=== PATIENT | male | born 1935 | race Caucasian/White ===

== ENCOUNTER → 2016-09-07 | Outpatient (CLI) | payer OTHER ==
[~2016-09-07] MED LIST: ALFU1TAB37 PO; ASPI325T39 PO; B-COCAP20 PO; CALCTAB7 PO; CAPSCRE3 TOP; CHOL100027 PO; CLR/5 PO; CYM/60 PO; CYM60 PO; DUTA1CAP3 PO; DXY100 PO; FLUO0.05 TOP; GABA800T PO; HYDR12.56 PO; LEVO100T7 PO; LEVO125T72 PO; LOSA100T65 PO; LOSA1TAB38 PO; METO-217 PO; MOME100A INH; NRN800 PO; NRV5 PO; OMEP40CA PO; OMEP40CA41 PO; POLY335025 PO; PRS5 PO; SILD100T PO; SIMV20TA2 PO; TADA5TAB11 PO; TPRSR/50 PO; TPRSR50 PO; TROS1CAP2 PO; TROS60CA PO; VNTHFA/IN INH; ZNTT/150 PO
[2016-09-07 14:29] LABS: BASO % 0.5 %; BASO ABS # 0.04 K/uL (0-0.2); COMPLETE YES; EOS % 3.2 %; HEMATOCRIT 39.9 % (42-52); IG% 0.4 %; LYMPH % 23.6 %; LYMPH ABS # 1.83 K/uL (1.2-3.4); MEAN CELL VOLUME 88.1 fL (80-100); MEAN CORPUSCULAR HEMOGLOBIN 30.7 pg (25-34); MEAN CORPUSCULAR HGB CONC 34.8 g/dl (32-36); MEAN PLATELET VOLUME 9.7 fL (7.4-10.4); MONO % 11.5 %; NEUT % 60.8 %; PLATELET COUNT 225 K/uL (130-400); RED BLOOD COUNT 4.53 M/uL (4.7-6.1); WHITE BLOOD COUNT 7.77 K/uL (4.8-10.8)
[2016-09-07 14:33] LABS: ALT/SGPT 38 U/L (12-78); BLOOD UREA NITROGEN 18 mg/dl (7-18); CALCIUM 8.7 mg/dl (8.5-10.1); CARBON DIOXIDE 25 mmol/L (21-32); CHLORIDE 106 mmol/L (98-107); GLUCOSE 92 mg/dl (70-99); POTASSIUM 4.1 mmol/L (3.5-5.1); SODIUM 140 mmol/L (136-145)
[2016-09-07 14:44] LABS: ALB/GLOB RATIO 1.3 (0.9-2); ALKALINE PHOSPHATASE 107 U/L (45-117); AST/SGOT 24 U/L (15-37); CHOLESTEROL 147 mg/dl (0-200); HDL CHOLESTEROL 49 mg/dl; LDL CHOLESTEROL CALCULATED 56 mg/dl; TRIGLYCERIDES 208 mg/dl (0-150); VERY LOW DENSITY LIPOPROT CALC 42 mg/dl
== END | disposition home or self-care (01) ==
LOC: C.LABBC 10:29
PROVIDERS: ATTEND Internal Medicine Geriatric Medicine
DX: I10 Essential (primary) hypertension (principal); E78.5 Hyperlipidemia, unspecified; M19.90 Unspecified osteoarthritis, unspecified site; J45.909 Unspecified asthma, uncomplicated; E03.9 Hypothyroidism, unspecified; B02.22 Postherpetic trigeminal neuralgia; E55.9 Vitamin D deficiency, unspecified

== ENCOUNTER → 2016-11-26 | Outpatient (CLI) | payer OTHER ==
[2016-11-26 12:02] LABS: BLOOD UREA NITROGEN 19 mg/dl (7-18); BUN/CREATININE RATIO 17.6 (10-20); CALCIUM 8.9 mg/dl (8.5-10.1); CARBON DIOXIDE 28 mmol/L (21-32); CHLORIDE 107 mmol/L (98-107); GLUCOSE 95 mg/dl (70-99); SODIUM 142 mmol/L (136-145)
== END | disposition home or self-care (01) ==
LOC: C.LABBC 07:23
PROVIDERS: ATTEND Physician Assistant
DX: I10 Essential (primary) hypertension (principal)

== ENCOUNTER 2016-12-20 18:01 | Inpatient (IN) | payer OTHER ==
[~2016-12-20] VITALS: Ht 172.7 cm; Wt 87.6 kg
[~2016-12-20 18:01] MED LIST changes: -B-COCAP20 PO; -CALCTAB7 PO; -CAPSCRE3 TOP; -CYM60 PO; -DUTA1CAP3 PO; -DXY100 PO; -HYDR12.56 PO; -LEVO100T7 PO; -LOSA100T65 PO; -MOME100A INH; -NRN800 PO; -NRV5 PO; -OMEP40CA41 PO; -PRS5 PO; -TADA5TAB11 PO; -TPRSR/50 PO; -TPRSR50 PO; -TROS1CAP2 PO; -VNTHFA/IN INH; -ZNTT/150 PO
[2016-12-20] MEDS ORDERED: SODIUM CHLORIDE 0.9% 1000ML 1,000 ML IV SCH (18:54)
--- NOTE | 2016-12-20 19:24 | DIAGNOSTIC IMAGING REPORT ---
SINGLE VIEW CHEST CLINICAL HISTORY: Strokelike symptoms. FINDINGS: An AP, portable, upright chest radiograph is compared to study dated 07/27/2016. The examination is degraded by portable technique and apical lordotic positioning. The heart is enlarged and there is atherosclerotic calcification of the thoracic aorta. The pulmonary vasculature is noncongested. A hiatal hernia is again noted. Chronic interstitial thickening is unchanged. No airspace consolidation or large pleural effusion is identified. There is mild bibasilar atelectasis. No pneumothorax is seen. The skeletal structures are osteopenic. The bony thorax is grossly intact. IMPRESSION: 1. Cardiomegaly with no acute cardiopulmonary abnormality. 2. Hiatal hernia. Electronically signed by: Anthony Mercado M.D. 12/20/2016 7:23 PM Dictated Date/Time: 12/20/2016 7:22 PM
[2016-12-20 19:31] LABS: INR 1.1 (0.9-1.1); PARTIAL THROMBOPLASTIN RATIO 1.2; PROTHROMBIN TIME (PATIENT) 11.3 SECONDS (9.0-12.0)
[2016-12-20 19:32] LABS: POTASSIUM 3.7 mmol/L (3.5-5.1)
--- NOTE | 2016-12-20 19:40 | EMERGENCY ROOM VISIT NOTE ---
History Report prepared by Yayo: Tony Singh Under the Supervision of: Dr. Anand Mueller M.D. First contact with patient: 18:47 Chief Complaint: WEAKNESS Stated Complaint: COLD, INCONTINENCE, WEAK History of Present Illness The patient is a 81 year old male who presents to the Emergency Room with complaints of persistent chills for the past few days. The patient also complains of weakness and incontinence. The patient notes that he has been weak for the past week. The patient notes difficulty getting in and out of bed and walking long distances. The patient had multiple episodes of incontinence over the weekend. He notes he has never had incontinence episodes before in the past. Per patient, he does not think his speech is any different than baseline. He does not have any history of stroke or TIA. The patient does take blood pressure medications for hypertension which has been pretty well controlled with his newest medicine. He denies any pain at this time. Source of History: patient Onset: past few days Position: other (global) Timing: other (persistent) Associated Symptoms: + urinary symptoms (incontinence), + weakness Note: Other associated symptoms: difficulty getting in and out of bed, difficulty walking long distances Denies: changes in speech, pain Review of Systems All systems have been listed, reviewed, and are negative other than those previously mentioned. Please see Additional Medical History Sheet. Past Medical & Surgical Medical Problems: (1) Asthma (2) Chest pain (3) Enlarged prostate Family History Patient reports no known family medical history. Social History Smoking Status: Never Smoker Alcohol Use: occasionally Marital Status: Housing Status: lives with significant other Occupation Status: employed Current/Historical Medications Scheduled Alfuzosin HCl (Uroxatral), 10 MG PO HS Aspirin (Aspirin Ec), 325 MG PO DAILY Calcium Carbonate-Vitamin D W/ (Caltrate 600 Plus), 1 TAB PO BID Cholecalciferol (Vitamin D 1000 Unit), 1,000 INTER.UNIT PO DAILY Duloxetine HCl (Duloxetine HCl), 60 MG PO DAILY Dutasteride (Dutasteride), 0.5 MG PO DAILY Gabapentin (Gabapentin), 800 MG PO TID Hydrochlorothiazide (Hctz), 12.5 MG PO DAILY Levothyroxine Sodium (Levothyroxine Sodium), 100 MCG PO DAILY Losartan Potassium (Cozaar), 100 MG PO DAILY Metoprolol Succinate (Metoprolol Succinate ER), 50 MG PO DAILY Mometasone Furoate-Formoterol (Dulera 100/5 Mcg), 2 PUFFS INH Q12 Omeprazole (Prilosec), 40 MG PO DAILY Polyethylene Glycol 3350 (Miralax), 1 TBS PO HS Ranitidine (Zantac), 150 MG PO HS Simvastatin (Zocor), 20 MG PO QPM Tadalafil (Cialis), 5 MG PO DAILY Trospium Chloride (Trospium Chloride Er), 60 MG PO DAILY Scheduled PRN Albuterol Hfa (Ventolin Hfa), 2 PUFF INH Q4 PRN for Shortness of Breath Capsaicin (Zostrix Arthritis Pain Re), 1 APPLN TOP QID PRN for Pain Desloratadine (Clarinex), 5 MG PO DAILY PRN for ALLERGIES Allergies Coded Allergies: Erythromycin (Verified Allergy, Intermediate, THROAT BEGAN TO SWELL SHUT, 09/04/15) PT Lisinopril (Verified Adverse Reaction, Intermediate, COUGH, 09/04/15) Atorvastatin (Verified Adverse Reaction, Unknown, MYALGIAS, 09/04/15) PT/ALLSCRIPTS Physical Exam Vital Signs Date Time Temp Pulse Resp B/P Pulse Ox O2 Delivery O2 Flow Rate FiO2 12/20/16 22:00 124 22 117/86 92 Nasal Cannula 2.0 12/20/16 21:30 126 22 147/81 93 Nasal Cannula 2.0 12/20/16 20:29 119 22 158/79 94 Nasal Cannula 2.0 12/20/16 20:28 88 Room Air 12/20/16 19:51 118 16 154/73 93 Room Air 12/20/16 19:27 113 12/20/16 19:16 114 18 154/68 93 Room Air 12/20/16 19:15 93 Room Air 12/20/16 18:39 37.4 99 20 106/68 97 Room Air Physical Exam GENERAL: Patient awake, alert, oriented x 3. Patient follows commands. Patient does not appear toxic. Patient is adequately hydrated and well- nourished. Speech is okay. SKIN: Mottled appearance to his abdomen. HEENT: Normal head, pupils equal, reactive to light and accommodation. Left eye slightly red. Left facial droop. Oral cavity and posterior pharynx appear normal. Neck: Without adenopathy, no neck vein distention. LUNGS: Clear to auscultation. No wheezes, no rales, no rhonchi. HEART: No murmurs. No gallops. No rubs ABDOMEN: No masses, no rebound, no hepatomegaly or splenomegaly. Mottled appearance to skin over abdomen. EXTREMITIES: Weakness of left leg, other extremities appear okay. NEUROLOGIC: Cranial nerves II-XII within normal limits. See nurses' note fo NIH stroke score. Medical Decision & Procedures ER Provider Diagnostic Interpretation: Radiology results as stated below per my review and radiologist interpretation: CT SCAN OF THE BRAIN WITHOUT IV CONTRAST CLINICAL HISTORY: Strokelike symptoms. COMPARISON STUDY: No priors. TECHNIQUE: Unenhanced axial CT scan of the brain is performed from the vertex to the skull base. CT DOSE: 909.34 mGy.cm FINDINGS: Brain parenchyma: There are age-related involutional changes noting mild subcortical and periventricular microangiopathic change. There is no hemorrhage, mass effect, or evidence of acute territorial ischemia by CT criteria. Ponce-white matter is preserved. No extra-axial fluid collection is seen. Ventricles, sulci, cisterns: Prominent secondary to involutional change. Intracranial vasculature: There is atherosclerotic calcification of the cavernous carotid and vertebral arteries. Calvarium: Unremarkable. Sinuses and mastoids: There are large retention cyst within the maxillary antra. The paranasal sinuses are otherwise clear. The mastoid air cells are well pneumatized. Orbits: The bony orbits are grossly intact. There is a left ocular lens implant. IMPRESSION: There is no hemorrhage, mass effect, or evidence of acute territorial ischemia by CT criteria. Electronically signed by: Anthony Mercado M.D. 12/20/2016 7:50 PM Dictated Date/Time: 12/20/2016 7:48 PM SINGLE VIEW CHEST CLINICAL HISTORY: Strokelike symptoms. FINDINGS: An AP, portable, upright chest radiograph is compared to study dated 07/27/2016. The examination is degraded by portable technique and apical lordotic positioning. The heart is enlarged and there is atherosclerotic calcification of the thoracic aorta. The pulmonary vasculature is noncongested. A hiatal hernia is again noted. Chronic interstitial thickening is unchanged. No airspace consolidation or large pleural effusion is identified. There is mild bibasilar atelectasis. No pneumothorax is seen. The skeletal structures are osteopenic. The bony thorax is grossly intact. IMPRESSION: 1. Cardiomegaly with no acute cardiopulmonary abnormality. 2. Hiatal hernia. Electronically signed by: Anthony Mercado M.D. 12/20/2016 7:23 PM Dictated Date/Time: 12/20/2016 7:22 PM Laboratory Results 12/20/16 19:05 Red Blood Count 4.77, Mean Corpuscular Volume 88.3, Mean Corpuscular Hemoglobin 30.8, Mean Corpuscular Hemoglobin Concent 34.9, Mean Platelet Volume 11.1, Neutrophils (%) (Auto) 83.2, Lymphocytes (%) (Auto) 7.8, Monocytes (%) (Auto) 7.3, Eosinophils (%) (Auto) 0.2, Basophils (%) (Auto) 0.4, Neutrophils # (Auto) 4.36, Lymphocytes # (Auto) 0.41, Monocytes # (Auto) 0.38, Eosinophils # (Auto) 0.01, Basophils # (Auto) 0.02 12/20/16 19:05 Test 12/20/16 19:05 12/20/16 22:02 12/20/16 22:16 White Blood Count 5.24 K/uL (4.8-10.8) Red Blood Count 4.77 M/uL (4.7-6.1) Hemoglobin 14.7 g/dL (14.0-18.0) Hematocrit 42.1 % (42-52) Mean Corpuscular Volume 88.3 fL (80-100) Mean Corpuscular Hemoglobin 30.8 pg (25-34) Mean Corpuscular Hemoglobin Concent 34.9 g/dl (32-36) Platelet Count 47 K/uL (130-400) Mean Platelet Volume 11.1 fL (7.4-10.4) Neutrophils (%) (Auto) 83.2 % Lymphocytes (%) (Auto) 7.8 % Monocytes (%) (Auto) 7.3 % Eosinophils (%) (Auto) 0.2 % Basophils (%) (Auto) 0.4 % Neutrophils # (Auto) 4.36 K/uL (1.4-6.5) Lymphocytes # (Auto) 0.41 K/uL (1.2-3.4) Monocytes # (Auto) 0.38 K/uL (0.11-0.59) Eosinophils # (Auto) 0.01 K/uL (0-0.5) Basophils # (Auto) 0.02 K/uL (0-0.2) RDW Standard Deviation 45.8 fL (36.4-46.3) RDW Coefficient of Variation 14.1 % (11.5-14.5) Immature Granulocyte % (Auto) 1.1 % Immature Granulocyte # (Auto) 0.06 K/uL (0.00-0.02) Platelet Estimate DECREASED Red Blood Cell Morphology Unremarkable Prothrombin Time 11.3 SECONDS (9.0-12.0) Prothromb Time International Ratio 1.1 (0.9-1.1) Activated Partial Thromboplast Time 30.6 SECONDS (21.0-31.0) Partial Thromboplastin Ratio 1.2 Anion Gap 12.0 mmol/L (3-11) Est Creatinine Clear Calc Drug Dose 22.6 ml/min Estimated GFR () 21.9 Estimated GFR (Non- 18.9 BUN/Creatinine Ratio 17.0 (10-20) Calcium Level 9.0 mg/dl (8.5-10.1) Total Bilirubin 1.9 mg/dl (0.2-1) Aspartate Amino Transf (AST/SGOT) 147 U/L (15-37) Alanine Aminotransferase (ALT/SGPT) 66 U/L (12-78) Alkaline Phosphatase 79 U/L (45-117) Total Protein 7.8 gm/dl (6.4-8.2) Albumin 3.7 gm/dl (3.4-5.0) Globulin 4.1 gm/dl (2.5-4.0) Albumin/Globulin Ratio 0.9 (0.9-2) Creatine Kinase MB Ratio (0-3.0) Laboratory results as stated above per my review. Medications Administered Medications (Trade) Dose Ordered Sig/Sheree Route Start Time Stop Time Status Last Admin Dose Admin Sodium Chloride (Nss 1000ml) 1,000 ml @ 50 mls/hr Q20H IV 12/20/16 18:54 01/19/17 18:53 12/20/16 20:32 50 MLS/HR ECG Indication: other Rate (beats per minute): 115 Rhythm: sinus tachycardia Findings: nonspecific-ST abn, no ectopy ED Course 1850: Past medical records reviewed. The patient was evaluated in room C7. A complete history and physical examination was performed. 1853: Ordered NSS 1000 ml @ 50 mls/hr IV. 2117: At this time, I discussed the patient's case with Dr. Fareed BETTENCOURT and he agreed to accept the patient for further evaluation. Medical Decision Differential diagnoses include TIA, CVA, intracranial hemorrhage, recent history of herpetic infection. The patient has a slight droop on the left side of his face. Also has some left leg weakness. The meantime his troponin returned significantly elevated. The patient does not have any marked changes on his EKG. Multiple other labs were obtained. BUN and creatinine are elevated. AST and bilirubin are also elevated. Please see above. The patient may have had a myocardial infarction within the past week. That is when his symptoms began. He also may have had a small stroke although CT does not reveal any findings. The patient does not meet criteria for TPA due to his extended last well-known time. I discussed care with the patient and with the hospitalist. Consults Time Called: 2111 Consulting Physician: Dr. Fareed BETTENCOURT Returned Call: [phone] At this time, I discussed the patient's case with Dr. Guerrier and he agreed to accept the patient for further evaluation. Impression Primary Impression: Elevated troponin Additional Impression: Stroke-like symptoms Scribe Attestation The scribe's documentation has been prepared under my direction and personally reviewed by me in its entirety. I confirm that the note above accurately reflects all work, treatment, procedures, and medical decision making performed by me. Departure Information Dispostion Being Evaluated By Hospitalist Referrals Gio Angel M.D. (PCP) Stroke History Time Last Known Well One Week Ago Stroke t-PA Criteria Reviewed Does NOT meet criteria for t-PA Reason t-PA Not Given Treatment not indicated (patient does not meet crtieria for TPA due to lengthy last known well time) Problem Qualifiers
[2016-12-20 19:45] LABS: ALB/GLOB RATIO 0.9 (0.9-2)
--- NOTE | 2016-12-20 19:51 | DIAGNOSTIC IMAGING REPORT ---
CT SCAN OF THE BRAIN WITHOUT IV CONTRAST CLINICAL HISTORY: Strokelike symptoms. COMPARISON STUDY: No priors. TECHNIQUE: Unenhanced axial CT scan of the brain is performed from the vertex to the skull base. CT DOSE: 909.34 mGy.cm FINDINGS: Brain parenchyma: There are age-related involutional changes noting mild subcortical and periventricular microangiopathic change. There is no hemorrhage, mass effect, or evidence of acute territorial ischemia by CT criteria. Ponce-white matter is preserved. No extra-axial fluid collection is seen. Ventricles, sulci, cisterns: Prominent secondary to involutional change. Intracranial vasculature: There is atherosclerotic calcification of the cavernous carotid and vertebral arteries. Calvarium: Unremarkable. Sinuses and mastoids: There are large retention cyst within the maxillary antra. The paranasal sinuses are otherwise clear. The mastoid air cells are well pneumatized. Orbits: The bony orbits are grossly intact. There is a left ocular lens implant. IMPRESSION: There is no hemorrhage, mass effect, or evidence of acute territorial ischemia by CT criteria. Electronically signed by: Anthony Mercado M.D. 12/20/2016 7:50 PM Dictated Date/Time: 12/20/2016 7:48 PM
[2016-12-20] MEDS ORDERED: LOSA100T65 PO (19:54)
[2016-12-20] MEDS ORDERED: CAPSCRE3 TOP (19:54)
[2016-12-20] MEDS ORDERED: VNTHFA/IN INH (19:54)
[2016-12-20] MEDS ORDERED: CALCTAB7 PO (19:54)
[2016-12-20] MEDS ORDERED: ZNTT/150 PO (19:54)
[2016-12-20] MEDS ORDERED: MOME100A INH (19:54)
[2016-12-20] MEDS ORDERED: HYDR12.56 PO (19:54)
[2016-12-20] MEDS ORDERED: TPRSR/50 PO (19:54)
[2016-12-20] MEDS ORDERED: CYM60 PO (19:54)
[2016-12-20] MEDS ORDERED: OMEP40CA41 PO (19:54)
[2016-12-20] MEDS ORDERED: TADA5TAB11 PO (19:54)
[2016-12-20] MEDS ORDERED: LEVO100T7 PO (19:54)
[2016-12-20] MEDS ORDERED: DUTA1CAP3 PO (19:54)
[2016-12-20] MEDS ORDERED: NRN800 PO (19:54)
[2016-12-20] MEDS ORDERED: TROS1CAP2 PO (19:54)
[2016-12-20] MEDS ORDERED: ASPI325T39 PO (19:54)
[2016-12-20 20:18] LABS: HEMATOCRIT 42.1 % (42-52); MEAN CELL VOLUME 88.3 fL (80-100); MEAN CORPUSCULAR HEMOGLOBIN 30.8 pg (25-34); MEAN CORPUSCULAR HGB CONC 34.9 g/dl (32-36); MEAN PLATELET VOLUME 11.1 fL (7.4-10.4); PLATELET COUNT 47 K/uL (130-400); RED BLOOD COUNT 4.77 M/uL (4.7-6.1); WHITE BLOOD COUNT 5.24 K/uL (4.8-10.8)
[2016-12-20 20:24] LABS: BASO % 0.4 %; BASO ABS # 0.02 K/uL (0-0.2); COMPLETE YES; EOS % 0.2 %; IG% 1.1 %; LYMPH % 7.8 %; LYMPH ABS # 0.41 K/uL (1.2-3.4); MONO % 7.3 %; NEUT % 83.2 %; PLT ESTIMATE DECREASED
[2016-12-20] MEDS ORDERED: LORATADINE 10 MG TAB PO PRN (22:00)
[2016-12-20] MEDS ORDERED: NITROGLYCERIN 0.4 MG SL PER TAB CHARGE SL PRN (22:00)
[2016-12-20] MEDS ORDERED: METOPROLOL SUCC 50MG EXT REL TAB PO STA (22:05)
[2016-12-20] MEDS ORDERED: PIPERACILLIN/TAZOBACTAM 4.5 GM/100ML D5W IV STA (22:06)
--- NOTE | 2016-12-20 22:14 | History and Physical ---
History & Physical Date & Time of Service: December 20, 2016 at 22:09 Chief Complaint: Cold, Incontinence, Weak Primary Care Physician: Gio Angel M.D. History of Present Illness Source: patient, family The patient is a 81 yo male who was visiting a friend in [place] 3 days ago , when he started to develop fever and chills, and then travelled back home. Over the next 2 days he has had several episodes ( up to 18) episodes of urinary incontinence., and has become progressively more fatigued and SOB, but denies chest pain. He denies blood in urine or stool. He has a known issue with frequent urination, and is on meds for that. His son has noticed him having SOB , but no chest pain during this time, and that he has been taking shorter steps in a type of festinating gait, being more unsure of himself when he walks. Neither the son or the patient have noticed focal weakness of arms or legs on right or left side, but the patient reports that he has felt generally more tired and weak. The son also reports upon questioning that he thinks his father' s left sided facial droop worsened about 1 1/2 weeks ago. Past Medical/Surgical History Medical Problems: (1) Asthma Status: Chronic (2) Enlarged prostate Status: Chronic Family History Patient reports no known family medical history. Social History Smoking Status: Never Smoker Smokeless Tobacco Use: No Alcohol Use: none Drug Use: none Occupational Status: retired Multi-Drug Resistant Organisms History of MDRO: No Allergies Coded Allergies: Erythromycin (Verified Allergy, Intermediate, THROAT BEGAN TO SWELL SHUT, 09/04/15) PT Lisinopril (Verified Adverse Reaction, Intermediate, COUGH, 09/04/15) Atorvastatin (Verified Adverse Reaction, Unknown, MYALGIAS, 09/04/15) PT/ALLSCRIPTS Home Medications Scheduled Alfuzosin HCl (Uroxatral), 10 MG PO HS Aspirin (Aspirin Ec), 325 MG PO DAILY Calcium Carbonate-Vitamin D W/ (Caltrate 600 Plus), 1 TAB PO BID Cholecalciferol (Vitamin D 1000 Unit), 1,000 INTER.UNIT PO DAILY Duloxetine HCl (Duloxetine HCl), 60 MG PO DAILY Dutasteride (Dutasteride), 0.5 MG PO DAILY Gabapentin (Gabapentin), 800 MG PO TID Hydrochlorothiazide (Hctz), 12.5 MG PO DAILY Levothyroxine Sodium (Levothyroxine Sodium), 100 MCG PO DAILY Losartan Potassium (Cozaar), 100 MG PO DAILY Metoprolol Succinate (Metoprolol Succinate ER), 50 MG PO DAILY Mometasone Furoate-Formoterol (Dulera 100/5 Mcg), 2 PUFFS INH Q12 Omeprazole (Prilosec), 40 MG PO DAILY Polyethylene Glycol 3350 (Miralax), 1 TBS PO HS Ranitidine (Zantac), 150 MG PO HS Simvastatin (Zocor), 20 MG PO QPM Tadalafil (Cialis), 5 MG PO DAILY Trospium Chloride (Trospium Chloride Er), 60 MG PO DAILY Scheduled PRN Albuterol Hfa (Ventolin Hfa), 2 PUFF INH Q4 PRN for Shortness of Breath Capsaicin (Zostrix Arthritis Pain Re), 1 APPLN TOP QID PRN for Pain Desloratadine (Clarinex), 5 MG PO DAILY PRN for ALLERGIES Review of Systems Constitutional: + chills, + fatigue, + fever, + weakness, No sweats, No weight loss Eyes: No diplopia, No discharge, No eye pain, No problem reported, No redness, No worsening of vision ENT: No dental problems, No hearing loss, No nasal symptoms, No problem reported, No sore throat, No tinnitus, No trouble swallowing, No unusual epistaxis Respiratory: + dyspnea on exertion, + shortness of breath, No cough, No dyspnea at rest, No hemoptysis, No sputum, No wheezing Cardiovascular: No PND, No chest pain, No claudication, No edema, No orthopnea , No palpitations, No problem reported Abdomen: + diarrhea, + nausea, No GI bleeding, No constipation, No pain, No vomiting Musculoskeletal: No calf pain, No joint pain, No muscle pain, No problem reported, No swelling Genitourinary - Male: + urinary frequency, + urinary incontinence, + urinary retention, + urinary urgency, No dysuria, No hematuria, No impotence, No lesions , No penile discharge, No urinary hesitancy Psychiatric: No anhedonism, No anxiety, No depression symptoms, No insomnia, No problem reported, No substance abuse Endocrine: No excessive thirst, No excessive urination, No fatigue, No problem reported Hematologic / Lymphatic: No abnormal bleeding/bruising, No clotting problems, No night sweats, No problem reported, No swollen lymph nodes Integumentary: No bleeding, No color change, No itch, No new/changing skin lesions, No problem reported, No rash Allergic / Immunologic: No environmental allergies, No food allergies, No frequent infections, No hives, No pet sensitivities, No poor healing, No problem reported, No prolonged convalescence, No seasonal allergies Physical Exam Vital Signs Date Time Temp Pulse Resp B/P Pulse Ox O2 Delivery O2 Flow Rate FiO2 12/20/16 21:30 126 22 147/81 93 Nasal Cannula 2.0 12/20/16 20:29 119 22 158/79 94 Nasal Cannula 2.0 12/20/16 20:28 88 Room Air 12/20/16 19:51 118 16 154/73 93 Room Air 12/20/16 19:27 113 12/20/16 19:16 114 18 154/68 93 Room Air 12/20/16 19:15 93 Room Air 12/20/16 18:39 37.4 99 20 106/68 97 Room Air General Appearance: + mild distress, + pertinent finding (left facial droop.) Head: normocephalic, atraumatic Eyes: normal inspection, PERRL, EOMI, sclerae normal ENT: normal ENT inspection, hearing grossly normal, pharynx normal Neck: supple, no adenopathy, thyroid normal, no JVD, no carotid bruits, trachea midline Respiratory/Chest: chest non-tender, lungs clear, no respiratory distress, no accessory muscle use, + decreased breath sounds Cardiovascular: no gallop, no JVD, no murmur, normal peripheral pulses, + tachycardia Abdomen/GI: normal bowel sounds, non tender, soft, no organomegaly, no pulsatile mass Back: normal inspection, no CVA tenderness, no muscle spasm, normal range of motion Extremities/Musculoskelatal: normal inspection, no calf tenderness, normal capillary refill, normal range of motion, non-tender, + pedal edema (1+ bilateral) Neurologic/Psych: processing specialist II-XII nml as tested, no motor/sensory deficits, alert, normal mood/affect, oriented x 3 Skin: normal color, warm/dry, no rash Lymphatic: no adenopathy Diagnostics Laboratory Results Results Past 24 Hours Test 12/20/16 19:05 5/1/17 22:02 Range/Units White Blood Count 5.24 4.8-10.8 K/uL Red Blood Count 4.77 4.7-6.1 M/uL Hemoglobin 14.7 14.0-18.0 g/dL Hematocrit 42.1 42-52 % Mean Corpuscular Volume 88.3 80-100 fL Mean Corpuscular Hemoglobin 30.8 25-34 pg Mean Corpuscular Hemoglobin Concent 34.9 32-36 g/dl Platelet Count 47 130-400 K/uL Mean Platelet Volume 11.1 7.4-10.4 fL Neutrophils (%) (Auto) 83.2 % Lymphocytes (%) (Auto) 7.8 % Monocytes (%) (Auto) 7.3 % Eosinophils (%) (Auto) 0.2 % Basophils (%) (Auto) 0.4 % Neutrophils # (Auto) 4.36 1.4-6.5 K/uL Lymphocytes # (Auto) 0.41 1.2-3.4 K/uL Monocytes # (Auto) 0.38 0.11-0.59 K/uL Eosinophils # (Auto) 0.01 0-0.5 K/uL Basophils # (Auto) 0.02 0-0.2 K/uL RDW Standard Deviation 45.8 36.4-46.3 fL RDW Coefficient of Variation 14.1 11.5-14.5 % Immature Granulocyte % (Auto) 1.1 % Immature Granulocyte # (Auto) 0.06 0.00-0.02 K/uL Platelet Estimate DECREASED Red Blood Cell Morphology Unremarkable Prothrombin Time 11.3 9.0-12.0 SECONDS Prothromb Time International Ratio 1.1 0.9-1.1 Activated Partial Thromboplast Time 30.6 21.0-31.0 SECONDS Partial Thromboplastin Ratio 1.2 Sodium Level 139 136-145 mmol/L Potassium Level 3.7 3.5-5.1 mmol/L Chloride Level 102 98-107 mmol/L Carbon Dioxide Level 25 21-32 mmol/L Anion Gap 12.0 3-11 mmol/L Blood Urea Nitrogen 51 7-18 mg/dl Creatinine 3.00 0.60-1.40 mg/dl Est Creatinine Clear Calc Drug Dose 22.6 ml/min Estimated GFR () 21.9 Estimated GFR (Non- 18.9 BUN/Creatinine Ratio 17.0 10-20 Random Glucose 119 70-99 mg/dl Calcium Level 9.0 8.5-10.1 mg/dl Total Bilirubin 1.9 0.2-1 mg/dl Aspartate Amino Transf (AST/SGOT) 147 15-37 U/L Alanine Aminotransferase (ALT/SGPT) 66 12-78 U/L Alkaline Phosphatase 79 45-117 U/L Troponin I 13.000 0-0.045 ng/ml Total Protein 7.8 6.4-8.2 gm/dl Albumin 3.7 3.4-5.0 gm/dl Globulin 4.1 2.5-4.0 gm/dl Albumin/Globulin Ratio 0.9 0.9-2 Diagnostic Radiology Patient Name: CHARLEY BROWN Unit Number: [id number] Dictated: 12/20/161947 Transcribed: 12/20/161947 EV Printed Date/Time: [~ rep prt dt]/[~ rep prt tm] [~ rep ct labl] - [~ rep ct ivnm] [facility] [place] [address] Dictated: 12/20/161947 Transcribed: 12/20/161947 EV Printed Date/Time: [~ rep prt dt]/[~ rep prt tm] [~ rep ct labl] - [~ rep ct ivnm] CT SCAN OF THE BRAIN WITHOUT IV CONTRAST CLINICAL HISTORY: Strokelike symptoms. COMPARISON STUDY: No priors. TECHNIQUE: Unenhanced axial CT scan of the brain is performed from the vertex to the skull base. CT DOSE: 909.34 mGy.cm FINDINGS: Brain parenchyma: There are age-related involutional changes noting mild subcortical and periventricular microangiopathic change. There is no hemorrhage, mass effect, or evidence of acute territorial ischemia by CT criteria. Ponce-white matter is preserved. No extra-axial fluid collection is seen. Ventricles, sulci, cisterns: Prominent secondary to involutional change. Intracranial vasculature: There is atherosclerotic calcification of the cavernous carotid and vertebral arteries. Calvarium: Unremarkable. Sinuses and mastoids: There are large retention cyst within the maxillary antra. The paranasal sinuses are otherwise clear. The mastoid air cells are well pneumatized. Orbits: The bony orbits are grossly intact. There is a left ocular lens implant. IMPRESSION: There is no hemorrhage, mass effect, or evidence of acute territorial ischemia by CT criteria. Electronically signed by: Anthony Mercado M.D. 12/20/2016 7:50 PM Dictated Date/Time: 12/20/2016 7:48 PM The status of this report is Signed. Draft = Not yet reviewed or approved by Radiologist. Signed = Reviewed and approved by Radiologist. <AttendingPhy></AttendingPhy> <FamilyPhy>Gio Angel M.D.</FamilyPhy> < PrimaryPhy>Gio Angel M.D.</PrimaryPhy> <UnitNumber>[id number]</UnitNumber > <VisitNumber>[id number]</VisitNumber> <PatientName>NATICHARLEY COLLINS</ PatientName> <DateOfBirth>1935</DateOfBirth> <Location>[facility]</Location> < ServiceDate>12/20/16</ServiceDate> <MNE>ESINDI</MNE> <OrderingPhy>Anand Mueller M.D.</OrderingPhy> <OrderingPhyMNE>f rep ord dr still</OrderingPhyMNE> < DictatingPhyMNE>f rep dict dr still</DictatingPhyMNE> <CCListMNE>f rep ct daoe</ CCListMNE> <AdmittingPhyMNE>f pt admit dr still</AdmittingPhyMNE> <AttendingPhyMNE >f pt attend dr still</AttendingPhyMNE> <ConsultingPhyMNE>f pt consult dr still</ConsultingPhyMNE> <FamilyPhyMNE>f pt fam dr still</FamilyPhyMNE> <OtherPhyMNE>f pt other dr still</OtherPhyMNE> < PrimaryPhyMNE>f pt prim care dr still</PrimaryPhyMNE> <ReferringPhyMNE>f pt referring dr still</ReferringPhyMNE> Patient Name: CHARLEY BROWN Unit Number: [id number] Dictated: 12/20/161921 Transcribed: 12/20/161921 EV Printed Date/Time: [~ rep prt dt]/[~ rep prt tm] [~ rep ct labl] - [~ rep ct ivnm] [facility] [place] [place] [address] Dictated: 12/20/161921 Transcribed: 12/20/161921 EV Printed Date/Time: [~ rep prt dt]/[~ rep prt tm] [~ rep ct labl] - [~ rep ct ivnm] SINGLE VIEW CHEST CLINICAL HISTORY: Strokelike symptoms. FINDINGS: An AP, portable, upright chest radiograph is compared to study dated 07/27/2016. The examination is degraded by portable technique and apical lordotic positioning. The heart is enlarged and there is atherosclerotic calcification of the thoracic aorta. The pulmonary vasculature is noncongested. A hiatal hernia is again noted. Chronic interstitial thickening is unchanged. No airspace consolidation or large pleural effusion is identified. There is mild bibasilar atelectasis. No pneumothorax is seen. The skeletal structures are osteopenic. The bony thorax is grossly intact. IMPRESSION: 1. Cardiomegaly with no acute cardiopulmonary abnormality. 2. Hiatal hernia. Electronically signed by: Anthony Mercado M.D. 12/20/2016 7:23 PM Dictated Date/Time: 12/20/2016 7:22 PM The status of this report is Signed. Draft = Not yet reviewed or approved by Radiologist. Signed = Reviewed and approved by Radiologist. <AttendingPhy></AttendingPhy> <FamilyPhy>Gio Angel M.D.</FamilyPhy> < PrimaryPhy>Gio Angel M.D.</PrimaryPhy> <UnitNumber>[id number]</UnitNumber > <VisitNumber>[id number]</VisitNumber> <PatientName>STEPHANIECHARLEY</ PatientName> <DateOfBirth>1935</DateOfBirth> <Location>[facility]</Location> < ServiceDate>12/20/16</ServiceDate> <MNE>ESINDI</MNE> <OrderingPhy>Anand Mueller M.D.</OrderingPhy> <OrderingPhyMNE>f rep ord dr mne</OrderingPhyMNE> < DictatingPhyMNE>f rep dict dr still</DictatingPhyMNE> <CCListMNE>f rep ct mne</ CCListMNE> <AdmittingPhyMNE>f pt admit dr still</AdmittingPhyMNE> <AttendingPhyMNE >f pt attend dr still</AttendingPhyMNE> <ConsultingPhyMNE>f pt consult dr still</ConsultingPhyMNE> <FamilyPhyMNE>f pt fam dr still</FamilyPhyMNE> <OtherPhyMNE>f pt other dr still</OtherPhyMNE> < PrimaryPhyMNE>f pt prim care dr still</PrimaryPhyMNE> <ReferringPhyMNE>f pt referring dr still</ReferringPhyMNE> EKG EKG shows sinus tachycardia at 111 bpm, prominent Q wave in lead III, mild ST depressions in leads V5 and V6. Impression Assessment and Plan NSTEMI/hypertension--troponin was elevated at 13.00. The patient will be admitted to the telemetry unit for serial cardiac enzymes, cardiac rhythm monitoring and a 2-D echocardiogram with Dopplers. We'll consult cardiology. Continue metoprolol succinate ER 50 mg by mouth daily Left facial droop/relative weakness of left leg and attempting to lift--the patient's son reports he noted the worsening left patient to be about one weeks ago. The patient's relative weakness in the left leg upon attending the left may be associated with his left total hip arthroplasty, as his ability to push down with this foot and pullback with his foot is very good. He's had a CT of the head which is negative, and will order an MRI brain and MRA of the head without contrast ( due to ARF), and Carotid Dopplers. Will hold his aspirin 325 mg by mouth daily at this time due to low platelets. Prostatitis/urinary incontinence/BPH--patient's symptoms of fevers and chills began when he made a 1 1/2 hour trip by car to [place], and then upon return 1 1/2 hour trip began to develop urinary incontinence for the next 2 days. This is also let him to be quite dehydrated. He'll be placed on Zosyn 3.375 mg IV every 8 hours, after initial 4.5 g dose. We'll follow urine culture and sensitivity results. Continue Uroxatral 10 mg by mouth at bedtime, and dutasteride 0.5 mg by mouth daily. For now hold Cialis 5 mg by mouth daily and is trospium chloride ER 60 mg by mouth daily. Acute renal failure--patient's creatinine of 3.00 significantly elevated from is 1.1 on November 26. Likely secondary to dehydration from increased urination, we 'll place a Bynum catheter, and hydrate with IV fluids. We'll follow serial BMP and magnesium levels. Hold losartan 100 mg by mouth daily and HCTZ 12.5 mg by mouth daily. Thrombocytopenia--platelets were 47 at admission, and were 225 on September 07. We'll need to hold his aspirin 325 mg by mouth daily at this time, this may be a sign of DIC and will need to be followed closely to see if he improves with treatment for the underlying infection. Will also hold ranitidine 150 mg by mouth at bedtime. COPD--hold delirium and trospium chloride ER, and will have available Xopenex/ Atrovent nebulizers every 2 hours when necessary. Hypercholesterolemia--continue simvastatin 20 mg by mouth every afternoon. Hypothyroidism--continue levothyroxine sodium 100 g by mouth daily. Peripheral neuropathy--continue gabapentin 800 mg by mouth 3 times a day. GERD--change omeprazole 40 mg by mouth daily to pantoprazole 40 mg by mouth daily. Depression--continue duloxetine 60 mg by mouth daily. Next Constipation--continue MiraLAX 17 joseph by mouth at bedtime. Seasonal allergy--change Clarinex to Claritin daily when necessary. Level of Care Telemetry Advanced Directives Existing Advance Directive: No Existing Living Will: No Existing Power of Bander Hand: No Resuscitation Status FULL RESUSCITATION VTE Prophylaxis Risk Level: Moderate Given or contraindicated: SCD's
[2016-12-20] MEDS ORDERED: ONDANSETRON INJ 2 MG/ML 2 ML VIAL IV PRN (22:15)
--- NOTE | 2016-12-20 23:04 | DIAGNOSTIC IMAGING REPORT ---
ULTRASOUND OF THE CAROTID ARTERIES CLINICAL HISTORY: Transient ischemic attack. COMPARISON STUDY: Carotid artery ultrasound dated 09/17/2013. TECHNIQUE: Real-time, grayscale, and color Doppler sonography of the carotid arteries is performed. Images are reviewed in the transverse and longitudinal planes. FINDINGS: Blood pressure in the right arm measures 140/75 and blood pressure in the left arm measures 137/84. The carotid arteries are patent bilaterally and demonstrate antegrade flow. There is [id number] echogenic shadowing atherosclerotic plaque seen in the carotid bulbs bilaterally. Normal doppler arterial waveforms are seen throughout. Velocity measurements are listed below. Common carotid peak systolic velocity (cm/sec): RIGHT: 101 LEFT: 164 ICA proximal peak systolic velocity (cm/sec): RIGHT: 130 LEFT: 74 ICA mid peak systolic velocity (cm/sec): RIGHT: 111 LEFT: 78 ICA distal peak systolic velocity (cm/sec): RIGHT: 94 LEFT: 109 ICA/CC peak systolic ratio: RIGHT: 1.3 LEFT: 0.7 Antegrade flow was shown in the vertebral arteries. The external carotid arteries are patent. Mildly elevated velocities are present within the external carotid arteries bilaterally measuring up to 186 cm/s. This suggests some degree of stenosis. IMPRESSION: 1. 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 2. There is no sonographic evidence of hemodynamically significant stenosis in the left carotid arterial system. 3. Antegrade flow is shown in the vertebral arteries. Electronically signed by: Anthony Mercado M.D. 12/20/2016 11:03 PM Dictated Date/Time: 12/20/2016 11:01 PM
[2016-12-20 23:20] LABS: CHOLESTEROL/HDL RATIO 8.6; CKMB/CK RATIO 0.3 (0-3.0)
[2016-12-20] MEDS ORDERED: LORAZEPAM 2 MG/ML 1 ML VIAL IV STA (23:35)
[2016-12-21] VITALS (12 sets, daily range): BP systolic 117–157; BP diastolic 67–83; PULSE 101–111; TEMP 37–38.4; O2SAT 92–96; Ht 172.7 cm; Wt 87.6 kg
[2016-12-21] MEDS: SODIUM CHLORIDE 0.9% 1000ML 1,000 ML IV SCH ×2 (02:12→16:10)
[2016-12-21] MEDS ORDERED: PIPERACILL/TAZOBAC CONSULT ACTIVE PRN (02:15)
[2016-12-21] MEDS: PIPERACILL/TAZOBAC IV 3.375 GM in DEXTROSE 5% 100ML 100 ML IV SCH ×3 (04:09→19:51)
[2016-12-21] MEDS: LEVOTHYROXINE 100 MCG TAB PO SCH (06:00)
--- NOTE | 2016-12-21 06:34 | DIAGNOSTIC IMAGING REPORT ---
MRI OF THE BRAIN WITHOUT CONTRAST CLINICAL HISTORY: Transient ischemic attack COMPARISON STUDY: Noncontrast head CT dated 12/20/2016 FINDINGS: Sagittal T1, axial diffusion, proton density and T2 weighted axial, coronal FLAIR, and axial T1-weighted images were acquired. No intra or extra-axial mass lesions are visualized Axial diffusion-weighted images reveal no evidence of acute or subacute infarction. There is no evidence of ventricular dilatation. Proton density T2-weighted and FLAIR images reveal scattered foci of increased T2 signal within the white matter, likely on a small vessel basis. There are no abnormal flow voids. There are bilateral maxilla sinus retention cysts. IMPRESSION: 1. No acute intracranial findings 2. No evidence of acute or subacute infarction 3. No evidence of intracranial mass 4. Scattered foci of increased T2 signal within the white matter, likely on a small vessel basis Electronically signed by: Theodore Garcia M.D. 12/21/2016 6:33 AM Dictated Date/Time: 12/21/2016 6:31 AM
--- NOTE | 2016-12-21 06:50 | DIAGNOSTIC IMAGING REPORT ---
Brain MRA HISTORY: Mental status change TIA TECHNIQUE: 3-D [id number] MRA of the brain was performed without contrast. COMPARISON STUDY: None. FINDINGS: Visualized intracranial internal carotid arteries, distal vertebral arteries, and basilar artery are widely patent. There is no significant stenosis, occlusion, or aneurysm seen within the bilateral ACAs, MCAs, or gmat instructor. IMPRESSION: No significant stenosis, occlusion, or aneurysm within the [place]. Electronically signed by: Josh Ro M.D. 12/21/2016 6:48 AM Dictated Date/Time: 12/21/2016 6:48 AM
[2016-12-21 06:58] LABS: INR 1.1 (0.9-1.1); PARTIAL THROMBOPLASTIN RATIO 1.3; PROTHROMBIN TIME (PATIENT) 12.1 SECONDS (9.0-12.0)
[2016-12-21 07:10] LABS: BASO % 0.3 %; BASO ABS # 0.01 K/uL (0-0.2); COMPLETE YES; HEMATOCRIT 35.2 % (42-52); IG% 0.8 %; LYMPH % 8.3 %; MEAN CELL VOLUME 87.1 fL (80-100); MEAN CORPUSCULAR HEMOGLOBIN 30.2 pg (25-34); MEAN CORPUSCULAR HGB CONC 34.7 g/dl (32-36); MEAN PLATELET VOLUME 12.2 fL (7.4-10.4); MONO % 7.7 %; PLATELET COUNT 30 K/uL (130-400); RED BLOOD COUNT 4.04 M/uL (4.7-6.1); WHITE BLOOD COUNT 3.63 K/uL (4.8-10.8)
[2016-12-21 07:26] LABS: BUN/CREATININE RATIO 18.2 (10-20); CALCIUM 8.1 mg/dl (8.5-10.1); CREATININE 3.5 mg/dl (0.60-1.40); MAGNESIUM 2.2 mg/dl (1.8-2.4)
[2016-12-21 07:52] LABS: CKMB/CK RATIO 0.3 (0-3.0)
[2016-12-21] MEDS: CHOLECALCIFEROL 1000 INTER.UNIT TAB PO SCH (08:37)
[2016-12-21] MEDS: DULOXETINE HCL 60 MG CAP PO SCH (08:37)
[2016-12-21] MEDS: PANTOprazole SOD 40 MG TAB PO SCH (08:37)
[2016-12-21] MEDS: CALCIUM 600MG + VIT D 400 IU TAB PO SCH ×2 (08:37→19:55)
[2016-12-21] MEDS: METOPROLOL SUCC 50MG EXT REL TAB PO SCH (08:37)
[2016-12-21] MEDS: GABAPENTIN 800 MG TAB PO SCH ×2 (08:38→12:56)
--- NOTE | 2016-12-21 09:58 | Family Medicine Progress Note ---
Progress Note Date of Service December 21, 2016. Subjective Pt evaluation today including: conversation w/ patient, physical exam, chart review, lab review Pain: denies pain PO Intake: good Voiding: no voiding problems 81-year-old male with past medical history of hypertension, BPH, asthma, GERD presented to the ER with complaints of fevers and chills started 3 days ago. He also noticed increased episodes of urinary incontinence and complained of fatigue and shortness of breath. He denied any chest pains, palpitations, dizziness, hematuria, bright red bleeding per rectum, melena. There was a concern of a left-sided facial droop and left leg weakness and he was evaluated for stroke with head CT, MRI brain, MRA brain without contrast on admission which were negative for any acute stroke. He denied any cough, rashes, dysuria, frequency, diarrhea or bowel incontinence. Denied abdominal pain, numbness or tingling . 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 Denied any recent tick bites. Constitutional: + chills, + fever Eyes: + problem reported (left eye vision defect sec to herpes ) ENT: + hearing loss Respiratory: + dyspnea on exertion, + shortness of breath, No cough, No sputum Cardiovascular: No chest pain Abdomen: No GI bleeding, No diarrhea, No nausea, No pain, No vomiting Musculoskeletal: No joint pain Male : + incontinence, No dysuria, No hematuria, No urinary frequency Neurologic: + problem reported (left leg weakness), No memory loss Psychiatric: No depression symptoms Heme: No abnormal bleeding/bruising Endo: No fatigue Medications Current Inpatient Medications Medications (Trade) Dose Ordered Sig/Sheree Route Start Time Stop Time Status Last Admin Dose Admin Sodium Chloride (Nss 1000ml) 1,000 ml @ 75 mls/hr [id number] IV 12/21/16 02:00 01/20/17 01:59 12/21/16 02:12 75 MLS/HR Acetaminophen (Tylenol Tab) 650 mg Q4H PRN PO 12/20/16 22:00 01/19/17 21:59 Nitroglycerin (Nitrostat Tab) 0.4 mg UD PRN SL 12/20/16 22:00 01/19/17 21:59 Alfuzosin HCl (Uroxatral Tab) 10 mg HS PO 12/21/16 21:00 01/20/17 20:59 Calcium/Vitamin D (Caltrate Plus Tab) 1 tab BID PO 12/21/16 09:00 01/20/17 08:59 12/21/16 08:37 1 TAB Cholecalciferol (Vitamin D Tab) 1,000 inter.unit DAILY PO 12/21/16 09:00 01/20/17 08:59 12/21/16 08:37 1,000 INTER.UNIT Duloxetine HCl (Cymbalta Cap) 60 mg DAILY PO 12/21/16 09:00 01/20/17 08:59 12/21/16 08:37 60 MG Gabapentin (Neurontin Tab) 800 mg TID PO 12/21/16 09:00 01/20/17 08:59 12/21/16 08:38 800 MG Levothyroxine Sodium (Synthroid Tab) 100 mcg DAILYBB PO 12/21/16 06:00 01/20/17 06:59 Metoprolol Succinate (Toprol Xl Tab) 50 mg DAILY PO 12/21/16 09:00 01/20/17 08:59 12/21/16 08:37 50 MG Polyethylene (Miralax Powder Packet) 17 gm HS PO 12/21/16 21:00 01/20/17 20:59 Ranitidine HCl (zANTac TAB) 150 mg HS PO 12/21/16 21:00 01/20/17 20:59 Simvastatin (Zocor Tab) 20 mg QPM PO 12/21/16 21:00 01/20/17 20:59 Loratadine (Claritin Tab) 10 mg QAM PRN PO 12/20/16 22:00 01/19/17 21:59 Miscellaneous Information (Order Awaiting Action) 1 ea QS N/A 12/21/16 00:00 01/20/17 00:00 Pantoprazole Sodium (Protonix Tab) 40 mg QAM PO 12/21/16 09:00 01/20/17 08:59 12/21/16 08:37 40 MG Miscellaneous Information (Order Awaiting Action) 1 ea QS N/A 12/21/16 00:00 01/20/17 00:00 Ondansetron HCl 4 mg 4 mg Q6H PRN IV 12/20/16 22:15 01/19/17 22:14 Piperacillin Sod/ Tazobactam Sod/ Dextrose (Zosyn Iv/D5 100ml) 115 ml @ 28.75 mls/ hr Q8H IV 12/21/16 04:00 12/31/16 03:59 12/21/16 04:09 28.75 MLS/HR Piperacillin Sod/ Tazobactam Sod (Consult) 1 ea UD PRN N/A 12/21/16 02:15 01/20/17 02:14 Objective Vital Signs Date Time Temp Pulse Resp B/P Pulse Ox O2 Delivery O2 Flow Rate FiO2 12/21/16 08:00 96 Nasal Cannula 2.0 12/21/16 07:31 38.0 101 16 130/67 96 2.0 12/21/16 04:00 92 Nasal Cannula 2.0 12/21/16 03:43 38.0 103 25 126/71 92 Nasal Cannula 2.0 12/21/16 03:42 38.0 103 25 126/71 92 Nasal Cannula 2.0 12/21/16 01:35 38.4 111 24 117/69 93 Nasal Cannula 2.0 12/21/16 01:35 38.4 111 24 117/69 93 Nasal Cannula 2.0 12/21/16 00:40 129 22 135/78 92 12/20/16 23:56 128 24 140/83 93 Nasal Cannula 2.0 12/20/16 22:00 124 22 117/86 92 Nasal Cannula 2.0 12/20/16 21:30 126 22 147/81 93 Nasal Cannula 2.0 12/20/16 20:29 119 22 158/79 94 Nasal Cannula 2.0 12/20/16 20:28 88 Room Air 12/20/16 19:51 118 16 154/73 93 Room Air 12/20/16 19:27 113 12/20/16 19:16 114 18 154/68 93 Room Air 12/20/16 19:15 93 Room Air 12/20/16 18:39 37.4 99 20 106/68 97 Room Air Physical Exam General Appearance: WD/WN, + mild distress, + pertinent finding (left facial droop) Eyes: normal inspection ENT: normal ENT inspection Neck: supple Respiratory/Chest: chest non-tender, lungs clear Cardiovascular: + tachycardia Abdomen: normal bowel sounds, non tender, soft Neurologic/Psychiatric: no motor/sensory deficits, alert, normal mood/affect, oriented x 3, + facial droop (left sided) Skin: normal color, warm/dry Laboratory Results 12/21/16 06:35 Red Blood Count 4.04, Mean Corpuscular Volume 87.1, Mean Corpuscular Hemoglobin 30.2, Mean Corpuscular Hemoglobin Concent 34.7, Mean Platelet Volume 12.2, Neutrophils (%) (Auto) 82.9, Lymphocytes (%) (Auto) 8.3, Monocytes (%) (Auto) 7.7, Eosinophils (%) (Auto) 0.0, Basophils (%) (Auto) 0.3, Neutrophils # (Auto) 3.01, Lymphocytes # (Auto) 0.30, Monocytes # (Auto) 0.28, Eosinophils # (Auto) 0.00, Basophils # (Auto) 0.01 12/21/16 06:35 Test 12/20/16 19:05 12/20/16 22:16 12/21/16 06:35 12/21/16 10:01 Platelet Estimate DECREASED Red Blood Cell Morphology Unremarkable Globulin 4.1 gm/dl (2.5-4.0) Albumin/Globulin Ratio 0.9 (0.9-2) Triglycerides Level 164 mg/dl (0-150) Cholesterol Level 103 mg/dl (0-200) HDL Cholesterol 12 mg/dl LDL Cholesterol, Calculated 58 mg/dl VLDL Cholesterol, Calculated 33 mg/dl Cholesterol/HDL Ratio 8.6 White Blood Count 3.63 K/uL (4.8-10.8) Red Blood Count 4.04 M/uL (4.7-6.1) Hemoglobin 12.2 g/dL (14.0-18.0) Hematocrit 35.2 % (42-52) Mean Corpuscular Volume 87.1 fL (80-100) Mean Corpuscular Hemoglobin 30.2 pg (25-34) Mean Corpuscular Hemoglobin Concent 34.7 g/dl (32-36) Platelet Count 30 K/uL (130-400) Mean Platelet Volume 12.2 fL (7.4-10.4) Neutrophils (%) (Auto) 82.9 % Lymphocytes (%) (Auto) 8.3 % Monocytes (%) (Auto) 7.7 % Eosinophils (%) (Auto) 0.0 % Basophils (%) (Auto) 0.3 % Neutrophils # (Auto) 3.01 K/uL (1.4-6.5) Lymphocytes # (Auto) 0.30 K/uL (1.2-3.4) Monocytes # (Auto) 0.28 K/uL (0.11-0.59) Eosinophils # (Auto) 0.00 K/uL (0-0.5) Basophils # (Auto) 0.01 K/uL (0-0.2) RDW Standard Deviation 45.6 fL (36.4-46.3) RDW Coefficient of Variation 14.2 % (11.5-14.5) Immature Granulocyte % (Auto) 0.8 % Immature Granulocyte # (Auto) 0.03 K/uL (0.00-0.02) Prothrombin Time 12.1 SECONDS (9.0-12.0) Prothromb Time International Ratio 1.1 (0.9-1.1) Activated Partial Thromboplast Time 34.9 SECONDS (21.0-31.0) Partial Thromboplastin Ratio 1.3 Anion Gap 11.0 mmol/L (3-11) Est Creatinine Clear Calc Drug Dose 19.2 ml/min Estimated GFR () 18.2 Estimated GFR (Non- 15.7 BUN/Creatinine Ratio 18.2 (10-20) Calcium Level 8.1 mg/dl (8.5-10.1) Magnesium Level 2.2 mg/dl (1.8-2.4) Total Creatine Kinase 1439 U/L (39-308) Creatine Kinase MB 3.7 ng/ml (0.5-3.6) Creatine Kinase MB Ratio 0.3 (0-3.0) Troponin I 17.000 ng/ml (0-0.045) Test 12/21/16 10:02 12/21/16 10:04 12/21/16 10:05 Assessment and Plan 81-year-old male with past medical history of hypertension, BPH, asthma, GERD presented to the ER with complaints of fevers and chills started 3 days ago. He also noticed increased episodes of urinary incontinence and complained of fatigue and shortness of breath. He had been febrile overnight with tachycardia. Also had developed increased work of breathing over the day. He was evaluated for a potential TTP, consumptive coagulopathy , atypical HUS. Peripheral smear was obtained which revealed inclusion bodies consistent with ehrlichia Febrile with leukopenia and thrombocytopenia : - UA/UC pending - Blood culture pending( but had received Zosyn) - Peripheral smear revealed ehrlichia Ehrlichiosis: - Peripheral smear: Inclusion bodies consistent with ehrlichia - Started on 100 mg doxycycline twice a day - Lyme serology negative - Infectious diseases consult- appreciate recommendations - Ehrlichia abs , anaplasmosis abs pending Elevated troponins: - EKG on presentation: Sinus tachycardia Possible Left atrial enlargement Nonspecific ST and T wave abnormality Abnormal ECG When compared with ECG of Aug-2015 06:39, T wave inversion no longer evident in Anterolateral leads - Initial troponin 13-->14.2--> 17 - Echo ordered with concerns of bacterial endocarditis and for wall motion abnormalities: 12/21: * The left ventricle is hyperdynamic. * No obvious wall motion abnormality. * Ejection Fraction = >70 %. * There is mild concentric left ventricular hypertrophy. * Grade I diastolic dysfunction, (abnormal relaxation pattern). * No significant valvular pathology -Cardiology consult- appreciate recommendations -No cardiac cath planned for now considering elevated creatinine - Trended daily troponin SHAMIR: - Creatinine on presentation at 3, today 3.5 Baseline 1 - IV fluids were running at 75 mL /hr but were discontinued later in the afternoon due to concerns of fluid overload - Nephrology consult- appreciate recommendations Thrombocytopenia: - Platelets on presentation 47-->30-->24 - No active bleeding - Hematology consult- appreciate recommendations - Transfusion if drops less than 20 - Elevated AST Left sided facial droop: - Was worked up for stroke with head CT, MRI which were unremarkable - Carotid ultrasound revealed right external carotid stenosis 50-69% -Aspirin held due to low platelets - ? bells palsy. Tachycardia: - Likely secondary to fever -Monitor in telemetry Hypertension: - Losartan and hydrochlorothiazide currently held due to concerns of elevated creatinine Hypothyroidism: Continue Synthroid Peripheral neuropathy: - Gabapentin dosage decreased due to lethargy GERD: - Continue home meds COPD -Continue nebs as needed BPH: - Continue finasteride, alfuzosin Depression - continue Cymbalta DVT prophylaxis: SCDs Full code Disposition: Monitor in telemetry Continued [facility] stay due to: fever, multiple IV medications needed Discharge planning: home Resident Tracking Resident Involvement: Resident Care Provided Care Provided: Adult Hospital Medicine Reviewed: Pt Seen/Exam by Me History multiple visit throughout the day. seemed lethargic at times but easily arousable and alert. Constitutional: acknowledges: fever Respiratory: negative: short of breath Cardiovascular: denies chest pain Gastrointestinal/Abdominal: negative: abdominal pain General Appearance: no apparent distress Respiratory: lungs clear, no respiratory distress Cardiovascular: regular rate, rhythm Gastrointestinal: normal bowel sounds, non tender, soft Neurologic/Psychiatric: oriented x 3, other (somnolent - easily arousable) Skin Characteristics: warm/dry Assessment/Plan I have reviewed the medical record and performed a history and physical examination of this patient today. I have discussed the case with Dr. Justin. The above note reflects my findings, conclusions, and recommendations.
--- NOTE | 2016-12-21 11:38 | DIAGNOSTIC IMAGING REPORT ---
CHEST ONE VIEW PORTABLE CLINICAL HISTORY: Stroke like symptoms COMPARISON STUDY: 12/20/2016 FINDINGS: The heart is mildly enlarged. There is mild elevation of the interstitium suggesting mild pulmonary vascular congestion/fluid overload. There is a hiatal hernia. Trace pleural effusions are suspected. There is no lobar consolidation.[ IMPRESSION: 1. Cardiomegaly and suspected mild vascular congestion/fluid overload 2. Trace pleural effusions 3. Hiatal hernia 4. No evidence of focal pulmonary consolidation Electronically signed by: Theodore Garcia M.D. 12/21/2016 11:37 AM Dictated Date/Time: 12/21/2016 11:36 AM
[2016-12-21 11:41] LABS: NEUT % 82.9 %
[2016-12-21 12:08] LABS: FIBRINOGEN* 597 mg/dl (184-400)
[2016-12-21 12:18] LABS: URINE APPEARANCE TURBID (CLEAR); URINE BILIRUBIN NEG (NEG); URINE COLOR DK YELLOW; URINE EPITHELIAL CELL AUTO >30 /lpf (0-5); URINE NITRITE NEG (NEG); URINE SPECIFIC GRAVITY 1.018 (1.000-1.030); UROBILINOGEN NEG (NEG); ZZURINE CULT IF INDIC CATH YES
[2016-12-21 12:26] LABS: MANUAL MICROSCOPIC REQUIRED? NO; REVIEW REQ? YES
[2016-12-21 12:50] LABS: URINE PATH CASTS 0-3 GRANULAR CASTS /lpf (0)
[2016-12-21 13:04] LABS: LYME DISEASE AB IGG NEG (NEG)
[2016-12-21 13:07] LABS: LYME DISEASE AB IGM NEG (NEG)
[2016-12-21 13:20] LABS: PLATELET COUNT 24 K/uL (130-400)
[2016-12-21 14:09] LABS: ARTERIAL BLD GAS O2 SATURATION 94.3 % (90-95); ARTERIAL BLOOD GAS BASE EXCESS -1.2 mEq/L (-9-1.8); ARTERIAL BLOOD GAS HCO3 22 mmol/L (19-24); ARTERIAL BLOOD GAS PO2 72 mm/Hg (80-95); ARTERIAL BLOOD GAS pH 7.48 (7.35-7.45)
[2016-12-21 14:24] LABS: ALLEN TEST POS (POS); O2 ADMINISTRATION 4L
[2016-12-21 14:37] LABS: CKMB/CK RATIO 0.3 (0-3.0)
--- NOTE | 2016-12-21 14:38 | Oncology Consultation ---
Oncology/Heme Consultation Date of Consultation: December 21, 2016. Attending Physician: Alisa Aguilar M.D. Reason for Consultation: Thrombocytopenia History of Present Illness Mr. Gill 81-year-old gentleman that was admitted with fever and confusion. His baseline blood work shows and to be thrombocytopenic. His been no overt bleeding. He reviews with me that he has had incontinence for the past for 5 days and then developed a fever. He denies diarrhea or shortness of breath or chest pain or abdominal pain. He states he has a cough but it's been nonproductive Past Medical/Surgical History Medical Problems: (1) Dyspnea on exertion Status: Acute (2) Elevated troponin Status: Acute (3) Left shoulder pain Status: Acute (4) Stroke-like symptoms Status: Acute Family History Patient reports no known family medical history. He states his sister may have had breast cancer or some sort of cancer type unknown Social History Negative for significant smoking or alcohol usage. Smoking Status: Never Smoker Smokeless Tobacco Use: No Alcohol Use: none Drug Use: none Housing Status: lives with significant other Occupation Status: retired Allergies Coded Allergies: Erythromycin (Verified Allergy, Intermediate, THROAT BEGAN TO SWELL SHUT, 09/04/15) PT Lisinopril (Verified Adverse Reaction, Intermediate, COUGH, 09/04/15) Atorvastatin (Verified Adverse Reaction, Unknown, MYALGIAS, 09/04/15) PT/ALLSCRIPTS Home Medications Scheduled Alfuzosin HCl (Uroxatral), 10 MG PO HS Aspirin (Aspirin Ec), 325 MG PO DAILY Calcium Carbonate-Vitamin D W/ (Caltrate 600 Plus), 1 TAB PO BID Cholecalciferol (Vitamin D 1000 Unit), 1,000 INTER.UNIT PO DAILY Duloxetine HCl (Duloxetine HCl), 60 MG PO DAILY Dutasteride (Dutasteride), 0.5 MG PO DAILY Gabapentin (Gabapentin), 800 MG PO TID Hydrochlorothiazide (Hctz), 12.5 MG PO DAILY Levothyroxine Sodium (Levothyroxine Sodium), 100 MCG PO DAILY Losartan Potassium (Cozaar), 100 MG PO DAILY Metoprolol Succinate (Metoprolol Succinate ER), 50 MG PO DAILY Mometasone Furoate-Formoterol (Dulera 100/5 Mcg), 2 PUFFS INH Q12 Omeprazole (Prilosec), 40 MG PO DAILY Polyethylene Glycol 3350 (Miralax), 1 TBS PO HS Ranitidine (Zantac), 150 MG PO HS Simvastatin (Zocor), 20 MG PO QPM Tadalafil (Cialis), 5 MG PO DAILY Trospium Chloride (Trospium Chloride Er), 60 MG PO DAILY Scheduled PRN Albuterol Hfa (Ventolin Hfa), 2 PUFF INH Q4 PRN for Shortness of Breath Capsaicin (Zostrix Arthritis Pain Re), 1 APPLN TOP QID PRN for Pain Desloratadine (Clarinex), 5 MG PO DAILY PRN for ALLERGIES Current Inpatient Medications Current Inpatient Medications Medications (Trade) Dose Ordered Sig/Sheree Route Start Time Stop Time Status Last Admin Dose Admin Sodium Chloride (Nss 1000ml) 1,000 ml @ 75 mls/hr [id number] IV 12/21/16 02:00 01/20/17 01:59 12/21/16 02:12 75 MLS/HR Acetaminophen (Tylenol Tab) 650 mg Q4H PRN PO 12/20/16 22:00 01/19/17 21:59 Nitroglycerin (Nitrostat Tab) 0.4 mg UD PRN SL 12/20/16 22:00 01/19/17 21:59 Alfuzosin HCl (Uroxatral Tab) 10 mg HS PO 12/21/16 21:00 01/20/17 20:59 Calcium/Vitamin D (Caltrate Plus Tab) 1 tab BID PO 12/21/16 09:00 01/20/17 08:59 12/21/16 08:37 1 TAB Cholecalciferol (Vitamin D Tab) 1,000 inter.unit DAILY PO 12/21/16 09:00 01/20/17 08:59 12/21/16 08:37 1,000 INTER.UNIT Duloxetine HCl (Cymbalta Cap) 60 mg DAILY PO 12/21/16 09:00 01/20/17 08:59 12/21/16 08:37 60 MG Gabapentin (Neurontin Tab) 800 mg TID PO 12/21/16 09:00 01/20/17 08:59 12/21/16 12:56 800 MG Levothyroxine Sodium (Synthroid Tab) 100 mcg DAILYBB PO 12/21/16 06:00 01/20/17 06:59 Metoprolol Succinate (Toprol Xl Tab) 50 mg DAILY PO 12/21/16 09:00 01/20/17 08:59 12/21/16 08:37 50 MG Polyethylene (Miralax Powder Packet) 17 gm HS PO 12/21/16 21:00 01/20/17 20:59 Ranitidine HCl (zANTac TAB) 150 mg HS PO 12/21/16 21:00 01/20/17 20:59 Simvastatin (Zocor Tab) 20 mg QPM PO 12/21/16 21:00 01/20/17 20:59 Loratadine (Claritin Tab) 10 mg QAM PRN PO 12/20/16 22:00 01/19/17 21:59 Miscellaneous Information (Order Awaiting Action) 1 ea QS N/A 12/21/16 00:00 01/20/17 00:00 Pantoprazole Sodium (Protonix Tab) 40 mg QAM PO 12/21/16 09:00 01/20/17 08:59 12/21/16 08:37 40 MG Miscellaneous Information (Order Awaiting Action) 1 ea QS N/A 12/21/16 00:00 01/20/17 00:00 Ondansetron HCl 4 mg 4 mg Q6H PRN IV 12/20/16 22:15 01/19/17 22:14 Piperacillin Sod/ Tazobactam Sod/ Dextrose (Zosyn Iv/D5 100ml) 115 ml @ 28.75 mls/ hr Q8H IV 12/21/16 04:00 12/31/16 03:59 12/21/16 11:35 28.75 MLS/HR Piperacillin Sod/ Tazobactam Sod (Consult) 1 ea UD PRN N/A 12/21/16 02:15 01/20/17 02:14 Review of Systems Constitutional: Negative for weight loss, Negative for or night sweats. Has had fever Eyes: Negative for event change of vision ENT: Negative for epistaxis, nasal discharge, sore throat, or deafness Cardiovascular: Negative for chest pain, palpitations, dizziness, diaphoresis Respiratory: Negative for new shortness of breath,hemoptysis, or purulent cough Gastrointestinal: Negative for diarrhea, hematemesis, melena, nausea, vomiting , or dyspepsia Integumentary (skin): Negative for rash or jaundice discoloration Genitourinary: He states he's been incontinent for the past for 5 days Neurological: Negative for weakness, seizure activity, headache, or dizziness Lymphatic/Hematologic: Negative for petechiae, bleeding or new adenopathy Musculoskeletal: Negative for new joint or back pain Allergic/Immunologic: Negative for unusual rash or pruritis. Physical Exam Date Time Temp Pulse Resp B/P Pulse Ox O2 Delivery O2 Flow Rate FiO2 12/21/16 12:00 96 Nasal Cannula 2.0 12/21/16 11:00 37.7 105 16 157/75 95 2.0 12/21/16 08:00 96 Nasal Cannula 2.0 12/21/16 07:31 38.0 101 16 130/67 96 2.0 12/21/16 04:00 92 Nasal Cannula 2.0 12/21/16 03:43 38.0 103 25 126/71 92 Nasal Cannula 2.0 12/21/16 03:42 38.0 103 25 126/71 92 Nasal Cannula 2.0 12/21/16 01:35 38.4 111 24 117/69 93 Nasal Cannula 2.0 12/21/16 01:35 38.4 111 24 117/69 93 Nasal Cannula 2.0 12/21/16 00:40 129 22 135/78 92 12/20/16 23:56 128 24 140/83 93 Nasal Cannula 2.0 12/20/16 22:00 124 22 117/86 92 Nasal Cannula 2.0 12/20/16 21:30 126 22 147/81 93 Nasal Cannula 2.0 12/20/16 20:29 119 22 158/79 94 Nasal Cannula 2.0 12/20/16 20:28 88 Room Air 12/20/16 19:51 118 16 154/73 93 Room Air 12/20/16 19:27 113 12/20/16 19:16 114 18 154/68 93 Room Air 12/20/16 19:15 93 Room Air 12/20/16 18:39 37.4 99 20 106/68 97 Room Air Constitutional: vitals are stable. He responded slowly but is oriented 2-3 Eyes: Eyes are BRANDON EOMI without conjuctival erythema or icterus. ENT: External examination was negative for masses. Neck: Negative for masses or palpable thyromegaly Respiratory: Lung sounds were generally clear bilaterally Cardiovascular: Heart was RRR without significant murmur, gallops aoe rubs Gastrointestinal: No palpable hepatic or splenomegaly. The abdomen was soft with normal bowel sounds. He is obese Lymphatic system: there was no palpable peripheral lymphadenopathy Musculoskeletal System: The musculoskeletal system seemed concordant with age. Skin: The skin was negative for jaundice. Neurologic exam: he may have a central seventh on the left. It is somewhat subtle Psychiatric exam: Was essentially negative with normal mood and effect. Extremities: Negative for edema erythema Laboratory Results Last 24 Hours Test 12/20/16 19:05 12/20/16 22:16 12/21/16 06:35 12/21/16 11:20 White Blood Count 5.24 K/uL 3.63 K/uL Red Blood Count 4.77 M/uL 4.04 M/uL Hemoglobin 14.7 g/dL 12.2 g/dL Hematocrit 42.1 % 35.2 % Mean Corpuscular Volume 88.3 fL 87.1 fL Mean Corpuscular Hemoglobin 30.8 pg 30.2 pg Mean Corpuscular Hemoglobin Concent 34.9 g/dl 34.7 g/dl Platelet Count 47 K/uL 30 K/uL 24 K/uL Mean Platelet Volume 11.1 fL 12.2 fL Neutrophils (%) (Auto) 83.2 % 82.9 % Lymphocytes (%) (Auto) 7.8 % 8.3 % Monocytes (%) (Auto) 7.3 % 7.7 % Eosinophils (%) (Auto) 0.2 % 0.0 % Basophils (%) (Auto) 0.4 % 0.3 % Neutrophils # (Auto) 4.36 K/uL 3.01 K/uL Lymphocytes # (Auto) 0.41 K/uL 0.30 K/uL Monocytes # (Auto) 0.38 K/uL 0.28 K/uL Eosinophils # (Auto) 0.01 K/uL 0.00 K/uL Basophils # (Auto) 0.02 K/uL 0.01 K/uL RDW Standard Deviation 45.8 fL 45.6 fL RDW Coefficient of Variation 14.1 % 14.2 % Immature Granulocyte % (Auto) 1.1 % 0.8 % Immature Granulocyte # (Auto) 0.06 K/uL 0.03 K/uL Blood Smear Review Platelet Estimate DECREASED Red Blood Cell Morphology Unremarkable Prothrombin Time 11.3 SECONDS 12.1 SECONDS Prothromb Time International Ratio 1.1 1.1 Activated Partial Thromboplast Time 30.6 SECONDS 34.9 SECONDS Partial Thromboplastin Ratio 1.2 1.3 Sodium Level 139 mmol/L 138 mmol/L Potassium Level 3.7 mmol/L 4.0 mmol/L Chloride Level 102 mmol/L 105 mmol/L Carbon Dioxide Level 25 mmol/L 22 mmol/L Anion Gap 12.0 mmol/L 11.0 mmol/L Blood Urea Nitrogen 51 mg/dl 64 mg/dl Creatinine 3.00 mg/dl 3.50 mg/dl Est Creatinine Clear Calc Drug Dose 22.6 ml/min 19.2 ml/min Estimated GFR () 21.9 18.2 Estimated GFR (Non- 18.9 15.7 BUN/Creatinine Ratio 17.0 18.2 Random Glucose 119 mg/dl 119 mg/dl Calcium Level 9.0 mg/dl 8.1 mg/dl Total Bilirubin 1.9 mg/dl 1.5 mg/dl Aspartate Amino Transf (AST/SGOT) 147 U/L 203 U/L Alanine Aminotransferase (ALT/SGPT) 66 U/L 75 U/L Alkaline Phosphatase 79 U/L 57 U/L Troponin I 13.000 ng/ml 14.200 ng/ml 17.000 ng/ml Total Protein 7.8 gm/dl 6.4 gm/dl Albumin 3.7 gm/dl 2.8 gm/dl Globulin 4.1 gm/dl Albumin/Globulin Ratio 0.9 Total Creatine Kinase 1796 U/L 1439 U/L Creatine Kinase MB 6.0 ng/ml 3.7 ng/ml Creatine Kinase MB Ratio 0.3 0.3 Triglycerides Level 164 mg/dl Cholesterol Level 103 mg/dl HDL Cholesterol 12 mg/dl LDL Cholesterol, Calculated 58 mg/dl VLDL Cholesterol, Calculated 33 mg/dl Cholesterol/HDL Ratio 8.6 Magnesium Level 2.2 mg/dl Fibrinogen 597 mg/dl Fibrin Degradation Products >40 mcg/ml Lactic Acid Level 1.9 mmol/L Direct Bilirubin 0.7 mg/dl Lyme Disease IgG Antibody NEG Lyme Disease IgM Antibody NEG Test 12/21/16 12:05 12/21/16 13:55 12/21/16 14:20 Urine Color DK YELLOW Urine Appearance TURBID Urine pH 5.0 Urine Specific Lacey 1.018 Urine Protein 2+ Urine Glucose (UA) NEG Urine Ketones NEG Urine Occult Blood 3+ Urine Nitrite NEG Urine Bilirubin NEG Urine Urobilinogen NEG Urine Leukocyte Esterase NEG Urine WBC (Auto) 10-30 /hpf Urine RBC (Auto) 5-10 /hpf Urine Hyaline Casts (Auto) 1-5 /lpf Urine Epithelial Cells (Auto) >30 /lpf Urine Bacteria (Auto) NEG Urine Renal Epithelial Cells /lpf Urine Crystals See comments Urine Pathogenic Casts 0-3 GRANULAR CASTS /lpf Urine Yeast (Auto) Arterial Blood pH 7.48 Arterial Blood Partial Pressure CO2 30 mmHg Arterial Blood Partial Pressure O2 72 mm/Hg Arterial Blood HCO3 22 mmol/L Arterial Blood Oxygen Saturation 94.3 % Arterial Blood Base Excess -1.2 mEq/L Arterial Blood Gas Delivery 4L Te Test POS Lactic Acid Level 1.3 mmol/L Ammonia 15.0 umol/L Creatine Kinase MB Ratio Assessment & Plan Josh thrombocytopenia with mildly prolonged PT PTT. Fibrinogen level is normal. Review his peripheral smear shows the red cells to be rather banal appearing. No definite helmet cell membrane changes. White cells are the most remarkable with inclusion bodies consistent with possible /probable Erlichiosis. 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 Nephrology will need to be involved for the ongoing renal failure. In regards to the coagulopathy and would only transfuse platelets if in fact nature below 20,000 or overt bleeding occurs.. We'll follow with you
--- NOTE | 2016-12-21 14:40 | ECHOCARDIOGRAM REPORT ---
*NOTICE TO RECEIVING DEMOCRAT AGENCY This information is strictly Confidential and protected under [place] law. [place] law prohibits you from making any further disclosure of this information unless further disclosure is expressly permitted by the written consent of the person to whom it pertains or is authorized by law. A general authorization for the release of medical or other information is not sufficient for this purpose. Hospital accepts no responsibility if the information is made available to any other person, INCLUDING THE PATIENT. Interpretation Summary * Name: CHARLEY BROWN Study Date: 12/21/2016 10:28 AM BP: 157/75 mmHg * Patient Location: C.2T\S\S240\S\1 HR: 100 * : 1935 (M/d/yyyy) Gender: Male Height: 68 in * Age: 81 yrs Ethnicity: CA Weight: 210 lb * Ordering Physician: Alisa Aguilar * Referring Physician: Self, Referred * Performed By: Elida Hoffman RDCS * * Reason For Study: NSTEMI * BSA: 2.1 m2 * -- Conclusions -- * The left ventricle is hyperdynamic. * No obvious wall motion abnormality. * Ejection Fraction = >70 %. * There is mild concentric left ventricular hypertrophy. * Grade I diastolic dysfunction, (abnormal relaxation pattern). * No significant valvular pathology, Procedure Details * A contrast injection of Definity was performed to improve assessment of LV function. * Contrast was injected into an intravenous site in the left arm. * One vial of Definity ultrasound contrast was diluted in normal saline to a total volume of 10 ml. A total of '2' ml of solution was administered during imaging. * Lot # [id number] of Definity utilized for procedure. * Expiration date DEC 07. * The attending nurse who injected the contrast agent was DARCI VILLARREAL RN. Left Ventricle * The left ventricle is normal in size. * There is mild concentric left ventricular hypertrophy. * Ejection Fraction = >70 %. * The left ventricle is hyperdynamic. * No obvious wall motion abnormality. Right Ventricle * The right ventricle is not well visualized. * The right ventricular systolic function is normal as assessed by tricuspid annular plane systolic excursion (TAPSE) (normal >1.5 cm). Atria * The left atrial size is normal. * Right atrium not well visualized. * No ASD detected; PFO is not assessed. Mitral Valve * The mitral valve is grossly normal. * There is no mitral valve stenosis. * Significant mitral regurgitation is absent. Tricuspid Valve * The tricuspid valve is not well visualized, but is grossly normal. * There is no tricuspid stenosis. * Significant tricuspid regurgitation is absent. Aortic Valve * The aortic valve is not well visualized. * The aortic valve opens well. * No hemodynamically significant valvular aortic stenosis. * There is no significant aortic regurgitation. Pulmonic Valve * The pulmonic valve is not well visualized. Great Vessels * The aortic root is normal size. Pericardium/Pleural * There is no pericardial effusion. Great Vessels * Normal inferior vena cava size and collapsability with sniff indicates a normal right atrial pressure of 3 mmHg Left Ventricular Diastolic Function * Grade I diastolic dysfunction, (abnormal relaxation pattern). MMode 2D Measurements and Calculations Ao root diam 3.2 cm Ao root area 7.9 cm\S\2 LA dimension 4.4 cm LA/Ao 1.4 LVAd ap4 31.9 cm\S\2 LVLd ap4 8.6 cm EDV(MOD-sp4) 96.9 ml EDV(sp4-el) 100.8 ml LVAs ap4 20.0 cm\S\2 LVLs ap4 9.1 cm ESV(MOD-sp4) 34.9 ml ESV(sp4-el) 37.3 ml EF(MOD-sp4) 64.0 % EF(sp4-el) 63.0 % LVAd ap2 28.6 cm\S\2 LVLd ap2 8.4 cm EDV(MOD-sp2) 79.5 ml EDV(sp2-el) 82.8 ml LVAs ap2 18.4 cm\S\2 LVLs ap2 8.3 cm ESV(MOD-sp2) 34.8 ml ESV(sp2-el) 34.7 ml EF(MOD-sp2) 56.2 % EF(sp2-el) 58.1 % LVLd %diff -2.66 % EDV(MOD-bp) 88.6 ml LVLs %diff -9.74 % ESV(MOD-bp) 35.8 ml EF(MOD-bp) 59.6 % SV(MOD-sp4) 62.0 ml SI(MOD-sp4) 29.7 ml/m\S\2 SV(MOD-sp2) 44.7 ml SI(MOD-sp2) 21.4 ml/m\S\2 SV(MOD-bp) 52.9 ml SI(MOD-bp) 25.3 ml/m\S\2 SV(sp4-el) 63.6 ml SI(sp4-el) 30.5 ml/m\S\2 SV(sp2-el) 48.1 ml SI(sp2-el) 23.0 ml/m\S\2 Doppler Measurements and Calculations MV E max dionisio 68.4 cm/sec MV A max dionisio 88.8 cm/sec MV E/A 0.77 MV dec time 0.25 sec Ao V2 max 174.8 cm/sec Ao max PG 12.2 mmHg Ao max PG (full) 5.4 mmHg LV V1 max PG 6.8 mmHg LV V1 max 130.4 cm/sec
--- NOTE | 2016-12-21 15:39 | Progress Note ---
Progress Note Date of Service December 21, 2016. Progress Note ID Consult Dictated #[id number] A/P: 1. Ehrlichiosis 2. Fever 3. leukopenia/thrombocytopenia -Started on doxy, continue this -Check serologies as well -Will follow, blood cultures pending, likely can stop zosyn -will follow, thank you
[2016-12-21] MEDS: AVODART~ORDER AWAITING ACTION SCH ×4 (16:00→23:58)
[2016-12-21] MEDS: DOXYCYCLINE IV 100 MG in DEXTROSE 5% 100ML 100 ML IV SCH (16:09)
--- NOTE | 2016-12-21 16:45 | Cardiology Consultation ---
Cardiology Consultation Date of Consultation: December 21, 2016. Requesting Physician: Dr. Guerrier Reason for Consultation: Elevated cardiac enzymes Pt evaluation today including: conversation w/ patient, physical exam, lab review, review of studies, review of inpatient medication list, conversation w/ attending History of Present Illness This is a very pleasant 81-year-old gentleman whom I have known for many years but not as a patient. 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 That evening he was at dinner and he became extremely cold and had shaking chills and had to put on a sweater. He then had episodes of urinary incontinence, developed fatigue and continued to have chills. He was not having shortness of breath, he was having more difficulty with ambulation and his son also noted that his left facial droop appeared to be worse over the last several days before admission. He therefore presented to the emergency room on 12/20/2016. In the emergency room he was noted to have an elevated troponin, elevated creatinine, thrombocytopenia and a normal white blood cell count. He denies having chest discomfort or significant shortness of breath at the time and did not have evidence of congestive heart failure. He was started on antibiotics at that time. At the time of my evaluation he is feeling about the same, he is still not complaining of any type of chest discomfort and no significant shortness of breath. He was able to describe the events noted above to me. 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 Social History Smoking Status: Never Smoker History of Alcohol Use: Yes (6 beers per week) Review of Systems Constitutional: No fever, No weakness, No weight loss Respiratory: + dyspnea on exertion, + shortness of breath, No cough, No sputum Cardiac: + see HPI, No chest pain, No edema, No palpitations Abdomen: No GI bleeding, No diarrhea, No nausea, No pain, No vomiting Male : No nocturia more than once/night, No sexual dysfunction, No slowing stream, No urinary frequency Neurologic: + balance problems, + problem reported (difficulty ambulating for several days), No numbness/tingling, No paralysis, No weakness Heme: No abnormal bleeding/bruising, No clotting problems Endo: No fatigue Skin: No problem reported All Other Systems: Reviewed and Negative Allergies Coded Allergies: Erythromycin (Verified Allergy, Intermediate, THROAT BEGAN TO SWELL SHUT, 09/04/15) PT Lisinopril (Verified Adverse Reaction, Intermediate, COUGH, 09/04/15) Atorvastatin (Verified Adverse Reaction, Unknown, MYALGIAS, 09/04/15) PT/ALLSCRIPTS Medications Current Inpatient Medications Medications (Trade) Dose Ordered Sig/Sheree Route Start Time Stop Time Status Last Admin Dose Admin Sodium Chloride (Nss 1000ml) 1,000 ml @ 75 mls/hr [id number] IV 12/21/16 02:00 01/20/17 01:59 12/21/16 16:10 75 MLS/HR Acetaminophen (Tylenol Tab) 650 mg Q4H PRN PO 12/20/16 22:00 01/19/17 21:59 Nitroglycerin (Nitrostat Tab) 0.4 mg UD PRN SL 12/20/16 22:00 01/19/17 21:59 Alfuzosin HCl (Uroxatral Tab) 10 mg HS PO 12/21/16 21:00 01/20/17 20:59 Calcium/Vitamin D (Caltrate Plus Tab) 1 tab BID PO 12/21/16 09:00 01/20/17 08:59 12/21/16 08:37 1 TAB Cholecalciferol (Vitamin D Tab) 1,000 inter.unit DAILY PO 12/21/16 09:00 01/20/17 08:59 12/21/16 08:37 1,000 INTER.UNIT Duloxetine HCl (Cymbalta Cap) 60 mg DAILY PO 12/21/16 09:00 01/20/17 08:59 12/21/16 08:37 60 MG Gabapentin (Neurontin Tab) 800 mg TID PO 12/21/16 09:00 01/20/17 08:59 12/21/16 12:56 800 MG Levothyroxine Sodium (Synthroid Tab) 100 mcg DAILYBB PO 12/21/16 06:00 01/20/17 06:59 Metoprolol Succinate (Toprol Xl Tab) 50 mg DAILY PO 12/21/16 09:00 01/20/17 08:59 12/21/16 08:37 50 MG Polyethylene (Miralax Powder Packet) 17 gm HS PO 12/21/16 21:00 01/20/17 20:59 Ranitidine HCl (zANTac TAB) 150 mg HS PO 12/21/16 21:00 01/20/17 20:59 Simvastatin (Zocor Tab) 20 mg QPM PO 12/21/16 21:00 01/20/17 20:59 Loratadine (Claritin Tab) 10 mg QAM PRN PO 12/20/16 22:00 01/19/17 21:59 Miscellaneous Information (Order Awaiting Action) 1 ea QS N/A 12/21/16 00:00 01/20/17 00:00 Pantoprazole Sodium (Protonix Tab) 40 mg QAM PO 12/21/16 09:00 01/20/17 08:59 12/21/16 08:37 40 MG Miscellaneous Information (Order Awaiting Action) 1 ea QS N/A 12/21/16 00:00 01/20/17 00:00 Ondansetron HCl 4 mg 4 mg Q6H PRN IV 12/20/16 22:15 01/19/17 22:14 Piperacillin Sod/ Tazobactam Sod/ Dextrose (Zosyn Iv/D5 100ml) 115 ml @ 28.75 mls/ hr Q8H IV 12/21/16 04:00 12/31/16 03:59 12/21/16 11:35 28.75 MLS/HR Piperacillin Sod/ Tazobactam Sod 1 ea 1 ea UD PRN N/A 12/21/16 02:15 01/20/17 02:14 Doxycycline Hyclate/Dextrose (Vibramycin IV/ D5 100ml) 110 ml @ 50 mls/hr Q12H IV 12/21/16 15:30 12/31/16 15:29 12/21/16 16:09 50 MLS/HR Physical Exam Vital Signs Past 12 Hours Date Time Temp Pulse Resp B/P Pulse Ox O2 Delivery O2 Flow Rate FiO2 12/21/16 15:20 37.0 103 20 135/83 93 Nasal Cannula 4.0 12/21/16 12:00 96 Nasal Cannula 2.0 12/21/16 11:00 37.7 105 16 157/75 95 2.0 12/21/16 08:00 96 Nasal Cannula 2.0 12/21/16 07:31 38.0 101 16 130/67 96 2.0 Constitutional: General Apperance: heathly-appearing Level of Distress: NAD Psychiatric: Mental Status: active & alert Head: normocephalic Eyes: EOM: EOMI ENMT: normal ENT inspection, hearing grossly normal Neck: supple, no masses Lungs: Respiratory effort: no dyspnea, good air movement Auscultation: breath sounds normal, no wheezing Cardiovascular: Heart Auscultation: RRR, no murmurs, no rubs, no gallops Peripheral Pulses: Bruits: none appreciated Abdomen: Bowel Sounds: normal Inspection & Palpation: soft, no tenderness, guarding & rebound, no masses Musculoskeletal: normal strength (5/5 throughout) Extremities: no edema Neurologic: Gait & Station: pertinent finding (left facial droop present including left eyelid) Data Laboratory Results: Last 24 Hours Test 12/20/16 19:05 12/20/16 22:16 12/21/16 06:35 12/21/16 11:20 White Blood Count 5.24 K/uL 3.63 K/uL Red Blood Count 4.77 M/uL 4.04 M/uL Hemoglobin 14.7 g/dL 12.2 g/dL Hematocrit 42.1 % 35.2 % Mean Corpuscular Volume 88.3 fL 87.1 fL Mean Corpuscular Hemoglobin 30.8 pg 30.2 pg Mean Corpuscular Hemoglobin Concent 34.9 g/dl 34.7 g/dl Platelet Count 47 K/uL 30 K/uL 24 K/uL Mean Platelet Volume 11.1 fL 12.2 fL Neutrophils (%) (Auto) 83.2 % 82.9 % Lymphocytes (%) (Auto) 7.8 % 8.3 % Monocytes (%) (Auto) 7.3 % 7.7 % Eosinophils (%) (Auto) 0.2 % 0.0 % Basophils (%) (Auto) 0.4 % 0.3 % Neutrophils # (Auto) 4.36 K/uL 3.01 K/uL Lymphocytes # (Auto) 0.41 K/uL 0.30 K/uL Monocytes # (Auto) 0.38 K/uL 0.28 K/uL Eosinophils # (Auto) 0.01 K/uL 0.00 K/uL Basophils # (Auto) 0.02 K/uL 0.01 K/uL RDW Standard Deviation 45.8 fL 45.6 fL RDW Coefficient of Variation 14.1 % 14.2 % Immature Granulocyte % (Auto) 1.1 % 0.8 % Immature Granulocyte # (Auto) 0.06 K/uL 0.03 K/uL Blood Smear Review Platelet Estimate DECREASED Red Blood Cell Morphology Unremarkable Prothrombin Time 11.3 SECONDS 12.1 SECONDS Prothromb Time International Ratio 1.1 1.1 Activated Partial Thromboplast Time 30.6 SECONDS 34.9 SECONDS Partial Thromboplastin Ratio 1.2 1.3 Sodium Level 139 mmol/L 138 mmol/L Potassium Level 3.7 mmol/L 4.0 mmol/L Chloride Level 102 mmol/L 105 mmol/L Carbon Dioxide Level 25 mmol/L 22 mmol/L Anion Gap 12.0 mmol/L 11.0 mmol/L Blood Urea Nitrogen 51 mg/dl 64 mg/dl Creatinine 3.00 mg/dl 3.50 mg/dl Est Creatinine Clear Calc Drug Dose 22.6 ml/min 19.2 ml/min Estimated GFR () 21.9 18.2 Estimated GFR (Non- 18.9 15.7 BUN/Creatinine Ratio 17.0 18.2 Random Glucose 119 mg/dl 119 mg/dl Calcium Level 9.0 mg/dl 8.1 mg/dl Total Bilirubin 1.9 mg/dl 1.5 mg/dl Aspartate Amino Transf (AST/SGOT) 147 U/L 203 U/L Alanine Aminotransferase (ALT/SGPT) 66 U/L 75 U/L Alkaline Phosphatase 79 U/L 57 U/L Troponin I 13.000 ng/ml 14.200 ng/ml 17.000 ng/ml Total Protein 7.8 gm/dl 6.4 gm/dl Albumin 3.7 gm/dl 2.8 gm/dl Globulin 4.1 gm/dl Albumin/Globulin Ratio 0.9 Total Creatine Kinase 1796 U/L 1439 U/L Creatine Kinase MB 6.0 ng/ml 3.7 ng/ml Creatine Kinase MB Ratio 0.3 0.3 Triglycerides Level 164 mg/dl Cholesterol Level 103 mg/dl HDL Cholesterol 12 mg/dl LDL Cholesterol, Calculated 58 mg/dl VLDL Cholesterol, Calculated 33 mg/dl Cholesterol/HDL Ratio 8.6 Magnesium Level 2.2 mg/dl Fibrinogen 597 mg/dl Fibrin Degradation Products >40 mcg/ml D-Dimer > 60380 ug/L FEU Lactic Acid Level 1.9 mmol/L Direct Bilirubin 0.7 mg/dl Lyme Disease IgG Antibody NEG Lyme Disease IgM Antibody NEG Test 12/21/16 12:05 12/21/16 13:55 12/21/16 14:20 12/21/16 16:05 Urine Color DK YELLOW Urine Appearance TURBID Urine pH 5.0 Urine Specific [place] 1.018 Urine Protein 2+ Urine Glucose (UA) NEG Urine Ketones NEG Urine Occult Blood 3+ Urine Nitrite NEG Urine Bilirubin NEG Urine Urobilinogen NEG Urine Leukocyte Esterase NEG Urine WBC (Auto) 10-30 /hpf Urine RBC (Auto) 5-10 /hpf Urine Hyaline Casts (Auto) 1-5 /lpf Urine Epithelial Cells (Auto) >30 /lpf Urine Bacteria (Auto) NEG Urine Renal Epithelial Cells /lpf Urine Crystals See comments Urine Pathogenic Casts 0-3 GRANULAR CASTS /lpf Urine Yeast (Auto) Arterial Blood pH 7.48 Arterial Blood Partial Pressure CO2 30 mmHg Arterial Blood Partial Pressure O2 72 mm/Hg Arterial Blood HCO3 22 mmol/L Arterial Blood Oxygen Saturation 94.3 % Arterial Blood Base Excess -1.2 mEq/L Arterial Blood Gas Delivery 4L Te Test POS Lactic Acid Level 1.3 mmol/L Ammonia 15.0 umol/L Total Creatine Kinase 1267 U/L Creatine Kinase MB 4.3 ng/ml Creatine Kinase MB Ratio 0.3 Troponin I 18.500 ng/ml Lactate Dehydrogenase 857 U/L Imaging: Normal left ventricular size and function, no wall motion abnormalities EKG: Sinus rhythm with nonspecific lateral ST-T abnormalities, no acute change Telemetry reviewed: Sinus rhythm, no significant arrhythmia Assessment & Plan #1. Elevated cardiac enzymes: The cause of this remains uncertain, although his troponin is quite elevated and rising his electrocardiogram does not indicate acute injury although he does have some lateral ST depression. His echocardiogram does not show significant left ventricular dysfunction to suggest myocarditis although that is a possibility. At this point I would continue to watch, getting at least daily troponins. I certainly don't think we should consider catheterization now with his rising creatinine. Perhaps this is part of a DIC picture with diffuse myocardial injury. #2. Acute renal disease: As far as I know he does not have chronic renal insufficiency, his acute kidney injury and the rising creatinine may be related to his presentation. I don't believe he is dehydrated and would be cautious about fluid, although some may be indicated. If his kidney function continues to worsen however we may have difficulty removing fluid. #3. Left sided facial droop: I have known him for many years and has never noticed this before, it was obvious to me when I saw him in his room. I believe this is new, despite the negative MRI and CAT scan I'm concerned about this. It evidently is not a large stroke, perhaps it is small lesions as well. I would defer to neurology as to the cause. If we do identify embolic phenomenon we may have to consider JUAN, to my knowledge she does not have a history of atrial fibrillation. Thank you for allowing me to participate in his care.
--- NOTE | 2016-12-21 17:13 | INFECT. DISEASE CONSULTATION ---
DATE OF CONSULTATION: 12/21/2016 REQUESTING PHYSICIAN: Edin Guerrier MD HISTORY OF PRESENT ILLNESS: This is a 81-year-old gentleman who was admitted after he had fevers and chills for 3 days prior to admission. He also was having episodes of urinary incontinence at home. He is lethargic on my examination, and I am able to obtain a very limited history. The majority of his history is obtained from the H\\T\\P. He apparently was recently in [place], [place] visiting friends and he developed fevers and chills. He subsequently came home, and continued to have worsening fevers, chills, increasing fatigue and shortness of breath. He did not have any episodes of chest pain at home. Since he has been admitted to the hospital, he has been persistently febrile with a T-max of 38.4. His current temperature is 37.7. As part of his initial workup, he did have liver function studies done and his AST is elevated at 147. His creatinine is elevated at 3 upon admission with a normal baseline creatinine. A Lyme titer was done and was negative. His troponin was found to be elevated at 13 and this has increased to 18. A urinalysis was unremarkable. Urine cultures and blood cultures are pending. He was started on Zosyn prior to any cultures being obtained. As part of his cardiac workup, he did have an echocardiogram which was negative for vegetation. He has also been found to be leukopenic with a white count of 3.6 today, he is also thrombocytopenic with platelets of 24. Because of this hematology/oncology consultation was obtained and a peripheral smear was obtained. Per the hematology/oncology consult, there is inclusion bodies consistent with ehrlichiosis. He has been started on doxycycline today and an infectious diseases consult was obtained. I am unable to obtain any history from patient at this time regarding recent tick bites. He did have a negative Lyme titer here. He does not have any recent history of rashes; however, I cannot get patient to confirm this as he is lethargic. He also was noted to have a focal left-sided drooping which was noted about 1.5-2 weeks prior to admission. It does not appear that the fevers and chills had been present as long as drooping. On my examination today, patient tells me he is extremely tired because he has had multiple tests done and it has "worn him out." PAST MEDICAL HISTORY: Enlarged prostate and asthma. PAST SURGICAL HISTORY: Unremarkable. FAMILY HISTORY: Noncontributory. SOCIAL HISTORY: Negative for alcohol use, drug use or tobacco use. I do not know of any recent travel other than a trip to [place]. ALLERGIES: ERYTHROMYCIN, LISINOPRIL AND ATORVASTATIN. CURRENT MEDICATIONS: Include alfuzosin, MiraLax, Zantac, Zocor, doxycycline intravenously, calcium and vitamin D, Cymbalta, Neurontin, Toprol-XL, Protonix, Synthroid, Zosyn, Zofran, Tylenol. PHYSICAL EXAMINATION: VITAL SIGNS: T-max is 38.4, current temperature is 37.7, pulse 105, respiratory rate is 16, blood pressure is 157/75, oxygen saturation is 96% on 2 liters. The patient is lethargic on exam. HEENT: Mucous membranes are dry. HEART: Regular. I do not auscultate a murmur. LUNGS: Clear but there is poor inspiratory effort. ABDOMEN: Soft and nondistended. EXTREMITIES: There is no lower extremity edema. I do not see any rash. Bynum catheter is in place. LABORATORY STUDIES: CBC today reveals a white blood cell count of 3.6, hemoglobin 12.2, hematocrit 35.2, and platelets are 24. Chemistry panel today reveals a sodium of 138, potassium 4.0, chloride 105, bicarbonate 22, BUN 64, creatinine 3.5 up from 3.0 on admission. Glucose is 119. Lactic acid is 1.9. Total CK today is 1439, improved to 1796 yesterday. Troponin is 17, this did increase to 18.5. Ammonia level is 15. Again, AST was 147 on admission, ALT was 66. A urinalysis had 10-30 WBCs with no bacteria. Lyme titer is negative. Blood and urine cultures are pending. Chest x-ray was done this morning and showed trace effusions but no consolidation. A brain MRI done yesterday shows no acute changes. Head CT done in the Emergency Room was unremarkable for acute change. ASSESSMENT AND PLAN: 1. Likely ehrlichiosis. 2. Leukopenia and thrombocytopenia, certainly consistent with a diagnosis of ehrlichia. He has been started on doxycycline and this will be continued. I would continue to monitor both his CBC as well as LFTs and renal function. We will follow along with you. Thank you for this consultation.
--- NOTE | 2016-12-21 17:36 | Nephrology Consultation ---
Nephrology Consultation Date & Providers Date of Consultation: December 21, 2016. Primary Care Provider: Gio Angel M.D. Referring Provider: Reason for Consultation Acute renal insufficiency History of Present Illness Mr. Kane Gill is a 81-year-old male presented to [facility] yesterday with fevers, chills, urinary incontinence, generalized weakness, shortness of Breath, and a left facial droop. Initial stroke evaluation including CT scan of the head and MRI did not show evidence of an acute CVA. Laboratory evaluation was notable for thrombocytopenia, acute renal insufficiency and elevated troponin. There are nonspecific ST-T changes on EKG these did not appear to be new. Patient did not endorse any chest pain. He was persistently febrile throughout admission. He has been not eating oliguric. Urinary symptoms started to improve after admission. He has been receiving gentle hydration with normal saline. Mr. Gill was seen by Cardiology and Hematology in consultation. The patient denied any recent significant history of new nephrotoxic medication use. This includes no significant NSAID use. He was on HCTZ and Losartan. These medications have been held. TTE was obtained this morning. Past Medical/Surgical History Medical: Hypertension, hypothyroidism, GERD, history of CVA osteoarthritis, spinal stenosis with well lumbar radiculopathy, post herpetic trigeminal neuralgia, BPH , asthma Surgical: EGD, colonoscopy, tonsils and adenoids Allergies Coded Allergies: Erythromycin (Verified Allergy, Intermediate, THROAT BEGAN TO SWELL SHUT, 09/04/15) PT Lisinopril (Verified Adverse Reaction, Intermediate, COUGH, 09/04/15) Atorvastatin (Verified Adverse Reaction, Unknown, MYALGIAS, 09/04/15) PT/ALLSCRIPTS Inpatient Medications Current Inpatient Medications Medications (Trade) Dose Ordered Sig/Sheree Route Start Time Stop Time Status Last Admin Dose Admin Sodium Chloride (Nss 1000ml) 1,000 ml @ 75 mls/hr [id number] IV 12/21/16 02:00 01/20/17 01:59 12/21/16 16:10 75 MLS/HR Acetaminophen (Tylenol Tab) 650 mg Q4H PRN PO 12/20/16 22:00 01/19/17 21:59 Nitroglycerin (Nitrostat Tab) 0.4 mg UD PRN SL 12/20/16 22:00 01/19/17 21:59 Alfuzosin HCl (Uroxatral Tab) 10 mg HS PO 12/21/16 21:00 01/20/17 20:59 Calcium/Vitamin D (Caltrate Plus Tab) 1 tab BID PO 12/21/16 09:00 01/20/17 08:59 12/21/16 08:37 1 TAB Cholecalciferol (Vitamin D Tab) 1,000 inter.unit DAILY PO 12/21/16 09:00 01/20/17 08:59 12/21/16 08:37 1,000 INTER.UNIT Duloxetine HCl (Cymbalta Cap) 60 mg DAILY PO 12/21/16 09:00 01/20/17 08:59 12/21/16 08:37 60 MG Gabapentin (Neurontin Tab) 800 mg TID PO 12/21/16 09:00 01/20/17 08:59 12/21/16 12:56 800 MG Levothyroxine Sodium (Synthroid Tab) 100 mcg DAILYBB PO 12/21/16 06:00 01/20/17 06:59 Metoprolol Succinate (Toprol Xl Tab) 50 mg DAILY PO 12/21/16 09:00 01/20/17 08:59 12/21/16 08:37 50 MG Polyethylene (Miralax Powder Packet) 17 gm HS PO 12/21/16 21:00 01/20/17 20:59 Ranitidine HCl (zANTac TAB) 150 mg HS PO 12/21/16 21:00 01/20/17 20:59 Simvastatin (Zocor Tab) 20 mg QPM PO 12/21/16 21:00 01/20/17 20:59 Loratadine (Claritin Tab) 10 mg QAM PRN PO 12/20/16 22:00 01/19/17 21:59 Miscellaneous Information (Order Awaiting Action) 1 ea QS N/A 12/21/16 00:00 01/20/17 00:00 Pantoprazole Sodium (Protonix Tab) 40 mg QAM PO 12/21/16 09:00 01/20/17 08:59 12/21/16 08:37 40 MG Miscellaneous Information (Order Awaiting Action) 1 ea QS N/A 12/21/16 00:00 01/20/17 00:00 Ondansetron HCl 4 mg 4 mg Q6H PRN IV 12/20/16 22:15 01/19/17 22:14 Piperacillin Sod/ Tazobactam Sod/ Dextrose (Zosyn Iv/D5 100ml) 115 ml @ 28.75 mls/ hr Q8H IV 12/21/16 04:00 12/31/16 03:59 12/21/16 11:35 28.75 MLS/HR Piperacillin Sod/ Tazobactam Sod 1 ea 1 ea UD PRN N/A 12/21/16 02:15 01/20/17 02:14 Doxycycline Hyclate/Dextrose (Vibramycin IV/ D5 100ml) 110 ml @ 50 mls/hr Q12H IV 12/21/16 15:30 12/31/16 15:29 12/21/16 16:09 50 MLS/HR Family History Patient reports no known family medical history. Social History Smoking Status: Never Smoker Smokeless Tobacco Use: No Alcohol Use: none Drug Use: none Occupation: retired Review of Systems A complete review of systems was performed. Pertinent positives are noted above. All other systems are negative. Physical Exam Date Time Temp Pulse Resp B/P Pulse Ox O2 Delivery O2 Flow Rate FiO2 12/21/16 15:20 37.0 103 20 135/83 93 Nasal Cannula 4.0 12/21/16 12:00 96 Nasal Cannula 2.0 12/21/16 11:00 37.7 105 16 157/75 95 2.0 12/21/16 08:00 96 Nasal Cannula 2.0 12/21/16 07:31 38.0 101 16 130/67 96 2.0 12/21/16 04:00 92 Nasal Cannula 2.0 12/21/16 03:43 38.0 103 25 126/71 92 Nasal Cannula 2.0 12/21/16 03:42 38.0 103 25 126/71 92 Nasal Cannula 2.0 12/21/16 01:35 38.4 111 24 117/69 93 Nasal Cannula 2.0 12/21/16 01:35 38.4 111 24 117/69 93 Nasal Cannula 2.0 12/21/16 00:40 129 22 135/78 92 12/20/16 23:56 128 24 140/83 93 Nasal Cannula 2.0 12/20/16 22:00 124 22 117/86 92 Nasal Cannula 2.0 12/20/16 21:30 126 22 147/81 93 Nasal Cannula 2.0 12/20/16 20:29 119 22 158/79 94 Nasal Cannula 2.0 12/20/16 20:28 88 Room Air 12/20/16 19:51 118 16 154/73 93 Room Air 12/20/16 19:27 113 12/20/16 19:16 114 18 154/68 93 Room Air 12/20/16 19:15 93 Room Air 12/20/16 18:39 37.4 99 20 106/68 97 Room Air General Appearance: WD/WN, no apparent distress, + obese Head: normocephalic, atraumatic Eyes: normal inspection, sclerae normal ENT: normal ENT inspection, pharynx normal Neck: supple, no JVD Respiratory/Chest: lungs clear, no respiratory distress, no accessory muscle use Cardiovascular: regular rate, rhythm, no gallop Abdomen/GI: non tender, soft, + distended Extremities/Musculoskelatal: normal inspection, + pedal edema (trace) Neurologic/Psych: alert, oriented x 3 Skin: normal color, no rash Laboratory Results Last 24 Hours Test 12/20/16 19:05 12/20/16 22:16 12/21/16 06:35 12/21/16 11:20 White Blood Count 5.24 K/uL 3.63 K/uL Red Blood Count 4.77 M/uL 4.04 M/uL Hemoglobin 14.7 g/dL 12.2 g/dL Hematocrit 42.1 % 35.2 % Mean Corpuscular Volume 88.3 fL 87.1 fL Mean Corpuscular Hemoglobin 30.8 pg 30.2 pg Mean Corpuscular Hemoglobin Concent 34.9 g/dl 34.7 g/dl Platelet Count 47 K/uL 30 K/uL 24 K/uL Mean Platelet Volume 11.1 fL 12.2 fL Neutrophils (%) (Auto) 83.2 % 82.9 % Lymphocytes (%) (Auto) 7.8 % 8.3 % Monocytes (%) (Auto) 7.3 % 7.7 % Eosinophils (%) (Auto) 0.2 % 0.0 % Basophils (%) (Auto) 0.4 % 0.3 % Neutrophils # (Auto) 4.36 K/uL 3.01 K/uL Lymphocytes # (Auto) 0.41 K/uL 0.30 K/uL Monocytes # (Auto) 0.38 K/uL 0.28 K/uL Eosinophils # (Auto) 0.01 K/uL 0.00 K/uL Basophils # (Auto) 0.02 K/uL 0.01 K/uL RDW Standard Deviation 45.8 fL 45.6 fL RDW Coefficient of Variation 14.1 % 14.2 % Immature Granulocyte % (Auto) 1.1 % 0.8 % Immature Granulocyte # (Auto) 0.06 K/uL 0.03 K/uL Blood Smear Review Platelet Estimate DECREASED Red Blood Cell Morphology Unremarkable Prothrombin Time 11.3 SECONDS 12.1 SECONDS Prothromb Time International Ratio 1.1 1.1 Activated Partial Thromboplast Time 30.6 SECONDS 34.9 SECONDS Partial Thromboplastin Ratio 1.2 1.3 Sodium Level 139 mmol/L 138 mmol/L Potassium Level 3.7 mmol/L 4.0 mmol/L Chloride Level 102 mmol/L 105 mmol/L Carbon Dioxide Level 25 mmol/L 22 mmol/L Anion Gap 12.0 mmol/L 11.0 mmol/L Blood Urea Nitrogen 51 mg/dl 64 mg/dl Creatinine 3.00 mg/dl 3.50 mg/dl Est Creatinine Clear Calc Drug Dose 22.6 ml/min 19.2 ml/min Estimated GFR () 21.9 18.2 Estimated GFR (Non- 18.9 15.7 BUN/Creatinine Ratio 17.0 18.2 Random Glucose 119 mg/dl 119 mg/dl Calcium Level 9.0 mg/dl 8.1 mg/dl Total Bilirubin 1.9 mg/dl 1.5 mg/dl Aspartate Amino Transf (AST/SGOT) 147 U/L 203 U/L Alanine Aminotransferase (ALT/SGPT) 66 U/L 75 U/L Alkaline Phosphatase 79 U/L 57 U/L Troponin I 13.000 ng/ml 14.200 ng/ml 17.000 ng/ml Total Protein 7.8 gm/dl 6.4 gm/dl Albumin 3.7 gm/dl 2.8 gm/dl Globulin 4.1 gm/dl Albumin/Globulin Ratio 0.9 Total Creatine Kinase 1796 U/L 1439 U/L Creatine Kinase MB 6.0 ng/ml 3.7 ng/ml Creatine Kinase MB Ratio 0.3 0.3 Triglycerides Level 164 mg/dl Cholesterol Level 103 mg/dl HDL Cholesterol 12 mg/dl LDL Cholesterol, Calculated 58 mg/dl VLDL Cholesterol, Calculated 33 mg/dl Cholesterol/HDL Ratio 8.6 Magnesium Level 2.2 mg/dl Fibrinogen 597 mg/dl Fibrin Degradation Products >40 mcg/ml D-Dimer > 69752 ug/L FEU Lactic Acid Level 1.9 mmol/L Direct Bilirubin 0.7 mg/dl Lyme Disease IgG Antibody NEG Lyme Disease IgM Antibody NEG Test 12/21/16 12:05 12/21/16 13:55 12/21/16 14:20 12/21/16 16:05 Urine Color DK YELLOW Urine Appearance TURBID Urine pH 5.0 Urine Specific [place] 1.018 Urine Protein 2+ Urine Glucose (UA) NEG Urine Ketones NEG Urine Occult Blood 3+ Urine Nitrite NEG Urine Bilirubin NEG Urine Urobilinogen NEG Urine Leukocyte Esterase NEG Urine WBC (Auto) 10-30 /hpf Urine RBC (Auto) 5-10 /hpf Urine Hyaline Casts (Auto) 1-5 /lpf Urine Epithelial Cells (Auto) >30 /lpf Urine Bacteria (Auto) NEG Urine Renal Epithelial Cells /lpf Urine Crystals See comments Urine Pathogenic Casts 0-3 GRANULAR CASTS /lpf Urine Yeast (Auto) Arterial Blood pH 7.48 Arterial Blood Partial Pressure CO2 30 mmHg Arterial Blood Partial Pressure O2 72 mm/Hg Arterial Blood HCO3 22 mmol/L Arterial Blood Oxygen Saturation 94.3 % Arterial Blood Base Excess -1.2 mEq/L Arterial Blood Gas Delivery 4L Te Test POS Lactic Acid Level 1.3 mmol/L Ammonia 15.0 umol/L Total Creatine Kinase 1267 U/L Creatine Kinase MB 4.3 ng/ml Creatine Kinase MB Ratio 0.3 Troponin I 18.500 ng/ml Lactate Dehydrogenase 857 U/L Impression (1) Acute renal insufficiency (2) Ehrlichiosis (3) Trigeminal neuralgia (4) Thrombocytopenia (5) Elevation of cardiac enzymes (6) Hypertension Kane is a 81-year-old male with a history of hypertension, 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 He presented to [facility] with fevers, chills, urinary incontinence, generalized weakness, shortness of Breath left facial droop. Imaging did not reveal acute stroke. laboratory evaluation was notable for acute renal insufficiency. Urine output decreased but not quantified. Baseline creatinine 1.1 milligram/deciliter. Creatinine today 3.5 milligram/ deciliter. Metabolic profile otherwise within normal limits. Troponin is elevated and rising. No acute changes on EKG. TTE was reviewed today documenting mild concentric LVH with hyperdynamic LV function and type 1 diastolic dysfunction. There is notable thrombocytopenia. Overall coags appear to be within limits including fibrinogen. Peripheral smear was reviewed by hematology revealing intracellular inclusions consistent with Ehrlichiosis. Urine analysis is notable for proteinuria and granular casts. This is consistent with ATN. Microscopy revealing a few RBCs and WBCs. 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 Given infectious symptoms, an HLH syndrome may be concerning. Recommendations -- Continue NS @ 75-100 ml/hr -- Monitor metabolic profile daily -- Document I/O's -- Hold HCTZ and Losartan -- Decrease gabapentin to daily (medication was recently increased in the neurology clinic in October for trigeminal neuralgia symptoms) -- Medications otherwise appropriate for renal function -- Medical records were reviewed in detail today including conversation with primary service and consultants, TTE was reviewed -- Non contrast CT scan pending -- Repeat UA/microscopy in next 24-48 hours
[2016-12-21] MEDS: ALFUZosin TAB 10 MG TAB PO SCH (19:54)
[2016-12-21] MEDS: RANITIDINE HCL 150 MG TAB PO SCH (19:55)
[2016-12-21] MEDS: POLYETHYLENE (MIRALAX) 17 GM PACK PO SCH (19:55)
[2016-12-21] MEDS: SIMVASTATIN 20 MG TAB PO SCH (19:56)
[2016-12-22] VITALS (14 sets, daily range): BP systolic 90–112; BP diastolic 49–63; PULSE 68–83; TEMP 36.3–36.9; O2SAT 94–98
[2016-12-22] MEDS: DOXYCYCLINE IV 100 MG in DEXTROSE 5% 100ML 100 ML IV SCH ×2 (03:39→15:57)
[2016-12-22] MEDS: PIPERACILL/TAZOBAC IV 3.375 GM in DEXTROSE 5% 100ML 100 ML IV SCH ×2 (03:39→12:06)
[2016-12-22] MEDS ORDERED: NURSING DECISION MEDICATION ORDER SCH (05:15)
[2016-12-22] MEDS ORDERED: ALBUMIN HUMAN 25% 12.5 GM/50 ML VIAL IV STA (05:25)
[2016-12-22] MEDS: LEVOTHYROXINE 100 MCG TAB PO SCH (05:52)
--- NOTE | 2016-12-22 06:22 | Clinical Documentation Query ---
I CLINICAL DOCUMENTATION QUERY I AM NOT INVOLVED IN THIS PATIENT CARE [facility] HAVE THIS PATIENT IN THEIR SERVICE GINNA CHAIREZ Query #1/3 NSTEMI was well documented on H&P but has since fallen of the record. Ehrlichiosis with DIC are underling factors. Troponin's continue to climb In your clinical opinion is this patient being managed for: ( ) NSTEMI in setting of Ehrlichiosis with DIC with massive clotting ( ) Not Agree Query #2/3 Possible DIC has been documented on H&P and shortly by cardiology. The patient certainly exhibits clinical indicators for it with low platelets, signs of massive clotting, end organ involvement and underlying triggering infection of Ehrlichiosis. In your clinical opinion is this patient being managed for: ( ) Disseminated intravascular coagulation (DIC) ( ) Not Agree Query #3/3 Cardiology makes mention of a small stroke not seen by imaging. In your clinical opinion is this patient being managed for: ( ) Small CVA in setting of DIC due to underling Ehrlichiosis infection. ( ) Not Agree Please clarify and document your clinical opinion in the progress notes and discharge summary. Terms such as "probable", "suspected", "likely", "questionable", "possible", or "still to be ruled out" are acceptable. IF IN AGREEMENT, YOU MUST DOCUMENT ABOVE DIAGNOSTIC STATEMENT IN DAILY PROGRESS NOTES AND DISCHARGE SUMMARY. This document is not part of the patient's record. Thank You, Darian Camacho, RN [phone]
--- NOTE | 2016-12-22 06:26 | Clinical Documentation Query ---
CLINICAL DOCUMENTATION QUERY Query #1/3 NSTEMI was well documented on H&P but has since fallen of the record. Ehrlichiosis with DIC are underling factors. Troponin's continue to climb In your clinical opinion is this patient being managed for: ( ) NSTEMI in setting of Ehrlichiosis with DIC with massive clotting ( ) Not Agree Query #2/3 Possible DIC has been documented on H&P and shortly by cardiology. The patient certainly exhibits clinical indicators for it with low platelets, signs of massive clotting, end organ involvement and underlying triggering infection of Ehrlichiosis. In your clinical opinion is this patient being managed for: ( ) Disseminated intravascular coagulation (DIC) ( ) Not Agree Query #3/3 Cardiology makes mention of a small stroke not seen by imaging. In your clinical opinion is this patient being managed for: ( ) Small CVA in setting of DIC due to underling Ehrlichiosis infection. ( ) Not Agree Please clarify and document your clinical opinion in the progress notes and discharge summary. Terms such as "probable", "suspected", "likely", "questionable", "possible", or "still to be ruled out" are acceptable. IF IN AGREEMENT, YOU MUST DOCUMENT ABOVE DIAGNOSTIC STATEMENT IN DAILY PROGRESS NOTES AND DISCHARGE SUMMARY. This document is not part of the patient's record. Thank You, Darian Camacho, RN [phone]
--- NOTE | 2016-12-22 06:48 | DIAGNOSTIC IMAGING REPORT ---
ABDOMEN CT WITHOUT CONTRAST CT DOSE: 1193.13 mGy.cm HISTORY: Pain renal failure, fever TECHNIQUE: Multiaxial CT images of the abdomen was performed without contrast. COMPARISON STUDY: None. FINDINGS: Mild bibasilar atelectasis. Fixed hiatal hernia. Moderate thickening distal esophageal wall. Liver spleen and pancreas are unremarkable. Respiratory motion artifact is present. Kidneys negative for hydronephrosis. There are considerable degenerative changes of the thoracal and upper lumbar spine. IMPRESSION: 1. Fixed hiatal hernia with esophageal wall thickening distally. 2. Mild bibasilar atelectasis 3. No acute process of the abdomen within limitations of an unenhanced scan. Electronically signed by: Josh Ro M.D. 12/22/2016 6:46 AM Dictated Date/Time: 12/22/2016 6:44 AM
[2016-12-22] MEDS: AVODART~ORDER AWAITING ACTION SCH ×3 (08:00→23:54)
[2016-12-22] MEDS: METOPROLOL SUCC 50MG EXT REL TAB PO SCH (08:25)
[2016-12-22] MEDS: PANTOprazole SOD 40 MG TAB PO SCH ×3 (08:28→09:36)
[2016-12-22] MEDS: DULOXETINE HCL 60 MG CAP PO SCH ×3 (08:28→09:36)
[2016-12-22] MEDS: CALCIUM 600MG + VIT D 400 IU TAB PO SCH ×4 (08:28→20:46)
[2016-12-22] MEDS: CHOLECALCIFEROL 1000 INTER.UNIT TAB PO SCH ×3 (08:28→09:36)
[2016-12-22] MEDS: SODIUM CHLORIDE 0.9% 1000ML 1,000 ML IV SCH (08:29)
[2016-12-22 08:43] LABS: INR 1.1 (0.9-1.1); PARTIAL THROMBOPLASTIN RATIO 1.3; PROTHROMBIN TIME (PATIENT) 11.9 SECONDS (9.0-12.0)
[2016-12-22 08:56] LABS: HEMATOCRIT 31.8 % (42-52); MEAN CELL VOLUME 88.1 fL (80-100); MEAN CORPUSCULAR HEMOGLOBIN 30.5 pg (25-34); MEAN CORPUSCULAR HGB CONC 34.6 g/dl (32-36); RED BLOOD COUNT 3.61 M/uL (4.7-6.1); WHITE BLOOD COUNT 3.68 K/uL (4.8-10.8)
[2016-12-22] MEDS ORDERED: GABAPENTIN 800 MG TAB PO SCH (09:00)
[2016-12-22 09:06] LABS: PLATELET COUNT 20 K/uL (130-400)
[2016-12-22 09:07] LABS: BASO % 0.8 %; BASO ABS # 0.03 K/uL (0-0.2); COMPLETE YES; ECHINOCYTES 2+; IG% 1.6 %; LARGE PLATELETS 1+; LYMPH % 14.1 %; LYMPH ABS # 0.52 K/uL (1.2-3.4); MONO % 5.2 %; NEUT % 78.3 %; PLT ESTIMATE SIGNIFIC DECREASED; VACUOLIZATION 1+
--- NOTE | 2016-12-22 09:08 | Hematology/Oncology Prog Note ---
Hematology/Onc Progress Note Date of Service December 22, 2016. 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 Coagulopathy Thrombocytopenia Medications Medications Administered Medications (Trade) Dose Ordered Sig/Sheree Route Start Time Stop Time Status Last Admin Dose Admin Sodium Chloride 1,000 ml @ 50 mls/hr Q20H IV 12/20/16 18:54 12/21/16 02:01 DC 12/20/16 20:32 50 MLS/HR Sodium Chloride (Nss 1000ml) 1,000 ml @ 75 mls/hr [id number] IV 12/21/16 02:00 01/20/17 01:59 12/22/16 08:29 75 MLS/HR Alfuzosin HCl (Uroxatral Tab) 10 mg HS PO 12/21/16 21:00 01/20/17 20:59 12/21/16 19:54 10 MG Calcium/Vitamin D (Caltrate Plus Tab) 1 tab BID PO 12/21/16 09:00 01/20/17 08:59 12/21/16 19:55 1 TAB Cholecalciferol (Vitamin D Tab) 1,000 inter.unit DAILY PO 12/21/16 09:00 01/20/17 08:59 12/21/16 08:37 1,000 INTER.UNIT Duloxetine HCl (Cymbalta Cap) 60 mg DAILY PO 12/21/16 09:00 01/20/17 08:59 12/21/16 08:37 60 MG Gabapentin (Neurontin Tab) 800 mg TID PO 12/21/16 09:00 12/21/16 17:39 DC 12/21/16 12:56 800 MG Metoprolol Succinate (Toprol Xl Tab) 50 mg DAILY PO 12/21/16 09:00 01/20/17 08:59 12/21/16 08:37 50 MG Polyethylene (Miralax Powder Packet) 17 gm HS PO 12/21/16 21:00 01/20/17 20:59 12/21/16 19:55 17 GM Ranitidine HCl (zANTac TAB) 150 mg HS PO 12/21/16 21:00 01/20/17 20:59 12/21/16 19:55 150 MG Simvastatin (Zocor Tab) 20 mg QPM PO 12/21/16 21:00 01/20/17 20:59 12/21/16 19:56 20 MG Pantoprazole Sodium (Protonix Tab) 40 mg QAM PO 12/21/16 09:00 01/20/17 08:59 12/21/16 08:37 40 MG Metoprolol Succinate 50 mg 50 mg NOW STAT PO 12/20/16 22:05 12/20/16 22:47 DC 12/20/16 23:53 50 MG Piperacillin Sod/ Tazobactam Sod/ Dextrose (Zosyn Iv/D5 100ml) 115 ml @ 28.75 mls/ hr Q8H IV 12/21/16 04:00 12/31/16 03:59 12/22/16 03:39 28.75 MLS/HR Piperacillin Sod/ Tazobactam Sod (Zosyn Iv) 4.5 gm NOW STAT IV 12/20/16 22:06 12/20/16 22:49 DC 12/20/16 23:52 4.5 GM Lorazepam 0.5 mg 0.5 mg NOW STAT IV 12/20/16 23:35 12/20/16 23:40 DC 12/21/16 00:21 0.5 MG Doxycycline Hyclate/Dextrose (Vibramycin IV/ D5 100ml) 110 ml @ 50 mls/hr Q12H IV 12/21/16 15:30 12/31/16 15:29 12/22/16 03:39 50 MLS/HR Albumin Human (Albumin 25%) 25 gm NOW STAT IV 12/22/16 05:25 12/22/16 05:26 DC 12/22/16 05:51 25 GM Subjective Seems to be doing fairly well. He was asleep when I walked in the room but easily aroused and oriented 2-1/2. Denies any new pain or shortness of breath. There has been no overt bleeding. Review of Systems: Constitutional: Negative for night sweats, or fever the past 24 hours Eyes: Negative for event change of vision ENT: Negative for epistaxis, nasal discharge, sore throat, or deafness Cardiovascular: Negative for chest pain, palpitations, dizziness, diaphoresis Respiratory: Negative for new shortness of breath,hemoptysis, or purulent cough Gastrointestinal: Negative for diarrhea, hematemesis, melena, nausea, vomiting , or dyspepsia Integumentary (skin): Negative for rash or jaundice discoloration Genitourinary: Negative for urinary frequency, hematuria, or dysuria Neurological: Negative for weakness, seizure activity, headache, or dizziness Lymphatic/Hematologic: Negative for petechiae, bleeding or new adenopathy Musculoskeletal: Negative for new joint or back pain Allergic/Immunologic: Negative for unusual rash or pruritis. Vital Signs Vital Signs Past 12 Hours Date Time Temp Pulse Resp B/P Pulse Ox O2 Delivery O2 Flow Rate FiO2 12/22/16 08:09 36.3 80 20 90/49 98 Nasal Cannula 2.0 12/22/16 04:09 36.4 80 26 92/54 96 Nasal Cannula 2.0 12/22/16 04:00 Nasal Cannula 2.0 12/22/16 00:11 36.4 83 25 94/57 94 Nasal Cannula 4.0 12/22/16 00:00 Nasal Cannula 4.0 Physical Exam Constitutional: vitals are stable. Eyes: Eyes are BRANDON EOMI without conjuctival erythema or icterus. ENT: External examination was negative for masses. Neck: Negative for masses or palpable thyromegaly Respiratory: Lung sounds were generally clear bilaterally Cardiovascular: Heart was RRR without significant murmur, gallops aoe rubs Gastrointestinal: No palpable hepatic or splenomegaly. The abdomen was soft with normal bowel sounds. Lymphatic system: there was no palpable peripheral lymphadenopathy Musculoskeletal System: The musculoskeletal system seemed concordant with age. Skin: The skin was negative for jaundice. Neurologic exam: The exam was negative for any focal findings. Deep tendon reflexes were equal and symmetrical. Psychiatric exam: Was essentially negative with normal mood and effect. Extremities: Negative for edema or erythema Laboratory Last 24 Hours Test 12/21/16 11:20 12/21/16 12:05 12/21/16 13:55 12/21/16 14:20 Platelet Count 24 K/uL Fibrinogen 597 mg/dl Fibrin Degradation Products >40 mcg/ml D-Dimer > 58190 ug/L FEU Lactic Acid Level 1.9 mmol/L 1.3 mmol/L Total Bilirubin 1.5 mg/dl Direct Bilirubin 0.7 mg/dl Aspartate Amino Transf (AST/SGOT) 203 U/L Alanine Aminotransferase (ALT/SGPT) 75 U/L Alkaline Phosphatase 57 U/L Total Protein 6.4 gm/dl Albumin 2.8 gm/dl Lyme Disease IgG Antibody NEG Lyme Disease IgM Antibody NEG Urine Color DK YELLOW Urine Appearance TURBID Urine pH 5.0 Urine Specific [place] 1.018 Urine Protein 2+ Urine Glucose (UA) NEG Urine Ketones NEG Urine Occult Blood 3+ Urine Nitrite NEG Urine Bilirubin NEG Urine Urobilinogen NEG Urine Leukocyte Esterase NEG Urine WBC (Auto) 10-30 /hpf Urine RBC (Auto) 5-10 /hpf Urine Hyaline Casts (Auto) 1-5 /lpf Urine Epithelial Cells (Auto) >30 /lpf Urine Bacteria (Auto) NEG Urine Renal Epithelial Cells /lpf Urine Crystals See comments Urine Pathogenic Casts 0-3 GRANULAR CASTS /lpf Urine Yeast (Auto) Arterial Blood pH 7.48 Arterial Blood Partial Pressure CO2 30 mmHg Arterial Blood Partial Pressure O2 72 mm/Hg Arterial Blood HCO3 22 mmol/L Arterial Blood Oxygen Saturation 94.3 % Arterial Blood Base Excess -1.2 mEq/L Arterial Blood Gas Delivery 4L Te Test POS Ammonia 15.0 umol/L Total Creatine Kinase 1267 U/L Creatine Kinase MB 4.3 ng/ml Creatine Kinase MB Ratio 0.3 Troponin I 18.500 ng/ml Lactate Dehydrogenase 857 U/L Test 12/21/16 16:05 12/22/16 04:44 12/22/16 08:23 Lyme Disease IgG Antibody NEG Creatine Kinase MB Ratio White Blood Count 3.68 K/uL Red Blood Count 3.61 M/uL Hemoglobin 11.0 g/dL Hematocrit 31.8 % Mean Corpuscular Volume 88.1 fL Mean Corpuscular Hemoglobin 30.5 pg Mean Corpuscular Hemoglobin Concent 34.6 g/dl RDW Standard Deviation 48.2 fL RDW Coefficient of Variation 14.8 % Prothrombin Time 11.9 SECONDS Prothromb Time International Ratio 1.1 Activated Partial Thromboplast Time 34.6 SECONDS Partial Thromboplastin Ratio 1.3 Assessment & Plan His platelet count today is 20,000. I would ask for another CBC in mid afternoon today and transfuse with one unit of pheresed platelets if platelet number drifts below 20,000 otherwise CBC should be checked daily. He is now on doxycycline for presumed Ehrlichiosis. PT PTT today are acceptable.
[2016-12-22 09:34] LABS: BUN/CREATININE RATIO 15.7 (10-20); CALCIUM 7.8 mg/dl (8.5-10.1); CKMB/CK RATIO 1.6 (0-3.0); CREATININE 5.8 mg/dl (0.60-1.40); MAGNESIUM 2.4 mg/dl (1.8-2.4); PHOSPHORUS 5.8 mg/dl (2.5-4.9); POTASSIUM 4.1 mmol/L (3.5-5.1)
[2016-12-22 10:30] LABS: BUN/CREATININE RATIO 15.4 (10-20); CALCIUM 7.5 mg/dl (8.5-10.1); CREATININE 6.1 mg/dl (0.60-1.40)
--- NOTE | 2016-12-22 10:51 | Nephrology Progress Note ---
Nephrology Progress Note Date of Service December 22, 2016. Chief Complaint Acute renal insufficiency Subjective Mr. Gill is feeling slightly better this morning but still very tired. He is able to have a short conversation before falling to sleep. Fevers have improved and denies any chills. He denies shortness of breath. He does not endorse any chest pain. Appetite fair. He was able to eat 50% of breakfast. Bynum catheter in place. Urine output decreased. Relative hypotension noted overnight. Plan of care discussed with Dr. Cormier and Dr. Aguilar. Review of Systems A complete review of systems was performed. Pertinent positives are noted above. All other systems are negative. Vital Signs Last 8 Hrs Date Time Temp Pulse Resp B/P Pulse Ox O2 Delivery O2 Flow Rate FiO2 12/22/16 09:36 92/57 12/22/16 08:09 36.3 80 20 90/49 98 Nasal Cannula 2.0 12/22/16 08:00 96 Nasal Cannula 2.0 12/22/16 04:09 36.4 80 26 92/54 96 Nasal Cannula 2.0 12/22/16 04:00 Nasal Cannula 2.0 I & O 24-Hour Column 12/22/16 08:00 Intake Total 3071 ml Output Total 575 ml Balance 2496 ml Last Recorded Weight Weight (Kilograms): 98.000 Physical Exam General Appearance: no apparent distress, + obese Head: normocephalic, atraumatic Eyes: normal inspection, sclerae normal ENT: normal ENT inspection, + pertinent finding (oral mucosa slightly dry without lesion) Neck: supple, no JVD Respiratory/Chest: lungs clear, no respiratory distress, no accessory muscle use, + wheezing (subtle expiratory appreciated at the bases) Cardiovascular: regular rate, rhythm, no gallop, no murmur Abdomen/GI: non tender, soft Genitourinary - Male: + pertinent finding (Bynum draining concentrated urine) Extremities/Musculoskelatal: + swelling (generalized edema) Neurologic/Psych: + depressed affect, + pertinent finding (Lethargic) Family History Patient reports no known family medical history. 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: retired Laboratory Results Past 24 Hours 12/21/16 11:20 12/22/16 08:23 Red Blood Count 3.61, Mean Corpuscular Volume 88.1, Mean Corpuscular Hemoglobin 30.5, Mean Corpuscular Hemoglobin Concent 34.6, Neutrophils (%) (Auto) 78.3, Lymphocytes (%) (Auto) 14.1, Monocytes (%) (Auto) 5.2, Eosinophils (%) (Auto) 0.0, Basophils (%) (Auto) 0.8, Neutrophils # (Auto) 2.88, Lymphocytes # (Auto) 0.52, Monocytes # (Auto) 0.19, Eosinophils # (Auto) 0.00, Basophils # (Auto) 0.03 12/22/16 08:23 Test 12/21/16 11:20 12/21/16 12:05 12/21/16 13:55 12/21/16 14:20 Fibrinogen 597 mg/dl (184-400) Fibrin Degradation Products >40 mcg/ml (<10) D-Dimer > 89305 ug/L FEU (0-500) Lactic Acid Level 1.9 mmol/L (0.4-2.0) 1.3 mmol/L (0.4-2.0) Total Bilirubin 1.5 mg/dl (0.2-1) Direct Bilirubin 0.7 mg/dl (0-0.2) Aspartate Amino Transf (AST/SGOT) 203 U/L (15-37) Alanine Aminotransferase (ALT/SGPT) 75 U/L (12-78) Alkaline Phosphatase 57 U/L (45-117) Total Protein 6.4 gm/dl (6.4-8.2) Albumin 2.8 gm/dl (3.4-5.0) Lyme Disease IgG Antibody NEG (NEG) Lyme Disease IgM Antibody NEG (NEG) Urine Color DK YELLOW Urine Appearance TURBID (CLEAR) Urine pH 5.0 (4.5-7.5) Urine Specific [place] 1.018 (1.000-1.030) Urine Protein 2+ (NEG) Urine Glucose (UA) NEG (NEG) Urine Ketones NEG (NEG) Urine Occult Blood 3+ (NEG) Urine Nitrite NEG (NEG) Urine Bilirubin NEG (NEG) Urine Urobilinogen NEG (NEG) Urine Leukocyte Esterase NEG (NEG) Urine WBC (Auto) 10-30 /hpf (0-5) Urine RBC (Auto) 5-10 /hpf (0-4) Urine Hyaline Casts (Auto) 1-5 /lpf (0-5) Urine Epithelial Cells (Auto) >30 /lpf (0-5) Urine Bacteria (Auto) NEG (NEG) Urine Renal Epithelial Cells /lpf (0-5) Urine Crystals See comments (NONE PRSENT) Urine Pathogenic Casts 0-3 GRANULAR CASTS /lpf (0) Urine Yeast (Auto) (NONE PRSENT) Arterial Blood pH 7.48 (7.35-7.45) Arterial Blood Partial Pressure CO2 30 mmHg (35-46) Arterial Blood Partial Pressure O2 72 mm/Hg (80-95) Arterial Blood HCO3 22 mmol/L (19-24) Arterial Blood Oxygen Saturation 94.3 % (90-95) Arterial Blood Base Excess -1.2 mEq/L (-9-1.8) Arterial Blood Gas Delivery 4L Te Test POS (POS) Ammonia 15.0 umol/L (11-32) Total Creatine Kinase 1267 U/L (39-308) Creatine Kinase MB 4.3 ng/ml (0.5-3.6) Creatine Kinase MB Ratio 0.3 (0-3.0) Troponin I 18.500 ng/ml (0-0.045) Lactate Dehydrogenase 857 U/L (87-241) Test 12/21/16 16:05 12/22/16 08:23 12/22/16 09:53 Lyme Disease IgG Antibody NEG (NEG) White Blood Count 3.68 K/uL (4.8-10.8) Red Blood Count 3.61 M/uL (4.7-6.1) Hemoglobin 11.0 g/dL (14.0-18.0) Hematocrit 31.8 % (42-52) Mean Corpuscular Volume 88.1 fL (80-100) Mean Corpuscular Hemoglobin 30.5 pg (25-34) Mean Corpuscular Hemoglobin Concent 34.6 g/dl (32-36) Platelet Count 20 K/uL (130-400) Neutrophils (%) (Auto) 78.3 % Lymphocytes (%) (Auto) 14.1 % Monocytes (%) (Auto) 5.2 % Eosinophils (%) (Auto) 0.0 % Basophils (%) (Auto) 0.8 % Neutrophils # (Auto) 2.88 K/uL (1.4-6.5) Lymphocytes # (Auto) 0.52 K/uL (1.2-3.4) Monocytes # (Auto) 0.19 K/uL (0.11-0.59) Eosinophils # (Auto) 0.00 K/uL (0-0.5) Basophils # (Auto) 0.03 K/uL (0-0.2) RDW Standard Deviation 48.2 fL (36.4-46.3) RDW Coefficient of Variation 14.8 % (11.5-14.5) Immature Granulocyte % (Auto) 1.6 % Immature Granulocyte # (Auto) 0.06 K/uL (0.00-0.02) Toxic Vacuolation 1+ Platelet Estimate SIGNIFIC DECREASED Large Platelets 1+ Echinocytes 2+ Prothrombin Time 11.9 SECONDS (9.0-12.0) Prothromb Time International Ratio 1.1 (0.9-1.1) Activated Partial Thromboplast Time 34.6 SECONDS (21.0-31.0) Partial Thromboplastin Ratio 1.3 Anion Gap 14.0 mmol/L (3-11) Est Creatinine Clear Calc Drug Dose 11.7 ml/min Estimated GFR () 9.9 Estimated GFR (Non- 8.5 BUN/Creatinine Ratio 15.7 (10-20) Calcium Level 7.8 mg/dl (8.5-10.1) Phosphorus Level 5.8 mg/dl (2.5-4.9) Magnesium Level 2.4 mg/dl (1.8-2.4) Total Bilirubin 1.2 mg/dl (0.2-1) Direct Bilirubin 0.8 mg/dl (0-0.2) Aspartate Amino Transf (AST/SGOT) 237 U/L (15-37) Alanine Aminotransferase (ALT/SGPT) 103 U/L (12-78) Alkaline Phosphatase 42 U/L (45-117) Total Creatine Kinase 688 U/L (39-308) Creatine Kinase MB 11.2 ng/ml (0.5-3.6) Creatine Kinase MB Ratio 1.6 (0-3.0) Troponin I 13.500 ng/ml (0-0.045) Total Protein 5.4 gm/dl (6.4-8.2) Albumin 2.5 gm/dl (3.4-5.0) Allergies Coded Allergies: Erythromycin (Verified Allergy, Intermediate, THROAT BEGAN TO SWELL SHUT, 09/04/15) PT Lisinopril (Verified Adverse Reaction, Intermediate, COUGH, 09/04/15) Atorvastatin (Verified Adverse Reaction, Unknown, MYALGIAS, 09/04/15) PT/ALLSCRIPTS Medications Current Inpatient Medications Medications (Trade) Dose Ordered Sig/Sheree Route Start Time Stop Time Status Last Admin Dose Admin Sodium Chloride (Nss 1000ml) 1,000 ml @ 75 mls/hr [id number] IV 12/21/16 02:00 01/20/17 01:59 12/22/16 08:29 75 MLS/HR Acetaminophen (Tylenol Tab) 650 mg Q4H PRN PO 12/20/16 22:00 01/19/17 21:59 Nitroglycerin (Nitrostat Tab) 0.4 mg UD PRN SL 12/20/16 22:00 01/19/17 21:59 Alfuzosin HCl (Uroxatral Tab) 10 mg HS PO 12/21/16 21:00 01/20/17 20:59 12/21/16 19:54 10 MG Calcium/Vitamin D (Caltrate Plus Tab) 1 tab BID PO 12/21/16 09:00 01/20/17 08:59 12/22/16 09:35 1 TAB Cholecalciferol (Vitamin D Tab) 1,000 inter.unit DAILY PO 12/21/16 09:00 01/20/17 08:59 12/22/16 09:36 1,000 INTER.UNIT Duloxetine HCl (Cymbalta Cap) 60 mg DAILY PO 12/21/16 09:00 01/20/17 08:59 12/22/16 09:36 60 MG Levothyroxine Sodium (Synthroid Tab) 100 mcg DAILYBB PO 12/21/16 06:00 01/20/17 06:59 Metoprolol Succinate (Toprol Xl Tab) 50 mg DAILY PO 12/21/16 09:00 01/20/17 08:59 12/21/16 08:37 50 MG Polyethylene (Miralax Powder Packet) 17 gm HS PO 12/21/16 21:00 01/20/17 20:59 12/21/16 19:55 17 GM Ranitidine HCl (zANTac TAB) 150 mg HS PO 12/21/16 21:00 01/20/17 20:59 12/21/16 19:55 150 MG Simvastatin (Zocor Tab) 20 mg QPM PO 12/21/16 21:00 01/20/17 20:59 12/21/16 19:56 20 MG Loratadine (Claritin Tab) 10 mg QAM PRN PO 12/20/16 22:00 01/19/17 21:59 Miscellaneous Information (Order Awaiting Action) 1 ea QS N/A 12/21/16 00:00 01/20/17 00:00 Pantoprazole Sodium (Protonix Tab) 40 mg QAM PO 12/21/16 09:00 01/20/17 08:59 12/22/16 09:36 40 MG Miscellaneous Information (Order Awaiting Action) 1 ea QS N/A 12/21/16 00:00 01/20/17 00:00 Ondansetron HCl 4 mg 4 mg Q6H PRN IV 12/20/16 22:15 01/19/17 22:14 Piperacillin Sod/ Tazobactam Sod/ Dextrose (Zosyn Iv/D5 100ml) 115 ml @ 28.75 mls/ hr Q8H IV 12/21/16 04:00 12/31/16 03:59 12/22/16 03:39 28.75 MLS/HR Piperacillin Sod/ Tazobactam Sod 1 ea 1 ea UD PRN N/A 12/21/16 02:15 01/20/17 02:14 Doxycycline Hyclate/Dextrose (Vibramycin IV/ D5 100ml) 110 ml @ 50 mls/hr Q12H IV 12/21/16 15:30 12/31/16 15:29 12/22/16 03:39 50 MLS/HR Impression (1) Acute renal insufficiency (2) Ehrlichiosis (3) Trigeminal neuralgia (4) Thrombocytopenia (5) Elevation of cardiac enzymes (6) Hypertension Kane Bell is a 81-year-old male with hypertension, 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 He presented to [facility] with fevers, chills, urinary incontinence, generalized weakness, shortness of breath and left facial droop. He has progressive acute renal insufficiency. Urine output decreased. Bynum draining dark concentrated urine. Baseline creatinine 1.1 milligram/deciliter. Metabolic profile otherwise within normal limits. Troponin elevated but no longer rising. No acute changes on EKG. TTE was reviewed today documenting mild concentric LVH with hyperdynamic LV function and type 1 diastolic dysfunction. Thrombocytopenia without recovery at this time. Overall coags appear to be within limits including fibrinogen. Clinical presentation consistent with Ehrlichiosis as noted on peripheral smear. Urine analysis is notable for proteinuria and granular casts. This is consistent with ATN. Microscopy revealing a few RBCs and WBCs. 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 Recommendations -- Once current bag of NSS is complete switch to NaHCO3 infusion (w+150 mEq) -- Repeat metabolic profile this afternoon -- Document I/O's -- Continue to hold HCTZ and Losartan -- Gabapentin held -- Medications otherwise appropriate for renal function -- Non contrast CT reviewed this morning documenting normal renal anatomy -- Repeat UA/microscopy in next 24
[2016-12-22] MEDS ORDERED: SODIUM BICARBONATE 8.4% INJ 150 MEQ in STERILE WATER 1000 ML 1,000 ML IV SCH (12:00)
--- NOTE | 2016-12-22 14:18 | Progress Note ---
Subjective Date of Service: December 22, 2016. Subjective Pt evaluation today including: conversation w/ patient, physical exam, chart review, lab review pt still lethargic but comfortable on my exam. fever curved improved overnight, isolated fever 38 overnight. creat increased today, nephro following, troponin improving. platelets decreased. tolerating doxy. urine culture negative, blood culture pending. no complaints. Problem List Medical Problems: (1) Dyspnea on exertion Status: Acute (2) Elevated troponin Status: Acute (3) Left shoulder pain Status: Acute (4) Stroke-like symptoms Status: Acute Objective Vital Signs Date Time Temp Pulse Resp B/P Pulse Ox O2 Delivery O2 Flow Rate FiO2 12/22/16 12:07 36.9 68 22 93/55 96 Nasal Cannula 2.0 12/22/16 09:36 92/57 12/22/16 08:09 36.3 80 20 90/49 98 Nasal Cannula 2.0 12/22/16 08:00 96 Nasal Cannula 2.0 12/22/16 04:09 36.4 80 26 92/54 96 Nasal Cannula 2.0 12/22/16 04:00 Nasal Cannula 2.0 12/22/16 00:11 36.4 83 25 94/57 94 Nasal Cannula 4.0 12/22/16 00:00 Nasal Cannula 4.0 12/21/16 20:00 94 Nasal Cannula 4.0 12/21/16 19:15 38.0 109 20 136/77 94 Nasal Cannula 4.0 12/21/16 16:00 95 Nasal Cannula 2.0 12/21/16 15:20 37.0 103 20 135/83 93 Nasal Cannula 4.0 Physical Exam General Appearance: WD/WN, no apparent distress Respiratory/Chest: lungs clear, normal breath sounds, no respiratory distress Cardiovascular: regular rate, rhythm, no edema Neurologic/Psychiatric: oriented x 3, + pertinent finding (remains lethargic) Skin: normal color Laboratory Results Last 24 Hours Test 12/21/16 14:20 12/21/16 16:05 12/22/16 08:23 12/22/16 09:53 Lactate Dehydrogenase 857 U/L Lyme Disease IgG Antibody NEG White Blood Count 3.68 K/uL Red Blood Count 3.61 M/uL Hemoglobin 11.0 g/dL Hematocrit 31.8 % Mean Corpuscular Volume 88.1 fL Mean Corpuscular Hemoglobin 30.5 pg Mean Corpuscular Hemoglobin Concent 34.6 g/dl Platelet Count 20 K/uL Neutrophils (%) (Auto) 78.3 % Lymphocytes (%) (Auto) 14.1 % Monocytes (%) (Auto) 5.2 % Eosinophils (%) (Auto) 0.0 % Basophils (%) (Auto) 0.8 % Neutrophils # (Auto) 2.88 K/uL Lymphocytes # (Auto) 0.52 K/uL Monocytes # (Auto) 0.19 K/uL Eosinophils # (Auto) 0.00 K/uL Basophils # (Auto) 0.03 K/uL RDW Standard Deviation 48.2 fL RDW Coefficient of Variation 14.8 % Immature Granulocyte % (Auto) 1.6 % Immature Granulocyte # (Auto) 0.06 K/uL Toxic Vacuolation 1+ Platelet Estimate SIGNIFIC DECREASED Large Platelets 1+ Echinocytes 2+ Prothrombin Time 11.9 SECONDS Prothromb Time International Ratio 1.1 Activated Partial Thromboplast Time 34.6 SECONDS Partial Thromboplastin Ratio 1.3 Sodium Level 134 mmol/L 135 mmol/L Potassium Level 4.1 mmol/L 4.0 mmol/L Chloride Level 100 mmol/L 101 mmol/L Carbon Dioxide Level 20 mmol/L 20 mmol/L Anion Gap 14.0 mmol/L 14.0 mmol/L Blood Urea Nitrogen 91 mg/dl 94 mg/dl Creatinine 5.80 mg/dl 6.10 mg/dl Est Creatinine Clear Calc Drug Dose 11.7 ml/min 11.1 ml/min Estimated GFR () 9.9 9.3 Estimated GFR (Non- 8.5 8.0 BUN/Creatinine Ratio 15.7 15.4 Random Glucose 137 mg/dl 141 mg/dl Calcium Level 7.8 mg/dl 7.5 mg/dl Phosphorus Level 5.8 mg/dl Magnesium Level 2.4 mg/dl Total Bilirubin 1.2 mg/dl Direct Bilirubin 0.8 mg/dl Aspartate Amino Transf (AST/SGOT) 237 U/L Alanine Aminotransferase (ALT/SGPT) 103 U/L Alkaline Phosphatase 42 U/L Total Creatine Kinase 688 U/L Creatine Kinase MB 11.2 ng/ml Creatine Kinase MB Ratio 1.6 Troponin I 13.500 ng/ml Total Protein 5.4 gm/dl Albumin 2.5 gm/dl Test 12/22/16 14:00 Assessment and Plan (1) Ehrlichiosis Assessment & Plan: continue doxy, continue supportive care. fever improving. follow labs. Continued [facility] stay due to: fever, multiple IV medications needed Discharge planning: home
--- NOTE | 2016-12-22 14:54 | Family Medicine Progress Note ---
Progress Note Date of Service December 22, 2016. Subjective Voiding: dimas catheter in place 81-year-old male with past medical history of hypertension, BPH, asthma, GERD presented to the ER with complaints of fevers and chills started 3 days ago. He also noticed increased episodes of urinary incontinence and complained of fatigue and shortness of breath. He denied any chest pains, palpitations, dizziness, hematuria, bright red bleeding per rectum, melena. There was a concern of a left-sided facial droop and left leg weakness and he was evaluated for stroke with head CT, MRI brain, MRA brain without contrast on admission which were negative for any acute stroke. Had one episode of elevated temperature overnight . Doing better, breathing is better. Denies any headaches, chest pain, shortness of breath, palpitations with complaints of dizziness. Was incontinent of bowel this morning. Constitutional: + chills, + fever Eyes: No worsening of vision ENT: + hearing loss Respiratory: No cough, No shortness of breath, No wheezing Cardiovascular: No chest pain Breast: No breast lump Abdomen: No diarrhea, No nausea, No pain, No vomiting Musculoskeletal: No joint pain Male : No dysuria, No urinary frequency Neurologic: No memory loss Psychiatric: No depression symptoms Heme: No abnormal bleeding/bruising Medications Current Inpatient Medications Medications (Trade) Dose Ordered Sig/Sheree Route Start Time Stop Time Status Last Admin Dose Admin Sodium Chloride (Nss 1000ml) 1,000 ml @ 75 mls/hr [id number] IV 12/21/16 02:00 01/20/17 01:59 12/22/16 08:29 75 MLS/HR Acetaminophen (Tylenol Tab) 650 mg Q4H PRN PO 12/20/16 22:00 01/19/17 21:59 Nitroglycerin (Nitrostat Tab) 0.4 mg UD PRN SL 12/20/16 22:00 01/19/17 21:59 Alfuzosin HCl (Uroxatral Tab) 10 mg HS PO 12/21/16 21:00 01/20/17 20:59 12/21/16 19:54 10 MG Calcium/Vitamin D (Caltrate Plus Tab) 1 tab BID PO 12/21/16 09:00 01/20/17 08:59 12/22/16 09:35 1 TAB Cholecalciferol (Vitamin D Tab) 1,000 inter.unit DAILY PO 12/21/16 09:00 01/20/17 08:59 12/22/16 09:36 1,000 INTER.UNIT Duloxetine HCl (Cymbalta Cap) 60 mg DAILY PO 12/21/16 09:00 01/20/17 08:59 12/22/16 09:36 60 MG Levothyroxine Sodium (Synthroid Tab) 100 mcg DAILYBB PO 12/21/16 06:00 01/20/17 06:59 Metoprolol Succinate (Toprol Xl Tab) 50 mg DAILY PO 12/21/16 09:00 01/20/17 08:59 12/21/16 08:37 50 MG Polyethylene (Miralax Powder Packet) 17 gm HS PO 12/21/16 21:00 01/20/17 20:59 12/21/16 19:55 17 GM Ranitidine HCl (zANTac TAB) 150 mg HS PO 12/21/16 21:00 01/20/17 20:59 12/21/16 19:55 150 MG Simvastatin (Zocor Tab) 20 mg QPM PO 12/21/16 21:00 01/20/17 20:59 12/21/16 19:56 20 MG Loratadine (Claritin Tab) 10 mg QAM PRN PO 12/20/16 22:00 01/19/17 21:59 Miscellaneous Information (Order Awaiting Action) 1 ea QS N/A 12/21/16 00:00 01/20/17 00:00 Pantoprazole Sodium (Protonix Tab) 40 mg QAM PO 12/21/16 09:00 01/20/17 08:59 12/22/16 09:36 40 MG Miscellaneous Information (Order Awaiting Action) 1 ea QS N/A 12/21/16 00:00 01/20/17 00:00 Ondansetron HCl 4 mg 4 mg Q6H PRN IV 12/20/16 22:15 01/19/17 22:14 Doxycycline Hyclate 100 mg/ Dextrose 110 ml @ 50 mls/hr Q12H IV 12/21/16 15:30 12/31/16 15:29 12/22/16 03:39 50 MLS/HR Sodium Bicarbonate/ Sterile Water (Sodium Bicarbonate 8.4% Inj/Sterile Water 1000 ml) 1,150 ml @ 75 mls/hr [id number] IV 12/22/16 12:00 01/21/17 11:59 12/22/16 12:06 75 MLS/HR Objective Vital Signs Date Time Temp Pulse Resp B/P Pulse Ox O2 Delivery O2 Flow Rate FiO2 12/22/16 12:07 36.9 68 22 93/55 96 Nasal Cannula 2.0 12/22/16 09:36 92/57 12/22/16 08:09 36.3 80 20 90/49 98 Nasal Cannula 2.0 12/22/16 08:00 96 Nasal Cannula 2.0 12/22/16 04:09 36.4 80 26 92/54 96 Nasal Cannula 2.0 12/22/16 04:00 Nasal Cannula 2.0 12/22/16 00:11 36.4 83 25 94/57 94 Nasal Cannula 4.0 12/22/16 00:00 Nasal Cannula 4.0 12/21/16 20:00 94 Nasal Cannula 4.0 12/21/16 19:15 38.0 109 20 136/77 94 Nasal Cannula 4.0 12/21/16 16:00 95 Nasal Cannula 2.0 12/21/16 15:20 37.0 103 20 135/83 93 Nasal Cannula 4.0 Physical Exam General Appearance: WD/WN, no apparent distress Eyes: normal inspection ENT: normal ENT inspection, + pertinent finding (dry oral mucosa) Neck: supple Respiratory/Chest: chest non-tender, lungs clear, + decreased breath sounds Cardiovascular: + tachycardia Abdomen: normal bowel sounds, non tender, soft Extremities: normal range of motion, no calf tenderness Neurologic/Psychiatric: oriented x 3, + pertinent finding (drowsy) Skin: normal color Laboratory Results 12/22/16 08:23 Red Blood Count 3.61, Mean Corpuscular Volume 88.1, Mean Corpuscular Hemoglobin 30.5, Mean Corpuscular Hemoglobin Concent 34.6, Neutrophils (%) (Auto) 78.3, Lymphocytes (%) (Auto) 14.1, Monocytes (%) (Auto) 5.2, Eosinophils (%) (Auto) 0.0, Basophils (%) (Auto) 0.8, Neutrophils # (Auto) 2.88, Lymphocytes # (Auto) 0.52, Monocytes # (Auto) 0.19, Eosinophils # (Auto) 0.00, Basophils # (Auto) 0.03 Test 12/21/16 16:05 12/22/16 08:23 12/22/16 09:53 12/22/16 14:28 Lyme Disease IgG Antibody NEG (NEG) White Blood Count 3.68 K/uL (4.8-10.8) Red Blood Count 3.61 M/uL (4.7-6.1) Hemoglobin 11.0 g/dL (14.0-18.0) Hematocrit 31.8 % (42-52) Mean Corpuscular Volume 88.1 fL (80-100) Mean Corpuscular Hemoglobin 30.5 pg (25-34) Mean Corpuscular Hemoglobin Concent 34.6 g/dl (32-36) Platelet Count 20 K/uL (130-400) Neutrophils (%) (Auto) 78.3 % Lymphocytes (%) (Auto) 14.1 % Monocytes (%) (Auto) 5.2 % Eosinophils (%) (Auto) 0.0 % Basophils (%) (Auto) 0.8 % Neutrophils # (Auto) 2.88 K/uL (1.4-6.5) Lymphocytes # (Auto) 0.52 K/uL (1.2-3.4) Monocytes # (Auto) 0.19 K/uL (0.11-0.59) Eosinophils # (Auto) 0.00 K/uL (0-0.5) Basophils # (Auto) 0.03 K/uL (0-0.2) RDW Standard Deviation 48.2 fL (36.4-46.3) RDW Coefficient of Variation 14.8 % (11.5-14.5) Immature Granulocyte % (Auto) 1.6 % Immature Granulocyte # (Auto) 0.06 K/uL (0.00-0.02) Toxic Vacuolation 1+ Platelet Estimate SIGNIFIC DECREASED Large Platelets 1+ Echinocytes 2+ Prothrombin Time 11.9 SECONDS (9.0-12.0) Prothromb Time International Ratio 1.1 (0.9-1.1) Activated Partial Thromboplast Time 34.6 SECONDS (21.0-31.0) Partial Thromboplastin Ratio 1.3 Phosphorus Level 5.8 mg/dl (2.5-4.9) Magnesium Level 2.4 mg/dl (1.8-2.4) Total Bilirubin 1.2 mg/dl (0.2-1) Direct Bilirubin 0.8 mg/dl (0-0.2) Aspartate Amino Transf (AST/SGOT) 237 U/L (15-37) Alanine Aminotransferase (ALT/SGPT) 103 U/L (12-78) Alkaline Phosphatase 42 U/L (45-117) Total Creatine Kinase 688 U/L (39-308) Creatine Kinase MB 11.2 ng/ml (0.5-3.6) Creatine Kinase MB Ratio 1.6 (0-3.0) Troponin I 13.500 ng/ml (0-0.045) Total Protein 5.4 gm/dl (6.4-8.2) Albumin 2.5 gm/dl (3.4-5.0) Est Creatinine Clear Calc Drug Dose 11.1 ml/min Assessment and Plan 81-year-old male with past medical history of hypertension, BPH, asthma, GERD presented to the ER with complaints of fevers and chills started 3 days ago. He also noticed increased episodes of urinary incontinence and complained of fatigue and shortness of breath. He had been febrile overnight with tachycardia. Also had developed increased work of breathing over the day. He was evaluated for a potential TTP, consumptive coagulopathy , atypical HUS. Peripheral smear was obtained which revealed inclusion bodies consistent with ehrlichia/anaplasmosis Febrile with leukopenia and thrombocytopenia : - UA significant for 3+ occult blood, 5-10 RBCs hpf - Urine culture pending - Blood culture pending( but had received Zosyn) - Peripheral smear revealed ehrlichia/ anaplasmosis Ehrlichiosis: - Peripheral smear: Inclusion bodies consistent with ehrlichia/anaplasmosis - Thrombocytopenia, elevated liver enzymes - Started on 100 mg doxycycline twice a day - Lyme serology negative - Infectious diseases consult- appreciate recommendations - Ehrlichia abs , anaplasmosis abs pending Elevated troponins:? Myocarditis though he does not have any EKG findings or findings on echo - EKG on presentation: Sinus tachycardia Possible Left atrial enlargement Nonspecific ST and T wave abnormality Abnormal ECG When compared with ECG of Aug-2015 06:39, T wave inversion no longer evident in Anterolateral leads - EKG 12/22: Sinus rhythm with Premature atrial complexes Otherwise normal ECG When compared with ECG of 21-DEC-2016 06:20, Premature atrial complexes are now Present Nonspecific T wave abnormality no longer evident in Lateral leads - Initial troponin 13-->14.2--> 17--->18.5-->13.5 - Echo ordered with concerns of bacterial endocarditis and for wall motion abnormalities: 12/21: * The left ventricle is hyperdynamic. * No obvious wall motion abnormality. * Ejection Fraction = >70 %. * There is mild concentric left ventricular hypertrophy. * Grade I diastolic dysfunction, (abnormal relaxation pattern). * No significant valvular pathology -Cardiology consult- appreciate recommendations -No cardiac cath planned for now considering elevated creatinine - Trended daily troponin Hypotension: - Mild drop in blood pressure, running in 90s systolic - got 1 L of NaHCO3 , Ok to give 250-500 ml bolus if BP drops overnight - Monitor blood pressure SHAMIR: Likely secondary to ATN - Creatinine on presentation at 3, today 5.8-->6.1 Baseline 1 - IV fluids switched to sodium bicarbonate in water( 150 meq) at 75 mls/hr - Nephrology consult- appreciate recommendations - UA microscopic in a.m. - FeNa in AM Thrombocytopenia: - Platelets on presentation 47-->30-->24-->20 - No active bleeding - Hematology consult- appreciate recommendations - Transfusion if drops less than 20 - Elevated liver enzymes Left sided facial droop: - Was worked up for stroke with head CT, MRI which were unremarkable - Carotid ultrasound revealed right external carotid stenosis 50-69% -Aspirin held due to low platelets - Recheck Lyme serology upon discharge Tachycardia: - Likely secondary to fever/dehydration -Monitor in telemetry Hypertension: - Losartan and hydrochlorothiazide currently held due to concerns of elevated creatinine Hypothyroidism: Continue Synthroid Peripheral neuropathy: - Gabapentin held GERD: - Continue home meds COPD -Continue nebs as needed BPH: - Continue finasteride, alfuzosin Depression - continue Cymbalta DVT prophylaxis: SCDs Full code Resident Tracking Resident Involvement: Resident Care Provided Care Provided: Adult Hospital Medicine Reviewed: Pt Seen/Exam by Me History denies any concerns Constitutional: denies: fever Respiratory: negative: short of breath Cardiovascular: denies chest pain General Appearance: no apparent distress (drowsy but arousable and appropriately responsive) Respiratory: lungs clear, no respiratory distress Cardiovascular: regular rate, rhythm Neurologic/Psychiatric: alert, oriented x 3, other (left facial droop) Skin Characteristics: warm/dry Assessment/Plan I have reviewed the medical record and performed a history and physical examination of this patient today. I have discussed the case with Dr. Justin. The above note reflects my findings, conclusions, and recommendations.
[2016-12-22 14:59] LABS: PLATELET COUNT 19 K/uL (130-400)
[2016-12-22 15:44] LABS: CALCIUM 7.2 mg/dl (8.5-10.1); CREATININE 6.4 mg/dl (0.60-1.40); POTASSIUM 4.1 mmol/L (3.5-5.1)
[2016-12-22] MEDS ORDERED: NURSING VERBAL MED ORDER ONE ×2 (18:45)
[2016-12-22 20:26] LABS: MANUAL MICROSCOPIC REQUIRED? YES; URINE APPEARANCE CLOUDY (CLEAR); URINE BILIRUBIN NEG (NEG); URINE COLOR BROWN; URINE NITRITE NEG (NEG); URINE SPECIFIC GRAVITY 1.025 (1.000-1.030); UROBILINOGEN NEG (NEG)
[2016-12-22 20:35] LABS: REVIEW REQ? NO
[2016-12-22] MEDS: SIMVASTATIN 20 MG TAB PO SCH (20:46)
[2016-12-22] MEDS: RANITIDINE HCL 150 MG TAB PO SCH (20:46)
[2016-12-22] MEDS: POLYETHYLENE (MIRALAX) 17 GM PACK PO SCH (20:46)
[2016-12-22] MEDS: ALFUZosin TAB 10 MG TAB PO SCH (20:46)
[2016-12-22 20:47] LABS: URINE RBC >30 /hpf (0-4)
[2016-12-22 20:49] LABS: URINE BACTERIA NEG (NEG)
[2016-12-23] VITALS (7 sets, daily range): BP systolic 99–129; BP diastolic 56–89; PULSE 71–86; TEMP 36.4–36.7; O2SAT 96–98
[2016-12-23] MEDS ORDERED: PIPERACILL/TAZOBAC IV 3.375 GM in DEXTROSE 5% 100ML IV SCH ×2
[2016-12-23] MEDS: DOXYCYCLINE IV 100 MG in DEXTROSE 5% 100ML 100 ML IV SCH ×2 (03:52→16:38)
[2016-12-23] MEDS: LEVOTHYROXINE 100 MCG TAB PO SCH (06:16)
[2016-12-23 06:56] LABS: INR 1.1 (0.9-1.1); PARTIAL THROMBOPLASTIN RATIO 1.2; PROTHROMBIN TIME (PATIENT) 11.7 SECONDS (9.0-12.0)
[2016-12-23 07:30] LABS: BUN/CREATININE RATIO 16.5 (10-20); CREATININE 7.2 mg/dl (0.60-1.40); MAGNESIUM 2.5 mg/dl (1.8-2.4); POTASSIUM 3.7 mmol/L (3.5-5.1)
[2016-12-23] MEDS: AVODART~ORDER AWAITING ACTION SCH ×2 (08:00→16:00)
[2016-12-23 08:08] LABS: HEMATOCRIT 31.3 % (42-52); MEAN CELL VOLUME 86.2 fL (80-100); MEAN CORPUSCULAR HGB CONC 34.8 g/dl (32-36); PLATELET COUNT 29 K/uL (130-400); RED BLOOD COUNT 3.63 M/uL (4.7-6.1); WHITE BLOOD COUNT 4.45 K/uL (4.8-10.8)
[2016-12-23] MEDS: CALCIUM 600MG + VIT D 400 IU TAB PO SCH ×2 (08:49→20:31)
[2016-12-23] MEDS: DULOXETINE HCL 60 MG CAP PO SCH (08:49)
[2016-12-23] MEDS: METOPROLOL SUCC 50MG EXT REL TAB PO SCH (08:49)
--- NOTE | 2016-12-23 09:19 | Hematology/Oncology Prog Note ---
Hematology/Onc Progress Note Date of Service December 23, 2016. 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 Coagulopathy Thrombocytopenia Medications Much more alert. Denies headache except for chronic neuritic pain from a prior herpetic infection. Afebrile Subjective Seems to be doing fairly well. He was asleep when I walked in the room but easily aroused and oriented 2-1/2. Denies any new pain or shortness of breath. There has been no overt bleeding. Review of Systems: Constitutional: Negative for night sweats, or recent fever during the past 24- 36 hours Eyes: Negative for event change of vision ENT: Negative for epistaxis, nasal discharge, sore throat, or deafness Cardiovascular: Negative for chest pain, palpitations, dizziness, diaphoresis Respiratory: Negative for new shortness of breath,hemoptysis, or purulent cough Gastrointestinal: Negative for diarrhea, hematemesis, melena, nausea, vomiting , or dyspepsia Integumentary (skin): Negative for rash or jaundice discoloration Genitourinary: Negative for urinary frequency, hematuria, or dysuria Neurological: Negative for weakness, seizure activity, headache, or dizziness Lymphatic/Hematologic: Negative for petechiae, bleeding or new adenopathy Musculoskeletal: Negative for new joint or back pain Allergic/Immunologic: Negative for unusual rash or pruritis. Vital Signs Vital Signs Past 12 Hours Date Time Temp Pulse Resp B/P Pulse Ox O2 Delivery O2 Flow Rate FiO2 12/23/16 07:36 36.5 86 22 105/61 96 Nasal Cannula 2.0 12/23/16 04:00 Nasal Cannula 2.0 12/23/16 03:23 36.4 84 23 99/56 97 Nasal Cannula 2.0 12/23/16 00:00 Nasal Cannula 2.0 12/22/16 23:36 36.3 71 20 107/62 97 Nasal Cannula 2.0 Physical Exam Constitutional: vitals are stable. Oriented 3. Conversation is very spontaneous Eyes: Eyes are BRANDON EOMI without conjuctival erythema or icterus. ENT: External examination was negative for masses. Neck: Negative for masses or palpable thyromegaly Respiratory: Lung sounds were generally clear bilaterally Cardiovascular: Heart was RRR without significant murmur, gallops aoe rubs Gastrointestinal: No palpable hepatic or splenomegaly. The abdomen was soft with normal bowel sounds. Lymphatic system: there was no palpable peripheral lymphadenopathy Musculoskeletal System: The musculoskeletal system seemed concordant with age. Skin: The skin was negative for jaundice. Neurologic exam: The exam was negative for any focal findings. Deep tendon reflexes were equal and symmetrical. Psychiatric exam: Was essentially negative with normal mood and effect. Extremities: Negative for edema Genitourinary: Urine does look dark and even blood-tinged Laboratory Last 24 Hours Test 12/22/16 09:53 12/22/16 14:28 12/22/16 19:45 12/23/16 06:35 Sodium Level 135 mmol/L 136 mmol/L 134 mmol/L Potassium Level 4.0 mmol/L 4.1 mmol/L 3.7 mmol/L Chloride Level 101 mmol/L 101 mmol/L 96 mmol/L Carbon Dioxide Level 20 mmol/L 22 mmol/L 23 mmol/L Anion Gap 14.0 mmol/L 13.0 mmol/L 15.0 mmol/L Blood Urea Nitrogen 94 mg/dl 102 mg/dl 118 mg/dl Creatinine 6.10 mg/dl 6.40 mg/dl 7.20 mg/dl Est Creatinine Clear Calc Drug Dose 11.1 ml/min 10.6 ml/min 9.5 ml/min Estimated GFR () 9.3 8.8 7.6 Estimated GFR (Non- 8.0 7.6 6.6 BUN/Creatinine Ratio 15.4 16.0 16.5 Random Glucose 141 mg/dl 123 mg/dl 86 mg/dl Calcium Level 7.5 mg/dl 7.2 mg/dl 7.0 mg/dl Platelet Count 19 K/uL 29 K/uL Urine Color BROWN Urine Appearance CLOUDY Urine pH 5.0 Urine Specific [place] 1.025 Urine Protein 2+ Urine Glucose (UA) NEG Urine Ketones NEG Urine Occult Blood 3+ Urine Nitrite NEG Urine Bilirubin NEG Urine Urobilinogen NEG Urine Leukocyte Esterase TRACE Urine RBC >30 /hpf Urine WBC 10-30 /hpf Urine Epithelial Cells 5-10 /lpf Urine Bacteria NEG Urine Random Creatinine 120.0 mg/dl Urine Random Sodium 29 mEq/L White Blood Count 4.45 K/uL Red Blood Count 3.63 M/uL Hemoglobin 10.9 g/dL Hematocrit 31.3 % Mean Corpuscular Volume 86.2 fL Mean Corpuscular Hemoglobin 30.0 pg Mean Corpuscular Hemoglobin Concent 34.8 g/dl Mean Platelet Volume 11.0 fL RDW Standard Deviation 46.7 fL RDW Coefficient of Variation 14.6 % Prothrombin Time 11.7 SECONDS Prothromb Time International Ratio 1.1 Activated Partial Thromboplast Time 30.1 SECONDS Partial Thromboplastin Ratio 1.2 Magnesium Level 2.5 mg/dl Total Bilirubin 1.0 mg/dl Direct Bilirubin 0.5 mg/dl Aspartate Amino Transf (AST/SGOT) 165 U/L Alanine Aminotransferase (ALT/SGPT) 92 U/L Alkaline Phosphatase 40 U/L Troponin I 8.080 ng/ml Total Protein 5.0 gm/dl Albumin 2.1 gm/dl Assessment & Plan 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 PT PTT are acceptable and normal. Urine does look mildly blood tinged but otherwise no overt bleeding. Rest of CBC is acceptable. Creatinine continues to climb however. No transfusions plan from our standpoint. He continues to be afebrile on doxycycline. We'll continue to follow with you.
[2016-12-23 09:22] LABS: BASO % 2.9 %; BASO ABS # 0.13 K/uL (0-0.2); COMPLETE YES; ECHINOCYTES 2+; EOS % 1.6 %; GIANT PLATELETS 1+; IG% 1.1 %; LYMPH ABS # 1.29 K/uL (1.2-3.4); MONO % 7.6 %; NEUT % 57.8 %; VACUOLIZATION 1+
[2016-12-23] MEDS: CHOLECALCIFEROL 1000 INTER.UNIT TAB PO SCH (09:23)
[2016-12-23] MEDS: PANTOprazole SOD 40 MG TAB PO SCH (09:23)
[2016-12-23] MEDS ORDERED: COUGH DROP (SUGAR FREE) LOZ 24 LOZ/1 BOX ONE (09:25)
--- NOTE | 2016-12-23 09:52 | Cardiology Follow-Up ---
Subjective Date of Service: December 23, 2016. Pt evaluation today including: conversation w/ patient, physical exam, lab review, review of studies, review of inpatient medication list History of Present Illness He seems to be feeling better today, is in good spirits. Is awake and alert in bed. No specific complaints. Social History Smoking Status: Never Smoker History of Alcohol Use: Yes (6 beers per week) Review of Systems Respiratory: No cough, No shortness of breath, No wheezing Cardiac: No chest pain Medications Cardiovascular: Item Value Date Time Simvastatin 20 mg 12/21/16 2100 (Zocor Tab) QPM/PO 12/22/162045 Metoprolol 50 mg 12/21/16 0900 Succinate DAILY/PO 12/23/16 0849 (Toprol Xl Tab) Objective Vital Signs Past 12 Hours Date Time Temp Pulse Resp B/P Pulse Ox O2 Delivery O2 Flow Rate FiO2 12/23/16 08:00 Nasal Cannula 2.0 12/23/16 07:36 36.5 86 22 105/61 96 Nasal Cannula 2.0 12/23/16 04:00 Nasal Cannula 2.0 12/23/16 03:23 36.4 84 23 99/56 97 Nasal Cannula 2.0 12/23/16 00:00 Nasal Cannula 2.0 12/22/16 23:36 36.3 71 20 107/62 97 Nasal Cannula 2.0 Last Recorded Weight-Kilograms: 100.000 Intake & Output 8-Hour Column 12/22/16 12/23/16 12/23/16 16:00 00:00 08:00 Intake Total 840 ml 937 ml 593 ml Output Total 25 ml 50 ml Balance 815 ml 937 ml 543 ml 24-Hour Column 12/23/16 08:00 Intake Total 2370 ml Output Total 75 ml Balance 2295 ml Physical Exam Constitutional: Level of Distress: NAD Lungs: Auscultation: breath sounds normal Cardiovascular: Heart Auscultation: RRR, no murmurs Data Laboratory Results: Last 24 Hours Test 12/22/16 09:53 12/22/16 14:28 12/22/16 19:45 12/23/16 06:35 Sodium Level 135 mmol/L 136 mmol/L 134 mmol/L Potassium Level 4.0 mmol/L 4.1 mmol/L 3.7 mmol/L Chloride Level 101 mmol/L 101 mmol/L 96 mmol/L Carbon Dioxide Level 20 mmol/L 22 mmol/L 23 mmol/L Anion Gap 14.0 mmol/L 13.0 mmol/L 15.0 mmol/L Blood Urea Nitrogen 94 mg/dl 102 mg/dl 118 mg/dl Creatinine 6.10 mg/dl 6.40 mg/dl 7.20 mg/dl Est Creatinine Clear Calc Drug Dose 11.1 ml/min 10.6 ml/min 9.5 ml/min Estimated GFR () 9.3 8.8 7.6 Estimated GFR (Non- 8.0 7.6 6.6 BUN/Creatinine Ratio 15.4 16.0 16.5 Random Glucose 141 mg/dl 123 mg/dl 86 mg/dl Calcium Level 7.5 mg/dl 7.2 mg/dl 7.0 mg/dl Platelet Count 19 K/uL 29 K/uL Urine Color BROWN Urine Appearance CLOUDY Urine pH 5.0 Urine Specific [place] 1.025 Urine Protein 2+ Urine Glucose (UA) NEG Urine Ketones NEG Urine Occult Blood 3+ Urine Nitrite NEG Urine Bilirubin NEG Urine Urobilinogen NEG Urine Leukocyte Esterase TRACE Urine RBC >30 /hpf Urine WBC 10-30 /hpf Urine Epithelial Cells 5-10 /lpf Urine Bacteria NEG Urine Random Creatinine 120.0 mg/dl Urine Random Sodium 29 mEq/L White Blood Count 4.45 K/uL Red Blood Count 3.63 M/uL Hemoglobin 10.9 g/dL Hematocrit 31.3 % Mean Corpuscular Volume 86.2 fL Mean Corpuscular Hemoglobin 30.0 pg Mean Corpuscular Hemoglobin Concent 34.8 g/dl Mean Platelet Volume 11.0 fL Neutrophils (%) (Auto) 57.8 % Lymphocytes (%) (Auto) 29.0 % Monocytes (%) (Auto) 7.6 % Eosinophils (%) (Auto) 1.6 % Basophils (%) (Auto) 2.9 % Neutrophils # (Auto) 2.57 K/uL Lymphocytes # (Auto) 1.29 K/uL Monocytes # (Auto) 0.34 K/uL Eosinophils # (Auto) 0.07 K/uL Basophils # (Auto) 0.13 K/uL RDW Standard Deviation 46.7 fL RDW Coefficient of Variation 14.6 % Immature Granulocyte % (Auto) 1.1 % Immature Granulocyte # (Auto) 0.05 K/uL Toxic Vacuolation 1+ Giant Platelets 1+ Echinocytes 2+ Prothrombin Time 11.7 SECONDS Prothromb Time International Ratio 1.1 Activated Partial Thromboplast Time 30.1 SECONDS Partial Thromboplastin Ratio 1.2 Magnesium Level 2.5 mg/dl Total Bilirubin 1.0 mg/dl Direct Bilirubin 0.5 mg/dl Aspartate Amino Transf (AST/SGOT) 165 U/L Alanine Aminotransferase (ALT/SGPT) 92 U/L Alkaline Phosphatase 40 U/L Troponin I 8.080 ng/ml Total Protein 5.0 gm/dl Albumin 2.1 gm/dl EKG: Sinus rhythm with premature atrial beats Telemetry reviewed: Sinus rhythm with premature atrial beats, no significant arrhythmia Assessment and Plan #1. Elevated cardiac enzymes: The cause of this remains uncertain, although his troponin was quite elevated it has now trended down, despite a rising creatinine. This is consistent with no ongoing cardiac injury. Not likely that this was a large vessel ischemic event, probably small vessel and probably diffuse based on lack of wall motion abnormalities. Perhaps this is part of a DIC picture with diffuse myocardial injury. At the moment I would not pursue further evaluation, we probably will want to do a stress echo prior to discharge. #2. Acute renal disease: As far as I know he does not have chronic renal insufficiency, his acute kidney injury and the rising creatinine is evidently related to his presentation. I don't believe he is dehydrated and would be cautious about fluid. If his kidney function continues to worsen however we may have difficulty removing fluid. #3. Left sided facial droop: I have known him for many years and has never noticed this before, it was obvious to me when I saw him in his room. I believe this is new, despite the negative MRI and CAT scan. It evidently is not a large stroke since it was not seen on CT or MRI, perhaps it is small lesions as well. I would defer to neurology as to the cause. If we do identify embolic phenomenon we may have to consider JUAN, to my knowledge she does not have a history of atrial fibrillation or any other reason for embolization. Thank you for allowing me to participate in his care.
--- NOTE | 2016-12-23 09:53 | Clinical Documentation Query ---
CLINICAL DOCUMENTATION QUERY Query #1/3 NSTEMI was well documented on H&P but has since fallen of the record. Ehrlichiosis with DIC are underling factors. Troponin's continue to climb In your clinical opinion is this patient being managed for: ( ) NSTEMI in setting of Ehrlichiosis with DIC with massive clotting ( x) Not Agree Query #2/3 Possible DIC has been documented on H&P and shortly by cardiology. The patient certainly exhibits clinical indicators for it with low platelets, signs of massive clotting, end organ involvement and underlying triggering infection of Ehrlichiosis. In your clinical opinion is this patient being managed for: ( ) Disseminated intravascular coagulation (DIC) ( x ) Not Agree Query #3/3 Cardiology makes mention of a small stroke not seen by imaging. In your clinical opinion is this patient being managed for: ( ) Small CVA in setting of DIC due to underling Ehrlichiosis infection. ( x ) Not Agree Please clarify and document your clinical opinion in the progress notes and discharge summary. Terms such as "probable", "suspected", "likely", "questionable", "possible", or "still to be ruled out" are acceptable. IF IN AGREEMENT, YOU MUST DOCUMENT ABOVE DIAGNOSTIC STATEMENT IN DAILY PROGRESS NOTES AND DISCHARGE SUMMARY. This document is not part of the patient's record. Thank You, Darian Camacho, RN [phone]
--- NOTE | 2016-12-23 10:41 | Nephrology Progress Note ---
Nephrology Progress Note Date of Service December 23, 2016. Chief Complaint Acute renal insufficiency Subjective No acute events overnight. Kane is more awake this morning. He feels well. Appetite improving. No fevers or chills. He denies shortness of breath. He feels very tired. He denies chest pain. He has not experienced any palpitations. He denies headache. No bleeding reported. We discussed SHAMIR in detail today. We reviewed the hemodialysis procedure and discussed indications for dialysis. Information was also discussed with his daughter, Renetta, at his request. Review of Systems A complete review of systems was performed. Pertinent positives are noted above. All other systems are negative. Vital Signs Last 8 Hrs Date Time Temp Pulse Resp B/P Pulse Ox O2 Delivery O2 Flow Rate FiO2 12/23/16 08:00 Nasal Cannula 2.0 12/23/16 07:36 36.5 86 22 105/61 96 Nasal Cannula 2.0 12/23/16 04:00 Nasal Cannula 2.0 12/23/16 03:23 36.4 84 23 99/56 97 Nasal Cannula 2.0 I & O 24-Hour Column 12/23/16 08:00 Intake Total 2370 ml Output Total 75 ml Balance 2295 ml Last Recorded Weight Weight (Kilograms): 100.000 Physical Exam General Appearance: no apparent distress, + obese Head: normocephalic, atraumatic Eyes: normal inspection, sclerae normal ENT: normal ENT inspection, pharynx normal Neck: supple, no JVD Respiratory/Chest: lungs clear, no respiratory distress, no accessory muscle use Cardiovascular: regular rate, rhythm, no gallop Abdomen/GI: non tender, soft Extremities/Musculoskelatal: normal inspection, no pedal edema Neurologic/Psych: alert, oriented x 3 Family History Patient reports no known family medical history. 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: retired Laboratory Results Past 24 Hours 12/22/16 14:28 12/23/16 06:35 Red Blood Count 3.63, Mean Corpuscular Volume 86.2, Mean Corpuscular Hemoglobin 30.0, Mean Corpuscular Hemoglobin Concent 34.8, Mean Platelet Volume 11.0, Neutrophils (%) (Auto) 57.8, Lymphocytes (%) (Auto) 29.0, Monocytes (%) (Auto) 7.6, Eosinophils (%) (Auto) 1.6, Basophils (%) (Auto) 2.9, Neutrophils # (Auto) 2.57, Lymphocytes # (Auto) 1.29, Monocytes # (Auto) 0.34, Eosinophils # (Auto) 0.07, Basophils # (Auto) 0.13 12/22/16 14:28 12/23/16 06:35 Test 12/22/16 14:28 12/22/16 19:45 12/23/16 06:35 Anion Gap 13.0 mmol/L (3-11) 15.0 mmol/L (3-11) Est Creatinine Clear Calc Drug Dose 10.6 ml/min 9.5 ml/min Estimated GFR () 8.8 7.6 Estimated GFR (Non- 7.6 6.6 BUN/Creatinine Ratio 16.0 (10-20) 16.5 (10-20) Calcium Level 7.2 mg/dl (8.5-10.1) 7.0 mg/dl (8.5-10.1) Urine Color BROWN Urine Appearance CLOUDY (CLEAR) Urine pH 5.0 (4.5-7.5) Urine Specific [place] 1.025 (1.000-1.030) Urine Protein 2+ (NEG) Urine Glucose (UA) NEG (NEG) Urine Ketones NEG (NEG) Urine Occult Blood 3+ (NEG) Urine Nitrite NEG (NEG) Urine Bilirubin NEG (NEG) Urine Urobilinogen NEG (NEG) Urine Leukocyte Esterase TRACE (NEG) Urine RBC >30 /hpf (0-4) Urine WBC 10-30 /hpf (0-5) Urine Epithelial Cells 5-10 /lpf (0-5) Urine Bacteria NEG (NEG) Urine Random Creatinine 120.0 mg/dl Urine Random Sodium 29 mEq/L White Blood Count 4.45 K/uL (4.8-10.8) Red Blood Count 3.63 M/uL (4.7-6.1) Hemoglobin 10.9 g/dL (14.0-18.0) Hematocrit 31.3 % (42-52) Mean Corpuscular Volume 86.2 fL (80-100) Mean Corpuscular Hemoglobin 30.0 pg (25-34) Mean Corpuscular Hemoglobin Concent 34.8 g/dl (32-36) Platelet Count 29 K/uL (130-400) Mean Platelet Volume 11.0 fL (7.4-10.4) Neutrophils (%) (Auto) 57.8 % Lymphocytes (%) (Auto) 29.0 % Monocytes (%) (Auto) 7.6 % Eosinophils (%) (Auto) 1.6 % Basophils (%) (Auto) 2.9 % Neutrophils # (Auto) 2.57 K/uL (1.4-6.5) Lymphocytes # (Auto) 1.29 K/uL (1.2-3.4) Monocytes # (Auto) 0.34 K/uL (0.11-0.59) Eosinophils # (Auto) 0.07 K/uL (0-0.5) Basophils # (Auto) 0.13 K/uL (0-0.2) RDW Standard Deviation 46.7 fL (36.4-46.3) RDW Coefficient of Variation 14.6 % (11.5-14.5) Immature Granulocyte % (Auto) 1.1 % Immature Granulocyte # (Auto) 0.05 K/uL (0.00-0.02) Toxic Vacuolation 1+ Giant Platelets 1+ Echinocytes 2+ Prothrombin Time 11.7 SECONDS (9.0-12.0) Prothromb Time International Ratio 1.1 (0.9-1.1) Activated Partial Thromboplast Time 30.1 SECONDS (21.0-31.0) Partial Thromboplastin Ratio 1.2 Magnesium Level 2.5 mg/dl (1.8-2.4) Total Bilirubin 1.0 mg/dl (0.2-1) Direct Bilirubin 0.5 mg/dl (0-0.2) Aspartate Amino Transf (AST/SGOT) 165 U/L (15-37) Alanine Aminotransferase (ALT/SGPT) 92 U/L (12-78) Alkaline Phosphatase 40 U/L (45-117) Troponin I 8.080 ng/ml (0-0.045) Total Protein 5.0 gm/dl (6.4-8.2) Albumin 2.1 gm/dl (3.4-5.0) Allergies Coded Allergies: Erythromycin (Verified Allergy, Intermediate, THROAT BEGAN TO SWELL SHUT, 09/04/15) PT Lisinopril (Verified Adverse Reaction, Intermediate, COUGH, 09/04/15) Atorvastatin (Verified Adverse Reaction, Unknown, MYALGIAS, 09/04/15) PT/ALLSCRIPTS Medications Current Inpatient Medications Medications (Trade) Dose Ordered Sig/Sheree Route Start Time Stop Time Status Last Admin Dose Admin Acetaminophen (Tylenol Tab) 650 mg Q4H PRN PO 12/20/16 22:00 01/19/17 21:59 Nitroglycerin (Nitrostat Tab) 0.4 mg UD PRN SL 12/20/16 22:00 01/19/17 21:59 Alfuzosin HCl (Uroxatral Tab) 10 mg HS PO 12/21/16 21:00 01/20/17 20:59 12/22/16 20:46 10 MG Calcium/Vitamin D (Caltrate Plus Tab) 1 tab BID PO 12/21/16 09:00 01/20/17 08:59 12/23/16 08:49 1 TAB Cholecalciferol (Vitamin D Tab) 1,000 inter.unit DAILY PO 12/21/16 09:00 01/20/17 08:59 12/23/16 09:23 1,000 INTER.UNIT Duloxetine HCl (Cymbalta Cap) 60 mg DAILY PO 12/21/16 09:00 01/20/17 08:59 12/23/16 08:49 60 MG Levothyroxine Sodium (Synthroid Tab) 100 mcg DAILYBB PO 12/21/16 06:00 01/20/17 06:59 12/23/16 06:16 100 MCG Metoprolol Succinate (Toprol Xl Tab) 50 mg DAILY PO 12/21/16 09:00 01/20/17 08:59 12/23/16 08:49 50 MG Polyethylene (Miralax Powder Packet) 17 gm HS PO 12/21/16 21:00 01/20/17 20:59 12/22/16 20:46 17 GM Ranitidine HCl (zANTac TAB) 150 mg HS PO 12/21/16 21:00 01/20/17 20:59 12/22/16 20:46 150 MG Simvastatin (Zocor Tab) 20 mg QPM PO 12/21/16 21:00 01/20/17 20:59 12/22/16 20:46 20 MG Loratadine (Claritin Tab) 10 mg QAM PRN PO 12/20/16 22:00 01/19/17 21:59 Miscellaneous Information (Order Awaiting Action) 1 ea QS N/A 12/21/16 00:00 01/20/17 00:00 Pantoprazole Sodium (Protonix Tab) 40 mg QAM PO 12/21/16 09:00 01/20/17 08:59 12/23/16 09:23 40 MG Miscellaneous Information (Order Awaiting Action) 1 ea QS N/A 12/21/16 00:00 01/20/17 00:00 Ondansetron HCl 4 mg 4 mg Q6H PRN IV 12/20/16 22:15 01/19/17 22:14 Doxycycline Hyclate/Dextrose (Vibramycin IV/ D5 100ml) 110 ml @ 50 mls/hr Q12H IV 12/21/16 15:30 12/31/16 15:29 12/23/16 03:52 50 MLS/HR Impression (1) Acute renal insufficiency (2) Ehrlichiosis (3) Trigeminal neuralgia (4) Thrombocytopenia (5) Elevation of cardiac enzymes (6) Hypertension Kane Bell is a 81-year-old male with hypertension, 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 He presented to [facility] with fevers, chills, urinary incontinence, generalized weakness, shortness of breath and left facial droop. Clinical diagnosis ehrlichiosis based on intracellular inclusions seen on peripheral smear. Clinical improvement noted with doxycycline. Unfortunately no evidence of renal recovery. He has progressive acute renal insufficiency consistent with ATN. He continues to have hematuria and WBC's in his urine. I cannot completely exclude potential GN but clinical presentation suggests that this is unlikely. Urine output decreased. Bynum draining dark concentrated urine. Baseline creatinine 1.1 milligram/deciliter. Metabolic profile otherwise within normal limits. Troponin elevated but dropping. No acute changes on EKG. TTE showed mild concentric LVH with hyperdynamic LV function and type 1 diastolic dysfunction. Thrombocytopenia persists. Urine analysis is notable for proteinuria and granular casts. This is consistent with ATN. Microscopy revealing a few RBCs and WBCs. CT abdomen showed normal appearing kidneys without evidence of obstruction. Recommendations -- Repeat metabolic profile tomorrow AM -- Document I/O's -- Continue to hold gabapentin, HCTZ and Losartan -- Potassium restrict diet -- Medications otherwise appropriate for renal function -- Document I/O's, maintain slightly positive fluid balance
--- NOTE | 2016-12-23 11:50 | Progress Note ---
Subjective Date of Service: December 23, 2016. Subjective Pt evaluation today including: conversation w/ patient, physical exam, chart review, lab review pt much more awake today but still lethargic at times during exam, arousable. No fevers overnight. tolerating doxy. cultures remain negative, zosyn stopped. he denies call, no sob, no cp, no abd pain. creat increased today, nephro following. LFTs, wbc, cpk, trop improving. platelets improved but did receive transfusion yesterday one unit. Denies any recent tick bites/rashes. serologies pending. All remaining ros reviewed and are negative. Problem List Medical Problems: (1) Dyspnea on exertion Status: Acute (2) Elevated troponin Status: Acute (3) Left shoulder pain Status: Acute (4) Stroke-like symptoms Status: Acute Objective Vital Signs Date Time Temp Pulse Resp B/P Pulse Ox O2 Delivery O2 Flow Rate FiO2 12/23/16 08:00 Nasal Cannula 2.0 12/23/16 07:36 36.5 86 22 105/61 96 Nasal Cannula 2.0 12/23/16 04:00 Nasal Cannula 2.0 12/23/16 03:23 36.4 84 23 99/56 97 Nasal Cannula 2.0 12/23/16 00:00 Nasal Cannula 2.0 12/22/16 23:36 36.3 71 20 107/62 97 Nasal Cannula 2.0 12/22/16 20:22 36.4 70 16 112/63 96 Nasal Cannula 2.0 12/22/16 20:00 Nasal Cannula 2.0 12/22/16 17:55 36.3 70 20 96/49 98 2.0 12/22/16 17:45 73 20 96/59 97 2.0 12/22/16 17:28 36.3 77 20 101/60 98 2.0 12/22/16 15:30 97 Nasal Cannula 2.5 12/22/16 15:14 36.3 74 18 105/60 97 Nasal Cannula 2.0 12/22/16 12:07 36.9 68 22 93/55 96 Nasal Cannula 2.0 12/22/16 12:00 96 Nasal Cannula 2.0 Physical Exam General Appearance: WD/WN, no apparent distress Eyes: normal inspection, EOMI Neck: supple Respiratory/Chest: lungs clear, normal breath sounds, no respiratory distress Cardiovascular: regular rate, rhythm Abdomen: soft Extremities: non-tender, no pedal edema Neurologic/Psychiatric: alert, oriented x 3 Skin: normal color Laboratory Results Item Value Date Time Blood Culture - Preliminary Resulted 12/21/16 0927 Blood NO GROWTH TO DATE. Blood Culture - Preliminary Resulted 12/21/16 0940 Blood NO GROWTH TO DATE. Last 24 Hours Test 12/22/16 14:28 12/22/16 19:45 12/23/16 06:35 Platelet Count 19 K/uL 29 K/uL Sodium Level 136 mmol/L 134 mmol/L Potassium Level 4.1 mmol/L 3.7 mmol/L Chloride Level 101 mmol/L 96 mmol/L Carbon Dioxide Level 22 mmol/L 23 mmol/L Anion Gap 13.0 mmol/L 15.0 mmol/L Blood Urea Nitrogen 102 mg/dl 118 mg/dl Creatinine 6.40 mg/dl 7.20 mg/dl Est Creatinine Clear Calc Drug Dose 10.6 ml/min 9.5 ml/min Estimated GFR () 8.8 7.6 Estimated GFR (Non- 7.6 6.6 BUN/Creatinine Ratio 16.0 16.5 Random Glucose 123 mg/dl 86 mg/dl Calcium Level 7.2 mg/dl 7.0 mg/dl Urine Color BROWN Urine Appearance CLOUDY Urine pH 5.0 Urine Specific [place] 1.025 Urine Protein 2+ Urine Glucose (UA) NEG Urine Ketones NEG Urine Occult Blood 3+ Urine Nitrite NEG Urine Bilirubin NEG Urine Urobilinogen NEG Urine Leukocyte Esterase TRACE Urine RBC >30 /hpf Urine WBC 10-30 /hpf Urine Epithelial Cells 5-10 /lpf Urine Bacteria NEG Urine Random Creatinine 120.0 mg/dl Urine Random Sodium 29 mEq/L White Blood Count 4.45 K/uL Red Blood Count 3.63 M/uL Hemoglobin 10.9 g/dL Hematocrit 31.3 % Mean Corpuscular Volume 86.2 fL Mean Corpuscular Hemoglobin 30.0 pg Mean Corpuscular Hemoglobin Concent 34.8 g/dl Mean Platelet Volume 11.0 fL Neutrophils (%) (Auto) 57.8 % Lymphocytes (%) (Auto) 29.0 % Monocytes (%) (Auto) 7.6 % Eosinophils (%) (Auto) 1.6 % Basophils (%) (Auto) 2.9 % Neutrophils # (Auto) 2.57 K/uL Lymphocytes # (Auto) 1.29 K/uL Monocytes # (Auto) 0.34 K/uL Eosinophils # (Auto) 0.07 K/uL Basophils # (Auto) 0.13 K/uL RDW Standard Deviation 46.7 fL RDW Coefficient of Variation 14.6 % Immature Granulocyte % (Auto) 1.1 % Immature Granulocyte # (Auto) 0.05 K/uL Toxic Vacuolation 1+ Giant Platelets 1+ Echinocytes 2+ Prothrombin Time 11.7 SECONDS Prothromb Time International Ratio 1.1 Activated Partial Thromboplast Time 30.1 SECONDS Partial Thromboplastin Ratio 1.2 Magnesium Level 2.5 mg/dl Total Bilirubin 1.0 mg/dl Direct Bilirubin 0.5 mg/dl Aspartate Amino Transf (AST/SGOT) 165 U/L Alanine Aminotransferase (ALT/SGPT) 92 U/L Alkaline Phosphatase 40 U/L Troponin I 8.080 ng/ml Total Protein 5.0 gm/dl Albumin 2.1 gm/dl Assessment and Plan (1) Ehrlichiosis Assessment & Plan: continue doxy, supportive care. 10 days total. Continued [facility] stay due to: fever, multiple IV medications needed Discharge planning: home
--- NOTE | 2016-12-23 13:06 | Hospitalist Progress Note ---
Hospitalist Progress Note Date of Service December 23, 2016. Subjective feeling more alert today no more fever Constitutional: No fever Respiratory: No shortness of breath Cardiovascular: No chest pain Abdomen: No nausea, No pain Objective Vital Signs Date Time Temp Pulse Resp B/P Pulse Ox O2 Delivery O2 Flow Rate FiO2 12/23/16 12:17 36.4 80 20 123/68 97 Nasal Cannula 2.0 12/23/16 12:00 Nasal Cannula 2.0 12/23/16 08:00 Nasal Cannula 2.0 12/23/16 07:36 36.5 86 22 105/61 96 Nasal Cannula 2.0 12/23/16 04:00 Nasal Cannula 2.0 12/23/16 03:23 36.4 84 23 99/56 97 Nasal Cannula 2.0 12/23/16 00:00 Nasal Cannula 2.0 12/22/16 23:36 36.3 71 20 107/62 97 Nasal Cannula 2.0 12/22/16 20:22 36.4 70 16 112/63 96 Nasal Cannula 2.0 12/22/16 20:00 Nasal Cannula 2.0 12/22/16 17:55 36.3 70 20 96/49 98 2.0 12/22/16 17:45 73 20 96/59 97 2.0 12/22/16 17:28 36.3 77 20 101/60 98 2.0 12/22/16 15:30 97 Nasal Cannula 2.5 12/22/16 15:14 36.3 74 18 105/60 97 Nasal Cannula 2.0 Physical Exam General Appearance: no apparent distress Respiratory/Chest: lungs clear, no respiratory distress Cardiovascular: regular rate, rhythm Extremities: non-tender Neurologic/Psychiatric: alert, oriented x 3, + pertinent finding (left facial droop) Skin: warm/dry Laboratory Results Last 24 Hours Test 12/22/16 14:28 12/22/16 19:45 12/23/16 06:35 Platelet Count 19 K/uL 29 K/uL Sodium Level 136 mmol/L 134 mmol/L Potassium Level 4.1 mmol/L 3.7 mmol/L Chloride Level 101 mmol/L 96 mmol/L Carbon Dioxide Level 22 mmol/L 23 mmol/L Anion Gap 13.0 mmol/L 15.0 mmol/L Blood Urea Nitrogen 102 mg/dl 118 mg/dl Creatinine 6.40 mg/dl 7.20 mg/dl Est Creatinine Clear Calc Drug Dose 10.6 ml/min 9.5 ml/min Estimated GFR () 8.8 7.6 Estimated GFR (Non- 7.6 6.6 BUN/Creatinine Ratio 16.0 16.5 Random Glucose 123 mg/dl 86 mg/dl Calcium Level 7.2 mg/dl 7.0 mg/dl Urine Color BROWN Urine Appearance CLOUDY Urine pH 5.0 Urine Specific [place] 1.025 Urine Protein 2+ Urine Glucose (UA) NEG Urine Ketones NEG Urine Occult Blood 3+ Urine Nitrite NEG Urine Bilirubin NEG Urine Urobilinogen NEG Urine Leukocyte Esterase TRACE Urine RBC >30 /hpf Urine WBC 10-30 /hpf Urine Epithelial Cells 5-10 /lpf Urine Bacteria NEG Urine Random Creatinine 120.0 mg/dl Urine Random Sodium 29 mEq/L White Blood Count 4.45 K/uL Red Blood Count 3.63 M/uL Hemoglobin 10.9 g/dL Hematocrit 31.3 % Mean Corpuscular Volume 86.2 fL Mean Corpuscular Hemoglobin 30.0 pg Mean Corpuscular Hemoglobin Concent 34.8 g/dl Mean Platelet Volume 11.0 fL Neutrophils (%) (Auto) 57.8 % Lymphocytes (%) (Auto) 29.0 % Monocytes (%) (Auto) 7.6 % Eosinophils (%) (Auto) 1.6 % Basophils (%) (Auto) 2.9 % Neutrophils # (Auto) 2.57 K/uL Lymphocytes # (Auto) 1.29 K/uL Monocytes # (Auto) 0.34 K/uL Eosinophils # (Auto) 0.07 K/uL Basophils # (Auto) 0.13 K/uL RDW Standard Deviation 46.7 fL RDW Coefficient of Variation 14.6 % Immature Granulocyte % (Auto) 1.1 % Immature Granulocyte # (Auto) 0.05 K/uL Toxic Vacuolation 1+ Giant Platelets 1+ Echinocytes 2+ Prothrombin Time 11.7 SECONDS Prothromb Time International Ratio 1.1 Activated Partial Thromboplast Time 30.1 SECONDS Partial Thromboplastin Ratio 1.2 Magnesium Level 2.5 mg/dl Total Bilirubin 1.0 mg/dl Direct Bilirubin 0.5 mg/dl Aspartate Amino Transf (AST/SGOT) 165 U/L Alanine Aminotransferase (ALT/SGPT) 92 U/L Alkaline Phosphatase 40 U/L Troponin I 8.080 ng/ml Total Protein 5.0 gm/dl Albumin 2.1 gm/dl Assessment and Plan 81 y/o M h/o HTN, BPH, asthma, GERD here with c/o fevers and chills started 3 days ago. He also noticed increased episodes of urinary incontinence and complained of fatigue and shortness of breath. Noted to be have elevated creatinine, tropoinin and low platelet on admission. Peripheral smear was obtained which revealed inclusion bodies consistent with ehrlichia/anaplasmosis Febrile with leukopenia and thrombocytopenia : - Peripheral smear revealed ehrlichia/ anaplasmosis - blood and urine culture negative - no more fever in 24hrs. Probable Ehrlichiosis: - Peripheral smear: Inclusion bodies consistent with ehrlichia/anaplasmosis - Thrombocytopenia, elevated liver enzymes - Continue 100 mg doxycycline twice a day - Lyme serology negative - ID following - Ehrlichia abs , anaplasmosis abs pending Elevated troponins:? sec to Ehrlichiosis Myocarditis though he does not have any EKG findings or findings on echo - EKG on presentation: Sinus tachycardia Possible Left atrial enlargement Nonspecific ST and T wave abnormality Abnormal ECG When compared with ECG of Aug-2015 06:39, T wave inversion no longer evident in Anterolateral leads - EKG 12/22: Sinus rhythm with Premature atrial complexes Otherwise normal ECG When compared with ECG of 21-DEC-2016 06:20, Premature atrial complexes are now Present Nonspecific T wave abnormality no longer evident in Lateral leads - Initial troponin 13-->14.2--> 17--->18.5-->13.5 - Echo - negative for WMA -Cardiology following -No cardiac intervention - Troponin now coming down Hypotension: - BP improving now. SHAMIR: Likely secondary to ATN sec to Ehrlichiosis - decreased urine output sec to ATN - Creatinine up to 7. - Nephrology following - keep fluid balance positive Thrombocytopenia with coagulopathy: - s/p one unit platelet transfusion. Platelets better today - No active bleeding - Hematology following Elevated liver enzymes - improving Left sided facial droop: - Was worked up for stroke with head CT, MRI which were unremarkable - Carotid ultrasound revealed right external carotid stenosis 50-69% - Aspirin held due to low platelets - Recheck Lyme serology upon discharge - cardiology recommends neuro input for JUAN. will consult with neuro. Hypertension: - Losartan and hydrochlorothiazide currently held due to SHAMIR Hypothyroidism: Continue Synthroid Peripheral neuropathy: - Gabapentin held GERD: - Continue home meds COPD -Continue nebs as needed BPH: - Continue finasteride, alfuzosin Depression - continue Cymbalta DVT prophylaxis: SCDs Full code
[2016-12-23] MEDS: ALFUZosin TAB 10 MG TAB PO SCH (20:30)
[2016-12-23] MEDS: SIMVASTATIN 20 MG TAB PO SCH (20:30)
[2016-12-23] MEDS: RANITIDINE HCL 150 MG TAB PO SCH (20:30)
[2016-12-23] MEDS: POLYETHYLENE (MIRALAX) 17 GM PACK PO SCH (20:31)
[2016-12-24] VITALS (17 sets, daily range): BP systolic 106–149; BP diastolic 64–86; PULSE 67–73; TEMP 36.3–36.8; O2SAT 95–98
[2016-12-24] MEDS: DOXYCYCLINE IV 100 MG in DEXTROSE 5% 100ML 100 ML IV SCH ×2 (03:29→15:30)
[2016-12-24] MEDS: LEVOTHYROXINE 100 MCG TAB PO SCH (06:08)
[2016-12-24] MEDS: AVODART~ORDER AWAITING ACTION SCH ×3 (08:00→16:00)
[2016-12-24] MEDS: DULOXETINE HCL 60 MG CAP PO SCH (08:15)
[2016-12-24] MEDS: CALCIUM 600MG + VIT D 400 IU TAB PO SCH ×2 (08:15→19:39)
[2016-12-24] MEDS: PANTOprazole SOD 40 MG TAB PO SCH (08:16)
[2016-12-24] MEDS: METOPROLOL SUCC 50MG EXT REL TAB PO SCH (08:16)
[2016-12-24] MEDS: CHOLECALCIFEROL 1000 INTER.UNIT TAB PO SCH (08:16)
[2016-12-24 10:00] LABS: HEMATOCRIT 31.7 % (42-52); MEAN CELL VOLUME 84.8 fL (80-100); MEAN CORPUSCULAR HEMOGLOBIN 30.2 pg (25-34); MEAN CORPUSCULAR HGB CONC 35.6 g/dl (32-36); MEAN PLATELET VOLUME 12.2 fL (7.4-10.4); PLATELET COUNT 29 K/uL (130-400); RED BLOOD COUNT 3.74 M/uL (4.7-6.1); WHITE BLOOD COUNT 5.72 K/uL (4.8-10.8)
[2016-12-24 10:29] LABS: COMPLETE YES; ECHINOCYTES 1+; EOSINOPHIL % 2.6 %; LYMPHOCYTE % 22.8 %; VARIANT LYMPHOCYTE % 36.8 %
[2016-12-24 10:38] LABS: ALB/GLOB RATIO 0.8 (0.9-2); BUN/CREATININE RATIO 16.1 (10-20); CALCIUM 7.6 mg/dl (8.5-10.1); CREATININE 8.9 mg/dl (0.60-1.40); POTASSIUM 3.8 mmol/L (3.5-5.1)
--- NOTE | 2016-12-24 10:44 | Nephrology Progress Note ---
Nephrology Progress Note Date of Service December 24, 2016. Chief Complaint Acute renal insufficiency Subjective No acute events overnight. Remains oliguric. No fevers or chills. Appetite good. Denies shortness of breath. No chest pain. Mr. Gill states that his activity tolerance continues to improve. He was out of bed to the bathroom with assistance this morning. He spoke with his daughter (Renetta). He is nervous but accepting of the prospect of hemodialysis if renal function does not start to show evidence of improvement. Review of Systems A complete review of systems was performed. Pertinent positives are noted above. All other systems are negative. Vital Signs Last 8 Hrs Date Time Temp Pulse Resp B/P Pulse Ox O2 Delivery O2 Flow Rate FiO2 12/24/16 08:00 98 Nasal Cannula 2.0 12/24/16 07:57 36.3 73 18 148/75 97 Room Air 2.0 12/24/16 04:12 36.5 72 16 137/73 97 Nasal Cannula 2.0 12/24/16 04:08 36.5 72 18 137/73 97 Nasal Cannula 2.0 12/24/16 04:00 97 Nasal Cannula 2.0 I & O 24-Hour Column 12/24/16 07:59 Intake Total 765 ml Output Total 250 ml Balance 515 ml Last Recorded Weight Weight (Kilograms): 104.200 Physical Exam General Appearance: WD/WN, no apparent distress Head: normocephalic, atraumatic Eyes: normal inspection, sclerae normal ENT: normal ENT inspection, pharynx normal Neck: supple, + JVD (JVP 10 cm) Respiratory/Chest: lungs clear, no respiratory distress, no accessory muscle use, + wheezing (expiratory mild) Cardiovascular: regular rate, rhythm, no gallop, no murmur Abdomen/GI: non tender, soft Genitourinary - Male: + pertinent finding (Bynum draining dark concentrated urine) Extremities/Musculoskelatal: normal inspection, + pedal edema (trace with some dependent edema) Neurologic/Psych: alert, oriented x 3 Family History Patient reports no known family medical history. 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: retired Laboratory Results Past 24 Hours 12/24/16 09:19 Red Blood Count 3.74, Mean Corpuscular Volume 84.8, Mean Corpuscular Hemoglobin 30.2, Mean Corpuscular Hemoglobin Concent 35.6, Mean Platelet Volume 12.2 Test 12/24/16 05:30 12/24/16 09:19 Troponin I 6.080 ng/ml (0-0.045) White Blood Count 5.72 K/uL (4.8-10.8) Red Blood Count 3.74 M/uL (4.7-6.1) Hemoglobin 11.3 g/dL (14.0-18.0) Hematocrit 31.7 % (42-52) Mean Corpuscular Volume 84.8 fL (80-100) Mean Corpuscular Hemoglobin 30.2 pg (25-34) Mean Corpuscular Hemoglobin Concent 35.6 g/dl (32-36) Platelet Count 29 K/uL (130-400) Mean Platelet Volume 12.2 fL (7.4-10.4) RDW Standard Deviation 45.4 fL (36.4-46.3) RDW Coefficient of Variation 14.4 % (11.5-14.5) Neutrophils % (Manual) 36.0 % Lymphocytes % (Manual) 22.8 % Variant Lymphocytes % (manual) 36.8 % Monocytes % (Manual) 1.8 % Eosinophils % (Manual) 2.6 % Neutrophils # (Manual) 2.06 K/uL (1.4-6.5) Total Absolute Neutrophils 2.06 K/uL (1.4-6.5) Lymphocytes # (Manual) 1.30 K/uL (1.2-3.4) Absolute Variant Lymphocytes 2.10 K/uL Total Absolute Lymphocytes 3.41 K/uL (1.2-3.4) Monocytes # (Manual) 0.10 K/uL (0.11-0.59) Eosinophils # (Manual) 0.15 K/uL (0-0.5) Echinocytes 1+ Allergies Coded Allergies: Erythromycin (Verified Allergy, Intermediate, THROAT BEGAN TO SWELL SHUT, 09/04/15) PT Lisinopril (Verified Adverse Reaction, Intermediate, COUGH, 09/04/15) Atorvastatin (Verified Adverse Reaction, Unknown, MYALGIAS, 09/04/15) PT/ALLSCRIPTS Medications Current Inpatient Medications Medications (Trade) Dose Ordered Sig/Sheree Route Start Time Stop Time Status Last Admin Dose Admin Acetaminophen (Tylenol Tab) 650 mg Q4H PRN PO 12/20/16 22:00 01/19/17 21:59 Nitroglycerin (Nitrostat Tab) 0.4 mg UD PRN SL 12/20/16 22:00 01/19/17 21:59 Alfuzosin HCl (Uroxatral Tab) 10 mg HS PO 12/21/16 21:00 01/20/17 20:59 12/23/16 20:30 10 MG Calcium/Vitamin D (Caltrate Plus Tab) 1 tab BID PO 12/21/16 09:00 01/20/17 08:59 12/24/16 08:15 1 TAB Cholecalciferol (Vitamin D Tab) 1,000 inter.unit DAILY PO 12/21/16 09:00 01/20/17 08:59 12/24/16 08:16 1,000 INTER.UNIT Duloxetine HCl (Cymbalta Cap) 60 mg DAILY PO 12/21/16 09:00 01/20/17 08:59 12/24/16 08:15 60 MG Levothyroxine Sodium (Synthroid Tab) 100 mcg DAILYBB PO 12/21/16 06:00 01/20/17 06:59 12/24/16 06:08 100 MCG Metoprolol Succinate (Toprol Xl Tab) 50 mg DAILY PO 12/21/16 09:00 01/20/17 08:59 12/24/16 08:16 50 MG Polyethylene (Miralax Powder Packet) 17 gm HS PO 12/21/16 21:00 01/20/17 20:59 12/22/16 20:46 17 GM Ranitidine HCl (zANTac TAB) 150 mg HS PO 12/21/16 21:00 01/20/17 20:59 12/23/16 20:30 150 MG Simvastatin (Zocor Tab) 20 mg QPM PO 12/21/16 21:00 01/20/17 20:59 12/23/16 20:30 20 MG Loratadine (Claritin Tab) 10 mg QAM PRN PO 12/20/16 22:00 01/19/17 21:59 Miscellaneous Information (Order Awaiting Action) 1 ea QS N/A 12/21/16 00:00 01/20/17 00:00 Pantoprazole Sodium (Protonix Tab) 40 mg QAM PO 12/21/16 09:00 01/20/17 08:59 12/24/16 08:16 40 MG Miscellaneous Information (Order Awaiting Action) 1 ea QS N/A 12/21/16 00:00 01/20/17 00:00 Ondansetron HCl 4 mg 4 mg Q6H PRN IV 12/20/16 22:15 01/19/17 22:14 Doxycycline Hyclate/Dextrose (Vibramycin IV/ D5 100ml) 110 ml @ 50 mls/hr Q12H IV 12/21/16 15:30 12/31/16 15:29 12/24/16 03:29 50 MLS/HR Impression (1) Acute renal insufficiency (2) Ehrlichiosis (3) Trigeminal neuralgia (4) Thrombocytopenia (5) Elevation of cardiac enzymes (6) Hypertension Kane Bell is a 81-year-old male with hypertension, 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 He presented to [facility] with fevers, chills, urinary incontinence, generalized weakness, shortness of breath and left facial droop. Clinical diagnosis ehrlichiosis based on intracellular inclusions seen on peripheral smear. Clinical improvement noted with doxycycline. Unfortunately no evidence of renal recovery. He has been non oliguric. Renal insufficiency is consistent with ATN. He continues to have hematuria and WBC's in his urine and I cannot completely exclude potential GN (or less likely AIN) but clinical presentation suggests that this is unlikely. Urine output decreased. Bynum draining dark concentrated urine. Baseline creatinine 1.1 milligram/deciliter. Metabolic profile pending this morning. Troponin continues to improve. Repeat LFTs pending. No acute changes on EKG. TTE showed mild concentric LVH with hyperdynamic LV function and type 1 diastolic dysfunction. Thrombocytopenia with stable platelet count of 29. Hemoglobin unchanged and leukopenia resolving. Urine analysis is notable for proteinuria and granular casts. This is consistent with ATN. Microscopy revealing a few RBCs and WBCs. CT abdomen showed normal appearing kidneys without evidence of obstruction. Recommendations SHAMIR: -- Blood pressure and volume status appropriate -- Reviewed potential indications for dialysis catheter placement with patient today -- No compelling indication for biopsy -- Metabolic profile pending -- Potassium restrict diet -- Medications appropriate for renal function. Continue to hold gabapentin, HCTZ and Losartan -- Continue to monitor urine microscopy for evidence of persistent microscopic hematuria -- Document I/O's Thrombocytopenia: -- No evidence of TMA -- Early evidence of IC improved -- Platelet count stabilized -- Monitoring daily -- Case discussed with Dr. Shah yesterday Elevated troponin: -- Suspected manifestation of diffuse small vessel injury -- Cardiology consult reviewed Ehrlichiosis: -- ID consult reviewed -- Day #3 doxycycline -- Ab screen for chaffeensis pending
--- NOTE | 2016-12-24 10:55 | Hematology/Oncology Prog Note ---
Hematology/Onc Progress Note Date of Service December 24, 2016. 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 Coagulopathy Thrombocytopenia Medications Medications Administered Medications (Trade) Dose Ordered Sig/Sheree Route Start Time Stop Time Status Last Admin Dose Admin Sodium Chloride 1,000 ml @ 50 mls/hr Q20H IV 12/20/16 18:54 12/21/16 02:01 DC 12/20/16 20:32 50 MLS/HR Sodium Chloride (Nss 1000ml) 1,000 ml @ 75 mls/hr [id number] IV 12/21/16 02:00 12/22/16 18:43 DC 12/22/16 08:29 75 MLS/HR Alfuzosin HCl (Uroxatral Tab) 10 mg HS PO 12/21/16 21:00 01/20/17 20:59 12/23/16 20:30 10 MG Calcium/Vitamin D (Caltrate Plus Tab) 1 tab BID PO 12/21/16 09:00 01/20/17 08:59 12/24/16 08:15 1 TAB Cholecalciferol (Vitamin D Tab) 1,000 inter.unit DAILY PO 12/21/16 09:00 01/20/17 08:59 12/24/16 08:16 1,000 INTER.UNIT Duloxetine HCl (Cymbalta Cap) 60 mg DAILY PO 12/21/16 09:00 01/20/17 08:59 12/24/16 08:15 60 MG Gabapentin (Neurontin Tab) 800 mg TID PO 12/21/16 09:00 12/21/16 17:39 DC 12/21/16 12:56 800 MG Levothyroxine Sodium (Synthroid Tab) 100 mcg DAILYBB PO 12/21/16 06:00 01/20/17 06:59 12/24/16 06:08 100 MCG Metoprolol Succinate (Toprol Xl Tab) 50 mg DAILY PO 12/21/16 09:00 01/20/17 08:59 12/24/16 08:16 50 MG Polyethylene (Miralax Powder Packet) 17 gm HS PO 12/21/16 21:00 01/20/17 20:59 12/22/16 20:46 17 GM Ranitidine HCl (zANTac TAB) 150 mg HS PO 12/21/16 21:00 01/20/17 20:59 12/23/16 20:30 150 MG Simvastatin (Zocor Tab) 20 mg QPM PO 12/21/16 21:00 01/20/17 20:59 12/23/16 20:30 20 MG Pantoprazole Sodium (Protonix Tab) 40 mg QAM PO 12/21/16 09:00 01/20/17 08:59 12/24/16 08:16 40 MG Metoprolol Succinate 50 mg 50 mg NOW STAT PO 12/20/16 22:05 12/20/16 22:47 DC 12/20/16 23:53 50 MG Piperacillin Sod/ Tazobactam Sod/ Dextrose (Zosyn Iv/D5 100ml) 115 ml @ 28.75 mls/ hr Q8H IV 12/21/16 04:00 12/22/16 12:19 DC 12/22/16 12:06 28.75 MLS/HR Piperacillin Sod/ Tazobactam Sod (Zosyn Iv) 4.5 gm NOW STAT IV 12/20/16 22:06 12/20/16 22:49 DC 12/20/16 23:52 4.5 GM Lorazepam 0.5 mg 0.5 mg NOW STAT IV 12/20/16 23:35 12/20/16 23:40 DC 12/21/16 00:21 0.5 MG Doxycycline Hyclate/Dextrose (Vibramycin IV/ D5 100ml) 110 ml @ 50 mls/hr Q12H IV 12/21/16 15:30 12/31/16 15:29 12/24/16 03:29 50 MLS/HR Albumin Human 25 gm 25 gm NOW STAT IV 12/22/16 05:25 12/22/16 05:26 DC 12/22/16 05:51 25 GM Sodium Bicarbonate/ Sterile Water (Sodium Bicarbonate 8.4% Inj/Sterile Water 1000 ml) 1,150 ml @ 75 mls/hr [id number] IV 12/22/16 12:00 12/23/16 03:19 DC 12/22/16 12:06 75 MLS/HR Menthol (Nice Alie) 24 alie STK-MED ONCE .ROUTE 12/23/16 09:25 12/23/16 09:26 DC 12/23/16 09:28 24 ALIE Subjective A little more somnolent today. Denies any new aches or pains. His been no overt bleeding. He's been afebrile Review of Systems: Constitutional: Negative for night sweats, or fever Eyes: Negative for event change of vision ENT: Negative for epistaxis, nasal discharge, sore throat, or deafness Cardiovascular: Negative for chest pain, palpitations, dizziness, diaphoresis Respiratory: Negative for new shortness of breath,hemoptysis, or purulent cough Gastrointestinal: Negative for diarrhea, hematemesis, melena, nausea, vomiting , or dyspepsia Integumentary (skin): Negative for rash or jaundice discoloration Neurological: Negative for weakness, seizure activity, headache, or dizziness Lymphatic/Hematologic: Negative for petechiae, bleeding or new adenopathy Musculoskeletal: Negative for new joint or back pain Allergic/Immunologic: Negative for unusual rash or pruritis. Vital Signs Vital Signs Past 12 Hours Date Time Temp Pulse Resp B/P Pulse Ox O2 Delivery O2 Flow Rate FiO2 12/24/16 08:00 98 Nasal Cannula 2.0 12/24/16 07:57 36.3 73 18 148/75 97 Room Air 2.0 12/24/16 04:12 36.5 72 16 137/73 97 Nasal Cannula 2.0 12/24/16 04:08 36.5 72 18 137/73 97 Nasal Cannula 2.0 12/24/16 04:00 97 Nasal Cannula 2.0 12/24/16 00:05 98 Nasal Cannula 2.0 12/23/16 23:50 36.7 71 18 126/72 98 Nasal Cannula 2.0 Physical Exam Constitutional: vitals are stable. Oriented 2 - 3. Beginning to develop a "uremic odor" Eyes: Eyes are BRANDON EOMI without conjuctival erythema or icterus. ENT: External examination was negative for masses. Neck: Negative for masses or palpable thyromegaly Respiratory: Lung sounds were generally clear bilaterally Cardiovascular: Heart was RRR without significant murmur, gallops aoe rubs Gastrointestinal: No palpable hepatic or splenomegaly. The abdomen was soft with normal bowel sounds. Lymphatic system: there was no palpable peripheral lymphadenopathy Musculoskeletal System: The musculoskeletal system seemed concordant with age. Skin: The skin was negative for jaundice. Neurologic exam: A little more somnolent today Psychiatric exam: Was essentially negative with normal mood and effect. Extremities: Negative for significant edema Laboratory Last 24 Hours Test 5/5/17 05:30 12/24/16 09:19 Troponin I 6.080 ng/ml White Blood Count 5.72 K/uL Red Blood Count 3.74 M/uL Hemoglobin 11.3 g/dL Hematocrit 31.7 % Mean Corpuscular Volume 84.8 fL Mean Corpuscular Hemoglobin 30.2 pg Mean Corpuscular Hemoglobin Concent 35.6 g/dl Platelet Count 29 K/uL Mean Platelet Volume 12.2 fL RDW Standard Deviation 45.4 fL RDW Coefficient of Variation 14.4 % Neutrophils % (Manual) 36.0 % Lymphocytes % (Manual) 22.8 % Variant Lymphocytes % (manual) 36.8 % Monocytes % (Manual) 1.8 % Eosinophils % (Manual) 2.6 % Neutrophils # (Manual) 2.06 K/uL Total Absolute Neutrophils 2.06 K/uL Lymphocytes # (Manual) 1.30 K/uL Absolute Variant Lymphocytes 2.10 K/uL Total Absolute Lymphocytes 3.41 K/uL Monocytes # (Manual) 0.10 K/uL Eosinophils # (Manual) 0.15 K/uL Echinocytes 1+ Sodium Level 131 mmol/L Potassium Level 3.8 mmol/L Chloride Level 95 mmol/L Carbon Dioxide Level 20 mmol/L Anion Gap 16.0 mmol/L Blood Urea Nitrogen 144 mg/dl Creatinine 8.90 mg/dl Est Creatinine Clear Calc Drug Dose 7.9 ml/min Estimated GFR () 5.9 Estimated GFR (Non- 5.1 BUN/Creatinine Ratio 16.1 Random Glucose 119 mg/dl Calcium Level 7.6 mg/dl Total Bilirubin 0.8 mg/dl Aspartate Amino Transf (AST/SGOT) 118 U/L Alanine Aminotransferase (ALT/SGPT) 88 U/L Alkaline Phosphatase 50 U/L Total Protein 5.1 gm/dl Albumin 2.2 gm/dl Globulin 2.9 gm/dl Albumin/Globulin Ratio 0.8 Assessment & Plan 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 His platelet count today is 29,000 again. Stable hematologically however his renal function continues to deteriorate. I suspect dialysis is imminent.
--- NOTE | 2016-12-24 11:38 | Neurology Consultation ---
Neurology Consultation Date of Consultation: December 24, 2016. Attending Physician: Alisa Aguilar M.D. Primary Care Physician: Gio Angel M.D. Reason for Consultation: Left facial weakness History of Present Illness Source: patient, clinic records, hospital records The patient is a 81-year-old male who presented to the emergency department on December 20 complaining of weakness, chills, incontinence that a been present for about 1 week. He was found to have a significant systemic illness characterized by acute renal failure, thrombocytopenia, elevated cardiac enzymes, and fever. Subsequent testing has been consistent with ehrlichiosis. He is appropriately being followed by nephrology, hematology, cardiology, and infectious disease. The patient was noted to have left facial weakness at the time of his presentation which prompted some concern for stroke. This patient's past medical history is notable for postherpetic neuralgia affecting the left face with associated residual, mild, upper and lower facial weakness. I been following this patient in clinic since 2013 for this particular issue. However, this patient's left facial weakness was felt to be potentially worse than it had been previously. There may have been some associated weakness of the left leg as well. A brain MRI was completed yesterday for further assessment of possible stroke. I reviewed the images as well as the radiologist's interpretation of this test. There is no evidence of acute or subacute infarct. Other than minimal chronic small vessel ischemic change, the study is unremarkable. A carotid ultrasound revealed a moderate stenosis of the right internal carotid artery. MR angiography of the head was unremarkable. Upon further questioning, the patient does not really recall having any specific or focal weakness on one side of his body either at the time of his initial presentation or during his hospitalization. He continues to complain of a feeling of generalized diffuse weakness. He denies headache or facial pain at this time. Past Medical/Surgical History Medical Problems: (1) Dyspnea on exertion Status: Acute (2) Elevated troponin Status: Acute (3) Left shoulder pain Status: Acute (4) Stroke-like symptoms Status: Acute Family History Noncontributory due to patient's age Social History Smoking Status: Never smoker Smokeless Tobacco Use: No Alcohol Use: none Drug Use: none Housing Status: lives with significant other Occupation Status: retired Allergies Coded Allergies: Erythromycin (Verified Allergy, Intermediate, THROAT BEGAN TO SWELL SHUT, 09/04/15) PT Lisinopril (Verified Adverse Reaction, Intermediate, COUGH, 09/04/15) Atorvastatin (Verified Adverse Reaction, Unknown, MYALGIAS, 09/04/15) PT/ALLSCRIPTS Current Inpatient Medications Current Inpatient Medications Medications (Trade) Dose Ordered Sig/Sheree Route Start Time Stop Time Status Last Admin Dose Admin Acetaminophen (Tylenol Tab) 650 mg Q4H PRN PO 12/20/16 22:00 01/19/17 21:59 Nitroglycerin (Nitrostat Tab) 0.4 mg UD PRN SL 12/20/16 22:00 01/19/17 21:59 Alfuzosin HCl (Uroxatral Tab) 10 mg HS PO 12/21/16 21:00 01/20/17 20:59 12/23/16 20:30 10 MG Calcium/Vitamin D (Caltrate Plus Tab) 1 tab BID PO 12/21/16 09:00 01/20/17 08:59 12/24/16 08:15 1 TAB Cholecalciferol (Vitamin D Tab) 1,000 inter.unit DAILY PO 12/21/16 09:00 01/20/17 08:59 12/24/16 08:16 1,000 INTER.UNIT Duloxetine HCl (Cymbalta Cap) 60 mg DAILY PO 12/21/16 09:00 01/20/17 08:59 12/24/16 08:15 60 MG Levothyroxine Sodium (Synthroid Tab) 100 mcg DAILYBB PO 12/21/16 06:00 01/20/17 06:59 12/24/16 06:08 100 MCG Metoprolol Succinate (Toprol Xl Tab) 50 mg DAILY PO 12/21/16 09:00 01/20/17 08:59 12/24/16 08:16 50 MG Polyethylene (Miralax Powder Packet) 17 gm HS PO 12/21/16 21:00 01/20/17 20:59 12/22/16 20:46 17 GM Ranitidine HCl (zANTac TAB) 150 mg HS PO 12/21/16 21:00 01/20/17 20:59 12/23/16 20:30 150 MG Simvastatin (Zocor Tab) 20 mg QPM PO 12/21/16 21:00 01/20/17 20:59 12/23/16 20:30 20 MG Loratadine (Claritin Tab) 10 mg QAM PRN PO 12/20/16 22:00 01/19/17 21:59 Miscellaneous Information (Order Awaiting Action) 1 ea QS N/A 12/21/16 00:00 01/20/17 00:00 Pantoprazole Sodium (Protonix Tab) 40 mg QAM PO 12/21/16 09:00 01/20/17 08:59 12/24/16 08:16 40 MG Miscellaneous Information (Order Awaiting Action) 1 ea QS N/A 12/21/16 00:00 01/20/17 00:00 Ondansetron HCl 4 mg 4 mg Q6H PRN IV 12/20/16 22:15 01/19/17 22:14 Doxycycline Hyclate/Dextrose (Vibramycin IV/ D5 100ml) 110 ml @ 50 mls/hr Q12H IV 12/21/16 15:30 12/31/16 15:29 12/24/16 03:29 50 MLS/HR Review of Systems The patient planes of feeling generally ill and fatigued. He complains of feeling feverish and having chills previously. He denies any changes in vision or hearing. He currently denies chest pain or shortness of breath. He denies abdominal pain, nausea, or diarrhea. A full 10 point review of systems was obtained from this patient with pertinent positives and negatives described in the history of present illness. All other systems reviewed and are negative. Physical Exam Vital Signs (Past 24 Hrs): Date Time Temp Pulse Resp B/P Pulse Ox O2 Delivery O2 Flow Rate FiO2 12/24/16 08:00 98 Nasal Cannula 2.0 12/24/16 07:57 36.3 73 18 148/75 97 Room Air 2.0 12/24/16 04:12 36.5 72 16 137/73 97 Nasal Cannula 2.0 12/24/16 04:08 36.5 72 18 137/73 97 Nasal Cannula 2.0 12/24/16 04:00 97 Nasal Cannula 2.0 12/24/16 00:05 98 Nasal Cannula 2.0 12/23/16 23:50 36.7 71 18 126/72 98 Nasal Cannula 2.0 12/23/16 20:30 97 Nasal Cannula 2.0 12/23/16 19:26 36.6 75 18 118/69 97 2.0 12/23/16 15:20 Nasal Cannula 2.0 12/23/16 15:18 36.6 75 18 129/89 97 Nasal Cannula 2.0 12/23/16 12:17 36.4 80 20 123/68 97 Nasal Cannula 2.0 12/23/16 12:00 Nasal Cannula 2.0 The patient is an ill-appearing elderly male. He is lying comfortably in bed, no acute distress. He is alert and oriented to person place and time. Attention and concentration normal. recent and remote memory intact. He is able to name objects and repeat phrases. He exhibits an age-appropriate fund of knowledge and normal vocabulary. Visual castillo full to confrontation. Visual acuity normal. Pupils equal round reactive to light and accommodation. Eye movements normal. No nystagmus. Facial sensation intact bilaterally. There is mild weakness of the left upper and lower facial musculature. Patient is able to close the left eye. There is slight flattening of the left nasolabial fold and slight decreased furrowing of the brow on the left. Hearing intact. Palate elevates to midline. Tongue protrudes to midline. Shoulder shrug intact bilaterally. Sensation intact to light touch, temperature, vibration, and proprioception in all 4 limbs. There is no dysmetria finger to nose or heel to cardona bilaterally. Deep tendon reflexes are normoactive for the arms and legs bilaterally. Plantar responses downgoing bilaterally. Ophthalmoscopic examination reveals normal-appearing optic nerves and posterior segments. No papilledema or hemorrhages. Carotid pulses normal to auscultation bilaterally, no bruits. Musculoskeletal examination reveals normal strength and tone for all 4 limbs. His no hemiparesis. There is no monoparesis. There is no atrophy. No abnormal movements observed. Gait and station not tested due to safety concerns. Laboratory Results Past 24 Hours: 12/24/16 09:19 Red Blood Count 3.74, Mean Corpuscular Volume 84.8, Mean Corpuscular Hemoglobin 30.2, Mean Corpuscular Hemoglobin Concent 35.6, Mean Platelet Volume 12.2 12/24/16 09:19 Test 12/24/16 05:30 12/24/16 09:19 12/24/16 11:10 Troponin I 6.080 ng/ml (0-0.045) White Blood Count 5.72 K/uL (4.8-10.8) Red Blood Count 3.74 M/uL (4.7-6.1) Hemoglobin 11.3 g/dL (14.0-18.0) Hematocrit 31.7 % (42-52) Mean Corpuscular Volume 84.8 fL (80-100) Mean Corpuscular Hemoglobin 30.2 pg (25-34) Mean Corpuscular Hemoglobin Concent 35.6 g/dl (32-36) Platelet Count 29 K/uL (130-400) Mean Platelet Volume 12.2 fL (7.4-10.4) RDW Standard Deviation 45.4 fL (36.4-46.3) RDW Coefficient of Variation 14.4 % (11.5-14.5) Neutrophils % (Manual) 36.0 % Lymphocytes % (Manual) 22.8 % Variant Lymphocytes % (manual) 36.8 % Monocytes % (Manual) 1.8 % Eosinophils % (Manual) 2.6 % Neutrophils # (Manual) 2.06 K/uL (1.4-6.5) Total Absolute Neutrophils 2.06 K/uL (1.4-6.5) Lymphocytes # (Manual) 1.30 K/uL (1.2-3.4) Absolute Variant Lymphocytes 2.10 K/uL Total Absolute Lymphocytes 3.41 K/uL (1.2-3.4) Monocytes # (Manual) 0.10 K/uL (0.11-0.59) Eosinophils # (Manual) 0.15 K/uL (0-0.5) Echinocytes 1+ Anion Gap 16.0 mmol/L (3-11) Est Creatinine Clear Calc Drug Dose 7.9 ml/min Estimated GFR () 5.9 Estimated GFR (Non- 5.1 BUN/Creatinine Ratio 16.1 (10-20) Calcium Level 7.6 mg/dl (8.5-10.1) Total Bilirubin 0.8 mg/dl (0.2-1) Aspartate Amino Transf (AST/SGOT) 118 U/L (15-37) Alanine Aminotransferase (ALT/SGPT) 88 U/L (12-78) Alkaline Phosphatase 50 U/L (45-117) Total Protein 5.1 gm/dl (6.4-8.2) Albumin 2.2 gm/dl (3.4-5.0) Globulin 2.9 gm/dl (2.5-4.0) Albumin/Globulin Ratio 0.8 (0.9-2) Impression This patient has a history of left facial postherpetic neuralgia as well as a mild, chronic, left facial palsy. I have been following him for these issues in neurology clinic for the past few years. Therefore, his left facial weakness is not really a new issue. He does not appear to have an associated left hemiparesis or monoparesis. Furthermore, his brain MRI is negative for acute or subacute infarct. Imaging is typically unremarkable in cases of chronic facial palsy. Of course, this patient has a rather significant systemic illness related to probable ehrlichiosis infection. He does not appear to have any specific neurological issues related to this systemic infection. Plan I do not think additional neurological testing in the context of this patient's left facial weakness is necessary at this point in time. Please contact me if I may be of further assistance.
[2016-12-24 11:43] LABS: URINE APPEARANCE CLOUDY (CLEAR); URINE BILIRUBIN NEG (NEG); URINE COLOR YELLOW; URINE EPITHELIAL CELL AUTO >30 /lpf (0-5); URINE NITRITE NEG (NEG); URINE SPECIFIC GRAVITY 1.015 (1.000-1.030); UROBILINOGEN NEG (NEG)
--- NOTE | 2016-12-24 11:44 | Family Medicine Progress Note ---
Progress Note Date of Service December 24, 2016. Subjective Pt evaluation today including: conversation w/ patient, physical exam, chart review, lab review Voiding: no voiding problems Constitutional: No chills, No fever Eyes: No worsening of vision ENT: No hearing loss Respiratory: No cough, No sputum Cardiovascular: No chest pain Abdomen: No nausea, No pain, No vomiting Male : No dysuria Medications Current Inpatient Medications Medications (Trade) Dose Ordered Sig/Sheree Route Start Time Stop Time Status Last Admin Dose Admin Acetaminophen (Tylenol Tab) 650 mg Q4H PRN PO 12/20/16 22:00 01/19/17 21:59 Nitroglycerin (Nitrostat Tab) 0.4 mg UD PRN SL 12/20/16 22:00 01/19/17 21:59 Alfuzosin HCl (Uroxatral Tab) 10 mg HS PO 12/21/16 21:00 01/20/17 20:59 12/23/16 20:30 10 MG Calcium/Vitamin D (Caltrate Plus Tab) 1 tab BID PO 12/21/16 09:00 01/20/17 08:59 12/24/16 08:15 1 TAB Cholecalciferol (Vitamin D Tab) 1,000 inter.unit DAILY PO 12/21/16 09:00 01/20/17 08:59 12/24/16 08:16 1,000 INTER.UNIT Duloxetine HCl (Cymbalta Cap) 60 mg DAILY PO 12/21/16 09:00 01/20/17 08:59 12/24/16 08:15 60 MG Levothyroxine Sodium (Synthroid Tab) 100 mcg DAILYBB PO 12/21/16 06:00 01/20/17 06:59 12/24/16 06:08 100 MCG Metoprolol Succinate (Toprol Xl Tab) 50 mg DAILY PO 12/21/16 09:00 01/20/17 08:59 12/24/16 08:16 50 MG Polyethylene (Miralax Powder Packet) 17 gm HS PO 12/21/16 21:00 01/20/17 20:59 12/22/16 20:46 17 GM Ranitidine HCl (zANTac TAB) 150 mg HS PO 12/21/16 21:00 01/20/17 20:59 12/23/16 20:30 150 MG Simvastatin (Zocor Tab) 20 mg QPM PO 12/21/16 21:00 01/20/17 20:59 12/23/16 20:30 20 MG Loratadine (Claritin Tab) 10 mg QAM PRN PO 12/20/16 22:00 01/19/17 21:59 Miscellaneous Information (Order Awaiting Action) 1 ea QS N/A 12/21/16 00:00 01/20/17 00:00 Pantoprazole Sodium (Protonix Tab) 40 mg QAM PO 12/21/16 09:00 01/20/17 08:59 12/24/16 08:16 40 MG Miscellaneous Information (Order Awaiting Action) 1 ea QS N/A 12/21/16 00:00 01/20/17 00:00 Ondansetron HCl 4 mg 4 mg Q6H PRN IV 12/20/16 22:15 01/19/17 22:14 Doxycycline Hyclate/Dextrose (Vibramycin IV/ D5 100ml) 110 ml @ 50 mls/hr Q12H IV 12/21/16 15:30 12/31/16 15:29 12/24/16 03:29 50 MLS/HR Objective Vital Signs Date Time Temp Pulse Resp B/P Pulse Ox O2 Delivery O2 Flow Rate FiO2 12/24/16 08:00 98 Nasal Cannula 2.0 12/24/16 07:57 36.3 73 18 148/75 97 Room Air 2.0 12/24/16 04:12 36.5 72 16 137/73 97 Nasal Cannula 2.0 12/24/16 04:08 36.5 72 18 137/73 97 Nasal Cannula 2.0 12/24/16 04:00 97 Nasal Cannula 2.0 12/24/16 00:05 98 Nasal Cannula 2.0 12/23/16 23:50 36.7 71 18 126/72 98 Nasal Cannula 2.0 12/23/16 20:30 97 Nasal Cannula 2.0 12/23/16 19:26 36.6 75 18 118/69 97 2.0 12/23/16 15:20 Nasal Cannula 2.0 12/23/16 15:18 36.6 75 18 129/89 97 Nasal Cannula 2.0 12/23/16 12:17 36.4 80 20 123/68 97 Nasal Cannula 2.0 12/23/16 12:00 Nasal Cannula 2.0 Physical Exam General Appearance: WD/WN, no apparent distress Eyes: normal inspection ENT: normal ENT inspection, + pertinent finding (hearing loss) Neck: supple Respiratory/Chest: chest non-tender, lungs clear, normal breath sounds, no respiratory distress, no accessory muscle use Cardiovascular: regular rate, rhythm Abdomen: normal bowel sounds, non tender, soft, + pertinent finding (dimas with burnham colored urine) Extremities: + pedal edema (trace) Neurologic/Psychiatric: alert, normal mood/affect, + facial droop (left sided) , + pertinent finding (soem episodes of confusion) Skin: normal color Laboratory Results 12/24/16 09:19 Red Blood Count 3.74, Mean Corpuscular Volume 84.8, Mean Corpuscular Hemoglobin 30.2, Mean Corpuscular Hemoglobin Concent 35.6, Mean Platelet Volume 12.2 12/24/16 09:19 Test 12/24/16 05:30 12/24/16 09:19 12/24/16 11:10 Troponin I 6.080 ng/ml (0-0.045) White Blood Count 5.72 K/uL (4.8-10.8) Red Blood Count 3.74 M/uL (4.7-6.1) Hemoglobin 11.3 g/dL (14.0-18.0) Hematocrit 31.7 % (42-52) Mean Corpuscular Volume 84.8 fL (80-100) Mean Corpuscular Hemoglobin 30.2 pg (25-34) Mean Corpuscular Hemoglobin Concent 35.6 g/dl (32-36) Platelet Count 29 K/uL (130-400) Mean Platelet Volume 12.2 fL (7.4-10.4) RDW Standard Deviation 45.4 fL (36.4-46.3) RDW Coefficient of Variation 14.4 % (11.5-14.5) Neutrophils % (Manual) 36.0 % Lymphocytes % (Manual) 22.8 % Variant Lymphocytes % (manual) 36.8 % Monocytes % (Manual) 1.8 % Eosinophils % (Manual) 2.6 % Neutrophils # (Manual) 2.06 K/uL (1.4-6.5) Total Absolute Neutrophils 2.06 K/uL (1.4-6.5) Lymphocytes # (Manual) 1.30 K/uL (1.2-3.4) Absolute Variant Lymphocytes 2.10 K/uL Total Absolute Lymphocytes 3.41 K/uL (1.2-3.4) Monocytes # (Manual) 0.10 K/uL (0.11-0.59) Eosinophils # (Manual) 0.15 K/uL (0-0.5) Echinocytes 1+ Anion Gap 16.0 mmol/L (3-11) Est Creatinine Clear Calc Drug Dose 7.9 ml/min Estimated GFR () 5.9 Estimated GFR (Non- 5.1 BUN/Creatinine Ratio 16.1 (10-20) Calcium Level 7.6 mg/dl (8.5-10.1) Total Bilirubin 0.8 mg/dl (0.2-1) Aspartate Amino Transf (AST/SGOT) 118 U/L (15-37) Alanine Aminotransferase (ALT/SGPT) 88 U/L (12-78) Alkaline Phosphatase 50 U/L (45-117) Total Protein 5.1 gm/dl (6.4-8.2) Albumin 2.2 gm/dl (3.4-5.0) Globulin 2.9 gm/dl (2.5-4.0) Albumin/Globulin Ratio 0.8 (0.9-2) Assessment and Plan 81-year-old male with past medical history of hypertension, BPH, asthma, GERD presented to the ER with complaints of fevers and chills started 3 days ago. He also noticed increased episodes of urinary incontinence and complained of fatigue and shortness of breath. He had been febrile overnight with tachycardia. Also had developed increased work of breathing over the day. He was evaluated for a potential TTP, consumptive coagulopathy , atypical HUS. Peripheral smear was obtained which revealed inclusion bodies consistent with ehrlichia/anaplasmosis. SHAMIR: Likely secondary to ATN - Decreased urine output - Creatinine on presentation at 3, today 5.8-->6.1-->7.2--->8.9 Baseline 1.1 - Nephrology consult- appreciate recommendations - Vascular surgery consult for catheter for dialysis Febrile with leukopenia and thrombocytopenia : - No Longer febrile - UA significant for 3+ occult blood, 5-10 RBCs hpf - Urine culture no growth - Blood culture no growth so far - Peripheral smear revealed ehrlichia/ anaplasmosis Ehrlichiosis: - Peripheral smear: Inclusion bodies consistent with ehrlichia/anaplasmosis - Thrombocytopenia, elevated liver enzymes - Started on 100 mg doxycycline twice a day, day 3 - Lyme serology negative - Infectious diseases consult- appreciate recommendations - Ehrlichia abs , anaplasmosis abs pending Elevated liver enzymes: - Trending down Elevated troponins:? Secondary to Ehrlichia Myocarditis/ myocardial injury though he does not have any EKG findings or findings on echo - EKG on presentation: Sinus tachycardia Possible Left atrial enlargement Nonspecific ST and T wave abnormality Abnormal ECG When compared with ECG of Aug-2015 06:39, T wave inversion no longer evident in Anterolateral leads - EKG 12/22: Sinus rhythm with Premature atrial complexes Otherwise normal ECG When compared with ECG of 21-DEC-2016 06:20, Premature atrial complexes are now Present Nonspecific T wave abnormality no longer evident in Lateral leads - Initial troponin 13-->14.2--> 17--->18.5-->13.5--->8.08-->6.08 - Echo ordered with concerns of bacterial endocarditis and for wall motion abnormalities: 12/21: * The left ventricle is hyperdynamic. * No obvious wall motion abnormality. * Ejection Fraction = >70 %. * There is mild concentric left ventricular hypertrophy. * Grade I diastolic dysfunction, (abnormal relaxation pattern). * No significant valvular pathology -Cardiology consult- appreciate recommendations -No cardiac cath planned for now considering elevated creatinine - Trended daily troponin Hypotension: Resolved Thrombocytopenia: Status post 1 unit platelet transfusion - Platelets on presentation 47-->30-->24-->20-->29-->29 - No active bleeding - Hematology consult- appreciate recommendations Left sided facial droop: - Was worked up for stroke with head CT, MRI which were unremarkable - Carotid ultrasound revealed right external carotid stenosis 50-69% -Aspirin held due to low platelets -Neurology consult- appreciate input - Recheck Lyme serology upon discharge Hypertension: - Losartan and hydrochlorothiazide currently held due to concerns of elevated creatinine Hypothyroidism: Continue Synthroid Peripheral neuropathy: - Gabapentin held GERD: - Continue home meds COPD -Continue nebs as needed BPH: - Continue finasteride, alfuzosin Depression - continue Cymbalta DVT prophylaxis: SCDs Full code Resident Tracking Resident Involvement: Resident Care Provided Care Provided: Adult Hospital Medicine Reviewed: Pt Seen/Exam by Me History denies any complains Constitutional: denies: fever Respiratory: negative: short of breath Cardiovascular: denies chest pain Gastrointestinal/Abdominal: negative: abdominal pain General Appearance: no apparent distress Respiratory: lungs clear, no respiratory distress Cardiovascular: regular rate, rhythm Gastrointestinal: normal bowel sounds, non tender, soft Neurologic/Psychiatric: alert, oriented x 3 Skin Characteristics: warm/dry Assessment/Plan I have reviewed the medical record and performed a history and physical examination of this patient today. I have discussed the case with Dr. Justin. The above note reflects my findings, conclusions, and recommendations.
[2016-12-24 11:49] LABS: MANUAL MICROSCOPIC REQUIRED? NO; REVIEW REQ? YES
--- NOTE | 2016-12-24 13:13 | Surgery Consultation ---
Consultation Date of Service December 24, 2016. (Mohini Rowland, LEA) Chief Complaint ESRD, need permcath (Mohini Rowland, LEA) History of Present Illness The patient is a 81 year old male with multiple medical problems, admitted d/t acute renal failure, seen in consultation today for permcath insertion for HD. Pt admits malaise, fatigue. Denies FULTON, fever, chills, chest pain, SOB, abd pain , N/V, rest pain, claudication, other complaints. (Mohini Rowland, LEA) Vitals Vital Signs Past 12 Hours Date Time Temp Pulse Resp B/P Pulse Ox O2 Delivery O2 Flow Rate FiO2 12/24/16 11:45 36.4 73 20 106/64 95 Room Air 12/24/16 08:00 98 Nasal Cannula 2.0 12/24/16 07:57 36.3 73 18 148/75 97 Room Air 2.0 12/24/16 04:12 36.5 72 16 137/73 97 Nasal Cannula 2.0 12/24/16 04:08 36.5 72 18 137/73 97 Nasal Cannula 2.0 12/24/16 04:00 97 Nasal Cannula 2.0 (Mohini Rowland, LEA) Allergies Coded Allergies: Erythromycin (Verified Allergy, Intermediate, THROAT BEGAN TO SWELL SHUT, 09/04/15) PT Lisinopril (Verified Adverse Reaction, Intermediate, COUGH, 09/04/15) Atorvastatin (Verified Adverse Reaction, Unknown, MYALGIAS, 09/04/15) PT/ALLSCRIPTS Home Medications Scheduled Alfuzosin HCl (Uroxatral), 10 MG PO HS Aspirin (Aspirin Ec), 325 MG PO DAILY Calcium Carbonate-Vitamin D W/ (Caltrate 600 Plus), 1 TAB PO BID Cholecalciferol (Vitamin D 1000 Unit), 1,000 INTER.UNIT PO DAILY Duloxetine HCl (Duloxetine HCl), 60 MG PO DAILY Dutasteride (Dutasteride), 0.5 MG PO DAILY Gabapentin (Gabapentin), 800 MG PO TID Hydrochlorothiazide (Hctz), 12.5 MG PO DAILY Levothyroxine Sodium (Levothyroxine Sodium), 100 MCG PO DAILY Losartan Potassium (Cozaar), 100 MG PO DAILY Metoprolol Succinate (Metoprolol Succinate ER), 50 MG PO DAILY Mometasone Furoate-Formoterol (Dulera 100/5 Mcg), 2 PUFFS INH Q12 Omeprazole (Prilosec), 40 MG PO DAILY Polyethylene Glycol 3350 (Miralax), 1 TBS PO HS Ranitidine (Zantac), 150 MG PO HS Simvastatin (Zocor), 20 MG PO QPM Tadalafil (Cialis), 5 MG PO DAILY Trospium Chloride (Trospium Chloride Er), 60 MG PO DAILY Scheduled PRN Albuterol Hfa (Ventolin Hfa), 2 PUFF INH Q4 PRN for Shortness of Breath Capsaicin (Zostrix Arthritis Pain Re), 1 APPLN TOP QID PRN for Pain Desloratadine (Clarinex), 5 MG PO DAILY PRN for ALLERGIES Problem List Medical Problems: (1) Acute renal insufficiency (2) Asthma (3) Chest pain (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 (Mohini Rowland, JASMINC) Patient reports no known family medical history. (Arnol Mills M.D.) Social History Smoking Status: Never Smoker Hx Tobacco Use In Past Year?: No Hx Alcohol Use - Type & Amnt: Yes (6 beers per week) Hx Substance Use -Type & Amnt: No (Mohini Rowland, JASMINC) Review of Systems Constitutional: + malaise, No chills, No fever Skin: No change in color Eyes: No visual changes ENMT: No sore throat Respiratory: No cough, No hemoptysis, No orthopnea, No short of breath Cardiovascular: No chest pain, No edema, No intermittent claudication, No palpitations, No syncope Gastrointestinal: No abdominal pain, No anorexia, No nausea, No vomiting Neurologic: No dizziness, No lethargy, No numbness, No tingling (Mohini Rowland PA-C) Physical Exam Constitutional: General Apperance: well-nourished, well-developed Level of Distress: NAD, acutely ill, chronically ill Psychiatric: Mental Status: active & alert, normal mood, normal affect Orientation: oriented except where noted, to time, to place, to person Memory: recent memory normal, remote memory normal Head: normocephalic, atraumatic Eyes: EOM: EOMI ENMT: normal ENT inspection, hearing grossly normal Neck: supple, trachea midline Lungs: Respiratory effort: no dyspnea, good air movement Auscultation: breath sounds normal, no wheezing Cardiovascular: Apical Impulse: not displaced Heart Auscultation: RRR, no murmurs, no rubs, no gallops Peripheral Pulses: Pulses: full and equal, in all extremities except if noted Bruits: none appreciated Carotid Pulse: normal on the left, normal on the right Brachial Pulses: normal on the left, normal on the right Radial Pulse: normal on the left, normal on the right Femoral Pulse: normal on the left, normal on the right Posterior Tibialis Pulse: decreased on the left, decreased on the right Dorsalis Pedis Pulse: decreased on the left, decreased on the right Abdomen: Bowel Sounds: normal Inspection & Palpation: soft, non-distended, no tenderness, guarding & rebound Musculoskeletal: normal strength (5/5 throughout), normal tone Extremities: Upper Right: no cyanosis, no edema, no varicosities Upper Left: no cyanosis, no edema, no varicosities Lower Right: no cyanosis, no edema, no varicosities Lower Left: no cyanosis, no edema, no varicosities Neurologic: Cranial Nerves: grossly intact Sensation: grossly intact (Mohini Rowland, LEA) Assessment and Plan ASSESSMENT and PLAN: ESRD Pt for permcath insertion later this afternoon. Procedure, risks, benefits, and alternatives discussed wtih pt, he expresses understanding and agreement to proceed. Pt will also need platelets during procedure d/t thrombocytopenia. (Mohini Rowland PA-C) Patient was seen, examined, and chart reviewed. Agree with exam and treatment plan of the Vascular PA. Patient for permcath insertion. I have discussed the risks options and benefits of the procedure with the patient. The patient understands the risks options and benefits and agrees to the procedure. (Arnol Mills M.D.)
--- NOTE | 2016-12-24 14:19 | Progress Note ---
Subjective Date of Service: December 24, 2016. Subjective pt for hd access, creat increased today. afebrile again overnight. on doxy, tolerating well. LFTS, WBC, troponin continue to improve. platelets unchanged. no transfusion yesterday. remain with low UO. Problem List Medical Problems: (1) Dyspnea on exertion Status: Acute (2) Elevated troponin Status: Acute (3) Left shoulder pain Status: Acute (4) Stroke-like symptoms Status: Acute Objective Vital Signs Date Time Temp Pulse Resp B/P Pulse Ox O2 Delivery O2 Flow Rate FiO2 12/24/16 12:00 Room Air 12/24/16 11:45 36.4 73 20 106/64 95 Room Air 12/24/16 08:00 98 Nasal Cannula 2.0 12/24/16 07:57 36.3 73 18 148/75 97 Room Air 2.0 12/24/16 04:12 36.5 72 16 137/73 97 Nasal Cannula 2.0 12/24/16 04:08 36.5 72 18 137/73 97 Nasal Cannula 2.0 12/24/16 04:00 97 Nasal Cannula 2.0 12/24/16 00:05 98 Nasal Cannula 2.0 12/23/16 23:50 36.7 71 18 126/72 98 Nasal Cannula 2.0 12/23/16 20:30 97 Nasal Cannula 2.0 12/23/16 19:26 36.6 75 18 118/69 97 2.0 12/23/16 15:20 Nasal Cannula 2.0 12/23/16 15:18 36.6 75 18 129/89 97 Nasal Cannula 2.0 Laboratory Results Item Value Date Time Blood Culture - Preliminary Resulted 12/21/16 0940 Blood NO GROWTH TO DATE. Blood Culture - Preliminary Resulted 12/21/16 0927 Blood NO GROWTH TO DATE. Last 24 Hours Test 12/24/16 05:30 12/24/16 09:19 12/24/16 11:10 Troponin I 6.080 ng/ml White Blood Count 5.72 K/uL Red Blood Count 3.74 M/uL Hemoglobin 11.3 g/dL Hematocrit 31.7 % Mean Corpuscular Volume 84.8 fL Mean Corpuscular Hemoglobin 30.2 pg Mean Corpuscular Hemoglobin Concent 35.6 g/dl Platelet Count 29 K/uL Mean Platelet Volume 12.2 fL RDW Standard Deviation 45.4 fL RDW Coefficient of Variation 14.4 % Neutrophils % (Manual) 36.0 % Lymphocytes % (Manual) 22.8 % Variant Lymphocytes % (manual) 36.8 % Monocytes % (Manual) 1.8 % Eosinophils % (Manual) 2.6 % Neutrophils # (Manual) 2.06 K/uL Total Absolute Neutrophils 2.06 K/uL Lymphocytes # (Manual) 1.30 K/uL Absolute Variant Lymphocytes 2.10 K/uL Total Absolute Lymphocytes 3.41 K/uL Monocytes # (Manual) 0.10 K/uL Eosinophils # (Manual) 0.15 K/uL Echinocytes 1+ Sodium Level 131 mmol/L Potassium Level 3.8 mmol/L Chloride Level 95 mmol/L Carbon Dioxide Level 20 mmol/L Anion Gap 16.0 mmol/L Blood Urea Nitrogen 144 mg/dl Creatinine 8.90 mg/dl Est Creatinine Clear Calc Drug Dose 7.9 ml/min Estimated GFR () 5.9 Estimated GFR (Non- 5.1 BUN/Creatinine Ratio 16.1 Random Glucose 119 mg/dl Calcium Level 7.6 mg/dl Total Bilirubin 0.8 mg/dl Aspartate Amino Transf (AST/SGOT) 118 U/L Alanine Aminotransferase (ALT/SGPT) 88 U/L Alkaline Phosphatase 50 U/L Total Protein 5.1 gm/dl Albumin 2.2 gm/dl Globulin 2.9 gm/dl Albumin/Globulin Ratio 0.8 Urine Color YELLOW Urine Appearance CLOUDY Urine pH 5.0 Urine Specific Sharps 1.015 Urine Protein 2+ Urine Glucose (UA) NEG Urine Ketones NEG Urine Occult Blood 3+ Urine Nitrite NEG Urine Bilirubin NEG Urine Urobilinogen NEG Urine Leukocyte Esterase TRACE Urine WBC (Auto) 10-30 /hpf Urine RBC (Auto) >30 /hpf Urine Hyaline Casts (Auto) 5-10 /lpf Urine Epithelial Cells (Auto) >30 /lpf Urine Bacteria (Auto) 1+ Urine Renal Epithelial Cells /lpf Urine Crystals See comments Urine Pathogenic Casts /lpf Urine Yeast (Auto) Assessment and Plan (1) Ehrlichiosis Assessment & Plan: continue doxy for 10 days total, ok to change to po when able. pt has been lethargic, dion may be contributing. for hd. Labs overall continue to improve. Ab pending. Continued [facility] stay due to: fever, multiple IV medications needed Discharge planning: home
[2016-12-24] MEDS ORDERED: HEPARIN SOD (PORCINE) 5000 UNIT/ML 1 ML VIAL ONE (16:15)
[2016-12-24] MEDS ORDERED: FENTANYL CITRATE INJ 50 MCG/1 ML 2 ML VIAL ONE (16:21)
[2016-12-24] MEDS ORDERED: MIDAZOLAM HCL 1 MG/ML 2ML VIAL ONE (16:21)
[2016-12-24] MEDS ORDERED: LIDOCAINE HCL 1% 20 ML VIAL INJ ONE (16:42)
[2016-12-24] MEDS ORDERED: HEPARIN SOD (PORCINE) 5000 UNIT/ML 1 ML VIAL IV ONE (16:53)
--- NOTE | 2016-12-24 16:56 | [facility] Post Operative Brief Note ---
Immediate Operative Summary Operative Date December 24, 2016. Pre-Operative Diagnosis acute renal failure Post-Operative Diagnosis same Procedure(s) Performed Insertion Of Perm Catheter, Right Internal Jugular Approach, Ultrasound Localization Of Right Internal Jugular Vein, Fluoroscopy for Positioning Surgeon Dr. Mills Channel Development Manager Surgeon(s) none Estimated Blood Loss 5 ml Findings tip in distal SVC Specimens none Anesthesia Local Complication(s) None Disposition
--- NOTE | 2016-12-24 17:54 | DIAGNOSTIC IMAGING REPORT ---
DATE OF PROCEDURE: 12/24/2016 PREOPERATIVE DIAGNOSIS: Acute renal failure. POSTOPERATIVE DIAGNOSIS: Same. PROCEDURES: 1. Insertion of right internal jugular vein PermCath, 19 cm. 2. Ultrasound localization of right internal jugular vein. 3. Fluoroscopic imaging for positioning. SURGEON: Dr. Mills. ANESTHETIC: Local. PROCEDURE INDICATIONS: The patient is a 81-year-old gentleman with acute renal failure in need of dialysis. PermCath was recommended. He understood the risks, options and benefits and agreed to have this procedure. The patient was taken to the angio suite and placed in the supine position. After the right side of the neck and chest wall was prepped and draped in a sterile manner, local anesthetic was administered. Ultrasound was used to locate the internal jugular vein. It was good caliber, compressed easily and was patent. Percutaneous puncture was then made of the right internal jugular vein under ultrasound guidance. Wire was passed centrally under fluoro. The wire passed into the inferior vena cava from above. At that point, a stab wound was made in the anterior chest wall. A 19 cm catheter was passed from the stab wound in the chest wall and brought out through the puncture site in the neck. The puncture site was then dilated until the 14-[place] peel-away sheath was inserted. Once the sheath was in place, the PermCath was inserted through the sheath through the central position. The peel-away sheath was removed. The catheter itself was positioned in the distal superior vena cava. Both ports aspirated and flushed easily and they were instilled with heparin. Next, the catheter was sutured to the anterior chest wall using 3-0 nylon suture. The puncture site in the neck was closed using interrupted 4-0 subcuticular suture. Dermabond was used for a dressing on the puncture site and sterile dressings were applied to the catheter. The patient left the angio suite in good condition and tolerated the procedure well.
[2016-12-24 19:37] LABS: ANAPLASMA PHAGOCYTOPHIL IGG <1:64 (<1:64); ANAPLASMA PHAGOCYTOPHIL IGM <1:20 (<1:20); EHRLICHIA CHAFF IGG AB <1:64 (<1:64); EHRLICHIA CHAFF IGM AB <1:20 (<1:20)
[2016-12-24] MEDS: ALFUZosin TAB 10 MG TAB PO SCH (19:39)
[2016-12-24] MEDS: POLYETHYLENE (MIRALAX) 17 GM PACK PO SCH (19:40)
[2016-12-24] MEDS: RANITIDINE HCL 150 MG TAB PO SCH (19:40)
[2016-12-24] MEDS: SIMVASTATIN 20 MG TAB PO SCH (19:40)
[2016-12-25] VITALS (17 sets, daily range): BP systolic 111–165; BP diastolic 61–77; PULSE 64–77; TEMP 36–36.8; O2SAT 91–99
[2016-12-25] MEDS: DOXYCYCLINE IV 100 MG in DEXTROSE 5% 100ML 100 ML IV SCH ×2 (03:13→16:49)
[2016-12-25] MEDS: LEVOTHYROXINE 100 MCG TAB PO SCH (06:18)
[2016-12-25] MEDS: PANTOprazole SOD 40 MG TAB PO SCH (07:24)
[2016-12-25] MEDS: METOPROLOL SUCC 50MG EXT REL TAB PO SCH (07:24)
[2016-12-25] MEDS: CALCIUM 600MG + VIT D 400 IU TAB PO SCH ×2 (07:24→20:44)
[2016-12-25] MEDS: DULOXETINE HCL 60 MG CAP PO SCH (07:24)
[2016-12-25] MEDS: CHOLECALCIFEROL 1000 INTER.UNIT TAB PO SCH (07:24)
[2016-12-25] MEDS: AVODART~ORDER AWAITING ACTION SCH ×3 (07:40→16:00)
[2016-12-25 07:46] LABS: HEMATOCRIT 30.9 % (42-52); MEAN CORPUSCULAR HEMOGLOBIN 29.3 pg (25-34); PLATELET COUNT 65 K/uL (130-400); RED BLOOD COUNT 3.68 M/uL (4.7-6.1); WHITE BLOOD COUNT 7.97 K/uL (4.8-10.8)
[2016-12-25 08:47] LABS: HEPATITIS B AB NEG
[2016-12-25 08:51] LABS: BUN/CREATININE RATIO 16.3 (10-20); CALCIUM 7.7 mg/dl (8.5-10.1); CREATININE 9.9 mg/dl (0.60-1.40)
[2016-12-25 09:07] LABS: COMPLETE YES; ECHINOCYTES 1+; EOSINOPHIL % 3.5 %; LARGE PLATELETS 1+; LYMPH ABS # 2.63 K/uL (1.2-3.4); TOXIC GRANULATION 1+; VARIANT LYM ABS # 2.22 K/uL; VARIANT LYMPHOCYTE % 27.8 %
--- NOTE | 2016-12-25 09:40 | Nephrology Progress Note ---
Nephrology Progress Note Date of Service December 25, 2016. Chief Complaint Follow up evaluation of SHAIMR / oliguric ATN Subjective Mr. Gill was seen & examined in the PCU this morning. He was awake & alert. He denied fever, rash, dyspnea, flank discomfort or uremic symptoms. The patient presented with pancytopenia. Review of blood smear by hematology revealed inclusion bodies within WBC's suggestive of Ehrlichiosis. Patient is now on Doxycycline therapy. Mr. Gill has developed oliguric SHAMIR. Urine microscopy revealed granular casts suggestive of ATN. He underwent R IJ THC insertion 12/24/16. He remains oliguric at this time. Creatinine continues to rise. Review of Systems Constitutional: No fever Cardiovascular: No chest pain Respiratory: No dyspnea at rest Abdomen: No nausea, No pain, No vomiting Extremities: No leg edema A complete review of systems was performed. Pertinent positives are noted above. All other systems are negative. Vital Signs Last 8 Hrs Date Time Temp Pulse Resp B/P Pulse Ox O2 Delivery O2 Flow Rate FiO2 12/25/16 08:02 36.7 77 20 165/77 92 Room Air 12/25/16 08:01 Room Air 12/25/16 04:00 91 Room Air 12/25/16 03:43 36.4 73 20 156/71 92 Room Air I & O 24-Hour Column 12/25/16 07:59 Intake Total 804 ml Output Total 650 ml Balance 154 ml Last Recorded Weight Weight (Kilograms): 100.800 Physical Exam General Appearance: no apparent distress Head: normocephalic, atraumatic Eyes: PERRL, EOMI Neck: supple, no adenopathy, + pertinent finding (R IJ THC with clean dry dressing in place) Respiratory/Chest: lungs clear Cardiovascular: regular rate, rhythm Abdomen/GI: normal bowel sounds, non tender, soft Genitourinary - Male: + pertinent finding (dimas catheter in place draining clear yellow urine) Extremities/Musculoskelatal: no calf tenderness, no pedal edema Neurologic/Psych: alert, oriented x 3 Family History Patient reports no known family medical history. 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: retired Laboratory Results Past 24 Hours 12/25/16 06:55 Red Blood Count 3.68, Mean Corpuscular Volume 84.0, Mean Corpuscular Hemoglobin 29.3, Mean Corpuscular Hemoglobin Concent 35.0, Mean Platelet Volume 11.0 12/25/16 06:55 Test 12/24/16 11:10 12/25/16 06:55 Urine Color YELLOW Urine Appearance CLOUDY (CLEAR) Urine pH 5.0 (4.5-7.5) Urine Specific [place] 1.015 (1.000-1.030) Urine Protein 2+ (NEG) Urine Glucose (UA) NEG (NEG) Urine Ketones NEG (NEG) Urine Occult Blood 3+ (NEG) Urine Nitrite NEG (NEG) Urine Bilirubin NEG (NEG) Urine Urobilinogen NEG (NEG) Urine Leukocyte Esterase TRACE (NEG) Urine WBC (Auto) 10-30 /hpf (0-5) Urine RBC (Auto) >30 /hpf (0-4) Urine Hyaline Casts (Auto) 5-10 /lpf (0-5) Urine Epithelial Cells (Auto) >30 /lpf (0-5) Urine Bacteria (Auto) 1+ (NEG) Urine Renal Epithelial Cells /lpf (0-5) Urine Crystals See comments (NONE PRSENT) Urine Pathogenic Casts /lpf (0) Urine Yeast (Auto) (NONE PRSENT) White Blood Count 7.97 K/uL (4.8-10.8) Red Blood Count 3.68 M/uL (4.7-6.1) Hemoglobin 10.8 g/dL (14.0-18.0) Hematocrit 30.9 % (42-52) Mean Corpuscular Volume 84.0 fL (80-100) Mean Corpuscular Hemoglobin 29.3 pg (25-34) Mean Corpuscular Hemoglobin Concent 35.0 g/dl (32-36) Platelet Count 65 K/uL (130-400) Mean Platelet Volume 11.0 fL (7.4-10.4) RDW Standard Deviation 44.0 fL (36.4-46.3) RDW Coefficient of Variation 14.2 % (11.5-14.5) Neutrophils % (Manual) 34.0 % Lymphocytes % (Manual) 33.0 % Variant Lymphocytes % (manual) 27.8 % Monocytes % (Manual) 1.7 % Eosinophils % (Manual) 3.5 % Neutrophils # (Manual) 2.71 K/uL (1.4-6.5) Total Absolute Neutrophils 2.71 K/uL (1.4-6.5) Lymphocytes # (Manual) 2.63 K/uL (1.2-3.4) Absolute Variant Lymphocytes 2.22 K/uL Total Absolute Lymphocytes 4.85 K/uL (1.2-3.4) Monocytes # (Manual) 0.14 K/uL (0.11-0.59) Eosinophils # (Manual) 0.28 K/uL (0-0.5) Toxic Granulation 1+ Large Platelets 1+ Echinocytes 1+ Anion Gap 18.0 mmol/L (3-11) Est Creatinine Clear Calc Drug Dose 7.0 ml/min Estimated GFR () 5.2 Estimated GFR (Non- 4.5 BUN/Creatinine Ratio 16.3 (10-20) Calcium Level 7.7 mg/dl (8.5-10.1) Troponin I 3.630 ng/ml (0-0.045) Hepatitis B Surface Antigen NEG (NEG) Hepatitis B Surface Antibody NEG Allergies Coded Allergies: Erythromycin (Verified Allergy, Intermediate, THROAT BEGAN TO SWELL SHUT, 09/04/15) PT Lisinopril (Verified Adverse Reaction, Intermediate, COUGH, 09/04/15) Atorvastatin (Verified Adverse Reaction, Unknown, MYALGIAS, 09/04/15) PT/ALLSCRIPTS Medications Current Inpatient Medications Medications (Trade) Dose Ordered Sig/Sheree Route Start Time Stop Time Status Last Admin Dose Admin Acetaminophen (Tylenol Tab) 650 mg Q4H PRN PO 12/20/16 22:00 01/19/17 21:59 Nitroglycerin (Nitrostat Tab) 0.4 mg UD PRN SL 12/20/16 22:00 01/19/17 21:59 Alfuzosin HCl (Uroxatral Tab) 10 mg HS PO 12/21/16 21:00 01/20/17 20:59 12/24/16 19:39 10 MG Calcium/Vitamin D (Caltrate Plus Tab) 1 tab BID PO 12/21/16 09:00 01/20/17 08:59 12/25/16 07:24 1 TAB Cholecalciferol (Vitamin D Tab) 1,000 inter.unit DAILY PO 12/21/16 09:00 01/20/17 08:59 12/25/16 07:24 1,000 INTER.UNIT Duloxetine HCl (Cymbalta Cap) 60 mg DAILY PO 12/21/16 09:00 01/20/17 08:59 12/25/16 07:24 60 MG Levothyroxine Sodium (Synthroid Tab) 100 mcg DAILYBB PO 12/21/16 06:00 01/20/17 06:59 12/25/16 06:18 100 MCG Metoprolol Succinate (Toprol Xl Tab) 50 mg DAILY PO 12/21/16 09:00 01/20/17 08:59 12/25/16 07:24 50 MG Polyethylene (Miralax Powder Packet) 17 gm HS PO 12/21/16 21:00 01/20/17 20:59 12/24/16 19:40 17 GM Ranitidine HCl (zANTac TAB) 150 mg HS PO 12/21/16 21:00 01/20/17 20:59 12/24/16 19:40 150 MG Simvastatin (Zocor Tab) 20 mg QPM PO 12/21/16 21:00 01/20/17 20:59 12/24/16 19:40 20 MG Loratadine (Claritin Tab) 10 mg QAM PRN PO 12/20/16 22:00 01/19/17 21:59 Miscellaneous Information (Order Awaiting Action) 1 ea QS N/A 12/21/16 00:00 01/20/17 00:00 Pantoprazole Sodium (Protonix Tab) 40 mg QAM PO 12/21/16 09:00 01/20/17 08:59 12/25/16 07:24 40 MG Miscellaneous Information (Order Awaiting Action) 1 ea QS N/A 12/21/16 00:00 01/20/17 00:00 Ondansetron HCl 4 mg 4 mg Q6H PRN IV 12/20/16 22:15 01/19/17 22:14 Doxycycline Hyclate/Dextrose (Vibramycin IV/ D5 100ml) 110 ml @ 50 mls/hr Q12H IV 12/21/16 15:30 12/31/16 15:29 12/25/16 03:13 50 MLS/HR Heparin Sodium (Porcine) (No Heparin In Dialysis) 1 ea ONE ONCE N/A 12/25/16 09:15 12/25/16 09:16 UNV Impression (1) Acute renal insufficiency (2) Ehrlichiosis (3) Trigeminal neuralgia (4) Thrombocytopenia (5) Elevation of cardiac enzymes (6) Hypertension Kane Bell is a 81-year-old male w/ HTN, OA, spinal stenosis, lumbar radiculopathy, post herpetic trigeminal neuralgia, BPH and h/o CVA. He presented w/ fevers, chills, urinary incontinence, generalized weakness, shortness of breath and left facial droop. Clinical diagnosis ehrlichiosis based on intracellular inclusions seen on peripheral smear. Clinical improvement noted with doxycycline. Unfortunately no evidence of renal recovery. He remains oliguric. CT abdomen showed normal appearing kidneys without evidence of obstruction. SHAMIR c/w ATN. He continues to have hematuria and WBC's in his urine and I cannot completely exclude potential GN (or less likely AIN) but clinical presentation suggests that this is unlikely. Urine output decreased. Baseline creatinine 1.1 mg/dL. Troponin continues to improve. No acute changes on EKG. TTE showed mild concentric LVH with hyperdynamic LV function and type [address] abdomen showed normal appearing kidneys without evidence of obstruction. Recommendations SHAMIR: -- Blood pressure is mildly elevated. Patient is net 6 L volume + since admission -- R IJ THC placed 12/24/[address] Mills -- No compelling indication for biopsy -- Potassium restrict diet -- Medications appropriate for renal function. Continue to hold gabapentin, HCTZ and Losartan -- 1st run HD today. No heparin. Orders entered into EMR and HD RN notified. Patient's daughter Renetta updated by telephone this am HEME: -- Pancytopenia. Peripheral smear shows inclusion bodies in WBC's suggestive of Ehrlichiosis -- No evidence of TMA -- Hematology following CV: -- Admitted w/ elevated troponin -- Cardiology consult reviewed -- Suspected manifestation of diffuse small vessel injury ID: -- Probable Ehrlichiosis -- ID consult reviewed -- Day #4 doxycycline -- Ab screen for chaffeensis pending
--- NOTE | 2016-12-25 12:34 | Hematology/Oncology Prog Note ---
Hematology/Onc Progress Note Date of Service December 25, 2016. 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 Coagulopathy Thrombocytopenia Medications Medications Administered Medications (Trade) Dose Ordered Sig/Sheree Route Start Time Stop Time Status Last Admin Dose Admin Sodium Chloride 1,000 ml @ 50 mls/hr Q20H IV 12/20/16 18:54 12/21/16 02:01 DC 12/20/16 20:32 50 MLS/HR Sodium Chloride (Nss 1000ml) 1,000 ml @ 75 mls/hr [id number] IV 12/21/16 02:00 12/22/16 18:43 DC 12/22/16 08:29 75 MLS/HR Alfuzosin HCl (Uroxatral Tab) 10 mg HS PO 12/21/16 21:00 01/20/17 20:59 12/24/16 19:39 10 MG Calcium/Vitamin D (Caltrate Plus Tab) 1 tab BID PO 12/21/16 09:00 01/20/17 08:59 12/25/16 07:24 1 TAB Cholecalciferol (Vitamin D Tab) 1,000 inter.unit DAILY PO 12/21/16 09:00 01/20/17 08:59 12/25/16 07:24 1,000 INTER.UNIT Duloxetine HCl (Cymbalta Cap) 60 mg DAILY PO 12/21/16 09:00 01/20/17 08:59 12/25/16 07:24 60 MG Gabapentin (Neurontin Tab) 800 mg TID PO 12/21/16 09:00 12/21/16 17:39 DC 12/21/16 12:56 800 MG Levothyroxine Sodium (Synthroid Tab) 100 mcg DAILYBB PO 12/21/16 06:00 01/20/17 06:59 12/25/16 06:18 100 MCG Metoprolol Succinate (Toprol Xl Tab) 50 mg DAILY PO 12/21/16 09:00 01/20/17 08:59 12/25/16 07:24 50 MG Polyethylene (Miralax Powder Packet) 17 gm HS PO 12/21/16 21:00 01/20/17 20:59 12/24/16 19:40 17 GM Ranitidine HCl (zANTac TAB) 150 mg HS PO 12/21/16 21:00 01/20/17 20:59 12/24/16 19:40 150 MG Simvastatin (Zocor Tab) 20 mg QPM PO 12/21/16 21:00 01/20/17 20:59 12/24/16 19:40 20 MG Pantoprazole Sodium (Protonix Tab) 40 mg QAM PO 12/21/16 09:00 01/20/17 08:59 12/25/16 07:24 40 MG Metoprolol Succinate 50 mg 50 mg NOW STAT PO 12/20/16 22:05 12/20/16 22:47 DC 12/20/16 23:53 50 MG Piperacillin Sod/ Tazobactam Sod/ Dextrose (Zosyn Iv/D5 100ml) 115 ml @ 28.75 mls/ hr Q8H IV 12/21/16 04:00 12/22/16 12:19 DC 12/22/16 12:06 28.75 MLS/HR Piperacillin Sod/ Tazobactam Sod (Zosyn Iv) 4.5 gm NOW STAT IV 12/20/16 22:06 12/20/16 22:49 DC 12/20/16 23:52 4.5 GM Lorazepam 0.5 mg 0.5 mg NOW STAT IV 12/20/16 23:35 12/20/16 23:40 DC 12/21/16 00:21 0.5 MG Doxycycline Hyclate/Dextrose (Vibramycin IV/ D5 100ml) 110 ml @ 50 mls/hr Q12H IV 12/21/16 15:30 12/31/16 15:29 12/25/16 03:13 50 MLS/HR Albumin Human 25 gm 25 gm NOW STAT IV 12/22/16 05:25 12/22/16 05:26 DC 12/22/16 05:51 25 GM Sodium Bicarbonate/ Sterile Water (Sodium Bicarbonate 8.4% Inj/Sterile Water 1000 ml) 1,150 ml @ 75 mls/hr [id number] IV 12/22/16 12:00 12/23/16 03:19 DC 12/22/16 12:06 75 MLS/HR Menthol (Nice Alie) 24 alie STK-MED ONCE .ROUTE 12/23/16 09:25 12/23/16 09:26 DC 12/23/16 09:28 24 ALIE Lidocaine HCl (Xylocaine 1% Inj (Local)) 20 ml ONE ONCE INJ 12/24/16 16:42 5/5/17 16:50 DC 12/24/16 16:42 20 ML Heparin Sodium (Porcine) (Heparin Sod 5000u/ml(Porcine)) 16,000 unit ONE ONCE IV 12/24/16 16:53 12/24/16 16:56 DC 12/24/16 16:53 16,000 UNIT Subjective Currently in dialysis. Response to verbal stimulus but is quite slow in oriented 1-2 Review of Systems: Unable to really obtain and accurate complete review of systems Vital Signs Vital Signs Past 12 Hours Date Time Temp Pulse Resp B/P Pulse Ox O2 Delivery O2 Flow Rate FiO2 12/25/16 11:30 74 115/61 12/25/16 11:15 72 116/70 12/25/16 11:00 75 122/66 12/25/16 10:45 65 122/65 12/25/16 10:30 66 128/77 12/25/16 10:16 70 147/75 12/25/16 10:10 36.0 68 132/64 12/25/16 08:02 36.7 77 20 165/77 92 Room Air 12/25/16 08:01 Room Air 12/25/16 04:00 91 Room Air 12/25/16 03:43 36.4 73 20 156/71 92 Room Air Physical Exam Constitutional: vitals are stable. No overt bleeding Eyes: Eyes are BRANDON EOMI without conjuctival erythema or icterus. ENT: External examination was negative for masses. Neck: Negative for masses or palpable thyromegaly Respiratory: Lung sounds were generally clear bilaterally Cardiovascular: Heart was RRR without significant murmur, gallops aoe rubs Gastrointestinal: No palpable hepatic or splenomegaly. The abdomen was soft with normal bowel sounds. Lymphatic system: there was no palpable peripheral lymphadenopathy Musculoskeletal System: The musculoskeletal system seemed concordant with age. Now has a dialysis catheter in place Skin: The skin was negative for jaundice. Neurologic exam: The exam was negative for any focal findings. Psychiatric exam: Somnolent but easily aroused verbally Extremities: Negative for edema Laboratory Last 24 Hours Test 12/25/16 06:55 White Blood Count 7.97 K/uL Red Blood Count 3.68 M/uL Hemoglobin 10.8 g/dL Hematocrit 30.9 % Mean Corpuscular Volume 84.0 fL Mean Corpuscular Hemoglobin 29.3 pg Mean Corpuscular Hemoglobin Concent 35.0 g/dl Platelet Count 65 K/uL Mean Platelet Volume 11.0 fL RDW Standard Deviation 44.0 fL RDW Coefficient of Variation 14.2 % Neutrophils % (Manual) 34.0 % Lymphocytes % (Manual) 33.0 % Variant Lymphocytes % (manual) 27.8 % Monocytes % (Manual) 1.7 % Eosinophils % (Manual) 3.5 % Neutrophils # (Manual) 2.71 K/uL Total Absolute Neutrophils 2.71 K/uL Lymphocytes # (Manual) 2.63 K/uL Absolute Variant Lymphocytes 2.22 K/uL Total Absolute Lymphocytes 4.85 K/uL Monocytes # (Manual) 0.14 K/uL Eosinophils # (Manual) 0.28 K/uL Toxic Granulation 1+ Large Platelets 1+ Echinocytes 1+ Sodium Level 134 mmol/L Potassium Level 4.0 mmol/L Chloride Level 96 mmol/L Carbon Dioxide Level 20 mmol/L Anion Gap 18.0 mmol/L Blood Urea Nitrogen 162 mg/dl Creatinine 9.90 mg/dl Est Creatinine Clear Calc Drug Dose 7.0 ml/min Estimated GFR () 5.2 Estimated GFR (Non- 4.5 BUN/Creatinine Ratio 16.3 Random Glucose 91 mg/dl Calcium Level 7.7 mg/dl Troponin I 3.630 ng/ml Hepatitis B Surface Antigen NEG Hepatitis B Surface Antibody NEG Assessment & Plan 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 His platelet count today is above 60,000 but he was transfused chest today for catheter placement. No overt bleeding. Serologies negative for both Anaplasma or E. Chaffeensis. I did order a PCR yesterday. Possible that seologies haven' t detected just yet (too early a draw?) and should be repeated in 1-2 weeks. No plans for transfusions today. Coags stable.
--- NOTE | 2016-12-25 15:03 | Hospitalist Progress Note ---
Hospitalist Progress Note Date of Service December 25, 2016. Subjective seen at HD unit no concerns resting comfortably Constitutional: No fever Respiratory: No shortness of breath Cardiovascular: No chest pain Abdomen: No pain Objective Vital Signs Date Time Temp Pulse Resp B/P Pulse Ox O2 Delivery O2 Flow Rate FiO2 12/25/16 12:30 36.0 73 142/75 12/25/16 12:01 Room Air 12/25/16 12:00 72 111/72 12/25/16 11:45 75 125/70 12/25/16 11:30 74 115/61 12/25/16 11:15 72 116/70 12/25/16 11:00 75 122/66 12/25/16 10:45 65 122/65 12/25/16 10:30 66 128/77 12/25/16 10:16 70 147/75 12/25/16 10:10 36.0 68 132/64 12/25/16 08:02 36.7 77 20 165/77 92 Room Air 12/25/16 08:01 Room Air 12/25/16 04:00 91 Room Air 12/25/16 03:43 36.4 73 20 156/71 92 Room Air 12/25/16 00:15 Nasal Cannula 2.0 12/25/16 00:01 36.8 73 20 142/68 95 Nasal Cannula 2.0 12/24/16 20:00 97 Nasal Cannula 4.0 12/24/16 19:37 36.3 67 20 144/68 97 Nasal Cannula 4.0 12/24/16 18:30 67 20 147/74 97 Nasal Cannula 2.0 12/24/16 18:00 67 18 139/80 97 Nasal Cannula 2.0 12/24/16 17:45 70 20 132/86 97 Nasal Cannula 2.0 12/24/16 17:34 36.3 68 20 149/74 98 Nasal Cannula 4.0 12/24/16 17:30 36.8 67 18 149/74 97 Nasal Cannula 2.0 12/24/16 16:20 36.6 71 24 139/76 96 2.0 12/24/16 16:07 36.5 68 20 108/80 97 2.0 12/24/16 16:00 Nasal Cannula 2.0 12/24/16 15:31 36.3 68 20 133/70 96 Nasal Cannula 2.0 Physical Exam General Appearance: no apparent distress Respiratory/Chest: lungs clear, no respiratory distress Cardiovascular: regular rate, rhythm Neurologic/Psychiatric: alert, oriented x 3 Skin: warm/dry Laboratory Results Last 24 Hours Test 12/25/16 06:55 White Blood Count 7.97 K/uL Red Blood Count 3.68 M/uL Hemoglobin 10.8 g/dL Hematocrit 30.9 % Mean Corpuscular Volume 84.0 fL Mean Corpuscular Hemoglobin 29.3 pg Mean Corpuscular Hemoglobin Concent 35.0 g/dl Platelet Count 65 K/uL Mean Platelet Volume 11.0 fL RDW Standard Deviation 44.0 fL RDW Coefficient of Variation 14.2 % Neutrophils % (Manual) 34.0 % Lymphocytes % (Manual) 33.0 % Variant Lymphocytes % (manual) 27.8 % Monocytes % (Manual) 1.7 % Eosinophils % (Manual) 3.5 % Neutrophils # (Manual) 2.71 K/uL Total Absolute Neutrophils 2.71 K/uL Lymphocytes # (Manual) 2.63 K/uL Absolute Variant Lymphocytes 2.22 K/uL Total Absolute Lymphocytes 4.85 K/uL Monocytes # (Manual) 0.14 K/uL Eosinophils # (Manual) 0.28 K/uL Toxic Granulation 1+ Large Platelets 1+ Echinocytes 1+ Sodium Level 134 mmol/L Potassium Level 4.0 mmol/L Chloride Level 96 mmol/L Carbon Dioxide Level 20 mmol/L Anion Gap 18.0 mmol/L Blood Urea Nitrogen 162 mg/dl Creatinine 9.90 mg/dl Est Creatinine Clear Calc Drug Dose 7.0 ml/min Estimated GFR () 5.2 Estimated GFR (Non- 4.5 BUN/Creatinine Ratio 16.3 Random Glucose 91 mg/dl Calcium Level 7.7 mg/dl Troponin I 3.630 ng/ml Hepatitis B Surface Antigen NEG Hepatitis B Surface Antibody NEG Assessment and Plan 81 y/o M h/o HTN, BPH, asthma, GERD here with c/o fevers and chills started 3 days ago. He also noticed increased episodes of urinary incontinence and complained of fatigue and shortness of breath. Noted to be have elevated creatinine, tropoinin and low platelet on admission. Peripheral smear was obtained which revealed inclusion bodies consistent with ehrlichia/anaplasmosis SHAMIR: Oliguric secondary to ATN - dialysis catheter placed by vascular surgery - HD today Probable Ehrlichiosis: - Peripheral smear: Inclusion bodies consistent with ehrlichia/anaplasmosis - Thrombocytopenia, elevated liver enzymes - Continue 100 mg doxycycline twice a day - Lyme serology negative - ID following - Ehrlichia abs , anaplasmosis abs neg. Should repeat in 1-2 wks. PCR ordered. Elevated troponins:? sec to small vessel ds - Echo - negative for WMA - Cardiology following - No cardiac intervention - Troponin trended down - ? stress echo before discharge Hypotension: - resolved - continuing to hold antihypertensives Thrombocytopenia with coagulopathy: - s/p 2 unit platelet transfusion. Platelets 65 - No active bleeding - Hematology following Elevated liver enzymes - improving Left sided facial droop: chronic with h/o postherpetic neuralgia - Was worked up for stroke with head CT, MRI which were unremarkable - Carotid ultrasound revealed right external carotid stenosis 50-69% Hypertension: - Losartan and hydrochlorothiazide currently held due to SHAMIR Hypothyroidism: Continue Synthroid Peripheral neuropathy: - Gabapentin held GERD: - Continue home meds COPD -Continue nebs as needed BPH: - Continue finasteride, alfuzosin Depression - continue Cymbalta DVT prophylaxis: SCDs Full code
[2016-12-25] MEDS: RANITIDINE HCL 150 MG TAB PO SCH (20:43)
[2016-12-25] MEDS: SIMVASTATIN 20 MG TAB PO SCH (20:43)
[2016-12-25] MEDS: ALFUZosin TAB 10 MG TAB PO SCH (20:44)
[2016-12-25] MEDS: POLYETHYLENE (MIRALAX) 17 GM PACK PO SCH (20:44)
[2016-12-26] MEDS: DOXYCYCLINE IV 100 MG in DEXTROSE 5% 100ML 100 ML IV SCH ×2 (03:12→16:54)
[2016-12-26 03:34] VITALS: BP 160/70; PULSE 74; TEMP 36.4; O2SAT 93
[2016-12-26] MEDS: LEVOTHYROXINE 100 MCG TAB PO SCH (06:00)
[2016-12-26 06:59] LABS: HEMATOCRIT 30.5 % (42-52); MEAN CELL VOLUME 85.2 fL (80-100); MEAN CORPUSCULAR HEMOGLOBIN 30.2 pg (25-34); MEAN CORPUSCULAR HGB CONC 35.4 g/dl (32-36); RED BLOOD COUNT 3.58 M/uL (4.7-6.1); WHITE BLOOD COUNT 7.31 K/uL (4.8-10.8)
[2016-12-26 07:23] VITALS: BP 171/68; PULSE 71; TEMP 36.4; O2SAT 92
[2016-12-26 07:27] LABS: MEAN PLATELET VOLUME 10.9 fL (7.4-10.4); PLATELET COUNT 80 K/uL (130-400)
[2016-12-26 07:44] LABS: ALB/GLOB RATIO 0.7 (0.9-2); BUN/CREATININE RATIO 15.6 (10-20); CALCIUM 7.7 mg/dl (8.5-10.1); CREATININE 8.5 mg/dl (0.60-1.40); POTASSIUM 3.8 mmol/L (3.5-5.1)
[2016-12-26] MEDS: AVODART~ORDER AWAITING ACTION SCH ×3 (07:52→16:00)
[2016-12-26 07:54] LABS: COMPLETE YES; EOSINOPHIL % 5.3 %; LYMPH ABS # 1.43 K/uL (1.2-3.4); LYMPHOCYTE % 19.5 %; META ABS # 0.07 K/uL (0-0); METAMYELOCYTE % 0.9 %; NEUTROPHILS % 42.5 %; TOXIC GRANULATION 1+; VARIANT LYMPHOCYTE % 27.4 %
[2016-12-26] MEDS: CHOLECALCIFEROL 1000 INTER.UNIT TAB PO SCH (07:54)
[2016-12-26] MEDS: PANTOprazole SOD 40 MG TAB PO SCH (07:54)
[2016-12-26] MEDS: DULOXETINE HCL 60 MG CAP PO SCH (07:54)
[2016-12-26] MEDS: CALCIUM 600MG + VIT D 400 IU TAB PO SCH ×2 (07:54→20:14)
[2016-12-26] MEDS: METOPROLOL SUCC 50MG EXT REL TAB PO SCH (07:54)
--- NOTE | 2016-12-26 09:58 | Hematology/Oncology Prog Note ---
Hematology/Onc Progress Note Date of Service December 26, 2016. 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 Coagulopathy Thrombocytopenia Medications Medications Administered Medications (Trade) Dose Ordered Sig/Sheree Route Start Time Stop Time Status Last Admin Dose Admin Sodium Chloride 1,000 ml @ 50 mls/hr Q20H IV 12/20/16 18:54 12/21/16 02:01 DC 12/20/16 20:32 50 MLS/HR Sodium Chloride (Nss 1000ml) 1,000 ml @ 75 mls/hr [id number] IV 12/21/16 02:00 12/22/16 18:43 DC 12/22/16 08:29 75 MLS/HR Alfuzosin HCl (Uroxatral Tab) 10 mg HS PO 12/21/16 21:00 01/20/17 20:59 12/25/16 20:44 10 MG Calcium/Vitamin D (Caltrate Plus Tab) 1 tab BID PO 12/21/16 09:00 01/20/17 08:59 12/26/16 07:54 1 TAB Cholecalciferol (Vitamin D Tab) 1,000 inter.unit DAILY PO 12/21/16 09:00 01/20/17 08:59 12/26/16 07:54 1,000 INTER.UNIT Duloxetine HCl (Cymbalta Cap) 60 mg DAILY PO 12/21/16 09:00 01/20/17 08:59 12/26/16 07:54 60 MG Gabapentin (Neurontin Tab) 800 mg TID PO 12/21/16 09:00 12/21/16 17:39 DC 12/21/16 12:56 800 MG Levothyroxine Sodium (Synthroid Tab) 100 mcg DAILYBB PO 12/21/16 06:00 01/20/17 06:59 12/26/16 06:00 100 MCG Metoprolol Succinate (Toprol Xl Tab) 50 mg DAILY PO 12/21/16 09:00 01/20/17 08:59 12/26/16 07:54 50 MG Polyethylene (Miralax Powder Packet) 17 gm HS PO 12/21/16 21:00 01/20/17 20:59 12/25/16 20:44 17 GM Ranitidine HCl (zANTac TAB) 150 mg HS PO 12/21/16 21:00 01/20/17 20:59 12/25/16 20:43 150 MG Simvastatin (Zocor Tab) 20 mg QPM PO 12/21/16 21:00 01/20/17 20:59 12/25/16 20:43 20 MG Pantoprazole Sodium (Protonix Tab) 40 mg QAM PO 12/21/16 09:00 01/20/17 08:59 12/26/16 07:54 40 MG Metoprolol Succinate 50 mg 50 mg NOW STAT PO 12/20/16 22:05 12/20/16 22:47 DC 12/20/16 23:53 50 MG Piperacillin Sod/ Tazobactam Sod/ Dextrose (Zosyn Iv/D5 100ml) 115 ml @ 28.75 mls/ hr Q8H IV 12/21/16 04:00 12/22/16 12:19 DC 12/22/16 12:06 28.75 MLS/HR Piperacillin Sod/ Tazobactam Sod (Zosyn Iv) 4.5 gm NOW STAT IV 12/20/16 22:06 12/20/16 22:49 DC 12/20/16 23:52 4.5 GM Lorazepam 0.5 mg 0.5 mg NOW STAT IV 12/20/16 23:35 12/20/16 23:40 DC 12/21/16 00:21 0.5 MG Doxycycline Hyclate/Dextrose (Vibramycin IV/ D5 100ml) 110 ml @ 50 mls/hr Q12H IV 12/21/16 15:30 12/31/16 15:29 12/26/16 03:12 50 MLS/HR Albumin Human 25 gm 25 gm NOW STAT IV 12/22/16 05:25 12/22/16 05:26 DC 12/22/16 05:51 25 GM Sodium Bicarbonate/ Sterile Water (Sodium Bicarbonate 8.4% Inj/Sterile Water 1000 ml) 1,150 ml @ 75 mls/hr [id number] IV 12/22/16 12:00 12/23/16 03:19 DC 12/22/16 12:06 75 MLS/HR Menthol (Nice Alie) 24 alie STK-MED ONCE .ROUTE 12/23/16 09:25 12/23/16 09:26 DC 12/23/16 09:28 24 ALIE Lidocaine HCl (Xylocaine 1% Inj (Local)) 20 ml ONE ONCE INJ 12/24/16 16:42 5/5/17 16:50 DC 12/24/16 16:42 20 ML Heparin Sodium (Porcine) (Heparin Sod 5000u/ml(Porcine)) 16,000 unit ONE ONCE IV 12/24/16 16:53 12/24/16 16:56 DC 12/24/16 16:53 16,000 UNIT Subjective Awakes easily today oriented 1-2 vitals otherwise stable. His been no overt bleeding. Platelet count today 80,000 Review of Systems: Really unable to obtain what would be an accurate complete review of systems however he tends to answer no to most anything I ask concerning review of systems Vital Signs Vital Signs Past 12 Hours Date Time Temp Pulse Resp B/P Pulse Ox O2 Delivery O2 Flow Rate FiO2 12/26/16 08:01 Room Air 12/26/16 07:23 36.4 71 20 171/68 92 Room Air 12/26/16 04:00 Room Air 12/26/16 03:34 36.4 74 21 160/70 93 Room Air 12/26/16 00:00 Room Air 12/25/16 23:39 36.4 74 22 154/68 99 Room Air Physical Exam Constitutional: vitals are stable. Eyes: Eyes are BRANDON EOMI without conjuctival erythema or icterus. ENT: External examination was negative for masses. Neck: Negative for masses or palpable thyromegaly Respiratory: Lung sounds were generally clear bilaterally Cardiovascular: Heart was RRR without significant murmur, gallops aoe rubs Gastrointestinal: No palpable hepatic or splenomegaly. The abdomen was soft with normal bowel sounds. Lymphatic system: there was no palpable peripheral lymphadenopathy Musculoskeletal System: The musculoskeletal system seemed concordant with age. Skin: The skin was negative for jaundice. Neurologic exam: The exam was negative for any focal findings. Deep tendon reflexes were equal and symmetrical. Psychiatric exam: Was essentially negative with normal mood and effect. Extremities: Negative for edema or erythema Laboratory Last 24 Hours Test 12/26/16 06:26 White Blood Count 7.31 K/uL Red Blood Count 3.58 M/uL Hemoglobin 10.8 g/dL Hematocrit 30.5 % Mean Corpuscular Volume 85.2 fL Mean Corpuscular Hemoglobin 30.2 pg Mean Corpuscular Hemoglobin Concent 35.4 g/dl Platelet Count 80 K/uL Mean Platelet Volume 10.9 fL RDW Standard Deviation 45.5 fL RDW Coefficient of Variation 14.4 % Neutrophils % (Manual) 42.5 % Lymphocytes % (Manual) 19.5 % Variant Lymphocytes % (manual) 27.4 % Monocytes % (Manual) 4.4 % Eosinophils % (Manual) 5.3 % Metamyelocytes % 0.9 % Neutrophils # (Manual) 3.11 K/uL Total Absolute Neutrophils 3.11 K/uL Lymphocytes # (Manual) 1.43 K/uL Absolute Variant Lymphocytes 2.00 K/uL Total Absolute Lymphocytes 3.43 K/uL Monocytes # (Manual) 0.32 K/uL Eosinophils # (Manual) 0.39 K/uL Metamyelocytes # 0.07 K/uL Toxic Granulation 1+ Sodium Level 139 mmol/L Potassium Level 3.8 mmol/L Chloride Level 102 mmol/L Carbon Dioxide Level 19 mmol/L Anion Gap 18.0 mmol/L Blood Urea Nitrogen 133 mg/dl Creatinine 8.50 mg/dl Est Creatinine Clear Calc Drug Dose 8.0 ml/min Estimated GFR () 6.2 Estimated GFR (Non- 5.4 BUN/Creatinine Ratio 15.6 Random Glucose 107 mg/dl Calcium Level 7.7 mg/dl Total Bilirubin 1.1 mg/dl Aspartate Amino Transf (AST/SGOT) 140 U/L Alanine Aminotransferase (ALT/SGPT) 165 U/L Alkaline Phosphatase 58 U/L Troponin I 2.280 ng/ml Total Protein 5.6 gm/dl Albumin 2.3 gm/dl Globulin 3.3 gm/dl Albumin/Globulin Ratio 0.7 Assessment & Plan 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 His platelet count today is now 80,000. There is no overt bleeding. I suspect his platelet count will continue to climb over the next few days. It does appear that his coagulopathy is now on the mend. At this juncture we will sign off us a service but please don't hesitate to reconsult if needed.
--- NOTE | 2016-12-26 10:20 | Nephrology Progress Note ---
Nephrology Progress Note Date of Service December 26, 2016. Chief Complaint Follow up evaluation of SHAMIR / oliguric ATN Subjective Mr. Gill was seen & examined in the PCU this morning. He was awake & alert. He denied fever, rash, dyspnea, flank discomfort or uremic symptoms. The patient presented with pancytopenia. Review of blood smear by hematology revealed inclusion bodies within WBC's suggestive of Ehrlichiosis. Patient is now on Doxycycline therapy. Initial Ab studies for Ehrlichiosis and Anaplasmosis are negative. Hematology recommends repeat studies in 1 - 2 weeks. They have ordered PCR studies. Mr. Gill has oliguric SHAMIR. Urine microscopy revealed granular casts suggestive of ATN. He underwent R IJ THC insertion 12/24/16. !st run HD was completed 12/25/16. There were no complications. He remains oliguric at this time. Review of Systems Constitutional: No fever Cardiovascular: No chest pain Respiratory: No dyspnea at rest Abdomen: No nausea, No pain, No vomiting Extremities: No leg edema A complete review of systems was performed. Pertinent positives are noted above. All other systems are negative. Vital Signs Last 8 Hrs Date Time Temp Pulse Resp B/P Pulse Ox O2 Delivery O2 Flow Rate FiO2 12/26/16 08:01 Room Air 12/26/16 07:23 36.4 71 20 171/68 92 Room Air 12/26/16 04:00 Room Air 12/26/16 03:34 36.4 74 21 160/70 93 Room Air I & O 24-Hour Column 12/26/16 08:00 Intake Total 647 ml Output Total 3000 ml Balance -2353 ml Last Recorded Weight Weight (Kilograms): 97.100 Physical Exam General Appearance: no apparent distress Head: normocephalic, atraumatic Eyes: PERRL, EOMI Neck: no adenopathy, + pertinent finding (R IJ THC w/ dressing in place) Respiratory/Chest: lungs clear Cardiovascular: regular rate, rhythm Abdomen/GI: normal bowel sounds, non tender, soft Genitourinary - Male: + pertinent finding (dimas catheter in place draining clear yellow urine. 200 cc urine is in collection bag) Extremities/Musculoskelatal: no calf tenderness, no pedal edema Neurologic/Psych: alert, oriented x 3 Family History Patient reports no known family medical history. 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: retired Laboratory Results Past 24 Hours 12/26/16 06:26 Red Blood Count 3.58, Mean Corpuscular Volume 85.2, Mean Corpuscular Hemoglobin 30.2, Mean Corpuscular Hemoglobin Concent 35.4, Mean Platelet Volume 10.9 12/26/16 06:26 Test 12/26/16 06:26 White Blood Count 7.31 K/uL (4.8-10.8) Red Blood Count 3.58 M/uL (4.7-6.1) Hemoglobin 10.8 g/dL (14.0-18.0) Hematocrit 30.5 % (42-52) Mean Corpuscular Volume 85.2 fL (80-100) Mean Corpuscular Hemoglobin 30.2 pg (25-34) Mean Corpuscular Hemoglobin Concent 35.4 g/dl (32-36) Platelet Count 80 K/uL (130-400) Mean Platelet Volume 10.9 fL (7.4-10.4) RDW Standard Deviation 45.5 fL (36.4-46.3) RDW Coefficient of Variation 14.4 % (11.5-14.5) Neutrophils % (Manual) 42.5 % Lymphocytes % (Manual) 19.5 % Variant Lymphocytes % (manual) 27.4 % Monocytes % (Manual) 4.4 % Eosinophils % (Manual) 5.3 % Metamyelocytes % 0.9 % Neutrophils # (Manual) 3.11 K/uL (1.4-6.5) Total Absolute Neutrophils 3.11 K/uL (1.4-6.5) Lymphocytes # (Manual) 1.43 K/uL (1.2-3.4) Absolute Variant Lymphocytes 2.00 K/uL Total Absolute Lymphocytes 3.43 K/uL (1.2-3.4) Monocytes # (Manual) 0.32 K/uL (0.11-0.59) Eosinophils # (Manual) 0.39 K/uL (0-0.5) Metamyelocytes # 0.07 K/uL (0-0) Toxic Granulation 1+ Anion Gap 18.0 mmol/L (3-11) Est Creatinine Clear Calc Drug Dose 8.0 ml/min Estimated GFR () 6.2 Estimated GFR (Non- 5.4 BUN/Creatinine Ratio 15.6 (10-20) Calcium Level 7.7 mg/dl (8.5-10.1) Total Bilirubin 1.1 mg/dl (0.2-1) Aspartate Amino Transf (AST/SGOT) 140 U/L (15-37) Alanine Aminotransferase (ALT/SGPT) 165 U/L (12-78) Alkaline Phosphatase 58 U/L (45-117) Troponin I 2.280 ng/ml (0-0.045) Total Protein 5.6 gm/dl (6.4-8.2) Albumin 2.3 gm/dl (3.4-5.0) Globulin 3.3 gm/dl (2.5-4.0) Albumin/Globulin Ratio 0.7 (0.9-2) Allergies Coded Allergies: Erythromycin (Verified Allergy, Intermediate, THROAT BEGAN TO SWELL SHUT, 09/04/15) PT Lisinopril (Verified Adverse Reaction, Intermediate, COUGH, 09/04/15) Atorvastatin (Verified Adverse Reaction, Unknown, MYALGIAS, 09/04/15) PT/ALLSCRIPTS Medications Current Inpatient Medications Medications (Trade) Dose Ordered Sig/Sheree Route Start Time Stop Time Status Last Admin Dose Admin Acetaminophen (Tylenol Tab) 650 mg Q4H PRN PO 12/20/16 22:00 01/19/17 21:59 Nitroglycerin (Nitrostat Tab) 0.4 mg UD PRN SL 12/20/16 22:00 01/19/17 21:59 Alfuzosin HCl (Uroxatral Tab) 10 mg HS PO 12/21/16 21:00 01/20/17 20:59 12/25/16 20:44 10 MG Calcium/Vitamin D (Caltrate Plus Tab) 1 tab BID PO 12/21/16 09:00 01/20/17 08:59 12/26/16 07:54 1 TAB Cholecalciferol (Vitamin D Tab) 1,000 inter.unit DAILY PO 12/21/16 09:00 01/20/17 08:59 12/26/16 07:54 1,000 INTER.UNIT Duloxetine HCl (Cymbalta Cap) 60 mg DAILY PO 12/21/16 09:00 01/20/17 08:59 12/26/16 07:54 60 MG Levothyroxine Sodium (Synthroid Tab) 100 mcg DAILYBB PO 12/21/16 06:00 01/20/17 06:59 12/26/16 06:00 100 MCG Metoprolol Succinate (Toprol Xl Tab) 50 mg DAILY PO 12/21/16 09:00 01/20/17 08:59 12/26/16 07:54 50 MG Polyethylene (Miralax Powder Packet) 17 gm HS PO 12/21/16 21:00 01/20/17 20:59 12/25/16 20:44 17 GM Ranitidine HCl (zANTac TAB) 150 mg HS PO 12/21/16 21:00 01/20/17 20:59 12/25/16 20:43 150 MG Simvastatin (Zocor Tab) 20 mg QPM PO 12/21/16 21:00 01/20/17 20:59 12/25/16 20:43 20 MG Loratadine (Claritin Tab) 10 mg QAM PRN PO 12/20/16 22:00 01/19/17 21:59 Miscellaneous Information (Order Awaiting Action) 1 ea QS N/A 12/21/16 00:00 01/20/17 00:00 Pantoprazole Sodium (Protonix Tab) 40 mg QAM PO 12/21/16 09:00 01/20/17 08:59 12/26/16 07:54 40 MG Miscellaneous Information (Order Awaiting Action) 1 ea QS N/A 12/21/16 00:00 01/20/17 00:00 Ondansetron HCl 4 mg 4 mg Q6H PRN IV 12/20/16 22:15 01/19/17 22:14 Doxycycline Hyclate/Dextrose (Vibramycin IV/ D5 100ml) 110 ml @ 50 mls/hr Q12H IV 12/21/16 15:30 12/31/16 15:29 12/26/16 03:12 50 MLS/HR Impression (1) Acute renal insufficiency (2) Ehrlichiosis (3) Trigeminal neuralgia (4) Thrombocytopenia (5) Elevation of cardiac enzymes (6) Hypertension Kane Bell is a 81-year-old male w/ HTN, OA, spinal stenosis, lumbar radiculopathy, post herpetic trigeminal neuralgia, BPH and h/o CVA. He presented w/ fevers, chills, urinary incontinence, generalized weakness, shortness of breath and left facial droop. Clinical diagnosis ehrlichiosis based on intracellular inclusions seen on peripheral smear. Clinical improvement noted with doxycycline. Patient developed oliguric SHAMIR. Urine sediment revealed granular casts c/w ATN. He continues to have hematuria and WBC's in his urine and I cannot completely exclude potential GN (or less likely AIN) but clinical presentation suggests that this is unlikely. Baseline creatinine 1.1 mg/dL. Unfortunately no evidence of renal recovery at this time. Patient remains oliguric. CT abdomen showed normal appearing kidneys without evidence of obstruction. Troponin continues to improve. No acute changes on EKG. TTE showed mild concentric LVH with hyperdynamic LV function and type 1 diastolic dysfunction. Recommendations SHAMIR: -- Remains oliguric. Will schedule 2nd HD for Tuesday -- R IJ THC placed 12/24/[address] Mills -- No compelling indication for biopsy -- Medications appropriate for renal function. Continue to hold gabapentin, HCTZ and Losartan HEME: -- Pancytopenia. Peripheral smear shows inclusion bodies in WBC's suggestive of Ehrlichiosis -- Antibody studies for Ehrlichiosis and Anaplasmosis are negative. Hematology recommended repeat studies in 1 - 2 weeks. 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
[2016-12-26 11:50] VITALS: BP 154/79; PULSE 67; TEMP 36.3; O2SAT 92
--- NOTE | 2016-12-26 12:36 | Hospitalist Progress Note ---
Hospitalist Progress Note Date of Service December 26, 2016. Subjective no new concerns Constitutional: No fever Respiratory: No shortness of breath Cardiovascular: No chest pain Abdomen: No nausea, No pain Objective Vital Signs Date Time Temp Pulse Resp B/P Pulse Ox O2 Delivery O2 Flow Rate FiO2 12/26/16 12:01 Room Air 12/26/16 11:50 36.3 67 20 154/79 92 Room Air 12/26/16 08:01 Room Air 12/26/16 07:23 36.4 71 20 171/68 92 Room Air 12/26/16 04:00 Room Air 12/26/16 03:34 36.4 74 21 160/70 93 Room Air 12/26/16 00:00 Room Air 12/25/16 23:39 36.4 74 22 154/68 99 Room Air 12/25/16 20:00 Room Air 12/25/16 19:43 36.3 64 21 156/71 95 Room Air 12/25/16 16:47 36.3 68 20 150/77 91 Room Air 12/25/16 16:25 Room Air Physical Exam General Appearance: no apparent distress Respiratory/Chest: lungs clear, no respiratory distress Cardiovascular: regular rate, rhythm Abdomen: normal bowel sounds, non tender, soft Neurologic/Psychiatric: + pertinent finding (somnolent - easily arousable) Skin: warm/dry Laboratory Results Last 24 Hours Test 12/26/16 06:26 White Blood Count 7.31 K/uL Red Blood Count 3.58 M/uL Hemoglobin 10.8 g/dL Hematocrit 30.5 % Mean Corpuscular Volume 85.2 fL Mean Corpuscular Hemoglobin 30.2 pg Mean Corpuscular Hemoglobin Concent 35.4 g/dl Platelet Count 80 K/uL Mean Platelet Volume 10.9 fL RDW Standard Deviation 45.5 fL RDW Coefficient of Variation 14.4 % Neutrophils % (Manual) 42.5 % Lymphocytes % (Manual) 19.5 % Variant Lymphocytes % (manual) 27.4 % Monocytes % (Manual) 4.4 % Eosinophils % (Manual) 5.3 % Metamyelocytes % 0.9 % Neutrophils # (Manual) 3.11 K/uL Total Absolute Neutrophils 3.11 K/uL Lymphocytes # (Manual) 1.43 K/uL Absolute Variant Lymphocytes 2.00 K/uL Total Absolute Lymphocytes 3.43 K/uL Monocytes # (Manual) 0.32 K/uL Eosinophils # (Manual) 0.39 K/uL Metamyelocytes # 0.07 K/uL Toxic Granulation 1+ Sodium Level 139 mmol/L Potassium Level 3.8 mmol/L Chloride Level 102 mmol/L Carbon Dioxide Level 19 mmol/L Anion Gap 18.0 mmol/L Blood Urea Nitrogen 133 mg/dl Creatinine 8.50 mg/dl Est Creatinine Clear Calc Drug Dose 8.0 ml/min Estimated GFR () 6.2 Estimated GFR (Non- 5.4 BUN/Creatinine Ratio 15.6 Random Glucose 107 mg/dl Calcium Level 7.7 mg/dl Total Bilirubin 1.1 mg/dl Aspartate Amino Transf (AST/SGOT) 140 U/L Alanine Aminotransferase (ALT/SGPT) 165 U/L Alkaline Phosphatase 58 U/L Troponin I 2.280 ng/ml Total Protein 5.6 gm/dl Albumin 2.3 gm/dl Globulin 3.3 gm/dl Albumin/Globulin Ratio 0.7 Assessment and Plan 81 y/o M h/o HTN, BPH, asthma, GERD here with c/o fevers and chills started 3 days ago. He also noticed increased episodes of urinary incontinence and complained of fatigue and shortness of breath. Noted to be have elevated creatinine, tropoinin and low platelet on admission. 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 Should repeat in 1-2 wks. PCR ordered. Elevated troponins:? sec to small vessel ds - Echo - negative for WMA - Cardiology following - No cardiac intervention - Troponin trended down - ? stress echo before discharge Hypotension: - resolved - continuing to hold antihypertensives Thrombocytopenia with coagulopathy: - s/p 2 unit platelet transfusion. Platelets 65 - No active bleeding - Hematology following Elevated liver enzymes - slightly higher today. Follow Left sided facial droop: chronic with h/o postherpetic neuralgia - Was worked up for stroke with head CT, MRI which were unremarkable - Carotid ultrasound revealed right external carotid stenosis 50-69% Hypertension: - Losartan and hydrochlorothiazide currently held due to SHAMIR Hypothyroidism: Continue Synthroid Peripheral neuropathy: - Gabapentin held GERD: - Continue home meds COPD -Continue nebs as needed BPH: - Continue finasteride, alfuzosin Depression - continue Cymbalta DVT prophylaxis: SCDs Full code
[2016-12-26 15:49] VITALS: BP 170/77; PULSE 63; TEMP 36.3; O2SAT 96
[2016-12-26] MEDS: ALFUZosin TAB 10 MG TAB PO SCH (20:13)
[2016-12-26] MEDS: POLYETHYLENE (MIRALAX) 17 GM PACK PO SCH (20:14)
[2016-12-26] MEDS: RANITIDINE HCL 150 MG TAB PO SCH (20:15)
[2016-12-26] MEDS: SIMVASTATIN 20 MG TAB PO SCH (20:15)
[2016-12-26 21:06] VITALS: BP 120/70; PULSE 88; TEMP 37.1; O2SAT 93
[2016-12-26 23:40] VITALS: BP_SYST 172; BP_SYST 190; BP_DIAS 73; BP_DIAS 83; PULSE 70; TEMP 36.3; O2SAT 96
[2016-12-27] VITALS (20 sets, daily range): BP systolic 113–184; BP diastolic 69–93; PULSE 64–84; TEMP 36.3–36.7; O2SAT 93–97
[2016-12-27] MEDS: DOXYCYCLINE IV 100 MG in DEXTROSE 5% 100ML 100 ML IV SCH (03:30)
[2016-12-27] MEDS ORDERED: HEPARIN SOD (PORCINE) 1000 UNIT/ML 10 ML VIAL IV SCH (06:00)
[2016-12-27] MEDS: LEVOTHYROXINE 100 MCG TAB PO SCH (06:02)
[2016-12-27 06:31] LABS: HEMATOCRIT 30.4 % (42-52); MEAN CELL VOLUME 85.6 fL (80-100); MEAN CORPUSCULAR HEMOGLOBIN 30.4 pg (25-34); MEAN CORPUSCULAR HGB CONC 35.5 g/dl (32-36); MEAN PLATELET VOLUME 10.2 fL (7.4-10.4); PLATELET COUNT 117 K/uL (130-400); RED BLOOD COUNT 3.55 M/uL (4.7-6.1); WHITE BLOOD COUNT 6.62 K/uL (4.8-10.8)
[2016-12-27] MEDS: AVODART~ORDER AWAITING ACTION SCH ×4 (07:27→23:37)
[2016-12-27] MEDS: PANTOprazole SOD 40 MG TAB PO SCH (07:29)
[2016-12-27] MEDS: METOPROLOL SUCC 50MG EXT REL TAB PO SCH (07:29)
[2016-12-27] MEDS: CALCIUM 600MG + VIT D 400 IU TAB PO SCH ×2 (07:29→20:15)
[2016-12-27] MEDS: DULOXETINE HCL 60 MG CAP PO SCH (07:29)
[2016-12-27] MEDS: CHOLECALCIFEROL 1000 INTER.UNIT TAB PO SCH (07:29)
[2016-12-27 07:45] LABS: ALB/GLOB RATIO 0.7 (0.9-2); BUN/CREATININE RATIO 16.1 (10-20); CREATININE 8.9 mg/dl (0.60-1.40); POTASSIUM 3.9 mmol/L (3.5-5.1)
--- NOTE | 2016-12-27 09:11 | Dialysis Progress Note ---
Hemodialysis Note Date of Service December 27, 2016. Chief Complaint Follow up evaluation of SHAMIR / oliguric ATN Subjective Mr. Gill was seen & examined during HD this morning. He was awake & alert. He denied fever, rash, dyspnea, flank discomfort or uremic symptoms. The patient presented with pancytopenia. Review of blood smear by hematology revealed inclusion bodies within WBC's suggestive of Ehrlichiosis. Patient is now on Doxycycline therapy. Initial Ab studies for Ehrlichiosis and Anaplasmosis were negative 12/26/16. Hematology recommends repeat studies in 1 - 2 weeks. They have ordered PCR studies. Mr. Gill has SHAMIR. Urine microscopy revealed granular casts suggestive of ATN. He underwent R IJ THC insertion 12/24/16. !st run HD was completed . There were no complications. Urine output was 1500 cc overnight. Creatinine continues to trend upward in between dialysis treatments. Review of Systems Constitutional: No fever Cardiovascular: No chest pain Respiratory: No dyspnea at rest Abdomen: No nausea, No pain Extremities: No leg edema A complete review of systems was performed. Pertinent positives are noted above. All other systems are negative. Vital Signs Last 8 Hrs Date Time Temp Pulse Resp B/P Pulse Ox O2 Delivery O2 Flow Rate FiO2 12/27/16 08:07 Room Air 12/27/16 07:30 36.4 71 19 168/74 97 Room Air 12/27/16 04:05 36.6 74 22 184/69 96 Room Air 12/27/16 04:00 Room Air I & O 24-Hour Column 12/27/16 07:59 Intake Total 425 ml Output Total 1775 ml Balance -1350 ml Last Recorded Weight Weight (Kilograms): 94.400 Physical Exam General Appearance: no apparent distress Head: normocephalic, atraumatic Eyes: PERRL, EOMI Neck: no adenopathy Respiratory/Chest: lungs clear, no respiratory distress Cardiovascular: regular rate, rhythm Abdomen/GI: non tender (hypoactive bowel sounds), soft Genitourinary - Male: + pertinent finding (dimas catheter draining clear yellow urine. 300 cc volume in collection bag this morning) Extremities/Musculoskelatal: no calf tenderness, no pedal edema Neurologic/Psych: alert, oriented x 3 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: retired Laboratory Results Past 24 Hours 12/27/16 06:10 12/27/16 06:10 Test 12/27/16 06:10 12/27/16 08:25 Red Blood Count 3.55 M/uL (4.7-6.1) Mean Corpuscular Volume 85.6 fL (80-100) Mean Corpuscular Hemoglobin 30.4 pg (25-34) Mean Corpuscular Hemoglobin Concent 35.5 g/dl (32-36) RDW Standard Deviation 45.3 fL (36.4-46.3) RDW Coefficient of Variation 14.3 % (11.5-14.5) Mean Platelet Volume 10.2 fL (7.4-10.4) Anion Gap 16.0 mmol/L (3-11) Est Creatinine Clear Calc Drug Dose 7.5 ml/min Estimated GFR () 5.9 Estimated GFR (Non- 5.1 BUN/Creatinine Ratio 16.1 (10-20) Calcium Level 8.0 mg/dl (8.5-10.1) Total Bilirubin 0.8 mg/dl (0.2-1) Aspartate Amino Transf (AST/SGOT) 106 U/L (15-37) Alanine Aminotransferase (ALT/SGPT) 157 U/L (12-78) Alkaline Phosphatase 64 U/L (45-117) Total Protein 5.9 gm/dl (6.4-8.2) Albumin 2.5 gm/dl (3.4-5.0) Globulin 3.4 gm/dl (2.5-4.0) Albumin/Globulin Ratio 0.7 (0.9-2) Allergies Coded Allergies: Erythromycin (Verified Allergy, Intermediate, THROAT BEGAN TO SWELL SHUT, 09/04/15) PT Lisinopril (Verified Adverse Reaction, Intermediate, COUGH, 09/04/15) Atorvastatin (Verified Adverse Reaction, Unknown, MYALGIAS, 09/04/15) PT/ALLSCRIPTS Medications Current Inpatient Medications Medications (Trade) Dose Ordered Sig/Sheree Route Start Time Stop Time Status Last Admin Dose Admin Acetaminophen (Tylenol Tab) 650 mg Q4H PRN PO 12/20/16 22:00 01/19/17 21:59 Nitroglycerin (Nitrostat Tab) 0.4 mg UD PRN SL 12/20/16 22:00 01/19/17 21:59 Alfuzosin HCl (Uroxatral Tab) 10 mg HS PO 12/21/16 21:00 01/20/17 20:59 12/26/16 20:13 10 MG Calcium/Vitamin D (Caltrate Plus Tab) 1 tab BID PO 12/21/16 09:00 01/20/17 08:59 12/27/16 07:29 1 TAB Cholecalciferol (Vitamin D Tab) 1,000 inter.unit DAILY PO 12/21/16 09:00 01/20/17 08:59 12/27/16 07:29 1,000 INTER.UNIT Duloxetine HCl (Cymbalta Cap) 60 mg DAILY PO 12/21/16 09:00 01/20/17 08:59 12/27/16 07:29 60 MG Levothyroxine Sodium (Synthroid Tab) 100 mcg DAILYBB PO 12/21/16 06:00 01/20/17 06:59 12/27/16 06:02 100 MCG Metoprolol Succinate (Toprol Xl Tab) 50 mg DAILY PO 12/21/16 09:00 01/20/17 08:59 12/27/16 07:29 50 MG Polyethylene (Miralax Powder Packet) 17 gm HS PO 12/21/16 21:00 01/20/17 20:59 12/25/16 20:44 17 GM Ranitidine HCl (zANTac TAB) 150 mg HS PO 12/21/16 21:00 01/20/17 20:59 12/26/16 20:15 150 MG Simvastatin (Zocor Tab) 20 mg QPM PO 12/21/16 21:00 01/20/17 20:59 12/26/16 20:15 20 MG Loratadine (Claritin Tab) 10 mg QAM PRN PO 12/20/16 22:00 01/19/17 21:59 Miscellaneous Information (Order Awaiting Action) 1 ea QS N/A 12/21/16 00:00 01/20/17 00:00 Pantoprazole Sodium (Protonix Tab) 40 mg QAM PO 12/21/16 09:00 01/20/17 08:59 12/27/16 07:29 40 MG Miscellaneous Information (Order Awaiting Action) 1 ea QS N/A 12/21/16 00:00 01/20/17 00:00 Ondansetron HCl 4 mg 4 mg Q6H PRN IV 12/20/16 22:15 01/19/17 22:14 Doxycycline Hyclate/Dextrose (Vibramycin IV/ D5 100ml) 110 ml @ 50 mls/hr Q12H IV 12/21/16 15:30 12/31/16 15:29 12/27/16 03:30 50 MLS/HR Impression (1) Acute renal insufficiency (2) Ehrlichiosis (3) Trigeminal neuralgia (4) Thrombocytopenia (5) Elevation of cardiac enzymes (6) Hypertension Mr. Bell is a 81-year-old male w/ HTN, OA, spinal stenosis, lumbar radiculopathy, post herpetic trigeminal neuralgia, BPH and h/o CVA. He presented w/ fevers, chills, urinary incontinence, generalized weakness, shortness of breath and left facial droop. Clinical diagnosis of Ehrlichiosis was made based on intracellular inclusions seen on peripheral smear by Hematology. Clinical improvement noted with doxycycline. Patient developed oliguric SHAMIR. Urine sediment revealed granular casts c/w ATN. Baseline creatinine has been 1.1 mg/dL. Patient is now nonoliguric but serum creatinine continues to increase in between HD treatments. Patient has persistent azotemia and metabolic acidosis. CT abdomen showed normal appearing kidneys without evidence of obstruction. Troponin continues to improve. No acute changes on EKG. TTE showed mild concentric LVH with hyperdynamic LV function and type 1 diastolic dysfunction. Recommendations SHAMIR: -- Patient has converted to nonoliguric state. Serum creatinine continues to increase in between HD treatments. Patient has significant azotemia and metabolic acidosis. He was seen & examined during his 2nd HD treatment this morning. IJ THC is functioning well A --> A. -- R IJ THC placed 12/24/[address] Mills -- No compelling indication for biopsy -- Medications appropriate for renal function. Continue to hold gabapentin, HCTZ and Losartan HEME: -- Pancytopenia. Peripheral smear revealed inclusion bodies in WBC's suggestive of Ehrlichiosis -- Antibody studies for Ehrlichiosis and Anaplasmosis are negative 12/26/16. Hematology recommended repeat studies in 1 - 2 weeks. They have ordered PCR studies -- No evidence of TMA -- Hematology following CV: -- Admitted w/ elevated troponin -- Cardiology consult reviewed -- Suspected manifestation of diffuse small vessel injury ID: -- Probable Ehrlichiosis -- ID consult reviewed -- Day #6 doxycycline
--- NOTE | 2016-12-27 10:08 | Progress Note ---
Subjective Date of Service: December 27, 2016. Subjective pt now with hd. afebrile. tolerating doxy. labs improving, LFTS slightly better today, platelets increased, wbc increased. trop and ck improved as well. serologies negative but perph smear with inclusion bodies. day #6 doxy Problem List Medical Problems: (1) Dyspnea on exertion Status: Acute (2) Elevated troponin Status: Acute (3) Left shoulder pain Status: Acute (4) Stroke-like symptoms Status: Acute Objective Vital Signs Date Time Temp Pulse Resp B/P Pulse Ox O2 Delivery O2 Flow Rate FiO2 12/27/16 09:05 36.5 67 167/87 12/27/16 09:00 64 161/74 12/27/16 08:45 68 165/78 12/27/16 08:07 Room Air 12/27/16 07:30 36.4 71 19 168/74 97 Room Air 12/27/16 04:05 36.6 74 22 184/69 96 Room Air 12/27/16 04:00 Room Air 12/27/16 00:00 Room Air 12/26/16 23:40 172/83 12/26/16 23:40 36.3 70 20 190/73 96 Room Air 12/26/16 21:06 37.1 88 20 120/70 93 Room Air 12/26/16 20:00 Room Air 12/26/16 16:34 Room Air 12/26/16 15:49 36.3 63 22 170/77 96 Room Air 12/26/16 12:01 Room Air 12/26/16 11:50 36.3 67 20 154/79 92 Room Air Laboratory Results Item Value Date Time Blood Culture - Final Complete 12/21/16 0940 Blood NO GROWTH Blood Culture - Final Complete 12/21/16 0927 Blood NO GROWTH Last 24 Hours Test 12/27/16 06:10 12/27/16 08:25 White Blood Count 6.62 K/uL Red Blood Count 3.55 M/uL Hemoglobin 10.8 g/dL Hematocrit 30.4 % Mean Corpuscular Volume 85.6 fL Mean Corpuscular Hemoglobin 30.4 pg Mean Corpuscular Hemoglobin Concent 35.5 g/dl RDW Standard Deviation 45.3 fL RDW Coefficient of Variation 14.3 % Platelet Count 117 K/uL Mean Platelet Volume 10.2 fL Sodium Level 141 mmol/L Potassium Level 3.9 mmol/L Chloride Level 105 mmol/L Carbon Dioxide Level 20 mmol/L Anion Gap 16.0 mmol/L Blood Urea Nitrogen 143 mg/dl Creatinine 8.90 mg/dl Est Creatinine Clear Calc Drug Dose 7.5 ml/min Estimated GFR () 5.9 Estimated GFR (Non- 5.1 BUN/Creatinine Ratio 16.1 Random Glucose 110 mg/dl Calcium Level 8.0 mg/dl Total Bilirubin 0.8 mg/dl Aspartate Amino Transf (AST/SGOT) 106 U/L Alanine Aminotransferase (ALT/SGPT) 157 U/L Alkaline Phosphatase 64 U/L Total Protein 5.9 gm/dl Albumin 2.5 gm/dl Globulin 3.4 gm/dl Albumin/Globulin Ratio 0.7 Assessment and Plan (1) Ehrlichiosis Assessment & Plan: continue doxy for 10 days total, ok to change to po when able. pt has been lethargic, dion may be contributing. for hd. Labs overall continue to improve. Continued [facility] stay due to: fever, multiple IV medications needed Discharge planning: home
[2016-12-27 12:50] LABS: VWF PROTEASE ACT (ADAMTS 13) 86 % Activity (68-163)
[2016-12-27] MEDS: ACETAMINOPHEN 325 MG TAB PO PRN ×2 (13:00→17:41)
[2016-12-27] MEDS ORDERED: HydrALAZINE HCL 20 MG/ML VIAL IV. PRN (17:15)
--- NOTE | 2016-12-27 17:21 | Family Medicine Progress Note ---
Progress Note Date of Service December 27, 2016. Subjective Pt evaluation today including: conversation w/ patient, physical exam, chart review, lab review Pain: denies any pain PO Intake: poor Voiding: dimas catheter in place 81-year-old male with past medical history of hypertension, BPH, asthma, GERD presented to the ER with complaints of fevers and chills started 3 days ago [employer]. He also noticed increased episodes of urinary incontinence and complained of fatigue and shortness of breath. Was evaluated for elevated troponins, strokelike symptoms with head CT, MRI which were negative. Was found to have anaplasmosis on blood smear. Had HD this morning, appears very tired. Denies any chest pain, difficulty breathing, palpitations, fevers or chills Constitutional: No chills, No fever Eyes: No worsening of vision ENT: No hearing loss, No unusual epistaxis Respiratory: No cough, No sputum Cardiovascular: No chest pain, No orthopnea Breast: No breast lump Abdomen: No nausea, No pain Male : No dysuria, No urinary frequency Neurologic: No memory loss Psychiatric: No depression symptoms Heme: No abnormal bleeding/bruising Endo: No fatigue Medications Current Inpatient Medications Medications (Trade) Dose Ordered Sig/Sheree Route Start Time Stop Time Status Last Admin Dose Admin Acetaminophen (Tylenol Tab) 650 mg Q4H PRN PO 12/20/16 22:00 01/19/17 21:59 12/27/16 13:00 650 MG Nitroglycerin (Nitrostat Tab) 0.4 mg UD PRN SL 12/20/16 22:00 01/19/17 21:59 Alfuzosin HCl (Uroxatral Tab) 10 mg HS PO 12/21/16 21:00 01/20/17 20:59 12/26/16 20:13 10 MG Calcium/Vitamin D (Caltrate Plus Tab) 1 tab BID PO 12/21/16 09:00 01/20/17 08:59 12/27/16 07:29 1 TAB Cholecalciferol (Vitamin D Tab) 1,000 inter.unit DAILY PO 12/21/16 09:00 01/20/17 08:59 12/27/16 07:29 1,000 INTER.UNIT Duloxetine HCl (Cymbalta Cap) 60 mg DAILY PO 12/21/16 09:00 01/20/17 08:59 12/27/16 07:29 60 MG Levothyroxine Sodium (Synthroid Tab) 100 mcg DAILYBB PO 12/21/16 06:00 01/20/17 06:59 12/27/16 06:02 100 MCG Metoprolol Succinate (Toprol Xl Tab) 50 mg DAILY PO 12/21/16 09:00 01/20/17 08:59 12/27/16 07:29 50 MG Polyethylene (Miralax Powder Packet) 17 gm HS PO 12/21/16 21:00 01/20/17 20:59 12/25/16 20:44 17 GM Ranitidine HCl (zANTac TAB) 150 mg HS PO 12/21/16 21:00 01/20/17 20:59 12/26/16 20:15 150 MG Simvastatin (Zocor Tab) 20 mg QPM PO 12/21/16 21:00 01/20/17 20:59 12/26/16 20:15 20 MG Loratadine (Claritin Tab) 10 mg QAM PRN PO 12/20/16 22:00 01/19/17 21:59 Miscellaneous Information (Order Awaiting Action) 1 ea QS N/A 12/21/16 00:00 01/20/17 00:00 Pantoprazole Sodium (Protonix Tab) 40 mg QAM PO 12/21/16 09:00 01/20/17 08:59 12/27/16 07:29 40 MG Miscellaneous Information (Order Awaiting Action) 1 ea QS N/A 12/21/16 00:00 01/20/17 00:00 Ondansetron HCl (Zofran Inj) 4 mg Q6H PRN IV 12/20/16 22:15 01/19/17 22:14 Doxycycline Hyclate (Vibramycin Cap) 100 mg BID PO 12/27/16 21:00 12/31/16 23:59 Objective Vital Signs Date Time Temp Pulse Resp B/P Pulse Ox O2 Delivery O2 Flow Rate FiO2 12/27/16 16:07 Room Air 12/27/16 15:42 36.5 76 16 163/79 93 Room Air 12/27/16 12:34 Room Air 12/27/16 12:10 36.6 78 160/82 12/27/16 12:06 36.3 81 19 155/78 96 Room Air 12/27/16 11:30 84 152/75 12/27/16 11:15 77 119/72 12/27/16 11:00 73 129/76 12/27/16 10:45 76 128/73 12/27/16 10:30 75 136/84 12/27/16 10:15 73 113/70 12/27/16 10:00 73 131/76 12/27/16 09:45 72 132/76 12/27/16 09:30 73 134/93 12/27/16 09:15 72 140/80 12/27/16 09:05 36.5 67 167/87 12/27/16 09:00 64 161/74 12/27/16 08:45 68 165/78 12/27/16 08:07 Room Air 12/27/16 07:30 36.4 71 19 168/74 97 Room Air 12/27/16 04:05 36.6 74 22 184/69 96 Room Air 12/27/16 04:00 Room Air 12/27/16 00:00 Room Air 12/26/16 23:40 172/83 12/26/16 23:40 36.3 70 20 190/73 96 Room Air 12/26/16 21:06 37.1 88 20 120/70 93 Room Air 12/26/16 20:00 Room Air Physical Exam General Appearance: WD/WN, no apparent distress Eyes: normal inspection ENT: + pertinent finding (hearing loss) Neck: no adenopathy Respiratory/Chest: chest non-tender, no respiratory distress, no accessory muscle use, + decreased breath sounds Cardiovascular: regular rate, rhythm, no edema, no murmur Abdomen: normal bowel sounds, non tender, soft Extremities: normal range of motion, non-tender, no pedal edema Neurologic/Psychiatric: normal mood/affect, oriented x 3, + pertinent finding ( drowsy and tired) Skin: warm/dry Laboratory Results 12/27/16 06:10 12/27/16 06:10 Test 12/27/16 06:10 Red Blood Count 3.55 M/uL (4.7-6.1) Mean Corpuscular Volume 85.6 fL (80-100) Mean Corpuscular Hemoglobin 30.4 pg (25-34) Mean Corpuscular Hemoglobin Concent 35.5 g/dl (32-36) RDW Standard Deviation 45.3 fL (36.4-46.3) RDW Coefficient of Variation 14.3 % (11.5-14.5) Mean Platelet Volume 10.2 fL (7.4-10.4) Anion Gap 16.0 mmol/L (3-11) Est Creatinine Clear Calc Drug Dose 7.5 ml/min Estimated GFR () 5.9 Estimated GFR (Non- 5.1 BUN/Creatinine Ratio 16.1 (10-20) Calcium Level 8.0 mg/dl (8.5-10.1) Total Bilirubin 0.8 mg/dl (0.2-1) Aspartate Amino Transf (AST/SGOT) 106 U/L (15-37) Alanine Aminotransferase (ALT/SGPT) 157 U/L (12-78) Alkaline Phosphatase 64 U/L (45-117) Troponin I 1.730 ng/ml (0-0.045) Total Protein 5.9 gm/dl (6.4-8.2) Albumin 2.5 gm/dl (3.4-5.0) Globulin 3.4 gm/dl (2.5-4.0) Albumin/Globulin Ratio 0.7 (0.9-2) Assessment and Plan 81 y/o M h/o HTN, BPH, asthma, GERD here with c/o fevers and chills started 3 days ago. He also noticed increased episodes of urinary incontinence and complained of fatigue and shortness of breath. Noted to be have elevated creatinine, tropoinin and low platelet on admission. Peripheral smear was obtained which revealed inclusion bodies consistent with ehrlichia/anaplasmosis SHAMIR: Oliguric secondary to ATN s/p HDX2 - HD this morning - Monitor creatinine - Continue to hold gabapentin, HCTZ and Losartan Probable Ehrlichiosis/anaplasmosis - Peripheral smear: Inclusion bodies consistent with ehrlichia/anaplasmosis - Thrombocytopenia, elevated liver enzymes- improving - Continue 100 mg doxycycline twice a day, day 6.( Total of 10 days) - Lyme serology negative - ID consultation-appreciate input - Ehrlichia abs , anaplasmosis abs neg. Should repeat in 1-2 wks. PCR ordered. -Repeat Lyme serology as an outpatient Elevated troponins:? sec to small vessel disease versus myocarditis - Echo - negative for WMA - Cardiology on board - No cardiac intervention - Troponin trended down Initial troponin 13-->14.2--> 17--->18.5-->13.5--->8.08- ->6.08-->3.6-->2.2-->1.7 - ? stress echo before discharge Hypotension: - resolved - continuing to hold antihypertensives Thrombocytopenia with coagulopathy: Resolved - s/p 2 unit platelet transfusion. Platelets 117 - No active bleeding - Hematology on board Elevated liver enzymes - Stable Left sided facial droop: chronic with h/o postherpetic neuralgia - Was worked up for stroke with head CT, MRI which were unremarkable - Carotid ultrasound revealed right external carotid stenosis 50-69% - Will continue aspirin, statin upon discharge Hypertension: - Losartan and hydrochlorothiazide currently held due to SHAMIR - May use hydralazine when necessary Hypothyroidism: Continue Synthroid Peripheral neuropathy: - Gabapentin held GERD: - Continue home meds - CT: Moderate thickening of distal esophageal wall - EGD as an outpatient COPD -Continue nebs as needed BPH: - Continue finasteride, alfuzosin Depression - continue Cymbalta DVT prophylaxis: SCDs Full code Disposition: Telemetry Resident Tracking Resident Involvement: Resident Care Provided Care Provided: Adult [facility] Medicine Reviewed: Pt Seen/Exam by Me History Resident Physician Supervision Note: I interviewed and examined the patient. Discussed with Dr. Justin and agree with findings and plan as documented in the note. Any exceptions or clarifications are listed here: Pt and daughter report he seems to have a little more energy today. Pt himself is not very talkative though but daughter thinks he looks better. 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 -Appreciate Nephrology management--> continue HD, will need set up for outpt HD -Appreciate Cardiology input--> plan for stress ECHO when able -continue Doxy for 10 days -follow CBC and LFTs but all are improving -PT/OT and will likely need SNF--> PT/OT ordered DVT proph-no chemical proph due to thrombocytopenia--> can likely start tomorrow Documented By: Randa Monte
[2016-12-27] MEDS: DOXYCYCLINE HYCLATE 100 MG CAP PO SCH (20:13)
[2016-12-27] MEDS: ALFUZosin TAB 10 MG TAB PO SCH (20:14)
[2016-12-27] MEDS: POLYETHYLENE (MIRALAX) 17 GM PACK PO SCH (20:14)
[2016-12-27] MEDS: RANITIDINE HCL 150 MG TAB PO SCH (20:15)
[2016-12-27] MEDS: SIMVASTATIN 20 MG TAB PO SCH (20:15)
[2016-12-27] MEDS: BOOST BREEZE NUTRITION DRINK 1 BOX PO SCH (21:00)
[2016-12-28 04:17] VITALS: BP 164/77; PULSE 75; TEMP 36.4; O2SAT 93
[2016-12-28] MEDS: LEVOTHYROXINE 100 MCG TAB PO SCH (05:58)
[2016-12-28 06:51] LABS: HEMATOCRIT 32.3 % (42-52); MEAN CELL VOLUME 87.3 fL (80-100); MEAN CORPUSCULAR HGB CONC 34.4 g/dl (32-36); MEAN PLATELET VOLUME 9.9 fL (7.4-10.4); PLATELET COUNT 139 K/uL (130-400); WHITE BLOOD COUNT 6.66 K/uL (4.8-10.8)
[2016-12-28 07:25] VITALS: BP 165/75; PULSE 73; TEMP 36.5; O2SAT 96
[2016-12-28 07:30] LABS: BUN/CREATININE RATIO 16.2 (10-20); CALCIUM 8.2 mg/dl (8.5-10.1); CREATININE 6.3 mg/dl (0.60-1.40); POTASSIUM 4.1 mmol/L (3.5-5.1)
[2016-12-28] MEDS: AVODART~ORDER AWAITING ACTION SCH ×2 (09:21→16:00)
[2016-12-28] MEDS: DULOXETINE HCL 60 MG CAP PO SCH (09:21)
[2016-12-28] MEDS: CALCIUM 600MG + VIT D 400 IU TAB PO SCH ×2 (09:21→20:37)
[2016-12-28] MEDS: DOXYCYCLINE HYCLATE 100 MG CAP PO SCH ×2 (09:21→20:37)
[2016-12-28] MEDS: PANTOprazole SOD 40 MG TAB PO SCH (09:21)
[2016-12-28] MEDS: BOOST BREEZE NUTRITION DRINK 1 BOX PO SCH ×3 (09:21→20:36)
[2016-12-28] MEDS: CHOLECALCIFEROL 1000 INTER.UNIT TAB PO SCH (09:21)
[2016-12-28] MEDS: METOPROLOL SUCC 50MG EXT REL TAB PO SCH (09:21)
--- NOTE | 2016-12-28 09:24 | Nephrology Progress Note ---
Nephrology Progress Note Date of Service December 28, 2016. Chief Complaint Follow up evaluation of SHAMIR / oliguric ATN Subjective Mr. Gill was seen & examined in his hospital room this morning. He was awake & alert visiting with his daughter Renetta. He denied fever, rash, dyspnea , flank discomfort or uremic symptoms. The patient presented with pancytopenia. Review of blood smear by hematology revealed inclusion bodies within WBC's suggestive of Ehrlichiosis. Patient is now on Doxycycline therapy. Initial Ab studies for Ehrlichiosis and Anaplasmosis were negative 12/26/16. Hematology recommends repeat studies in 1 - 2 weeks. They have ordered PCR studies. Mr. Gill has SHAMIR. Urine microscopy revealed granular casts suggestive of ATN. He underwent R IJ THC insertion 12/24/16. His last dialysis was yesterday. He had dialysis for 3 hours w/ 2 L UF. There were no complications. Urine output was 1200 cc overnight. Review of Systems Constitutional: No fever Cardiovascular: No chest pain Respiratory: No dyspnea at rest Abdomen: No nausea, No pain Extremities: No leg edema A complete review of systems was performed. Pertinent positives are noted above. All other systems are negative. Vital Signs Last 8 Hrs Date Time Temp Pulse Resp B/P Pulse Ox O2 Delivery O2 Flow Rate FiO2 12/28/16 07:25 36.5 73 18 165/75 96 Room Air 12/28/16 04:17 36.4 75 18 164/77 93 Room Air 12/28/16 04:00 Room Air I & O 24-Hour Column 12/28/16 08:00 Intake Total 540 ml Output Total 2975 ml Balance -2435 ml Last Recorded Weight Weight (Kilograms): 92.400 Physical Exam General Appearance: no apparent distress Head: normocephalic, atraumatic Eyes: PERRL, EOMI Neck: no adenopathy, + pertinent finding (R IJ THC with clean dry dressing in place) Respiratory/Chest: lungs clear, no respiratory distress Cardiovascular: regular rate, rhythm Abdomen/GI: normal bowel sounds, non tender, soft Genitourinary - Male: + pertinent finding (dimas catheter in place draining clear yellow urine) Extremities/Musculoskelatal: no calf tenderness, no pedal edema Neurologic/Psych: alert, oriented x 3 Family History Patient reports no known family medical history. 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: retired Laboratory Results Past 24 Hours 12/28/16 06:33 12/28/16 06:33 Test 12/28/16 06:33 Red Blood Count 3.70 M/uL (4.7-6.1) Mean Corpuscular Volume 87.3 fL (80-100) Mean Corpuscular Hemoglobin 30.0 pg (25-34) Mean Corpuscular Hemoglobin Concent 34.4 g/dl (32-36) RDW Standard Deviation 46.4 fL (36.4-46.3) RDW Coefficient of Variation 14.5 % (11.5-14.5) Mean Platelet Volume 9.9 fL (7.4-10.4) Anion Gap 13.0 mmol/L (3-11) Est Creatinine Clear Calc Drug Dose 10.5 ml/min Estimated GFR () 8.9 Estimated GFR (Non- 7.7 BUN/Creatinine Ratio 16.2 (10-20) Calcium Level 8.2 mg/dl (8.5-10.1) Total Bilirubin 1.0 mg/dl (0.2-1) Direct Bilirubin 0.4 mg/dl (0-0.2) Aspartate Amino Transf (AST/SGOT) 93 U/L (15-37) Alanine Aminotransferase (ALT/SGPT) 164 U/L (12-78) Alkaline Phosphatase 66 U/L (45-117) Troponin I 1.170 ng/ml (0-0.045) Total Protein 6.2 gm/dl (6.4-8.2) Albumin 2.7 gm/dl (3.4-5.0) Allergies Coded Allergies: Erythromycin (Verified Allergy, Intermediate, THROAT BEGAN TO SWELL SHUT, 09/04/15) PT Atorvastatin (Verified Adverse Reaction, Intermediate, MYALGIAS, 12/27/16) PT/ALLSCRIPTS Lisinopril (Verified Adverse Reaction, Intermediate, COUGH, 09/04/15) Medications Current Inpatient Medications Medications (Trade) Dose Ordered Sig/Sheree Route Start Time Stop Time Status Last Admin Dose Admin Acetaminophen (Tylenol Tab) 650 mg Q4H PRN PO 12/20/16 22:00 01/19/17 21:59 12/27/16 17:41 650 MG Nitroglycerin (Nitrostat Tab) 0.4 mg UD PRN SL 12/20/16 22:00 01/19/17 21:59 Alfuzosin HCl (Uroxatral Tab) 10 mg HS PO 12/21/16 21:00 01/20/17 20:59 12/27/16 20:14 10 MG Calcium/Vitamin D (Caltrate Plus Tab) 1 tab BID PO 12/21/16 09:00 01/20/17 08:59 12/27/16 20:15 1 TAB Cholecalciferol (Vitamin D Tab) 1,000 inter.unit DAILY PO 12/21/16 09:00 01/20/17 08:59 12/27/16 07:29 1,000 INTER.UNIT Duloxetine HCl (Cymbalta Cap) 60 mg DAILY PO 12/21/16 09:00 01/20/17 08:59 12/27/16 07:29 60 MG Levothyroxine Sodium (Synthroid Tab) 100 mcg DAILYBB PO 12/21/16 06:00 01/20/17 06:59 12/28/16 05:58 100 MCG Metoprolol Succinate (Toprol Xl Tab) 50 mg DAILY PO 12/21/16 09:00 01/20/17 08:59 12/27/16 07:29 50 MG Polyethylene (Miralax Powder Packet) 17 gm HS PO 12/21/16 21:00 01/20/17 20:59 12/27/16 20:14 17 GM Ranitidine HCl (zANTac TAB) 150 mg HS PO 12/21/16 21:00 01/20/17 20:59 12/27/16 20:15 150 MG Simvastatin (Zocor Tab) 20 mg QPM PO 12/21/16 21:00 01/20/17 20:59 12/27/16 20:15 20 MG Loratadine (Claritin Tab) 10 mg QAM PRN PO 12/20/16 22:00 01/19/17 21:59 Miscellaneous Information (Order Awaiting Action) 1 ea QS N/A 12/21/16 00:00 01/20/17 00:00 Pantoprazole Sodium (Protonix Tab) 40 mg QAM PO 12/21/16 09:00 01/20/17 08:59 12/27/16 07:29 40 MG Miscellaneous Information (Order Awaiting Action) 1 ea QS N/A 12/21/16 00:00 01/20/17 00:00 Ondansetron HCl (Zofran Inj) 4 mg Q6H PRN IV 12/20/16 22:15 01/19/17 22:14 Doxycycline Hyclate (Vibramycin Cap) 100 mg BID PO 12/27/16 21:00 12/31/16 23:59 12/27/16 20:13 100 MG Enteral Nutritional Formula (Boost Breeze Nutritional Drink) 1 box TID PO 12/27/16 21:00 01/26/17 20:59 Hydralazine HCl (HydrALAZINE INJ) 10 mg Q6H PRN IV. 12/27/16 17:15 01/26/17 17:14 Impression (1) Acute renal insufficiency (2) Ehrlichiosis (3) Trigeminal neuralgia (4) Thrombocytopenia (5) Elevation of cardiac enzymes (6) Hypertension Mr. Bell is a 81-year-old male w/ HTN, OA, spinal stenosis, lumbar radiculopathy, post herpetic trigeminal neuralgia, BPH and h/o CVA. He presented w/ fevers, chills, urinary incontinence, generalized weakness, shortness of breath and left facial droop. Clinical diagnosis of Ehrlichiosis was made based on intracellular inclusions seen on peripheral smear by Hematology. Clinical improvement noted with doxycycline. Patient developed oliguric SHAMIR. Urine sediment revealed granular casts c/w ATN. Baseline creatinine has been 1.1 mg/dL. Patient is now nonoliguric but serum creatinine continues to increase in between HD treatments. Patient has persistent azotemia and metabolic acidosis. CT abdomen showed normal appearing kidneys without evidence of obstruction. Recommendations SHAMIR: -- Patient has converted to nonoliguric state. Will continue to monitor to kidney function. Volume status & electrolyte balance acceptable at this time. Will schedule next HD for am. -- R IJ THC placed 12/24/[address] Mills -- Medications appropriate for renal function. Continue to hold gabapentin, HCTZ and Losartan HEME: -- Pancytopenia. Peripheral smear revealed inclusion bodies in WBC's suggestive of Ehrlichiosis / Anaplasmosis -- Antibody studies for Ehrlichiosis and Anaplasmosis are negative 12/26/16. 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
--- NOTE | 2016-12-28 11:08 | Family Medicine Progress Note ---
Progress Note Date of Service December 28, 2016. Subjective Pt evaluation today including: conversation w/ patient, conversation w/ family , physical exam, chart review, lab review Pain: DENIES PAIN PO Intake: good Voiding: dimas catheter in place Doing better today. Appears more alert and awake. Had tolerated his breakfast. 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) ENT: No hearing loss Respiratory: No cough, No sputum Cardiovascular: No chest pain Abdomen: No nausea, No pain, No vomiting Neurologic: + problem reported (left side facial droop which is chronic), No memory loss, No paralysis, No weakness Medications Current Inpatient Medications Medications (Trade) Dose Ordered Sig/Sheree Route Start Time Stop Time Status Last Admin Dose Admin Acetaminophen (Tylenol Tab) 650 mg Q4H PRN PO 12/20/16 22:00 01/19/17 21:59 12/27/16 17:41 650 MG Nitroglycerin (Nitrostat Tab) 0.4 mg UD PRN SL 12/20/16 22:00 01/19/17 21:59 Alfuzosin HCl (Uroxatral Tab) 10 mg HS PO 12/21/16 21:00 01/20/17 20:59 12/27/16 20:14 10 MG Calcium/Vitamin D (Caltrate Plus Tab) 1 tab BID PO 12/21/16 09:00 01/20/17 08:59 12/28/16 09:21 1 TAB Cholecalciferol (Vitamin D Tab) 1,000 inter.unit DAILY PO 12/21/16 09:00 01/20/17 08:59 12/28/16 09:21 1,000 INTER.UNIT Duloxetine HCl (Cymbalta Cap) 60 mg DAILY PO 12/21/16 09:00 01/20/17 08:59 12/28/16 09:21 60 MG Levothyroxine Sodium (Synthroid Tab) 100 mcg DAILYBB PO 12/21/16 06:00 01/20/17 06:59 12/28/16 05:58 100 MCG Metoprolol Succinate (Toprol Xl Tab) 50 mg DAILY PO 12/21/16 09:00 01/20/17 08:59 12/28/16 09:21 50 MG Polyethylene (Miralax Powder Packet) 17 gm HS PO 12/21/16 21:00 01/20/17 20:59 12/27/16 20:14 17 GM Ranitidine HCl (zANTac TAB) 150 mg HS PO 12/21/16 21:00 01/20/17 20:59 12/27/16 20:15 150 MG Simvastatin (Zocor Tab) 20 mg QPM PO 12/21/16 21:00 01/20/17 20:59 12/27/16 20:15 20 MG Loratadine (Claritin Tab) 10 mg QAM PRN PO 12/20/16 22:00 01/19/17 21:59 Miscellaneous Information (Order Awaiting Action) 1 ea QS N/A 12/21/16 00:00 01/20/17 00:00 Pantoprazole Sodium (Protonix Tab) 40 mg QAM PO 12/21/16 09:00 01/20/17 08:59 12/28/16 09:21 40 MG Miscellaneous Information (Order Awaiting Action) 1 ea QS N/A 12/21/16 00:00 01/20/17 00:00 Ondansetron HCl (Zofran Inj) 4 mg Q6H PRN IV 12/20/16 22:15 01/19/17 22:14 Doxycycline Hyclate (Vibramycin Cap) 100 mg BID PO 12/27/16 21:00 12/31/16 23:59 12/28/16 09:21 100 MG Enteral Nutritional Formula (Boost Breeze Nutritional Drink) 1 box TID PO 12/27/16 21:00 01/26/17 20:59 12/28/16 09:21 1 BOX Hydralazine HCl (HydrALAZINE INJ) 10 mg Q6H PRN IV. 12/27/16 17:15 01/26/17 17:14 Heparin Sodium (Porcine) (Heparin Iv Bolus) 2,000 unit ONE IV 12/29/16 06:00 12/29/16 06:01 Heparin Sodium (Porcine) (Heparin Iv Bolus) 500 unit Q1H IV 12/29/16 06:00 12/29/16 07:01 Objective Vital Signs Date Time Temp Pulse Resp B/P Pulse Ox O2 Delivery O2 Flow Rate FiO2 12/28/16 08:00 Room Air 12/28/16 07:25 36.5 73 18 165/75 96 Room Air 12/28/16 04:17 36.4 75 18 164/77 93 Room Air 12/28/16 04:00 Room Air 12/27/16 23:59 Room Air 12/27/16 23:19 36.7 75 18 164/81 95 Room Air 12/27/16 20:00 Room Air 12/27/16 19:58 36.4 75 20 144/76 96 Room Air 12/27/16 16:07 Room Air 12/27/16 15:42 36.5 76 16 163/79 93 Room Air 12/27/16 12:34 Room Air 12/27/16 12:10 36.6 78 160/82 12/27/16 12:06 36.3 81 19 155/78 96 Room Air Physical Exam General Appearance: WD/WN, no apparent distress Eyes: normal inspection ENT: normal ENT inspection, hearing grossly normal Neck: supple Respiratory/Chest: chest non-tender, lungs clear, normal breath sounds, no respiratory distress, no accessory muscle use Cardiovascular: regular rate, rhythm Abdomen: normal bowel sounds, soft Neurologic/Psychiatric: alert, normal mood/affect, oriented x 3 Skin: normal color Laboratory Results 12/28/16 06:33 12/28/16 06:33 Test 12/28/16 06:33 Red Blood Count 3.70 M/uL (4.7-6.1) Mean Corpuscular Volume 87.3 fL (80-100) Mean Corpuscular Hemoglobin 30.0 pg (25-34) Mean Corpuscular Hemoglobin Concent 34.4 g/dl (32-36) RDW Standard Deviation 46.4 fL (36.4-46.3) RDW Coefficient of Variation 14.5 % (11.5-14.5) Mean Platelet Volume 9.9 fL (7.4-10.4) Anion Gap 13.0 mmol/L (3-11) Est Creatinine Clear Calc Drug Dose 10.5 ml/min Estimated GFR () 8.9 Estimated GFR (Non- 7.7 BUN/Creatinine Ratio 16.2 (10-20) Calcium Level 8.2 mg/dl (8.5-10.1) Total Bilirubin 1.0 mg/dl (0.2-1) Direct Bilirubin 0.4 mg/dl (0-0.2) Aspartate Amino Transf (AST/SGOT) 93 U/L (15-37) Alanine Aminotransferase (ALT/SGPT) 164 U/L (12-78) Alkaline Phosphatase 66 U/L (45-117) Troponin I 1.170 ng/ml (0-0.045) Total Protein 6.2 gm/dl (6.4-8.2) Albumin 2.7 gm/dl (3.4-5.0) Assessment and Plan 81 y/o M h/o HTN, BPH, asthma, GERD here with c/o fevers and chills started 3 days ago. He also noticed increased episodes of urinary incontinence and complained of fatigue and shortness of breath. Noted to be have elevated creatinine, troponin and low platelet on admission. Peripheral smear was obtained which revealed inclusion bodies consistent with ehrlichia/anaplasmosis. PCR confirmed anaplasmosis SHAMIR: Oliguric secondary to ATN s/p HDX2 - HD yesterday, creatinine today at 6.3 from 8.9 yesterday - Monitor creatinine - Continue to hold gabapentin, HCTZ and Losartan Anaplasmosis - Peripheral smear: Inclusion bodies consistent with ehrlichia/anaplasmosis - PCR confirmation of anaplasmosis - Thrombocytopenia, elevated liver enzymes- improving - Continue 100 mg doxycycline twice a day, day 7( Total of 10 days) - Lyme serology negative - ID consultation-appreciate input - Ehrlichia abs , anaplasmosis abs neg but confirmation obtained on PCR -Repeat Lyme serology as an outpatient Elevated troponins:? sec to small vessel disease versus myocarditis - Echo - negative for WMA - Cardiology on board - No cardiac intervention - Troponin trended down Initial troponin 13-->14.2--> 17--->18.5-->13.5--->8.08- ->6.08-->3.6-->2.2-->1.7 - stress echo before discharge Thrombocytopenia with coagulopathy: Resolved: Secondary to infection - s/p 2 unit platelet transfusion. Platelets 139 - No active bleeding - Hematology on board Elevated liver enzymes: Stable to improving - Secondary to infection - Will restart statin when LFTs are normal Hypotension: - resolved - continuing to hold antihypertensives due to renal function Hypertension: - Losartan and hydrochlorothiazide currently held due to SHAMIR -Norvasc 5 mg added - May use hydralazine when necessary Left sided facial droop: chronic with h/o postherpetic neuralgia - Was worked up for stroke with head CT, MRI which were unremarkable - Carotid ultrasound revealed right internal carotid stenosis 50-69% - Will continue aspirin, statin upon discharge Hypothyroidism: Continue Synthroid Peripheral neuropathy: - Gabapentin held GERD: - Continue home meds - CT: Moderate thickening of distal esophageal wall - EGD as an outpatient COPD -Continue nebs as needed BPH: - Continue finasteride, alfuzosin Depression - continue Cymbalta DVT prophylaxis: SCDs Heparin subcutaneous Full code Disposition: Telemetry Resident Tracking Resident Involvement: Resident Care Provided Care Provided: Adult Hospital Medicine Reviewed: Pt Seen/Exam by Me History Resident Physician Supervision Note: I interviewed and examined the patient. Discussed with Dr. Justin and agree with findings and plan as documented in the note. Any exceptions or clarifications are listed here: Much improved today. No complaints. 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 -Appreciate Nephrology management--> continue HD, will need acute rehabilitation with hemodialysis -Appreciate Cardiology input--> plan for stress ECHO when able -continue Doxy for 10 days -follow CBC and LFTs but all are improving -PT/OT and will likely need SNF--> PT/OT ordered -Blood pressure is elevated, start amlodipine -BPH-add his finasteride back in as dutasteride not available here DVT proph-start heparin Documented By: Randa Monte
[2016-12-28 11:40] VITALS: BP 138/74; PULSE 76; TEMP 36.5; O2SAT 98
--- NOTE | 2016-12-28 14:28 | Progress Note ---
Subjective Date of Service: December 28, 2016. Subjective pt tolerating hd, creat improving. tolerating doxy, remains afebrile. Labs continue to improve, LFTs slightly improved, platelets and wbc nml. Problem List Medical Problems: (1) Dyspnea on exertion Status: Acute (2) Elevated troponin Status: Acute (3) Left shoulder pain Status: Acute (4) Stroke-like symptoms Status: Acute Objective Vital Signs Date Time Temp Pulse Resp B/P Pulse Ox O2 Delivery O2 Flow Rate FiO2 12/28/16 12:00 Room Air 12/28/16 11:40 36.5 76 18 138/74 98 Room Air 12/28/16 08:00 Room Air 12/28/16 07:25 36.5 73 18 165/75 96 Room Air 12/28/16 04:17 36.4 75 18 164/77 93 Room Air 12/28/16 04:00 Room Air 12/27/16 23:59 Room Air 12/27/16 23:19 36.7 75 18 164/81 95 Room Air 12/27/16 20:00 Room Air 12/27/16 19:58 36.4 75 20 144/76 96 Room Air 12/27/16 16:07 Room Air 12/27/16 15:42 36.5 76 16 163/79 93 Room Air Laboratory Results Last 24 Hours Test 12/28/16 06:33 White Blood Count 6.66 K/uL Red Blood Count 3.70 M/uL Hemoglobin 11.1 g/dL Hematocrit 32.3 % Mean Corpuscular Volume 87.3 fL Mean Corpuscular Hemoglobin 30.0 pg Mean Corpuscular Hemoglobin Concent 34.4 g/dl RDW Standard Deviation 46.4 fL RDW Coefficient of Variation 14.5 % Platelet Count 139 K/uL Mean Platelet Volume 9.9 fL Sodium Level 143 mmol/L Potassium Level 4.1 mmol/L Chloride Level 107 mmol/L Carbon Dioxide Level 23 mmol/L Anion Gap 13.0 mmol/L Blood Urea Nitrogen 102 mg/dl Creatinine 6.30 mg/dl Est Creatinine Clear Calc Drug Dose 10.5 ml/min Estimated GFR () 8.9 Estimated GFR (Non- 7.7 BUN/Creatinine Ratio 16.2 Random Glucose 103 mg/dl Calcium Level 8.2 mg/dl Total Bilirubin 1.0 mg/dl Direct Bilirubin 0.4 mg/dl Aspartate Amino Transf (AST/SGOT) 93 U/L Alanine Aminotransferase (ALT/SGPT) 164 U/L Alkaline Phosphatase 66 U/L Troponin I 1.170 ng/ml Total Protein 6.2 gm/dl Albumin 2.7 gm/dl Assessment and Plan (1) Ehrlichiosis Assessment & Plan: continue doxy for 10 days total, ok to change to po when able. pt has been lethargic, dion may be contributing. for hd. Labs overall continue to improve. Continued [facility] stay due to: fever, multiple IV medications needed Discharge planning: home
[2016-12-28] MEDS ORDERED: AMLODIPINE BESYLATE 5 MG TAB PO ONE (14:30)
[2016-12-28 14:44] VITALS: BP 144/95; PULSE 74; TEMP 36.8; O2SAT 97
[2016-12-28] MEDS ORDERED: FINASTERIDE 5 MG TAB PO ONE (16:30)
--- NOTE | 2016-12-28 17:08 | Medical Student: [facility] ---
Med Student Progress Note Date of Service December 28, 2016. Subjective Pt evaluation today including: conversation w/ patient, conversation w/ family , physical exam, chart review, lab review, review of studies, review of inpatient medication list PO Intake: "Pretty good" ate half of breakfast this AM Spoke mostly with daughter to obtain a better understanding of Mr. Gill's HPI (presenting with fever, chills, aches, and weakness). Denies chest pain, dyspnea, and abdominal pain. Complains of headache yesterday relieved by Tylenol, but has not had one since. Denies nausea or vomiting. He states his appetite is "pretty good" and the daughter agrees. Mr Gill appears to be much more alert and oriented than when I first met him yesterday. Ambulates with assist from bed to chair. Review of Systems Constitutional: + fatigue, No chills, No fever Respiratory: No dyspnea at rest, No shortness of breath Cardiac: No chest pain Abdomen: No constipation, No diarrhea, No nausea, No pain, No vomiting Objective Vital Signs Date Time Temp Pulse Resp B/P Pulse Ox O2 Delivery O2 Flow Rate FiO2 12/28/16 16:00 Room Air 12/28/16 12:00 Room Air 12/28/16 11:40 36.5 76 18 138/74 98 Room Air 12/28/16 08:00 Room Air 12/28/16 07:25 36.5 73 18 165/75 96 Room Air 12/28/16 04:17 36.4 75 18 164/77 93 Room Air 12/28/16 04:00 Room Air 12/27/16 23:59 Room Air 12/27/16 23:19 36.7 75 18 164/81 95 Room Air 12/27/16 20:00 Room Air 12/27/16 19:58 36.4 75 20 144/76 96 Room Air Physical Exam General Appearance: WD/WN, no apparent distress Eyes: bilateral eyes normal inspection Respiratory/Chest: chest non-tender, lungs clear, normal breath sounds, no respiratory distress Cardiovascular: regular rate, rhythm, no edema, no gallop, no murmur Abdomen: normal bowel sounds, non tender, soft Extremities: no pedal edema Neurologic/Psychiatric: normal mood/affect, oriented x 3, + pertinent finding ( drowsy, delayed response to questions, answers no more than 2 or 3 words) Skin: warm/dry Laboratory Results Last 24 Hours Test 12/28/16 06:33 White Blood Count 6.66 K/uL Red Blood Count 3.70 M/uL Hemoglobin 11.1 g/dL Hematocrit 32.3 % Mean Corpuscular Volume 87.3 fL Mean Corpuscular Hemoglobin 30.0 pg Mean Corpuscular Hemoglobin Concent 34.4 g/dl RDW Standard Deviation 46.4 fL RDW Coefficient of Variation 14.5 % Platelet Count 139 K/uL Mean Platelet Volume 9.9 fL Sodium Level 143 mmol/L Potassium Level 4.1 mmol/L Chloride Level 107 mmol/L Carbon Dioxide Level 23 mmol/L Anion Gap 13.0 mmol/L Blood Urea Nitrogen 102 mg/dl Creatinine 6.30 mg/dl Est Creatinine Clear Calc Drug Dose 10.5 ml/min Estimated GFR () 8.9 Estimated GFR (Non- 7.7 BUN/Creatinine Ratio 16.2 Random Glucose 103 mg/dl Calcium Level 8.2 mg/dl Total Bilirubin 1.0 mg/dl Direct Bilirubin 0.4 mg/dl Aspartate Amino Transf (AST/SGOT) 93 U/L Alanine Aminotransferase (ALT/SGPT) 164 U/L Alkaline Phosphatase 66 U/L Troponin I 1.170 ng/ml Total Protein 6.2 gm/dl Albumin 2.7 gm/dl Medications Current Inpatient Medications Medications (Trade) Dose Ordered Sig/Sheree Route Start Time Stop Time Status Last Admin Dose Admin Acetaminophen (Tylenol Tab) 650 mg Q4H PRN PO 12/20/16 22:00 01/19/17 21:59 12/27/16 17:41 650 MG Nitroglycerin (Nitrostat Tab) 0.4 mg UD PRN SL 12/20/16 22:00 01/19/17 21:59 Alfuzosin HCl (Uroxatral Tab) 10 mg HS PO 12/21/16 21:00 01/20/17 20:59 12/27/16 20:14 10 MG Calcium/Vitamin D (Caltrate Plus Tab) 1 tab BID PO 12/21/16 09:00 01/20/17 08:59 12/28/16 09:21 1 TAB Cholecalciferol (Vitamin D Tab) 1,000 inter.unit DAILY PO 12/21/16 09:00 01/20/17 08:59 12/28/16 09:21 1,000 INTER.UNIT Duloxetine HCl (Cymbalta Cap) 60 mg DAILY PO 12/21/16 09:00 01/20/17 08:59 12/28/16 09:21 60 MG Levothyroxine Sodium (Synthroid Tab) 100 mcg DAILYBB PO 12/21/16 06:00 01/20/17 06:59 12/28/16 05:58 100 MCG Metoprolol Succinate (Toprol Xl Tab) 50 mg DAILY PO 12/21/16 09:00 01/20/17 08:59 12/28/16 09:21 50 MG Polyethylene (Miralax Powder Packet) 17 gm HS PO 12/21/16 21:00 01/20/17 20:59 12/27/16 20:14 17 GM Ranitidine HCl (zANTac TAB) 150 mg HS PO 12/21/16 21:00 01/20/17 20:59 12/27/16 20:15 150 MG Simvastatin (Zocor Tab) 20 mg QPM PO 12/21/16 21:00 01/20/17 20:59 12/27/16 20:15 20 MG Loratadine (Claritin Tab) 10 mg QAM PRN PO 12/20/16 22:00 01/19/17 21:59 Miscellaneous Information (Order Awaiting Action) 1 ea QS N/A 12/21/16 00:00 01/20/17 00:00 Pantoprazole Sodium (Protonix Tab) 40 mg QAM PO 12/21/16 09:00 01/20/17 08:59 12/28/16 09:21 40 MG Miscellaneous Information (Order Awaiting Action) 1 ea QS N/A 12/21/16 00:00 01/20/17 00:00 Ondansetron HCl (Zofran Inj) 4 mg Q6H PRN IV 12/20/16 22:15 01/19/17 22:14 Doxycycline Hyclate (Vibramycin Cap) 100 mg BID PO 12/27/16 21:00 12/31/16 23:59 12/28/16 09:21 100 MG Enteral Nutritional Formula (Boost Breeze Nutritional Drink) 1 box TID PO 12/27/16 21:00 01/26/17 20:59 12/28/16 14:09 1 BOX Hydralazine HCl (HydrALAZINE INJ) 10 mg Q6H PRN IV. 12/27/16 17:15 01/26/17 17:14 Heparin Sodium (Porcine) (Heparin Iv Bolus) 2,000 unit ONE IV 12/29/16 06:00 12/29/16 06:01 Heparin Sodium (Porcine) (Heparin Iv Bolus) 500 unit Q1H IV 12/29/16 06:00 12/29/16 07:01 Amlodipine Besylate (Norvasc Tab) 5 mg QAM PO 12/29/16 09:00 01/28/17 08:59 Finasteride (Proscar Tab) 5 mg QAM PO 12/29/16 09:00 01/28/17 08:59 Heparin Sodium (Porcine) (Heparin Sq 5000 Unit/0.5ml) 5,000 unit Q12 SQ 12/28/16 21:00 01/27/17 20:59 Assessment and Plan Assessment and Plan: 81 year old male with a Hx of GERD, asthma, hypertension, and BPH. Was admitted on 12/20 with fever, chills and fatigue. He developed an SHAMIR, anaplasmosis, thrombocytopenia, elevated liver enzymes, and elevated troponins secondary to a confirmed infection of Anaplasma phagocytophilum. SHAMIR -Hemodialysis improved creatinine levels. Another round not necessary at the moment. Continue to monitor creatinine. 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 Hydralazine is available PRN Left-sided facial droop/ peripheral neuropathy: -It is a pre-existing physical finding that Mr. Gill has had for several years following shingles with a history of postherpetic neuralgia. -Mr. Gill received a head CT and MRI as an initial workup for stroke. Each were read as unremarkable -A carotid ultrasound revealed right external carotid artery stenosis of 50-69%. -Resume the gabapentin for peripheral neuralgia once kidneys return to acceptable function. Hypothyroid -Continue levothyroxine BPH -continue finasteride and alfuzosin GERD -CT scan revealed a thickening of the lower esophagus -He can continue his home medications and needs an outpatient EGD to investigate the thickening for possible cancer. Continued [facility] stay due to: multiple IV medications needed, other (continue monitoring anaplasmosis, continue monitoring kidney function, continue treatment and monitoring for anaplasmosis) Discharge planning: home
[2016-12-28] MEDS ORDERED: NURSING VERBAL MED ORDER ONE (17:15)
[2016-12-28] MEDS ORDERED: BACITRACIN OINT 15 GM TUBE EXT PRN (17:30)
[2016-12-28 20:08] VITALS: BP 152/71; PULSE 66; TEMP 36.4; O2SAT 94
[2016-12-28] MEDS: SIMVASTATIN 20 MG TAB PO SCH (20:37)
[2016-12-28] MEDS: POLYETHYLENE (MIRALAX) 17 GM PACK PO SCH (20:37)
[2016-12-28] MEDS: ALFUZosin TAB 10 MG TAB PO SCH (20:37)
[2016-12-28] MEDS: RANITIDINE HCL 150 MG TAB PO SCH (20:37)
[2016-12-28] MEDS: HEPARIN SOD 5000 UNIT/0.5 ML CARP SQ SCH (20:38)
[2016-12-28 23:45] VITALS: BP 166/74; PULSE 66; TEMP 36.3; O2SAT 97
[2016-12-29] VITALS (27 sets, daily range): BP systolic 101–163; BP diastolic 63–89; PULSE 56–78; TEMP 36.4–36.8; O2SAT 94–95
[2016-12-29] MEDS: LEVOTHYROXINE 100 MCG TAB PO SCH (05:57)
[2016-12-29] MEDS ORDERED: HEPARIN SOD (PORCINE) 1000 UNIT/ML 10 ML VIAL IV SCH ×2 (06:00)
[2016-12-29 07:14] LABS: HEMATOCRIT 30.2 % (42-52); MEAN CELL VOLUME 87.8 fL (80-100); MEAN CORPUSCULAR HEMOGLOBIN 30.8 pg (25-34); MEAN CORPUSCULAR HGB CONC 35.1 g/dl (32-36); MEAN PLATELET VOLUME 9.5 fL (7.4-10.4); PLATELET COUNT 162 K/uL (130-400); RED BLOOD COUNT 3.44 M/uL (4.7-6.1); WHITE BLOOD COUNT 7.25 K/uL (4.8-10.8)
[2016-12-29] MEDS: BOOST BREEZE NUTRITION DRINK 1 BOX PO SCH ×3 (07:23→20:39)
[2016-12-29] MEDS: CALCIUM 600MG + VIT D 400 IU TAB PO SCH ×2 (07:24→20:31)
[2016-12-29] MEDS: PANTOprazole SOD 40 MG TAB PO SCH (07:25)
[2016-12-29] MEDS: AMLODIPINE BESYLATE 5 MG TAB PO SCH (07:25)
[2016-12-29] MEDS: FINASTERIDE 5 MG TAB PO SCH (07:25)
[2016-12-29] MEDS: DULOXETINE HCL 60 MG CAP PO SCH (07:25)
[2016-12-29] MEDS: CHOLECALCIFEROL 1000 INTER.UNIT TAB PO SCH (07:26)
[2016-12-29] MEDS: METOPROLOL SUCC 50MG EXT REL TAB PO SCH (07:26)
[2016-12-29] MEDS: DOXYCYCLINE HYCLATE 100 MG CAP PO SCH ×2 (07:26→20:30)
[2016-12-29 08:28] LABS: BUN/CREATININE RATIO 17.9 (10-20); CALCIUM 8.2 mg/dl (8.5-10.1); POTASSIUM 4.2 mmol/L (3.5-5.1)
--- NOTE | 2016-12-29 08:56 | Nephrology Progress Note ---
Nephrology Progress Note Date of Service December 29, 2016. Chief Complaint Follow up evaluation of SHAMIR / oliguric ATN Subjective Mr. Gill was seen & examined in his hospital room this morning. He was alert & oriented x 3. He denied fever, rash, dyspnea, flank discomfort or uremic symptoms. He sat up in a chair yesterday and expressed a desire to begin physical therapy. The patient presented with pancytopenia. Review of blood smear by hematology revealed inclusion bodies within WBC's. PCR studies confirmed Anaplasmosis. Patient is now on Doxycycline therapy. Mr. Gill has SHAMIR. Urine microscopy revealed granular casts suggestive of ATN. He underwent R IJ THC insertion 12/24/16. He is scheduled for HD today. He is now nonoliguric. Serum creatinine has begun to trend down. Patient still has profound azotemia Review of Systems Constitutional: No fever Cardiovascular: No chest pain Respiratory: No dyspnea at rest Abdomen: No nausea, No pain, No vomiting Extremities: No leg edema A complete review of systems was performed. Pertinent positives are noted above. All other systems are negative. Vital Signs Last 8 Hrs Date Time Temp Pulse Resp B/P Pulse Ox O2 Delivery O2 Flow Rate FiO2 12/29/16 07:32 36.8 65 18 156/71 95 Room Air 12/29/16 07:30 Room Air 12/29/16 04:20 69 157/71 12/29/16 04:00 36.8 69 18 163/73 95 Room Air 12/29/16 03:40 Room Air I & O 24-Hour Column 12/29/16 08:00 Intake Total 905 ml Output Total 1450 ml Balance -545 ml Last Recorded Weight Weight (Kilograms): 92.200 Physical Exam General Appearance: no apparent distress Head: normocephalic, atraumatic Eyes: PERRL, EOMI Neck: no adenopathy, + pertinent finding (R IJ THC with clean dry dressing in place) Respiratory/Chest: lungs clear, no respiratory distress Cardiovascular: regular rate, rhythm Abdomen/GI: normal bowel sounds, non tender, soft Genitourinary - Male: + pertinent finding (dimas catheter in place draining clear yellow urine) Extremities/Musculoskelatal: no calf tenderness, no pedal edema Neurologic/Psych: alert, oriented x 3 Family History Patient reports no known family medical history. 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: retired Laboratory Results Past 24 Hours 12/29/16 07:00 12/29/16 07:00 Test 12/29/16 07:00 Red Blood Count 3.44 M/uL (4.7-6.1) Mean Corpuscular Volume 87.8 fL (80-100) Mean Corpuscular Hemoglobin 30.8 pg (25-34) Mean Corpuscular Hemoglobin Concent 35.1 g/dl (32-36) RDW Standard Deviation 46.0 fL (36.4-46.3) RDW Coefficient of Variation 14.3 % (11.5-14.5) Mean Platelet Volume 9.5 fL (7.4-10.4) Anion Gap 10.0 mmol/L (3-11) Est Creatinine Clear Calc Drug Dose 11.0 ml/min Estimated GFR () 9.5 Estimated GFR (Non- 8.2 BUN/Creatinine Ratio 17.9 (10-20) Calcium Level 8.2 mg/dl (8.5-10.1) Total Bilirubin 0.9 mg/dl (0.2-1) Direct Bilirubin 0.3 mg/dl (0-0.2) Aspartate Amino Transf (AST/SGOT) 55 U/L (15-37) Alanine Aminotransferase (ALT/SGPT) 129 U/L (12-78) Alkaline Phosphatase 61 U/L (45-117) Troponin I 0.790 ng/ml (0-0.045) Total Protein 6.1 gm/dl (6.4-8.2) Albumin 2.6 gm/dl (3.4-5.0) Allergies Coded Allergies: Erythromycin (Verified Allergy, Intermediate, THROAT BEGAN TO SWELL SHUT, 09/04/15) PT Atorvastatin (Verified Adverse Reaction, Intermediate, MYALGIAS, 12/27/16) PT/ALLSCRIPTS Lisinopril (Verified Adverse Reaction, Intermediate, COUGH, 09/04/15) Medications Current Inpatient Medications Medications (Trade) Dose Ordered Sig/Sheree Route Start Time Stop Time Status Last Admin Dose Admin Acetaminophen (Tylenol Tab) 650 mg Q4H PRN PO 12/20/16 22:00 01/19/17 21:59 12/27/16 17:41 650 MG Nitroglycerin (Nitrostat Tab) 0.4 mg UD PRN SL 12/20/16 22:00 01/19/17 21:59 Alfuzosin HCl (Uroxatral Tab) 10 mg HS PO 12/21/16 21:00 01/20/17 20:59 12/28/16 20:37 10 MG Calcium/Vitamin D (Caltrate Plus Tab) 1 tab BID PO 12/21/16 09:00 01/20/17 08:59 12/29/16 07:24 1 TAB Cholecalciferol (Vitamin D Tab) 1,000 inter.unit DAILY PO 12/21/16 09:00 01/20/17 08:59 12/29/16 07:26 1,000 INTER.UNIT Duloxetine HCl (Cymbalta Cap) 60 mg DAILY PO 12/21/16 09:00 01/20/17 08:59 12/29/16 07:25 60 MG Levothyroxine Sodium (Synthroid Tab) 100 mcg DAILYBB PO 12/21/16 06:00 01/20/17 06:59 12/29/16 05:57 100 MCG Metoprolol Succinate (Toprol Xl Tab) 50 mg DAILY PO 12/21/16 09:00 01/20/17 08:59 12/29/16 07:26 50 MG Polyethylene (Miralax Powder Packet) 17 gm HS PO 12/21/16 21:00 01/20/17 20:59 12/28/16 20:37 17 GM Ranitidine HCl (zANTac TAB) 150 mg HS PO 12/21/16 21:00 01/20/17 20:59 12/28/16 20:37 150 MG Simvastatin (Zocor Tab) 20 mg QPM PO 12/21/16 21:00 01/20/17 20:59 12/28/16 20:37 20 MG Loratadine (Claritin Tab) 10 mg QAM PRN PO 12/20/16 22:00 01/19/17 21:59 Miscellaneous Information (Order Awaiting Action) 1 ea QS N/A 12/21/16 00:00 01/20/17 00:00 Pantoprazole Sodium (Protonix Tab) 40 mg QAM PO 12/21/16 09:00 01/20/17 08:59 12/29/16 07:25 40 MG Miscellaneous Information (Order Awaiting Action) 1 ea QS N/A 12/21/16 00:00 01/20/17 00:00 Ondansetron HCl (Zofran Inj) 4 mg Q6H PRN IV 12/20/16 22:15 01/19/17 22:14 Doxycycline Hyclate (Vibramycin Cap) 100 mg BID PO 12/27/16 21:00 12/31/16 23:59 12/29/16 07:26 100 MG Enteral Nutritional Formula (Boost Breeze Nutritional Drink) 1 box TID PO 12/27/16 21:00 01/26/17 20:59 12/29/16 07:23 1 BOX Hydralazine HCl (HydrALAZINE INJ) 10 mg Q6H PRN IV. 12/27/16 17:15 01/26/17 17:14 Amlodipine Besylate (Norvasc Tab) 5 mg QAM PO 12/29/16 09:00 01/28/17 08:59 12/29/16 07:25 5 MG Finasteride (Proscar Tab) 5 mg QAM PO 12/29/16 09:00 01/28/17 08:59 12/29/16 07:25 5 MG Heparin Sodium (Porcine) (Heparin Sq 5000 Unit/0.5ml) 5,000 unit Q12 SQ 12/28/16 21:00 01/27/17 20:59 12/28/16 20:38 5,000 UNIT Bacitracin (Bacitracin Oint) 1 appln Q8H PRN EXT 12/28/16 17:30 01/27/17 17:29 Impression (1) Acute renal insufficiency (2) Ehrlichiosis (3) Trigeminal neuralgia (4) Thrombocytopenia (5) Elevation of cardiac enzymes (6) Hypertension Mr. Bell is a 81-year-old male w/ HTN, OA, spinal stenosis, lumbar radiculopathy, post herpetic trigeminal neuralgia, BPH and h/o CVA. He presented w/ fevers, chills, urinary incontinence, generalized weakness, shortness of breath and left facial droop. Peripheral blood smear revealed WBC intracellular inclusions. 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 Clinical improvement noted with doxycycline. Patient developed oliguric SHAMIR. Urine sediment revealed granular casts c/w ATN. Baseline creatinine has been 1.1 mg/dL. Patient is now nonoliguric but serum creatinine continues to increase in between HD treatments. Patient has persistent azotemia and metabolic acidosis. CT abdomen showed normal appearing kidneys without evidence of obstruction. Recommendations SHAMIR: -- Patient is nonoliguric. Creatinine has begun to trend downward. He may be entering the recovery phase of ATN but still has significant azotemia. Will provide HD today and continue to monitor for recovery -- R IJ THC placed 12/24/[address] Mills -- Medications appropriate for renal function. Continue to hold gabapentin, HCTZ and Losartan HEME: -- Pancytopenia. Peripheral smear revealed inclusion bodies in WBC's suggestive of Ehrlichiosis / Anaplasmosis -- Antibody studies for Ehrlichiosis and Anaplasmosis are negative 12/26/16. PCR study is positive for Anaplasmosis -- No evidence of TMA -- Hematology following CV: -- Admitted w/ elevated troponin -- Cardiology consult reviewed -- Suspected manifestation of diffuse small vessel injury ID: -- Positive for Anaplasmosis by PCR -- ID consult reviewed -- Day #8 of 10 Doxycycline OTHER: -- D/C dimas catheter and encourage use of urinal -- Consider d/c telemetry and move to medical floor -- Recommend PT evaluation for strengthening / ambulation
--- NOTE | 2016-12-29 10:50 | Family Medicine Progress Note ---
Progress Note Date of Service December 29, 2016. Subjective Pt evaluation today including: conversation w/ patient, physical exam, chart review, lab review Pain: denies pain PO Intake: good Doing better today. Appears more alert and awake , sitting in chair next to bed. He states that he still feels tired but is definitely improved than yesterday. Denies any chest pain, difficulty breathing, fevers or chills, rashes Constitutional: No chills, No fever Eyes: + problem reported (left eye visual disturbance secondary to herpes), No worsening of vision Respiratory: No cough Cardiovascular: No chest pain Abdomen: No nausea, No pain, No vomiting Musculoskeletal: No joint pain Male : No dysuria Neurologic: No memory loss Psychiatric: No depression symptoms Heme: No abnormal bleeding/bruising Skin: No rash Medications Current Inpatient Medications Medications (Trade) Dose Ordered Sig/Sheree Route Start Time Stop Time Status Last Admin Dose Admin Acetaminophen (Tylenol Tab) 650 mg Q4H PRN PO 12/20/16 22:00 01/19/17 21:59 12/27/16 17:41 650 MG Nitroglycerin (Nitrostat Tab) 0.4 mg UD PRN SL 12/20/16 22:00 01/19/17 21:59 Alfuzosin HCl (Uroxatral Tab) 10 mg HS PO 12/21/16 21:00 01/20/17 20:59 12/28/16 20:37 10 MG Calcium/Vitamin D (Caltrate Plus Tab) 1 tab BID PO 12/21/16 09:00 01/20/17 08:59 12/29/16 07:24 1 TAB Cholecalciferol (Vitamin D Tab) 1,000 inter.unit DAILY PO 12/21/16 09:00 01/20/17 08:59 12/29/16 07:26 1,000 INTER.UNIT Duloxetine HCl (Cymbalta Cap) 60 mg DAILY PO 12/21/16 09:00 01/20/17 08:59 12/29/16 07:25 60 MG Levothyroxine Sodium (Synthroid Tab) 100 mcg DAILYBB PO 12/21/16 06:00 01/20/17 06:59 12/29/16 05:57 100 MCG Metoprolol Succinate (Toprol Xl Tab) 50 mg DAILY PO 12/21/16 09:00 01/20/17 08:59 12/29/16 07:26 50 MG Polyethylene (Miralax Powder Packet) 17 gm HS PO 12/21/16 21:00 01/20/17 20:59 12/28/16 20:37 17 GM Ranitidine HCl (zANTac TAB) 150 mg HS PO 12/21/16 21:00 01/20/17 20:59 12/28/16 20:37 150 MG Simvastatin (Zocor Tab) 20 mg QPM PO 12/21/16 21:00 01/20/17 20:59 12/28/16 20:37 20 MG Loratadine (Claritin Tab) 10 mg QAM PRN PO 12/20/16 22:00 01/19/17 21:59 Miscellaneous Information (Order Awaiting Action) 1 ea QS N/A 12/21/16 00:00 01/20/17 00:00 Pantoprazole Sodium (Protonix Tab) 40 mg QAM PO 12/21/16 09:00 01/20/17 08:59 12/29/16 07:25 40 MG Miscellaneous Information (Order Awaiting Action) 1 ea QS N/A 12/21/16 00:00 01/20/17 00:00 Ondansetron HCl (Zofran Inj) 4 mg Q6H PRN IV 12/20/16 22:15 01/19/17 22:14 Doxycycline Hyclate (Vibramycin Cap) 100 mg BID PO 12/27/16 21:00 12/31/16 23:59 12/29/16 07:26 100 MG Enteral Nutritional Formula (Boost Breeze Nutritional Drink) 1 box TID PO 12/27/16 21:00 01/26/17 20:59 12/29/16 07:23 1 BOX Hydralazine HCl (HydrALAZINE INJ) 10 mg Q6H PRN IV. 12/27/16 17:15 01/26/17 17:14 Amlodipine Besylate (Norvasc Tab) 5 mg QAM PO 12/29/16 09:00 01/28/17 08:59 12/29/16 07:25 5 MG Finasteride (Proscar Tab) 5 mg QAM PO 12/29/16 09:00 01/28/17 08:59 12/29/16 07:25 5 MG Heparin Sodium (Porcine) (Heparin Sq 5000 Unit/0.5ml) 5,000 unit Q12 SQ 12/28/16 21:00 01/27/17 20:59 12/28/16 20:38 5,000 UNIT Bacitracin (Bacitracin Oint) 1 appln Q8H PRN EXT 12/28/16 17:30 01/27/17 17:29 Objective Vital Signs Date Time Temp Pulse Resp B/P Pulse Ox O2 Delivery O2 Flow Rate FiO2 12/29/16 16:00 94 Room Air 12/29/16 15:31 36.4 71 16 154/89 94 Room Air 12/29/16 15:01 36.6 73 159/83 12/29/16 14:54 56 159/83 12/29/16 14:45 77 137/74 12/29/16 14:30 73 132/83 12/29/16 14:15 75 138/80 12/29/16 14:00 76 130/74 12/29/16 13:45 78 137/87 12/29/16 13:30 72 140/70 12/29/16 13:15 73 124/68 12/29/16 13:00 68 135/79 12/29/16 12:45 73 125/75 12/29/16 12:30 72 140/70 12/29/16 12:15 72 144/73 12/29/16 12:00 72 132/75 12/29/16 11:45 67 128/67 12/29/16 11:30 66 121/69 12/29/16 11:15 71 101/63 12/29/16 11:00 64 119/63 12/29/16 10:48 62 155/76 12/29/16 10:45 36.6 66 124/73 12/29/16 07:32 36.8 65 18 156/71 95 Room Air 12/29/16 07:30 Room Air 12/29/16 04:20 69 157/71 12/29/16 04:00 36.8 69 18 163/73 95 Room Air 12/29/16 03:40 Room Air 12/29/16 00:20 66 155/74 12/28/16 23:45 36.3 66 18 166/74 97 Room Air 12/28/16 23:30 Room Air 12/28/16 20:08 36.4 66 16 152/71 94 Room Air 12/28/16 20:00 Room Air Physical Exam General Appearance: WD/WN, no apparent distress Eyes: normal inspection ENT: normal ENT inspection, hearing grossly normal Neck: supple Respiratory/Chest: chest non-tender, lungs clear, normal breath sounds Cardiovascular: regular rate, rhythm Abdomen: normal bowel sounds, non tender, soft Extremities: normal range of motion, non-tender, no pedal edema Neurologic/Psychiatric: alert, normal mood/affect, oriented x 3, + pertinent finding (left-sided facial droop- chronic) Skin: normal color, warm/dry Assessment and Plan 81 y/o M h/o HTN, BPH, asthma, GERD here with c/o fevers and chills started 3 days ago. He also noticed increased episodes of urinary incontinence and complained of fatigue and shortness of breath. Noted to be have elevated creatinine, troponin and low platelet on admission. Peripheral smear was obtained which revealed inclusion bodies consistent with ehrlichia/anaplasmosis. PCR confirmed anaplasmosis SHAMIR: Oliguric secondary to ATN s/p HDX2 - creatinine today at 6.0 from 6.3 yesterday - Scheduled for dialysis today due to elevated BUN - Monitor creatinine - Continue to hold gabapentin, HCTZ and Losartan Anaplasmosis - Peripheral smear: Inclusion bodies consistent with ehrlichia/anaplasmosis - PCR confirmation of anaplasmosis - Thrombocytopenia, elevated liver enzymes- improving - Continue 100 mg doxycycline twice a day, day 8( Total of 10 days) - Lyme serology negative - ID consultation-appreciate input - Ehrlichia abs , anaplasmosis abs neg but confirmation obtained on PCR -Repeat Lyme serology as an outpatient Elevated troponins:? sec to small vessel disease versus myocarditis: trending down - Echo - negative for WMA - Cardiology on board - No cardiac intervention - Troponin trended down Initial troponin 13-->14.2--> 17--->18.5-->13.5--->8.08- ->6.08-->3.6-->2.2-->1.7 - stress echo before discharge Thrombocytopenia with coagulopathy:Secondary to infection- continues to improve - s/p 2 unit platelet transfusion. Platelets 162 - No active bleeding - Hematology on board Elevated liver enzymes: Stable to improving - Secondary to infection - Will restart statin when LFTs are normal Hypotension: - resolved - continuing to hold antihypertensives due to renal function Hypertension: - Losartan and hydrochlorothiazide currently held due to SHAMIR -Norvasc 5 mg added - May use hydralazine when necessary Left sided facial droop: chronic with h/o postherpetic neuralgia - Was worked up for stroke with head CT, MRI which were unremarkable - Carotid ultrasound revealed right internal carotid stenosis 50-69% - Will restart statin upon discharge - Restart aspirin today Hypothyroidism: Continue Synthroid Peripheral neuropathy: - Gabapentin held GERD: - Continue home meds - CT: Moderate thickening of distal esophageal wall - EGD as an outpatient COPD -Continue nebs as needed BPH: - Continue finasteride, alfuzosin -DC Bynum today Depression - continue Cymbalta DVT prophylaxis: SCDs Heparin subcutaneous Full code Disposition: Transfer to [facility] Resident Tracking Resident Involvement: Resident Care Provided Care Provided: Adult Hospital Medicine Reviewed: Pt Seen/Exam by Me History Resident Physician Supervision Note: I interviewed and examined the patient. Discussed with Dr. Justin and agree with findings and plan as documented in the note. Any exceptions or clarifications are listed here: Continues to improve, more energy, renal function improving, making good urine output Tele and vitals reviewed Appears ill, tired RRR no mgr CTAB no wcr ABd soft NT ND +BS Ext no edema, no effusions Skin no rashes, TIJ catheter site without drainage or surrounding erythema 81 yo male with Anaplasmosis confirmed by inclusion bodies on peripheral smear and +PCR of blood, with thrombocytopenia, myocarditis, elevated transaminases, and SHAMIR requiring HD secondary to ATN with granular casts. -Appreciate Nephrology management--> continue HD but may be able to stop this prior to discharge, will need acute rehabilitation with hemodialysis if needs continued hemodialysis -Appreciate Cardiology input--> plan for stress ECHO when able-perhaps as an inpatient -continue Doxy for 10 days total -follow CBC and LFTs but all are improving -PT/OT and will likely need SNF--> PT/OT ordered -Blood pressure was elevated, started amlodipine and is improving -BPH-added his finasteride back in as dutasteride not available here DVT proph-heparin Documented By: Randa Monte
[2016-12-29] MEDS: AVODART~ORDER AWAITING ACTION SCH ×4 (13:16→23:31)
[2016-12-29] MEDS: HEPARIN SOD 5000 UNIT/0.5 ML CARP SQ SCH ×2 (13:16→20:56)
--- NOTE | 2016-12-29 14:49 | Progress Note ---
Subjective Date of Service: December 29, 2016. Subjective labs continue to improve on day 8/10 of doxy, tolerating well. remains afebrile. continues with hd, creat improving. Lfts continue to improve but remain slightly elevated. wbc and platelets recovered and are nml. no overnight events. Problem List Medical Problems: (1) Dyspnea on exertion Status: Acute (2) Elevated troponin Status: Acute (3) Left shoulder pain Status: Acute (4) Stroke-like symptoms Status: Acute Objective Vital Signs Date Time Temp Pulse Resp B/P Pulse Ox O2 Delivery O2 Flow Rate FiO2 12/29/16 14:30 73 132/83 12/29/16 14:15 75 138/80 12/29/16 14:00 76 130/74 12/29/16 13:45 78 137/87 12/29/16 13:30 72 140/70 12/29/16 13:15 73 124/68 12/29/16 13:00 68 135/79 12/29/16 12:45 73 125/75 12/29/16 12:30 72 140/70 12/29/16 12:15 72 144/73 12/29/16 12:00 72 132/75 12/29/16 11:45 67 128/67 12/29/16 11:30 66 121/69 12/29/16 11:15 71 101/63 12/29/16 11:00 64 119/63 12/29/16 10:48 62 155/76 12/29/16 10:45 36.6 66 124/73 12/29/16 07:32 36.8 65 18 156/71 95 Room Air 12/29/16 07:30 Room Air 12/29/16 04:20 69 157/71 12/29/16 04:00 36.8 69 18 163/73 95 Room Air 12/29/16 03:40 Room Air 12/29/16 00:20 66 155/74 12/28/16 23:45 36.3 66 18 166/74 97 Room Air 12/28/16 23:30 Room Air 12/28/16 20:08 36.4 66 16 152/71 94 Room Air 12/28/16 20:00 Room Air 12/28/16 16:00 Room Air Laboratory Results Last 24 Hours Test 12/29/16 07:00 White Blood Count 7.25 K/uL Red Blood Count 3.44 M/uL Hemoglobin 10.6 g/dL Hematocrit 30.2 % Mean Corpuscular Volume 87.8 fL Mean Corpuscular Hemoglobin 30.8 pg Mean Corpuscular Hemoglobin Concent 35.1 g/dl RDW Standard Deviation 46.0 fL RDW Coefficient of Variation 14.3 % Platelet Count 162 K/uL Mean Platelet Volume 9.5 fL Sodium Level 141 mmol/L Potassium Level 4.2 mmol/L Chloride Level 106 mmol/L Carbon Dioxide Level 25 mmol/L Anion Gap 10.0 mmol/L Blood Urea Nitrogen 105 mg/dl Creatinine 6.00 mg/dl Est Creatinine Clear Calc Drug Dose 11.0 ml/min Estimated GFR () 9.5 Estimated GFR (Non- 8.2 BUN/Creatinine Ratio 17.9 Random Glucose 105 mg/dl Calcium Level 8.2 mg/dl Total Bilirubin 0.9 mg/dl Direct Bilirubin 0.3 mg/dl Aspartate Amino Transf (AST/SGOT) 55 U/L Alanine Aminotransferase (ALT/SGPT) 129 U/L Alkaline Phosphatase 61 U/L Troponin I 0.790 ng/ml Total Protein 6.1 gm/dl Albumin 2.6 gm/dl Assessment and Plan (1) Anaplasmosis Assessment & Plan: pcr +, serologies negative. continue doxy as planned. follow labs, continue to improve. Continued [facility] stay due to: multiple IV medications needed, other (continue monitoring anaplasmosis, continue monitoring kidney function, continue treatment and monitoring for anaplasmosis) Discharge planning: home
[2016-12-29] MEDS ORDERED: ASPIRIN 81 MG CHEW PO ONE ×2 (18:38→21:15)
[2016-12-29] MEDS: RANITIDINE HCL 150 MG TAB PO SCH (20:29)
[2016-12-29] MEDS: POLYETHYLENE (MIRALAX) 17 GM PACK PO SCH (20:30)
[2016-12-29] MEDS: SIMVASTATIN 20 MG TAB PO SCH (20:31)
[2016-12-29] MEDS: ALFUZosin TAB 10 MG TAB PO SCH (20:31)
[2016-12-30] MEDS: LEVOTHYROXINE 100 MCG TAB PO SCH (06:03)
[2016-12-30 06:28] LABS: HEMATOCRIT 34.4 % (42-52); MEAN CELL VOLUME 88.9 fL (80-100); MEAN CORPUSCULAR HEMOGLOBIN 29.5 pg (25-34); MEAN CORPUSCULAR HGB CONC 33.1 g/dl (32-36); MEAN PLATELET VOLUME 9.8 fL (7.4-10.4); PLATELET COUNT 163 K/uL (130-400); RED BLOOD COUNT 3.87 M/uL (4.7-6.1); WHITE BLOOD COUNT 8.33 K/uL (4.8-10.8)
[2016-12-30 06:56] LABS: BUN/CREATININE RATIO 15.5 (10-20); CREATININE 3.7 mg/dl (0.60-1.40); POTASSIUM 4.4 mmol/L (3.5-5.1)
[2016-12-30 07:03] LABS: CALCIUM 8.6 mg/dl (8.5-10.1)
[2016-12-30 07:10] VITALS: BP 161/77; PULSE 71; TEMP 36.3; O2SAT 97
[2016-12-30] MEDS: BOOST BREEZE NUTRITION DRINK 1 BOX PO SCH ×3 (07:46→20:00)
[2016-12-30] MEDS: AVODART~ORDER AWAITING ACTION SCH ×3 (07:46→23:43)
[2016-12-30] MEDS: CALCIUM 600MG + VIT D 400 IU TAB PO SCH ×2 (07:47→20:07)
[2016-12-30] MEDS: AMLODIPINE BESYLATE 5 MG TAB PO SCH (07:47)
[2016-12-30] MEDS: DOXYCYCLINE HYCLATE 100 MG CAP PO SCH ×2 (07:47→20:05)
[2016-12-30] MEDS: ASPIRIN 81 MG ECTAB PO SCH (07:47)
[2016-12-30] MEDS: DULOXETINE HCL 60 MG CAP PO SCH (07:47)
[2016-12-30] MEDS: METOPROLOL SUCC 50MG EXT REL TAB PO SCH (07:47)
[2016-12-30] MEDS: PANTOprazole SOD 40 MG TAB PO SCH (07:48)
[2016-12-30] MEDS: CHOLECALCIFEROL 1000 INTER.UNIT TAB PO SCH (07:48)
[2016-12-30] MEDS: FINASTERIDE 5 MG TAB PO SCH (07:48)
[2016-12-30] MEDS: HEPARIN SOD 5000 UNIT/0.5 ML CARP SQ SCH ×2 (07:55→20:07)
--- NOTE | 2016-12-30 09:33 | Nephrology Progress Note ---
Nephrology Progress Note Date of Service December 30, 2016. Chief Complaint Follow up evaluation of SHAMIR / oliguric ATN Subjective Mr. Gill was seen & examined in his hospital room this morning. He was alert & oriented x 3. He denied fever, rash, dyspnea, flank discomfort or uremic symptoms. He was moved to the medical floor yesterday and has begun physical therapy. His dimas catheter was removed. He is able to void without difficulty The patient presented with pancytopenia. Review of blood smear by hematology revealed inclusion bodies within WBC's. PCR studies confirmed Anaplasmosis. Patient is now on Doxycycline therapy. Mr. Gill has SHAMIR. Urine microscopy revealed granular casts suggestive of ATN. He underwent R IJ THC insertion 12/24/16. He was dialyzed for 4 hours yesterday without complication. Creatinine has dropped in response to dialysis therapy. Review of Systems Constitutional: No fever Cardiovascular: No chest pain Respiratory: No dyspnea at rest Abdomen: No nausea, No pain, No vomiting Genitourinary - Male: No dysuria, No urinary hesitancy Extremities: No leg edema A complete review of systems was performed. Pertinent positives are noted above. All other systems are negative. Vital Signs Last 8 Hrs Date Time Temp Pulse Resp B/P Pulse Ox O2 Delivery O2 Flow Rate FiO2 12/30/16 08:00 Room Air 12/30/16 07:10 36.3 71 16 161/77 97 Room Air I & O 24-Hour Column 12/30/16 07:59 Output Total 1000 ml Balance -1000 ml Last Recorded Weight Weight (Kilograms): 93.400 Physical Exam General Appearance: no apparent distress Head: normocephalic, atraumatic Eyes: PERRL, EOMI Neck: supple, no adenopathy Respiratory/Chest: lungs clear Cardiovascular: regular rate, rhythm Abdomen/GI: normal bowel sounds, non tender, soft Extremities/Musculoskelatal: no calf tenderness, no pedal edema Neurologic/Psych: alert, oriented x 3 Family History Patient reports no known family medical history. 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: retired Laboratory Results Past 24 Hours 12/30/16 05:50 12/30/16 05:50 Test 12/30/16 05:50 Red Blood Count 3.87 M/uL (4.7-6.1) Mean Corpuscular Volume 88.9 fL (80-100) Mean Corpuscular Hemoglobin 29.5 pg (25-34) Mean Corpuscular Hemoglobin Concent 33.1 g/dl (32-36) RDW Standard Deviation 46.2 fL (36.4-46.3) RDW Coefficient of Variation 14.3 % (11.5-14.5) Mean Platelet Volume 9.8 fL (7.4-10.4) Anion Gap 9.0 mmol/L (3-11) Est Creatinine Clear Calc Drug Dose 18.0 ml/min Estimated GFR () 17.0 Estimated GFR (Non- 14.7 BUN/Creatinine Ratio 15.5 (10-20) Calcium Level 8.6 mg/dl (8.5-10.1) Total Bilirubin 1.0 mg/dl (0.2-1) Direct Bilirubin 0.3 mg/dl (0-0.2) Aspartate Amino Transf (AST/SGOT) 46 U/L (15-37) Alanine Aminotransferase (ALT/SGPT) 113 U/L (12-78) Alkaline Phosphatase 65 U/L (45-117) Troponin I 0.631 ng/ml (0-0.045) Total Protein 6.3 gm/dl (6.4-8.2) Albumin 2.9 gm/dl (3.4-5.0) Allergies Coded Allergies: Erythromycin (Verified Allergy, Intermediate, THROAT BEGAN TO SWELL SHUT, 09/04/15) PT Atorvastatin (Verified Adverse Reaction, Intermediate, MYALGIAS, 12/27/16) PT/ALLSCRIPTS Lisinopril (Verified Adverse Reaction, Intermediate, COUGH, 09/04/15) Medications Current Inpatient Medications Medications (Trade) Dose Ordered Sig/Sheree Route Start Time Stop Time Status Last Admin Dose Admin Acetaminophen (Tylenol Tab) 650 mg Q4H PRN PO 12/20/16 22:00 01/19/17 21:59 12/27/16 17:41 650 MG Nitroglycerin (Nitrostat Tab) 0.4 mg UD PRN SL 12/20/16 22:00 01/19/17 21:59 Alfuzosin HCl (Uroxatral Tab) 10 mg HS PO 12/21/16 21:00 01/20/17 20:59 12/29/16 20:31 10 MG Calcium/Vitamin D (Caltrate Plus Tab) 1 tab BID PO 12/21/16 09:00 01/20/17 08:59 12/30/16 07:47 1 TAB Cholecalciferol (Vitamin D Tab) 1,000 inter.unit DAILY PO 12/21/16 09:00 01/20/17 08:59 12/30/16 07:48 1,000 INTER.UNIT Duloxetine HCl (Cymbalta Cap) 60 mg DAILY PO 12/21/16 09:00 01/20/17 08:59 12/30/16 07:47 60 MG Levothyroxine Sodium (Synthroid Tab) 100 mcg DAILYBB PO 12/21/16 06:00 01/20/17 06:59 12/30/16 06:03 100 MCG Metoprolol Succinate (Toprol Xl Tab) 50 mg DAILY PO 12/21/16 09:00 01/20/17 08:59 12/30/16 07:47 50 MG Polyethylene (Miralax Powder Packet) 17 gm HS PO 12/21/16 21:00 01/20/17 20:59 12/29/16 20:30 17 GM Ranitidine HCl (zANTac TAB) 150 mg HS PO 12/21/16 21:00 01/20/17 20:59 12/29/16 20:29 150 MG Simvastatin (Zocor Tab) 20 mg QPM PO 12/21/16 21:00 01/20/17 20:59 12/29/16 20:31 20 MG Loratadine (Claritin Tab) 10 mg QAM PRN PO 12/20/16 22:00 01/19/17 21:59 Miscellaneous Information (Order Awaiting Action) 1 ea QS N/A 12/21/16 00:00 01/20/17 00:00 Pantoprazole Sodium (Protonix Tab) 40 mg QAM PO 12/21/16 09:00 01/20/17 08:59 12/30/16 07:48 40 MG Miscellaneous Information (Order Awaiting Action) 1 ea QS N/A 12/21/16 00:00 01/20/17 00:00 Ondansetron HCl (Zofran Inj) 4 mg Q6H PRN IV 12/20/16 22:15 01/19/17 22:14 Doxycycline Hyclate (Vibramycin Cap) 100 mg BID PO 12/27/16 21:00 12/31/16 23:59 12/30/16 07:47 100 MG Enteral Nutritional Formula (Boost Breeze Nutritional Drink) 1 box TID PO 12/27/16 21:00 01/26/17 20:59 12/30/16 07:46 1 BOX Hydralazine HCl (HydrALAZINE INJ) 10 mg Q6H PRN IV. 12/27/16 17:15 01/26/17 17:14 Amlodipine Besylate (Norvasc Tab) 5 mg QAM PO 12/29/16 09:00 01/28/17 08:59 12/30/16 07:47 5 MG Finasteride (Proscar Tab) 5 mg QAM PO 12/29/16 09:00 01/28/17 08:59 12/30/16 07:48 5 MG Heparin Sodium (Porcine) (Heparin Sq 5000 Unit/0.5ml) 5,000 unit Q12 SQ 12/28/16 21:00 01/27/17 20:59 12/30/16 07:55 5,000 UNIT Bacitracin (Bacitracin Oint) 1 appln Q8H PRN EXT 12/28/16 17:30 01/27/17 17:29 Aspirin (Ecotrin Tab) 81 mg QAM PO 12/30/16 08:00 01/29/17 07:59 12/30/16 07:47 81 MG Impression (1) Acute renal insufficiency (2) Ehrlichiosis (3) Trigeminal neuralgia (4) Thrombocytopenia (5) Elevation of cardiac enzymes (6) Hypertension Mr. Bell is a 81-year-old male w/ HTN, OA, spinal stenosis, lumbar radiculopathy, post herpetic trigeminal neuralgia, BPH and h/o CVA. He presented w/ fevers, chills, urinary incontinence, generalized weakness, shortness of breath and left facial droop. Peripheral blood smear revealed WBC intracellular inclusions. 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 Clinical improvement noted with doxycycline. Patient developed oliguric SHAMIR. Urine sediment revealed granular casts c/w ATN. Baseline creatinine has been 1.1 mg/dL. Patient is now nonoliguric but serum creatinine continues to increase in between HD treatments. Patient has persistent azotemia and metabolic acidosis. CT abdomen showed normal appearing kidneys without evidence of obstruction. Recommendations SHAMIR: -- Patient is nonoliguric. Creatinine has begun to trend downward. He may be entering the recovery phase of ATN but still has significant azotemia. Will recheck kidney function in am. -- R IJ THC placed 12/24/[address] Mills -- Medications appropriate for renal function. Continue to hold gabapentin, HCTZ and Losartan HEME: -- Pancytopenia. Peripheral smear revealed inclusion bodies in WBC's suggestive of Ehrlichiosis / Anaplasmosis -- Antibody studies for Ehrlichiosis and Anaplasmosis are negative 12/26/16. PCR study is positive for Anaplasmosis -- No evidence of TMA -- Hematology following CV: -- Admitted w/ elevated troponin -- Cardiology consult reviewed -- Suspected manifestation of diffuse small vessel injury ID: -- Positive for Anaplasmosis by PCR -- ID consult reviewed -- Day # 9 of 10 Doxycycline OTHER: -- Continue PT for strengthening / ambulation
[2016-12-30 15:41] VITALS: BP 130/68; PULSE 68; TEMP 36.4; O2SAT 97
--- NOTE | 2016-12-30 17:57 | Medical Student: [facility] ---
Med Student Progress Note Date of Service December 30, 2016. Subjective Pt evaluation today including: conversation w/ patient, physical exam, chart review, lab review, review of studies, review of inpatient medication list Voiding: no voiding problems Mr. 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 When I spoke to Kane this morning, it was actually the most talkative he has been since I've started following him. Previously, I could only get 1 or 2 word answers from him, and it would take 4 or 5 seconds for him to formulate a response. I ended up conversing with Mr. Gill for about an hour. However, he wasn't feeling well. He couldn't specify a problem, but instead felt poorly "all over." His appetite is not good. He did not eat dinner last night and ate only a few bites of breakfast. He denies headache, shortness of breath, chest pain, abdominal pain, fever, or chills. His Bynum was removed and he ambulates to the toilet with no problems on his own. During our conversation, he did suffer a quick bout of nausea after coughing, but did not vomit. His nurse gave him Zofran for the nausea. Review of Systems Constitutional: No chills, No fever, No sweats Eyes: No worsening of vision ENT: No hearing loss Respiratory: + cough (just the one bout of coughing followed by nausea. Has cough drops), No dyspnea at rest, No dyspnea on exertion, No shortness of breath , No wheezing Cardiac: No chest pain, No claudication, No edema, No orthopnea Abdomen: No constipation, No diarrhea, No nausea, No pain, No vomiting Musculoskeletal: No calf pain, No joint pain, No muscle pain, No swelling Male : No dysuria, No incontinence Heme: No abnormal bleeding/bruising, No night sweats Skin: + rash, No itch Objective Vital Signs Date Time Temp Pulse Resp B/P Pulse Ox O2 Delivery O2 Flow Rate FiO2 12/30/16 16:00 Room Air 12/30/16 15:41 36.4 68 18 130/68 97 Room Air 12/30/16 08:00 Room Air 12/30/16 07:10 36.3 71 16 161/77 97 Room Air 12/30/16 00:00 Room Air 12/29/16 23:15 36.6 65 18 127/68 95 Room Air Physical Exam General Appearance: WD/WN, no apparent distress Eyes: bilateral eyes normal inspection ENT: normal ENT inspection, hearing grossly normal Respiratory/Chest: chest non-tender, lungs clear, normal breath sounds, no respiratory distress, no accessory muscle use Cardiovascular: regular rate, rhythm, no edema, no gallop, no murmur Abdomen: normal bowel sounds, non tender, soft, no organomegaly, no pulsatile mass Extremities: non-tender, no pedal edema, no calf tenderness Skin: + rash (bilaterally on lower back. Nurses applied lotion to affected area.) Laboratory Results Last 24 Hours Test 12/30/16 05:50 White Blood Count 8.33 K/uL Red Blood Count 3.87 M/uL Hemoglobin 11.4 g/dL Hematocrit 34.4 % Mean Corpuscular Volume 88.9 fL Mean Corpuscular Hemoglobin 29.5 pg Mean Corpuscular Hemoglobin Concent 33.1 g/dl RDW Standard Deviation 46.2 fL RDW Coefficient of Variation 14.3 % Platelet Count 163 K/uL Mean Platelet Volume 9.8 fL Sodium Level 140 mmol/L Potassium Level 4.4 mmol/L Chloride Level 107 mmol/L Carbon Dioxide Level 24 mmol/L Anion Gap 9.0 mmol/L Blood Urea Nitrogen 58 mg/dl Creatinine 3.70 mg/dl Est Creatinine Clear Calc Drug Dose 18.0 ml/min Estimated GFR () 17.0 Estimated GFR (Non- 14.7 BUN/Creatinine Ratio 15.5 Random Glucose 97 mg/dl Calcium Level 8.6 mg/dl Total Bilirubin 1.0 mg/dl Direct Bilirubin 0.3 mg/dl Aspartate Amino Transf (AST/SGOT) 46 U/L Alanine Aminotransferase (ALT/SGPT) 113 U/L Alkaline Phosphatase 65 U/L Troponin I 0.631 ng/ml Total Protein 6.3 gm/dl Albumin 2.9 gm/dl Medications Current Inpatient Medications Medications (Trade) Dose Ordered Sig/Sheree Route Start Time Stop Time Status Last Admin Dose Admin Acetaminophen (Tylenol Tab) 650 mg Q4H PRN PO 12/20/16 22:00 01/19/17 21:59 12/27/16 17:41 650 MG Nitroglycerin (Nitrostat Tab) 0.4 mg UD PRN SL 12/20/16 22:00 01/19/17 21:59 Alfuzosin HCl (Uroxatral Tab) 10 mg HS PO 12/21/16 21:00 01/20/17 20:59 12/29/16 20:31 10 MG Calcium/Vitamin D (Caltrate Plus Tab) 1 tab BID PO 12/21/16 09:00 01/20/17 08:59 12/30/16 07:47 1 TAB Cholecalciferol (Vitamin D Tab) 1,000 inter.unit DAILY PO 12/21/16 09:00 01/20/17 08:59 12/30/16 07:48 1,000 INTER.UNIT Duloxetine HCl (Cymbalta Cap) 60 mg DAILY PO 12/21/16 09:00 01/20/17 08:59 12/30/16 07:47 60 MG Levothyroxine Sodium (Synthroid Tab) 100 mcg DAILYBB PO 12/21/16 06:00 01/20/17 06:59 12/30/16 06:03 100 MCG Metoprolol Succinate (Toprol Xl Tab) 50 mg DAILY PO 12/21/16 09:00 01/20/17 08:59 12/30/16 07:47 50 MG Polyethylene (Miralax Powder Packet) 17 gm HS PO 12/21/16 21:00 01/20/17 20:59 12/29/16 20:30 17 GM Ranitidine HCl (zANTac TAB) 150 mg HS PO 12/21/16 21:00 01/20/17 20:59 12/29/16 20:29 150 MG Simvastatin (Zocor Tab) 20 mg QPM PO 12/21/16 21:00 01/20/17 20:59 12/29/16 20:31 20 MG Loratadine (Claritin Tab) 10 mg QAM PRN PO 12/20/16 22:00 01/19/17 21:59 Miscellaneous Information (Order Awaiting Action) 1 ea QS N/A 12/21/16 00:00 01/20/17 00:00 Pantoprazole Sodium (Protonix Tab) 40 mg QAM PO 12/21/16 09:00 01/20/17 08:59 12/30/16 07:48 40 MG Miscellaneous Information (Order Awaiting Action) 1 ea QS N/A 12/21/16 00:00 01/20/17 00:00 Ondansetron HCl (Zofran Inj) 4 mg Q6H PRN IV 12/20/16 22:15 01/19/17 22:14 12/30/16 10:38 4 MG Doxycycline Hyclate (Vibramycin Cap) 100 mg BID PO 12/27/16 21:00 12/31/16 23:59 12/30/16 07:47 100 MG Enteral Nutritional Formula (Boost Breeze Nutritional Drink) 1 box TID PO 12/27/16 21:00 01/26/17 20:59 12/30/16 07:46 1 BOX Hydralazine HCl (HydrALAZINE INJ) 10 mg Q6H PRN IV. 12/27/16 17:15 01/26/17 17:14 Amlodipine Besylate (Norvasc Tab) 5 mg QAM PO 12/29/16 09:00 01/28/17 08:59 12/30/16 07:47 5 MG Finasteride (Proscar Tab) 5 mg QAM PO 12/29/16 09:00 01/28/17 08:59 12/30/16 07:48 5 MG Heparin Sodium (Porcine) (Heparin Sq 5000 Unit/0.5ml) 5,000 unit Q12 SQ 12/28/16 21:00 01/27/17 20:59 12/30/16 07:55 5,000 UNIT Bacitracin (Bacitracin Oint) 1 appln Q8H PRN EXT 12/28/16 17:30 01/27/17 17:29 Aspirin (Ecotrin Tab) 81 mg QAM PO 12/30/16 08:00 01/29/17 07:59 12/30/16 07:47 81 MG Assessment and Plan Assessment and Plan: 81 year old male with a Hx of GERD, asthma, hypertension, and BPH. Was admitted on 12/20 with fever, chills and fatigue. He developed an SHAMIR, anaplasmosis, thrombocytopenia, elevated liver enzymes, and elevated troponins secondary to a confirmed infection of Anaplasma phagocytophilum. SHAMIR -Hemodialysis improved creatinine levels. Another round not necessary at the moment. Continue to monitor creatinine. 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 Gill has had for several years following shingles with a history of postherpetic neuralgia. -Mr. Gill received a head CT and MRI as an initial workup for stroke. Each were read as unremarkable -A carotid ultrasound revealed right external carotid artery stenosis of 50-69%. -Resume the gabapentin for peripheral neuralgia once kidneys return to acceptable function. Hypothyroid -Continue levothyroxine BPH -continue finasteride and alfuzosin GERD -CT scan revealed a thickening of the lower esophagus -He can continue his home medications and needs an outpatient EGD to investigate the thickening for possible cancer. Continued [facility] stay due to: abnormal vital signs, multiple IV medications needed, other (continue monitoring anaplasmosis, continue monitoring kidney function, continue treatment and monitoring for anaplasmosis) Discharge planning: home
--- NOTE | 2016-12-30 19:03 | Family Medicine Progress Note ---
Progress Note Date of Service December 30, 2016. Subjective Pt evaluation today including: conversation w/ patient, physical exam, chart review, lab review Pain: Denies pain Voiding: no voiding problems Complains of feeling depressed and tired. Denies any fevers or chills, chest pain, shortness of breath Constitutional: No chills, No fever Eyes: + problem reported (Left-sided visual disturbances related to herpes) ENT: + hearing loss Respiratory: No cough, No sputum, No wheezing Cardiovascular: No chest pain Abdomen: No nausea, No pain, No vomiting Musculoskeletal: No joint pain Male : No dysuria Neurologic: No memory loss, No numbness/tingling, No weakness Psychiatric: + depression symptoms Heme: No abnormal bleeding/bruising Endo: No fatigue Medications Current Inpatient Medications Medications (Trade) Dose Ordered Sig/Sheree Route Start Time Stop Time Status Last Admin Dose Admin Acetaminophen (Tylenol Tab) 650 mg Q4H PRN PO 12/20/16 22:00 01/19/17 21:59 12/27/16 17:41 650 MG Nitroglycerin (Nitrostat Tab) 0.4 mg UD PRN SL 12/20/16 22:00 01/19/17 21:59 Alfuzosin HCl (Uroxatral Tab) 10 mg HS PO 12/21/16 21:00 01/20/17 20:59 12/29/16 20:31 10 MG Calcium/Vitamin D (Caltrate Plus Tab) 1 tab BID PO 12/21/16 09:00 01/20/17 08:59 12/30/16 07:47 1 TAB Cholecalciferol (Vitamin D Tab) 1,000 inter.unit DAILY PO 12/21/16 09:00 01/20/17 08:59 12/30/16 07:48 1,000 INTER.UNIT Duloxetine HCl (Cymbalta Cap) 60 mg DAILY PO 12/21/16 09:00 01/20/17 08:59 12/30/16 07:47 60 MG Levothyroxine Sodium (Synthroid Tab) 100 mcg DAILYBB PO 12/21/16 06:00 01/20/17 06:59 12/30/16 06:03 100 MCG Metoprolol Succinate (Toprol Xl Tab) 50 mg DAILY PO 12/21/16 09:00 01/20/17 08:59 12/30/16 07:47 50 MG Polyethylene (Miralax Powder Packet) 17 gm HS PO 12/21/16 21:00 01/20/17 20:59 12/29/16 20:30 17 GM Ranitidine HCl (zANTac TAB) 150 mg HS PO 12/21/16 21:00 01/20/17 20:59 12/29/16 20:29 150 MG Simvastatin (Zocor Tab) 20 mg QPM PO 12/21/16 21:00 01/20/17 20:59 12/29/16 20:31 20 MG Loratadine (Claritin Tab) 10 mg QAM PRN PO 12/20/16 22:00 01/19/17 21:59 Miscellaneous Information (Order Awaiting Action) 1 ea QS N/A 12/21/16 00:00 01/20/17 00:00 Pantoprazole Sodium (Protonix Tab) 40 mg QAM PO 12/21/16 09:00 01/20/17 08:59 12/30/16 07:48 40 MG Miscellaneous Information (Order Awaiting Action) 1 ea QS N/A 12/21/16 00:00 01/20/17 00:00 Ondansetron HCl (Zofran Inj) 4 mg Q6H PRN IV 12/20/16 22:15 01/19/17 22:14 12/30/16 10:38 4 MG Doxycycline Hyclate (Vibramycin Cap) 100 mg BID PO 12/27/16 21:00 12/31/16 23:59 12/30/16 07:47 100 MG Enteral Nutritional Formula (Boost Breeze Nutritional Drink) 1 box TID PO 12/27/16 21:00 01/26/17 20:59 12/30/16 07:46 1 BOX Hydralazine HCl (HydrALAZINE INJ) 10 mg Q6H PRN IV. 12/27/16 17:15 01/26/17 17:14 Amlodipine Besylate (Norvasc Tab) 5 mg QAM PO 12/29/16 09:00 01/28/17 08:59 12/30/16 07:47 5 MG Finasteride (Proscar Tab) 5 mg QAM PO 12/29/16 09:00 01/28/17 08:59 12/30/16 07:48 5 MG Heparin Sodium (Porcine) (Heparin Sq 5000 Unit/0.5ml) 5,000 unit Q12 SQ 12/28/16 21:00 01/27/17 20:59 12/30/16 07:55 5,000 UNIT Bacitracin (Bacitracin Oint) 1 appln Q8H PRN EXT 12/28/16 17:30 01/27/17 17:29 Aspirin (Ecotrin Tab) 81 mg QAM PO 12/30/16 08:00 01/29/17 07:59 12/30/16 07:47 81 MG Objective Vital Signs Date Time Temp Pulse Resp B/P Pulse Ox O2 Delivery O2 Flow Rate FiO2 12/30/16 16:00 Room Air 12/30/16 15:41 36.4 68 18 130/68 97 Room Air 12/30/16 08:00 Room Air 12/30/16 07:10 36.3 71 16 161/77 97 Room Air 12/30/16 00:00 Room Air 12/29/16 23:15 36.6 65 18 127/68 95 Room Air Physical Exam General Appearance: WD/WN, no apparent distress Eyes: normal inspection ENT: normal ENT inspection Neck: supple Respiratory/Chest: chest non-tender, lungs clear, normal breath sounds, no respiratory distress, no accessory muscle use Cardiovascular: regular rate, rhythm Abdomen: normal bowel sounds, non tender, soft Extremities: non-tender, no pedal edema Neurologic/Psychiatric: alert, oriented x 3, + depressed affect Skin: + rash (Lower back area) Laboratory Results 12/30/16 05:50 12/30/16 05:50 Test 12/30/16 05:50 Red Blood Count 3.87 M/uL (4.7-6.1) Mean Corpuscular Volume 88.9 fL (80-100) Mean Corpuscular Hemoglobin 29.5 pg (25-34) Mean Corpuscular Hemoglobin Concent 33.1 g/dl (32-36) RDW Standard Deviation 46.2 fL (36.4-46.3) RDW Coefficient of Variation 14.3 % (11.5-14.5) Mean Platelet Volume 9.8 fL (7.4-10.4) Anion Gap 9.0 mmol/L (3-11) Est Creatinine Clear Calc Drug Dose 18.0 ml/min Estimated GFR () 17.0 Estimated GFR (Non- 14.7 BUN/Creatinine Ratio 15.5 (10-20) Calcium Level 8.6 mg/dl (8.5-10.1) Total Bilirubin 1.0 mg/dl (0.2-1) Direct Bilirubin 0.3 mg/dl (0-0.2) Aspartate Amino Transf (AST/SGOT) 46 U/L (15-37) Alanine Aminotransferase (ALT/SGPT) 113 U/L (12-78) Alkaline Phosphatase 65 U/L (45-117) Troponin I 0.631 ng/ml (0-0.045) Total Protein 6.3 gm/dl (6.4-8.2) Albumin 2.9 gm/dl (3.4-5.0) Assessment and Plan 81 y/o M h/o HTN, BPH, asthma, GERD here with c/o fevers and chills started 3 days ago. He also noticed increased episodes of urinary incontinence and complained of fatigue and shortness of breath. Noted to be have elevated creatinine, troponin and low platelet on admission. Peripheral smear was obtained which revealed inclusion bodies consistent with ehrlichia/anaplasmosis. PCR confirmed anaplasmosis. Underwent another session about this yesterday which he tolerated well. Complaints of depression today SHAMIR: Oliguric secondary to ATN s/p HDX3 - creatinine today at 3.7 from 6 yesterday - Monitor creatinine - Continue to hold gabapentin, HCTZ and Losartan Anaplasmosis - Peripheral smear: Inclusion bodies consistent with ehrlichia/anaplasmosis - PCR confirmation of anaplasmosis - Thrombocytopenia, elevated liver enzymes- improving - Continue 100 mg doxycycline twice a day, day 9( Total of 10 days) - Lyme serology negative - ID consultation-appreciate input - Ehrlichia abs , anaplasmosis abs neg but confirmation obtained on PCR - Will repeat Lyme serology tomorrow -Repeat Lyme serology as an outpatient Elevated troponins:? sec to small vessel disease versus myocarditis: trending down - Echo - negative for WMA - Cardiology on board - No cardiac intervention - Troponin trended down Initial troponin 13-->14.2--> 17--->18.5-->13.5--->8.08- ->6.08-->3.6-->2.2-->1.7 - Echo ordered - stress echo before discharge Thrombocytopenia with coagulopathy:Secondary to infection- continues to improve - s/p 2 unit platelet transfusion. Platelets 163 - No active bleeding Elevated liver enzymes: Stable to improving - Secondary to infection - Will restart statin when LFTs are normal Hypotension: - resolved - continuing to hold antihypertensives due to renal function Hypertension: - Losartan and hydrochlorothiazide currently held due to SHAMIR -Norvasc 5 mg added - May use hydralazine when necessary Left sided facial droop: chronic with h/o postherpetic neuralgia - Was worked up for stroke with head CT, MRI which were unremarkable - Carotid ultrasound revealed right internal carotid stenosis 50-69% - Will restart statin upon discharge - Restart aspirin today Hypothyroidism: Continue Synthroid Peripheral neuropathy: - Gabapentin held GERD: - Continue home meds - CT: Moderate thickening of distal esophageal wall - EGD as an outpatient COPD -Continue nebs as needed BPH: - Continue finasteride, alfuzosin Depression - continue Cymbalta, Currently on 60 mg Consider increasing to 90 mg DVT prophylaxis: SCDs Heparin subcutaneous Full code Disposition: [facility] Resident Tracking Resident Involvement: Resident Care Provided Care Provided: Adult Hospital Medicine Reviewed: Pt Seen/Exam by Me History Resident Physician Supervision Note: I interviewed and examined the patient. Discussed with Dr. Justin and agree with findings and plan as documented in the note. 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 -Appreciate Nephrology management--> continue HD but may be able to stop this prior to discharge, will need acute rehabilitation with hemodialysis if needs continued hemodialysis -Appreciate Cardiology input--> plan for stress ECHO when able-perhaps as an inpatient, will check resting echo today to see if changed since admission as per cardiology recommendations -continue Doxy for 10 days total and extend course if Lyme titer positive tomorrow -follow CBC and LFTs but all are improving -PT/OT and will likely need SNF--> PT/OT ordered -Blood pressure was elevated, started amlodipine and is improving -BPH-added his finasteride back in as dutasteride not available here DVT proph-heparin Documented By: Randa Monte
[2016-12-30 20:00] VITALS: O2SAT 97
[2016-12-30] MEDS: POLYETHYLENE (MIRALAX) 17 GM PACK PO SCH (20:05)
[2016-12-30] MEDS: SIMVASTATIN 20 MG TAB PO SCH (20:06)
[2016-12-30] MEDS: ALFUZosin TAB 10 MG TAB PO SCH (20:06)
[2016-12-30] MEDS: RANITIDINE HCL 150 MG TAB PO SCH (20:07)
[2016-12-30 23:21] VITALS: BP 171/71; PULSE 64; TEMP 36.7; O2SAT 95
[2016-12-31] VITALS (24 sets, daily range): BP systolic 133–186; BP diastolic 70–96; PULSE 64–91; TEMP 35.7–36.5; O2SAT 95–98
[2016-12-31] MEDS: LEVOTHYROXINE 100 MCG TAB PO SCH (06:12)
[2016-12-31 06:44] LABS: HEMATOCRIT 34.2 % (42-52); MEAN CELL VOLUME 89.1 fL (80-100); MEAN CORPUSCULAR HEMOGLOBIN 30.2 pg (25-34); MEAN CORPUSCULAR HGB CONC 33.9 g/dl (32-36); MEAN PLATELET VOLUME 9.1 fL (7.4-10.4); PLATELET COUNT 169 K/uL (130-400); RED BLOOD COUNT 3.84 M/uL (4.7-6.1); WHITE BLOOD COUNT 9.66 K/uL (4.8-10.8)
[2016-12-31] MEDS: AVODART~ORDER AWAITING ACTION SCH ×3 (07:10→22:40)
[2016-12-31 07:35] LABS: BUN/CREATININE RATIO 16.3 (10-20); CALCIUM 8.9 mg/dl (8.5-10.1); CREATININE 4.3 mg/dl (0.60-1.40); POTASSIUM 5.2 mmol/L (3.5-5.1)
[2016-12-31] MEDS: BOOST BREEZE NUTRITION DRINK 1 BOX PO SCH ×3 (08:00→20:00)
[2016-12-31] MEDS ORDERED: PERFLUTREN LIPID MICROSPHERE (DEFINITY) IV ONE (08:36)
[2016-12-31] MEDS: CALCIUM 600MG + VIT D 400 IU TAB PO SCH ×2 (08:53→20:33)
[2016-12-31] MEDS: CHOLECALCIFEROL 1000 INTER.UNIT TAB PO SCH (08:53)
[2016-12-31] MEDS: ASPIRIN 81 MG ECTAB PO SCH (08:53)
[2016-12-31] MEDS: DULOXETINE HCL 60 MG CAP PO SCH (08:54)
[2016-12-31] MEDS: PANTOprazole SOD 40 MG TAB PO SCH (08:54)
[2016-12-31] MEDS: FINASTERIDE 5 MG TAB PO SCH (08:54)
[2016-12-31] MEDS: HEPARIN SOD 5000 UNIT/0.5 ML CARP SQ SCH ×2 (08:57→21:13)
--- NOTE | 2016-12-31 09:37 | Nephrology Progress Note ---
Nephrology Progress Note Date of Service December 31, 2016. Chief Complaint Follow up evaluation of SHAMIR / oliguric ATN Subjective Mr. Gill was seen & examined in his hospital room this morning. He was alert & oriented x 3. He denied fever, rash, dyspnea, flank discomfort or uremic symptoms. He has started walking short distances w/ physical therapy. His dimas catheter is out. He voiding without difficulty but will not collect his urine for volume measurement The patient presented with pancytopenia. Review of blood smear by hematology revealed inclusion bodies within WBC's. PCR studies confirmed Anaplasmosis. Patient is now on Doxycycline therapy. Mr. Gill has SHAMIR. Urine microscopy revealed granular casts suggestive of ATN. He underwent R IJ THC insertion 12/24/16. Creatinine continues to slowly trend up in between HD treatments Review of Systems Constitutional: No fever Cardiovascular: No chest pain Respiratory: No dyspnea at rest Abdomen: No nausea, No pain, No vomiting Extremities: No leg edema A complete review of systems was performed. Pertinent positives are noted above. All other systems are negative. Vital Signs Last 8 Hrs Date Time Temp Pulse Resp B/P Pulse Ox O2 Delivery O2 Flow Rate FiO2 12/31/16 07:36 36.5 71 16 160/75 97 Room Air I & O 24-Hour Column 12/31/16 08:00 Intake Total 470 ml Output Total 500 ml Balance -30 ml Last Recorded Weight Weight (Kilograms): 89.600 Physical Exam General Appearance: no apparent distress Head: normocephalic, atraumatic Eyes: PERRL Neck: no adenopathy Respiratory/Chest: lungs clear Cardiovascular: regular rate, rhythm, no edema Abdomen/GI: normal bowel sounds, non tender, soft Extremities/Musculoskelatal: no calf tenderness, no pedal edema Neurologic/Psych: alert, oriented x 3 Family History Patient reports no known family medical history. 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: retired Laboratory Results Past 24 Hours 12/31/16 06:38 12/31/16 06:38 Test 12/31/16 06:38 Red Blood Count 3.84 M/uL (4.7-6.1) Mean Corpuscular Volume 89.1 fL (80-100) Mean Corpuscular Hemoglobin 30.2 pg (25-34) Mean Corpuscular Hemoglobin Concent 33.9 g/dl (32-36) RDW Standard Deviation 46.6 fL (36.4-46.3) RDW Coefficient of Variation 14.2 % (11.5-14.5) Mean Platelet Volume 9.1 fL (7.4-10.4) Anion Gap 8.0 mmol/L (3-11) Est Creatinine Clear Calc Drug Dose 15.1 ml/min Estimated GFR () 14.2 Estimated GFR (Non- 12.2 BUN/Creatinine Ratio 16.3 (10-20) Calcium Level 8.9 mg/dl (8.5-10.1) Allergies Coded Allergies: Erythromycin (Verified Allergy, Intermediate, THROAT BEGAN TO SWELL SHUT, 09/04/15) PT Atorvastatin (Verified Adverse Reaction, Intermediate, MYALGIAS, 12/27/16) PT/ALLSCRIPTS Lisinopril (Verified Adverse Reaction, Intermediate, COUGH, 09/04/15) Medications Current Inpatient Medications Medications (Trade) Dose Ordered Sig/Sheree Route Start Time Stop Time Status Last Admin Dose Admin Acetaminophen (Tylenol Tab) 650 mg Q4H PRN PO 12/20/16 22:00 01/19/17 21:59 12/27/16 17:41 650 MG Nitroglycerin (Nitrostat Tab) 0.4 mg UD PRN SL 12/20/16 22:00 01/19/17 21:59 Alfuzosin HCl (Uroxatral Tab) 10 mg HS PO 12/21/16 21:00 01/20/17 20:59 12/30/16 20:06 10 MG Calcium/Vitamin D (Caltrate Plus Tab) 1 tab BID PO 12/21/16 09:00 01/20/17 08:59 12/31/16 08:53 1 TAB Cholecalciferol (Vitamin D Tab) 1,000 inter.unit DAILY PO 12/21/16 09:00 01/20/17 08:59 12/31/16 08:53 1,000 INTER.UNIT Duloxetine HCl (Cymbalta Cap) 60 mg DAILY PO 12/21/16 09:00 01/20/17 08:59 12/31/16 08:54 60 MG Levothyroxine Sodium (Synthroid Tab) 100 mcg DAILYBB PO 12/21/16 06:00 01/20/17 06:59 12/31/16 06:12 100 MCG Metoprolol Succinate (Toprol Xl Tab) 50 mg DAILY PO 12/21/16 09:00 01/20/17 08:59 12/30/16 07:47 50 MG Polyethylene (Miralax Powder Packet) 17 gm HS PO 12/21/16 21:00 01/20/17 20:59 12/29/16 20:30 17 GM Ranitidine HCl (zANTac TAB) 150 mg HS PO 12/21/16 21:00 01/20/17 20:59 12/30/16 20:07 150 MG Simvastatin (Zocor Tab) 20 mg QPM PO 12/21/16 21:00 01/20/17 20:59 12/30/16 20:06 20 MG Loratadine (Claritin Tab) 10 mg QAM PRN PO 12/20/16 22:00 01/19/17 21:59 Miscellaneous Information (Order Awaiting Action) 1 ea QS N/A 12/21/16 00:00 01/20/17 00:00 Pantoprazole Sodium (Protonix Tab) 40 mg QAM PO 12/21/16 09:00 01/20/17 08:59 12/31/16 08:54 40 MG Miscellaneous Information (Order Awaiting Action) 1 ea QS N/A 12/21/16 00:00 01/20/17 00:00 Ondansetron HCl (Zofran Inj) 4 mg Q6H PRN IV 12/20/16 22:15 01/19/17 22:14 12/30/16 10:38 4 MG Doxycycline Hyclate (Vibramycin Cap) 100 mg BID PO 12/27/16 21:00 12/31/16 23:59 12/30/16 20:05 100 MG Enteral Nutritional Formula (Boost Breeze Nutritional Drink) 1 box TID PO 12/27/16 21:00 01/26/17 20:59 12/30/16 07:46 1 BOX Hydralazine HCl (HydrALAZINE INJ) 10 mg Q6H PRN IV. 12/27/16 17:15 01/26/17 17:14 Amlodipine Besylate (Norvasc Tab) 5 mg QAM PO 12/29/16 09:00 01/28/17 08:59 12/30/16 07:47 5 MG Finasteride (Proscar Tab) 5 mg QAM PO 12/29/16 09:00 01/28/17 08:59 12/31/16 08:54 5 MG Heparin Sodium (Porcine) (Heparin Sq 5000 Unit/0.5ml) 5,000 unit Q12 SQ 12/28/16 21:00 01/27/17 20:59 12/31/16 08:57 5,000 UNIT Bacitracin (Bacitracin Oint) 1 appln Q8H PRN EXT 12/28/16 17:30 01/27/17 17:29 Aspirin (Ecotrin Tab) 81 mg QAM PO 12/30/16 08:00 01/29/17 07:59 12/31/16 08:53 81 MG Impression (1) Acute renal insufficiency (2) Ehrlichiosis (3) Trigeminal neuralgia (4) Thrombocytopenia (5) Elevation of cardiac enzymes (6) Hypertension Mr. Bell is a 81-year-old male w/ HTN, OA, spinal stenosis, lumbar radiculopathy, post herpetic trigeminal neuralgia, BPH and h/o CVA. He presented w/ fevers, chills, urinary incontinence, generalized weakness, shortness of breath and left facial droop. Peripheral blood smear revealed WBC intracellular inclusions. 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 Clinical improvement noted with doxycycline. Patient developed oliguric SHAMIR. Urine sediment revealed granular casts c/w ATN. Baseline creatinine has been 1.1 mg/dL. Patient is now nonoliguric but serum creatinine continues to increase in between HD treatments. Patient has persistent azotemia and metabolic acidosis. CT abdomen showed normal appearing kidneys without evidence of obstruction. Recommendations SHAMIR: -- Patient is nonoliguric. Unfortunately creatinine has increased overnight and potassium is high -- Will schedule HD today. No UF -- R IJ THC placed 12/24/[address] Mills -- Medications appropriate for renal function. Continue to hold gabapentin, HCTZ and Losartan HEME: -- Pancytopenia. Peripheral smear revealed inclusion bodies in WBC's suggestive of Ehrlichiosis / Anaplasmosis -- Antibody studies for Ehrlichiosis and Anaplasmosis are negative 12/26/16. PCR study is positive for Anaplasmosis -- No evidence of TMA -- Hematology following CV: -- Admitted w/ elevated troponin -- Cardiology consult reviewed -- Suspected manifestation of diffuse small vessel injury ID: -- Positive for Anaplasmosis by PCR -- ID consult reviewed -- Day # 10 of 10 Doxycycline OTHER: -- Continue PT for strengthening / ambulation
[2016-12-31] MEDS ORDERED: PARICALCITOL 5 MCG/ML VIAL (ZEMPLAR) IV. SCH (10:00)
[2016-12-31] MEDS ORDERED: HEPARIN SOD (PORCINE) 1000 UNIT/ML 10 ML VIAL IV SCH (10:00)
--- NOTE | 2016-12-31 11:59 | Family Medicine Progress Note ---
Progress Note Date of Service December 31, 2016. Subjective Pt evaluation today including: conversation w/ patient, physical exam, chart review, lab review Voiding: no voiding problems continues to feel depressed. 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) , No worsening of vision ENT: No hearing loss Respiratory: No cough, No shortness of breath, No sputum, No wheezing Cardiovascular: No chest pain Abdomen: No diarrhea, No nausea, No pain, No vomiting Musculoskeletal: No joint pain Male : No dysuria Neurologic: No memory loss, No paralysis Psychiatric: + depression symptoms Heme: No abnormal bleeding/bruising Medications Current Inpatient Medications Medications (Trade) Dose Ordered Sig/Sheree Route Start Time Stop Time Status Last Admin Dose Admin Acetaminophen (Tylenol Tab) 650 mg Q4H PRN PO 12/20/16 22:00 01/19/17 21:59 12/27/16 17:41 650 MG Nitroglycerin (Nitrostat Tab) 0.4 mg UD PRN SL 12/20/16 22:00 01/19/17 21:59 Alfuzosin HCl (Uroxatral Tab) 10 mg HS PO 12/21/16 21:00 01/20/17 20:59 12/30/16 20:06 10 MG Calcium/Vitamin D (Caltrate Plus Tab) 1 tab BID PO 12/21/16 09:00 01/20/17 08:59 12/31/16 08:53 1 TAB Cholecalciferol (Vitamin D Tab) 1,000 inter.unit DAILY PO 12/21/16 09:00 01/20/17 08:59 12/31/16 08:53 1,000 INTER.UNIT Duloxetine HCl (Cymbalta Cap) 60 mg DAILY PO 12/21/16 09:00 01/20/17 08:59 12/31/16 08:54 60 MG Levothyroxine Sodium (Synthroid Tab) 100 mcg DAILYBB PO 12/21/16 06:00 01/20/17 06:59 12/31/16 06:12 100 MCG Metoprolol Succinate (Toprol Xl Tab) 50 mg DAILY PO 12/21/16 09:00 01/20/17 08:59 12/30/16 07:47 50 MG Polyethylene (Miralax Powder Packet) 17 gm HS PO 12/21/16 21:00 01/20/17 20:59 12/29/16 20:30 17 GM Ranitidine HCl (zANTac TAB) 150 mg HS PO 12/21/16 21:00 01/20/17 20:59 12/30/16 20:07 150 MG Simvastatin (Zocor Tab) 20 mg QPM PO 12/21/16 21:00 01/20/17 20:59 12/30/16 20:06 20 MG Loratadine (Claritin Tab) 10 mg QAM PRN PO 12/20/16 22:00 01/19/17 21:59 Miscellaneous Information (Order Awaiting Action) 1 ea QS N/A 12/21/16 00:00 01/20/17 00:00 Pantoprazole Sodium (Protonix Tab) 40 mg QAM PO 12/21/16 09:00 01/20/17 08:59 12/31/16 08:54 40 MG Miscellaneous Information (Order Awaiting Action) 1 ea QS N/A 12/21/16 00:00 01/20/17 00:00 Ondansetron HCl (Zofran Inj) 4 mg Q6H PRN IV 12/20/16 22:15 01/19/17 22:14 12/30/16 10:38 4 MG Doxycycline Hyclate (Vibramycin Cap) 100 mg BID PO 12/27/16 21:00 12/31/16 23:59 12/30/16 20:05 100 MG Enteral Nutritional Formula (Boost Breeze Nutritional Drink) 1 box TID PO 12/27/16 21:00 01/26/17 20:59 12/30/16 07:46 1 BOX Hydralazine HCl (HydrALAZINE INJ) 10 mg Q6H PRN IV. 12/27/16 17:15 01/26/17 17:14 Amlodipine Besylate (Norvasc Tab) 5 mg QAM PO 12/29/16 09:00 01/28/17 08:59 12/30/16 07:47 5 MG Finasteride (Proscar Tab) 5 mg QAM PO 12/29/16 09:00 01/28/17 08:59 12/31/16 08:54 5 MG Heparin Sodium (Porcine) (Heparin Sq 5000 Unit/0.5ml) 5,000 unit Q12 SQ 12/28/16 21:00 01/27/17 20:59 12/31/16 08:57 5,000 UNIT Bacitracin (Bacitracin Oint) 1 appln Q8H PRN EXT 12/28/16 17:30 01/27/17 17:29 Aspirin (Ecotrin Tab) 81 mg QAM PO 12/30/16 08:00 01/29/17 07:59 12/31/16 08:53 81 MG Heparin Sodium (Porcine) (Heparin Iv Bolus) 2,000 unit TODAY@1000 IV 12/31/16 10:00 12/31/16 18:00 Paricalcitol (Zemplar Inj) 3 mcg TODAY@1000 IV. 12/31/16 10:00 12/31/16 18:00 Objective Vital Signs Current Inpatient Medications Medications (Trade) Dose Ordered Sig/Sheree Route Start Time Stop Time Status Last Admin Dose Admin Acetaminophen (Tylenol Tab) 650 mg Q4H PRN PO 12/20/16 22:00 01/19/17 21:59 12/27/16 17:41 650 MG Nitroglycerin (Nitrostat Tab) 0.4 mg UD PRN SL 12/20/16 22:00 01/19/17 21:59 Alfuzosin HCl (Uroxatral Tab) 10 mg HS PO 12/21/16 21:00 01/20/17 20:59 12/30/16 20:06 10 MG Calcium/Vitamin D (Caltrate Plus Tab) 1 tab BID PO 12/21/16 09:00 01/20/17 08:59 12/31/16 08:53 1 TAB Cholecalciferol (Vitamin D Tab) 1,000 inter.unit DAILY PO 12/21/16 09:00 01/20/17 08:59 12/31/16 08:53 1,000 INTER.UNIT Duloxetine HCl (Cymbalta Cap) 60 mg DAILY PO 12/21/16 09:00 01/20/17 08:59 12/31/16 08:54 60 MG Levothyroxine Sodium (Synthroid Tab) 100 mcg DAILYBB PO 12/21/16 06:00 01/20/17 06:59 12/31/16 06:12 100 MCG Metoprolol Succinate (Toprol Xl Tab) 50 mg DAILY PO 12/21/16 09:00 01/20/17 08:59 12/30/16 07:47 50 MG Polyethylene (Miralax Powder Packet) 17 gm HS PO 12/21/16 21:00 01/20/17 20:59 12/29/16 20:30 17 GM Ranitidine HCl (zANTac TAB) 150 mg HS PO 12/21/16 21:00 01/20/17 20:59 12/30/16 20:07 150 MG Simvastatin (Zocor Tab) 20 mg QPM PO 12/21/16 21:00 01/20/17 20:59 12/30/16 20:06 20 MG Loratadine (Claritin Tab) 10 mg QAM PRN PO 12/20/16 22:00 01/19/17 21:59 Miscellaneous Information (Order Awaiting Action) 1 ea QS N/A 12/21/16 00:00 01/20/17 00:00 Pantoprazole Sodium (Protonix Tab) 40 mg QAM PO 12/21/16 09:00 01/20/17 08:59 12/31/16 08:54 40 MG Miscellaneous Information (Order Awaiting Action) 1 ea QS N/A 12/21/16 00:00 01/20/17 00:00 Ondansetron HCl (Zofran Inj) 4 mg Q6H PRN IV 12/20/16 22:15 01/19/17 22:14 12/30/16 10:38 4 MG Doxycycline Hyclate (Vibramycin Cap) 100 mg BID PO 12/27/16 21:00 12/31/16 23:59 12/30/16 20:05 100 MG Enteral Nutritional Formula (Boost Breeze Nutritional Drink) 1 box TID PO 12/27/16 21:00 01/26/17 20:59 12/30/16 07:46 1 BOX Hydralazine HCl (HydrALAZINE INJ) 10 mg Q6H PRN IV. 12/27/16 17:15 01/26/17 17:14 Amlodipine Besylate (Norvasc Tab) 5 mg QAM PO 12/29/16 09:00 01/28/17 08:59 12/30/16 07:47 5 MG Finasteride (Proscar Tab) 5 mg QAM PO 12/29/16 09:00 01/28/17 08:59 12/31/16 08:54 5 MG Heparin Sodium (Porcine) (Heparin Sq 5000 Unit/0.5ml) 5,000 unit Q12 SQ 12/28/16 21:00 01/27/17 20:59 12/31/16 08:57 5,000 UNIT Bacitracin (Bacitracin Oint) 1 appln Q8H PRN EXT 12/28/16 17:30 01/27/17 17:29 Aspirin (Ecotrin Tab) 81 mg QAM PO 12/30/16 08:00 01/29/17 07:59 12/31/16 08:53 81 MG Heparin Sodium (Porcine) (Heparin Iv Bolus) 2,000 unit TODAY@1000 IV 12/31/16 10:00 12/31/16 18:00 Paricalcitol (Zemplar Inj) 3 mcg TODAY@1000 IV. 12/31/16 10:00 12/31/16 18:00 Physical Exam General Appearance: WD/WN, no apparent distress Eyes: normal inspection ENT: + pertinent finding (left-sided facial droop which is chronic) Neck: supple Respiratory/Chest: chest non-tender, lungs clear, normal breath sounds, no respiratory distress, no accessory muscle use Cardiovascular: regular rate, rhythm Abdomen: normal bowel sounds, non tender, soft Extremities: no pedal edema, no calf tenderness Neurologic/Psychiatric: alert, oriented x 3, + depressed affect Skin: + pertinent finding (erythematous macular rash above right buttock) Laboratory Results 12/31/16 06:38 12/31/16 06:38 Test 12/31/16 06:38 Red Blood Count 3.84 M/uL (4.7-6.1) Mean Corpuscular Volume 89.1 fL (80-100) Mean Corpuscular Hemoglobin 30.2 pg (25-34) Mean Corpuscular Hemoglobin Concent 33.9 g/dl (32-36) RDW Standard Deviation 46.6 fL (36.4-46.3) RDW Coefficient of Variation 14.2 % (11.5-14.5) Mean Platelet Volume 9.1 fL (7.4-10.4) Anion Gap 8.0 mmol/L (3-11) Est Creatinine Clear Calc Drug Dose 15.1 ml/min Estimated GFR () 14.2 Estimated GFR (Non- 12.2 BUN/Creatinine Ratio 16.3 (10-20) Calcium Level 8.9 mg/dl (8.5-10.1) Assessment and Plan 81 y/o M h/o HTN, BPH, asthma, GERD here with c/o fevers and chills started 3 days ago. He also noticed increased episodes of urinary incontinence and complained of fatigue and shortness of breath. Noted to be have elevated creatinine, troponin and low platelet on admission. Peripheral smear was obtained which revealed inclusion bodies consistent with ehrlichia/anaplasmosis. PCR confirmed anaplasmosis. 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 sec to small vessel disease versus myocarditis: trending down - Echo - negative for WMA - Cardiology on board - No cardiac intervention - Troponin trended down Initial troponin 13-->14.2--> 17--->18.5-->13.5--->8.08- ->6.08-->3.6-->2.2-->1.7 - Echo pending - stress echo before discharge Thrombocytopenia with coagulopathy:Secondary to infection- continues to improve - s/p 2 unit platelet transfusion. Platelets 169 - No active bleeding Elevated liver enzymes: Stable to improving - Secondary to infection - Will restart statin when LFTs are normal Hypotension: - resolved - continuing to hold antihypertensives due to renal function Uncontrolled Hypertension: - Losartan and hydrochlorothiazide currently held due to SHAMIR -Norvasc was increased to 10 mg - May use hydralazine when necessary Left sided facial droop: chronic with h/o postherpetic neuralgia - Was worked up for stroke with head CT, MRI which were unremarkable - Carotid ultrasound revealed right internal carotid stenosis 50-69% - Will restart statin upon discharge - Restart aspirin today Hypothyroidism: Continue Synthroid Peripheral neuropathy: - Gabapentin held GERD: - Continue home meds - CT: Moderate thickening of distal esophageal wall - EGD as an outpatient COPD -Continue nebs as needed BPH: - Continue finasteride, alfuzosin Depression -Increased Cymbalta to 90 mg from 60 mg PT/OT DVT prophylaxis: SCDs Heparin subcutaneous Full code Disposition: MedSurg Resident Tracking Resident Involvement: Resident Care Provided Care Provided: [facility] Reviewed: Pt Seen/Exam by Me History Resident Physician Supervision Note: I interviewed and examined the patient. Discussed with Dr. Justin and agree with findings and plan as documented in the note. Any exceptions or clarifications are listed here: Feeling depressed again today as he had to have another round of dialysis. The medical student and resident found a rash on the patient's right posterior waistline that I did not see previously which may be consistent with a bull's- eye rash of Lyme disease Tele and vitals reviewed No acute distress, alert awake oriented 3 RRR no mgr CTAB no wcr ABd soft NT ND +BS Ext no edema, no effusions 81 yo male with Anaplasmosis confirmed by inclusion bodies on peripheral smear and +PCR of blood, with thrombocytopenia, myocarditis, elevated transaminases, and SHAMIR requiring HD secondary to ATN with granular casts. Now repeat Lyme IgM titer is positive and may have coinfection -Appreciate Nephrology management--> renal function and hyperkalemia slightly worse today so will need to continue HD but may be able to stop this prior to discharge, will need acute rehabilitation with hemodialysis if needs continued hemodialysis -Appreciate Cardiology input--> plan for stress ECHO when able-perhaps as an inpatient, repeat limited resting echo continues to show hyperdynamic LV function but otherwise normal -continue Doxy for 21 days total to treat for Lyme as well as anaplasmosis -follow CBC and LFTs but all are improving -PT/OT and will likely need SNF--> PT/OT ordered -Blood pressure still elevated, increase amlodipine to 10 mg -BPH-added his finasteride back in as dutasteride not available here -Discussed increasing Cymbalta to 90 mg and he is agreeable for depressed mood DVT proph-heparin Documented By: Randa Monte
[2016-12-31 12:10] LABS: LYME DISEASE AB IGG NEG (NEG)
[2016-12-31 13:29] LABS: LYME DISEASE AB IGM POS (NEG)
[2016-12-31] MEDS: DOXYCYCLINE HYCLATE 100 MG CAP PO SCH ×2 (15:03→20:33)
[2016-12-31] MEDS: METOPROLOL SUCC 50MG EXT REL TAB PO SCH (15:03)
[2016-12-31] MEDS: AMLODIPINE BESYLATE 5 MG TAB PO SCH (15:03)
[2016-12-31] MEDS: HEPARIN SOD (PORCINE) 1000 UNIT/ML 10 ML VIAL IV SCH (15:05)
--- NOTE | 2016-12-31 20:19 | ECHOCARDIOGRAM REPORT ---
*NOTICE TO RECEIVING [employer]Y This information is strictly Confidential and protected under [place] law. [place] law prohibits you from making any further disclosure of this information unless further disclosure is expressly permitted by the written consent of the person to whom it pertains or is authorized by law. A general authorization for the release of medical or other information is not sufficient for this purpose. Hospital accepts no responsibility if the information is made available to any other person, INCLUDING THE PATIENT. Interpretation Summary * Name: CHARLEY BROWN Study Date: 12/31/2016 08:11 AM BP: 157/75 mmHg * Patient Location: .[id number]\E415\S\1 HR: 81 * : 1935 (M/d/yyyy) Gender: Male Height: 68 in * Age: 81 yrs Ethnicity: [place] Weight: 205 lb * Ordering Physician: Randa Monte * Referring Physician: Self, Referred * Performed By: Keli Gillespie [facility] * * Reason For Study: REASSESS FOR WMA AND LVEF / S/P NSTEMI * BSA: 2.1 m2 * This was a limited 2D study only. No Doppler or color flow exam was performed. * Hyperdynamic left ventricular systolic function. No regional wall motion abnormalities. * Mild concentric left ventricular hypertrophy. * Normal chamber dimensions. Procedure Details * The study was technically limited. * Limited views were obtained. * A contrast injection of Definity was performed to improve assessment of LV function. * Contrast was injected into an intravenous site in the right arm. * One vial of Definity ultrasound contrast was diluted in normal saline to a total volume of 10 ml. A total of '2' ml of solution was administered during imaging. * Lot # [id number] of Definity utilized for procedure. * Expiration date 1 FEB 06. * The attending nurse who injected the contrast agent was GOPI CLARKE CPL, RN. Left Ventricle * The left ventricle is normal in size. * There is mild concentric left ventricular hypertrophy. * The left ventricle is hyperdynamic. * Ejection Fraction = >70 %. * No regional wall motion abnormalities noted. Right Ventricle * The right ventricle is normal in size and function. Atria * The left atrial size is normal. * Right atrial size is normal. Mitral Valve * The mitral valve is normal. Tricuspid Valve * The tricuspid valve is not well visualized, but is grossly normal. Aortic Valve * The aortic valve opens well. Pericardium/Pleural * There is no pericardial effusion. MMode 2D Measurements and Calculations IVSd 1.4 cm IVSs 1.8 cm LVIDd 4.2 cm LVIDs 2.2 cm LVPWd 1.3 cm LVPWs 1.4 cm IVS/LVPW 1.1 FS 48.4 % EDV(Teich) 78.6 ml ESV(Teich) 15.6 ml EF(Teich) 80.1 % EDV(cubed) 74.2 ml ESV(cubed) 10.2 ml EF(cubed) 86.3 % % IVS thick 24.3 % % LVPW thick 11.4 % LV mass(C)d 213.2 grams LV mass(C)dI 103.2 grams/m\S\2 LV mass(C)s 120.9 grams LV mass(C)sI 58.5 grams/m\S\2 SV(Teich) 63.0 ml SI(Teich) 30.5 ml/m\S\2 SV(cubed) 64.0 ml SI(cubed) 31.0 ml/m\S\2 LVOT diam 2.0 cm LVOT area 3.3 cm\S\2
[2016-12-31] MEDS: POLYETHYLENE (MIRALAX) 17 GM PACK PO SCH (20:32)
[2016-12-31] MEDS: ALFUZosin TAB 10 MG TAB PO SCH (20:33)
[2016-12-31] MEDS: RANITIDINE HCL 150 MG TAB PO SCH (20:33)
[2016-12-31] MEDS: SIMVASTATIN 20 MG TAB PO SCH (20:33)
[2017-01-01] MEDS: LEVOTHYROXINE 100 MCG TAB PO SCH (06:23)
[2017-01-01 06:56] LABS: HEMATOCRIT 32.7 % (42-52); MEAN CELL VOLUME 90.1 fL (80-100); MEAN CORPUSCULAR HGB CONC 33.3 g/dl (32-36); MEAN PLATELET VOLUME 10.1 fL (7.4-10.4); PLATELET COUNT 177 K/uL (130-400); RED BLOOD COUNT 3.63 M/uL (4.7-6.1); WHITE BLOOD COUNT 8.51 K/uL (4.8-10.8)
[2017-01-01 07:34] VITALS: BP 152/72; PULSE 67; TEMP 37; O2SAT 95
[2017-01-01 07:36] LABS: BUN/CREATININE RATIO 12.8 (10-20); CALCIUM 8.4 mg/dl (8.5-10.1); CREATININE 2.8 mg/dl (0.60-1.40); POTASSIUM 4.6 mmol/L (3.5-5.1)
[2017-01-01 08:58] VITALS: BP 149/74; PULSE 81
[2017-01-01] MEDS: BOOST BREEZE NUTRITION DRINK 1 BOX PO SCH ×3 (08:58→20:00)
[2017-01-01] MEDS: AVODART~ORDER AWAITING ACTION SCH ×3 (08:58→23:22)
[2017-01-01] MEDS: DULOXETINE (CYMBALTA) 30 MG CAP PO SCH (08:59)
[2017-01-01] MEDS: ASPIRIN 81 MG ECTAB PO SCH (08:59)
[2017-01-01] MEDS: CALCIUM 600MG + VIT D 400 IU TAB PO SCH ×2 (08:59→20:48)
[2017-01-01] MEDS ORDERED: DOXYCYCLINE HYCLATE 100 MG CAP PO SCH (09:00)
[2017-01-01] MEDS: AMLODIPINE BESYLATE 5 MG TAB PO SCH (09:00)
[2017-01-01] MEDS: PANTOprazole SOD 40 MG TAB PO SCH (09:01)
[2017-01-01] MEDS: CHOLECALCIFEROL 1000 INTER.UNIT TAB PO SCH (09:01)
[2017-01-01] MEDS: FINASTERIDE 5 MG TAB PO SCH (09:01)
[2017-01-01] MEDS: METOPROLOL SUCC 50MG EXT REL TAB PO SCH (09:01)
[2017-01-01] MEDS: DOXYCYCLINE HYCLATE 100 MG CAP PO SCH ×2 (09:19→20:48)
[2017-01-01] MEDS: HEPARIN SOD 5000 UNIT/0.5 ML CARP SQ SCH ×2 (09:22→20:55)
--- NOTE | 2017-01-01 12:53 | Nephrology Progress Note ---
Nephrology Progress Note Date of Service January 01, 2017. Chief Complaint Follow-up for dialysis requiring acute kidney injury Subjective Mr. Gill was seen and examined in his room this morning. he has been otherwise feeling fine, appetite decent, denies any shortness of breath or chest pain. He has been out of bed and to the chair and has been walking to the bathroom. Had dialysis yesterday tolerated well. This morning his serum creatinine decreased significantly and other electrolyte acceptable. His urine output has been increasing and has been decent. Blood pressure stable of volume status acceptable. There is some sign of renal recovery. He mentioned that he had 6 hours dialysis yesterday and he does not want to do dialysis any more. Review of Systems A complete review of systems was performed. Pertinent positives are noted above. All other systems are negative. Vital Signs Last 8 Hrs Date Time Temp Pulse Resp B/P Pulse Ox O2 Delivery O2 Flow Rate FiO2 01/01/17 08:58 81 149/74 01/01/17 08:30 Room Air 01/01/17 07:34 37.0 67 18 152/72 95 Room Air I & O 24-Hour Column 01/01/17 08:00 Intake Total 100 ml Output Total 28 ml Balance 72 ml Last Recorded Weight Weight (Kilograms): 89.700 Physical Exam GENERAL: Elderly male, AAA x 3, pleasant, healthy-appearing, not in any distress. NECK: Supple, no JVD. RESPIRATORY: Normal breathing efforts, no accessory muscle use, clear to auscultation bilaterally, no wheezes or rales. CARDIOVASCULAR: S1, S2 normal, rate rhythm regular. EXTREMITY: No lower extremity edema NEURO: speech fluent. PSYCHIATRY: Normal mood and judgment Family History Patient reports no known family medical history. 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: retired Laboratory Results Past 24 Hours 01/01/17 06:05 01/01/17 06:05 Test 01/01/17 06:05 Red Blood Count 3.63 M/uL (4.7-6.1) Mean Corpuscular Volume 90.1 fL (80-100) Mean Corpuscular Hemoglobin 30.0 pg (25-34) Mean Corpuscular Hemoglobin Concent 33.3 g/dl (32-36) RDW Standard Deviation 47.0 fL (36.4-46.3) RDW Coefficient of Variation 14.2 % (11.5-14.5) Mean Platelet Volume 10.1 fL (7.4-10.4) Anion Gap 8.0 mmol/L (3-11) Est Creatinine Clear Calc Drug Dose 23.3 ml/min Estimated GFR () 23.8 Estimated GFR (Non- 20.5 BUN/Creatinine Ratio 12.8 (10-20) Calcium Level 8.4 mg/dl (8.5-10.1) Allergies Coded Allergies: Erythromycin (Verified Allergy, Intermediate, THROAT BEGAN TO SWELL SHUT, 09/04/15) PT Atorvastatin (Verified Adverse Reaction, Intermediate, MYALGIAS, 12/27/16) PT/ALLSCRIPTS Lisinopril (Verified Adverse Reaction, Intermediate, COUGH, 09/04/15) Medications Current Inpatient Medications Medications (Trade) Dose Ordered Sig/Sheree Route Start Time Stop Time Status Last Admin Dose Admin Acetaminophen (Tylenol Tab) 650 mg Q4H PRN PO 12/20/16 22:00 01/19/17 21:59 12/27/16 17:41 650 MG Nitroglycerin (Nitrostat Tab) 0.4 mg UD PRN SL 12/20/16 22:00 01/19/17 21:59 Alfuzosin HCl (Uroxatral Tab) 10 mg HS PO 12/21/16 21:00 01/20/17 20:59 12/31/16 20:33 10 MG Calcium/Vitamin D (Caltrate Plus Tab) 1 tab BID PO 12/21/16 09:00 01/20/17 08:59 01/01/17 08:59 1 TAB Cholecalciferol (Vitamin D Tab) 1,000 inter.unit DAILY PO 12/21/16 09:00 01/20/17 08:59 01/01/17 09:01 1,000 INTER.UNIT Levothyroxine Sodium (Synthroid Tab) 100 mcg DAILYBB PO 12/21/16 06:00 01/20/17 06:59 01/01/17 06:23 100 MCG Metoprolol Succinate (Toprol Xl Tab) 50 mg DAILY PO 12/21/16 09:00 01/20/17 08:59 01/01/17 09:01 50 MG Polyethylene (Miralax Powder Packet) 17 gm HS PO 12/21/16 21:00 01/20/17 20:59 12/29/16 20:30 17 GM Ranitidine HCl (zANTac TAB) 150 mg HS PO 12/21/16 21:00 01/20/17 20:59 12/31/16 20:33 150 MG Simvastatin (Zocor Tab) 20 mg QPM PO 12/21/16 21:00 01/20/17 20:59 12/31/16 20:33 20 MG Loratadine (Claritin Tab) 10 mg QAM PRN PO 12/20/16 22:00 01/19/17 21:59 Miscellaneous Information (Order Awaiting Action) 1 ea QS N/A 12/21/16 00:00 01/20/17 00:00 Pantoprazole Sodium (Protonix Tab) 40 mg QAM PO 12/21/16 09:00 01/20/17 08:59 01/01/17 09:01 40 MG Miscellaneous Information (Order Awaiting Action) 1 ea QS N/A 12/21/16 00:00 01/20/17 00:00 Ondansetron HCl (Zofran Inj) 4 mg Q6H PRN IV 12/20/16 22:15 01/19/17 22:14 12/30/16 10:38 4 MG Doxycycline Hyclate (Vibramycin Cap) 100 mg BID PO 12/27/16 21:00 01/10/17 20:59 01/01/17 09:19 100 MG Enteral Nutritional Formula (Boost Breeze Nutritional Drink) 1 box TID PO 12/27/16 21:00 01/26/17 20:59 12/30/16 07:46 1 BOX Hydralazine HCl (HydrALAZINE INJ) 10 mg Q6H PRN IV. 12/27/16 17:15 01/26/17 17:14 Finasteride (Proscar Tab) 5 mg QAM PO 12/29/16 09:00 01/28/17 08:59 01/01/17 09:01 5 MG Heparin Sodium (Porcine) (Heparin Sq 5000 Unit/0.5ml) 5,000 unit Q12 SQ 12/28/16 21:00 01/27/17 20:59 01/01/17 09:22 5,000 UNIT Bacitracin (Bacitracin Oint) 1 appln Q8H PRN EXT 12/28/16 17:30 01/27/17 17:29 Aspirin (Ecotrin Tab) 81 mg QAM PO 12/30/16 08:00 01/29/17 07:59 01/01/17 08:59 81 MG Duloxetine HCl (Cymbalta Cap) 90 mg DAILY PO 01/01/17 08:00 01/31/17 07:59 01/01/17 08:59 90 MG Amlodipine Besylate (Norvasc Tab) 10 mg QAM PO 01/01/17 08:00 01/31/17 07:59 01/01/17 09:00 10 MG Impression (1) Acute renal insufficiency (2) Ehrlichiosis (3) Trigeminal neuralgia (4) Thrombocytopenia (5) Elevation of cardiac enzymes (6) Hypertension Mr. Bell is a 81-year-old male w/ HTN, OA, spinal stenosis, lumbar radiculopathy, post herpetic trigeminal neuralgia, BPH and h/o CVA. He presented w/ fevers, chills, urinary incontinence, generalized weakness, shortness of breath and left facial droop. Peripheral blood smear revealed WBC intracellular inclusions. 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 Clinical improvement noted with doxycycline. Patient developed oliguric SHAMIR. Urine sediment revealed granular casts c/w ATN. Baseline creatinine has been 1.1 mg/dL. Patient is now nonoliguric but serum creatinine continues to increase in between HD treatments. Patient has persistent azotemia and metabolic acidosis. CT abdomen showed normal appearing kidneys without evidence of obstruction. Recommendations SHAMIR: --as patient is having decent urine output and creatinine dropped and other electrolyte acceptable, will monitor over the weekend. Will check his renal panel Tuesday morning and if renal function continues to improve and continues to have decent urine output, may not need any further dialysis and will be able to remove the tunnel dialysis catheter. -- however if renal function worsened further, will have to continue on dialysis , will discussed with patient in detail, patient verbalized understanding but he decided he will not consider dialysis anymore HEME: -- Pancytopenia. Peripheral smear revealed inclusion bodies in WBC's suggestive of Ehrlichiosis / Anaplasmosis -- Antibody studies for Ehrlichiosis and Anaplasmosis are negative 12/26/16. PCR study is positive for Anaplasmosis -- No evidence of TMA -- Hematology following CV: -- Admitted w/ elevated troponin -- Cardiology consult reviewed -- Suspected manifestation of diffuse small vessel injury ID: -- Positive for Anaplasmosis by PCR -- ID consult reviewed -- Day # 10 of 10 Doxycycline OTHER: -- Continue PT for strengthening / ambulation
[2017-01-01 15:37] VITALS: BP 102/57; PULSE 69; TEMP 36.7; O2SAT 97
--- NOTE | 2017-01-01 17:52 | Family Medicine Progress Note ---
Progress Note Date of Service January 01, 2017. Subjective Pt evaluation today including: conversation w/ patient, physical exam, chart review, lab review, review of studies Pain: No pain reported this morning Voiding: no voiding problems Patient has no complaints this morning and states he had no acute events overnight. He states that "I'm never doing dialysis again". Constitutional: No chills, No fever, No sweats Respiratory: No cough, No shortness of breath, No sputum, No wheezing Cardiovascular: No chest pain, No palpitations Abdomen: No diarrhea, No nausea, No pain, No vomiting Musculoskeletal: No joint pain Male : No dysuria Medications Current Inpatient Medications Medications (Trade) Dose Ordered Sig/Sheree Route Start Time Stop Time Status Last Admin Dose Admin Acetaminophen (Tylenol Tab) 650 mg Q4H PRN PO 12/20/16 22:00 01/19/17 21:59 12/27/16 17:41 650 MG Nitroglycerin (Nitrostat Tab) 0.4 mg UD PRN SL 12/20/16 22:00 01/19/17 21:59 Alfuzosin HCl (Uroxatral Tab) 10 mg HS PO 12/21/16 21:00 01/20/17 20:59 12/31/16 20:33 10 MG Calcium/Vitamin D (Caltrate Plus Tab) 1 tab BID PO 12/21/16 09:00 01/20/17 08:59 01/01/17 08:59 1 TAB Cholecalciferol (Vitamin D Tab) 1,000 inter.unit DAILY PO 12/21/16 09:00 01/20/17 08:59 01/01/17 09:01 1,000 INTER.UNIT Levothyroxine Sodium (Synthroid Tab) 100 mcg DAILYBB PO 12/21/16 06:00 01/20/17 06:59 01/01/17 06:23 100 MCG Metoprolol Succinate (Toprol Xl Tab) 50 mg DAILY PO 12/21/16 09:00 01/20/17 08:59 01/01/17 09:01 50 MG Polyethylene (Miralax Powder Packet) 17 gm HS PO 12/21/16 21:00 01/20/17 20:59 12/29/16 20:30 17 GM Ranitidine HCl (zANTac TAB) 150 mg HS PO 12/21/16 21:00 01/20/17 20:59 12/31/16 20:33 150 MG Simvastatin (Zocor Tab) 20 mg QPM PO 12/21/16 21:00 01/20/17 20:59 12/31/16 20:33 20 MG Loratadine (Claritin Tab) 10 mg QAM PRN PO 12/20/16 22:00 01/19/17 21:59 Miscellaneous Information (Order Awaiting Action) 1 ea QS N/A 12/21/16 00:00 01/20/17 00:00 Pantoprazole Sodium (Protonix Tab) 40 mg QAM PO 12/21/16 09:00 01/20/17 08:59 01/01/17 09:01 40 MG Miscellaneous Information (Order Awaiting Action) 1 ea QS N/A 12/21/16 00:00 01/20/17 00:00 Ondansetron HCl (Zofran Inj) 4 mg Q6H PRN IV 12/20/16 22:15 01/19/17 22:14 12/30/16 10:38 4 MG Doxycycline Hyclate (Vibramycin Cap) 100 mg BID PO 12/27/16 21:00 01/10/17 20:59 01/01/17 09:19 100 MG Enteral Nutritional Formula (Boost Breeze Nutritional Drink) 1 box TID PO 12/27/16 21:00 01/26/17 20:59 12/30/16 07:46 1 BOX Hydralazine HCl (HydrALAZINE INJ) 10 mg Q6H PRN IV. 12/27/16 17:15 01/26/17 17:14 Finasteride (Proscar Tab) 5 mg QAM PO 12/29/16 09:00 01/28/17 08:59 01/01/17 09:01 5 MG Heparin Sodium (Porcine) (Heparin Sq 5000 Unit/0.5ml) 5,000 unit Q12 SQ 12/28/16 21:00 01/27/17 20:59 01/01/17 09:22 5,000 UNIT Bacitracin (Bacitracin Oint) 1 appln Q8H PRN EXT 12/28/16 17:30 01/27/17 17:29 Aspirin (Ecotrin Tab) 81 mg QAM PO 12/30/16 08:00 01/29/17 07:59 01/01/17 08:59 81 MG Duloxetine HCl (Cymbalta Cap) 90 mg DAILY PO 01/01/17 08:00 01/31/17 07:59 01/01/17 08:59 90 MG Amlodipine Besylate (Norvasc Tab) 10 mg QAM PO 01/01/17 08:00 01/31/17 07:59 01/01/17 09:00 10 MG Objective Vital Signs Date Time Temp Pulse Resp B/P Pulse Ox O2 Delivery O2 Flow Rate FiO2 01/01/17 15:37 36.7 69 18 102/57 97 Room Air 01/01/17 08:58 81 149/74 01/01/17 08:30 Room Air 01/01/17 07:34 37.0 67 18 152/72 95 Room Air 12/31/16 23:42 36.5 68 18 133/70 95 Room Air 12/31/16 19:54 156/74 12/31/16 19:30 Room Air Physical Exam General Appearance: WD/WN, no apparent distress Neck: supple, no carotid bruits Respiratory/Chest: chest non-tender, lungs clear, normal breath sounds Cardiovascular: regular rate, rhythm, no gallop, no murmur Abdomen: normal bowel sounds, non tender, soft Extremities: normal range of motion, non-tender, normal inspection Neurologic/Psychiatric: alert, normal mood/affect, oriented x 3 Laboratory Results Results Past 24 Hours Test 01/01/17 06:05 Range/Units White Blood Count 8.51 4.8-10.8 K/uL Red Blood Count 3.63 4.7-6.1 M/uL Hemoglobin 10.9 14.0-18.0 g/dL Hematocrit 32.7 42-52 % Mean Corpuscular Volume 90.1 80-100 fL Mean Corpuscular Hemoglobin 30.0 25-34 pg Mean Corpuscular Hemoglobin Concent 33.3 32-36 g/dl RDW Standard Deviation 47.0 36.4-46.3 fL RDW Coefficient of Variation 14.2 11.5-14.5 % Platelet Count 177 130-400 K/uL Mean Platelet Volume 10.1 7.4-10.4 fL Sodium Level 140 136-145 mmol/L Potassium Level 4.6 3.5-5.1 mmol/L Chloride Level 107 98-107 mmol/L Carbon Dioxide Level 25 21-32 mmol/L Anion Gap 8.0 3-11 mmol/L Blood Urea Nitrogen 36 7-18 mg/dl Creatinine 2.80 0.60-1.40 mg/dl Est Creatinine Clear Calc Drug Dose 23.3 ml/min Estimated GFR () 23.8 Estimated GFR (Non- 20.5 BUN/Creatinine Ratio 12.8 10-20 Random Glucose 93 70-99 mg/dl Calcium Level 8.4 8.5-10.1 mg/dl Assessment and Plan 81 y/o M h/o HTN, BPH, asthma, GERD here with c/o fevers and chills started 3 days ago. He also noticed increased episodes of urinary incontinence and complained of fatigue and shortness of breath. Noted to be have elevated creatinine, troponin and low platelet on admission. Peripheral smear was obtained which revealed inclusion bodies consistent with ehrlichia/anaplasmosis. PCR confirmed anaplasmosis. 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 - Peripheral smear: Inclusion bodies consistent with ehrlichia/anaplasmosis - PCR confirmation of anaplasmosis - Thrombocytopenia, elevated liver enzymes- improving - Completed 10 day course of Doxycycline for Anaplasmosis - Lyme serology IgM positive, Western blot pending- continue doxycycline until confirmation - Repeat Lyme serology as an outpatient - Already received 10 Days of Doxycycline and total dose for Lyme will be 21 days, so will currently be day 07/12 for Lyme therapy Elevated troponins - 2/2 Small vessel disease versus myocarditis: trending down - Echo - negative for WMA - Cardiology on board - No cardiac intervention - Troponin trended down Initial troponin 13-->14.2--> 17--->18.5-->13.5--->8.08- ->6.08-->3.6-->2.2-->1.7 - Echo 12/31 - Hyperdynamic LV Systolic Function, No regional wall abnormalities - Stress echo before discharge or close follow up Thrombocytopenia with coagulopathy: Secondary to infection- continues to improve - s/p 2 unit platelet transfusion. Platelets 177 - No active bleeding Elevated liver enzymes: Stable to improving - Secondary to infection - Zocor 20mg qPM - Repeat LFTs tomorrow morning Hypotension: - Resolved - Holding antihypertensives due to renal function Uncontrolled Hypertension: - Losartan and hydrochlorothiazide currently held due to SHAMIR - Amlodipine 10 mg - May use Hydralazine when necessary Left sided facial droop: chronic with h/o postherpetic neuralgia - Was worked up for stroke with head CT, MRI which were unremarkable - Carotid ultrasound revealed right internal carotid stenosis 50-69% - Zocor 20mg - Aspirin 81mg Hypothyroidism: - Continue Synthroid 100mcg Peripheral neuropathy: - Gabapentin held GERD: - Continue home meds - CT: Moderate thickening of distal esophageal wall - EGD as an outpatient COPD -Continue nebs as needed BPH: - Continue finasteride, alfuzosin Depression -Cymbalta 90 mg PT/OT DVT prophylaxis: - SCDs - Heparin subcutaneous Full code Disposition: MedSurg Reviewed: Pt Seen/Exam by Me History Resident Physician Supervision Note: I interviewed and examined the patient. Discussed with Dr. Justin and agree with findings and plan as documented in the note. Any exceptions or clarifications are listed here: Declines any further HD. Doing better today though. Syas he has had a rash on his right waistline for a few weeks Tele and vitals reviewed No acute distress, alert awake oriented 3 RRR no mgr CTAB no wcr ABd soft NT ND +BS Ext no edema Skin: right posterior waistline with faint erythematous macule about 7 cm in diameter 81 yo male with Anaplasmosis confirmed by inclusion bodies on peripheral smear and +PCR of blood, with thrombocytopenia, myocarditis, elevated transaminases, and SHAMIR requiring HD secondary to ATN with granular casts. Now repeat Lyme IgM titer is positive and may have coinfection, may have ECM rash (faint, old) c/w Lyme as well -Appreciate Nephrology management--> renal function and hyperkalemia slightly worse today so will need to continue HD but may be able to stop this prior to discharge, will need acute rehabilitation with hemodialysis if needs continued hemodialysis -Appreciate Cardiology input--> plan for stress ECHO when able-perhaps as an inpatient, repeat limited resting echo continues to show hyperdynamic LV function but otherwise normal -continue Doxy for 21 days total to treat for Lyme as well as anaplasmosis -follow CBC and LFTs but all are improving -PT/OT and will likely need SNF--> PT/OT ordered -Blood pressure still elevated, increase amlodipine to 10 mg -BPH-added his finasteride back in as dutasteride not available here - increased Cymbalta to 90 mg and he is agreeable for depressed mood DVT proph-heparin Documented By: Randa Monte
[2017-01-01] MEDS ORDERED: ACYCLOVIR 5% OINT 15 GM TUBE EXT ONE (19:00)
[2017-01-01] MEDS: ALFUZosin TAB 10 MG TAB PO SCH (20:47)
[2017-01-01] MEDS: POLYETHYLENE (MIRALAX) 17 GM PACK PO SCH (20:48)
[2017-01-01] MEDS: SIMVASTATIN 20 MG TAB PO SCH (20:49)
[2017-01-01] MEDS: RANITIDINE HCL 150 MG TAB PO SCH (20:49)
[2017-01-01] MEDS: ACYCLOVIR 5% OINT 15 GM TUBE EXT SCH (21:58)
[2017-01-02 00:21] VITALS: BP 158/76; PULSE 70; TEMP 36.6; O2SAT 98
[2017-01-02] MEDS: LEVOTHYROXINE 100 MCG TAB PO SCH (06:18)
[2017-01-02 06:38] LABS: HEMATOCRIT 33.3 % (42-52); MEAN CELL VOLUME 89.8 fL (80-100); MEAN CORPUSCULAR HEMOGLOBIN 29.6 pg (25-34); MEAN PLATELET VOLUME 9.9 fL (7.4-10.4); PLATELET COUNT 184 K/uL (130-400); RED BLOOD COUNT 3.71 M/uL (4.7-6.1)
[2017-01-02 07:08] LABS: BUN/CREATININE RATIO 17.6 (10-20); CALCIUM 8.8 mg/dl (8.5-10.1); CREATININE 3.4 mg/dl (0.60-1.40); MAGNESIUM 2.3 mg/dl (1.8-2.4); POTASSIUM 4.9 mmol/L (3.5-5.1)
[2017-01-02 07:21] LABS: BASO % 0.4 %; BASO ABS # 0.04 K/uL (0-0.2); COMPLETE YES; IG% 0.4 %; LYMPH % 22.2 %; LYMPH ABS # 2.13 K/uL (1.2-3.4); MONO % 7.5 %; NEUT % 68.5 %
[2017-01-02 07:33] VITALS: BP 168/74; PULSE 78; TEMP 36.7; O2SAT 96
[2017-01-02 08:00] VITALS: O2SAT 96
[2017-01-02] MEDS: BOOST BREEZE NUTRITION DRINK 1 BOX PO SCH ×3 (08:00→20:00)
[2017-01-02] MEDS: AVODART~ORDER AWAITING ACTION SCH ×2 (08:00→15:38)
[2017-01-02] MEDS: ACYCLOVIR 5% OINT 15 GM TUBE EXT SCH ×3 (08:37→20:09)
[2017-01-02] MEDS: METOPROLOL SUCC 50MG EXT REL TAB PO SCH (08:37)
[2017-01-02] MEDS: AMLODIPINE BESYLATE 5 MG TAB PO SCH (08:38)
[2017-01-02] MEDS: ASPIRIN 81 MG ECTAB PO SCH (08:38)
[2017-01-02] MEDS: DOXYCYCLINE HYCLATE 100 MG CAP PO SCH ×2 (08:39→20:03)
[2017-01-02] MEDS: CALCIUM 600MG + VIT D 400 IU TAB PO SCH ×2 (08:39→20:04)
[2017-01-02] MEDS: PANTOprazole SOD 40 MG TAB PO SCH (08:40)
[2017-01-02] MEDS: FINASTERIDE 5 MG TAB PO SCH (08:40)
[2017-01-02] MEDS: DULOXETINE (CYMBALTA) 30 MG CAP PO SCH (08:40)
[2017-01-02] MEDS: CHOLECALCIFEROL 1000 INTER.UNIT TAB PO SCH (08:40)
[2017-01-02] MEDS: HEPARIN SOD 5000 UNIT/0.5 ML CARP SQ SCH ×2 (08:49→20:07)
--- NOTE | 2017-01-02 09:27 | Nephrology Progress Note ---
Nephrology Progress Note Date of Service January 02, 2017. Chief Complaint Follow-up for dialysis requiring acute kidney injury Subjective Mr. Gill was seen and examined in his room this morning. he has been otherwise feeling fine, appetite decent, denies any shortness of breath or chest pain. He has been out of bed and to the chair and has been walking to the bathroom. This morning his serum creatinine worsened again off of dialysis for 2 days but other electrolyte acceptable. His urine output has been increasing and has been decent. Blood pressure stable of volume status acceptable. Review of Systems A complete review of systems was performed. Pertinent positives are noted above. All other systems are negative. Vital Signs Last 8 Hrs Date Time Temp Pulse Resp B/P Pulse Ox O2 Delivery O2 Flow Rate FiO2 01/02/17 07:33 36.7 78 18 168/74 96 Room Air 01/02/17 00:21 36.6 70 20 158/76 98 Room Air I & O 24-Hour Column 01/02/17 08:00 Intake Total 1065 ml Balance 1065 ml Last Recorded Weight Weight (Kilograms): 88.900 Physical Exam GENERAL: Elderly male, AAA x 3, pleasant, healthy-appearing, not in any distress. NECK: Supple, no JVD. RESPIRATORY: Normal breathing efforts, no accessory muscle use, clear to auscultation bilaterally, no wheezes or rales. CARDIOVASCULAR: S1, S2 normal, rate rhythm regular. EXTREMITY: No lower extremity edema NEURO: speech fluent. PSYCHIATRY: Normal mood and judgment Family History Patient reports no known family medical history. 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: retired Laboratory Results Past 24 Hours 01/02/17 05:46 Red Blood Count 3.71, Mean Corpuscular Volume 89.8, Mean Corpuscular Hemoglobin 29.6, Mean Corpuscular Hemoglobin Concent 33.0, Mean Platelet Volume 9.9, Neutrophils (%) (Auto) 68.5, Lymphocytes (%) (Auto) 22.2, Monocytes (%) (Auto) 7.5, Eosinophils (%) (Auto) 1.0, Basophils (%) (Auto) 0.4, Neutrophils # (Auto) 6.57, Lymphocytes # (Auto) 2.13, Monocytes # (Auto) 0.72, Eosinophils # (Auto) 0.10, Basophils # (Auto) 0.04 01/02/17 05:46 Test 01/02/17 05:46 White Blood Count 9.60 K/uL (4.8-10.8) Red Blood Count 3.71 M/uL (4.7-6.1) Hemoglobin 11.0 g/dL (14.0-18.0) Hematocrit 33.3 % (42-52) Mean Corpuscular Volume 89.8 fL (80-100) Mean Corpuscular Hemoglobin 29.6 pg (25-34) Mean Corpuscular Hemoglobin Concent 33.0 g/dl (32-36) Platelet Count 184 K/uL (130-400) Mean Platelet Volume 9.9 fL (7.4-10.4) Neutrophils (%) (Auto) 68.5 % Lymphocytes (%) (Auto) 22.2 % Monocytes (%) (Auto) 7.5 % Eosinophils (%) (Auto) 1.0 % Basophils (%) (Auto) 0.4 % Neutrophils # (Auto) 6.57 K/uL (1.4-6.5) Lymphocytes # (Auto) 2.13 K/uL (1.2-3.4) Monocytes # (Auto) 0.72 K/uL (0.11-0.59) Eosinophils # (Auto) 0.10 K/uL (0-0.5) Basophils # (Auto) 0.04 K/uL (0-0.2) RDW Standard Deviation 46.4 fL (36.4-46.3) RDW Coefficient of Variation 14.1 % (11.5-14.5) Immature Granulocyte % (Auto) 0.4 % Immature Granulocyte # (Auto) 0.04 K/uL (0.00-0.02) Anion Gap 8.0 mmol/L (3-11) Est Creatinine Clear Calc Drug Dose 19.1 ml/min Estimated GFR () 18.8 Estimated GFR (Non- 16.2 BUN/Creatinine Ratio 17.6 (10-20) Calcium Level 8.8 mg/dl (8.5-10.1) Magnesium Level 2.3 mg/dl (1.8-2.4) Total Bilirubin 1.0 mg/dl (0.2-1) Direct Bilirubin 0.2 mg/dl (0-0.2) Aspartate Amino Transf (AST/SGOT) 27 U/L (15-37) Alanine Aminotransferase (ALT/SGPT) 68 U/L (12-78) Alkaline Phosphatase 74 U/L (45-117) Total Protein 6.5 gm/dl (6.4-8.2) Albumin 3.0 gm/dl (3.4-5.0) Allergies Coded Allergies: Erythromycin (Verified Allergy, Intermediate, THROAT BEGAN TO SWELL SHUT, 09/04/15) PT Atorvastatin (Verified Adverse Reaction, Intermediate, MYALGIAS, 12/27/16) PT/ALLSCRIPTS Lisinopril (Verified Adverse Reaction, Intermediate, COUGH, 09/04/15) Medications Current Inpatient Medications Medications (Trade) Dose Ordered Sig/Sheree Route Start Time Stop Time Status Last Admin Dose Admin Acetaminophen (Tylenol Tab) 650 mg Q4H PRN PO 12/20/16 22:00 01/19/17 21:59 12/27/16 17:41 650 MG Nitroglycerin (Nitrostat Tab) 0.4 mg UD PRN SL 12/20/16 22:00 01/19/17 21:59 Alfuzosin HCl (Uroxatral Tab) 10 mg HS PO 12/21/16 21:00 01/20/17 20:59 01/01/17 20:47 10 MG Calcium/Vitamin D (Caltrate Plus Tab) 1 tab BID PO 12/21/16 09:00 01/20/17 08:59 01/01/17 20:48 1 TAB Cholecalciferol (Vitamin D Tab) 1,000 inter.unit DAILY PO 12/21/16 09:00 01/20/17 08:59 01/01/17 09:01 1,000 INTER.UNIT Levothyroxine Sodium (Synthroid Tab) 100 mcg DAILYBB PO 12/21/16 06:00 01/20/17 06:59 01/02/17 06:18 100 MCG Metoprolol Succinate (Toprol Xl Tab) 50 mg DAILY PO 12/21/16 09:00 01/20/17 08:59 01/01/17 09:01 50 MG Polyethylene (Miralax Powder Packet) 17 gm HS PO 12/21/16 21:00 01/20/17 20:59 01/01/17 20:48 17 GM Ranitidine HCl (zANTac TAB) 150 mg HS PO 12/21/16 21:00 01/20/17 20:59 01/01/17 20:49 150 MG Simvastatin (Zocor Tab) 20 mg QPM PO 12/21/16 21:00 01/20/17 20:59 01/01/17 20:49 20 MG Loratadine (Claritin Tab) 10 mg QAM PRN PO 12/20/16 22:00 01/19/17 21:59 Miscellaneous Information (Order Awaiting Action) 1 ea QS N/A 12/21/16 00:00 01/20/17 00:00 Pantoprazole Sodium (Protonix Tab) 40 mg QAM PO 12/21/16 09:00 01/20/17 08:59 01/01/17 09:01 40 MG Miscellaneous Information (Order Awaiting Action) 1 ea QS N/A 12/21/16 00:00 01/20/17 00:00 Ondansetron HCl (Zofran Inj) 4 mg Q6H PRN IV 12/20/16 22:15 01/19/17 22:14 12/30/16 10:38 4 MG Doxycycline Hyclate (Vibramycin Cap) 100 mg BID PO 12/27/16 21:00 01/10/17 20:59 01/01/17 20:48 100 MG Enteral Nutritional Formula (Boost Breeze Nutritional Drink) 1 box TID PO 12/27/16 21:00 01/26/17 20:59 12/30/16 07:46 1 BOX Hydralazine HCl (HydrALAZINE INJ) 10 mg Q6H PRN IV. 12/27/16 17:15 01/26/17 17:14 Finasteride (Proscar Tab) 5 mg QAM PO 12/29/16 09:00 01/28/17 08:59 01/01/17 09:01 5 MG Heparin Sodium (Porcine) (Heparin Sq 5000 Unit/0.5ml) 5,000 unit Q12 SQ 12/28/16 21:00 01/27/17 20:59 01/01/17 20:55 5,000 UNIT Bacitracin (Bacitracin Oint) 1 appln Q8H PRN EXT 12/28/16 17:30 01/27/17 17:29 Aspirin (Ecotrin Tab) 81 mg QAM PO 12/30/16 08:00 01/29/17 07:59 01/01/17 08:59 81 MG Duloxetine HCl (Cymbalta Cap) 90 mg DAILY PO 01/01/17 08:00 01/31/17 07:59 01/01/17 08:59 90 MG Amlodipine Besylate (Norvasc Tab) 10 mg QAM PO 01/01/17 08:00 01/31/17 07:59 01/01/17 09:00 10 MG Acyclovir (Zovirax 5% Oint) 1 appln TID EXT 01/01/17 22:00 01/11/17 21:59 01/01/17 21:58 1 APPLN Impression (1) Acute renal insufficiency (2) Ehrlichiosis (3) Trigeminal neuralgia (4) Thrombocytopenia (5) Elevation of cardiac enzymes (6) Hypertension Mr. Bell is a 81-year-old male w/ HTN, OA, spinal stenosis, lumbar radiculopathy, post herpetic trigeminal neuralgia, BPH and h/o CVA. He presented w/ fevers, chills, urinary incontinence, generalized weakness, shortness of breath and left facial droop. Peripheral blood smear revealed WBC intracellular inclusions. 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 Clinical improvement noted with doxycycline. Patient developed oliguric SHAMIR. Urine sediment revealed granular casts c/w ATN. Baseline creatinine has been 1.1 mg/dL. Patient is now nonoliguric but serum creatinine continues to increase in between HD treatments. Patient has persistent azotemia and metabolic acidosis. CT abdomen showed normal appearing kidneys without evidence of obstruction. Recommendations SHAMIR: --creatinine worsened again off of dialysis but other electrolyte acceptable, will continue to monitor over the weekend. Will check his renal panel Tuesday morning and if renal function continues to worsen may need to resume dialysis. -- although he decided he will not consider dialysis anymore however, he is agreeable to wait for lab tomorrow. Assured him that he will never have 6 hours dialysis again HEME: -- Pancytopenia. Peripheral smear revealed inclusion bodies in WBC's suggestive of Ehrlichiosis / Anaplasmosis -- Antibody studies for Ehrlichiosis and Anaplasmosis are negative 12/26/16. PCR study is positive for Anaplasmosis -- No evidence of TMA -- Hematology following CV: -- Admitted w/ elevated troponin -- Cardiology consult reviewed -- Suspected manifestation of diffuse small vessel injury ID: -- Positive for Anaplasmosis by PCR -- ID consult reviewed -- Day # 10 of 10 Doxycycline OTHER: -- Continue PT for strengthening / ambulation
[2017-01-02] MEDS ORDERED: METOPROLOL SUCC 25MG EXT REL TAB PO ONE (12:15)
--- NOTE | 2017-01-02 14:50 | Family Medicine Progress Note ---
Progress Note Date of Service January 02, 2017. Subjective Pt evaluation today including: conversation w/ patient, physical exam, chart review, lab review, review of studies Pain: No pain reported this morning Voiding: no voiding problems, no incontinence Patient is resting comfortably sitting upright in bed this morning with no acute complaints overnight. After a lengthy discussion about his current improvement in condition, he appears to be willing to undergo another round of dialysis if his kidney function continues to decompensate. Constitutional: No chills, No fever Respiratory: No cough, No shortness of breath Cardiovascular: No chest pain, No edema Abdomen: No nausea, No pain, No vomiting Musculoskeletal: No joint pain Skin: + rash (Right flank rash) Medications Current Inpatient Medications Medications (Trade) Dose Ordered Sig/Sheree Route Start Time Stop Time Status Last Admin Dose Admin Acetaminophen (Tylenol Tab) 650 mg Q4H PRN PO 12/20/16 22:00 01/19/17 21:59 12/27/16 17:41 650 MG Nitroglycerin (Nitrostat Tab) 0.4 mg UD PRN SL 12/20/16 22:00 01/19/17 21:59 Alfuzosin HCl (Uroxatral Tab) 10 mg HS PO 12/21/16 21:00 01/20/17 20:59 01/01/17 20:47 10 MG Calcium/Vitamin D (Caltrate Plus Tab) 1 tab BID PO 12/21/16 09:00 01/20/17 08:59 01/02/17 08:39 1 TAB Cholecalciferol (Vitamin D Tab) 1,000 inter.unit DAILY PO 12/21/16 09:00 01/20/17 08:59 01/02/17 08:40 1,000 INTER.UNIT Levothyroxine Sodium (Synthroid Tab) 100 mcg DAILYBB PO 12/21/16 06:00 01/20/17 06:59 01/02/17 06:18 100 MCG Polyethylene (Miralax Powder Packet) 17 gm HS PO 12/21/16 21:00 01/20/17 20:59 01/01/17 20:48 17 GM Ranitidine HCl (zANTac TAB) 150 mg HS PO 12/21/16 21:00 01/20/17 20:59 01/01/17 20:49 150 MG Simvastatin (Zocor Tab) 20 mg QPM PO 12/21/16 21:00 01/20/17 20:59 01/01/17 20:49 20 MG Loratadine (Claritin Tab) 10 mg QAM PRN PO 12/20/16 22:00 01/19/17 21:59 Miscellaneous Information (Order Awaiting Action) 1 ea QS N/A 12/21/16 00:00 01/20/17 00:00 Pantoprazole Sodium (Protonix Tab) 40 mg QAM PO 12/21/16 09:00 01/20/17 08:59 01/02/17 08:40 40 MG Miscellaneous Information (Order Awaiting Action) 1 ea QS N/A 12/21/16 00:00 01/20/17 00:00 Ondansetron HCl (Zofran Inj) 4 mg Q6H PRN IV 12/20/16 22:15 01/19/17 22:14 12/30/16 10:38 4 MG Doxycycline Hyclate (Vibramycin Cap) 100 mg BID PO 12/27/16 21:00 01/10/17 20:59 01/02/17 08:39 100 MG Enteral Nutritional Formula (Boost Breeze Nutritional Drink) 1 box TID PO 12/27/16 21:00 01/26/17 20:59 12/30/16 07:46 1 BOX Hydralazine HCl (HydrALAZINE INJ) 10 mg Q6H PRN IV. 12/27/16 17:15 01/26/17 17:14 Finasteride (Proscar Tab) 5 mg QAM PO 12/29/16 09:00 01/28/17 08:59 01/02/17 08:40 5 MG Heparin Sodium (Porcine) (Heparin Sq 5000 Unit/0.5ml) 5,000 unit Q12 SQ 12/28/16 21:00 01/27/17 20:59 01/02/17 08:49 5,000 UNIT Bacitracin (Bacitracin Oint) 1 appln Q8H PRN EXT 12/28/16 17:30 01/27/17 17:29 Aspirin (Ecotrin Tab) 81 mg QAM PO 12/30/16 08:00 01/29/17 07:59 01/02/17 08:38 81 MG Duloxetine HCl (Cymbalta Cap) 90 mg DAILY PO 01/01/17 08:00 01/31/17 07:59 01/02/17 08:40 90 MG Amlodipine Besylate (Norvasc Tab) 10 mg QAM PO 01/01/17 08:00 01/31/17 07:59 01/02/17 08:38 10 MG Acyclovir (Zovirax 5% Oint) 1 appln TID EXT 01/01/17 22:00 01/11/17 21:59 01/02/17 13:43 1 APPLN Metoprolol Succinate (Toprol Xl Tab) 75 mg DAILY PO 01/03/17 08:00 02/02/17 07:59 Objective Vital Signs Date Time Temp Pulse Resp B/P Pulse Ox O2 Delivery O2 Flow Rate FiO2 01/02/17 08:00 96 Room Air 2.0 01/02/17 07:33 36.7 78 18 168/74 96 Room Air 01/02/17 00:21 36.6 70 20 158/76 98 Room Air 01/01/17 23:30 Room Air 01/01/17 19:44 Room Air 01/01/17 15:37 36.7 69 18 102/57 97 Room Air Physical Exam General Appearance: WD/WN, no apparent distress Respiratory/Chest: chest non-tender, lungs clear, normal breath sounds, no respiratory distress, no accessory muscle use Cardiovascular: regular rate, rhythm, no edema, no JVD Abdomen: normal bowel sounds, non tender, soft Extremities: non-tender, no calf tenderness Neurologic/Psychiatric: alert, normal mood/affect, oriented x 3, + depressed affect Skin: + rash (Rash over right flank) Laboratory Results Results Past 24 Hours Test 01/02/17 05:46 Range/Units White Blood Count 9.60 4.8-10.8 K/uL Red Blood Count 3.71 4.7-6.1 M/uL Hemoglobin 11.0 14.0-18.0 g/dL Hematocrit 33.3 42-52 % Mean Corpuscular Volume 89.8 80-100 fL Mean Corpuscular Hemoglobin 29.6 25-34 pg Mean Corpuscular Hemoglobin Concent 33.0 32-36 g/dl Platelet Count 184 130-400 K/uL Mean Platelet Volume 9.9 7.4-10.4 fL Neutrophils (%) (Auto) 68.5 % Lymphocytes (%) (Auto) 22.2 % Monocytes (%) (Auto) 7.5 % Eosinophils (%) (Auto) 1.0 % Basophils (%) (Auto) 0.4 % Neutrophils # (Auto) 6.57 1.4-6.5 K/uL Lymphocytes # (Auto) 2.13 1.2-3.4 K/uL Monocytes # (Auto) 0.72 0.11-0.59 K/uL Eosinophils # (Auto) 0.10 0-0.5 K/uL Basophils # (Auto) 0.04 0-0.2 K/uL RDW Standard Deviation 46.4 36.4-46.3 fL RDW Coefficient of Variation 14.1 11.5-14.5 % Immature Granulocyte % (Auto) 0.4 % Immature Granulocyte # (Auto) 0.04 0.00-0.02 K/uL Sodium Level 141 136-145 mmol/L Potassium Level 4.9 3.5-5.1 mmol/L Chloride Level 107 98-107 mmol/L Carbon Dioxide Level 26 21-32 mmol/L Anion Gap 8.0 3-11 mmol/L Blood Urea Nitrogen 60 7-18 mg/dl Creatinine 3.40 0.60-1.40 mg/dl Est Creatinine Clear Calc Drug Dose 19.1 ml/min Estimated GFR () 18.8 Estimated GFR (Non- 16.2 BUN/Creatinine Ratio 17.6 10-20 Random Glucose 105 70-99 mg/dl Calcium Level 8.8 8.5-10.1 mg/dl Magnesium Level 2.3 1.8-2.4 mg/dl Total Bilirubin 1.0 0.2-1 mg/dl Direct Bilirubin 0.2 0-0.2 mg/dl Aspartate Amino Transf (AST/SGOT) 27 15-37 U/L Alanine Aminotransferase (ALT/SGPT) 68 12-78 U/L Alkaline Phosphatase 74 45-117 U/L Total Protein 6.5 6.4-8.2 gm/dl Albumin 3.0 3.4-5.0 gm/dl Assessment and Plan 81 y/o M h/o HTN, BPH, asthma, GERD here with c/o fevers and chills started 3 days ago. He also noticed increased episodes of urinary incontinence and complained of fatigue and shortness of breath. Noted to be have elevated creatinine, troponin and low platelet on admission. Peripheral smear was obtained which revealed inclusion bodies consistent with ehrlichia/anaplasmosis. PCR confirmed anaplasmosis. Continues to feel depressed with flat affect Creatinine continues to rise after most recent hemodialysis. 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 - Peripheral smear: Inclusion bodies consistent with ehrlichia/anaplasmosis - PCR confirmation of anaplasmosis - Thrombocytopenia, elevated liver enzymes- improving - Completed 10 day course of Doxycycline for Anaplasmosis - Lyme serology IgM positive, Western blot pending- continue doxycycline until confirmation - Repeat Lyme serology as an outpatient - Already received 10 Days of Doxycycline and total dose for Lyme will be 21 days, so will currently be day 08/11 for Lyme therapy Elevated troponins - 2/2 Small vessel disease versus myocarditis: trending down - Echo - negative for WMA - Cardiology on board - No cardiac intervention - Troponin trended down Initial troponin 13-->14.2--> 17--->18.5-->13.5--->8.08- ->6.08-->3.6-->2.2-->1.7 - Echo 12/31 - Hyperdynamic LV Systolic Function, No regional wall abnormalities - Stress echo before discharge or close follow up Thrombocytopenia with coagulopathy: Secondary to infection- continues to improve - S/p 2 unit platelet transfusion. Platelets 184 - No active bleeding Elevated liver enzymes: Resolved - Secondary to infection - LFTs (AST, LFT, Alk Phos) all wnl Hypotension: - Resolved - Holding antihypertensives due to renal function Uncontrolled Hypertension: - Increased metoprolol to 75mg daily (gave extra 25mg today to 50mg dose from this morning) - Remember to write new script for discharge - Losartan and hydrochlorothiazide currently held due to SHAMIR - Amlodipine 10 mg Left sided facial droop: chronic with h/o postherpetic neuralgia - Was worked up for stroke with head CT, MRI which were unremarkable - Carotid ultrasound revealed right internal carotid stenosis 50-69% - Zocor 20mg - Aspirin 81mg Hypothyroidism: - Continue Synthroid 100mcg Peripheral neuropathy: - Gabapentin held GERD: - Continue home meds - CT: Moderate thickening of distal esophageal wall - EGD as an outpatient COPD -Continue nebs as needed BPH: - Continue finasteride, alfuzosin Depression -Cymbalta 90 mg PT/OT DVT prophylaxis: - SCDs - Heparin subcutaneous Full code Disposition: MedSurg Reviewed: Pt Seen/Exam by Me History Resident Physician Supervision Note: I interviewed and examined the patient. Discussed with Dr. Huitron and agree with findings and plan as documented in the note. 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 Now repeat Lyme IgM titer is positive and may have coinfection, may have ECM rash (faint, old) c/w Lyme as well -Appreciate Nephrology management--> renal function slightly worse today, will follow tomorrow and decide if needs another round of hemodialysis -will need acute rehabilitation with hemodialysis capability if needs continued hemodialysis -Appreciate Cardiology input--> plan for stress ECHO when able-perhaps as an inpatient, repeat limited resting echo continues to show hyperdynamic LV function but otherwise normal -continue Doxy for 21 days total to treat for Lyme as well as anaplasmosis -No need to continue following CBC and LFTs as they are all normalized -PT/OT and will likely need SNF--> PT/OT ordered -Blood pressure still elevated, increased amlodipine to 10 mg and now will increase Toprol-XL to 75 -BPH-added his finasteride back in as dutasteride not available here - increased Cymbalta to 90 mg and he is agreeable for depressed mood DVT proph-heparin Documented By: Randa Monte
[2017-01-02 15:09] VITALS: BP 172/72; PULSE 64; TEMP 36.6; O2SAT 98
[2017-01-02 17:52] VITALS: BP 144/72
[2017-01-02] MEDS: POLYETHYLENE (MIRALAX) 17 GM PACK PO SCH (20:02)
[2017-01-02] MEDS: RANITIDINE HCL 150 MG TAB PO SCH (20:03)
[2017-01-02] MEDS: SIMVASTATIN 20 MG TAB PO SCH (20:04)
[2017-01-02] MEDS: ALFUZosin TAB 10 MG TAB PO SCH (20:04)
[2017-01-03] VITALS: BP 149/73; PULSE 66; TEMP 36.7; O2SAT 96
[2017-01-03] MEDS: LEVOTHYROXINE 100 MCG TAB PO SCH (05:57)
[2017-01-03] MEDS: AVODART~ORDER AWAITING ACTION SCH ×3 (06:51→16:00)
[2017-01-03 07:27] VITALS: BP 155/71; PULSE 69; TEMP 36.5; O2SAT 96
[2017-01-03 07:29] LABS: BUN/CREATININE RATIO 19.5 (10-20); CALCIUM 8.6 mg/dl (8.5-10.1); CREATININE 3.4 mg/dl (0.60-1.40); POTASSIUM 5.1 mmol/L (3.5-5.1)
[2017-01-03 07:30] LABS: PHOSPHORUS 4.6 mg/dl (2.5-4.9)
--- NOTE | 2017-01-03 07:37 | Family Medicine Progress Note ---
Progress Note Date of Service January 03, 2017. Subjective Pt evaluation today including: conversation w/ patient, physical exam, chart review, lab review Patient denies acute issues overnight. He is currently sitting up comfortably. He denies pain and SOB. He says that his bowels are moving, but his urine volume is still lower than baseline. He describes minor tenderness at the right flank where he previously had a rash. He is annoyed with the prolonged dialysis sessions that he has had previously, saying he will only have 2 hour sessions at the most. He admits that he hasn't been ambulating much, except for to the bathroom and back. Constitutional: No chills, No fever Respiratory: No cough, No shortness of breath, No wheezing Cardiovascular: No chest pain, No edema, No palpitations Abdomen: No constipation, No diarrhea, No nausea, No pain, No vomiting Male : + problem reported (oliguria), No dysuria Objective Vital Signs Date Time Temp Pulse Resp B/P Pulse Ox O2 Delivery O2 Flow Rate FiO2 01/03/17 07:27 36.5 69 18 155/71 96 Room Air 01/03/17 00:00 36.7 66 18 149/73 96 Room Air 01/03/17 00:00 Room Air 01/02/17 17:52 144/72 01/02/17 16:00 Room Air 01/02/17 15:09 36.6 64 18 172/72 98 Room Air 01/02/17 08:00 96 Room Air 2.0 Physical Exam General Appearance: WD/WN, no apparent distress ENT: hearing grossly normal Respiratory/Chest: lungs clear, normal breath sounds, no respiratory distress, no accessory muscle use Cardiovascular: regular rate, rhythm, no murmur Abdomen: normal bowel sounds, non tender, soft, + pertinent finding (R flank pain, over a pink area, that patient claims is a resolving rash ?erythema migrans) Extremities: normal inspection, no pedal edema, no calf tenderness Neurologic/Psychiatric: alert, normal mood/affect, oriented x 3 Skin: normal color, warm/dry, no rash Laboratory Results Results Past 24 Hours Test 01/03/17 06:40 Range/Units Sodium Level 142 136-145 mmol/L Potassium Level 5.1 3.5-5.1 mmol/L Chloride Level 108 98-107 mmol/L Carbon Dioxide Level 26 21-32 mmol/L Anion Gap 8.0 3-11 mmol/L Blood Urea Nitrogen 66 7-18 mg/dl Creatinine 3.40 0.60-1.40 mg/dl Est Creatinine Clear Calc Drug Dose 19.1 ml/min Estimated GFR () 18.8 Estimated GFR (Non- 16.2 BUN/Creatinine Ratio 19.5 10-20 Random Glucose 102 70-99 mg/dl Calcium Level 8.6 8.5-10.1 mg/dl Phosphorus Level 4.6 2.5-4.9 mg/dl Albumin 3.0 3.4-5.0 gm/dl Assessment and Plan 81 y/o M h/o HTN, BPH, asthma, GERD admitted with 3 day history of fevers and chills, increased episodes of urinary incontinence, fatigue and SOB. Noted to have elevated creatinine, troponin and low platelet on admission. Peripheral smear was obtained which revealed inclusion bodies consistent with ehrlichia/anaplasmosis. PCR confirmed anaplasmosis. Continues to feel depressed with flat affect SHAMIR: Oliguric secondary to ATN s/p Hemodialysis - S/p 4th run of Hemodialysis performed Tuesday. Creatinine continues to rise after most recent hemodialysis. Will most likely require another dialysis session tomorrow - K+ of 5.1 this morning (4.9 yesterday) - Cr increased to 3.4 (stable) - Continue to monitor creatinine, re-evaluate need for dialysis tomorrow with Nephrology - Holding HCTZ, Gabapentin, and Losartan as per Nephrology recommendations Anaplasmosis / suspect co-infection with Lyme - Peripheral smear: Inclusion bodies consistent with ehrlichia/anaplasmosis. PCR confirmation of anaplasmosis. Thrombocytopenia, elevated liver enzymes- improving. Completed 10 day course of Doxycycline for Anaplasmosis - Lyme serology IgM positive, Western blot pending- continue doxycycline until confirmation - Repeat Lyme serology as an outpatient - Already received 10 Days of Doxycycline and total dose for Lyme will be 21 days, so will currently be day 13 for Lyme therapy Elevated troponins - 2/2 Small vessel disease versus myocarditis: trending down. Echo 5/2 - negative for wall motion abnormalities. Cardiology consulted - recs appreciated. Troponin trended down Initial troponin 13-->14.2--> 17--->18.5 -->13.5--->8.08-->6.08-->3.6-->2.2-->1.7. Repeat Echo 12/31 - Hyperdynamic LV Systolic Function, No regional wall abnormalities - Stress echo before discharge or close follow up Thrombocytopenia with coagulopathy: Secondary to infection- continues to improve. S/p 2 unit platelet transfusion. Platelets 184. No active bleeding Elevated liver enzymes: Resolved - Secondary to infection. LFTs (AST, LFT, Alk Phos) all wnl Blood pressure. Initial hypotension resolved. Subsequently back at hypertensive baseline - Metoprolol to 75mg daily (Requires new script at discharge) - Losartan and hydrochlorothiazide currently held due to SHAMIR - Amlodipine 10 mg Left sided facial droop: chronic with h/o postherpetic neuralgia. Stroke work up with head CT, MRI unremarkable. Carotid ultrasound revealed right internal carotid stenosis 50-69% - Zocor 20mg - Aspirin 81mg Hypothyroidism: - Continue Synthroid 100mcg Peripheral neuropathy: - Gabapentin held GERD: CT: Moderate thickening of distal esophageal wall - Continue home meds - EGD as an outpatient COPD -Continue nebs as needed BPH: - Continue finasteride, alfuzosin Depression -Cymbalta 90 mg PT/OT DVT prophylaxis: - SCDs - Heparin subcutaneous Full code Resident Physician Supervision Note: I interviewed and examined the patient. Discussed with Dr. Vera and agree with findings and plan as documented in the note. Any exceptions or clarifications are listed here: None Documented By: Francisco Hummel feeling ok doesn't want long dialysis anymore but OK w shorter HD treatments goals of care outlined ros otherwise negative except for as above vitals noted nad breathing unlabored chronic appearing facial droop anaplasmosis w ATN - improving. ongoing doxy, ongoing HD deconditioning - PT/OT, anticipate need for rehab DVT proph - heparin SQ Continued [facility] stay due to: other (SHAMIR, oliguria, requiring HD) Discharge planning: home Resident Tracking Resident Involvement: Resident Care Provided Care Provided: Adult Hospital Medicine
[2017-01-03] MEDS: DOXYCYCLINE HYCLATE 100 MG CAP PO SCH ×2 (07:47→20:20)
[2017-01-03] MEDS: METOPROLOL SUCC 50MG EXT REL TAB PO SCH (07:47)
[2017-01-03] MEDS: DULOXETINE (CYMBALTA) 30 MG CAP PO SCH (07:48)
[2017-01-03] MEDS: CHOLECALCIFEROL 1000 INTER.UNIT TAB PO SCH (07:48)
[2017-01-03] MEDS: FINASTERIDE 5 MG TAB PO SCH (07:48)
[2017-01-03] MEDS: ASPIRIN 81 MG ECTAB PO SCH (07:48)
[2017-01-03] MEDS: PANTOprazole SOD 40 MG TAB PO SCH (07:48)
[2017-01-03] MEDS: ACYCLOVIR 5% OINT 15 GM TUBE EXT SCH ×3 (07:48→20:16)
[2017-01-03] MEDS: CALCIUM 600MG + VIT D 400 IU TAB PO SCH ×2 (07:48→20:20)
[2017-01-03] MEDS: AMLODIPINE BESYLATE 5 MG TAB PO SCH (07:48)
[2017-01-03] MEDS: BOOST BREEZE NUTRITION DRINK 1 BOX PO SCH ×3 (07:50→20:00)
[2017-01-03] MEDS: HEPARIN SOD 5000 UNIT/0.5 ML CARP SQ SCH ×2 (09:15→20:27)
--- NOTE | 2017-01-03 11:38 | Nephrology Progress Note ---
Nephrology Progress Note Date of Service January 03, 2017. Chief Complaint Follow-up for dialysis requiring acute kidney injury Subjective Mr. Gill was seen and examined in his room this morning. he has been otherwise feeling fine, appetite decent, denies any shortness of breath or chest pain. He has been out of bed and to the chair and has been walking to the bathroom. Serum creatinine Staying around 3.4 off of dialysis for 2 days and potassium mildly elevated at 5.1. His urine output has been decent. Blood pressure stable of volume status acceptable. Review of Systems A complete review of systems was performed. Pertinent positives are noted above. All other systems are negative. Vital Signs Last 8 Hrs Date Time Temp Pulse Resp B/P Pulse Ox O2 Delivery O2 Flow Rate FiO2 01/03/17 10:43 Room Air 01/03/17 07:27 36.5 69 18 155/71 96 Room Air I & O 24-Hour Column 01/03/17 07:59 Intake Total 680 ml Balance 680 ml Last Recorded Weight Weight (Kilograms): 88.700 Physical Exam GENERAL: elderly male, AAA x 3, pleasant, healthy-appearing, not in any distress. NECK: Supple, no JVD. RESPIRATORY: Normal breathing efforts, no accessory muscle use, clear to auscultation bilaterally, no wheezes or rales. CARDIOVASCULAR: S1, S2 normal, rate rhythm regular. EXTREMITY: No lower extremity edema NEURO: speech fluent. PSYCHIATRY: Normal mood and judgment Family History Patient reports no known family medical history. 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: retired Laboratory Results Past 24 Hours 01/03/17 06:40 Test 01/03/17 06:40 Anion Gap 8.0 mmol/L (3-11) Est Creatinine Clear Calc Drug Dose 19.1 ml/min Estimated GFR () 18.8 Estimated GFR (Non- 16.2 BUN/Creatinine Ratio 19.5 (10-20) Calcium Level 8.6 mg/dl (8.5-10.1) Phosphorus Level 4.6 mg/dl (2.5-4.9) Albumin 3.0 gm/dl (3.4-5.0) Allergies Coded Allergies: Erythromycin (Verified Allergy, Intermediate, THROAT BEGAN TO SWELL SHUT, 09/04/15) PT Atorvastatin (Verified Adverse Reaction, Intermediate, MYALGIAS, 12/27/16) PT/ALLSCRIPTS Lisinopril (Verified Adverse Reaction, Intermediate, COUGH, 09/04/15) Medications Current Inpatient Medications Medications (Trade) Dose Ordered Sig/Sheree Route Start Time Stop Time Status Last Admin Dose Admin Acetaminophen (Tylenol Tab) 650 mg Q4H PRN PO 12/20/16 22:00 01/19/17 21:59 12/27/16 17:41 650 MG Nitroglycerin (Nitrostat Tab) 0.4 mg UD PRN SL 12/20/16 22:00 01/19/17 21:59 Alfuzosin HCl (Uroxatral Tab) 10 mg HS PO 12/21/16 21:00 01/20/17 20:59 01/02/17 20:04 10 MG Calcium/Vitamin D (Caltrate Plus Tab) 1 tab BID PO 12/21/16 09:00 01/20/17 08:59 01/03/17 07:48 1 TAB Cholecalciferol (Vitamin D Tab) 1,000 inter.unit DAILY PO 12/21/16 09:00 01/20/17 08:59 01/03/17 07:48 1,000 INTER.UNIT Levothyroxine Sodium (Synthroid Tab) 100 mcg DAILYBB PO 12/21/16 06:00 01/20/17 06:59 01/03/17 05:57 100 MCG Polyethylene (Miralax Powder Packet) 17 gm HS PO 12/21/16 21:00 01/20/17 20:59 01/01/17 20:48 17 GM Ranitidine HCl (zANTac TAB) 150 mg HS PO 12/21/16 21:00 01/20/17 20:59 01/02/17 20:03 150 MG Simvastatin (Zocor Tab) 20 mg QPM PO 12/21/16 21:00 01/20/17 20:59 01/02/17 20:04 20 MG Loratadine (Claritin Tab) 10 mg QAM PRN PO 12/20/16 22:00 01/19/17 21:59 Miscellaneous Information (Order Awaiting Action) 1 ea QS N/A 12/21/16 00:00 01/20/17 00:00 Pantoprazole Sodium (Protonix Tab) 40 mg QAM PO 12/21/16 09:00 01/20/17 08:59 01/03/17 07:48 40 MG Miscellaneous Information (Order Awaiting Action) 1 ea QS N/A 12/21/16 00:00 01/20/17 00:00 Ondansetron HCl (Zofran Inj) 4 mg Q6H PRN IV 12/20/16 22:15 01/19/17 22:14 12/30/16 10:38 4 MG Doxycycline Hyclate (Vibramycin Cap) 100 mg BID PO 12/27/16 21:00 01/10/17 20:59 01/03/17 07:47 100 MG Enteral Nutritional Formula (Boost Breeze Nutritional Drink) 1 box TID PO 12/27/16 21:00 01/26/17 20:59 12/30/16 07:46 1 BOX Hydralazine HCl (HydrALAZINE INJ) 10 mg Q6H PRN IV. 12/27/16 17:15 01/26/17 17:14 Finasteride (Proscar Tab) 5 mg QAM PO 12/29/16 09:00 01/28/17 08:59 01/03/17 07:48 5 MG Heparin Sodium (Porcine) (Heparin Sq 5000 Unit/0.5ml) 5,000 unit Q12 SQ 12/28/16 21:00 01/27/17 20:59 01/03/17 09:15 5,000 UNIT Bacitracin (Bacitracin Oint) 1 appln Q8H PRN EXT 12/28/16 17:30 01/27/17 17:29 Aspirin (Ecotrin Tab) 81 mg QAM PO 12/30/16 08:00 01/29/17 07:59 01/03/17 07:48 81 MG Duloxetine HCl (Cymbalta Cap) 90 mg DAILY PO 01/01/17 08:00 01/31/17 07:59 01/03/17 07:48 90 MG Amlodipine Besylate (Norvasc Tab) 10 mg QAM PO 01/01/17 08:00 01/31/17 07:59 01/03/17 07:48 10 MG Acyclovir (Zovirax 5% Oint) 1 appln TID EXT 01/01/17 22:00 01/11/17 21:59 01/03/17 07:48 1 APPLN Metoprolol Succinate (Toprol Xl Tab) 75 mg DAILY PO 01/03/17 08:00 02/02/17 07:59 01/03/17 07:47 75 MG Impression (1) Acute renal insufficiency (2) Ehrlichiosis (3) Trigeminal neuralgia (4) Thrombocytopenia (5) Elevation of cardiac enzymes (6) Hypertension Mr. Bell is a 81-year-old male w/ HTN, OA, spinal stenosis, lumbar radiculopathy, post herpetic trigeminal neuralgia, BPH and h/o CVA. He presented w/ fevers, chills, urinary incontinence, generalized weakness, shortness of breath and left facial droop. Peripheral blood smear revealed WBC intracellular inclusions. 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 Clinical improvement noted with doxycycline. Patient developed oliguric SHAMIR. Urine sediment revealed granular casts c/w ATN. Baseline creatinine has been 1.1 mg/dL. Patient is now nonoliguric but serum creatinine continues to increase in between HD treatments. Patient has persistent azotemia and metabolic acidosis. CT abdomen showed normal appearing kidneys without evidence of obstruction. Recommendations SHAMIR: --no clear sign of renal recovery yet, suggested to resume dialysis however patient would like to wait. Plan for 3.5 hours dialysis tomorrow unless there is any clear sign of renal recovery HEME: -- Pancytopenia. Peripheral smear revealed inclusion bodies in WBC's suggestive of Ehrlichiosis / Anaplasmosis -- Antibody studies for Ehrlichiosis and Anaplasmosis are negative 12/26/16. 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
[2017-01-03 15:45] VITALS: BP 131/69; PULSE 62; TEMP 36.4; O2SAT 97
[2017-01-03] MEDS: SIMVASTATIN 20 MG TAB PO SCH (20:20)
[2017-01-03] MEDS: RANITIDINE HCL 150 MG TAB PO SCH (20:20)
[2017-01-03] MEDS: ALFUZosin TAB 10 MG TAB PO SCH (20:20)
[2017-01-03] MEDS: POLYETHYLENE (MIRALAX) 17 GM PACK PO SCH (20:20)
[2017-01-04] VITALS (18 sets, daily range): BP systolic 113–158; BP diastolic 60–81; PULSE 63–84; TEMP 36.2–36.8; O2SAT 94–98
[2017-01-04] MEDS: LEVOTHYROXINE 100 MCG TAB PO SCH (06:07)
[2017-01-04 07:46] LABS: BUN/CREATININE RATIO 21.9 (10-20); CREATININE 3.3 mg/dl (0.60-1.40); POTASSIUM 5.4 mmol/L (3.5-5.1)
[2017-01-04 07:47] LABS: PHOSPHORUS 4.4 mg/dl (2.5-4.9)
[2017-01-04] MEDS: FINASTERIDE 5 MG TAB PO SCH (07:48)
[2017-01-04] MEDS: CALCIUM 600MG + VIT D 400 IU TAB PO SCH ×2 (07:48→19:46)
[2017-01-04] MEDS: ASPIRIN 81 MG ECTAB PO SCH (07:49)
[2017-01-04] MEDS: PANTOprazole SOD 40 MG TAB PO SCH (07:49)
[2017-01-04] MEDS: DULOXETINE (CYMBALTA) 30 MG CAP PO SCH (07:49)
[2017-01-04] MEDS: CHOLECALCIFEROL 1000 INTER.UNIT TAB PO SCH (07:49)
[2017-01-04] MEDS: DOXYCYCLINE HYCLATE 100 MG CAP PO SCH ×2 (07:49→19:45)
[2017-01-04] MEDS: ACYCLOVIR 5% OINT 15 GM TUBE EXT SCH ×3 (07:51→19:48)
[2017-01-04] MEDS: AVODART~ORDER AWAITING ACTION SCH ×3 (07:53→15:50)
[2017-01-04] MEDS: HEPARIN SOD 5000 UNIT/0.5 ML CARP SQ SCH ×2 (07:54→19:53)
[2017-01-04] MEDS: BOOST BREEZE NUTRITION DRINK 1 BOX PO SCH ×2 (07:54→12:45)
--- NOTE | 2017-01-04 08:06 | Family Medicine Progress Note ---
Progress Note Date of Service January 04, 2017. Subjective See discharge summary Objective Vital Signs Date Time Temp Pulse Resp B/P Pulse Ox O2 Delivery O2 Flow Rate FiO2 01/04/17 07:42 36.8 64 18 158/70 95 Room Air 01/04/17 00:00 Room Air 01/04/17 00:00 36.6 63 20 143/75 98 Room Air 01/03/17 20:00 Room Air 01/03/17 17:18 Room Air 01/03/17 15:45 36.4 62 18 131/69 97 Room Air 01/03/17 10:43 Room Air Assessment and Plan Resident Physician Supervision Note: I interviewed and examined the patient. Discussed with Dr. Vera and agree with findings and plan as documented in the note. Any exceptions or clarifications are listed here: None Documented By: Francisco Hummel feeling OK OK w going to rehab vitals noted nad breathing unlabored anaplasmosis - doxy ATN - ongoing dialysis Resident Tracking Resident Involvement: Resident Care Provided Care Provided: Adult Hospital Medicine
--- NOTE | 2017-01-04 11:12 | Nephrology Progress Note ---
Nephrology Progress Note Date of Service January 04, 2017. Chief Complaint Follow-up for dialysis requiring acute kidney injury Subjective Mr. Gill Was seen and examined in his room this morning. He has been overall feeling fine. And no significant improvement in renal function creatinine remained stable around 3.3 however potassium has been going up. Blood pressure stable. Review of Systems A complete review of systems was performed. Pertinent positives are noted above. All other systems are negative. Vital Signs Last 8 Hrs Date Time Temp Pulse Resp B/P Pulse Ox O2 Delivery O2 Flow Rate FiO2 01/04/17 07:42 36.8 64 18 158/70 95 Room Air I & O 24-Hour Column 01/04/17 08:00 Intake Total 475 ml Output Total 450 ml Balance 25 ml Last Recorded Weight Weight (Kilograms): 89.100 Physical Exam GENERAL: elderly male, AAA x 3, pleasant, healthy-appearing, not in any distress. NECK: Supple, no JVD. RESPIRATORY: Normal breathing efforts, no accessory muscle use, clear to auscultation bilaterally, no wheezes or rales. CARDIOVASCULAR: S1, S2 normal, rate rhythm regular. EXTREMITY: No lower extremity edema NEURO: speech fluent. PSYCHIATRY: Normal mood and judgment Family History Patient reports no known family medical history. 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: retired Laboratory Results Past 24 Hours 01/04/17 06:50 Test 01/04/17 06:50 Anion Gap 8.0 mmol/L (3-11) Est Creatinine Clear Calc Drug Dose 19.7 ml/min Estimated GFR () 19.5 Estimated GFR (Non- 16.8 BUN/Creatinine Ratio 21.9 (10-20) Calcium Level 9.0 mg/dl (8.5-10.1) Phosphorus Level 4.4 mg/dl (2.5-4.9) Albumin 3.1 gm/dl (3.4-5.0) Allergies Coded Allergies: Erythromycin (Verified Allergy, Intermediate, THROAT BEGAN TO SWELL SHUT, 09/04/15) PT Atorvastatin (Verified Adverse Reaction, Intermediate, MYALGIAS, 12/27/16) PT/ALLSCRIPTS Lisinopril (Verified Adverse Reaction, Intermediate, COUGH, 09/04/15) Medications Current Inpatient Medications Medications (Trade) Dose Ordered Sig/Sheree Route Start Time Stop Time Status Last Admin Dose Admin Acetaminophen (Tylenol Tab) 650 mg Q4H PRN PO 12/20/16 22:00 01/19/17 21:59 12/27/16 17:41 650 MG Nitroglycerin (Nitrostat Tab) 0.4 mg UD PRN SL 12/20/16 22:00 01/19/17 21:59 Alfuzosin HCl (Uroxatral Tab) 10 mg HS PO 12/21/16 21:00 01/20/17 20:59 01/03/17 20:20 10 MG Calcium/Vitamin D (Caltrate Plus Tab) 1 tab BID PO 12/21/16 09:00 01/20/17 08:59 01/04/17 07:48 1 TAB Cholecalciferol (Vitamin D Tab) 1,000 inter.unit DAILY PO 12/21/16 09:00 01/20/17 08:59 01/04/17 07:49 1,000 INTER.UNIT Levothyroxine Sodium (Synthroid Tab) 100 mcg DAILYBB PO 12/21/16 06:00 01/20/17 06:59 01/04/17 06:07 100 MCG Polyethylene (Miralax Powder Packet) 17 gm HS PO 12/21/16 21:00 01/20/17 20:59 01/03/17 20:20 17 GM Ranitidine HCl (zANTac TAB) 150 mg HS PO 12/21/16 21:00 01/20/17 20:59 01/03/17 20:20 150 MG Simvastatin (Zocor Tab) 20 mg QPM PO 12/21/16 21:00 01/20/17 20:59 01/03/17 20:20 20 MG Loratadine (Claritin Tab) 10 mg QAM PRN PO 12/20/16 22:00 01/19/17 21:59 Miscellaneous Information (Order Awaiting Action) 1 ea QS N/A 12/21/16 00:00 01/20/17 00:00 Pantoprazole Sodium (Protonix Tab) 40 mg QAM PO 12/21/16 09:00 01/20/17 08:59 01/04/17 07:49 40 MG Miscellaneous Information (Order Awaiting Action) 1 ea QS N/A 12/21/16 00:00 01/20/17 00:00 Ondansetron HCl (Zofran Inj) 4 mg Q6H PRN IV 12/20/16 22:15 01/19/17 22:14 12/30/16 10:38 4 MG Doxycycline Hyclate (Vibramycin Cap) 100 mg BID PO 12/27/16 21:00 01/10/17 20:59 01/04/17 07:49 100 MG Enteral Nutritional Formula (Boost Breeze Nutritional Drink) 1 box TID PO 12/27/16 21:00 01/26/17 20:59 12/30/16 07:46 1 BOX Hydralazine HCl (HydrALAZINE INJ) 10 mg Q6H PRN IV. 12/27/16 17:15 01/26/17 17:14 Finasteride (Proscar Tab) 5 mg QAM PO 12/29/16 09:00 01/28/17 08:59 01/04/17 07:48 5 MG Heparin Sodium (Porcine) (Heparin Sq 5000 Unit/0.5ml) 5,000 unit Q12 SQ 12/28/16 21:00 01/27/17 20:59 01/03/17 20:27 5,000 UNIT Bacitracin (Bacitracin Oint) 1 appln Q8H PRN EXT 12/28/16 17:30 01/27/17 17:29 Aspirin (Ecotrin Tab) 81 mg QAM PO 12/30/16 08:00 01/29/17 07:59 01/04/17 07:49 81 MG Duloxetine HCl (Cymbalta Cap) 90 mg DAILY PO 01/01/17 08:00 01/31/17 07:59 01/04/17 07:49 90 MG Amlodipine Besylate (Norvasc Tab) 10 mg QAM PO 01/01/17 08:00 01/31/17 07:59 01/03/17 07:48 10 MG Acyclovir (Zovirax 5% Oint) 1 appln TID EXT 01/01/17 22:00 01/11/17 21:59 01/04/17 07:51 1 APPLN Metoprolol Succinate (Toprol Xl Tab) 75 mg DAILY PO 01/03/17 08:00 02/02/17 07:59 01/03/17 07:47 75 MG Impression (1) Acute renal insufficiency (2) Ehrlichiosis (3) Trigeminal neuralgia (4) Thrombocytopenia (5) Elevation of cardiac enzymes (6) Hypertension Mr. Bell is a 81-year-old male w/ HTN, OA, spinal stenosis, lumbar radiculopathy, post herpetic trigeminal neuralgia, BPH and h/o CVA. He presented w/ fevers, chills, urinary incontinence, generalized weakness, shortness of breath and left facial droop. Peripheral blood smear revealed WBC intracellular inclusions. 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 Clinical improvement noted with doxycycline. Patient developed oliguric SHAMIR. Urine sediment revealed granular casts c/w ATN. Baseline creatinine has been 1.1 mg/dL. Patient is now nonoliguric but serum creatinine continues to increase in between HD treatments. Patient has persistent azotemia and metabolic acidosis. CT abdomen showed normal appearing kidneys without evidence of obstruction. Recommendations SHAMIR: --Will resume dialysis, continue on 3.5 hours 3 times weekly and continue to monitor for renal recovery. Will continue and hold [facility] while patient was getting rehab and once patient ready to be discharged, he decided to go to [place] dialysis unit. Discussed with social service for outpatient dialysis arrangement and to have [facility]. -- dose medications for GFR less than 15, avoid nephrotoxins medications, follow low-potassium diet. -- Start on renal vitamin once daily. -- Will check phosphate the next lab and if elevated, will start on phosphate binder -- okay to be discharged HEME: -- Pancytopenia. Peripheral smear revealed inclusion bodies in WBC's suggestive of Ehrlichiosis / Anaplasmosis -- Antibody studies for Ehrlichiosis and Anaplasmosis are negative 12/26/16. 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
[2017-01-04] MEDS: AMLODIPINE BESYLATE 5 MG TAB PO SCH (12:49)
[2017-01-04] MEDS: METOPROLOL SUCC 50MG EXT REL TAB PO SCH (12:49)
[2017-01-04] MEDS ORDERED: DXY100 PO (13:57)
[2017-01-04] MEDS ORDERED: TPRSR50 PO (13:57)
[2017-01-04] MEDS ORDERED: PRS5 PO (13:57)
[2017-01-04] MEDS ORDERED: B-COCAP20 PO (13:57)
[2017-01-04] MEDS ORDERED: NRV5 PO (13:57)
--- NOTE | 2017-01-04 14:11 | Discharge Instructions ---
Discharge Instructions Date of Service January 04, 2017. Admission Reason for Admission: Elevated Troponin, Stroke-Like Symptoms Discharge Discharge Diagnosis / Problem: Anaplasmosis, SHAMIR requiring dialysis Discharge Goals Goal(s): Decrease discomfort, Improve function, Improve disease control, Learn about illness, Diagnostic testing, Therapeutic intervention Activity Recommendations Activity Limitations: resume your previous activity . Instructions / Follow-Up Instructions / Follow-Up 81 y/o M h/o HTN, BPH, asthma, GERD admitted with 3 day history of fevers and chills, increased episodes of urinary incontinence, fatigue and SOB. Noted to have elevated creatinine, troponin and low platelet on admission. Peripheral smear was obtained which revealed inclusion bodies consistent with ehrlichia/anaplasmosis. PCR confirmed anaplasmosis. Continues to feel depressed with flat affect SHAMIR: Oliguric secondary to ATN s/p Hemodialysis - S/p 5th run of Hemodialysis performed 01/04. Potassium had continued to rise after most recent hemodialysis, creatinine elevated but stable. 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 PCR confirmation of anaplasmosis. Thrombocytopenia, elevated liver enzymes- improving. Completed 10 day course of Doxycycline for Anaplasmosis - Lyme serology IgM positive, Western blot pending- continue doxycycline until confirmation - Repeat Lyme serology as an outpatient - Already received 10 Days of Doxycycline and total dose for Lyme will be 21 days, so will currently be day 14/21 for Lyme therapy - Will most likely end up completing 21 days of doxycycline treatment Elevated troponins - 2/2 Small vessel disease versus myocarditis: trending down. - Echo 12/21 - negative for wall motion abnormalities. - Cardiology consulted - recs appreciated. - Troponin trended down Initial troponin 13-->14.2--> 17--->18.5-->13.5--->8.08- ->6.08-->3.6-->2.2-->1.7. 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 S/p 2 unit platelet transfusion. Platelets 184. No active bleeding Elevated liver enzymes: Resolved - Secondary to infection. LFTs (AST, LFT, Alk Phos) all wnl Blood pressure. - Initial hypotension resolved. Subsequently back at hypertensive baseline - Losartan and hydrochlorothiazide currently held due to SHAMIR - Metoprolol increased from 50mg to 75mg daily - Amlodipine 10 mg started for improved control Left sided facial droop: - Chronic with h/o postherpetic neuralgia. - Stroke work up with head CT, MRI unremarkable. Carotid ultrasound revealed right internal carotid stenosis 50-69% - Zocor 20mg - Aspirin 81mg Hypothyroidism: - Continue Synthroid 100mcg Peripheral neuropathy: - Gabapentin held GERD: - CT: Moderate thickening of distal esophageal wall - Continue home meds - EGD to be arranged as an outpatient COPD -Continue nebs as needed BPH: - Continue finasteride, alfuzosin Depression -Cymbalta 90 mg PT/OT DVT prophylaxis: - SCDs - Heparin subcutaneous Full code Current Hospital Diet Patient's current hospital diet: AHA Diet (Heart Healthy) Discharge Diet Recommended Diet: AHA Diet (Heart Healthy) Procedures Procedures Performed: Insertion Of Perm Catheter, Right Internal Jugular Approach, Ultrasound Localization Of Right Internal Jugular Vein, Fluoroscopy for Positioning Pending Studies Studies pending at discharge: yes List of pending studies: Western blot confirmation test Laboratory Results Lipid Panel Test 12/20/16 22:16 Range/Units Triglycerides Level 164 H 0-150 mg/dl Cholesterol Level 103 0-200 mg/dl HDL Cholesterol 12 mg/dl Cholesterol/HDL Ratio 8.6 LDL Cholesterol, Calculated 58 mg/dl Medical Emergencies . Who to Call and When: Medical Emergencies: If at any time you feel your situation is an emergency, please call 911 immediately. . Non-Emergent Contact Non-Emergency issues call your: Primary Care Provider . . "Provider Documentation" section prepared by Saskia Vera. . VTE Core Measure Inpt VTE Proph given/why not?: Unfractionated heparin SQ, SCD's
--- NOTE | 2017-01-04 18:21 | Discharge Summary ---
Discharge Summary Date of Service January 04, 2017. Discharge Summary Admission Date: December 20, 2016 at 22:17 Discharge Date: January 04, 2017 Discharge Disposition: Rehab Principal Diagnosis: Anaplasmosis, SHAMIR requiring HD Discharge Exam Patient denies acute events overnight. He is not a fan of prolonged dialysis, but is agreeable if absolutely necessary. He denies pain or discomfort. Minimal improvement in urine production. Review of Systems: Constitutional: No chills, No fever Respiratory: No cough, No shortness of breath, No wheezing Cardiovascular: No chest pain, No edema, No palpitations Abdomen: No constipation, No diarrhea, No nausea, No pain, No vomiting Genitourinary - Male: No dysuria, No hematuria Physical Exam: General Appearance: WD/WN, no apparent distress ENT: hearing grossly normal Neck: supple Respiratory/Chest: lungs clear, normal breath sounds, no respiratory distress, no accessory muscle use Cardiovascular: regular rate, rhythm, no murmur, normal peripheral pulses Abdomen / GI: normal bowel sounds, non tender, soft Extremities: normal inspection, no calf tenderness, normal capillary refill , no pedal edema Neurologic/Psychiatric: alert, normal mood/affect, oriented x 3, + facial droop (left-sided. Chronic.) Skin: normal color, warm/dry, no rash Hospital Course 81 y/o M h/o HTN, BPH, asthma, GERD admitted with 3 day history of fevers and chills, increased episodes of urinary incontinence, fatigue and SOB. Noted to have elevated creatinine, troponin and low platelet on admission. Peripheral smear was obtained which revealed inclusion bodies consistent with ehrlichia/anaplasmosis. PCR confirmed anaplasmosis. Continues to feel depressed with flat affect SHAMIR: Oliguric secondary to ATN s/p Hemodialysis - S/p 5th run of Hemodialysis performed 01/04. Potassium had continued to rise after most recent hemodialysis, creatinine elevated but stable. 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 PCR confirmation of anaplasmosis. Thrombocytopenia, elevated liver enzymes- improving. Completed 10 day course of Doxycycline for Anaplasmosis - Lyme serology IgM positive, Western blot pending- continue doxycycline until confirmation - Repeat Lyme serology as an outpatient - Already received 10 Days of Doxycycline and total dose for Lyme will be 21 days, so will currently be day 14/21 for Lyme therapy - Will most likely end up completing 21 days of doxycycline treatment Elevated troponins - 2/2 Small vessel disease versus myocarditis: trending down. - Echo 12/21 - negative for wall motion abnormalities. - Cardiology consulted - recs appreciated. - Troponin trended down Initial troponin 13-->14.2--> 17--->18.5-->13.5--->8.08- ->6.08-->3.6-->2.2-->1.7. 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 S/p 2 unit platelet transfusion. Platelets 184. No active bleeding Elevated liver enzymes: Resolved - Secondary to infection. LFTs (AST, LFT, Alk Phos) all wnl Blood pressure. - Initial hypotension resolved. Subsequently back at hypertensive baseline - Losartan and hydrochlorothiazide currently held due to SHAMIR - Metoprolol increased from 50mg to 75mg daily - Amlodipine 10 mg started for improved control Left sided facial droop: - Chronic with h/o postherpetic neuralgia. - Stroke work up with head CT, MRI unremarkable. Carotid ultrasound revealed right internal carotid stenosis 50-69% - Zocor 20mg - Aspirin 81mg Hypothyroidism: - Continue Synthroid 100mcg Peripheral neuropathy: - Gabapentin held GERD: - CT: Moderate thickening of distal esophageal wall - Continue home meds - EGD to be arranged as an outpatient COPD -Continue nebs as needed BPH: - Continue finasteride, alfuzosin Depression -Cymbalta 90 mg PT/OT DVT prophylaxis: - SCDs - Heparin subcutaneous Full code Total Time Spent: Less than 30 minutes This includes examination of the patient, discharge planning, medication reconciliation, and communication with other providers. Discharge Instructions Please refer to the electronic Patient Visit Report (Discharge Instructions) for additional information. Resident Tracking Resident Involvement: Resident Care Provided Care Provided: Adult Hospital Medicine Resident Tracking Resident Involvement: Resident Care Provided Care Provided: [facility]
[2017-01-04] MEDS: POLYETHYLENE (MIRALAX) 17 GM PACK PO SCH (19:46)
[2017-01-04] MEDS: ALFUZosin TAB 10 MG TAB PO SCH (19:47)
[2017-01-04] MEDS: RANITIDINE HCL 150 MG TAB PO SCH (19:47)
[2017-01-04] MEDS: SIMVASTATIN 20 MG TAB PO SCH (19:48)
[2017-01-04] MEDS ORDERED: BOOST BREEZE NUTRITION DRINK 1 BOX PO SCH (20:00)
[2017-01-05] MEDS: LEVOTHYROXINE 100 MCG TAB PO SCH (06:03)
[2017-01-05 07:29] VITALS: BP 142/70; PULSE 67; TEMP 36.6; O2SAT 95
[2017-01-05 07:36] LABS: BUN/CREATININE RATIO 18.3 (10-20); CALCIUM 8.5 mg/dl (8.5-10.1)
[2017-01-05 07:37] LABS: PHOSPHORUS 4.8 mg/dl (2.5-4.9)
[2017-01-05] MEDS: AVODART~ORDER AWAITING ACTION SCH ×2 (07:47)
[2017-01-05] MEDS: DOXYCYCLINE HYCLATE 100 MG CAP PO SCH (07:48)
[2017-01-05] MEDS: ACYCLOVIR 5% OINT 15 GM TUBE EXT SCH (07:48)
[2017-01-05] MEDS: DULOXETINE (CYMBALTA) 30 MG CAP PO SCH (07:48)
[2017-01-05] MEDS: PANTOprazole SOD 40 MG TAB PO SCH (07:48)
[2017-01-05] MEDS: FINASTERIDE 5 MG TAB PO SCH (07:48)
[2017-01-05] MEDS: AMLODIPINE BESYLATE 5 MG TAB PO SCH (07:48)
[2017-01-05] MEDS: ASPIRIN 81 MG ECTAB PO SCH (07:48)
[2017-01-05] MEDS: CHOLECALCIFEROL 1000 INTER.UNIT TAB PO SCH (07:48)
[2017-01-05] MEDS: CALCIUM 600MG + VIT D 400 IU TAB PO SCH (07:49)
--- NOTE | 2017-01-05 07:59 | Progress Note ---
Progress Note Date of Service January 05, 2017. Progress Note Patient did not leave due to transportation issues. Remained stable overnight. No acute health issues overnight. Date Time Temp Pulse Resp B/P Pulse Ox O2 Delivery O2 Flow Rate FiO2 01/05/17 07:29 36.6 67 20 142/70 95 Room Air 01/05/17 00:00 Room Air 01/04/17 23:53 36.3 73 20 126/72 94 Room Air 01/04/17 20:00 Room Air 01/04/17 16:00 Nasal Cannula 2.0 01/04/17 15:51 36.5 84 20 95 Room Air 01/04/17 15:06 36.5 84 20 131/71 95 Room Air 01/04/17 13:10 36.5 82 18 113/69 96 01/04/17 12:40 36.2 72 148/65 01/04/17 12:10 66 126/60 01/04/17 12:00 70 130/64 01/04/17 11:45 69 124/67 01/04/17 11:30 76 131/71 01/04/17 11:15 75 129/69 01/04/17 11:00 79 133/74 01/04/17 10:45 76 141/71 01/04/17 10:30 74 137/68 01/04/17 10:15 80 148/75 01/04/17 10:00 76 154/81 01/04/17 09:45 36.2 72 139/67 01/04/17 08:00 Nasal Cannula 2.0 Plan: No changes in medical management. See plan from yesterday's discharge summary. Plans for transportation to [facility] at 10:30 am today.
[2017-01-05] MEDS ORDERED: NEPHROCAPS PO SCH (08:00)
[2017-01-05] MEDS: METOPROLOL SUCC 50MG EXT REL TAB PO SCH (08:52)
[2017-01-05 10:10] LABS: 18KDIGG BAND NONREACTIVE (NONREACTIVE); 23KDIGG BAND REACTIVE (NONREACTIVE); 23KDIGM BAND REACTIVE (NONREACTIVE); 28KDIGG BAND NONREACTIVE (NONREACTIVE); 30KDIGG BAND NONREACTIVE (NONREACTIVE); 39KDIGG BAND NONREACTIVE (NONREACTIVE); 39KDIGM BAND REACTIVE (NONREACTIVE); 41KDIGG BAND NONREACTIVE (NONREACTIVE); 41KDIGM BAND REACTIVE (NONREACTIVE); 45KDIGG BAND REACTIVE (NONREACTIVE); 58KDIGG BAND REACTIVE (NONREACTIVE); 66KDIGG BAND NONREACTIVE (NONREACTIVE); 93KDIGG BAND NONREACTIVE (NONREACTIVE)
--- NOTE | 2017-01-05 18:44 | Progress Note ---
Progress Note Date of Service January 05, 2017. Progress Note seen briefly - didn't go to [facility] last night because of wanting family to transport and family not available until this AM feeling the same stable for [facility]
== END 2017-01-05 11:00 | DRG 867 ==
LOC: ENRESERVDT → ENRESERVTM → C.EDB 18:02 → C.2T 22:17 → C.4E 12-29 13:09
PROVIDERS: ADMIT Hospitalist; ATTEND Family Medicine
PROC: 02HV33Z Insertion of Infusion Device into Superior Vena Cava, Percutaneous Approach (ICD-10-PCS; principal; 2016-12-24 15:30)
DX: A77.49 Other ehrlichiosis (principal); N18.6 End stage renal disease; N17.0 Acute kidney failure with tubular necrosis; I12.0 Hypertensive chronic kidney disease with stage 5 chronic kidney disease or end stage renal disease; E66.9 Obesity, unspecified; Z68.29 Body mass index [BMI] 29.0-29.9, adult; N40.1 Benign prostatic hyperplasia with lower urinary tract symptoms; N39.498 Other specified urinary incontinence; R35.0 Frequency of micturition; R33.8 Other retention of urine; R39.15 Urgency of urination; J44.9 Chronic obstructive pulmonary disease, unspecified; E78.00 Pure hypercholesterolemia, unspecified; K21.9 Gastro-esophageal reflux disease without esophagitis; H91.90 Unspecified hearing loss, unspecified ear; M19.90 Unspecified osteoarthritis, unspecified site; F32.9 Major depressive disorder, single episode, unspecified; K59.00 Constipation, unspecified; J30.2 Other seasonal allergic rhinitis; I51.4 Myocarditis, unspecified; D72.819 Decreased white blood cell count, unspecified; I65.21 Occlusion and stenosis of right carotid artery; I95.9 Hypotension, unspecified; M54.16 Radiculopathy, lumbar region; M48.06 Spinal stenosis, lumbar region; G62.9 Polyneuropathy, unspecified; E03.9 Hypothyroidism, unspecified; D69.6 Thrombocytopenia, unspecified; M16.10 Unilateral primary osteoarthritis, unspecified hip; G50.0 Trigeminal neuralgia; Z79.82 Long term (current) use of aspirin; Z79.899 Other long term (current) drug therapy; Z86.73 Personal history of transient ischemic attack (TIA), and cerebral infarction without residual deficits; Z88.8 Allergy status to other drugs, medicaments and biological substances; Z88.3 Allergy status to other anti-infective agents; R29.810 Facial weakness

== ENCOUNTER → 2017-01-20 | Outpatient (CLI) | payer OTHER ==
[~2017-01-20] MED LIST changes: +B-COCAP20 PO; +CALCTAB7 PO; +CAPSCRE3 TOP; +CRS20 PO; -CYM/60 PO; +CYM60 PO; +DUTA1CAP3 PO; +DXY100 PO; -FLUO0.05 TOP; +GABA1CAP4 PO; -GABA800T PO; +LEVO100T7 PO; -LEVO125T72 PO; -LOSA1TAB38 PO; +LOSA50TA6 PO; -METO-217 PO; +METO-479 PO; +MOME100A INH; +NRV5 PO; -OMEP40CA PO; +OMEP40CA41 PO; +PRED1SUS17 OPL; +PRS5 PO; -SILD100T PO; +TADA5TAB11 PO; +TPRSR50 PO; +TROS1CAP2 PO; -TROS60CA PO; +VALA500T39 PO; +VNTHFA/IN INH; +ZNTT/150 PO
[2017-01-20 16:02] LABS: BLOOD UREA NITROGEN 48 mg/dl (7-18); BUN/CREATININE RATIO 25.2 (10-20); CARBON DIOXIDE 23 mmol/L (21-32); CHLORIDE 110 mmol/L (98-107); GLUCOSE 99 mg/dl (70-99); MAGNESIUM 2.2 mg/dl (1.8-2.4); POTASSIUM 4.3 mmol/L (3.5-5.1); SODIUM 143 mmol/L (136-145)
[2017-01-20 16:03] LABS: PHOSPHORUS 3.7 mg/dl (2.5-4.9)
[2017-01-20 16:06] LABS: CALCIUM 9.3 mg/dl (8.5-10.1)
== END | disposition home or self-care (01) ==
LOC: C.LAB1850 14:10
PROVIDERS: ATTEND Internal Medicine Nephrology
DX: N28.9 Disorder of kidney and ureter, unspecified (principal)

== ENCOUNTER 2017-01-31 07:52 | Day surgery (SDC) | payer OTHER ==
[~2017-01-31] VITALS: Ht 172.7 cm; Wt 91.0 kg
[~2017-01-31 07:52] MED LIST changes: -CRS20 PO; -GABA1CAP4 PO; -LOSA50TA6 PO; -METO-479 PO; -PRED1SUS17 OPL; -VALA500T39 PO
[2017-01-31 08:10] VITALS: BP 163/81; PULSE 80; TEMP 36.7; O2SAT 91; Ht 172.7 cm; Wt 91.0 kg
--- NOTE | 2017-01-31 09:04 | History and Physical ---
History & Physical Date of Service Jan 31, 2017. History & Physical Chief Complaint Functioning kidneys History of Present Illness The patient is a 81 year old male with multiple medical problems, admitted d/t acute renal failure and had a permcath insertion for HD. This is no longer needed. Pt admits malaise, fatigue. Denies FULTON, fever, chills, chest pain, SOB , abd pain, N/V, rest pain, claudication, other complaints. Allergies Coded Allergies: Erythromycin (Verified Allergy, Intermediate, THROAT BEGAN TO SWELL SHUT, 09/04/15) PT Lisinopril (Verified Adverse Reaction, Intermediate, COUGH, 09/04/15) Atorvastatin (Verified Adverse Reaction, Unknown, MYALGIAS, 09/04/15) PT/ALLSCRIPTS Home Medications Scheduled Alfuzosin HCl (Uroxatral), 10 MG PO HS Aspirin (Aspirin Ec), 325 MG PO DAILY Calcium Carbonate-Vitamin D W/ (Caltrate 600 Plus), 1 TAB PO BID Cholecalciferol (Vitamin D 1000 Unit), 1,000 INTER.UNIT PO DAILY Duloxetine HCl (Duloxetine HCl), 60 MG PO DAILY Dutasteride (Dutasteride), 0.5 MG PO DAILY Gabapentin (Gabapentin), 800 MG PO TID Hydrochlorothiazide (Hctz), 12.5 MG PO DAILY Levothyroxine Sodium (Levothyroxine Sodium), 100 MCG PO DAILY Losartan Potassium (Cozaar), 100 MG PO DAILY Metoprolol Succinate (Metoprolol Succinate ER), 50 MG PO DAILY Mometasone Furoate-Formoterol (Dulera 100/5 Mcg), 2 PUFFS INH Q12 Omeprazole (Prilosec), 40 MG PO DAILY Polyethylene Glycol 3350 (Miralax), 1 TBS PO HS Ranitidine (Zantac), 150 MG PO HS Simvastatin (Zocor), 20 MG PO QPM Tadalafil (Cialis), 5 MG PO DAILY Trospium Chloride (Trospium Chloride Er), 60 MG PO DAILY Scheduled PRN Albuterol Hfa (Ventolin Hfa), 2 PUFF INH Q4 PRN for Shortness of Breath Capsaicin (Zostrix Arthritis Pain Re), 1 APPLN TOP QID PRN for Pain Desloratadine (Clarinex), 5 MG PO DAILY PRN for ALLERGIES Problem List Medical Problems: (1) Acute renal insufficiency (2) Asthma (3) Chest pain (4) DJD (degenerative joint disease) of hip (5) Ehrlichiosis (6) Elevation of cardiac enzymes (7) Enlarged prostate (8) Hypertension (9) Osteoarthritis (10) Thrombocytopenia (11) Trigeminal neuralgia Surgical / Medical History Hx Cardiac Surgery: No Hx Abdominal Surgery: No Hx Cancer Surgery: No Hx Thoracic Surgery: No Hx Orthopedic: Yes (left hip, finger) Hx Urinary Tract Surgery: No HX Other Surgery: No Family History Patient reports no known family medical history. Social History Smoking Status: Never Smoker Hx Tobacco Use In Past Year?: No Hx Alcohol Use - Type & Amnt: Yes (6 beers per week) Hx Substance Use -Type & Amnt: No Review of Systems Constitutional: + malaise, No chills, No fever Skin: No change in color Eyes: No visual changes ENMT: No sore throat Respiratory: No cough, No hemoptysis, No orthopnea, No short of breath Cardiovascular: No chest pain, No palpitations, No syncope, No edema, No intermittent claudication Gastrointestinal: No abdominal pain, No nausea, No vomiting, No anorexia Neurologic: No dizziness, No lethargy, No numbness, No tingling Physical Exam Constitutional: General Apperance: well-nourished, well-developed Level of Distress: NAD, acutely ill, chronically ill Psychiatric: Mental Status: active & alert, normal mood, normal affect Orientation: oriented except where noted, to time, to place, to person Memory: recent memory normal, remote memory normal Head: normocephalic, atraumatic Eyes: EOM: EOMI ENMT: normal ENT inspection, hearing grossly normal Neck: supple, trachea midline Lungs: Respiratory effort: no dyspnea, good air movement Auscultation: breath sounds normal, no wheezing Cardiovascular: Apical Impulse: not displaced Heart Auscultation: RRR, no murmurs, no rubs, no gallops Peripheral Pulses: Pulses: full and equal, in all extremities except if noted Bruits: none appreciated Carotid Pulse: normal on the left, normal on the right Brachial Pulses: normal on the left, normal on the right Radial Pulse: normal on the left, normal on the right Femoral Pulse: normal on the left, normal on the right Posterior Tibialis Pulse: decreased on the left, decreased on the right Dorsalis Pedis Pulse: decreased on the left, decreased on the right Abdomen: Bowel Sounds: normal Inspection & Palpation: soft, non-distended, no tenderness, guarding & rebound Musculoskeletal: normal strength (5/5 throughout), normal tone Extremities: Upper Right: no cyanosis, no edema, no varicosities Upper Left: no cyanosis, no edema, no varicosities Lower Right: no cyanosis, no edema, no varicosities Lower Left: no cyanosis, no edema, no varicosities Neurologic: Cranial Nerves: grossly intact Sensation: grossly intact Assessment and Plan ASSESSMENT and PLAN: Post permcath insertion Plan: Patient is admitted for removal of his permcath. I have discussed the risks options and benefits of the procedure with the patient. The patient understands the risks options and benefits and agrees to the procedure.
[2017-01-31] MEDS ORDERED: LIDOCAINE HCL 1% 20 ML VIAL ONE (09:33)
--- NOTE | 2017-01-31 10:07 | [facility] Post Operative Brief Note ---
Immediate Operative Summary Operative Date Jan 31, 2017. Pre-Operative Diagnosis Post permcath insertion, functioning kidneys Post-Operative Diagnosis Same Procedure(s) Performed Perm Cath Removal Surgeon Lina Debone Processing Supervisor Surgeon(s) None Estimated Blood Loss 0 Findings cuff and catheter removed Specimens a; Perm Cath Anesthesia Local Complication(s) None Disposition
--- NOTE | 2017-01-31 10:09 | Discharge Instructions ---
Discharge Instructions Date of Service Jan 31, 2017. Visit Reason for Visit: Acute Kidney Failure Discharge Discharge Diagnosis / Problem: Functioning kidneys Discharge Goals Goal(s): Therapeutic intervention Activity Recommendations Activity Limitations: resume your previous activity Shower/Bathe: tomorrow Anesthesia . Post Anesthesia Instructions: If you have had General Anesthesia or IV Sedation: * Do not drive today. * Resume driving when surgeon permits. * Do not make important decisions or sign legal documents today. * Call surgeon for: 1. Temperature elevations greater than 101 degrees F. 2. Uncontrollable pain. 3. Excessive bleeding. 4. Persistent nausea and vomiting. 5. Medication intolerance (nausea, vomiting or rash). * For nausea and vomiting use only clear liquids such as: tea, soda, bouillon until nausea subsides, then gradually increase diet as tolerated. * If you have any concerns or questions, call your surgeon's office. If physician is unavailable and it is an emergency, call 911 or go to the nearest emergency room. . Instructions / Follow-Up Instructions / Follow-Up Call [phone] with any questions or concerns. SPECIAL CARE INSTRUCTIONS: Medications: * Continue to take your medications as directed. If you have been given a prescription for Plavix, please fill it immediately and take as directed. Incision Care: * Your puncture site may have some bruising and minor swelling for about one week. * You will have a small dressing covering your puncture site. You may remove the dressing after 24 hours and shower. You may let the warm soapy water run over it, but be sure to dry the puncture site well and keep it dry. * DO NOT IMMERSE THE INCISION IN A TUB/POOL/etc. UNTIL HEALED. * Puncture sites should be kept covered with a band-aid until it begins to heal. Restrictions: * Depending on whether you leg or arm was punctured to access the arteries, you will be required to lay flat, hold your arm still, or both, for about 4 hours after the procedure to prevent bleeding. * Limit your activity for the first 48 hours. You may walk and go up and down steps. Avoid excessive bending or movement at the puncture site. Possible Complications: * Excessive Swelling - after blood flow is improved you may notice increased swelling in the lower legs. This is a normal response. This usually depends on the amount of blockages in the leg, how long they have been there prior to your procedure and how much blood flow was restored. Elevating your legs will help to improve this. Please notify our office ([phone] ) if the swelling does not go away after lying in bed overnight. * Infection/Drainage/Bleeding - Drainage or bleeding from the puncture site should be minimal. If you have excessive bleeding or drainage, call our office ([phone]) right away. * Pain - You may experience some mild pain or soreness at your puncture site. If your pain does not improve, please contact our office ([phone]). Call your doctor and seek emergent treatment if you develop: * Temperature above 101 degrees * Any fever or chills * Any redness or purulent drainage from the puncture site * Any new dusky/blue colored toes or feet with coolness or sharp or aching pain. SKIN IRRITATION: * You may experience some redness and/or swelling in the area where radiation was administered. If any skin irritation occurs, please contact your family physician. FOLLOW UP VISIT: Keep any scheduled doctor appointments. Diet Recommendations Recommended Home Diet: resume previous diet Procedures Procedures Performed: Perm Cath Removal Pending Studies Studies pending at discharge: no Medical Emergencies . Who to Call and When: Medical Emergencies: If at any time you feel your situation is an emergency, please call 911 immediately. . Non-Emergent Contact Non-Emergency issues call your: Surgeon . . "Provider Documentation" section prepared by Arnol Mills. .
[2017-01-31 10:12] VITALS: BP 167/74; TEMP 36.8; O2SAT 98
--- NOTE | 2017-01-31 10:33 | DIAGNOSTIC IMAGING REPORT ---
DATE OF PROCEDURE: 01/31/2017 PREOPERATIVE DIAGNOSIS: Functioning kidneys. POSTOPERATIVE DIAGNOSIS: Same. PROCEDURE: Removal of PermCath. SURGEON: Dr. Mills. ANESTHETIC: Local. PROCEDURE INDICATIONS: The patient is a 81-year-old gentleman who was in acute renal failure and had a PermCath placed for dialysis. No longer needs PermCath. Removal was recommended. He understood the risks, options and benefits and agreed to have this procedure. DESCRIPTION OF PROCEDURE: The patient was taken to the angio suite and placed in supine position. After the catheter and chest wall were prepped and draped in a sterile manner, local anesthetic was administered. Using blunt dissection, the cuff was freed up from the surrounding tissue. Once this was completely freed up, it slid out easily. Pressure was then applied. Adequate hemostasis was obtained. Once adequate hemostasis was noted, the wound was then dressed in a sterile manner. The patient left the angio suite in good condition and tolerated the procedure well.
[2017-01-31 10:42] VITALS: BP 173/74; TEMP 36.8; O2SAT 97
== END 2017-01-31 10:56 | disposition home or self-care (01) ==
LOC: C.ACU 07:52
PROVIDERS: ATTEND Surgery Vascular Surgery
DX: N17.9 Acute kidney failure, unspecified (principal); J45.909 Unspecified asthma, uncomplicated; I10 Essential (primary) hypertension; M19.90 Unspecified osteoarthritis, unspecified site

== ENCOUNTER → 2017-02-21 | Outpatient (CLI) | payer OTHER ==
[2017-02-21 11:25] LABS: BASO % 0.2 %; BASO ABS # 0.01 K/uL (0-0.2); COMPLETE YES; HEMATOCRIT 30.3 % (42-52); IG% 0.7 %; LYMPH % 29.5 %; LYMPH ABS # 1.76 K/uL (1.2-3.4); MEAN CELL VOLUME 92.7 fL (80-100); MEAN CORPUSCULAR HEMOGLOBIN 31.2 pg (25-34); MEAN CORPUSCULAR HGB CONC 33.7 g/dl (32-36); MEAN PLATELET VOLUME 8.8 fL (7.4-10.4); MONO % 8.6 %; PLATELET COUNT 222 K/uL (130-400); RED BLOOD COUNT 3.27 M/uL (4.7-6.1); WHITE BLOOD COUNT 5.96 K/uL (4.8-10.8)
[2017-02-21 12:24] LABS: BLOOD UREA NITROGEN 27 mg/dl (7-18); BUN/CREATININE RATIO 24.9 (10-20); CARBON DIOXIDE 24 mmol/L (21-32); CHLORIDE 110 mmol/L (98-107); GLUCOSE 131 mg/dl (70-99); POTASSIUM 4.2 mmol/L (3.5-5.1); SODIUM 142 mmol/L (136-145)
[2017-02-21 12:38] LABS: THYROID STIMULATING HORMONE 0.851 uIu/ml (0.300-4.500)
--- NOTE | 2017-03-01 08:34 | CODING QUERY MEDICAL NECESSITY ---
CQSUPPORTING DIAGNOSIS NEEDED A supporting diagnosis is required for the test/procedure performed on this patient in order for us to be reimbursed by the patient's insurance. Please provide a supporting diagnosis for the following test/procedure listed below next to the test name along with your signature. *If there is no additional diagnosis for this patient that would support the following test/procedure please document that below next to the test/procedure. Test(s)/Procedure(s) that require a supporting diagnosis: CELINA 02/21/17 VITAMIN B12 TEST Provider Signature: Date: Thank you Maggy Dotson Health Information Management Once completed, please kindly fax back to [phone] For questions please call [phone]
== END | disposition home or self-care (01) ==
LOC: C.LABBC 08:51
PROVIDERS: ATTEND Urology
DX: I10 Essential (primary) hypertension (principal); E55.9 Vitamin D deficiency, unspecified; E03.9 Hypothyroidism, unspecified; N40.0 Benign prostatic hyperplasia without lower urinary tract symptoms; D64.9 Anemia, unspecified

== ENCOUNTER → 2017-03-23 | Outpatient (CLI) | payer OTHER ==
[2017-03-23 11:08] LABS: BASO % 0.6 %; BASO ABS # 0.04 K/uL (0-0.2); COMPLETE YES; EOS % 3.9 %; HEMATOCRIT 35.9 % (42-52); IG% 0.4 %; LYMPH % 29.2 %; LYMPH ABS # 2.09 K/uL (1.2-3.4); MEAN CELL VOLUME 91.8 fL (80-100); MEAN CORPUSCULAR HEMOGLOBIN 29.9 pg (25-34); MEAN CORPUSCULAR HGB CONC 32.6 g/dl (32-36); MEAN PLATELET VOLUME 8.8 fL (7.4-10.4); MONO % 10.9 %; PLATELET COUNT 243 K/uL (130-400); RED BLOOD COUNT 3.91 M/uL (4.7-6.1); WHITE BLOOD COUNT 7.15 K/uL (4.8-10.8)
== END | disposition home or self-care (01) ==
LOC: C.LABBC 08:33
PROVIDERS: ATTEND Internal Medicine Geriatric Medicine
DX: Z00.00 Encounter for general adult medical examination without abnormal findings (principal); D64.9 Anemia, unspecified

== ENCOUNTER → 2017-05-05 | Outpatient (CLI) | payer OTHER ==
--- NOTE | 2017-05-05 15:20 | DIAGNOSTIC IMAGING REPORT ---
CHEST 2 VIEWS ROUTINE CLINICAL HISTORY: R05 Productive cough cough COMPARISON STUDY: 12/21/2016 FINDINGS: Minimal parenchymal infiltrate left base. Fixed hiatal hernia. Minimal parenchymal infiltrate versus atelectasis right base. Mid and upper lungs are considered clear. IMPRESSION: 1. Fixed hiatal hernia. 2. Small bibasilar parenchymal infiltrative/atelectatic change The above report was generated using voice recognition software. It may contain grammatical, syntax or spelling errors. Electronically signed by: Josh Ro M.D. 05/05/2017 3:18 PM Dictated Date/Time: 05/05/2017 3:17 PM
== END | disposition home or self-care (01) ==
LOC: C.RADBC 14:48
PROVIDERS: ATTEND Physician Assistant
DX: J98.11 Atelectasis (principal); R05 Cough; K44.9 Diaphragmatic hernia without obstruction or gangrene

== ENCOUNTER → 2017-06-20 | Outpatient (CLI) | payer OTHER ==
--- NOTE | 2017-06-20 15:46 | DIAGNOSTIC IMAGING REPORT ---
CHEST 2 VIEWS ROUTINE CLINICAL HISTORY: R05 Productive cough dyspnea COMPARISON STUDY: 05/05/2017 FINDINGS: Moderate cardiomegaly. Fixed lateral hernia. Chronic bibasilar interstitial change. Mid and upper lungs are considered clear. IMPRESSION: Chronic change. No acute process. The above report was generated using voice recognition software. It may contain grammatical, syntax or spelling errors. Electronically signed by: Josh Ro M.D. 06/20/2017 3:44 PM Dictated Date/Time: 06/20/2017 3:44 PM
== END | disposition home or self-care (01) ==
LOC: C.RADBC 14:42
PROVIDERS: ATTEND Physician Assistant
DX: R05 Cough (principal)

== ENCOUNTER 2017-07-29 09:05 | Inpatient (IN) | payer OTHER ==
[2017-07-29] VITALS (11 sets, daily range): BP systolic 135–184; BP diastolic 71–97; PULSE 90–102; TEMP 36.5–37.3; O2SAT 94–99; Ht 177.8 cm; Wt 101.4 kg
[~2017-07-29] VITALS: Ht 177.8 cm; Wt 101.4 kg
[2017-07-29] MEDS ORDERED: NITROGLYCERIN OINT 2% 1GM PACKET EXT ONE (09:30)
--- NOTE | 2017-07-29 09:43 | DIAGNOSTIC IMAGING REPORT ---
CHEST ONE VIEW PORTABLE CLINICAL HISTORY: Fever, sepsis COMPARISON STUDY: 06/20/2017 FINDINGS: The heart is enlarged. There is a large hiatal hernia. There is no failure. There is no focal pulmonary consolidation. There is minor left basilar atelectasis/scarring unchanged the prior study.[ IMPRESSION: No active disease in the chest. Electronically signed by: Theodore Garcia M.D. 07/29/2017 9:41 AM Dictated Date/Time: 07/29/2017 9:41 AM
[2017-07-29 09:50] LABS: BASO % 0.2 %; BASO ABS # 0.02 K/uL (0-0.2); COMPLETE YES; HEMATOCRIT 41.2 % (42-52); IG% 0.4 %; LYMPH ABS # 1.17 K/uL (1.2-3.4); MEAN CELL VOLUME 88.8 fL (80-100); MEAN CORPUSCULAR HEMOGLOBIN 30.2 pg (25-34); MEAN PLATELET VOLUME 9.3 fL (7.4-10.4); MONO % 9.4 %; PLATELET COUNT 217 K/uL (130-400); RED BLOOD COUNT 4.64 M/uL (4.7-6.1); WHITE BLOOD COUNT 8.33 K/uL (4.8-10.8)
[2017-07-29 09:53] LABS: BUN/CREATININE RATIO 22.6 (10-20); CREATININE 1.27 mg/dl (0.60-1.40)
[2017-07-29 09:58] LABS: PROTHROMBIN TIME (PATIENT) 10.4 SECONDS (9.0-12.0)
[2017-07-29 10:03] LABS: CKMB/CK RATIO 4.4 (0-3.0)
[2017-07-29] MEDS ORDERED: ZOLPIDEM TARTRATE 5 MG TAB PO PRN (11:30)
[2017-07-29] MEDS ORDERED: ONDANSETRON INJ 2 MG/ML 2 ML VIAL IV PRN (11:30)
[2017-07-29] MEDS ORDERED: ALUMINUM/MAGNESIUM/SIMETH (MAALOX MAX) 30 ML UDC PO PRN (11:30)
[2017-07-29] MEDS ORDERED: ALBUTEROL HFA 8 GM INHALER INH PRN (11:30)
[2017-07-29] MEDS ORDERED: MAGNESIUM HYDROXIDE SUSP 30 ML UDC PO PRN (11:30)
[2017-07-29] MEDS ORDERED: POLYETHYLENE (MIRALAX) 17 GM PACK PO PRN (11:30)
[2017-07-29] MEDS ORDERED: NITROGLYCERIN 0.4 MG SL PER TAB CHARGE SL PRN (11:30)
[2017-07-29] MEDS ORDERED: MoRPHine SULFATE 2 MG/ML CARP IV PRN (11:30)
[2017-07-29] MEDS ORDERED: ACETAMINOPHEN 325 MG TAB PO PRN (11:30)
--- NOTE | 2017-07-29 11:31 | EMERGENCY ROOM VISIT NOTE ---
History Report prepared by Yayo: Cornelia Payton Under the Supervision of: Martín DiazO. First contact with patient: 09:15 Stated Complaint: CHEST PAIN History of Present Illness The patient is a 81 year old male who presents to the Emergency Room with complaints of persistent chest pain that began one week ago. The patient states that he was on his way to the gym, but was unable to exercise due to his pain. He went to see his doctor, who suggested he come to Emergency Department for further evaluation. The patient describes his chest pain as "someone pushing on it". He notes that it is less painful in the morning. The patient states that his pain worsens with exertion and cold weather. The patient has been having some trouble breathing and indigestion. He notes a history of pneumonia. The patient denies a history of strokes. Source of History: patient Onset: one week ago Position: chest Symptom Intensity: "pushing on it" Quality: other (chest pain) Timing: other (persistent) Modifying Factors (Worsening): exertion Review of Systems See HPI for pertinent positives & negatives. A total of 10 systems reviewed and were otherwise negative. 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 Social History Smoking Status: Never Smoker Alcohol Use: occasionally Drug Use: none Housing Status: lives with significant other Occupation Status: retired Current/Historical Medications Scheduled Alfuzosin HCl (Uroxatral), 10 MG PO HS Amlodipine Besylate (Amlodipine Besylate), 10 MG PO QAM Aspirin (Aspirin Ec), 81 MG PO DAILY B-Complex W/ C & Folic Acid (Renal), 1 CAP PO QAM Calcium Carbonate-Vitamin D W/ (Caltrate 600 Plus), 1 TAB PO BID Cholecalciferol (Vitamin D 1000 Unit), 1,000 INTER.UNIT PO DAILY Doxycycline Hyclate (Doxycycline Hyclate), 100 MG PO BID Duloxetine HCl (Duloxetine HCl), 60 MG PO BID Dutasteride (Dutasteride), 0.5 MG PO DAILY Finasteride (Finasteride), 5 MG PO QAM Levothyroxine Sodium (Levothyroxine Sodium), 100 MCG PO DAILY Metoprolol Succinate (Metoprolol Succinate ER), 75 MG PO DAILY Mometasone Furoate-Formoterol (Dulera 100/5 Mcg), 2 PUFFS INH Q12 Omeprazole (Prilosec), 40 MG PO DAILY Polyethylene Glycol 3350 (Miralax), 1 TBS PO HS Ranitidine (Zantac), 150 MG PO HS Simvastatin (Zocor), 20 MG PO QPM Tadalafil (Cialis), 5 MG PO DAILY Trospium Chloride (Trospium Chloride Er), 60 MG PO DAILY Scheduled PRN Albuterol Hfa (Ventolin Hfa), 2 PUFF INH Q4 PRN for Shortness of Breath Capsaicin (Zostrix Arthritis Pain Re), 1 APPLN TOP QID PRN for Pain Desloratadine (Clarinex), 5 MG PO DAILY PRN for ALLERGIES Allergies Coded Allergies: Erythromycin (Verified Allergy, Intermediate, THROAT BEGAN TO SWELL SHUT, 07/29/17) PT Atorvastatin (Verified Adverse Reaction, Intermediate, MYALGIAS, 07/29/17) PT/ALLSCRIPTS Lisinopril (Verified Adverse Reaction, Intermediate, COUGH, 07/29/17) Physical Exam Vital Signs Date Time Temp Pulse Resp B/P (MAP) Pulse Ox O2 Delivery O2 Flow Rate FiO2 07/29/17 11:11 36.8 104 19 130/83 95 Room Air 07/29/17 10:55 95 Room Air 07/29/17 10:38 95 22 141/66 95 Room Air 07/29/17 09:48 36.8 88 20 122/85 98 Room Air 07/29/17 09:24 98 Room Air 07/29/17 09:19 36.8 106 22 134/65 94 Room Air 07/29/17 09:18 105 Physical Exam CONSTITUTIONAL/VITAL SIGNS: Reviewed / noted above. GENERAL: Non-toxic in appearance. INTEGUMENTARY: Warm, dry, and [place]. HEAD: Normocephalic. EYES: without scleral icterus or trauma. ENT/OROPHARYNX: clear and moist. LYMPHADENOPATHY/NECK: Is supple without lymphadenopathy or meningismus. RESPIRATORY: Lungs clear and equal. CARDIOVASCULAR: Regular rate and rhythm. GI/ABDOMEN: Soft and nontender. No organomegaly or pulsatile mass. No rebound or guarding. Normal bowel sounds. EXTREMITIES: Warm and well perfused. BACK: No CVA tenderness. NEUROLOGICAL: Intact without focal deficits. PSYCHIATRIC: normal affect. MUSCULOSKELETAL: Normally developed with good muscle tone. Medical Decision & Procedures ER Provider Diagnostic Interpretation: Radiology results as stated below per my review and radiologist interpretation: CHEST ONE VIEW PORTABLE CLINICAL HISTORY: Fever, sepsis COMPARISON STUDY: 06/20/2017 FINDINGS: The heart is enlarged. There is a large hiatal hernia. There is no failure. There is no focal pulmonary consolidation. There is minor left basilar atelectasis/scarring unchanged the prior study.[ IMPRESSION: No active disease in the chest. Electronically signed by: Theodore Garcia M.D. 07/29/2017 9:41 AM Laboratory Results 07/29/17 09:14 Red Blood Count 4.64, Mean Corpuscular Volume 88.8, Mean Corpuscular Hemoglobin 30.2, Mean Corpuscular Hemoglobin Concent 34.0, Mean Platelet Volume 9.3, Neutrophils (%) (Auto) 74.0, Lymphocytes (%) (Auto) 14.0, Monocytes (%) (Auto) 9.4, Eosinophils (%) (Auto) 2.0, Basophils (%) (Auto) 0.2, Neutrophils # (Auto) 6.16, Lymphocytes # (Auto) 1.17, Monocytes # (Auto) 0.78, Eosinophils # (Auto) 0.17, Basophils # (Auto) 0.02 07/29/17 09:14 Test 07/29/17 09:14 White Blood Count 8.33 K/uL (4.8-10.8) Red Blood Count 4.64 M/uL (4.7-6.1) Hemoglobin 14.0 g/dL (14.0-18.0) Hematocrit 41.2 % (42-52) Mean Corpuscular Volume 88.8 fL (80-100) Mean Corpuscular Hemoglobin 30.2 pg (25-34) Mean Corpuscular Hemoglobin Concent 34.0 g/dl (32-36) Platelet Count 217 K/uL (130-400) Mean Platelet Volume 9.3 fL (7.4-10.4) Neutrophils (%) (Auto) 74.0 % Lymphocytes (%) (Auto) 14.0 % Monocytes (%) (Auto) 9.4 % Eosinophils (%) (Auto) 2.0 % Basophils (%) (Auto) 0.2 % Neutrophils # (Auto) 6.16 K/uL (1.4-6.5) Lymphocytes # (Auto) 1.17 K/uL (1.2-3.4) Monocytes # (Auto) 0.78 K/uL (0.11-0.59) Eosinophils # (Auto) 0.17 K/uL (0-0.5) Basophils # (Auto) 0.02 K/uL (0-0.2) RDW Standard Deviation 49.1 fL (36.4-46.3) RDW Coefficient of Variation 15.1 % (11.5-14.5) Immature Granulocyte % (Auto) 0.4 % Immature Granulocyte # (Auto) 0.03 K/uL (0.00-0.02) Prothrombin Time 10.4 SECONDS (9.0-12.0) Prothromb Time International Ratio 1.0 (0.9-1.1) Activated Partial Thromboplast Time 25.1 SECONDS (21.0-31.0) Partial Thromboplastin Ratio 1.0 Anion Gap 7.0 mmol/L (3-11) Est Creatinine Clear Calc Drug Dose 56.3 ml/min Estimated GFR () 61.9 Estimated GFR (Non- 53.4 BUN/Creatinine Ratio 22.6 (10-20) Calcium Level 9.0 mg/dl (8.5-10.1) Total Bilirubin 0.8 mg/dl (0.2-1) Direct Bilirubin 0.2 mg/dl (0-0.2) Aspartate Amino Transf (AST/SGOT) 28 U/L (15-37) Alanine Aminotransferase (ALT/SGPT) 26 U/L (12-78) Alkaline Phosphatase 98 U/L (45-117) Total Creatine Kinase 310 U/L (39-308) Creatine Kinase MB 13.6 ng/ml (0.5-3.6) Creatine Kinase MB Ratio 4.4 (0-3.0) Troponin I 3.070 ng/ml (0-0.045) Total Protein 7.3 gm/dl (6.4-8.2) Albumin 3.7 gm/dl (3.4-5.0) Lipase 239 U/L (73-393) Laboratory results as stated above per my review. Medications Administered Medications (Trade) Dose Ordered Sig/Sheree Route Start Time Stop Time Status Last Admin Dose Admin Nitroglycerin (Nitroglycerin 2% Oint) 1 inch NOW ONCE EXT 07/29/17 09:30 07/29/17 09:31 DC 07/29/17 09:32 1 INCH ECG Indication: chest pain Rate (beats per minute): 105 Rhythm: sinus tachycardia Findings: no acute ischemic change, no ectopy Comparison ECG Date: no prior available ED Course 927: Previous medical records were reviewed. The patient was evaluated in room B09. A complete history and physical examination was performed. 929: Ordered Nitroglycerin 1in EXT. Medical Decision the differential was considered includes acute myocardial infarction, acute coronary syndrome, myocarditis, pericarditis, pericardial effusions /tamponade, esophageal perforation, thoracic aortic dissection, pulmonary embolism, pneumonia, pneumothorax, pancreatitis, shingles, acute cholecystitis, perforated abdominal viscus. This is a 81-year-old male who presents to the ED with a chief complaint of chest pressure for the past week. It seems to be worsened with exertion. He reports a little shortness of breath as well. The patient had bad indigestion this morning and a lot of burping. The patient reports that he was seen by Dr. Fan's office. An EKG that showed some inferior lateral ST depressions that seemed to be slightly improved on our EKG here. He received nitroglycerin sublingual 2 and aspirin by mouth by EMS. He was given nitro paste here. The patient reports being pain-free. His troponin was elevated at 3.07. CK and CK MB were also slightly elevated. Chest x-ray did not show acute disease per CBC was unremarkable. The patient was told the results. He continues to remain pain free. I spoke with the hospitalist as well as the starcher and tenter range feeder Dr. Lara for further evaluation of the patient. Medication Reconcilliation Current Medication List: was personally reviewed by me Consults Time Called: 1051 Consulting Physician: Dr. [place], [facility] [place] Call: 1053 Discussed the patient's case. Dr. Blackwood wants me to consult with cardiology. Additional Consults: Time Called: 1054 Consulted Physician: Dr. Reva Pierson, cardiology Returned Call: 1054 Additional Comments: Discussed the patient's case. The patient will be evaluated for further treatment and disposition. Impression Primary Impression: Non-ST elevation CO (NSTEMI) Additional Impression: Unstable angina Scribe Attestation The scribe's documentation has been prepared under my direction and personally reviewed by me in its entirety. I confirm that the note above accurately reflects all work, treatment, procedures, and medical decision making performed by me. Departure Information Dispostion Being Evaluated By Hospitalist Gio Lane M.D. (PCP) Problem Qualifiers
[2017-07-29] MEDS ORDERED: OPTIRAY 320 IV PRN (11:45)
--- NOTE | 2017-07-29 11:47 | History and Physical ---
History & Physical Date of Service Jul 29, 2017. History & Physical likely NSTEMI, will rule out PE, [id number]
[2017-07-29 12:15] LABS: MAGNESIUM 2.2 mg/dl (1.8-2.4); PHOSPHORUS 2.1 mg/dl (2.5-4.9)
[2017-07-29] MEDS: HEPARIN SOD 5000 UNIT/0.5 ML CARP ONE ×2 (12:16→12:19)
[2017-07-29] MEDS ORDERED: HEPARIN 25000 UNIT/500 ML D5W ONE (12:17)
[2017-07-29] MEDS ORDERED: HEPARIN SOD (PORCINE) 1000 UNIT/ML 10 ML VIAL ONE ×2 (12:24→14:30)
[2017-07-29] MEDS ORDERED: HEPARIN 25,000 UNIT/500ML D5W 500 ML IV PRN (12:45)
--- NOTE | 2017-07-29 12:56 | HISTORY & PHYSICAL EXAMINATION ---
DATE OF ADMISSION: 07/29/2017 This is a level 3 inpatient admission, 35 minutes. CHIEF COMPLAINT: Chest pain worse when exertional. HISTORY OF PRESENT ILLNESS: The patient is a 81-year-old white male with a significant past medical history of chest pain, DJD, elevated cardiac enzymes, BPH, hypertension, osteoarthritis, thrombocytopenia, trigeminal neuralgia, acute kidney failure, coming to the hospital Emergency Department because of the above complaint. The patient was sent to Emergency Room from PCP's office because of the chest pain. He did report to have chest pain going on for several weeks, which is getting worse when exertional. It will be about 5-6/10, associated with mild shortness of breath. No radiation. He feels somebody stepped on it. Report to have some indigestion as well. He got 2 nitros and was chest pain free. Currently, he got nitro ointment in the anterior chest wall. Therefore, he is chest pain free. When I interviewed with him, he is awake, alert, and orientated, conversational, follows all commands. Confirmed me the above information. Denied cough, sputum, or hemoptysis. Denied nausea, vomiting, abdominal pain, or diarrhea, he do need MiraLax for his constipation every day. Denied dysuria, urgency, or frequencies. Denied facial droop, slurry speeches, or local weakness. Denied skin rashes. Denied anxiety or depression. ALLERGIES: ALLERGY TO ATORVASTATIN, ERYTHROMYCIN AND LISINOPRIL. PAST MEDICAL HISTORY: Like I mentioned in the above, include asthma, BPH, hypertension, GERD. He has acute kidney injury, has anaplasmosis, suspicious co-infection with Lyme disease, history of elevated troponin, abnormal liver enzymes, history of left-sided facial droop, currently has no droop, hypothyroidism, peripheral neuropathy, COPD, depression. FAMILY HISTORY: Unknown. SOCIAL HISTORY: Denied tobacco abuse disorder, denied alcohol abuse disorder, denied illicit drug abuse. MEDICATIONS: Taking at home include alfuzosin 10 mg p.o. at bedtime, aspirin 325 mg p.o. daily, Caltrate 600 plus one tab p.o. b.i.d., calcium, vitamin D 1000 international units p.o. daily, duloxetine 60 mg p.o. daily, dutasteride 0.5 mg p.o. daily, gabapentin 800 mg p.o. t.i.d., HCTZ 12.5 mg p.o. daily, levothyroxine 100 mcg p.o. daily, losartan 100 mg p.o. daily, metoprolol 50 mg p.o. daily, Dulera 100/5 mcg 2 puffs inhaled q. 12, omeprazole 40 mg p.o. daily, MiraLax 1 tab p.o. bedtime, Zantac 100 mg p.o. at bedtime, Zocor 20 mg p.o. q.p.m., Cialis 5 mg p.o. daily, trospium 60 mg p.o. daily. Medicine use as needed include Ventolin 2 puffs inhaled q. 4 hours p.r.n. for shortness of breath, capsaicin 1 topical application q.i.d. p.r.n. for the pain, Clarinex 5 mg p.o. daily p.r.n. for allergy. PHYSICAL EXAMINATION: VITAL SIGNS: Temperature is 36.8, pulse 104, respiration rate 18, blood pressure 130/83, pulse ox was 95% on room air. GENERAL: The patient is a white male, mild obesity, pleasant, conversational, follows all commands. HEAD: Normocephalic. EYES: Pupils equal, round, responds to light. No acute distress. MOUTH: Conjunctivae low injection. Sclerae no icterus. Moist mucous membranes. No lymphadenopathy. LUNGS: Decreased breathing sounds. There were no wheezing, rhonchi or crackles. HEART: Regular rhythm, S1 and S2, has no murmur, no gallop, no rubs. ABDOMEN: Soft, nontender. Bowel sound was positive. No guarding, no rebounds, normal bowel sounds. LOWER EXTREMITIES: Warm and well perfused. Trace edema. NEUROLOGICAL EVALUATION: Cranial nerves II-XII was intact. There was no local deficits. PSYCHIATIC EVALUATION: Normal affect. MUSCULOSKELETAL SYSTEMS: Normal with good muscle tone. No limited range of motion. LABORATORY STUDIES: WBC 8, hemoglobin 14, platelet 217. BUN 29, creatinine 1.27. Blood glucose 122. Sodium 140, potassium 4.0, chloride 109, bicarbonate 24. IMAGING STUDIES: Chest x-ray, no acute disease in the chest. EKG shows possible V1, ST minimal elevation and lead 3, 4 and 5, ST depression. This was not seen in previous EKG. ASSESSMENT AND PLAN: A 81-year-old white male with the conditions below: 1. Chest pain with elevated troponin at 3.07 and new EKG changes lateral lead ST depression. Possible non-ST elevation myocardial infarction. 2. The patient has mild difficulty breathing, mild obesity, differential diagnosis include acute pulmonary embolism. 3. Chronic kidney disease. BUN 29, creatinine 1.27, GFR 56. This is in his baseline. 4. Mild tachycardia. 5. Mild elevated total CK. 6. History of acute kidney injury secondary to acute tubular necrosis. 7. History of anaplasmosis and co-infection with Lyme disease. 8. History of thrombocytopenia, coagulopathy. 9. Hypertension, hypothyroidism, peripheral neuropathy, gastroesophageal reflux disease, chronic obstructive pulmonary disease, benign prostatic hyperplasia, and depression. PLAN: The patient has chest pain, exertional; obvious troponin elevation, associated with EKG changes, possible ischemic changes. I feel patient more than likely has non-STEMI. I have notified ED physician to talk to principal technical writer, and cardiology evaluation patient for now, I will continue to communicate with principal technical writer. The patient got aspirin and will continue beta vasiliy and aspirin. We will talk to cardiology to start heparin drip or not. We will admit the patient in the hospital. Differential diagnosis includes acute PE. I will give gentle IV fluid and check a chest CT with contrast to rule out PE. For admission, complete bed rest. Cardiac enzyme troponin x2 sets more. Echocardiogram, we are going to check. Follow up renal functions. For past medical conditions include hypertension, BPH, GERD, hypothyroidism, peripheral neuropathy, we will continue home medications, next we will check TSH. Discussed with patient about the care plan. I answered all the questions. Discussed with patient about code status. He wanted to be full code, but he report if he is in vegetation condition and no hope of the quality of life, he will not want to have machine support to prolong his life. Addendum, Talked to principal technical writer, pt needs heparin drip and LHC. BK
--- NOTE | 2017-07-29 13:12 | CARDIOLOGY CONSULTATION ---
DATE OF CONSULTATION: 07/29/2017 TIME: 12:15 p.m. CONSULTING PHYSICIAN: Dr. Thao and Dr. Blackwood. REASON FOR CONSULTATION: Non-ST elevation myocardial infarction. PRIMARY BRAKE LINING FINISHER: Dr. Cormier. HISTORY OF PRESENT ILLNESS: Mr. Gill is a very pleasant 81-year-old gentleman with a history significant for hypertension, dyslipidemia and a lengthy hospitalization in December of 2016, where he was diagnosed with anaplasmosis and acute kidney injury, requiring temporary hemodialysis. During that hospitalization, he was found to have a left-sided facial droop, which was apparently chronic and had troponin levels that were elevated as high as 18.5. In that setting, an echocardiogram demonstrated hyperdynamic LV systolic function with normal wall motion and only mild LVH. For the past few weeks, he has been experiencing exertional chest discomfort described as a pressure across his chest, but mostly substernal involving the left side of his chest as well. There was no radiation of the pain, but there is associated shortness of breath. There was no diaphoresis. He states that he has not been telling his symptoms to anyone else until this morning. When he woke up shortly after 04:00 a.m., at approximately 5:00 a.m., he took his garbage out. With just a small amount of walking, he became very fatigued and had chest discomfort. He went and sat down and had some coffee and his symptoms improved, but did not resolve. Symptoms persisted. He was driving into town to go to the gym, but decided to stop Dr. Angel's office to have some papers filled out. He then mentioned his chest discomfort, at which point, an ambulance was called for him to come to the Emergency Department. An ECG was done at Dr. Angel's office, which reported as inferolateral ST/T wave abnormalities. When he came to the Emergency Department, he continued to have pain. He was given nitroglycerin sublingual as well as topical nitroglycerin. His symptoms then completely resolved. He states that typically symptoms would resolve within 30-60 minutes of rest, but today it was much longer. He is currently chest pain free. He denies syncope, near syncope, palpitations, orthopnea, PND, edema, melena, hematochezia, hematuria, or other bleeding. He has not had any recent fevers or chills. His last meal was cereal at 05:30 a.m. He reports that he did have syncope in December of 2016, but then had his antihypertensive regimen reduced, at which point he has not had any further syncope or near syncopal symptoms. Currently, he is asymptomatic. REVIEW OF SYSTEMS: As above and otherwise unremarkable/negative. PAST MEDICAL HISTORY: 1. Elevated troponins in December of 2016, when he apparently had anaplasmosis and was acutely ill with multisystem involvement including acute kidney injury. 2. Acute kidney injury requiring dialysis for 6 or 7 episodes, but none since December of 2016. He follows with Dr. Tatum. 3. Hypertension. 4. Dyslipidemia. 5. Cerebral atherosclerosis. 6. Carotid artery stenosis on the right, asymptomatic. 7. BPH. 8. Asthma. 9. Anemia. 10. Peripheral neuropathy. 11. Lumbar radiculopathy. 12. Hypothyroidism. 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 14. Post-herpetic trigeminal neuralgia. 15. Vitamin D deficiency. 16. Lyme disease history. HOME MEDICATIONS: Include: 1. Aspirin 81 mg daily. 2. Simvastatin 20 mg daily. 3. Omeprazole 20 mg daily. 4. Losartan 50 mg daily. 5. Metoprolol succinate 75 mg daily. 6. Levothyroxine 100 mcg daily. 7. Gabapentin 300 mg t.i.d. Please see full H&P for remainder of list. ALLERGIES: 1. LIPITOR CAUSES MYALGIAS. 2. ERYTHROMYCIN. 3. LISINOPRIL. SOCIAL HISTORY: Denies tobacco or drug abuse. Occasional alcohol. 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 Three children. His son lives with him, [place], temporarily. His daughter, Renetta Crystal, is his power of health care attorney, he states. He would like her to make medical decisions if he is unable to do so. Her number is [phone]. He states that he wishes to be a full code unless there is no meaningful recovery known. FAMILY HISTORY: No known premature CAD. PHYSICAL EXAMINATION: VITAL SIGNS: Temperature 36.8 degrees, heart rate 104 beats per minute, respiratory rate 19, blood pressure 130/83 mmHg, and oxygen saturation 95% on room air. Weight 101.4 kg. GENERAL: No acute distress. He is alert and oriented. HEENT: Anicteric sclerae. NECK: No appreciable JVD. No bruits. Normal carotid upstrokes bilaterally. CARDIAC EXAMINATION: PMI was nondisplaced. There was no ventricular heave. Regular. Normal S1 and S2. A 1/6 early peaking systolic ejection murmur best heard at the right upper sternal border. No rubs or gallops. LUNGS: Clear to auscultation bilaterally without wheezes, rales or rhonchi. ABDOMEN: Soft, nontender, and nondistended. Normoactive bowel sounds. No bruits noted. EXTREMITIES: 2+ radial pulses bilaterally. Te's test okay. 2+ femoral pulses bilaterally without bruit. 2+ dorsalis pedis pulses bilaterally. No cyanosis or edema. No palpable cords. PSYCHIATRIC: Affect appears appropriate. CHEST: Nontender to palpation. ECG personally reviewed. ECG demonstrates sinus tachycardia at 105 beats per minute. Nonspecific ST abnormality. Cannot rule out inferior infarct. Most recent complete echocardiogram was done on 12/21/2016 reported hyperdynamic LV systolic function with an EF of greater than 70%. Type 1 diastolic dysfunction. No significant valvular abnormalities. LABORATORY DATA: Sodium 140, potassium 4, BUN 29, and creatinine 1.27. Magnesium is pending. AST 28 and ALT 26. Troponin 3.07 and albumin 3.7. Lipase 239. White blood cell count 8.3, hemoglobin 14, and platelets 217. INR is 1. Chest x-ray personally reviewed. Chest x-ray is without evidence of infiltrate or suggestion of CHF. Radiology has interpreted the chest x-ray as no active disease in the chest. ASSESSMENT AND PLAN: 1. Non-ST elevation myocardial infarction: He is presenting with worsening exertional angina and this morning's episode did not resolve with rest, but lasted for a few hours, resolving finally with nitroglycerin. He is currently chest pain free. Recommend continuation of aspirin. Recommend heparin drip per protocol. Recommend high intensity statin therapy and continuation of beta vasiliy. Recommended cardiac catheterization. Risks and benefits were discussed with him in detail. He is agreeable to undergo diagnostic angiography and PCI, if deemed appropriate, at this facility. He was made aware that CT surgery is not available at [facility]. Echocardiogram is pending. 2. Unstable angina: He presents with unstable angina/acute coronary syndrome. Plan as above. Given his history of kidney injury acutely in December of 2016, recommend normal saline at 125 mL per hour. Remain n.p.o. Bed rest recommended. 3. Hypertension: Blood pressure acceptable. Continue current regimen. 4. Dyslipidemia: Recommend high intensity statin therapy. He did not tolerate Lipitor in the past. Recommend Crestor 40 mg daily. DISPOSITION: Coronary angiography will be performed when the lab is available. This is not urgent if he is currently chest pain free. If he should have recurrent episodes or ST elevations, would recommend urgent cardiac catheterization. Keep n.p.o. The patient's care has been discussed with Dr. Blackwood of the hospitalist service. The patient's care has also discussed with Dr. Tatum, his food service substitute. Dr. Cormier, his primary psychic reader , was notified. He has asked that I do not notify his family/children and that he would do so. Highly complex medical issues. Thank for allowing me to participate in care of Mr. Gill. Sincerely, BK
[2017-07-29] MEDS ORDERED: HEPARIN SOD 5000 UNIT/0.5 ML CARP SQ SCH (14:00)
[2017-07-29] MEDS ORDERED: SODIUM CHLORIDE 0.9% 1000ML 1,000 ML IV SCH ×2 (14:00→16:25)
[2017-07-29] MEDS ORDERED: CAPSAICIN CR 0.075% 60 GM TUBE EXT PRN (14:00)
[2017-07-29] MEDS ORDERED: NITROGLYCERIN/D5W 100MCG/ML 20ML SYR ONE (14:30)
[2017-07-29] MEDS ORDERED: MIDAZOLAM HCL 1 MG/ML 2ML VIAL ONE (14:30)
[2017-07-29] MEDS ORDERED: FENTANYL CITRATE INJ 50 MCG/1 ML 2 ML VIAL ONE (14:30)
[2017-07-29] MEDS ORDERED: NiCARDipine HCL INJ 2.5 MG/ML 10 ML AMP ONE (14:30)
--- NOTE | 2017-07-29 15:11 | Procedure Note ---
Pre-Mod Sedation Assessment General Date of Moderate Sedation: Jul 29, 2017. Vital Signs: Vital Signs Past 12 Hours Date Time Temp Pulse Resp B/P (MAP) Pulse Ox O2 Delivery O2 Flow Rate FiO2 07/29/17 14:41 37.3 90 18 135/74 (94) 94 07/29/17 13:13 94 20 117/72 95 07/29/17 12:38 36.8 95 19 103/58 93 Room Air 07/29/17 11:11 36.8 104 19 130/83 95 Room Air 07/29/17 10:55 95 Room Air 07/29/17 10:38 95 22 141/66 95 Room Air 07/29/17 09:48 36.8 88 20 122/85 98 Room Air 07/29/17 09:24 98 Room Air 07/29/17 09:19 36.8 106 22 134/65 94 Room Air 07/29/17 09:18 105 Review Cardiovascular: regular rate, rhythm, + systolic murmur Abdomen: normal bowel sounds, non tender, soft Lungs: lungs clear Pre-Sedation Airway Assessment Oral Cavity: WNL Smoking Status: Never Smoker Procedure Planning Contraindications-for Mod Sed: None Yes Notes The planned sedation has been discussed with the patient and consent obtained. I have identified the patient, determined the appropriateness of sedation and have assessed the patient immediately prior to the procedure. All medicine(s) and interventions are by my order.
[2017-07-29] MEDS ORDERED: AVODART-ORDER AWAITING ACTION SCH (16:00)
--- NOTE | 2017-07-29 16:23 | Procedure Note ---
Post-Mod Sedation Assessment General Date of Moderate Sedation Jul 29, 2017. Vital Signs: Vital Signs Past 12 Hours Date Time Temp Pulse Resp B/P (MAP) Pulse Ox O2 Delivery O2 Flow Rate FiO2 07/29/17 16:00 80 16 155/85 (108) 98 Room Air 07/29/17 15:55 85 16 159/94 (115) 98 Room Air 07/29/17 15:45 85 16 149/86 (107) 98 Room Air 07/29/17 14:41 37.3 90 18 135/74 (94) 94 07/29/17 13:13 94 20 117/72 95 07/29/17 12:38 36.8 95 19 103/58 93 Room Air 07/29/17 11:11 36.8 104 19 130/83 95 Room Air 07/29/17 10:55 95 Room Air 07/29/17 10:38 95 22 141/66 95 Room Air 07/29/17 09:48 36.8 88 20 122/85 98 Room Air 07/29/17 09:24 98 Room Air 07/29/17 09:19 36.8 106 22 134/65 94 Room Air 07/29/17 09:18 105 Review - Discharge Criteria Vital Signs Stable: Yes Alert/Oriented/Conversant: Yes Returned to Baseline Mental St: Yes Nausea Absent/Minimal: Yes Pain/Discomfort/Absent/Minimal: Yes Normal/Baseline Respirations: Yes Active Bleeding?: No
--- NOTE | 2017-07-29 16:24 | Consultant Recommendations ---
Field Hockey And Lacrosse Coach Recommendations Date of Service Jul 29, 2017. Field Hockey And Lacrosse Coach Recommendations ACTIVITY RECOMMENDATIONS: Excess manipulation of the wrist should be avoided for the next 24-48 hours. * No lifting over 2 pounds (approximately a 1/2 gallon of milk) with the utilized arm for 24 hours. * No strenuous activity such as bowling or tennis for 3 days. * Keep the site of the procedure covered with a bandage for 24 hours. *You may shower the day after the procedure. Do not take a tub bath or submerge the puncture site in water for the next 3 days. *Do not operate any motorized equipment for 3 days. SPECIAL CARE INSTRUCTIONS: The site may be slightly bruised and sore following your procedure. Should any of the following occur, contact the Dr. who performed your procedure. 1. Redness/inflammation, swelling, chills, or fever, or colored drainage at procedure site within 3-7 days after your procedure. 2. Coldness, discoloration, ongoing numbness, severe pain, or swelling. Expect mild tingling of hand and tenderness at the puncture site for up to three days. If this persists beyond three days, or other symptoms develop, notify the Dr. who performed your procedure. BLEEDING: If the procedure site on your wrist begins to bleed, do not panic 1. Place 1 or 2 fingers firmly just slightly above the insertion site to stop the bleeding. You may be able to feel your pulse as you hold pressure. 2. Lift your finger after 5 minutes to see if the bleeding has stopped. 3. Once the bleeding has stopped, gently wipe the wrist area clean with a bandage. * If the bleeding from your wrist does not stop after 10 minutes, or if there is a large amount of bleeding or spurting, call 911 (do not drive yourself to the hospital). SKIN IRRITATION: * You may experience some redness and/or swelling in the area where radiation was administered. If any skin irritation occurs, please contact your family physician. FOLLOW UP VISIT: Keep any scheduled doctor appointments.
--- NOTE | 2017-07-29 16:42 | Cardiac Catheterization ---
Procedure Note Procedure Date Jul 29, 2017. Pre-Procedure Diagnosis Non STEMI AUC Score 9 Post-Procedure Diagnosis Severe CAD Procedure(s) Performed Coronary Angiography, Left Heart Cath Wall To Wall Carpet Installer Dr. Lara Fruit And Vegetable Packer(s) Glunt Estimated Blood Loss < 20 ml Medication(s) Fentanyl, Heparin, Nicardipine, Versed, Lidocaine 1% Summary of Findings Coronary angiography: 1. Left main coronary artery: There appears to be a very short left main coronary artery which does appear to give rise to LAD and circumflex but is very short in length. No significant CAD. 2. Left anterior descending: The LAD is mildly calcified throughout the proximal to midportion. Ostial LAD 80%. Proximal LAD 90% at the bifurcation site of first diagonal vessel which is a medium caliber vessel. The proximal to mid LAD is diffusely disease. Mid LAD 80%. Large caliber D2. Small caliber D3. 3. Circumflex: Large caliber dominant circumflex. Mid circumflex 30%. Very small caliber OM1. Large caliber OM2. Large caliber PL branch with proximal 50 % stenosis. Large caliber PDA with proximal 95% stenosis with KT 3 flow. 4. Right coronary artery: The RCA is small in non dominant. No angiographic evidence of significant CAD. Left heart catheterization: 1. Left ventriculography was not performed as echo was performed earlier today. 2. No significant aortic stenosis. Peak to peak gradient across the aortic valve was 0. 3. There is no significant intracavitary gradient noted. 4. Mildly elevated LVEDP; 15mmHg. Sedation start time: 3:12 p.m. Sedation end time: 1:45 p.m. Procedural details: 1. Coronary angiography was performed via the right radial artery without known complication. Impression: 1. Severe CAD involving the proximal to mid LAD and circumflex PDA. 2. Nonobstructive CAD involving PL and mid circumflex. 3. Dominant circumflex. 4. Mildly elevated LVEDP. 5. No aortic stenosis. Plan: 1. Images were reviewed with development editor, Dr. Joya. CT surgery evaluation was recommended for multivessel bypass surgery including the LAD and PDA. 2. High-intensity statin therapy. 3. Risk factor modification. 4. Dr. Vega (CT surgery) at [facility] [place] [facility] has accepted Mr. Gill in transfer. Hemodynamics Rest Ao: 129/80 Final Ao: 134/68 LV: 136/3/15 Recommendations CABG (CABG evaluation) Specimens None Radiation Exposure (mGy) 1661 mGy. Fluoro time 7.5 min. Contrast (mls) 60 ml Procedural Complication(s) None Disposition PCU ACC Data Cardiac Status Clinical evaluation leading to the procedure CAD Presntation: Unstable angina, Non STEMI Anginal Classification: CCS III Heart Failure: No Cardiogenic Shock w/in 24Hrs: No Cardiac Arrest w/in 24Hrs: No Imaging studies past 6 months: Yes Stress studies past 6 months: No Standard Exercise Stress Test: No Stress Echocardiogram: No Stress Testing w/SPECT MPI: No Cardiac CTA: No Coronary Anatomy Dominant: Left Left Main (% Stenosis): Normal LAD (% Stenosis): Ostial (80%), Proximal (90%), Mid (80%) D1 (% Stenosis): Normal D2 (% Stenosis): Normal D3 (% Stenosis): Normal Circumflex (% Stenosis): Mid (30%) OM1 (% Stenosis): Normal OM2 (% Stenosis): Normal L PL1 (% Stenosis): Proximal (50%) L PDA (% Stenosis): Proximal (95%) RCA (% Stenosis): Normal Left Ventricular Angiography EF (%): n/a Diagnostic Physician's Name: Javier Lara MD Status: Elective Closure Device Percutaneous Entry Location: Radial Closure Device: Radial Band Recommendations: CABG (CABG evaluation)
[2017-07-29] MEDS ORDERED: NURSING VERBAL MED ORDER ONE ×3 (17:15→19:30)
[2017-07-29] MEDS ORDERED: GABA1CAP4 PO (17:25)
[2017-07-29] MEDS ORDERED: LOSA50TA6 PO (17:25)
[2017-07-29] MEDS ORDERED: VALA500T39 PO (17:25)
[2017-07-29] MEDS ORDERED: PRED1SUS17 OPL (17:25)
[2017-07-29] MEDS ORDERED: CRS20 PO (17:38)
[2017-07-29] MEDS ORDERED: METO-479 PO (17:38)
--- NOTE | 2017-07-29 17:46 | Discharge Instructions ---
Discharge Instructions Date of Service Jul 29, 2017. Admission Reason for Admission: Nstemi Discharge Discharge Diagnosis / Problem: Non-ST elevation myocardial infarction Discharge Goals Goal(s): Decrease discomfort, Improve function, Diagnostic testing, Therapeutic intervention Activity Recommendations Activity Limitations: per Instructions/Follow-up section (per client relationship consultant recommendations below) . Instructions / Follow-Up Instructions / Follow-Up You were admitted to the hospital after presenting with exertional chest pain, shortness of breath, and an elevated cardiac enzyme called troponin. You were found to have ischemic changes on your EKG concerning for an acute myocardial infarction, or heart attack. You were started on a heparin drip and evaluated by cardiology. A cardiac catheterization was performed which revealed severe multi-vessel coronary artery disease (CAD), likely requiring coronary artery bypass. As this facility does not offer the necessary cardiothoracic surgery services required for your severe CAD, you are being transferred to [facility] for further evaluation and possible bypass graft surgery. Medications: *Your IV heparin drip will be resumed once your catheterization site stops bleeding. *Your home dose of metoprolol succinate has been increased to 100 mg daily. *Your cholesterol medication has been changed to a higher potency medication called rosuvastatin (Crestor) 40 mg. STOP taking simvastatin. Follow up: *Following your discharge from [facility], you will need to follow up with your sports teacher and primary care provider. Current Hospital Diet Patient's current hospital diet: AHA Diet (Heart Healthy) Discharge Diet Recommended Diet: AHA Diet (Heart Healthy) Procedures Procedures Performed: Cardiac catheterization Pending Studies Studies pending at discharge: no Medical Emergencies . Who to Call and When: Medical Emergencies: If at any time you feel your situation is an emergency, please call 911 immediately. . Non-Emergent Contact Non-Emergency issues call your: Primary Care Provider, Rescue Worker Call Non-Emergent contact if: you have a fever, your pain is not controlled, your pain is worsening, your pain is unusual for you, your pain is concerning you, wound has increased drainage, wound has increased redness, wound has increased pain, you have any medication questions . Past History Medical & Surgical History: (1) Non-ST elevation DC (NSTEMI) . "Provider Documentation" section prepared by Ольга Sanz. . Express Manager Recommendations Express Manager Recommendations: ACTIVITY RECOMMENDATIONS: Excess manipulation of the wrist should be avoided for the next 24-48 hours. * No lifting over 2 pounds (approximately a 1/2 gallon of milk) with the utilized arm for 24 hours. * No strenuous activity such as bowling or tennis for 3 days. * Keep the site of the procedure covered with a bandage for 24 hours. *You may shower the day after the procedure. Do not take a tub bath or submerge the puncture site in water for the next 3 days. *Do not operate any motorized equipment for 3 days. SPECIAL CARE INSTRUCTIONS: The site may be slightly bruised and sore following your procedure. Should any of the following occur, contact the Dr. who performed your procedure. 1. Redness/inflammation, swelling, chills, or fever, or colored drainage at procedure site within 3-7 days after your procedure. 2. Coldness, discoloration, ongoing numbness, severe pain, or swelling. Expect mild tingling of hand and tenderness at the puncture site for up to three days. If this persists beyond three days, or other symptoms develop, notify the Dr. who performed your procedure. BLEEDING: If the procedure site on your wrist begins to bleed, do not panic 1. Place 1 or 2 fingers firmly just slightly above the insertion site to stop the bleeding. You may be able to feel your pulse as you hold pressure. 2. Lift your finger after 5 minutes to see if the bleeding has stopped. 3. Once the bleeding has stopped, gently wipe the wrist area clean with a bandage. * If the bleeding from your wrist does not stop after 10 minutes, or if there is a large amount of bleeding or spurting, call 911 (do not drive yourself to the hospital). SKIN IRRITATION: * You may experience some redness and/or swelling in the area where radiation was administered. If any skin irritation occurs, please contact your family physician. FOLLOW UP VISIT: Keep any scheduled doctor appointments. VTE Core Measure Inpt VTE Proph given/why not?: Other Anticoagulation (heparin drip)
[2017-07-29] MEDS ORDERED: HydrALAZINE HCL 20 MG/ML VIAL ONE (17:57)
--- NOTE | 2017-07-29 18:06 | Discharge Summary ---
Discharge Summary Date of Service Jul 29, 2017. Discharge Summary Admission Date: Jul 29, 2017 at 11:31 Discharge Date: Jul 29, 2017 Discharge Disposition: Acute care facility ([facility]) Principal Diagnosis: NSTEMI, severe multi-vessel CAD Procedures: Procedure Note Procedure Date Jul 29, 2017. Pre-Procedure Diagnosis Non STEMI AUC Score 9 Post-Procedure Diagnosis Severe CAD Procedure(s) Performed Coronary Angiography, Left Heart Cath Air Tank Assembler Dr. Lara Photogrammetric Stereo Compiler(s) Glunt Estimated Blood Loss < 20 ml Medication(s) Fentanyl, Heparin, Nicardipine, Versed, Lidocaine 1% Summary of Findings Coronary angiography: 1. Left main coronary artery: There appears to be a very short left main coronary artery which does appear to give rise to LAD and circumflex but is very short in length. No significant CAD. 2. Left anterior descending: The LAD is mildly calcified throughout the proximal to midportion. Ostial LAD 80%. Proximal LAD 90% at the bifurcation site of first diagonal vessel which is a medium caliber vessel. The proximal to mid LAD is diffusely disease. Mid LAD 80%. Large caliber D2. Small caliber D3. 3. Circumflex: Large caliber dominant circumflex. Mid circumflex 30%. Very small caliber OM1. Large caliber OM2. Large caliber PL branch with proximal 50 % stenosis. Large caliber PDA with proximal 95% stenosis with KT 3 flow. 4. Right coronary artery: The RCA is small in non dominant. No angiographic evidence of significant CAD. Left heart catheterization: 1. Left ventriculography was not performed as echo was performed earlier today. 2. No significant aortic stenosis. Peak to peak gradient across the aortic valve was 0. 3. There is no significant intracavitary gradient noted. 4. Mildly elevated LVEDP; 15mmHg. Sedation start time: 3:12 p.m. Sedation end time: 1:45 p.m. Procedural details: 1. Coronary angiography was performed via the right radial artery without known complication. Impression: 1. Severe CAD involving the proximal to mid LAD and circumflex PDA. 2. Nonobstructive CAD involving PL and mid circumflex. 3. Dominant circumflex. 4. Mildly elevated LVEDP. 5. No aortic stenosis. Plan: 1. Images were reviewed with dehairing machine tender, Dr. Joya. CT surgery evaluation was recommended for multivessel bypass surgery including the LAD and PDA. 2. High-intensity statin therapy. 3. Risk factor modification. 4. Dr. Vega (CT surgery) at [facility] has accepted Mr. Gill in transfer. Hemodynamics Rest Ao: 129/80 Final Ao: 134/68 LV: 136/3/15 Recommendations CABG (CABG evaluation) Specimens None Radiation Exposure (mGy) 1661 mGy. Fluoro time 7.5 min. Contrast (mls) 60 ml Procedural Complication(s) None Disposition PCU Consultations: Cardiology Medication Reconciliation New Medications: Metoprolol Succinate (Toprol Xl) 100 Mg Tab 1 TAB PO DAILY for 30 Days, #30 TAB Rosuvastatin Calcium (Crestor) 20 Mg Tab 40 MG PO HS for 30 Days, #60 TAB Continued Medications: Albuterol Hfa (Ventolin Hfa) 200 Puffs/79288 Mcg Aers 2 PUFF INH Q4 PRN for Shortness of Breath, #18 Alfuzosin HCl (Uroxatral) 10 Mg Tab 10 MG PO HS Amlodipine Besylate (Amlodipine Besylate) 5 Mg Tab 10 MG PO QAM for 30 Days, TAB Aspirin (Aspirin Ec) 325 Mg Tab 81 MG PO DAILY B-Complex W/ C & Folic Acid (Renal) 1 Cap Cap 1 CAP PO QAM for 30 Days, CAP Calcium Carbonate-Vitamin D W/ (Caltrate 600 Plus) 1 Tab Tab 1 TAB PO BID, TAB Capsaicin (Zostrix Arthritis Pain Re) 0.025 % Cre 1 APPLN TOP QID PRN for Pain Cholecalciferol (Vitamin D 1000 Unit) 1,000 Unit Cap 1000 INTER.UNIT PO DAILY, CAP Desloratadine (Clarinex) 5 Mg Tab 5 MG PO DAILY PRN for ALLERGIES, TAB Duloxetine HCl (Duloxetine HCl) 60 Mg Cap 60 MG PO DAILY, #30 Dutasteride (Dutasteride) 0.5 Mg Cap 0.5 MG PO DAILY, #30 Gabapentin (Gabapentin) 300 Mg Cap 1 CAP PO TID for 30 Days, #90 CAP 5 Refills Levothyroxine Sodium (Levothyroxine Sodium) 100 Mcg Tab 100 MCG PO DAILY, #30 Losartan Potassium (Cozaar) 50 Mg Tab 1 TAB PO DAILY for 30 Days, #30 TAB 5 Refills Mometasone Furoate-Formoterol (Dulera 100/5 Mcg) 1 Aer Aer 2 PUFFS INH Q12 for 30 Days, #13 GM 2 Refills Omeprazole (Prilosec) 40 Mg Cap 40 MG PO DAILY, CAP Polyethylene Glycol 3350 (Miralax) 1 Pow Pow 1 TBS PO HS Prednisolone Acetate (Ophth) (Prednisolone Acetate) 1 % Domenica 1 DROPS OPL QID for 5 Days, #5 ML Ranitidine (Zantac) 150 Mg Tab 150 MG PO HS, TAB Tadalafil (Cialis) 5 Mg Tab 5 MG PO DAILY, #30 Trospium Chloride (Trospium Chloride Er) 60 Mg Cap 60 MG PO DAILY Valacyclovir Hcl (Valtrex) 500 Mg Tab 1 TAB PO DAILY for 30 Days, #30 TAB 11 Refills Discontinued Medications: Metoprolol Succinate (Metoprolol Succinate ER) 50 Mg Tabcr 75 MG PO DAILY for 30 Days Simvastatin (Zocor) 20 Mg Tab 20 MG PO QPM, TAB Discharge Exam Patient examined following cardiac cath. Currently denies any chest pain or shortness of breath. Feeling well post procedure and denies any complaints. He states that he has urinated without difficulty following procedure and denies any pain or hemorrhaging of right radial cath site. The patient denies fevers, chills, sweats, chest pain, palpitations, claudication, cough, wheezing , shortness of breath, nausea, vomiting, abdominal pain, dysuria, hematuria, urinary retention, paralysis, weakness, acute numbness and tingling. Constitutional: No fever, No chills, No sweats Eyes: No worsening of vision, No eye pain, No diplopia ENT: No hearing loss, No nasal symptoms, No trouble swallowing Respiratory: No cough, No wheezing, No shortness of breath Cardiovascular: No chest pain, No claudication, No palpitations Abdomen: No pain, No nausea, No vomiting Musculoskeletal: No joint pain, No muscle pain, No swelling Genitourinary - Male: No dysuria, No urinary retention, No hematuria Neurologic: No paralysis, No weakness, No numbness/tingling Integumentary: No rash, No itch, No color change General appearance: +Obese. Well-developed, well-nourished, no apparent distress Head: Normocephalic, atraumatic Eyes: Normal inspection, PERRL, EOMI ENT: Normal ENT inspection, hearing grossly normal, pharynx normal Neck: Supple, no JVD, trachea midline Respiratory/Chest: +Diminished breath sounds. Lungs clear to auscultation, no respiratory distress Cardiovascular: Regular rate & rhythm, no gallop, no murmur Abdomen/GI: Normal bowel sounds, non-tender, soft Extremities/Musculoskeletal: +Right radial cath site w/cuff. Trace pitting edema lower extremities bilaterally. Normal inspection, no calf tenderness Neurological/Psych: Alert, normal mood/affect, oriented x 3 Skin: Normal color, warm/dry, no rash Hospital Course 81 y/o male with a history of HTN, HLD, h/o CVA, COPD, hypothyroidism, depression, h/o herpes zoster ophthalmicus w/postherpetic neuralgia, BPH and GERD who presented to the ED on 07/29 with exertion chest pain and shortness of breath. The patient had presented via EMS from his PCP office after having EKG changes. Pt was found to have elevated troponin of 3.[address] depressions concerning for NTSEMI. Pt's vital signs were stable on arrival to ED and pain was relieved with nitro. Acute NSTEMI -Admitted to telemetry -IV heparin drip. Was put on hold following cath, resume this after hemostasis achieved -Cardiology consulted, appreciate recs: Recommend continuing ASA, heparin drip , beta vasiliy and starting high intensity statin. Pt did not tolerate Lipitor , recommend Crestor 40 mg. Recommend cardiac cath. -Cardiac cath showed severe CAD of LAD and PDA -CT surgery evaluation for CABG recommended, not offered at this facility -Pt accepted by Dr. Vega at [facility] -Simvastatin d/c'd -Start Crestor 40 mg PO qd -Toprol XL increased to 100 mg PO qd per cardio recs -Continue ASA, heparin, BB, statin, losartan HTN, HLD--stable -Continue ASA, Toprol as above, losartan 50 mg PO qd, Norvasc 10 mg PO qd, Crestor as above COPD--stable -Continue Dulera 2 puffs inh BID, albuterol prn Hypothyroidism -Continue Synthroid 100 mcg PO qd Depression -Continue duloxetine 60 mg PO qd H/o herpes zoster ophthalmicus w/postherpetic neuralgia -Continue valacyclovir 500 mg PO qd, gabapentin 300 mg PO TID, and Prednisolone drops BPH, overactive bladder -Continue alfuzosin 10 mg PO hs, dutasteride 0.5 mg PO qd, trospium chloride 60 mg PO qd GERD -Prilosec converted to Protonix while inpt DVT prophylaxis -Heparin drip Code Status -Level I, FULL RESUSCITATION STATUS Dispo -Acute transfer to [facility] for CT surgery eval, likely will need multi-vessel CABG -F/u with cardiology and PCP after d/c from [facility] Total Time Spent: Greater than 30 minutes This includes examination of the patient, discharge planning, medication reconciliation, and communication with other providers. Discharge Instructions Please refer to the electronic Patient Visit Report (Discharge Instructions) for additional information. Additional Copies To Gio Angel M.D.
[2017-07-29] MEDS ORDERED: HydrALAZINE HCL 20 MG/ML VIAL IV. PRN (18:15)
[2017-07-29] MEDS ORDERED: SIMVASTATIN 20 MG TAB PO SCH (21:00)
[2017-07-29] MEDS ORDERED: PrednisoLONE ACET 1% OP SUSP 5 ML BTL OPL SCH (21:00)
[2017-07-29] MEDS ORDERED: CALCIUM 600MG + VIT D 400 IU TAB PO SCH (21:00)
[2017-07-29] MEDS ORDERED: POLYETHYLENE (MIRALAX) 17 GM PACK PO SCH (21:00)
[2017-07-29] MEDS ORDERED: ROSUVASTATIN CALCIUM 20 MG TAB PO SCH (21:00)
[2017-07-29] MEDS ORDERED: GABAPENTIN 300 MG CAP PO SCH (21:00)
[2017-07-29] MEDS ORDERED: ALFUZosin TAB 10 MG TAB PO SCH (21:00)
[2017-07-29] MEDS ORDERED: RANITIDINE HCL 150 MG TAB PO SCH (21:00)
--- NOTE | 2017-07-29 21:02 | ECHOCARDIOGRAM REPORT ---
*NOTICE TO RECEIVING CONSTITUTION PARTY AGENCY This information is strictly Confidential and protected under [place] law. [place] law prohibits you from making any further disclosure of this information unless further disclosure is expressly permitted by the written consent of the person to whom it pertains or is authorized by law. A general authorization for the release of medical or other information is not sufficient for this purpose. Hospital accepts no responsibility if the information is made available to any other person, INCLUDING THE PATIENT. Interpretation Summary * Name: CHARLEY BROWN Study Date: 07/29/2017 12:00 PM BP: 130/83 mmHg * Patient Location: C.2T\S\E220\S\1 HR: 104 * : 1935 (M/d/y) Gender: Male Height: 70 in * Age: 81 yrs Ethnicity: CA Weight: 223 lb * Ordering Physician: Don Blackwood * Referring Physician: UNKNOWN * Performed By: Meka Ricardo RCS * * Reason For Study: Chest Pain * BSA: 2.2 m2 * -- Conclusions -- * 1. Normal left ventricular size with hyperdynamic systolic function. EF > 70%. No regional wall motion abnormalities. No left ventricular hypertrophy. Type I diastolic dysfunction. * 2. No significant valvular abnormalities visualized, but valves were not well seen. * 3. There is suggestion of LV intracavitary gradient of 76 mmHg. * 4. Technically difficult study, enhanced with IV Definity. * 5. Compared to prior study on 12/21/2016, there is now suggestion of LV intracavitary gradient. Procedure Details * A complete two-dimensional transthoracic echocardiogram was performed (2D, M-mode, Doppler and color flow Doppler). * A contrast injection of Definity was performed to improve assessment of LV function. * Contrast was injected into an intravenous site in the right arm. * One vial of Definity ultrasound contrast was diluted in normal saline to a total volume of 10 ml. A total of '1' ml of solution was administered during imaging. * Lot # [id number] of Definity utilized for procedure. * Expiration date . * The attending nurse who injected the contrast agent was Kayla Gary RN. Left Ventricle * Normal left ventricular size with hyperdynamic systolic function. EF > 70%. No regional wall motion abnormalities. No left ventricular hypertrophy. Type I diastolic dysfunction. Right Ventricle * The right ventricle is normal in size and function. * The right ventricular systolic function is normal as assessed by tricuspid annular plane systolic excursion (TAPSE) (normal >1.5 cm). Atria * The left atrial size is normal. * Right atrial size is normal. Mitral Valve * The mitral valve is grossly normal. * There is no mitral valve stenosis. * Significant mitral regurgitation is absent. Tricuspid Valve * The tricuspid valve is not well visualized. * Significant tricuspid regurgitation is absent. Aortic Valve * The aortic valve is not well visualized. * No hemodynamically significant valvular aortic stenosis. Pulmonic Valve * The pulmonic valve is not well visualized. * There is no pulmonic valvular stenosis. Great Vessels * The aortic root is normal size. * Ascending aorta of normal dimension Pericardium/Pleural * There is no pericardial effusion. Great Vessels * Normal inferior vena cava size and collapsability with sniff indicates a normal right atrial pressure of 3 mmHg MMode 2D Measurements and Calculations IVSd 1.1 cm LVIDd 3.3 cm LVIDs 1.7 cm LVPWd 0.94 cm IVS/LVPW 1.1 FS 49.1 % EDV(Teich) 43.2 ml ESV(Teich) 8.0 ml EF(Teich) 81.6 % EDV(cubed) 35.0 ml ESV(cubed) 4.6 ml EF(cubed) 86.8 % LV mass(C)d 92.9 grams LV mass(C)dI 42.5 grams/m\S\2 SV(Teich) 35.2 ml SI(Teich) 16.1 ml/m\S\2 SV(cubed) 30.4 ml SI(cubed) 13.9 ml/m\S\2 Ao root diam 3.4 cm Ao root area 9.1 cm\S\2 ACS 1.5 cm LA dimension 3.1 cm asc Aorta Diam 2.9 cm LA/Ao 0.91 EDV(MOD-sp4) 174.9 ml ESV(MOD-sp4) 38.8 ml EF(MOD-sp4) 77.8 % EDV(MOD-sp2) 107.0 ml ESV(MOD-sp2) 33.4 ml EF(MOD-sp2) 68.8 % SV(MOD-sp4) 136.1 ml SI(MOD-sp4) 62.3 ml/m\S\2 SV(MOD-sp2) 73.6 ml SI(MOD-sp2) 33.7 ml/m\S\2 Doppler Measurements and Calculations MV E max dionisio 53.1 cm/sec MV A max dionisio 99.2 cm/sec MV E/A 0.53 MV P1/2t max dionisio 72.8 cm/sec MV P1/2t 57.7 msec MVA(P1/2t) 3.8 cm\S\2 MV dec slope 369.3 cm/sec\S\2 MV dec time 0.30 sec PA V2 max 172.1 cm/sec PA max PG 11.9 mmHg
[2017-07-30] MEDS ORDERED: LEVOTHYROXINE 100 MCG TAB PO SCH (06:00)
[2017-07-30] MEDS ORDERED: ASPIRIN 325 MG ECTAB PO SCH (09:00)
[2017-07-30] MEDS ORDERED: METOPROLOL SUCC 25MG EXT REL TAB PO SCH (09:00)
[2017-07-30] MEDS ORDERED: LOSARTAN POTASSIUM 50 MG TAB PO SCH (09:00)
[2017-07-30] MEDS ORDERED: PANTOprazole SOD 40 MG TAB PO SCH (09:00)
[2017-07-30] MEDS ORDERED: DULOXETINE HCL 60 MG CAP PO SCH (09:00)
[2017-07-30] MEDS ORDERED: FINASTERIDE 5 MG TAB PO SCH (09:00)
[2017-07-30] MEDS ORDERED: ASPIRIN 81 MG ECTAB PO SCH (09:00)
[2017-07-30] MEDS ORDERED: METOPROLOL SUCC 50MG EXT REL TAB PO SCH (09:00)
[2017-07-30] MEDS ORDERED: AMLODIPINE BESYLATE 5 MG TAB PO SCH (09:00)
[2017-07-30] MEDS ORDERED: CHOLECALCIFEROL 1000 INTER.UNIT TAB PO SCH (09:00)
[2017-07-30] MEDS ORDERED: NEPHROCAPS PO SCH (09:00)
== END 2017-07-29 20:20 | disposition short-term general hospital (02) | DRG 282 ==
LOC: EDBD 09:05 → C.EDB 09:06 → C.2T 11:31 → ENRESERV 12:36
PROVIDERS: ADMIT Hospitalist; ATTEND Hospitalist
PROC: 4A023N7 Measurement of Cardiac Sampling and Pressure, Left Heart, Percutaneous Approach (ICD-10-PCS; principal; 2017-07-29 14:28)
PROC: B211YZZ Fluoroscopy of Multiple Coronary Arteries using Other Contrast (ICD-10-PCS; principal; 2017-07-29 14:28)
DX: I21.4 Non-ST elevation (NSTEMI) myocardial infarction (principal); I25.110 Atherosclerotic heart disease of native coronary artery with unstable angina pectoris; I12.9 Hypertensive chronic kidney disease with stage 1 through stage 4 chronic kidney disease, or unspecified chronic kidney disease; N18.9 Chronic kidney disease, unspecified; E78.5 Hyperlipidemia, unspecified; E03.9 Hypothyroidism, unspecified; G62.9 Polyneuropathy, unspecified; K21.9 Gastro-esophageal reflux disease without esophagitis; J44.9 Chronic obstructive pulmonary disease, unspecified; N40.0 Benign prostatic hyperplasia without lower urinary tract symptoms; N32.81 Overactive bladder; F32.9 Major depressive disorder, single episode, unspecified; E55.9 Vitamin D deficiency, unspecified; M19.90 Unspecified osteoarthritis, unspecified site; Z86.19 Personal history of other infectious and parasitic diseases; Z87.448 Personal history of other diseases of urinary system; Z86.2 Personal history of diseases of the blood and blood-forming organs and certain disorders involving the immune mechanism; Z79.82 Long term (current) use of aspirin; Z79.899 Other long term (current) drug therapy; Z88.1 Allergy status to other antibiotic agents; Z88.8 Allergy status to other drugs, medicaments and biological substances

== ENCOUNTER → 2017-08-10 | Outpatient (CLI) | payer OTHER ==
[~2017-08-10] MED LIST changes: +CRS20 PO; -DXY100 PO; +GABA1CAP4 PO; +LOSA50TA6 PO; +METO-479 PO; +PRED1SUS17 OPL; -PRS5 PO; -SIMV20TA2 PO; -TPRSR50 PO; +VALA500T39 PO
[2017-08-10 13:39] LABS: BASO % 0.5 %; BASO ABS # 0.04 K/uL (0-0.2); COMPLETE YES; EOS % 4.4 %; HEMATOCRIT 37.6 % (42-52); IG% 0.4 %; LYMPH % 23.9 %; LYMPH ABS # 1.79 K/uL (1.2-3.4); MEAN CELL VOLUME 90.2 fL (80-100); MEAN CORPUSCULAR HEMOGLOBIN 30.5 pg (25-34); MEAN CORPUSCULAR HGB CONC 33.8 g/dl (32-36); MEAN PLATELET VOLUME 9.3 fL (7.4-10.4); MONO % 8.9 %; NEUT % 61.9 %; PLATELET COUNT 279 K/uL (130-400); RED BLOOD COUNT 4.17 M/uL (4.7-6.1); WHITE BLOOD COUNT 7.49 K/uL (4.8-10.8)
[2017-08-10 13:54] LABS: ALT/SGPT 29 U/L (12-78); BLOOD UREA NITROGEN 28 mg/dl (7-18); CALCIUM 8.8 mg/dl (8.5-10.1); CARBON DIOXIDE 24 mmol/L (21-32); CHLORIDE 106 mmol/L (98-107); CHOLESTEROL 141 mg/dl (0-200); GLUCOSE 95 mg/dl (70-99); POTASSIUM 4.5 mmol/L (3.5-5.1); SODIUM 137 mmol/L (136-145)
[2017-08-10 14:04] LABS: ALB/GLOB RATIO 1.2 (0.9-2); ALKALINE PHOSPHATASE 96 U/L (45-117); AST/SGOT 20 U/L (15-37); CHOLESTEROL/HDL RATIO 3.4; HDL CHOLESTEROL 41 mg/dl; LDL CHOLESTEROL CALCULATED 50 mg/dl; TRIGLYCERIDES 251 mg/dl (0-150); VERY LOW DENSITY LIPOPROT CALC 50 mg/dl
== END | disposition home or self-care (01) ==
LOC: C.LABBC 11:10
PROVIDERS: ATTEND Physician Assistant
DX: I10 Essential (primary) hypertension (principal); E78.5 Hyperlipidemia, unspecified; M19.90 Unspecified osteoarthritis, unspecified site; I65.21 Occlusion and stenosis of right carotid artery; I67.2 Cerebral atherosclerosis; E03.9 Hypothyroidism, unspecified; D64.9 Anemia, unspecified

== ENCOUNTER 2017-10-12 19:19 | Inpatient (IN) | payer OTHER ==
[~2017-10-12] VITALS: Ht 177.8 cm; Wt 99.7 kg
[~2017-10-12 19:19] MED LIST changes: -ASPI325T39 PO; -CYM60 PO; -DUTA1CAP3 PO; +GABA-1219 PO; -GABA1CAP4 PO; -LEVO100T7 PO; -MOME100A INH; -OMEP40CA41 PO; +RANI150T85 PO; -TADA5TAB11 PO; -VNTHFA/IN INH; -ZNTT/150 PO
[2017-10-12] MEDS ORDERED: CYM60 PO (19:54)
[2017-10-12] MEDS ORDERED: MOME100A INH (19:54)
[2017-10-12] MEDS ORDERED: DUTA1CAP3 PO (19:54)
[2017-10-12] MEDS ORDERED: TADA5TAB11 PO (19:54)
[2017-10-12] MEDS ORDERED: VNTHFA/IN INH (19:54)
[2017-10-12] MEDS ORDERED: ASPI325T39 PO (19:54)
[2017-10-12] MEDS ORDERED: LEVO100T7 PO (19:54)
[2017-10-12] MEDS ORDERED: OMEP40CA41 PO (19:54)
[2017-10-12] MEDS ORDERED: ASPIRIN 81 MG CHEW PO STA (20:43)
[2017-10-12 20:50] LABS: BASO % 0.7 %; BASO ABS # 0.04 K/uL (0-0.2); EOS % 5.8 %; EOS ABS # 0.32 K/uL (0-0.5); HEMATOCRIT 38.7 % (42-52); HEMOGLOBIN 13.1 g/dL (14.0-18.0); IG# 0.02 K/uL (0.00-0.02); LYMPH % 25.4 %; LYMPH ABS # 1.39 K/uL (1.2-3.4); MEAN CELL VOLUME 88.6 fL (80-100); MEAN CORPUSCULAR HGB CONC 33.9 g/dl (32-36); MONO % 9.5 %; MONO ABS # 0.52 K/uL (0.11-0.59); NEUT % 58.2 %; NEUT ABS # 3.19 K/uL (1.4-6.5); PLATELET COUNT 203 K/uL (130-400); RED CELL DISTRIBUTION WIDTH CV 13.5 % (11.5-14.5); RED CELL DISTRIBUTION WIDTH SD 43.5 fL (36.4-46.3); WHITE BLOOD COUNT 5.48 K/uL (4.8-10.8)
--- NOTE | 2017-10-12 20:57 | EMERGENCY ROOM VISIT NOTE ---
History Report prepared by Yayo: Rod Petty Under the Supervision of: Dr. Garrett Cooper M.D. First contact with patient: 20:37 Chief Complaint: CARDIAC ASSESSMENT Stated Complaint: SLIGHT HEART PAIN-CARDIAC HX History of Present Illness The patient is a 81 year old male who presents to the Emergency Room with complaints of improving left chest pain starting earlier today. The patient states that he was at [employer] this morning, and he was told that he was pale. Afterwards he states that he had some left shoulder pain, though he was lifting 7.5 lbs earlier. He states that afterwards he also started getting this chest pain, and he states that he was not doing anything when the pain came. The patient states that the chest pain has been getting better, and he states that nothing specifically has been making it better. He states that he has a history of an AK in July, and he had 2 stents placed. The patient states that he did not take any medications for the pain, and he states that the pain is worsened with palpation. He states that he takes aspirin daily, though he does not take any blood thinners. He takes Cialis for his prostate. Source of History: patient Onset: earlier today Position: chest Timing: other (improving) Modifying Factors (Worsening): other (palpation) Modifying Factors (Relieving): other (nothing) Note: Associated symptoms: Shoulder pain Review of Systems See HPI for pertinent positives & negatives. A total of 10 systems reviewed and were otherwise negative. 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 Social History Smoking Status: Former Smoker Alcohol Use: occasionally Drug Use: none Housing Status: lives with significant other Occupation Status: retired Current/Historical Medications Scheduled Alfuzosin HCl (Uroxatral), 10 MG PO HS Ascorbic Acid (Vitamin C 500 mg), 1 TAB PO DAILY Aspirin (Aspirin Ec), 81 MG PO DAILY Atorvastatin (Lipitor), 40 MG PO DAILY B-Complex W/ C & Folic Acid (Renal), 1 CAP PO QAM Calcium Carbonate-Vitamin D W/ (Caltrate 600 Plus), 1 TAB PO DAILY Cholecalciferol (Vitamin D 1000 Unit), 1,000 INTER.UNIT PO DAILY Clopidogrel (Plavix), 75 MG PO DAILY Duloxetine HCl (Duloxetine HCl), 60 MG PO DAILY Dutasteride (Dutasteride), 0.5 MG PO DAILY Gabapentin (Gabapentin), 1 CAP PO HS Levothyroxine Sodium (Levothyroxine Sodium), 100 MCG PO DAILY Losartan Potassium (Cozaar), 1 TAB PO DAILY Metoprolol Succinate (Metoprolol Succinate ER), 50 MG PO DAILY Mometasone Furoate-Formoterol (Dulera 100/5 Mcg), 2 PUFFS INH Q12 Nitroglycerin (Nitrostat), 0.4 MG UT PRN Omeprazole (Prilosec), 40 MG PO DAILY Polyethylene Glycol 3350 (Miralax), 1 TBS PO HS Prednisolone Acetate (Ophth) (Prednisolone Acetate), 1 DROPS OPL DAILY Psyllium (Metamucil), 2 TBS PO QAM Tadalafil (Cialis), 5 MG PO DAILY Valacyclovir Hcl (Valtrex), 1 TAB PO DAILY Scheduled PRN Acetaminophen (Tylenol), 1,000 MG PO TID PRN for Pain Albuterol Hfa (Ventolin Hfa), 2 PUFF INH Q4 PRN for Shortness of Breath Desloratadine (Clarinex), 5 MG PO DAILY PRN for ALLERGIES Allergies Coded Allergies: Erythromycin (Verified Allergy, Intermediate, THROAT BEGAN TO SWELL SHUT, 10/12/17) PT Atorvastatin (Verified Adverse Reaction, Intermediate, MYALGIAS, 10/12/17) PT/ALLSCRIPTS Lisinopril (Verified Adverse Reaction, Intermediate, COUGH, 10/12/17) Physical Exam Vital Signs Date Time Temp Pulse Resp B/P (MAP) Pulse Ox O2 Delivery O2 Flow Rate FiO2 10/12/17 21:41 63 18 162/78 96 Room Air 10/12/17 20:51 66 18 179/70 97 Room Air 10/12/17 20:46 Room Air 10/12/17 20:46 93 Room Air 10/12/17 20:46 93 Room Air 10/12/17 20:44 65 10/12/17 19:27 36.7 70 22 182/78 97 Room Air Physical Exam GENERAL: Patient is a healthy-appearing well-nourished male HEAD: Normocephalic atraumatic EYES: Ocular movements intact pupils equal and react to light OROPHARYNX mucous membranes are moist no exudates present no erythema or edema present NECK: Supple no nuchal rigidity CHEST: Reproducible chest pain on the left. Good equal expansion LUNGS: Clear and equal to auscultation CARDIAC: Normal S1 and S2 ABDOMEN: Soft nontender no guarding BACK: No CVA tenderness EXTREMITIES: No pain upon palpation normal muscle strength in all groups no clubbing cyanosis or edema NEURO: Patient is following commands and answering questions appropriately. Alert and oriented x3 Cranial Nerves 2-12 grossly intact Medical Decision & Procedures ER Provider Diagnostic Interpretation: Radiology results as stated below per my review and radiologist interpretation: CHEST ONE VIEW PORTABLE HISTORY: Atypical CHEST PAIN COMPARISON: Chest 07/29/2017. FINDINGS: The heart remains borderline enlarged. Mild diffuse interstitial thickening, unchanged. No new focal lung consolidations. Retrocardiac density is consistent with a large hiatus hernia. This remains unchanged. No pleural effusions. No pneumothorax. IMPRESSION: No significant change compared to the prior study. No acute process. Large hiatus hernia. Electronically signed by: Spencer Snyder M.D. 10/12/2017 9:21 PM Dictated Date/Time: 10/12/2017 9:19 PM Laboratory Results Test 10/12/17 19:47 Total Bilirubin 0.7 mg/dl (0.2-1) Direct Bilirubin 0.2 mg/dl (0-0.2) Aspartate Amino Transf (AST/SGOT) 27 U/L (15-37) Alanine Aminotransferase (ALT/SGPT) 33 U/L (12-78) Alkaline Phosphatase 106 U/L (45-117) Total Protein 7.2 gm/dl (6.4-8.2) Albumin 3.8 gm/dl (3.4-5.0) Lipase 275 U/L (73-393) Labs reviewed by ED physician. Medications Administered Medications (Trade) Dose Ordered Sig/Sheree Route Start Time Stop Time Status Last Admin Dose Admin Aspirin (Aspirin Chew) 324 mg NOW STAT PO 10/12/17 20:43 10/12/17 20:44 DC 10/12/17 20:50 324 MG ECG Per My Interpretation Indication: chest pain Rate (beats per minute): 65 Rhythm: normal sinus Findings: T-wave inversion (Lateral), other (normal axis) Change: REPEAT EKG: No significant change from the first. ED Course 2036: Past medical records reviewed. The patient was evaluated in room C2. A complete history and physical examination was performed. 2042: Aspirin 324mg PO 2133: Upon reexamination the patient is doing well. I discussed results and treatment plan with the patient. He verbalizes agreement and understanding. The patient will be evaluated for further management. 2135: I discussed the patient's case with Dr[facility], he has agreed to evaluate the patient for further management and care. Medical Decision Differential diagnosis: Etiologies such as cardiac ischemia, aortic dissection, pulmonary embolism, pneumonia, pneumothorax, musculoskeletal, infections, pericarditis, myocarditis , esophageal rupture, gastrointestinal, as well as others were entertained. This is a 81-year-old male who presents emergency department complaining of chest pain. The patient is adamantly refusing to be admitted however he has changes in his EKG. In addition the patient also has an elevation in his troponin. Based on these findings the patient was given aspirin and started on heparin drip. I did discuss the case with the hospitalist service who agreed to admit the patient. Patient was in agreement with the treatment plan. Medication Reconcilliation Current Medication List: was personally reviewed by me Blood Pressure Screening Patient's blood pressure: Elevated blood pressure Monitored by the hospitalist Consults Time Called: 2133 Consulting Physician: Dr. Fareed [facility] Returned Call: 2135 I discussed the patient's case with Dr. Fareed [facility], he has agreed to evaluate the patient for further management and care. Impression Primary Impression: Precordial chest pain Scribe Attestation The scribe's documentation has been prepared under my direction and personally reviewed by me in its entirety. I confirm that the note above accurately reflects all work, treatment, procedures, and medical decision making performed by me. Departure Information Dispostion Being Evaluated By Hospitalist Referrals Gio Angel M.D. (PCP) Patient Instructions My [facility]
[2017-10-12 21:03] LABS: ALBUMIN 3.8 gm/dl (3.4-5.0); CALCIUM 8.7 mg/dl (8.5-10.1); CREATININE 1.23 mg/dl (0.60-1.40); POTASSIUM 4.1 mmol/L (3.5-5.1)
[2017-10-12] MEDS ORDERED: ATOR-24 PO (21:17)
[2017-10-12] MEDS ORDERED: ACET-1256 PO (21:17)
[2017-10-12] MEDS ORDERED: NITR0.4S UT (21:17)
[2017-10-12] MEDS ORDERED: CLOP1TAB15 PO (21:17)
[2017-10-12] MEDS ORDERED: TPRSR/50 PO (21:17)
[2017-10-12] MEDS ORDERED: ASCO500C43 PO (21:17)
[2017-10-12] MEDS ORDERED: CZR50 PO (21:17)
--- NOTE | 2017-10-12 21:22 | DIAGNOSTIC IMAGING REPORT ---
CHEST ONE VIEW PORTABLE HISTORY: Atypical CHEST PAIN COMPARISON: Chest 07/29/2017. FINDINGS: The heart remains borderline enlarged. Mild diffuse interstitial thickening, unchanged. No new focal lung consolidations. Retrocardiac density is consistent with a large hiatus hernia. This remains unchanged. No pleural effusions. No pneumothorax. IMPRESSION: No significant change compared to the prior study. No acute process. Large hiatus hernia. Electronically signed by: Spencer Snyder M.D. 10/12/2017 9:21 PM Dictated Date/Time: 10/12/2017 9:19 PM
[2017-10-12 21:24] LABS: CKMB 2.9 ng/ml (0.5-3.6); TOTAL PROTEIN 7.2 gm/dl (6.4-8.2)
[2017-10-12] MEDS ORDERED: PSYL48.59 PO (21:43)
[2017-10-12] MEDS ORDERED: MAGNESIUM HYDROXIDE SUSP 30 ML UDC PO PRN (23:00)
[2017-10-12] MEDS ORDERED: POLYETHYLENE (MIRALAX) 17 GM PACK PO PRN (23:00)
[2017-10-12] MEDS ORDERED: ALUMINUM/MAGNESIUM/SIMETH (MAALOX MAX) 30 ML UDC PO PRN (23:00)
[2017-10-12] MEDS ORDERED: ACETAMINOPHEN 325 MG TAB PO PRN (23:00)
[2017-10-12] MEDS ORDERED: NITROGLYCERIN 0.4 MG SL PER TAB CHARGE SL PRN (23:00)
[2017-10-12] MEDS ORDERED: HEPARIN 25000 UNIT/500 ML D5W ONE (23:02)
--- NOTE | 2017-10-12 23:29 | History and Physical ---
History & Physical Date & Time of Service: Oct 12, 2017 at 23:29 Chief Complaint: Slight Heart Pain-Cardiac Hx Primary Care Physician: Gio Angel M.D. History of Present Illness Source: patient, hospital records The patient is a 81-year-old male presents to the emergency department with the report of left-sided chest pain at [employer] this morning, and being told he looked pale. Afterwards, he had some intermittent left shoulder pain, that he thought was related to lifting 7.5 pound weights this morning. He then states that later on in the day he began to get chest pain again at rest, that it was then starting to get better again, however, when he told his family, they urged him to come to the emergency department for assessment. He has a history of an TX in July, with coronary stents placement, and has been taking aspirin daily as directed. 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 Social History Smoking Status: Former Smoker Smokeless Tobacco Use: No Alcohol Use: none Drug Use: none Occupational Status: retired Immunizations History of Influenza Vaccine: Unknown History of Tetanus Vaccine?: Unknown History of Pneumococcal: Unknown History of Hepatitis B Vaccine: Unknown Multi-Drug Resistant Organisms History of MDRO: No Allergies Coded Allergies: Erythromycin (Verified Allergy, Intermediate, THROAT BEGAN TO SWELL SHUT, 10/12/17) PT Atorvastatin (Verified Adverse Reaction, Intermediate, MYALGIAS, 10/12/17) PT/ALLSCRIPTS Lisinopril (Verified Adverse Reaction, Intermediate, COUGH, 10/12/17) Home Medications Scheduled Alfuzosin HCl (Uroxatral), 10 MG PO HS Ascorbic Acid (Vitamin C 500 mg), 1 TAB PO DAILY Aspirin (Aspirin Ec), 81 MG PO DAILY Atorvastatin (Lipitor), 40 MG PO DAILY B-Complex W/ C & Folic Acid (Renal), 1 CAP PO QAM Calcium Carbonate-Vitamin D W/ (Caltrate 600 Plus), 1 TAB PO DAILY Cholecalciferol (Vitamin D 1000 Unit), 1,000 INTER.UNIT PO DAILY Clopidogrel (Plavix), 75 MG PO DAILY Duloxetine HCl (Duloxetine HCl), 60 MG PO DAILY Dutasteride (Dutasteride), 0.5 MG PO DAILY Gabapentin (Gabapentin), 1 CAP PO HS Levothyroxine Sodium (Levothyroxine Sodium), 100 MCG PO DAILY Losartan Potassium (Cozaar), 1 TAB PO DAILY Metoprolol Succinate (Metoprolol Succinate ER), 50 MG PO DAILY Mometasone Furoate-Formoterol (Dulera 100/5 Mcg), 2 PUFFS INH Q12 Nitroglycerin (Nitrostat), 0.4 MG UT PRN Omeprazole (Prilosec), 40 MG PO DAILY Polyethylene Glycol 3350 (Miralax), 1 TBS PO HS Prednisolone Acetate (Ophth) (Prednisolone Acetate), 1 DROPS OPL DAILY Psyllium (Metamucil), 2 TBS PO QAM Tadalafil (Cialis), 5 MG PO DAILY Valacyclovir Hcl (Valtrex), 1 TAB PO DAILY Scheduled PRN Acetaminophen (Tylenol), 1,000 MG PO TID PRN for Pain Albuterol Hfa (Ventolin Hfa), 2 PUFF INH Q4 PRN for Shortness of Breath Desloratadine (Clarinex), 5 MG PO DAILY PRN for ALLERGIES Review of Systems The patient denies palpitations, shortness of breath, dyspnea on exertion, cough , lower extremity swelling, sore throat, fevers, chills, sweats, weight change, fatigue, nausea, vomiting, diarrhea , constipation, abdominal pain, pelvic pain, blood in urine or stool, dysuria, urinary frequency or urgency, lightheadedness , dizziness, headache, memory loss, loss of consciousness, rash, abnormal bruising or bleeding, imbalance, focal or generalized weakness, numbness or tingling in arms or legs, generalized arthralgias or myalgias, back or neck pain, or night sweats. The review of systems is otherwise negative other than for that already noted above, and at least 10 systems have been reviewed. Physical Exam Vital Signs Date Time Temp Pulse Resp B/P (MAP) Pulse Ox O2 Delivery O2 Flow Rate FiO2 10/12/17 21:41 63 18 162/78 96 Room Air 10/12/17 20:51 66 18 179/70 97 Room Air 10/12/17 20:46 Room Air 10/12/17 20:46 93 Room Air 10/12/17 20:46 93 Room Air 10/12/17 20:44 65 10/12/17 19:27 36.7 70 22 182/78 97 Room Air The patient is awake, alert and oriented 3, well developed and well nourished, normocephalic and atraumatic, lying in bed and in no acute distress. HEENT--PERRL, EOMI, mucous membranes and oropharynx dry. Neck--supple. No JVD. No bruits. Thyroid normal, trachea midline, no adenopathy. Heart--normal S1 and S2. No murmurs, rubs or gallops. Lungs--clear bilaterally, no respiratory distress, no accessory muscle use. Abdomen--normal bowel sounds and soft. Nontender. Nondistended, no hernias or masses, and obese. Extremities--no cyanosis or clubbing. No edema. There are good distal pulses b/ l. Dermatologic--normal skin turgor, normal color, no abnormal lymph nodes, no rash. Neurologic--cranial nerves II through XII grossly intact. Rheumatologic--normal range of motion. Psychiatric--normal affect. Diagnostics Laboratory Results Results Past 24 Hours Test 10/12/17 19:47 10/12/17 22:43 Range/Units White Blood Count 5.48 4.8-10.8 K/uL Red Blood Count 4.37 4.7-6.1 M/uL Hemoglobin 13.1 14.0-18.0 g/dL Hematocrit 38.7 42-52 % Mean Corpuscular Volume 88.6 80-100 fL Mean Corpuscular Hemoglobin 30.0 25-34 pg Mean Corpuscular Hemoglobin Concent 33.9 32-36 g/dl Platelet Count 203 130-400 K/uL Mean Platelet Volume 9.0 7.4-10.4 fL Neutrophils (%) (Auto) 58.2 % Lymphocytes (%) (Auto) 25.4 % Monocytes (%) (Auto) 9.5 % Eosinophils (%) (Auto) 5.8 % Basophils (%) (Auto) 0.7 % Neutrophils # (Auto) 3.19 1.4-6.5 K/uL Lymphocytes # (Auto) 1.39 1.2-3.4 K/uL Monocytes # (Auto) 0.52 0.11-0.59 K/uL Eosinophils # (Auto) 0.32 0-0.5 K/uL Basophils # (Auto) 0.04 0-0.2 K/uL RDW Standard Deviation 43.5 36.4-46.3 fL RDW Coefficient of Variation 13.5 11.5-14.5 % Immature Granulocyte % (Auto) 0.4 % Immature Granulocyte # (Auto) 0.02 0.00-0.02 K/uL Prothrombin Time 10.4 9.0-12.0 SECONDS Prothromb Time International Ratio 1.0 0.9-1.1 Activated Partial Thromboplast Time 24.0 21.0-31.0 SECONDS Partial Thromboplastin Ratio 0.9 Sodium Level 142 136-145 mmol/L Potassium Level 4.1 3.5-5.1 mmol/L Chloride Level 108 98-107 mmol/L Carbon Dioxide Level 27 21-32 mmol/L Anion Gap 6.0 3-11 mmol/L Blood Urea Nitrogen 25 7-18 mg/dl Creatinine 1.23 0.60-1.40 mg/dl Est Creatinine Clear Calc Drug Dose 56.5 ml/min Estimated GFR () 64.3 Estimated GFR (Non- 55.5 BUN/Creatinine Ratio 20.4 10-20 Random Glucose 121 70-99 mg/dl Calcium Level 8.7 8.5-10.1 mg/dl Total Bilirubin 0.7 0.2-1 mg/dl Direct Bilirubin 0.2 0-0.2 mg/dl Aspartate Amino Transf (AST/SGOT) 27 15-37 U/L Alanine Aminotransferase (ALT/SGPT) 33 12-78 U/L Alkaline Phosphatase 106 45-117 U/L Total Creatine Kinase 84 39-308 U/L Creatine Kinase MB 2.9 0.5-3.6 ng/ml Creatine Kinase MB Ratio 3.5 0-3.0 Troponin I 0.335 0.315 0-0.045 ng/ml Total Protein 7.2 6.4-8.2 gm/dl Albumin 3.8 3.4-5.0 gm/dl Lipase 275 73-393 U/L Diagnostic Radiology Patient Name: CHARLEY BROWN Unit Number: [id number] Dictated: 10/12/172118 Transcribed: 10/12/172118 DEANNA Printed Date/Time: [~ rep prt dt]/[~ rep prt tm] [~ rep ct labl] - [~ rep ct ivnm] [facility] [place] [address] Dictated: 10/12/172118 Transcribed: 10/12/172118 [facility] Printed Date/Time: [~ rep prt dt]/[~ rep prt tm] [~ rep ct labl] - [~ rep ct ivnm] CHEST ONE VIEW PORTABLE HISTORY: Atypical CHEST PAIN COMPARISON: Chest 07/29/2017. FINDINGS: The heart remains borderline enlarged. Mild diffuse interstitial thickening, unchanged. No new focal lung consolidations. Retrocardiac density is consistent with a large hiatus hernia. This remains unchanged. No pleural effusions. No pneumothorax. IMPRESSION: No significant change compared to the prior study. No acute process. Large hiatus hernia. Electronically signed by: Spencer Snyder M.D. 10/12/2017 9:21 PM Dictated Date/Time: 10/12/2017 9:19 PM The status of this report is Signed. Draft = Not yet reviewed or approved by Radiologist. Signed = Reviewed and approved by Radiologist. <AttendingPhy></AttendingPhy> <FamilyPhy>Gio Angel M.D.</FamilyPhy> < PrimaryPhy>Gio Angel M.D.</PrimaryPhy> <UnitNumber>[id number]</UnitNumber > <VisitNumber>[id number]</VisitNumber> <PatientName>CHARLEY BROWN</ PatientName> <DateOfBirth>1935</DateOfBirth> <Location>[facility]</Location> < ServiceDate>10/12/17</ServiceDate> <MNE>ESINDI</MNE> <OrderingPhy>Garrett Cooper MD</OrderingPhy> <OrderingPhyMNE>f rep ord dr still</OrderingPhyMNE> < DictatingPhyMNE>f rep dict dr still</DictatingPhyMNE> <CCListMNE>f rep ct mne</ CCListMNE> <AdmittingPhyMNE>f pt admit dr still</AdmittingPhyMNE> <AttendingPhyMNE >f pt attend dr still</AttendingPhyMNE> <ConsultingPhyMNE>f pt consult dr still</ConsultingPhyMNE> <FamilyPhyMNE>f pt fam dr still</FamilyPhyMNE> <OtherPhyMNE>f pt other dr still</OtherPhyMNE> < PrimaryPhyMNE>f pt prim care dr still</PrimaryPhyMNE> <ReferringPhyMNE>f pt referring dr still</ReferringPhyMNE> EKG EKG shows normal sinus rhythm at 65 bpm, ST-T wave changes in leads V3 through V6, I and aVL, suggestive of ischemia, minimally improved on repeat. Impression Assessment and Plan NSTEMI/new EKG changes showing lateral ischemia/recent TX in July 2017 with cardiac catheterization and multiple stent placement-- The patient will be admitted to telemetry for serial cardiac enzymes, serial EKG's, cardiac rhythm monitoring and a 2-D echocardiogram with Dopplers. Continue aspirin 81 mg daily, clopidogrel 75 mg daily, Sorbsan daily, metoprolol succinate ER 50 mg daily, nitroglycerin sublingual as needed. Heparin IV standard dose without bolus. Nitropaste 1" ACW every 6 hours. Consult cardiology. Hyperlipidemia--continue atorvastatin 40 mg daily BPH--continue Uroxatrol, and dutasteride. Hold Cialis to the possible hypotension Hypothyroidism-- Continue levothyroxine sodium 100 mcg p.o. daily Anxiety with depression--continue duloxetine 60 mg daily and gabapentin at bedtime. COPD--continue Dulera 100/5 2 puffs every 12 hours GERD-- Change omeprazole to pantoprazole per formulary Prophylaxis-- Continue Valtrex daily Nutraceuticals--continue his outpatient Level of Care Telemetry Advanced Directives Existing Advance Directive: No Existing Living Will: No Existing Power of [employer]erial [employer] Pilot: No Resuscitation Status FULL RESUSCITATION VTE Prophylaxis VTE Risk Assessment Done? Y/N: Yes Risk Level: Moderate Given or contraindicated: Other Anticoagulation Social Service Consult None Apply
[2017-10-12] MEDS ORDERED: ONDANSETRON 8MG OD TAB PO PRN (23:30)
[2017-10-13] VITALS (8 sets, daily range): BP systolic 145–180; BP diastolic 58–86; PULSE 59–69; TEMP 36.6–37.1; O2SAT 94–96; Ht 177.8 cm; Wt 99.7 kg
[2017-10-13] MEDS ORDERED: NITROGLYCERIN 2% OINTMENT 30GM TUBE EXT ONE (01:16)
[2017-10-13] MEDS: NSS + 20MEQ KCL 1000ML 1,000 ML IV SCH ×2 (01:18→15:06)
[2017-10-13] MEDS: NITROGLYCERIN 2% OINTMENT 30GM TUBE EXT SCH ×5 (01:18→23:22)
[2017-10-13 05:33] LABS: BASO % 0.4 %; BASO ABS # 0.02 K/uL (0-0.2); EOS % 5.4 %; EOS ABS # 0.28 K/uL (0-0.5); HEMATOCRIT 33.3 % (42-52); HEMOGLOBIN 11.6 g/dL (14.0-18.0); IG# 0.01 K/uL (0.00-0.02); LYMPH % 32.8 %; LYMPH ABS # 1.69 K/uL (1.2-3.4); MEAN CELL VOLUME 87.9 fL (80-100); MEAN CORPUSCULAR HEMOGLOBIN 30.6 pg (25-34); MEAN CORPUSCULAR HGB CONC 34.8 g/dl (32-36); MEAN PLATELET VOLUME 8.4 fL (7.4-10.4); MONO % 11.2 %; MONO ABS # 0.58 K/uL (0.11-0.59); NEUT ABS # 2.58 K/uL (1.4-6.5); PLATELET COUNT 155 K/uL (130-400); RED CELL DISTRIBUTION WIDTH CV 13.5 % (11.5-14.5); RED CELL DISTRIBUTION WIDTH SD 43.1 fL (36.4-46.3); WHITE BLOOD COUNT 5.16 K/uL (4.8-10.8)
[2017-10-13 05:50] LABS: INR 1.1 (0.9-1.1)
[2017-10-13 05:53] LABS: PTT PATIENT 61.8 SECONDS (21.0-31.0)
[2017-10-13 06:00] LABS: CALCIUM 8.2 mg/dl (8.5-10.1); CREATININE 0.93 mg/dl (0.60-1.40); POTASSIUM 4.2 mmol/L (3.5-5.1)
[2017-10-13] MEDS ORDERED: ALBUTEROL HFA 8 GM INHALER INH PRN (06:00)
[2017-10-13] MEDS: LEVOTHYROXINE 100 MCG TAB PO SCH (07:03)
[2017-10-13 08:33] LABS: CKMB 2.4 ng/ml (0.5-3.6)
[2017-10-13] MEDS: PrednisoLONE ACET 1% OP SUSP 5 ML BTL OPL SCH (08:59)
[2017-10-13] MEDS: CALCIUM 600MG + VIT D 400 IU TAB PO SCH (09:00)
[2017-10-13] MEDS: LOSARTAN POTASSIUM 50 MG TAB PO SCH (09:00)
[2017-10-13] MEDS: BUDESONIDE/FORMOTEROL FUMARATE 160/4.5 60 PUFFS/INHALER INH SCH ×2 (09:00→21:00)
[2017-10-13] MEDS: DULOXETINE HCL 60 MG CAP PO SCH (09:01)
[2017-10-13] MEDS: ATORVASTATIN 20 MG TAB PO SCH (09:02)
[2017-10-13] MEDS: ASPIRIN 81 MG ECTAB PO SCH (09:02)
[2017-10-13] MEDS: PSYLLIUM 58.6% PWD PACK S\\F PO SCH (09:03)
[2017-10-13] MEDS: NEPHROCAPS PO SCH (09:03)
[2017-10-13] MEDS: CLOPIDOGREL BISULFATE 75 MG TAB PO SCH (09:03)
[2017-10-13] MEDS: PANTOprazole SOD 40 MG TAB PO SCH (09:03)
[2017-10-13] MEDS: METOPROLOL SUCC 50MG EXT REL TAB PO SCH (09:04)
[2017-10-13] MEDS: CHOLECALCIFEROL 1000 INTER.UNIT TAB PO SCH (09:05)
--- NOTE | 2017-10-13 10:49 | Hospitalist Progress Note ---
Hospitalist Progress Note Date of Service Oct 13, 2017. Subjective Pt evaluation today including: conversation w/ patient, physical exam, chart review, lab review, review of studies, review of inpatient medication list Pain: 2-3 out of 10 chest discomfort PO Intake: Tolerating PO diet Voiding: no voiding problems The patient complains of a 2 or 3 out of 10 chest discomfort, which he characterizes as a tingling sensation. He states this is improved compared to yesterday. He denies any other associated symptoms and is otherwise feeling well. The patient denies fevers, chills, sweats, palpitations, claudication, cough, wheezing, shortness of breath, nausea, vomiting, abdominal pain, dysuria , hematuria, urinary retention, paralysis, weakness, numbness and tingling. Additional Comments: See HPI for pertinent positives and negatives. All other systems reviewed and negative. Objective Vital Signs Date Time Temp Pulse Resp B/P (MAP) Pulse Ox O2 Delivery O2 Flow Rate FiO2 10/13/17 08:00 Room Air 10/13/17 07:17 37.1 59 16 158/72 (100) 95 Room Air 10/13/17 04:00 Room Air 10/13/17 03:38 36.9 59 20 153/76 (101) 95 Room Air 10/13/17 01:05 36.6 60 16 179/82 96 Room Air 10/13/17 00:34 62 18 96 10/12/17 23:51 60 18 170/87 96 Room Air 10/12/17 21:41 63 18 162/78 96 Room Air 10/12/17 20:51 66 18 179/70 97 Room Air 10/12/17 20:46 Room Air 10/12/17 20:46 93 Room Air 10/12/17 20:46 93 Room Air 10/12/17 20:44 65 10/12/17 19:27 36.7 70 22 182/78 97 Room Air Physical Exam Notes: General appearance: +Obese. Well-developed, well-nourished, no apparent distress Head: Normocephalic, atraumatic Eyes: Normal inspection, PERRL, EOMI ENT: Normal ENT inspection, hearing grossly normal, pharynx normal Neck: Supple, no JVD, trachea midline Respiratory/Chest: Lungs clear to auscultation, normal breath sounds, no respiratory distress Cardiovascular: Regular rate & rhythm, no gallop, no murmur Abdomen/GI: Normal bowel sounds, non-tender, soft Extremities/Musculoskeletal: +Trace pitting edema. Normal inspection, no calf tenderness Neurological/Psych: Alert, normal mood/affect, oriented x 3 Skin: Normal color, warm/dry, no rash Laboratory Results Last 24 Hours Test 10/12/17 19:47 10/12/17 22:43 10/13/17 05:19 10/13/17 07:28 White Blood Count 5.48 K/uL 5.16 K/uL Red Blood Count 4.37 M/uL 3.79 M/uL Hemoglobin 13.1 g/dL 11.6 g/dL Hematocrit 38.7 % 33.3 % Mean Corpuscular Volume 88.6 fL 87.9 fL Mean Corpuscular Hemoglobin 30.0 pg 30.6 pg Mean Corpuscular Hemoglobin Concent 33.9 g/dl 34.8 g/dl Platelet Count 203 K/uL 155 K/uL Mean Platelet Volume 9.0 fL 8.4 fL Neutrophils (%) (Auto) 58.2 % 50.0 % Lymphocytes (%) (Auto) 25.4 % 32.8 % Monocytes (%) (Auto) 9.5 % 11.2 % Eosinophils (%) (Auto) 5.8 % 5.4 % Basophils (%) (Auto) 0.7 % 0.4 % Neutrophils # (Auto) 3.19 K/uL 2.58 K/uL Lymphocytes # (Auto) 1.39 K/uL 1.69 K/uL Monocytes # (Auto) 0.52 K/uL 0.58 K/uL Eosinophils # (Auto) 0.32 K/uL 0.28 K/uL Basophils # (Auto) 0.04 K/uL 0.02 K/uL RDW Standard Deviation 43.5 fL 43.1 fL RDW Coefficient of Variation 13.5 % 13.5 % Immature Granulocyte % (Auto) 0.4 % 0.2 % Immature Granulocyte # (Auto) 0.02 K/uL 0.01 K/uL Prothrombin Time 10.4 SECONDS 11.1 SECONDS Prothromb Time International Ratio 1.0 1.1 Activated Partial Thromboplast Time 24.0 SECONDS 61.8 SECONDS Partial Thromboplastin Ratio 0.9 2.4 Sodium Level 142 mmol/L 141 mmol/L Potassium Level 4.1 mmol/L 4.2 mmol/L Chloride Level 108 mmol/L 110 mmol/L Carbon Dioxide Level 27 mmol/L 24 mmol/L Anion Gap 6.0 mmol/L 7.0 mmol/L Blood Urea Nitrogen 25 mg/dl 23 mg/dl Creatinine 1.23 mg/dl 0.93 mg/dl Est Creatinine Clear Calc Drug Dose 56.5 ml/min 76.3 ml/min Estimated GFR () 64.3 90.2 Estimated GFR (Non- 55.5 77.8 BUN/Creatinine Ratio 20.4 24.3 Random Glucose 121 mg/dl 101 mg/dl Calcium Level 8.7 mg/dl 8.2 mg/dl Total Bilirubin 0.7 mg/dl Direct Bilirubin 0.2 mg/dl Aspartate Amino Transf (AST/SGOT) 27 U/L Alanine Aminotransferase (ALT/SGPT) 33 U/L Alkaline Phosphatase 106 U/L Total Creatine Kinase 84 U/L 55 U/L Creatine Kinase MB 2.9 ng/ml 2.4 ng/ml Creatine Kinase MB Ratio 3.5 4.4 Troponin I 0.335 ng/ml 0.315 ng/ml 0.300 ng/ml Total Protein 7.2 gm/dl Albumin 3.8 gm/dl Lipase 275 U/L Magnesium Level 2.3 mg/dl Assessment and Plan 81 y/o male with a history of HTN, HLD, recent NSTEMI 07/29/17, h/o CVA, COPD, hypothyroidism, depression, h/o herpes zoster ophthalmicus w/postherpetic neuralgia, BPH and GERD who presented to the ED on 10/12 chest pain and lightheadedness. Chest pain, NSTEMI--improving -Admitted to telemetry. No acute events overnight. Pt in sinus rhythm with HR in the 60s. 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 Ultimately received 3 stents instead -Continue ASA, Plavix, Toprol XL 50 mg PO qd, losartan 50 mg PO qd, Lipitor 40 mg PO qd COPD--stable -Continue Dulera 2 puffs inh BID, albuterol prn Hypothyroidism -TSH WNL 08/10/17 -Continue Synthroid 100 mcg PO qd Depression -Continue duloxetine 60 mg PO qd H/o herpes zoster ophthalmicus w/postherpetic neuralgia -Continue valacyclovir 500 mg PO qd, gabapentin 300 mg PO hs, and Prednisolone drops BPH, overactive bladder -Continue alfuzosin 10 mg PO hs, dutasteride 0.5 mg PO qd GERD -Prilosec converted to Protonix while inpt DVT prophylaxis -Heparin drip Code Status -Level I, FULL RESUSCITATION STATUS
[2017-10-13 12:12] LABS: HEMOGLOBIN A1C 5.7 % (4.5-5.6)
--- NOTE | 2017-10-13 13:44 | Cardiology Consultation ---
Cardiology Consultation Date of Consultation: Oct 13, 2017. Requesting Physician: Dr. Blank Reason for Consultation: Chest pain, elevated Troponin Pt evaluation today including: conversation w/ patient, physical exam, lab review, review of studies, review of inpatient medication list History of Present Illness This is a 81-year-old gentleman who was having no difficulty with exertion until 12/17/2016. At that time he developed a febrile illness, and he presented to the emergency room on 12/20/2016 with continued symptoms. He was hospitalized and had a difficult course due to apparent infection with ehrlichia from a tick bite. That course was complicated by multiorgan involvement including renal for which he was on dialysis temporarily, as well as apparent cardiac involvement with an elevated troponin. His troponin peaked at 18.5 on 12/21/2016 and 9 days later was 0.63. He had no chest discomfort and his echocardiogram done on 12/21/2016 showed mild left ventricular hypertrophy with hyperdynamic left ventricular function. The echo was repeated on 2016 with similar findings. Of note, he has had stress tests in the past, most recently a treadmill stress test on 09/04/2015 where he achieved 86% of his predicted maximal heart rate and had no evidence of ischemia. He recovered from that episode and was doing well (other than a bout of pneumonia) when he developed substernal chest pressure, presented to his physician's office on 07/29/2017 where an electrocardiogram showed ischemia and he was sent to the emergency room. Catheterization showed significant disease in the left system, it was amenable to stent placement but surgical treatment was felt to be a better option and he was referred to [facility]. At [place] for a number of reasons (including his preference) stent placement in the LAD and circumflex was performed. He was discharged on 08/04/2017. He was also identified as having a 70% right carotid artery stenosis. He had been doing well, he was increasing his activity level including going to [employer] and not having discomfort until October 12, 2017. At [employer] he felt a little bit of twinge in his left chest with activity, it was not bad so he went home and then later that day he developed more significant left precordial chest discomfort. He presented to the emergency room where he was found to have anterolateral T-wave inversion and his initial troponin was elevated to 0.335. With treatment his discomfort has resolved. At the time of my evaluation today he is feeling well, he has been inactive but is not having chest discomfort or shortness of breath. He has continued to take clopidogrel and aspirin. 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 Social History Smoking Status: Former Smoker History of Alcohol Use: Yes (6 BEERS/ WEEK) Review of Systems Constitutional: No fever, No weight loss, No weakness Respiratory: No cough, No wheezing, No shortness of breath, No dyspnea on exertion Cardiac: + see HPI, + chest pain, No orthopnea, No PND, No edema, No palpitations Abdomen: No pain, No nausea, No vomiting, No diarrhea, No GI bleeding Male : No urinary frequency, No nocturia more than once/night, No slowing stream, No sexual dysfunction Neurologic: No paralysis, No weakness, No numbness/tingling, No balance problems Heme: No abnormal bleeding/bruising, No clotting problems Endo: No fatigue Skin: No problem reported All Other Systems: Reviewed and Negative Allergies Coded Allergies: Erythromycin (Verified Allergy, Intermediate, THROAT BEGAN TO SWELL SHUT, 10/12/17) PT Atorvastatin (Verified Adverse Reaction, Intermediate, MYALGIAS, 10/12/17) PT/ALLSCRIPTS Lisinopril (Verified Adverse Reaction, Intermediate, COUGH, 10/12/17) Medications Current Inpatient Medications Medications (Trade) Dose Ordered Sig/Sheree Route Start Time Stop Time Status Last Admin Dose Admin Potassium Chloride/Sodium Chloride 1,000 ml @ 75 mls/hr [id number] IV 10/13/17 01:15 11/12/17 01:14 10/13/17 01:18 75 MLS/HR Acetaminophen (Tylenol Tab) 650 mg Q4H PRN PO 10/12/17 23:00 11/11/17 22:59 Al Hydrox/Mg Hydrox/Simethicone (Maalox Max Susp) 15 ml Q4H PRN PO 10/12/17 23:00 11/11/17 22:59 Magnesium Hydroxide (Milk Of Magnesia Susp) 30 ml Q12H PRN PO 10/12/17 23:00 11/11/17 22:59 Nitroglycerin (Nitrostat Tab) 0.4 mg UD PRN SL 10/12/17 23:00 11/11/17 22:59 Polyethylene (Miralax Powder Packet) 17 gm DAILY PRN PO 10/12/17 23:00 11/11/17 22:59 Ondansetron HCl (Zofran Odt) 8 mg Q6H PRN PO 10/12/17 23:30 11/11/17 23:29 Nitroglycerin (Nitroglycerin 2% Oint) 1 inch Q6H EXT 10/13/17 06:00 11/12/17 05:59 10/13/17 11:49 1 INCH Heparin Sodium/ Dextrose 500 ml @ 30 mls/hr [id number] PRN IV 10/12/17 23:45 11/11/17 23:44 Albuterol (Ventolin Hfa Inhaler) 2 puffs Q4 PRN INH 10/13/17 06:00 11/12/17 05:59 Alfuzosin HCl (Uroxatral Tab) 10 mg HS PO 10/13/17 21:00 11/12/17 20:59 Aspirin (Ecotrin Tab) 81 mg DAILY PO 10/13/17 09:00 11/12/17 08:59 10/13/17 09:02 81 MG Atorvastatin Calcium (Lipitor Tab) 40 mg DAILY PO 10/13/17 09:00 11/12/17 08:59 10/13/17 09:02 40 MG Vitamin B Complex/ Vit C/Folic Acid (Nephrocaps) 1 cap QAM PO 10/13/17 09:00 11/12/17 08:59 10/13/17 09:03 1 CAP Calcium/Vitamin D (Caltrate Plus Tab) 1 tab DAILY PO 10/13/17 09:00 11/12/17 08:59 10/13/17 09:00 1 TAB Cholecalciferol (Vitamin D Tab) 1,000 inter.unit DAILY PO 10/13/17 09:00 11/12/17 08:59 10/13/17 09:05 1,000 INTER.UNIT Clopidogrel Bisulfate (plAVix TAB) 75 mg DAILY PO 10/13/17 09:00 11/12/17 08:59 10/13/17 09:03 75 MG Duloxetine HCl (Cymbalta Cap) 60 mg DAILY PO 10/13/17 09:00 11/12/17 08:59 10/13/17 09:01 60 MG Gabapentin (Neurontin Cap) 300 mg HS PO 10/13/17 21:00 11/12/17 20:59 Levothyroxine Sodium (Synthroid Tab) 100 mcg DAILYBB PO 10/13/17 06:30 11/12/17 06:29 10/13/17 07:03 100 MCG Losartan Potassium (coZAAR TAB) 50 mg DAILY PO 10/13/17 09:00 11/12/17 08:59 10/13/17 09:00 50 MG Metoprolol Succinate (Toprol Xl Tab) 50 mg DAILY PO 10/13/17 09:00 11/12/17 08:59 10/13/17 09:04 50 MG Polyethylene (Miralax Powder Packet) 17 gm HS PO 10/13/17 21:00 11/12/17 20:59 Prednisolone Acetate (Pred Forte 1% Oph Susp) 1 drops DAILY OPL 10/13/17 09:00 11/12/17 08:59 10/13/17 08:59 1 DROPS Valacyclovir HCl (Valtrex Tab) 500 mg DAILY PO 10/13/17 09:00 11/12/17 08:59 10/13/17 09:04 500 MG Miscellaneous Information (Order Awaiting Action) 1 ea QS N/A 10/13/17 08:00 11/12/17 07:59 Psyllium Hydrophilic Mucilloid (Metamucil Powder) 1 pkt QAM PO 10/13/17 09:00 11/12/17 08:59 10/13/17 09:03 1 PKT Budesonide/ Formoterol Fumarate (Symbicort 160/ 4.5 Inh) 2 puffs BID INH 10/13/17 09:00 11/12/17 08:59 Pantoprazole Sodium (Protonix Tab) 40 mg QAM PO 10/13/17 09:00 11/12/17 08:59 10/13/17 09:03 40 MG Physical Exam Vital Signs Past 12 Hours Date Time Temp Pulse Resp B/P (MAP) Pulse Ox O2 Delivery O2 Flow Rate FiO2 10/13/17 12:00 Room Air 10/13/17 11:01 36.8 61 18 149/62 (91) 94 Room Air 10/13/17 08:00 Room Air 10/13/17 07:17 37.1 59 16 158/72 (100) 95 Room Air 10/13/17 04:00 Room Air 10/13/17 03:38 36.9 59 20 153/76 (101) 95 Room Air Constitutional: General Apperance: heathly-appearing Level of Distress: NAD Psychiatric: Mental Status: active & alert Head: normocephalic Eyes: EOM: EOMI ENMT: normal ENT inspection, hearing grossly normal Neck: supple, no masses Lungs: Respiratory effort: no dyspnea, good air movement Auscultation: breath sounds normal, no wheezing Cardiovascular: Heart Auscultation: RRR, no murmurs, no rubs, no gallops Peripheral Pulses: Bruits: none appreciated Abdomen: Bowel Sounds: normal Inspection & Palpation: soft, no tenderness, guarding & rebound, no masses Musculoskeletal: normal strength (5/5 throughout) Extremities: no edema Neurologic: Cranial Nerves: grossly intact Sensation: grossly intact Data Laboratory Results: Last 24 Hours Test 10/12/17 19:47 10/12/17 22:43 10/13/17 05:19 10/13/17 07:28 White Blood Count 5.48 K/uL 5.16 K/uL Red Blood Count 4.37 M/uL 3.79 M/uL Hemoglobin 13.1 g/dL 11.6 g/dL Hematocrit 38.7 % 33.3 % Mean Corpuscular Volume 88.6 fL 87.9 fL Mean Corpuscular Hemoglobin 30.0 pg 30.6 pg Mean Corpuscular Hemoglobin Concent 33.9 g/dl 34.8 g/dl Platelet Count 203 K/uL 155 K/uL Mean Platelet Volume 9.0 fL 8.4 fL Neutrophils (%) (Auto) 58.2 % 50.0 % Lymphocytes (%) (Auto) 25.4 % 32.8 % Monocytes (%) (Auto) 9.5 % 11.2 % Eosinophils (%) (Auto) 5.8 % 5.4 % Basophils (%) (Auto) 0.7 % 0.4 % Neutrophils # (Auto) 3.19 K/uL 2.58 K/uL Lymphocytes # (Auto) 1.39 K/uL 1.69 K/uL Monocytes # (Auto) 0.52 K/uL 0.58 K/uL Eosinophils # (Auto) 0.32 K/uL 0.28 K/uL Basophils # (Auto) 0.04 K/uL 0.02 K/uL RDW Standard Deviation 43.5 fL 43.1 fL RDW Coefficient of Variation 13.5 % 13.5 % Immature Granulocyte % (Auto) 0.4 % 0.2 % Immature Granulocyte # (Auto) 0.02 K/uL 0.01 K/uL Prothrombin Time 10.4 SECONDS 11.1 SECONDS Prothromb Time International Ratio 1.0 1.1 Activated Partial Thromboplast Time 24.0 SECONDS 61.8 SECONDS Partial Thromboplastin Ratio 0.9 2.4 Sodium Level 142 mmol/L 141 mmol/L Potassium Level 4.1 mmol/L 4.2 mmol/L Chloride Level 108 mmol/L 110 mmol/L Carbon Dioxide Level 27 mmol/L 24 mmol/L Anion Gap 6.0 mmol/L 7.0 mmol/L Blood Urea Nitrogen 25 mg/dl 23 mg/dl Creatinine 1.23 mg/dl 0.93 mg/dl Est Creatinine Clear Calc Drug Dose 56.5 ml/min 76.3 ml/min Estimated GFR () 64.3 90.2 Estimated GFR (Non- 55.5 77.8 BUN/Creatinine Ratio 20.4 24.3 Random Glucose 121 mg/dl 101 mg/dl Calcium Level 8.7 mg/dl 8.2 mg/dl Total Bilirubin 0.7 mg/dl Direct Bilirubin 0.2 mg/dl Aspartate Amino Transf (AST/SGOT) 27 U/L Alanine Aminotransferase (ALT/SGPT) 33 U/L Alkaline Phosphatase 106 U/L Total Creatine Kinase 84 U/L 55 U/L Creatine Kinase MB 2.9 ng/ml 2.4 ng/ml Creatine Kinase MB Ratio 3.5 4.4 Troponin I 0.335 ng/ml 0.315 ng/ml 0.300 ng/ml Total Protein 7.2 gm/dl Albumin 3.8 gm/dl Lipase 275 U/L Estimated Average Glucose 117 mg/dl Hemoglobin A1c 5.7 % Magnesium Level 2.3 mg/dl Triglycerides Level 77 mg/dl Cholesterol Level 101 mg/dl HDL Cholesterol 42 mg/dl LDL Cholesterol, Calculated 44 mg/dl VLDL Cholesterol, Calculated 15 mg/dl Cholesterol/HDL Ratio 2.4 EKG: His admission electrocardiogram shows sinus rhythm with anterolateral T- wave inversion. These T-wave inversions are new compared to shortly after his myocardial infarction in July, they have not progressed much this hospitalization. Telemetry reviewed: sinus rhythm, no significant abnormality Assessment & Plan 1. Chest discomfort: Though his symptoms are little bit different than they were when he presented with his myocardial infarction the discomfort is worrisome, it is also associated with electrocardiographic changes and enzyme abnormalities. I think it is most likely due to coronary ischemia. 2. Non-ST segment myocardial infarction: He appears to be having a non-ST segment elevation myocardial infarction with electrocardiographic changes and enzyme elevation. The enzyme elevation is not severe and is dropping, however this along with the electric radiographic changes and his symptoms suggest that he may have active ischemia when he came in. It was not strictly exertional. On electrocardiography it appears to be in a distribution where he had a stent placed. I think the safest option would be to proceed with catheterization and possible intervention. I had planned on doing that today, however due to the weather the helicopters or not flying and I do not think it is urgent therefore I will plan on doing this tomorrow morning. I have talked to my partner, Dr. Lara, we will plan on doing the case. The patient is agreeable. Thank you for allowing me to participate in his care.
[2017-10-13] MEDS: HEPARIN 25,000 UNIT/500ML D5W 500 ML IV PRN (15:06)
[2017-10-13 16:26] LABS: CKMB 2.4 ng/ml (0.5-3.6)
[2017-10-13] MEDS: ALFUZosin TAB 10 MG TAB PO SCH (21:07)
[2017-10-13] MEDS: POLYETHYLENE (MIRALAX) 17 GM PACK PO SCH (21:08)
[2017-10-13] MEDS: GABAPENTIN 300 MG CAP PO SCH (21:08)
[2017-10-13] MEDS ORDERED: NURSING VERBAL MED ORDER ONE (21:30)
[2017-10-14] VITALS (13 sets, daily range): BP systolic 121–174; BP diastolic 65–80; PULSE 63–84; TEMP 36.5–36.8; O2SAT 93–98
[2017-10-14] MEDS ORDERED: NITROGLYCERIN 2% OINTMENT 30GM TUBE EXT SCH (00:15)
[2017-10-14] MEDS: NSS + 20MEQ KCL 1000ML 1,000 ML IV SCH (03:27)
[2017-10-14] MEDS: LEVOTHYROXINE 100 MCG TAB PO SCH (05:47)
[2017-10-14] MEDS: NITROGLYCERIN 2% OINTMENT 30GM TUBE EXT SCH ×4 (05:49→23:53)
[2017-10-14] MEDS: HEPARIN 25,000 UNIT/500ML D5W 500 ML IV PRN ×2 (07:28→09:33)
[2017-10-14] MEDS: METOPROLOL SUCC 50MG EXT REL TAB PO SCH (07:29)
[2017-10-14] MEDS: LOSARTAN POTASSIUM 50 MG TAB PO SCH (07:29)
[2017-10-14] MEDS: PANTOprazole SOD 40 MG TAB PO SCH (07:30)
[2017-10-14] MEDS: DULOXETINE HCL 60 MG CAP PO SCH (07:30)
[2017-10-14] MEDS: ASPIRIN 81 MG ECTAB PO SCH (07:30)
[2017-10-14] MEDS: CHOLECALCIFEROL 1000 INTER.UNIT TAB PO SCH (07:30)
[2017-10-14] MEDS: NEPHROCAPS PO SCH (07:30)
[2017-10-14] MEDS: CLOPIDOGREL BISULFATE 75 MG TAB PO SCH (07:30)
[2017-10-14] MEDS: PSYLLIUM 58.6% PWD PACK S\\F PO SCH (07:30)
[2017-10-14] MEDS: BUDESONIDE/FORMOTEROL FUMARATE 160/4.5 60 PUFFS/INHALER INH SCH ×2 (07:31→20:07)
[2017-10-14] MEDS: PrednisoLONE ACET 1% OP SUSP 5 ML BTL OPL SCH (07:31)
[2017-10-14] MEDS: ATORVASTATIN 20 MG TAB PO SCH (07:31)
[2017-10-14] MEDS: CALCIUM 600MG + VIT D 400 IU TAB PO SCH (07:31)
[2017-10-14 07:53] LABS: BASO % 0.3 %; BASO ABS # 0.02 K/uL (0-0.2); EOS % 3.2 %; HEMATOCRIT 32.3 % (42-52); HEMOGLOBIN 10.9 g/dL (14.0-18.0); IG# 0.01 K/uL (0.00-0.02); LYMPH % 20.6 %; LYMPH ABS # 1.29 K/uL (1.2-3.4); MEAN CORPUSCULAR HEMOGLOBIN 29.7 pg (25-34); MEAN CORPUSCULAR HGB CONC 33.7 g/dl (32-36); MEAN PLATELET VOLUME 9.1 fL (7.4-10.4); MONO % 12.6 %; MONO ABS # 0.79 K/uL (0.11-0.59); NEUT % 63.1 %; NEUT ABS # 3.94 K/uL (1.4-6.5); PLATELET COUNT 159 K/uL (130-400); RED CELL DISTRIBUTION WIDTH CV 13.6 % (11.5-14.5); RED CELL DISTRIBUTION WIDTH SD 43.6 fL (36.4-46.3); WHITE BLOOD COUNT 6.25 K/uL (4.8-10.8)
[2017-10-14 08:12] LABS: INR 1.1 (0.9-1.1)
[2017-10-14 08:19] LABS: PTT PATIENT 127.2 SECONDS (21.0-31.0)
[2017-10-14 08:21] LABS: CALCIUM 8.5 mg/dl (8.5-10.1); CREATININE 0.95 mg/dl (0.60-1.40)
--- NOTE | 2017-10-14 08:42 | Cardiology Follow-Up ---
Subjective Date of Service: Oct 14, 2017. Pt evaluation today including: conversation w/ patient, physical exam, lab review, review of studies, review of inpatient medication list History of Present Illness This is a 81-year-old gentleman who was having no difficulty with exertion until 12/17/2016. At that time he developed a febrile illness, and he presented to the emergency room on 12/20/2016 with continued symptoms. He was hospitalized and had a difficult course due to apparent infection with ehrlichia from a tick bite. That course was complicated by multiorgan involvement including renal for which he was on dialysis temporarily, as well as apparent cardiac involvement with an elevated troponin. His troponin peaked at 18.5 on 12/21/2016 and 9 days later was 0.63. He had no chest discomfort and his echocardiogram done on 12/21/2016 showed mild left ventricular hypertrophy with hyperdynamic left ventricular function. The echo was repeated on 2016 with similar findings. Of note, he has had stress tests in the past, most recently a treadmill stress test on 09/04/2015 where he achieved 86% of his predicted maximal heart rate and had no evidence of ischemia. He recovered from that episode and was doing well (other than a bout of pneumonia) when he developed substernal chest pressure, presented to his physician's office on 07/29/2017 where an electrocardiogram showed ischemia and he was sent to the emergency room. Catheterization showed significant disease in the left system, it was amenable to stent placement but surgical treatment was felt to be a better option and he was referred to [facility]. At [place] for a number of reasons (including his preference) stent placement in the LAD and circumflex was performed. He was discharged on 08/04/2017. He was also identified as having a 70% right carotid artery stenosis. He had been doing well, he was increasing his activity level including going to [employer] and not having discomfort until October 12, 2017. At [employer] he felt a little bit of twinge in his left chest with activity, it was not bad so he went home and then later that day he developed more significant left precordial chest discomfort. He presented to the emergency room where he was found to have anterolateral T-wave inversion and his initial troponin was elevated to 0.335. With treatment his discomfort has resolved. Currently he is feeling quite well, he is having a little bit of residual discomfort but clearly improved. No other complaints. Social History Smoking Status: Former Smoker History of Alcohol Use: Yes (6 BEERS/ WEEK) Review of Systems Respiratory: No cough, No wheezing, No shortness of breath, No dyspnea on exertion Cardiac: + see HPI, + chest pain, No orthopnea, No PND, No edema, No palpitations Medications Cardiovascular: Item Value Date Time Aspirin 81 mg 10/13/17 0900 (Ecotrin Tab) DAILY/PO 10/14/17 0730 Atorvastatin 40 mg 10/13/17 0900 Calcium DAILY/PO 10/14/17 0731 (Lipitor Tab) Clopidogrel 75 mg 10/13/17 0900 Bisulfate DAILY/PO 10/14/17 0730 (plAVix TAB) Losartan Potassium 50 mg 10/13/17 0900 (coZAAR TAB) DAILY/PO 10/14/17 0729 Metoprolol 50 mg 10/13/17 0900 Succinate DAILY/PO 10/14/17 0729 (Toprol Xl Tab) Objective Vital Signs Past 12 Hours Date Time Temp Pulse Resp B/P (MAP) Pulse Ox O2 Delivery O2 Flow Rate FiO2 10/14/17 07:09 36.5 84 19 153/67 (95) 93 Room Air 10/14/17 04:36 36.5 75 16 164/70 (101) 93 Room Air 10/14/17 04:00 95 Room Air 10/13/17 23:59 37.0 69 19 180/76 (110) 96 Room Air 173/86 (115) 10/13/17 23:59 95 Room Air Last Recorded Weight-Kilograms: 98.700 Physical Exam Constitutional: General Apperance: heathly-appearing Level of Distress: NAD Lungs: Respiratory effort: no dyspnea, good air movement Auscultation: breath sounds normal, no wheezing Cardiovascular: Heart Auscultation: RRR, no murmurs, no rubs, no gallops Peripheral Pulses: Bruits: none appreciated Extremities: no edema Data Laboratory Results: Last 24 Hours Test 10/13/17 15:23 10/14/17 07:01 Total Creatine Kinase 59 U/L Creatine Kinase MB 2.4 ng/ml Creatine Kinase MB Ratio 4.1 Troponin I 0.295 ng/ml White Blood Count 6.25 K/uL Red Blood Count 3.67 M/uL Hemoglobin 10.9 g/dL Hematocrit 32.3 % Mean Corpuscular Volume 88.0 fL Mean Corpuscular Hemoglobin 29.7 pg Mean Corpuscular Hemoglobin Concent 33.7 g/dl Platelet Count 159 K/uL Mean Platelet Volume 9.1 fL Neutrophils (%) (Auto) 63.1 % Lymphocytes (%) (Auto) 20.6 % Monocytes (%) (Auto) 12.6 % Eosinophils (%) (Auto) 3.2 % Basophils (%) (Auto) 0.3 % Neutrophils # (Auto) 3.94 K/uL Lymphocytes # (Auto) 1.29 K/uL Monocytes # (Auto) 0.79 K/uL Eosinophils # (Auto) 0.20 K/uL Basophils # (Auto) 0.02 K/uL RDW Standard Deviation 43.6 fL RDW Coefficient of Variation 13.6 % Immature Granulocyte % (Auto) 0.2 % Immature Granulocyte # (Auto) 0.01 K/uL Prothrombin Time 11.4 SECONDS Prothromb Time International Ratio 1.1 Activated Partial Thromboplast Time 127.2 SECONDS Partial Thromboplastin Ratio 4.9 Sodium Level 140 mmol/L Potassium Level 4.0 mmol/L Chloride Level 108 mmol/L Carbon Dioxide Level 24 mmol/L Anion Gap 8.0 mmol/L Blood Urea Nitrogen 18 mg/dl Creatinine 0.95 mg/dl Est Creatinine Clear Calc Drug Dose 74.3 ml/min Estimated GFR () 87.9 Estimated GFR (Non- 75.8 BUN/Creatinine Ratio 18.4 Random Glucose 109 mg/dl Calcium Level 8.5 mg/dl Magnesium Level 2.1 mg/dl EKG: Today's echocardiogram shows sinus rhythm with some inferolateral ST-T abnormalities which are clearly improved from the prior several days Telemetry reviewed: Sinus rhythm, no significant arrhythmia Assessment and Plan 1. Chest discomfort: Though his symptoms are little bit different than they were when he presented with his myocardial infarction the discomfort is worrisome, it is also associated with electrocardiographic changes and enzyme abnormalities. I think it is most likely due to coronary ischemia. 2. Non-ST segment myocardial infarction: He appears to have had a non-ST segment elevation myocardial infarction with electrocardiographic changes and enzyme elevation. The enzyme elevation is not severe and is dropping, however this along with the electrocardiographic changes and his symptoms suggest that he may have active ischemia when he came in. It was not strictly exertional. On electrocardiography it appears to be in a distribution where he had a stent placed. I think the safest option would be to proceed with catheterization and possible intervention. He is scheduled for this morning. I have talked to my partner, Dr. Lara, we will plan on doing the case. The patient is agreeable. Thank you for allowing me to participate in his care.
[2017-10-14] MEDS ORDERED: MIDAZOLAM HCL 1 MG/ML 2ML VIAL ONE (12:26)
[2017-10-14] MEDS ORDERED: HEPARIN SOD (PORCINE) 1000 UNIT/ML 10 ML VIAL ONE (12:26)
[2017-10-14] MEDS ORDERED: NiCARDipine HCL INJ 2.5 MG/ML 10 ML AMP ONE (12:26)
[2017-10-14] MEDS ORDERED: FENTANYL CITRATE INJ 50 MCG/1 ML 2 ML VIAL ONE (12:26)
[2017-10-14] MEDS ORDERED: NITROGLYCERIN/D5W 100MCG/ML 20ML SYR ONE (12:27)
--- NOTE | 2017-10-14 12:38 | Pre Sedation Assessment ---
Pre Sedation Assessment General Date of Sedation: Oct 14, 2017. Vital Signs Past 12 Hours Date Time Temp Pulse Resp B/P (MAP) Pulse Ox O2 Delivery O2 Flow Rate FiO2 10/14/17 11:32 36.6 68 19 144/67 (92) 95 Room Air 10/14/17 08:00 Room Air 10/14/17 07:09 36.5 84 19 153/67 (95) 93 Room Air 10/14/17 04:36 36.5 75 16 164/70 (101) 93 Room Air 10/14/17 04:00 95 Room Air Review Cardiovascular: regular rate, rhythm Lungs: lungs clear Pre-Sedation Airway Assessment Smoking Status: Former Smoker Oral Cavity: WNL Mallampati Classification: Class III ASA Classification: Class III NPO Status Date of Last Intake of Fluids: Oct 13, 2017 Time of Last Intake of Fluids: 2359 Date of Last Intake of Solids: Oct 13, 2017 Time of Last Intake of Solids: 1700 Procedure Planning Contraindications for Sedation: None Current Medications Reviewed: Yes Notes The planned sedation has been discussed with the patient. Informed Consent was obtained. I have identified the patient, determined the appropriateness of sedation and have assessed the patient immediately prior to the procedure. All medicine(s) and interventions are by my order.
[2017-10-14] MEDS: SODIUM CHLORIDE 0.9% 1000ML 1,000 ML IV SCH ×2 (13:24→20:14)
[2017-10-14] MEDS ORDERED: SODIUM CHLORIDE 0.9% 1000ML 250 ML IV PRN (13:24)
--- NOTE | 2017-10-14 13:24 | Cardiology Procedure Brief Nt ---
Preliminary Cardiology Note Procedure Date Oct 14, 2017. 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 other CAD appears stable. full report to follow Recommendations optimize meds Specimens none Complication(s) None Disposition PCU
--- NOTE | 2017-10-14 13:24 | Post Sedation Assessment ---
Post Sedation Assessment General Date of Sedation Oct 14, 2017. Vital Signs: Vital Signs Past 12 Hours Date Time Temp Pulse Resp B/P (MAP) Pulse Ox O2 Delivery O2 Flow Rate FiO2 10/14/17 13:15 73 18 137/87 (104) 98 Room Air 10/14/17 12:00 Room Air 10/14/17 11:32 36.6 68 19 144/67 (92) 95 Room Air 10/14/17 08:00 Room Air 10/14/17 07:09 36.5 84 19 153/67 (95) 93 Room Air 10/14/17 04:36 36.5 75 16 164/70 (101) 93 Room Air 10/14/17 04:00 95 Room Air Post Procedure Recovery Score Activity: (2) Moves 4 extremities * Respiration: (2) Deep breath/cough Circulation: (2) +/-20% PreAnes Value Consciousness: (2) Fully Awake Oxygen Saturation: (2) > 92% On Room Air Post Anesthesia Score: 10 Discharge Sedation Level of Care: Fast Track Phase II Post Sedation Plan On clinical assessment, the patient appears to have tolerated the sedation without complications. Patient is recovering as anticipated. Patient will continue to be monitored by nursing and may be discharged when sedation discharge criteria are met per below protocol. Upon Completions of procedure and additional 15 minutes continue every 5 minute vital signs and the P.A.R. score; then discharge to a Phase I or Fast Track to Phase II per the following guidelines: * Discharge Patient to appropriate Phase II area if PAR is 8 or greater or return to pre- procedure baseline. The post - procedure orders will be as directed. * If PAR score is less than 8 or not return to pre-procedure baseline then patient will follow Phase I monitoring till PAR is reached for Phase II. The Phase I may be done in procedure room or may call to secure a Phase I area. * If naloxone or flumazenil are used for reversal, hold in Phase I for an additional 60 -120 minutes before discharge to Phase II. Please call the Sedation Physician to re-evaluate and complete post-note for discharge to Phase II area. Do NOT discharge from procedure sedation or Phase 1 until post- sedation evaluation note is complete by procedure /sedation MD Sedation Discharge Instructions to be given to the patient at discharge to home.
--- NOTE | 2017-10-14 13:28 | Consultant Recommendations ---
Body Care Manager Recommendations Date of Service Oct 14, 2017. Body Care Manager Recommendations ACTIVITY RECOMMENDATIONS: Excess manipulation of the wrist should be avoided for the next 24-48 hours. * No lifting over 2 pounds (approximately a 1/2 gallon of milk) with the utilized arm for 24 hours. * No strenuous activity such as bowling or tennis for 3 days. * Keep the site of the procedure covered with a bandage for 24 hours. *You may shower the day after the procedure. Do not take a tub bath or submerge the puncture site in water for the next 3 days. *Do not operate any motorized equipment for 3 days. SPECIAL CARE INSTRUCTIONS: The site may be slightly bruised and sore following your procedure. Should any of the following occur, contact the Dr. who performed your procedure. 1. Redness/inflammation, swelling, chills, or fever, or colored drainage at procedure site within 3-7 days after your procedure. 2. Coldness, discoloration, ongoing numbness, severe pain, or swelling. Expect mild tingling of hand and tenderness at the puncture site for up to three days. If this persists beyond three days, or other symptoms develop, notify the Dr. who performed your procedure. BLEEDING: If the procedure site on your wrist begins to bleed, do not panic 1. Place 1 or 2 fingers firmly just slightly above the insertion site to stop the bleeding. You may be able to feel your pulse as you hold pressure. 2. Lift your finger after 5 minutes to see if the bleeding has stopped. 3. Once the bleeding has stopped, gently wipe the wrist area clean with a bandage. * If the bleeding from your wrist does not stop after 10 minutes, or if there is a large amount of bleeding or spurting, call 911 (do not drive yourself to the hospital). SKIN IRRITATION: * You may experience some redness and/or swelling in the area where radiation was administered. If any skin irritation occurs, please contact your family physician. FOLLOW UP VISIT: Keep any scheduled doctor appointments.
[2017-10-14] MEDS ORDERED: NURSING VERBAL MED ORDER ONE ×2 (14:00→21:45)
[2017-10-14] MEDS ORDERED: METOPROLOL SUCC 50MG EXT REL TAB PO STA (14:05)
--- NOTE | 2017-10-14 14:05 | Cardiac Catheterization ---
Procedure Note Procedure Date Oct 14, 2017. Pre-Procedure Diagnosis Angina, CAD AUC Score 9 Post-Procedure Diagnosis Severe CAD, Normal Intracardiac Pressures Procedure(s) Performed Coronary Angiography, Left Heart Cath Title Supervisor Dr. Lara Drum Reel Cutter(s) Richard Estimated Blood Loss < 20 ml Medication(s) Fentanyl, Heparin, Nicardipine, Versed, Lidocaine 1% Summary of Findings Coronary angiography: 1. Left main coronary artery: The LAD and circumflex vessels appear to have separate ostium or share a very short left main coronary artery without any CAD. 2. Left anterior descending: The LAD is a large caliber vessel that extends to the apex. The LAD is stented from the ostial portion to the mid LAD. The ostial/proximal and mid LAD stents are patent. There is a medium caliber D2 which appears to be pinched at the ostium within the stented portion of the LAD of approximately 70%. Very small caliber D2 and D3. 3. Circumflex: Circumflex is a large caliber vessel. Dominant circumflex. Ostial/proximal circumflex stent is widely patent. Mid circumflex 60-70% at the bifurcation of a large OM1. Medium caliber PL 50% proximal stenosis. Proximal PDA 90% with KT 3 flow. 4. Right coronary artery: The RCA is small in non dominant. No significant CAD. Left heart catheterization: 1. Left ventriculography was not performed. 2. No significant aortic stenosis. 3. Normal LVEDP; LVEDP 7mmHg. Sedation start time: 12:51 p.m. Sedation end time: 1:15 p.m. Procedural details: 1. Coronary angiography was performed via the right radial artery without known complication. Impression: 1. Patent ostial to mid LAD stents. Patent ostial/proximal circumflex stent. 2. Moderate to severe mid circumflex and ostial D1 CAD. (mid circumflex stenosis underwent IFR [facility] and was borderline) 3. Severe CAD involving medium caliber PDA. 4. Moderate CAD involving PL branch. 5. Dominant circumflex. 6. No aortic stenosis. 7. Normal LVEDP. 8. Circumflex and PDA stenotic lesions appear stable compared to July 2017 coronary angiography images, which were reviewed. Plan: 1. Optimize medical therapy. If he has symptoms concerning for angina, could consider FFR of mid circumflex stenosis. 2. Images were reviewed with interventional Cardiology. Hemodynamics Rest Ao: 119/50 Final Ao: 136/59 LV: 141/2/7 Recommendations Medical therapy and/or Counseling Specimens None Radiation Exposure (mGy) 1301 mGy. Fluoro time 4.4 min. Contrast (mls) 40 ml visipaque Procedural Complication(s) None Disposition PCU ACC Data Cardiac Status Clinical evaluation leading to the procedure CAD Presntation: Stable angina Anginal Classification: CCS III Heart Failure: No Cardiogenic Shock w/in 24Hrs: No Cardiac Arrest w/in 24Hrs: No Imaging studies past 6 months: Yes Stress studies past 6 months: No Standard Exercise Stress Test: No Stress Echocardiogram: No Stress Testing w/SPECT MPI: No Cardiac CTA: No Coronary Anatomy Dominant: Left Left Main (% Stenosis): Normal LAD (% Stenosis): Proximal (patent ostial to mid LAD stents) D1 (% Stenosis): Ostial (70%) D2 (% Stenosis): Normal D3 (% Stenosis): Normal Circumflex (% Stenosis): Ostial (Ostial to proximal stents are patent), Mid (60 -70%) OM1 (% Stenosis): Normal L PL1 (% Stenosis): Mid (50%) L PDA (% Stenosis): Proximal (90%) RCA (% Stenosis): Normal Left Ventricular Angiography EF (%): n/a Diagnostic Physician's Name: Javier Lara MD Closure Device Percutaneous Entry Location: Radial Closure Device: Radial Band Recommendations: Medical therapy and/or Counseling
--- NOTE | 2017-10-14 14:51 | Hospitalist Progress Note ---
Hospitalist Progress Note Date of Service Oct 14, 2017. Subjective Pt evaluation today including: conversation w/ patient, physical exam, chart review, lab review, review of inpatient medication list Pain: None PO Intake: Tolerating PO diet Voiding: no voiding problems Patient examined after cardiac cath. He denies any complaints currently and states he is feeling well. He is eating his lunch without issue. The patient denies fevers, chills, sweats, chest pain, palpitations, claudication, cough, wheezing, shortness of breath, nausea, vomiting, abdominal pain, dysuria, hematuria, urinary retention, paralysis, weakness, numbness and tingling. Additional Comments: See HPI for pertinent positives and negatives. All other systems reviewed and negative. Objective Vital Signs Date Time Temp Pulse Resp B/P (MAP) Pulse Ox O2 Delivery O2 Flow Rate FiO2 10/14/17 14:10 67 16 133/65 (87) 96 Room Air 10/14/17 13:55 70 16 174/80 (111) 96 Room Air 10/14/17 13:40 70 16 166/73 (104) 95 Room Air 10/14/17 13:25 36.8 75 16 166/74 (104) 95 Room Air 10/14/17 13:15 73 18 137/87 (104) 98 Room Air 10/14/17 12:00 Room Air 10/14/17 11:32 36.6 68 19 144/67 (92) 95 Room Air 10/14/17 08:00 Room Air 10/14/17 07:09 36.5 84 19 153/67 (95) 93 Room Air 10/14/17 04:36 36.5 75 16 164/70 (101) 93 Room Air 10/14/17 04:00 95 Room Air 10/13/17 23:59 37.0 69 19 180/76 (110) 96 Room Air 173/86 (115) 10/13/17 23:59 95 Room Air 10/13/17 20:25 36.9 65 18 164/75 (104) 95 Room Air 10/13/17 20:00 95 Room Air 10/13/17 16:00 Room Air 10/13/17 14:56 36.9 66 18 145/58 (87) 95 Room Air Physical Exam Notes: General appearance: +Obese. Well-developed, well-nourished, no apparent distress Head: Normocephalic, atraumatic Eyes: Normal inspection, PERRL, EOMI ENT: Normal ENT inspection, hearing grossly normal, pharynx normal Neck: Supple, no JVD, trachea midline Respiratory/Chest: Lungs clear to auscultation, normal breath sounds, no respiratory distress Cardiovascular: Regular rate & rhythm, no gallop, no murmur Abdomen/GI: Normal bowel sounds, non-tender, soft Extremities/Musculoskeletal: Normal inspection, no calf tenderness, no pedal edema Neurological/Psych: Alert, normal mood/affect, oriented x 3 Skin: Normal color, warm/dry, no rash Laboratory Results Last 24 Hours Test 10/13/17 15:23 10/14/17 07:01 10/14/17 14:37 Total Creatine Kinase 59 U/L Creatine Kinase MB 2.4 ng/ml Creatine Kinase MB Ratio 4.1 Troponin I 0.295 ng/ml White Blood Count 6.25 K/uL Red Blood Count 3.67 M/uL Hemoglobin 10.9 g/dL Hematocrit 32.3 % Mean Corpuscular Volume 88.0 fL Mean Corpuscular Hemoglobin 29.7 pg Mean Corpuscular Hemoglobin Concent 33.7 g/dl Platelet Count 159 K/uL Mean Platelet Volume 9.1 fL Neutrophils (%) (Auto) 63.1 % Lymphocytes (%) (Auto) 20.6 % Monocytes (%) (Auto) 12.6 % Eosinophils (%) (Auto) 3.2 % Basophils (%) (Auto) 0.3 % Neutrophils # (Auto) 3.94 K/uL Lymphocytes # (Auto) 1.29 K/uL Monocytes # (Auto) 0.79 K/uL Eosinophils # (Auto) 0.20 K/uL Basophils # (Auto) 0.02 K/uL RDW Standard Deviation 43.6 fL RDW Coefficient of Variation 13.6 % Immature Granulocyte % (Auto) 0.2 % Immature Granulocyte # (Auto) 0.01 K/uL Prothrombin Time 11.4 SECONDS Prothromb Time International Ratio 1.1 Activated Partial Thromboplast Time 127.2 SECONDS Partial Thromboplastin Ratio 4.9 Sodium Level 140 mmol/L Potassium Level 4.0 mmol/L Chloride Level 108 mmol/L Carbon Dioxide Level 24 mmol/L Anion Gap 8.0 mmol/L Blood Urea Nitrogen 18 mg/dl Creatinine 0.95 mg/dl Est Creatinine Clear Calc Drug Dose 74.3 ml/min Estimated GFR () 87.9 Estimated GFR (Non- 75.8 BUN/Creatinine Ratio 18.4 Random Glucose 109 mg/dl Calcium Level 8.5 mg/dl Magnesium Level 2.1 mg/dl Diagnostic Results Procedure Note Procedure Date Oct 14, 2017. Pre-Procedure Diagnosis Angina, CAD AUC Score 9 Post-Procedure Diagnosis Severe CAD, Normal Intracardiac Pressures Procedure(s) Performed Coronary Angiography, Left Heart Cath Tail Edger Dr. Lara Carding Machine Operator(s) Richard Estimated Blood Loss < 20 ml Medication(s) Fentanyl, Heparin, Nicardipine, Versed, Lidocaine 1% Summary of Findings Coronary angiography: 1. Left main coronary artery: The LAD and circumflex vessels appear to have separate ostium or share a very short left main coronary artery without any CAD. 2. Left anterior descending: The LAD is a large caliber vessel that extends to the apex. The LAD is stented from the ostial portion to the mid LAD. The ostial/proximal and mid LAD stents are patent. There is a medium caliber D2 which appears to be pinched at the ostium within the stented portion of the LAD of approximately 70%. Very small caliber D2 and D3. 3. Circumflex: Circumflex is a large caliber vessel. Dominant circumflex. Ostial/proximal circumflex stent is widely patent. Mid circumflex 60-70% at the bifurcation of a large OM1. Medium caliber PL 50% proximal stenosis. Proximal PDA 90% with KT 3 flow. 4. Right coronary artery: The RCA is small in non dominant. No significant CAD. Left heart catheterization: 1. Left ventriculography was not performed. 2. No significant aortic stenosis. 3. Normal LVEDP; LVEDP 7mmHg. Sedation start time: 12:51 p.m. Sedation end time: 1:15 p.m. Procedural details: 1. Coronary angiography was performed via the right radial artery without known complication. Impression: 1. Patent ostial to mid LAD stents. Patent ostial/proximal circumflex stent. 2. Moderate to severe mid circumflex and ostial D1 CAD. (mid circumflex stenosis underwent IFR [facility] and was borderline) 3. Severe CAD involving medium caliber PDA. 4. Moderate CAD involving PL branch. 5. Dominant circumflex. 6. No aortic stenosis. 7. Normal LVEDP. 8. Circumflex and PDA stenotic lesions appear stable compared to July 2017 coronary angiography images, which were reviewed. Plan: 1. Optimize medical therapy. If he has symptoms concerning for angina, could consider FFR of mid circumflex stenosis. 2. Images were reviewed with interventional Cardiology. Assessment and Plan 81 y/o male with a history of HTN, HLD, recent NSTEMI 07/29/17, h/o CVA, COPD, hypothyroidism, depression, h/o herpes zoster ophthalmicus w/postherpetic neuralgia, BPH and GERD who presented to the ED on 10/12 chest pain and lightheadedness. Chest pain, NSTEMI--improving -Admitted to telemetry. No acute events overnight. Pt in sinus rhythm with HR in the 60s-80s. -Troponin trending down: 0.335 --> 0.315 --> 0.300 --> 0.295 -EKG with lateral TWI, anterior TWI no longer evident -S/p cardiac cath, reviewed as above. CAD stable from last cath Jul 2017. Stents are patent. Recommend optimizing medical therapy. -Cardiology consulted, appreciate recs: Limited echo. Increase Toprol to 100 mg PO qd. -Lipid panel WNL, HgbA1c 5.7 -Continue ASA, Plavix, statin, beta vasiliy HTN, HLD, recent NSTEMI 07/29/17 s/p 3 cardiac stents--stable -Pt had presented to [facility] 07/29 w/NSTEMI, found to have severe multivessel CAD and transferred to [facility] [place] CABG evaluation. Ultimately received 3 stents instead -Continue ASA, Plavix, losartan 50 mg PO qd, Lipitor 40 mg PO qd -Toprol increased to 100 mg PO qd COPD--stable -Continue Dulera 2 puffs inh BID, albuterol prn Hypothyroidism -TSH WNL 08/10/17 -Continue Synthroid 100 mcg PO qd Depression -Continue duloxetine 60 mg PO qd H/o herpes zoster ophthalmicus w/postherpetic neuralgia -Continue valacyclovir 500 mg PO qd, gabapentin 300 mg PO hs, and Prednisolone drops BPH, overactive bladder -Continue alfuzosin 10 mg PO hs, dutasteride 0.5 mg PO qd GERD -Prilosec converted to Protonix while inpt DVT prophylaxis -Heparin drip Code Status -Level I, FULL RESUSCITATION STATUS
[2017-10-14 14:55] LABS: PTT PATIENT 39.9 SECONDS (21.0-31.0)
[2017-10-14] MEDS ORDERED: PERFLUTREN LIPID MICROSPHERE (DEFINITY) IV ONE (15:24)
--- NOTE | 2017-10-14 16:41 | ECHOCARDIOGRAM REPORT ---
*NOTICE TO RECEIVING [employer] This information is strictly Confidential and protected under [place] law. [place] law prohibits you from making any further disclosure of this information unless further disclosure is expressly permitted by the written consent of the person to whom it pertains or is authorized by law. A general authorization for the release of medical or other information is not sufficient for this purpose. Hospital accepts no responsibility if the information is made available to any other person, INCLUDING THE PATIENT. Interpretation Summary * Name: CHARLEY BROWN Study Date: 10/14/2017 03:01 PM BP: 141/70 mmHg * Patient Location: .2T\S\S229\S\1 HR: 72 * : 1935 (M/d/yyy) Gender: Male Height: 70 in * Age: 81 yrs Ethnicity: [place] Weight: 217 lb * Ordering Physician: Javier Lara * Referring Physician: Self, Referred * Performed By: Keli Gillespie [facility] * * Reason For Study: EVAL WALL MOTION AND SYSTOLIC FUNCTION * BSA: 2.2 m2 * -- Conclusions -- * 1. Normal left ventricular size with hyperdynamic systolic function. EF > 70%. No regional wall motion abnormalities. Moderate concentric left ventricular hypertrophy. * 2. Limited 2D echo as per request. Limited color Doppler performed. Procedure Details * Limited views were obtained. * A contrast injection of Definity was performed to improve assessment of LV function. * Contrast was injected into an intravenous site in the right arm. * One vial of Definity ultrasound contrast was diluted in normal saline to a total volume of 10 ml. A total of '2' ml of solution was administered during imaging. * Lot # [id number] of Definity utilized for procedure. * Expiration date 1 OCT 10. * The attending nurse who injected the contrast agent was ROSA RUIZ, RN. Left Ventricle * Normal left ventricular size with hyperdynamic systolic function. EF > 70%. No regional wall motion abnormalities. Moderate concentric left ventricular hypertrophy. Right Ventricle * The right ventricle is normal in size and function. Atria * The left atrial size is normal. * Right atrial size is normal. Mitral Valve * The mitral valve is grossly normal. * Significant mitral regurgitation is absent. Tricuspid Valve * The tricuspid valve is not well visualized. Aortic Valve * The aortic valve is not well visualized. Pulmonic Valve * The pulmonic valve is not well visualized. Great Vessels * The aortic root is normal size. Pericardium/Pleural * There is no pericardial effusion. Great Vessels * Normal inferior vena cava size and collapsability with sniff indicates a normal right atrial pressure of 3 mmHg MMode 2D Measurements and Calculations IVSd 1.4 cm IVSs 1.7 cm LVIDd 4.4 cm LVIDs 2.1 cm LVPWd 1.4 cm LVPWs 1.6 cm IVS/LVPW 1.0 FS 51.2 % EDV(Teich) 85.8 ml ESV(Teich) 14.9 ml EF(Teich) 82.6 % EDV(cubed) 82.8 ml ESV(cubed) 9.6 ml EF(cubed) 88.4 % % IVS thick 21.9 % % LVPW thick 17.2 % LV mass(C)d 235.2 grams LV mass(C)dI 108.8 grams/m\S\2 LV mass(C)s 127.9 grams LV mass(C)sI 59.2 grams/m\S\2 SV(Teich) 70.9 ml SI(Teich) 32.8 ml/m\S\2 SV(cubed) 73.2 ml SI(cubed) 33.9 ml/m\S\2 Ao root diam 3.7 cm Ao root area 10.7 cm\S\2 LVOT diam 2.0 cm LVOT area 3.0 cm\S\2
[2017-10-14] MEDS: POLYETHYLENE (MIRALAX) 17 GM PACK PO SCH (20:11)
[2017-10-14] MEDS: GABAPENTIN 300 MG CAP PO SCH (20:13)
[2017-10-14] MEDS: ALFUZosin TAB 10 MG TAB PO SCH (20:13)
[2017-10-15] VITALS: BP 162/74; PULSE 60; TEMP 37; O2SAT 95
[2017-10-15 04:13] VITALS: BP 161/66; PULSE 64; TEMP 36.5; O2SAT 93
[2017-10-15] MEDS: NITROGLYCERIN 2% OINTMENT 30GM TUBE EXT SCH (05:40)
[2017-10-15] MEDS: LEVOTHYROXINE 100 MCG TAB PO SCH (05:50)
[2017-10-15 05:54] LABS: BASO % 0.4 %; BASO ABS # 0.02 K/uL (0-0.2); EOS % 4.5 %; EOS ABS # 0.22 K/uL (0-0.5); HEMATOCRIT 32.9 % (42-52); HEMOGLOBIN 11.2 g/dL (14.0-18.0); IG# 0.01 K/uL (0.00-0.02); LYMPH % 24.4 %; MEAN CORPUSCULAR HEMOGLOBIN 29.9 pg (25-34); MEAN PLATELET VOLUME 8.3 fL (7.4-10.4); MONO % 13.4 %; MONO ABS # 0.66 K/uL (0.11-0.59); NEUT % 57.1 %; PLATELET COUNT 134 K/uL (130-400); RED CELL DISTRIBUTION WIDTH CV 13.7 % (11.5-14.5); RED CELL DISTRIBUTION WIDTH SD 43.8 fL (36.4-46.3); WHITE BLOOD COUNT 4.91 K/uL (4.8-10.8)
[2017-10-15 06:23] LABS: PTT PATIENT 25.3 SECONDS (21.0-31.0)
[2017-10-15 06:28] LABS: CALCIUM 8.3 mg/dl (8.5-10.1); CREATININE 0.93 mg/dl (0.60-1.40); POTASSIUM 4.1 mmol/L (3.5-5.1)
[2017-10-15] MEDS ORDERED: TPRSR100 PO (07:29)
--- NOTE | 2017-10-15 07:35 | Discharge Instructions ---
Discharge Instructions Date of Service Oct 15, 2017. Admission Reason for Admission: Hx Of Coronary Artery Stent Placement, Non-Stemi Discharge Discharge Diagnosis / Problem: NSTEMI, hypertension, dyslipidemia Discharge Goals Goal(s): Decrease discomfort, Improve function Activity Recommendations Activity Limitations: resume your previous activity . Instructions / Follow-Up Instructions / Follow-Up Medications: - TOPROL: dose increased to 100mg from 50mg, new script sent to pharmacy, can just double up on 50mg until new script filled NSTEMI: mild heart attack with chest pain, EKG changes and mild elevation in enzymes treated with heparin drip, aspirin and Plavix and statin heart catheterization showed that previous stents were patent and no other new changes from prior cath Dr. Lara and Dr. Joya recommend medical therapy FOLLOW UP - Dr. Gio Angel in one week - Dr. Lara in 2-4 weeks Current Hospital Diet Patient's current hospital diet: AHA Diet (Heart Healthy) Discharge Diet Recommended Diet: AHA Diet (Heart Healthy) Pending Studies Studies pending at discharge: no Laboratory Results Hemoglobin A1c Test 10/13/17 05:19 Range/Units Estimated Average Glucose 117 mg/dl Hemoglobin A1c 5.7 H 4.5-5.6 % Lipid Panel Test 10/13/17 05:19 Range/Units Triglycerides Level 77 0-150 mg/dl Cholesterol Level 101 0-200 mg/dl HDL Cholesterol 42 mg/dl Cholesterol/HDL Ratio 2.4 LDL Cholesterol, Calculated 44 mg/dl Medical Emergencies . Who to Call and When: Medical Emergencies: If at any time you feel your situation is an emergency, please call 911 immediately. . Non-Emergent Contact Non-Emergency issues call your: Primary Care Provider, Cryogenics Repairer Call Non-Emergent contact if: you have any medication questions . . "Provider Documentation" section prepared by Stu Blank. . Scorekeeper Recommendations Scorekeeper Recommendations: ACTIVITY RECOMMENDATIONS: Excess manipulation of the wrist should be avoided for the next 24-48 hours. * No lifting over 2 pounds (approximately a 1/2 gallon of milk) with the utilized arm for 24 hours. * No strenuous activity such as bowling or tennis for 3 days. * Keep the site of the procedure covered with a bandage for 24 hours. *You may shower the day after the procedure. Do not take a tub bath or submerge the puncture site in water for the next 3 days. *Do not operate any motorized equipment for 3 days. SPECIAL CARE INSTRUCTIONS: The site may be slightly bruised and sore following your procedure. Should any of the following occur, contact the Dr. who performed your procedure. 1. Redness/inflammation, swelling, chills, or fever, or colored drainage at procedure site within 3-7 days after your procedure. 2. Coldness, discoloration, ongoing numbness, severe pain, or swelling. Expect mild tingling of hand and tenderness at the puncture site for up to three days. If this persists beyond three days, or other symptoms develop, notify the Dr. who performed your procedure. BLEEDING: If the procedure site on your wrist begins to bleed, do not panic 1. Place 1 or 2 fingers firmly just slightly above the insertion site to stop the bleeding. You may be able to feel your pulse as you hold pressure. 2. Lift your finger after 5 minutes to see if the bleeding has stopped. 3. Once the bleeding has stopped, gently wipe the wrist area clean with a bandage. * If the bleeding from your wrist does not stop after 10 minutes, or if there is a large amount of bleeding or spurting, call 911 (do not drive yourself to the hospital). SKIN IRRITATION: * You may experience some redness and/or swelling in the area where radiation was administered. If any skin irritation occurs, please contact your family physician. FOLLOW UP VISIT: Keep any scheduled doctor appointments. VTE Core Measure Inpt VTE Proph given/why not?: Other Anticoagulation [place] Drug Monitoring Program Search Results: no issues identified
[2017-10-15] MEDS: BUDESONIDE/FORMOTEROL FUMARATE 160/4.5 60 PUFFS/INHALER INH SCH (07:36)
[2017-10-15] MEDS: PANTOprazole SOD 40 MG TAB PO SCH (07:38)
[2017-10-15] MEDS: CHOLECALCIFEROL 1000 INTER.UNIT TAB PO SCH (07:39)
[2017-10-15] MEDS: DULOXETINE HCL 60 MG CAP PO SCH (07:39)
[2017-10-15] MEDS: NEPHROCAPS PO SCH (07:39)
[2017-10-15] MEDS: CLOPIDOGREL BISULFATE 75 MG TAB PO SCH (07:39)
[2017-10-15] MEDS: CALCIUM 600MG + VIT D 400 IU TAB PO SCH (07:40)
[2017-10-15] MEDS: PrednisoLONE ACET 1% OP SUSP 5 ML BTL OPL SCH (07:40)
[2017-10-15] MEDS: LOSARTAN POTASSIUM 50 MG TAB PO SCH (07:41)
[2017-10-15] MEDS: ATORVASTATIN 20 MG TAB PO SCH (07:41)
[2017-10-15] MEDS: PSYLLIUM 58.6% PWD PACK S\\F PO SCH (07:41)
[2017-10-15] MEDS: ASPIRIN 81 MG ECTAB PO SCH (07:41)
[2017-10-15 07:42] VITALS: BP 163/70; PULSE 75; TEMP 36.5; O2SAT 95
[2017-10-15 08:14] VITALS: BP 163/70; PULSE 75; TEMP 36.5; O2SAT 95
[2017-10-15] MEDS ORDERED: METOPROLOL SUCC 50MG EXT REL TAB PO SCH (09:00)
--- NOTE | 2017-10-15 11:27 | CARDIOLOGY PROGRESS NOTE ---
DATE: 10/15/2017 TIME: 11:00 a.m. SUBJECTIVE: He denies any further chest discomfort. He denies shortness of breath, syncope, near syncope, or palpitations. He did undergo a cardiac catheterization and a limited echo yesterday as outlined below. OBJECTIVE: VITAL SIGNS: Temperature 36.5 degrees, heart rate 75 beats per minute, respiration rate 22, blood pressure 163/70 mmHg, oxygen saturation 95% on room air. Weight 99.7 kilograms. GENERAL: No acute distress. He is alert. NECK: No JVD. CARDIAC EXAM: No ventricular heave. Regular, normal S1 and S2. There were no audible murmurs, rubs or gallops. LUNGS: Clear to auscultation bilaterally without wheezes, rales or rhonchi. ABDOMEN: Soft, nontender, nondistended. Normoactive bowel sounds. No bruits. EXTREMITIES: Trace bilateral lower extremity edema. No cyanosis. Right radial pulse is 2+. Right radial catheterization site is clean, dry and intact without erythema or discharge. PSYCHIATRIC: Affect appears appropriate. MEDICATIONS: Include aspirin 81 mg daily, atorvastatin 40 mg daily, Plavix 75 mg daily, metoprolol succinate 100 mg daily, losartan 50 mg daily, Synthroid 100 mcg daily, Protonix 40 mg daily. Telemetry personally reviewed. Sinus rhythm. No arrhythmia. LABORATORY DATA: White blood cell count is 4.91, hemoglobin 11.2, platelets 134. Sodium 139, potassium 4.1, BUN 16, creatinine 0.93, magnesium 2.3. IMAGING STUDIES: Limited echo performed yesterday demonstrated hyperdynamic LV systolic function with an EF of greater than 70%. No regional wall motion abnormalities. Moderate LVH. Cardiac catheterization performed yesterday demonstrated patent ostial to mid LAD stents. Medium caliber D2 ostium appears pinched within the stented portion of the LAD approximately 70%. Dominant circumflex. Mid circumflex 60%-70% at the bifurcation of the large OM1. Medium caliber PL 50% proximally. Proximal PDA 90%. The nonstented portions of the coronary arteries appear to be stable compared to July 2017 catheterization. ASSESSMENT AND PLAN: 1. Chest pain: His chest pain was concerning for angina; however, he described it as being different than prior angina. He has not had any further symptoms. Etiology uncertain. He did have a gradient intracavitary left ventricular gradient in his July 2017 echo. For this reason, metoprolol succinate was increased. 2. Elevated troponins: They were minimally elevated, but not diagnostic for myocardial infarction. He has no new stenotic lesions and his symptoms were different than prior angina. Optimize medical therapy. 3. Coronary artery disease status post left anterior descending and circumflex stents in July 2017: He had borderline mid circumflex lesion demonstrated yesterday and also in 2017 with a borderline iFR at [facility]. This could be stented if he has symptoms concerning for angina thought to be induced from this lesion. Medical therapy is recommended for now given stable findings. Titrate beta vasiliy. Beta vasiliy can be further titrated if appropriate. Optimize blood pressure. Continue dual antiplatelet therapy for at least 1 year following percutaneous coronary intervention and continue aspirin 81 mg daily indefinitely. Continue high intensity statin therapy. 4. Hypertension: Beta vasiliy was titrated within the past 24 hours. This can be further titrated if appropriate, especially given intracavitary left ventricular gradient noted in July 2017. Abnormal ECG: Etiology uncertain. Catheterization findings as above. 5. Disposition: He is being planned for discharge. Follow up with Dr. Cormier, his primary jd edwards, in the next few weeks to further titrate medications as appropriate and to assess for symptoms. Dr. Cormier's office will be notified to help arrange this appointment for him.
--- NOTE | 2017-10-15 13:53 | Discharge Summary ---
Discharge Summary Date of Service Oct 15, 2017. Discharge Summary Admission Date: Oct 12, 2017 at 22:48 Discharge Date: Oct 15, 2017 Discharge Disposition: Home Principal Diagnosis: NSTEMI Problems/Secondary Diagnoses: Hypertension Dyslipidemia Immunizations: Have You Had Influenza Vaccine: Unknown History of Tetanus Vaccine?: Unknown History of Pneumococcal: Unknown History of Hepatitis B Vaccine: Unknown Procedures: Left heart catheterization, no intervention Consultations: Cardiology Medication Reconciliation Changed Medications: Metoprolol Succinate (Toprol Xl) 100 Mg Tabcr 1 TAB PO DAILY for 30 Days, #30 TAB 5 Refills (Changed from: Metoprolol Succinate (Metoprolol Succinate ER) 50 Mg Tabcr 50 Mg PO DAILY) Continued Medications: Acetaminophen (Tylenol) 500 Mg Tab 1000 MG PO TID PRN for Pain, TAB Albuterol Hfa (Ventolin Hfa) 200 Puffs/76795 Mcg Aers 2 PUFF INH Q4 PRN for Shortness of Breath, #18 Alfuzosin HCl (Uroxatral) 10 Mg Tab 10 MG PO HS Ascorbic Acid (Vitamin C 500 mg) 1 Chw Chw 1 TAB PO DAILY Aspirin (Aspirin Ec) 325 Mg Tab 81 MG PO DAILY Atorvastatin (Lipitor) 40 Mg Tab 40 MG PO DAILY, TAB B-Complex W/ C & Folic Acid (Renal) 1 Cap Cap 1 CAP PO QAM for 30 Days, CAP Calcium Carbonate-Vitamin D W/ (Caltrate 600 Plus) 1 Tab Tab 1 TAB PO DAILY, TAB Cholecalciferol (Vitamin D 1000 Unit) 1,000 Unit Cap 1000 INTER.UNIT PO DAILY, CAP Clopidogrel (Plavix) 75 Mg Tab 75 MG PO DAILY, TAB Desloratadine (Clarinex) 5 Mg Tab 5 MG PO DAILY PRN for ALLERGIES, TAB Duloxetine HCl (Duloxetine HCl) 60 Mg Cap 60 MG PO DAILY, #30 Dutasteride (Dutasteride) 0.5 Mg Cap 0.5 MG PO DAILY, #30 Gabapentin (Gabapentin) 300 Mg Cap 1 CAP PO HS for 30 Days, CAP 5 Refills Levothyroxine Sodium (Levothyroxine Sodium) 100 Mcg Tab 100 MCG PO DAILY, #30 Losartan Potassium (Cozaar) 50 Mg Tab 1 TAB PO DAILY for 30 Days, #30 TAB 5 Refills Mometasone Furoate-Formoterol (Dulera 100/5 Mcg) 1 Aer Aer 2 PUFFS INH Q12 for 30 Days, #13 GM 2 Refills Nitroglycerin (Nitrostat) 0.4 Mg Sub 0.4 MG UT PRN, BTL Omeprazole (Prilosec) 40 Mg Cap 40 MG PO DAILY, CAP Polyethylene Glycol 3350 (Miralax) 1 Pow Pow 1 TBS PO HS Prednisolone Acetate (Ophth) (Prednisolone Acetate) 1 % Domenica 1 DROPS OPL DAILY for 5 Days, #5 ML Psyllium (Metamucil) 48.57 % Pow 2 TBS PO QAM Tadalafil (Cialis) 5 Mg Tab 5 MG PO DAILY, #30 Valacyclovir Hcl (Valtrex) 500 Mg Tab 1 TAB PO DAILY for 30 Days, #30 TAB 11 Refills Discharge Exam Patient feeling well, no chest pain. Tolerating diet, breathing stable. Feels ready to go home, will f/u with cardiology. Review of Systems: Constitutional: No fever, No chills, No sweats, No weight loss, No weakness , No fatigue, No problem reported Eyes: No worsening of vision, No eye pain, No redness, No discharge, No diplopia, No problem reported ENT: No hearing loss, No unusual epistaxis, No nasal symptoms, No sore throat, No tinnitus, No dental problems, No trouble swallowing, No problem reported Respiratory: No cough, No sputum, No wheezing, No shortness of breath, No dyspnea on exertion, No dyspnea at rest, No hemoptysis, No problem reported Cardiovascular: No chest pain, No orthopnea, No PND, No edema, No claudication, No palpitations, No problem reported Abdomen: No pain, No nausea, No vomiting, No diarrhea, No constipation, No GI bleeding, No problem reported Musculoskeletal: No joint pain, No muscle pain, No swelling, No calf pain, No problem reported Genitourinary - Male: No hematuria, No dysuria, No urinary frequency, No urinary urgency, No urinary hesitancy Neurologic: No memory loss, No paralysis, No weakness, No numbness/tingling , No vertigo, No balance problems, No problem reported Psychiatric: No depression symptoms, No anhedonism, No anxiety, No insomnia , No substance abuse, No problem reported Endocrine: No fatigue, No excessive thirst, No excessive urination, No problem reported Hematologic / Lymphatic: No abnormal bleeding/bruising, No clotting problems , No swollen lymph nodes, No night sweats, No problem reported Integumentary: No rash, No itch, No new/changing skin lesions, No color change, No bleeding, No problem reported Physical Exam: General Appearance: WD/WN, no apparent distress Eyes: normal inspection, EOMI, sclerae normal ENT: normal ENT inspection, hearing grossly normal, pharynx normal Neck: supple, no adenopathy, no JVD, trachea midline Respiratory/Chest: chest non-tender, lungs clear, normal breath sounds, no respiratory distress, no accessory muscle use Cardiovascular: regular rate, rhythm, no edema, no gallop, no JVD, no murmur , normal peripheral pulses Abdomen / GI: normal bowel sounds, non tender, soft, no organomegaly Extremities: normal inspection, no calf tenderness, normal capillary refill , no pedal edema, normal range of motion, pelvis stable Neurologic/Psychiatric: design lead II-XII nml as tested, no motor/sensory deficits , alert, normal mood/affect Skin: normal color, warm/dry, no rash Lymphatic: no adenopathy Hospital Course 81 y/o male with a history of HTN, HLD, recent NSTEMI 07/29/17, h/o CVA, COPD, hypothyroidism, depression, h/o herpes zoster ophthalmicus w/postherpetic neuralgia, BPH and GERD who presented to the ED on 10/12 chest pain and lightheadedness. Chest pain, NSTEMI: resolved, no chest pain, troponin trended down -left heart cath on 10/14 CAD stable from last cath Jul 2017. Stents are patent. Recommend optimizing medical therapy. - cardiology recommends increasing Toprol to 100 mg PO qd. -Lipid panel WNL, HgbA1c 5.7 -Continue ASA, Plavix, statin, beta vasiliy - follow up with Dr. Lara in the office HTN, HLD, recent NSTEMI 07/29/17 s/p 3 cardiac stents--stable -Pt had presented to [facility] 07/29 w/NSTEMI, found to have severe multivessel CAD and transferred to [facility] for CABG evaluation. Ultimately received 3 stents instead -Continue ASA, Plavix, losartan 50 mg PO qd, Lipitor 40 mg PO qd -Toprol increased to 100 mg PO qd, blood pressure tolerating well COPD--stable -Continue Dulera 2 puffs inh BID, albuterol prn Hypothyroidism -TSH WNL 08/10/17 -Continue Synthroid 100 mcg PO qd Depression -Continue duloxetine 60 mg PO qd H/o herpes zoster ophthalmicus w/postherpetic neuralgia -Continue valacyclovir 500 mg PO qd, gabapentin 300 mg PO hs, and Prednisolone drops BPH, overactive bladder -Continue alfuzosin 10 mg PO hs, dutasteride 0.5 mg PO qd GERD -Prilosec converted to Protonix while inpt DVT prophylaxis -Heparin drip Code Status -Level I, FULL RESUSCITATION STATUS Total Time Spent: Greater than 30 minutes This includes examination of the patient, discharge planning, medication reconciliation, and communication with other providers. Discharge Instructions Please refer to the electronic Patient Visit Report (Discharge Instructions) for additional information. Follow-Up Dr. Lara in 2-[address] Gio Angel in 1 week Additional Copies To Gio Angel M.D.; Javier Lara MD
== END 2017-10-15 11:16 | disposition home or self-care (01) | DRG 281 ==
LOC: C.EDB 19:20 → C.2T 22:48 → ENRESERV 23:25 → C.2T 10-14 11:22
PROVIDERS: ADMIT Hospitalist; ATTEND Internal Medicine
PROC: 4A023N7 Measurement of Cardiac Sampling and Pressure, Left Heart, Percutaneous Approach (ICD-10-PCS; principal; 2017-10-14 08:55)
PROC: B211YZZ Fluoroscopy of Multiple Coronary Arteries using Other Contrast (ICD-10-PCS; principal; 2017-10-14 08:55)
DX: I21.4 Non-ST elevation (NSTEMI) myocardial infarction (principal); B02.22 Postherpetic trigeminal neuralgia; I11.9 Hypertensive heart disease without heart failure; E78.5 Hyperlipidemia, unspecified; I25.2 Old myocardial infarction; I25.10 Atherosclerotic heart disease of native coronary artery without angina pectoris; J44.9 Chronic obstructive pulmonary disease, unspecified; E03.9 Hypothyroidism, unspecified; K21.9 Gastro-esophageal reflux disease without esophagitis; N40.0 Benign prostatic hyperplasia without lower urinary tract symptoms; N32.81 Overactive bladder; J45.909 Unspecified asthma, uncomplicated; F32.9 Major depressive disorder, single episode, unspecified; F41.9 Anxiety disorder, unspecified; Z51.81 Encounter for therapeutic drug level monitoring; Z79.899 Other long term (current) drug therapy; Z79.82 Long term (current) use of aspirin; Z86.19 Personal history of other infectious and parasitic diseases; Z86.73 Personal history of transient ischemic attack (TIA), and cerebral infarction without residual deficits; Z95.5 Presence of coronary angioplasty implant and graft; Z87.891 Personal history of nicotine dependence; Z88.1 Allergy status to other antibiotic agents; Z88.8 Allergy status to other drugs, medicaments and biological substances; Z51.89 Encounter for other specified aftercare

== ENCOUNTER → 2017-12-20 | Outpatient (CLI) | payer OTHER ==
[~2017-12-20] MED LIST changes: +ACET-1256 PO; +ASCO500C43 PO; +ASPI325T39 PO; +ATOR-24 PO; -CAPSCRE3 TOP; +CLOP1TAB15 PO; -CRS20 PO; +CYM60 PO; +DUTA1CAP3 PO; +LEVO100T7 PO; -METO-479 PO; +MOME100A INH; +NITR0.4S UT; -NRV5 PO; +OMEP40CA41 PO; +PSYL48.59 PO; -RANI150T85 PO; +TADA5TAB11 PO; +TPRSR100 PO; -TROS1CAP2 PO; +VNTHFA/IN INH
--- NOTE | 2017-12-20 12:59 | DIAGNOSTIC IMAGING REPORT ---
TWO VIEW CHEST CLINICAL HISTORY: Cough and wheezing. FINDINGS: PA and lateral chest radiographs are compared to study dated 10/12/2017. The heart is enlarged and there is atherosclerotic calcification of the thoracic aorta. The pulmonary vasculature is noncongested. There is a large hiatal hernia. Chronic interstitial thickening is similar to previous. No airspace consolidation or pleural effusion is identified. Foci of scarring/atelectasis are noted at the lung bases. There is no pneumothorax. The skeletal structures are osteopenic. Degenerative change is noted throughout the thoracic spine. IMPRESSION: 1. Cardiomegaly with no acute cardiopulmonary abnormality. 2. Large hiatal hernia. Electronically signed by: Anthony Mercado M.D. 12/20/2017 12:58 PM Dictated Date/Time: 12/20/2017 12:56 PM
== END | disposition home or self-care (01) ==
LOC: C.RADBC 12:32
PROVIDERS: ATTEND Nurse Practitioner Adult Health
DX: R06.2 Wheezing (principal); I51.7 Cardiomegaly; K44.9 Diaphragmatic hernia without obstruction or gangrene

== ENCOUNTER 2019-07-09 07:25 | Observation (INO) ==
[2019-07-09] MEDS ORDERED: SODIUM CHLORIDE 0.9% 1000ML 500 ML IV ONE (07:55)
[2019-07-09 08:15] LABS: Basophils # (auto) 0.03 K/uL (0-0.2); Basophils % (auto) 0.4 %; Eosinophils # (auto) 0.42 K/uL (0-0.5); Eosinophils % (auto) 5.4 %; Hematocrit (blood only) 42.6 % (42-52); Hemoglobin 14.7 g/dL (14.0-18.0); Immature Granulocytes # (auto) 0.03 K/uL (0.00-0.02); Immature Granulocytes % (auto) 0.4 %; Lymphocytes # (auto) 1.18 K/uL (1.2-3.4); Lymphocytes % (auto) 15.2 %; Mean Corpuscular Hgb Conc 34.5 g/dL (32-36); Mean Corpuscular Volume 95.5 fL (80-100); Monocytes # (auto) 0.77 K/uL (0.11-0.59); Monocytes % (auto) 9.9 %; Neutrophils # (auto) 5.33 K/uL (1.4-6.5); Neutrophils % (auto) 68.7 %; Platelet Count 230 K/uL (130-400); RDW Coefficient of Variation 13.1 % (11.5-14.5); RDW Standard Deviation 45.8 fL (36.4-46.3); Red Blood Count 4.46 M/uL (4.7-6.1); White Blood Count 7.76 K/uL (4.8-10.8)
--- NOTE | 2019-07-09 08:17 | XRay Report ---
XR chest 1V portable HISTORY: 83 years-old Male Chest Pain acute atypical chest pain COMPARISON: Chest radiograph 10/12/2017 TECHNIQUE: Portable AP view of the chest FINDINGS: Cardiac silhouette is enlarged, unchanged. Mild chronic interstitial coarsening without pneumothorax, pleural effusion or overt pulmonary edema. Retrocardiac opacity compatible with large hiatal hernia. Degenerative changes of the shoulders and spine. IMPRESSION: 1. Cardiomegaly without acute process. 2. Large hiatal hernia. The above report was generated using voice recognition software. It may contain grammatical, syntax o r spelling errors. Electronically signed by: Chucky Stoner M.D. 07/09/2019 8:15 AM
[2019-07-09 08:26] LABS: Partial Thromboplastin Ratio 0.9; Partial Thromboplastin Time 23.4 Seconds (21.0-31.0); Prothrombin Time 10.7 Seconds (9.0-12.0)
[2019-07-09 08:30] LABS: Alanine Aminotransferase 27 U/L (12-78); Albumin Level 3.7 gm/dl (3.4-5.0); Aspartate Aminotransferase 22 U/L (15-37); BUN Creatinine Ratio 17.5 (10-20); Blood Urea Nitrogen 27 mg/dl (7-18); Calcium 9.6 mg/dl (8.5-10.1); Carbon Dioxide 24 mmol/L (21-32); Chloride 104 mmol/L (98-107); Est GFR (African American) 48.7; Glucose 154 mg/dl (70-99); Lipase 205 U/L (73-393); Sodium 138 mmol/L (136-145)
[2019-07-09 08:45] LABS: Alkaline Phosphatase 104 U/L (45-117); Bilirubin,Total 1.3 mg/dl (0.2-1); Globulin 3.6 gm/dl (2.5-4.0); Total Protein 7.3 gm/dl (6.4-8.2); Troponin I 0.145 ng/ml (0-0.045)
--- NOTE | 2019-07-09 08:47 | Emergency Department Note ---
Entered by Jonathan Cox acting as a scribe for Garrett Thao DO History of Present Illness General Chief complaint: Chest Pain Stated complaint: CHEST PAIN Time Seen by Provider: 07/09/19 07:29 Source: patient History of Present Illness Provider complaint: Chest pain Onset (ago): hour(s) 1 Location: chest, left and right Radiation: non-radiation Pain Consistency: + constant Maximum Pain Intensity: 4 Current Pain Intensity: 4 Quality: + other (Pressure) Relieved By: + none Exacerbated By: + none Associated symptoms: no headaches, no nausea/vomiting and no shortness of breath The patient is an 83 year old male who presents to the Emergency Room with complaints of constant bilateral chest pain that started this morning about an hour ago. The patient rates the pain as a 4/10 and notes it does not radiate anywhere. The patient states the pain does not get worse with exertion, however nothing seems to help relieve it either. The patient has a history of CAD and an MT that occurred in 2017 where he had a stent placed. The patient adds that his current symptoms do not feel like his previous MT. The patient denies any nausea, vomiting, swelling, headache, or fevers. The patient reports that he has been taking all of his medications as prescribed and follows with Dr. Casa zhang for cardiology. Home Medications Home Medications Medication Instructions Recorded Confirmed Type aspirin [Aspir-81] 81 mg PO QAM 05/22/18 07/09/19 History valacyclovir 500 mg PO QAM 05/22/18 07/09/19 History albuterol sulfate 90 mcg/actuation 1 puffs INHALATION Q6H PRN #1 gm 01/26/19 07/09/19 History aerosol inhaler cholecalciferol (vitamin D3) 2,000 2,000 units PO QAM #30 tab 01/26/19 07/09/19 History unit tablet nitroglycerin 0.4 mg sublingual 0.4 mg SL .COMPLEX tab 01/26/19 07/09/19 History tablet gabapentin 300 mg capsule 300 mg PO HS cap 02/06/19 07/09/19 History amlodipine 5 mg tablet 5 mg PO QAM #30 tab 04/01/19 07/09/19 History ascorbic acid (vitamin C) 500 mg 500 mg PO QAM cap 04/01/19 07/09/19 History capsule calcium carbonate 500 mg (1,250 1 tab PO QAM tab 04/01/19 07/09/19 History mg)-vitamin D3 200 unit tablet cyanocobalamin (vitamin B-12) 1,500 mcg PO QAM tab 04/01/19 07/09/19 History 1,000 mcg tablet desloratadine 5 mg tablet 5 mg PO QAM #90 tab 04/01/19 07/09/19 History prednisolone sodium phosphate 1 % 1 drops OP QID 04/09/19 07/09/19 History eye drops atorvastatin 40 mg PO HS 07/09/19 07/09/19 History clopidogrel 75 mg PO QAM 07/09/19 07/09/19 History duloxetine 60 mg PO QAM 07/09/19 07/09/19 History dutasteride 0.5 mg PO HS 07/09/19 07/09/19 History levothyroxine 100 mcg PO QAM 07/09/19 07/09/19 History losartan 100 mg PO QAM 07/09/19 07/09/19 History metoprolol succinate 100 mg PO QAM 07/09/19 07/09/19 History pantoprazole 20 mg PO QAM 07/09/19 07/09/19 History tadalafil [Cialis] 5 mg PO QAM 07/09/19 07/09/19 History Allergies Allergy/AdvReac Type Severity Reaction Status Date / Time erythromycin base Allergy Intermediate THROAT Verified 07/09/19 08:09 BEGAN TO SWELL SHUT simvastatin Allergy Intermediate Unknown Verified 07/09/19 08:09 atorvastatin AdvReac Intermediate MYALGIAS Verified 07/09/19 08:09 lisinopril AdvReac Intermediate COUGH Verified 07/09/19 08:09 Past Med/Surg History Medical History Anaplasmosis (Resolved) Anemia (Acute) Asthma (Chronic 01/12/13) Asymptomatic stenosis of right carotid artery (Acute) BPH with obstruction/lower urinary tract symptoms (Acute) Chronic osteoarthritis (Acute) Chronic rhinitis (Acute) Coronary artery disease (Acute) Dyslipidemia (Acute) Dyspnea on exertion Ehrlichiosis (Resolved) Enlarged prostate (01/12/13) Erectile dysfunction (Acute) Fecal incontinence (Acute) Gastroesophageal reflux disease (Acute) Hypertension (Chronic) Hypothyroidism (Acute) Lumbar radiculopathy (Acute) Microphallus (Acute) Non-STEMI (non-ST elevated myocardial infarction) NSTEMI (non-ST elevated myocardial infarction) (Resolved) Osteoarthritis (11/29/13) Peripheral arterial disease (Acute) Peripheral neuropathy (Acute) Postherpetic trigeminal neuralgia (Acute) Trigeminal neuralgia Trigger finger, acquired (Acute) Vitamin D deficiency (Acute) Surgical History History of coronary artery stent placement (Resolved) Family History Other Family history non-contributory Social History Preferred Language: Filipino marital status: Current Living Situation: Family Current Living Situation Comment: one son lives with him, has another son and a daughter current occupational status: retired Feels Safe at Home: Yes Smoking Status: Never smoker Hx Alcohol Use: Yes Alcohol Intake Frequency: Daily Alcohol Intake Frequency Comment: 0-1 per day Physical Activity Frequency: Does not Exercise Review of Systems See HPI for pertinent positives & negatives. and A total of 10 systems reviewed and were otherwise negative Physical Exam Vital Signs Vital Signs - 24 hr 07/09/19 07:35 07/09/19 07:50 07/09/19 08:04 Temperature 36.6 C Temperature Source Oral Pulse Rate 125 H Pulse Rate [Right Finger] 102 H Pulse Rhythm Regular Pulse Strength Normal Respiratory Rate 26 H 20 Respiratory Effort / Characteristics Non-Labored Spontaneous Non-Labored Spontaneous Respiratory Depth Normal Respiratory Pattern Regular Blood Pressure 139/84 Blood Pressure [Right Arm] 112/59 L Blood Pressure Mean 102 Blood Pressure Mean [Right Arm] 76 Blood Pressure Position Sitting Pulse Oximetry 98 95 Oxygen Delivery Method Room Air Room Air Room Air Sepsis Recent Fever Within 48 Hours No Sepsis New/Unexplained Change in Mental Status No Sepsis Action Taken by Nursing No Action Required CONSTITUTIONAL/VITAL SIGNS: Reviewed / noted above. GENERAL: Non-toxic in appearance. INTEGUMENTARY: Warm, dry, and [place]. HEAD: Normocephalic. EYES: without scleral icterus or trauma. ENT/OROPHARYNX: clear and moist. LYMPHADENOPATHY/NECK: Is supple without lymphadenopathy or meningismus. RESPIRATORY: Lungs clear and equal. CARDIOVASCULAR: Regular rate and rhythm. GI/ABDOMEN: Soft and nontender. No organomegaly or pulsatile mass. No rebound or guarding. Normal bowel sounds. EXTREMITIES: Warm and well perfused. BACK: No CVA tenderness. NEUROLOGICAL: Intact without focal deficits. PSYCHIATRIC: normal affect. MUSCULOSKELETAL: Normally developed with good muscle tone. Course Course 0740: Past medical records reviewed. The patient was evaluated in room B09 by the resident, Dr. Morris, and a complete history and physical examination were performed. I then performed my own assessment of the patient. 0855: I discussed the patient's case with Xiomara Rasmussen [facility] PAC who is under Dr. Barton [facility] Hospitalist. They agreed to accept the patient for further evaluation. 0903: I reevaluated and reviewed results with the patient. We also discussed the treatment plan which he is in agreement with. Consultations Consultation #1: I discussed the patient's case with Xiomaratheresa Rasmussen [facility] PAC who is under Dr. Barton [facility] Hospitalist. They agreed to accept the patient for further evaluation. Time: 08:55 Administered Medications Discontinued Medications Sodium Chloride (Nss 1000ml) 500 mls @ 999 mls/hr IV .Q31M ONE Stop: 07/09/19 08:25 Last Admin: 07/09/19 08:21 Dose: 999 mls/hr Documented by: [id number] Medical Decision Making Differential Diagnosis Differential diagnoses includes but is not limited to acute coronary syndrome, myocardial infarction, pericarditis, pulmonary embolus, aortic dissection, pneumonia, pneumothorax, musculoskeletal, shingles, esophageal. Medical Records Attestation: I reviewed the patient's medical records. Home Medications Current Medication List: was personally reviewed by me Laboratory Data Attestation: I reviewed the patient's lab results. Result diagrams: 07/09/19 07:57 07/09/19 07:57 Lab Results 07/09/19 07/09/19 07/09/19 Range/Units 07:43 07:57 07:57 WBC 7.76 (4.8-10.8) K/uL RBC 4.46 L (4.7-6.1) M/uL Hgb 14.7 (14.0-18.0) g/dL Hct 42.6 (42-52) % MCV 95.5 (80-100) fL MCH 33.0 (25-34) pg MCHC 34.5 (32-36) g/dL RDW Std Deviation 45.8 (36.4-46.3) fL RDW Coeff of Ross 13.1 (11.5-14.5) % Plt Count 230 (130-400) K/uL MPV 9.0 (7.4-10.4) fL Immature Gran % (Auto) 0.4 % Neut % (Auto) 68.7 % Lymph % (Auto) 15.2 % [place] % (Auto) 9.9 % Eos % (Auto) 5.4 % Baso % (Auto) 0.4 % Immature Gran # (Auto) 0.03 H (0.00-0.02) K/uL Neut # (Auto) 5.33 (1.4-6.5) K/uL Lymph # (Auto) 1.18 L (1.2-3.4) K/uL [place] # (Auto) 0.77 H (0.11-0.59) K/uL Eos # (Auto) 0.42 (0-0.5) K/uL Baso # (Auto) 0.03 (0-0.2) K/uL PT 10.7 (9.0-12.0) Seconds INR 1.0 (0.9-1.1) APTT 23.4 (21.0-31.0) Seconds PTT Ratio 0.9 D-Dimer 740 H* (0-500) ug/L FEU Sodium (136-145) mmol/L Potassium (3.5-5.1) mmol/L Chloride (98-107) mmol/L Carbon Dioxide (21-32) mmol/L Anion Gap (3-11) BUN (7-18) mg/dl Creatinine (0.6-1.4) mg/dl Est Cr Clr Drug Dosing Est GFR ( Amer) Est GFR (Non-Af Amer) BUN/Creatinine Ratio (10-20) Glucose (70-99) mg/dl Calcium (8.5-10.1) mg/dl Total Bilirubin (0.2-1) mg/dl AST (15-37) U/L ALT (12-78) U/L Alkaline Phosphatase (45-117) U/L Troponin I (0-0.045) ng/ml Total Protein (6.4-8.2) gm/dl Albumin (3.4-5.0) gm/dl Globulin (2.5-4.0) gm/dl Albumin/Globulin Ratio (0.9-2) Lipase (73-393) U/L 07/09/19 Range/Units 07:57 WBC (4.8-10.8) K/uL RBC (4.7-6.1) M/uL Hgb (14.0-18.0) g/dL Hct (42-52) % MCV (80-100) fL MCH (25-34) pg MCHC (32-36) g/dL RDW Std Deviation (36.4-46.3) fL RDW Coeff of Ross (11.5-14.5) % Plt Count (130-400) K/uL MPV (7.4-10.4) fL Immature Gran % (Auto) % Neut % (Auto) % Lymph % (Auto) % [place] % (Auto) % Eos % (Auto) % Baso % (Auto) % Immature Gran # (Auto) (0.00-0.02) K/uL Neut # (Auto) (1.4-6.5) K/uL Lymph # (Auto) (1.2-3.4) K/uL [place] # (Auto) (0.11-0.59) K/uL Eos # (Auto) (0-0.5) K/uL Baso # (Auto) (0-0.2) K/uL PT (9.0-12.0) Seconds INR (0.9-1.1) APTT (21.0-31.0) Seconds PTT Ratio D-Dimer (0-500) ug/L FEU Sodium 138 (136-145) mmol/L Potassium 4.0 (3.5-5.1) mmol/L Chloride 104 (98-107) mmol/L Carbon Dioxide 24 (21-32) mmol/L Anion Gap 10.0 (3-11) BUN 27 H (7-18) mg/dl Creatinine 1.53 H (0.6-1.4) mg/dl Est Cr Clr Drug Dosing Not Reportable Est GFR ( Amer) 48.7 Est GFR (Non-Af Amer) 42.0 BUN/Creatinine Ratio 17.5 (10-20) Glucose 154 H (70-99) mg/dl Calcium 9.6 (8.5-10.1) mg/dl Total Bilirubin 1.3 H (0.2-1) mg/dl AST 22 (15-37) U/L ALT 27 (12-78) U/L Alkaline Phosphatase 104 (45-117) U/L Troponin I 0.145 H* (0-0.045) ng/ml Total Protein 7.3 (6.4-8.2) gm/dl Albumin 3.7 (3.4-5.0) gm/dl Globulin 3.6 (2.5-4.0) gm/dl Albumin/Globulin Ratio 1.0 (0.9-2) Lipase 205 (73-393) U/L Imaging Data Radiologist's Impression: Radiology results as stated below per my review and the radiologist's interpretation: XR chest 1V portable HISTORY: 83 years-old Male Chest Pain acute atypical chest pain COMPARISON: Chest radiograph 10/12/2017 TECHNIQUE: Portable AP view of the chest FINDINGS: Cardiac silhouette is enlarged, unchanged. Mild chronic interstitial coarsening without pneumothorax, pleural effusion or overt pulmonary edema. Retrocardiac opacity compatible with large hiatal hernia. Degenerative changes of the shoulders and spine. IMPRESSION: 1. Cardiomegaly without acute process. 2. Large hiatal hernia. The above report was generated using voice recognition software. It may contain grammatical, syntax or spelling errors. Electronically signed by: Chucky Stoner M.D. 07/09/2019 8:15 AM ECG Data Attestation: I personally reviewed and interpreted this ECG as follows: Indication: + chest pain Rate (beats per minute): 115 Rhythm: + sinus tachycardia ECG ST segments: + ST depression (Lateral) ECG Findings: + PVCs Comparison ECG Date: from (10/14/17) Change: the following changes noted (PVCs are new) Blood Pressure Blood Pressure Findings: Low blood pressure Blood Pressure Disposition: further management by hospitalist SURAJ Mei This is an 83-year-old male who presents to the ED with a chief complaint of pain pressure that started around 6:30 in the morning. He denied it being worse with exertion. The patient states that it is in the anterior bilateral chest without radiation. He does have some baseline shortness of breath and states that this is no different than his baseline. He denies the symptoms feeling like a prior MT. The patient's initial vital signs revealed tachycardia with a heart rate of 125. A twelve-lead EKG shows a sinus tach at a rate of 125. The patient's exam was unremarkable. Vital signs revealed a heart rate of 125 although this improved to 106 when I saw the patient prior to fluids. His blood pressure was normal. The patient's chest x-ray reveals a large hiatal hernia but nothing acute. Chemistry panel reveals a BUN of 27 and creatinine of 1.53. CBC was unremarkable. Troponin is slightly elevated 0.083. I did review the patient's previous troponins and they appear to be elevated as well. Once in 2017 and once in 2018. The patient did have a cardiac cath in 2018 that revealed that the stents were patent. I spoke with the hospitalist about the patient as it is unclear if he chronically has elevated troponins or if this is a new event. He was treated with aspirin p.o. The patient appears to be stable at this time. Impression & Plan Chest pain, Elevated troponin Discharge Plan Visit Data Chief Complaint: Chest Pain Stated Complaint: CHEST PAIN ED Provider: Garrett Thao ED Midlevel Provider: Linda Morris Discharge Problem: Chest pain, Elevated troponin Patient Disposition: Being Evaluated by Hospitalist Forms Stand Alone Forms: My [facility] Prescriptions Prescriptions: No Action prednisolone sodium phosphate 1 % drops 1 drops OP QID RF: 0 nitroglycerin 0.4 mg tablet, sublingual 0.4 mg SL .COMPLEX RF: 0 cholecalciferol (vitamin D3) 2,000 unit tablet 2,000 units PO QAM Qty: 30 RF: 0 albuterol sulfate 90 mcg/actuation HFA aerosol inhaler 1 puffs inhalation Q6H PRN (Reason: shortness of breath or wheezing) Qty: 1 RF: 0 amlodipine 5 mg tablet 5 mg PO QAM Qty: 30 RF: 0 ascorbic acid (vitamin C) 500 mg capsule 500 mg PO QAM RF: 0 calcium carbonate-vitamin D3 500 mg(1,250mg) -200 unit tablet 1 tab PO QAM RF: 0 cyanocobalamin (vitamin B-12) 1,000 mcg tablet 1,500 mcg PO QAM RF: 0 desloratadine 5 mg tablet 5 mg PO QAM Qty: 90 RF: 0 atorvastatin 40 mg tablet 40 mg PO HS RF: 0 metoprolol succinate 100 mg tablet extended release 24 hr 100 mg PO QAM RF: 0 clopidogrel 75 mg tablet 75 mg PO QAM RF: 0 pantoprazole 20 mg tablet,delayed release (DR/EC) 20 mg PO QAM RF: 0 levothyroxine 100 mcg tablet 100 mcg PO QAM RF: 0 losartan 100 mg tablet 100 mg PO QAM RF: 0 dutasteride 0.5 mg capsule 0.5 mg PO HS RF: 0 tadalafil [Cialis] 5 mg tablet 5 mg PO QAM RF: 0 duloxetine 60 mg capsule,delayed release(DR/EC) 60 mg PO QAM RF: 0 valacyclovir 500 mg tablet 500 mg PO QAM RF: 0 aspirin [Aspir-81] 81 mg Tablet,Delayed Release (Dr/Ec) 81 mg PO QAM RF: 0 gabapentin 300 mg capsule 300 mg PO HS RF: 0 Referrals Referrals: Catrachita Cardenas MD [Primary Care Provider] - Discharge Problem: Chest pain Qualifiers: Chest pain type: unspecified Qualified Code(s): R07.9 - Chest pain, unspecified The scribe's documentation has been prepared under my direction and personally reviewed by me in its entirety. I confirm that the note above accurately reflects all work, treatment, procedures, and medical decision making performed by me.
[2019-07-09] MEDS ORDERED: ASPIRIN CHEW 324 MG PO STA (08:48)
[2019-07-09] MEDS ORDERED: HEPARIN SODIUM/DEXTROSE 25,000 UNITS/500 ML BAG IV SCH (09:00)
[2019-07-09 09:01] LABS: D Dimer 740 ug/L FEU (0-500)
[2019-07-09] MEDS ORDERED: HEPARIN 25000 UNIT/500 ML D5W IV ONE (09:13)
--- NOTE | 2019-07-09 09:14 | History & Physical Report ---
Date of Service July 09, 2019 Assessment & Plan (1) Chest pain: (2) Elevated troponin: - Admit to [facility] with tele for obs - Trend cardiac biomarkers, initial set = 0.145, next set at 1400 - EKG reviewed as above, does not appear to be changed compared to previous with minor anterior lateral ST wave involvement - Check 2 D echo - Started heparin gtt + bolus in the ER, continue - PT/OT consulted - Follows with Dr. Lara as an outpatient, consultation, follow-up upon discharge needed (3) Coronary artery disease: (4) NSTEMI (non-ST elevated myocardial infarction): - History of such on 07/29/2017, anterolateral, cardiac cath completed at [facility] because of high risk. S/p SHIRIN x 2 in ostial to mid LAD and SHIRIN x 1 in ostial/proximal circumflex. - Cont Plavix and asa (5) Dyslipidemia: - Cont statin therapy (6) Asthma: - Former smoker - Cont albuterol prn, no current O2 needs (7) Hypertension: - Cont losartan 100 mg QAM, metoprolol succ 100 mg QAM, amlodipine 5 mg QAM (8) Peripheral arterial disease: - Stable (9) SHAMIR (acute kidney injury): -Creatinine slightly bumped today, 1.5, compared to baseline of 1.1-1.2 -Hold amlodipine -IVF in ER, 500 mL bolus, will receive fluids through heparin infusion, if no plans for cardiac cath and encourage p.o. 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 Was hospitalized d/t developed multiorgan involvement including renal failure for which he was on temporary dialysis and developed cardiac involvement with an elevated troponin. 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 Pt presents with acute onset of chest pain which began around 0630 this morning. He reports the onset began while he was driving on his way to the gym with substernal chest pain rated a 4-5/10, chest pressure and indigestion-like feeling. He did not participate in gym activity and brought himself to the ER. He denies any other radiation of pain. He denies any specific shortness of breath. He reports this does not feel as significant as previous NSTEMI which he sustained in 2017. He denies any worsening in ability to participate in physical activity over the last few days, no swelling peripherally. He does follow with cardiology, Dr. Lara as an outpatient. Patient's chart, troponin is slightly elevated at 0.145. Cr= 1.53 where baseline is 1.1- 1.2. Allergies Allergy/AdvReac Type Severity Reaction Status Date / Time erythromycin base Allergy Intermediate THROAT Verified 07/09/19 08:09 BEGAN TO SWELL SHUT simvastatin Allergy Intermediate Unknown Verified 07/09/19 08:09 atorvastatin AdvReac Intermediate MYALGIAS Verified 07/09/19 08:09 lisinopril AdvReac Intermediate COUGH Verified 07/09/19 08:09 Home Medications Home Medications Medication Instructions Recorded Confirmed Type aspirin [Aspir-81] 81 mg PO QAM 05/22/18 07/09/19 History valacyclovir 500 mg PO QAM 05/22/18 07/09/19 History albuterol sulfate 90 mcg/actuation 1 puffs INHALATION Q6H PRN #1 gm 01/26/19 07/09/19 History aerosol inhaler cholecalciferol (vitamin D3) 2,000 2,000 units PO QAM #30 tab 01/26/19 07/09/19 History unit tablet nitroglycerin 0.4 mg sublingual 0.4 mg SL .COMPLEX tab 01/26/19 07/09/19 History tablet gabapentin 300 mg capsule 300 mg PO HS cap 02/06/19 07/09/19 History amlodipine 5 mg tablet 5 mg PO QAM #30 tab 04/01/19 07/09/19 History ascorbic acid (vitamin C) 500 mg 500 mg PO QAM cap 04/01/19 07/09/19 History capsule calcium carbonate 500 mg (1,250 1 tab PO QAM tab 04/01/19 07/09/19 History mg)-vitamin D3 200 unit tablet cyanocobalamin (vitamin B-12) 1,500 mcg PO QAM tab 04/01/19 07/09/19 History 1,000 mcg tablet desloratadine 5 mg tablet 5 mg PO QAM #90 tab 04/01/19 07/09/19 History prednisolone sodium phosphate 1 % 1 drops OP QID 04/09/19 07/09/19 History eye drops atorvastatin 40 mg PO HS 07/09/19 07/09/19 History clopidogrel 75 mg PO QAM 07/09/19 07/09/19 History duloxetine 60 mg PO QAM 07/09/19 07/09/19 History dutasteride 0.5 mg PO HS 07/09/19 07/09/19 History levothyroxine 100 mcg PO QAM 07/09/19 07/09/19 History losartan 100 mg PO QAM 07/09/19 07/09/19 History metoprolol succinate 100 mg PO QAM 07/09/19 07/09/19 History pantoprazole 20 mg PO QAM 07/09/19 07/09/19 History tadalafil [Cialis] 5 mg PO QAM 07/09/19 07/09/19 History Past Med/Surg History Medical History Anaplasmosis (Resolved) Anemia (Acute) Asthma (Chronic 01/12/13) Asymptomatic stenosis of right carotid artery (Acute) BPH with obstruction/lower urinary tract symptoms (Acute) Chronic osteoarthritis (Acute) Chronic rhinitis (Acute) Coronary artery disease (Acute) Dyslipidemia (Acute) Dyspnea on exertion Ehrlichiosis (Resolved) Enlarged prostate (01/12/13) Erectile dysfunction (Acute) Fecal incontinence (Acute) Gastroesophageal reflux disease (Acute) Hypertension (Chronic) Hypothyroidism (Acute) Lumbar radiculopathy (Acute) Microphallus (Acute) Non-STEMI (non-ST elevated myocardial infarction) NSTEMI (non-ST elevated myocardial infarction) (Resolved) Osteoarthritis (11/29/13) Peripheral arterial disease (Acute) Peripheral neuropathy (Acute) Postherpetic trigeminal neuralgia (Acute) Trigeminal neuralgia Trigger finger, acquired (Acute) Vitamin D deficiency (Acute) Surgical History History of coronary artery stent placement (Resolved) Family History Other Family history non-contributory Social History Preferred Language: Lao Communication Ability: Effective 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 current occupational status: retired Other Information That Helps Us Care for You: No Feels Safe at Home: Yes Smoking Status: Never smoker Do You Dip or Chew Tobacco: No ; Hx Alcohol Use: Yes Alcohol type: beer, wine and hard liquor Alcohol Intake Frequency: Daily Alcohol Intake Frequency Comment: 0-1 per day Hx Substance Use: No Physical Activity Frequency: Does not Exercise Review of Systems Review of Systems: Constitutional: No fever, sweats or chills Eyes: No diplopia, no worsening or blurred vision ENT: normal hearing, no trouble swallowing Respiratory: No cough, sputum, dyspnea at rest or on exertion Cardiovascular: As per HPI Abdomen: No pain, nausea, vomiting, diarrhea or constipation Musculoskeletal: No joint pain, calf pain, swelling Neurologic: No weakness, + mild neuropathy in feet, no balance problems Psychiatric: No anxiety or depression, on medication Skin: No rash or itch, + left eye herpetic neuralgia Physical Exam Physical Exam: General: awake, alert, no apparent distress, + morbidly obese Head: Normocephalic, atraumatic ENT: PERRL, EOMI, no pharyngeal exudate, mucous membranes moist Chest: Clear to auscultation, on room air, no adventitious breath sounds Cardiac: + Sinus tach, no murmur, no JVD, normal peripheral pulses, good capillary refill Abdominal: NABS x 4 quadrants, soft, nondistended, nontender to palpation, no r ebound, guarding or tenderness Extremities: Normal inspection, no peripheral edema or erythema, calfs nontender to palpation Psych: Normal mood and affect Neuro: AAO x 3, strength intact bilaterally and related 5/5, no motor deficits, speech is clear, no peripheral sensory deficits Skin: no rash or erythema Results & Data Vital Signs (Past 12 Hours) Vital Signs Temp Pulse Pulse Resp BP BP Pulse Ox 07/09/19 08:04 102 H 20 112/59 L 95 07/09/19 07:35 36.6 C 125 H 26 H 139/84 98 Diagnostic Findings XR chest 1V portable HISTORY: 83 years-old Male Chest Pain acute atypical chest pain COMPARISON: Chest radiograph 10/12/2017 TECHNIQUE: Portable AP view of the chest FINDINGS: Cardiac silhouette is enlarged, unchanged. Mild chronic interstitial coarsening without pneumothorax, pleural effusion or overt pulmonary edema. Retrocardiac opacity compatible with large hiatal hernia. Degenerative changes of the shoulders and spine. IMPRESSION: 1. Cardiomegaly without acute process. 2. Large hiatal hernia. ECG Additional Comments: 09-JUL-2019 07:34:09 [facility]-EDSTAT ROUTINE RETRIEVAL Sinus tachycardia with occasional Premature ventricular complexes Nonspecific ST and T wave abnormality Abnormal ECG When compared with ECG of 14-OCT-2017 06:27, Premature ventricular complexes are now Present 25mm/s 10mm/mV 150Hz 9.0.9 12SL 241 TIMO: 13 Referred by: REFERRED SELF Unconfirmed Vent. rate 115 BPM HI interval 168 ms QRS duration 74 ms QT/QTc 336/464 ms P-R-T axes 17 15 95 Code Status & VTE Plan Code Status Full code-discussed with the patient at bedside Supervising Physician Co-Signing Physician Notes During my face to face encounter, I performed a history and phsycial examination. I reviewed above document and agree with it. Patient appears to have features of unstable angina. This is concerning given his significant history of Coronary artery disease. Patient will be NPO after midnight with a cardiac cath scheduled for tomorrow. Trop has been gradually increasing, now to 0.3 Likely NSTEMI. Will continue heparin drip at this time. PG Care Time/CCT Total # of Minutes Spent Total Time Spent with Patient: Total time spent is greater than 50% in coordination of care (as documented) at patient's floor/unit and/or counseling patient: (1) Chest pain Chest pain type: unspecified Qualified Code(s): R07.9 - Chest pain, unspecified
[2019-07-09] MEDS: HEPARIN SOD 5,000 UNIT/0.5 ML VIAL ONE ×2 (10:00→10:16)
[2019-07-09] MEDS ORDERED: HEPARIN SOD (PORCINE) 1000 UNIT/ML 10 ML VIAL ONE (10:03)
[2019-07-09] MEDS ORDERED: ALBUTEROL HFA 8 GM INHALER INH PRN (12:19)
[2019-07-09] MEDS ORDERED: ONDANSETRON INJ 2 MG/ML 2 ML VIAL IV PRN (12:19)
[2019-07-09] MEDS ORDERED: ACETAMINOPHEN 325 MG TAB PO PRN (12:19)
[2019-07-09] MEDS ORDERED: NITROGLYCERIN SL 0.4 MG/TAB TAB SL PRN (12:19)
[2019-07-09] MEDS: prednisoLONE sod phos 1% 10 ML BTL OP SCH ×3 (13:35→20:17)
--- NOTE | 2019-07-09 14:06 | Cardiology Consultation ---
Date of Consultation July 09, 2019 Assessment & Plan (1) Chest pain: His chest discomfort is worrisome, especially because he feels that this is similar to what he had at his initial presentation. It lasted for quite a while and did not occur with exercise so if it is cardiac it suggestive of unstable angina. (2) Coronary artery disease: He has known quite severe coronary artery disease so it would not be surprising if he has pain and progression. The unstable nature of it (rest pain) however is worrisome and new. (3) Elevated troponin: His troponin did increase somewhat, it was fairly low on admission (0.145) but now increased to 0.345 on the most recent. This is worrisome in view of his chest discomfort. I would like to wait for the another troponin, since he is pain-free I think we can wait. I am going to talk to Dr. Joya to see if he thinks we should perform catheterization when we get the results of this last troponin. I am going to make him n.p.o. (4) Hypertension: His blood pressure appears very labile with quite high readings as well as somewhat low readings. We will need to watch this closely, we may have to adjust his medications somewhat. He is on good doses of metoprolol and losartan as an outpatient and low-dose amlodipine. The pattern does not really appear to be dose related. History of Present Illness Reason for Consultation: This is a 83-year-old gentleman with no prior cardiac history who was having no difficulty with exertion until 12/17/2016. At that time he developed a febrile illness, and he presented to the emergency room on 12/20/2016 with continued symptoms. He was hospitalized and had a difficult course due to apparent infection with ehrlichia from a tick bite. That course was complicated by multiorgan involvement including renal for which he was on dialysis temporarily, as well as apparent cardiac involvement with an elevated troponin. His troponin peaked at 18.5 on 12/21/2016 and 9 days later was 0.63. He had no chest discomfort and his echocardiogram done on 12/21/2016 showed mild left ventricular hypertrophy with hyperdynamic left ventricular function. The echo was repeated on 12/31/2016 with similar findings. Of note, he has had stress tests in the past, most recently prior to thi a treadmill stress test on 09/04/2015 where he achieved 86% of his predicted maximal heart rate and had no evidence of ischemia. He recovered from this episode and was doing well (other than a bout of pneumonia) when he developed substernal chest pressure, presented to his physician's office on 07/29/2017 where an electrocardiogram showed ischemia and he was sent to the emergency room. Catheterization showed significant disease in the left system, it was amenable to stent placement but surgical treatment was felt to be a better option and he was referred to [facility]. At [place] for a number of reasons (including his preference) stent placement in the LAD and circumflex was performed. He was discharged on 08/04/2017. He was also identified as having a 70% right carotid artery stenosis. He was hospit alized subsequently with chest discomfort and a mild troponin elevation, catheterization was done October 14, 2017 however that showed no significant progression of large vessel disease and the stents were patent. A subsequent pharmacologic echo stress test January 09, 2019 was negative for ischemia. He has been very active lately, he goes to the gym 3 times a week and although it is silver sneakers he tells me it is quite strenuous and he breaks into a sweat when he does it and he has been having no difficulty with that. His last exercise was 3 days ago. He then got in the car to go to the gym today, he developed a substernal chest pressure which was reminiscent of his prior discomfort. He was worried about it and he came into the emergency room. He thinks the episode lasted about 4 hours, he did take several nitroglycerin with no significant relief. He is now pain-free and feels well. He has had no other symptoms such as dyspnea on exertion, orthopnea, PND. Attending Physician: Xander Barton Allergies Allergy/AdvReac Type Severity Reaction Status Date / Time erythromycin base Allergy Intermediate THROAT Verified 07/09/19 08:09 BEGAN TO SWELL SHUT simvastatin Allergy Intermediate Unknown Verified 07/09/19 08:09 atorvastatin AdvReac Intermediate MYALGIAS Verified 07/09/19 08:09 lisinopril AdvReac Intermediate COUGH Verified 07/09/19 08:09 Home Medications Home Medications Medication Instructions Recorded Confirmed Type aspirin [Aspir-81] 81 mg PO QAM 05/22/18 07/09/19 History valacyclovir 500 mg PO QAM 05/22/18 07/09/19 History albuterol sulfate 90 mcg/actuation 1 puffs INHALATION Q6H PRN #1 gm 01/26/19 07/09/19 History aerosol inhaler cholecalciferol (vitamin D3) 2,000 2,000 units PO QAM #30 tab 01/26/19 07/09/19 History unit tablet nitroglycerin 0.4 mg sublingual 0.4 mg SL .COMPLEX tab 01/26/19 07/09/19 History tablet gabapentin 300 mg capsule 300 mg PO HS cap 02/06/19 07/09/19 History amlodipine 5 mg tablet 5 mg PO QAM #30 tab 04/01/19 07/09/19 History ascorbic acid (vitamin C) 500 mg 500 mg PO QAM cap 04/01/19 07/09/19 History capsule calcium carbonate 500 mg (1,250 1 tab PO QAM tab 04/01/19 07/09/19 History mg)-vitamin D3 200 unit tablet cyanocobalamin (vitamin B-12) 1,500 mcg PO QAM tab 04/01/19 07/09/19 History 1,000 mcg tablet desloratadine 5 mg tablet 5 mg PO QAM #90 tab 04/01/19 07/09/19 History prednisolone sodium phosphate 1 % 1 drops OP QID 04/09/19 07/09/19 History eye drops atorvastatin 40 mg PO HS 07/09/19 07/09/19 History clopidogrel 75 mg PO QAM 07/09/19 07/09/19 History duloxetine 60 mg PO QAM 07/09/19 07/09/19 History dutasteride 0.5 mg PO HS 07/09/19 07/09/19 History levothyroxine 100 mcg PO QAM 07/09/19 07/09/19 History losartan 100 mg PO QAM 07/09/19 07/09/19 History metoprolol succinate 100 mg PO QAM 07/09/19 07/09/19 History pantoprazole 20 mg PO QAM 07/09/19 07/09/19 History tadalafil [Cialis] 5 mg PO QAM 07/09/19 07/09/19 History Patient History Medical History Anaplasmosis (Resolved) Anemia (Acute) Asthma (Chronic 01/12/13) Asymptomatic stenosis of right carotid artery (Acute) BPH with obstruction/lower urinary tract symptoms (Acute) Chronic osteoarthritis (Acute) Chronic rhinitis (Acute) Coronary artery disease (Acute) Dyslipidemia (Acute) Dyspnea on exertion Ehrlichiosis (Resolved) Enlarged prostate (01/12/13) Erectile dysfunction (Acute) Fecal incontinence (Acute) Gastroesophageal reflux disease (Acute) Hypertension (Chronic) Hypothyroidism (Acute) Lumbar radiculopathy (Acute) Microphallus (Acute) Non-STEMI (non-ST elevated myocardial infarction) NSTEMI (non-ST elevated myocardial infarction) (Resolved) Osteoarthritis (11/29/13) Peripheral arterial disease (Acute) Peripheral neuropathy (Acute) Postherpetic trigeminal neuralgia (Acute) Trigeminal neuralgia Trigger finger, acquired (Acute) Vitamin D deficiency (Acute) Surgical History History of coronary artery stent placement (Resolved) Family History Other Family history non-contributory Social History Preferred Language: Cook Islander Communication Ability: Effective 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 current occupational status: retired Other Information That Helps Us Care for You: No Feels Safe at Home: Yes Smoking Status: Never smoker Do You Dip or Chew Tobacco: No ; Hx Alcohol Use: Yes Alcohol type: beer, wine and hard liquor Alcohol Intake Frequency: Daily Alcohol Intake Frequency Comment: 0-1 per day Hx Substance Use: No Physical Activity Frequency: Does not Exercise Physical Exam Physical Exam: Constitutional: Alert, cooperative and in no distress. HEENT: Unremarkable Neck: No jugular venous distention, carotid pulses are normal and equal bilaterally without bruits. Pulmonary: Clear to auscultation bilaterally. Cardiac: Regular rhythm with no murmur, gallop or rub. Abdomen: Soft, nontender with normal bowel sounds. Extremities: No edema. Distal pulses intact. Neurologic: No focal findings. Gait is steady. Skin: No rash, ecchymoses or petechiae. Results & Data Vital Signs (Past 12 Hours) Vital Signs Temp Pulse Pulse Resp BP BP Pulse Ox 07/09/19 11:41 37 C 82 18 159/80 H 97 11/18/19 10:31 82 35 H 101/77 95 07/09/19 10:30 82 19 94 07/09/19 10:01 85 23 07/09/19 10:00 85 23 154/77 H 07/09/19 09:57 90 26 H 169/80 H 07/09/19 09:56 89 36 H 07/09/19 09:20 96 07/09/19 09:01 85 28 H 95 07/09/19 09:00 87 29 H 175/80 H 95 07/09/19 08:31 96 H 26 H 93 07/09/19 08:30 102 H 23 142/93 H 93 07/09/19 08:04 102 H 20 112/59 L 95 07/09/19 08:01 104 H 22 93 07/09/19 08:00 104 H 21 112/59 L 96 07/09/19 07:57 108 H 20 134/53 L 94 07/09/19 07:39 111 H 28 H 93 07/09/19 07:35 36.6 C 125 H 26 H 139/84 98 Laboratory Results Abnormal lab results 07/09/19 07/09/19 07/09/19 Range/Units 07:43 07:57 07:57 RBC 4.46 L (4.7-6.1) M/uL Immature Gran # (Auto) 0.03 H (0.00-0.02) K/uL Lymph # (Auto) 1.18 L (1.2-3.4) K/uL [place] # (Auto) 0.77 H (0.11-0.59) K/uL D-Dimer 740 H* (0-500) ug/L FEU BUN 27 H (7-18) mg/dl Creatinine 1.53 H (0.6-1.4) mg/dl Glucose 154 H (70-99) mg/dl Total Bilirubin 1.3 H (0.2-1) mg/dl Troponin I 0.145 H* (0-0.045) ng/ml 07/09/19 Range/Units 15:52 RBC (4.7-6.1) M/uL Immature Gran # (Auto) (0.00-0.02) K/uL Lymph # (Auto) (1.2-3.4) K/uL [place] # (Auto) (0.11-0.59) K/uL D-Dimer (0-500) ug/L FEU BUN (7-18) mg/dl Creatinine (0.6-1.4) mg/dl Glucose (70-99) mg/dl Total Bilirubin (0.2-1) mg/dl Troponin I 0.343 H* (0-0.045) ng/ml Diagnostic Findings His electrocardiogram on arrival this morning shows sinus tachycardia at [address]-T abnormalities and one premature ventricular beat. Telemetry: Sinus rhythm with PVCs His echocardiogram done today shows normal left ventricular size with mild left ventricular hypertrophy. Similar to October 14, 2017. PG Care Time/CCT Total # of Minutes Spent Total Time Spent with Patient: Total time spent is greater than 50% in coordination of care (as documented) at patient's floor/unit and/or counseling patient: (1) Chest pain Chest pain type: unspecified Qualified Code(s): R07.9 - Chest pain, unspecified
[2019-07-09 18:05] LABS: Partial Thromboplastin Ratio 2.6
[2019-07-09 18:44] LABS: Partial Thromboplastin Time 70.1 Seconds (21.0-31.0)
[2019-07-09] MEDS ORDERED: GABAPENTIN 300 MG CAP PO SCH (21:00)
[2019-07-09] MEDS ORDERED: ATORVASTATIN 40 MG TAB PO SCH (21:00)
[2019-07-10 01:04] LABS: Hematocrit (blood only) 37.8 % (42-52); Hemoglobin 13.3 g/dL (14.0-18.0); Mean Corpuscular Hgb Conc 35.2 g/dL (32-36); Mean Corpuscular Volume 93.8 fL (80-100); Mean Platelet Volume 8.9 fL (7.4-10.4); Platelet Count 193 K/uL (130-400); RDW Coefficient of Variation 13.1 % (11.5-14.5); RDW Standard Deviation 45.3 fL (36.4-46.3); Red Blood Count 4.03 M/uL (4.7-6.1); White Blood Count 7.01 K/uL (4.8-10.8)
[2019-07-10 01:22] LABS: Albumin Level 3.2 gm/dl (3.4-5.0); BUN Creatinine Ratio 16.6 (10-20); Calcium 8.6 mg/dl (8.5-10.1); Est GFR (African American) 50.7; Est GFR (Non-African American) 43.7; Potassium 4.2 mmol/L (3.5-5.1)
[2019-07-10 01:23] LABS: Partial Thromboplastin Ratio 2.6
[2019-07-10 01:24] LABS: Albumin Globulin Ratio 1.1 (0.9-2); Bilirubin,Total 0.9 mg/dl (0.2-1); Total Protein 6.2 gm/dl (6.4-8.2)
[2019-07-10 01:30] LABS: Partial Thromboplastin Time 70.4 Seconds (21.0-31.0)
[2019-07-10] MEDS ORDERED: Heparin IV Standard *NO* Bolus IV ONE (03:16)
[2019-07-10] MEDS ORDERED: HEPARIN SODIUM/DEXTROSE 25,000 UNITS/500 ML BAG IV SCH (03:30)
[2019-07-10 06:14] LABS: Estimated Average Glucose 117 mg/dl; Hemoglobin A1C 5.7 % (4.5-5.6)
[2019-07-10] MEDS ORDERED: LEVOTHYROXINE SODIUM 100 MCG TABLET PO SCH (06:30)
[2019-07-10 07:58] LABS: Partial Thromboplastin Ratio 2.9
[2019-07-10] MEDS: prednisoLONE sod phos 1% 10 ML BTL OP SCH ×3 (08:27→15:50)
[2019-07-10] MEDS ORDERED: METOPROLOL SUCC 50MG EXT REL TAB PO SCH (09:00)
[2019-07-10] MEDS ORDERED: PANTOprazole 40 MG TAB PO SCH (09:00)
[2019-07-10] MEDS ORDERED: CLOPIDOGREL BISULFATE 75 MG TAB PO SCH (09:00)
[2019-07-10] MEDS ORDERED: CALCIUM 600MG + VIT D 400 IU TAB PO SCH (09:00)
[2019-07-10] MEDS ORDERED: ASCORBIC ACID 500 MG TAB PO SCH (09:00)
[2019-07-10] MEDS ORDERED: CHOLECALCIFEROL 1,000 UNITS TAB PO SCH (09:00)
[2019-07-10] MEDS ORDERED: ASPIRIN 81 MG ECTAB PO SCH (09:00)
[2019-07-10] MEDS ORDERED: LORATADINE 10 MG TAB PO SCH (09:00)
[2019-07-10] MEDS ORDERED: VALACYCLOVIR HCL 500 MG TABLET PO SCH (09:00)
[2019-07-10] MEDS ORDERED: CYANOCOBALAMIN 500 MCG TABLET (VITAMIN B-12) PO SCH (09:00)
[2019-07-10] MEDS ORDERED: DULOXETINE HCL 60 MG CAP PO SCH (09:00)
[2019-07-10] MEDS ORDERED: LOSARTAN POTASSIUM 50 MG TAB PO SCH (09:00)
[2019-07-10 15:01] LABS: Partial Thromboplastin Ratio 2.4
--- NOTE | 2019-07-10 17:07 | Cardiology Progress Note ---
Date of Service July 10, 2019 Assessment & Plan (1) Chest pain: His chest discomfort is worrisome, especially because he feels that this is similar to what he had at his initial presentation. It lasted for quite a while and did not occur with exercise so if it is cardiac it suggestive of unstable angina. We did review his last catheterization and since he has had no further symptoms and his cardiac enzymes have not trended particularly we feel stress testing is reasonable. I am going to arrange for an outpatient nuclear stress test, pharmacologic since he cannot walk on a treadmill. (2) Coronary artery disease: He has known quite severe coronary artery disease so it would not be surprising if he has pain and progression. In the past however he has had discomfort which was not clearly associate with progressive disease. (3) Elevated troponin: His troponin did increase somewhat, it was fairly low on admission (0.145) but then increased to 0.345 but was stable on the most recent. This is nonspecific and overall fairly low. I do not think this is indicative of a non- ST segment elevation myocardial infarction. (4) Hypertension: His blood pressure appears very labile with quite high readings as well as somewhat low readings. We will need to watch this closely, we may have to adjust his medications somewhat. He is on good doses of metoprolol and losartan as an outpatient and low-dose amlodipine. The pattern does not really appear to be dose related. Subjective He has been feeling well since yesterday, no further chest discomfort or other anginal symptoms. Physical Exam Physical Exam: Constitutional: Alert, cooperative and in no distress. HEENT: Unremarkable Neck: No jugular venous distention, carotid pulses are normal and equal bilaterally without bruits. Pulmonary: Clear to auscultation bilaterally. Cardiac: Regular rhythm with no murmur, gallop or rub. Abdomen: Soft, nontender with normal bowel sounds. Extremities: No edema. Distal pulses intact. Neurologic: No focal findings. Gait is steady. Skin: No rash, ecchymoses or petechiae. Results & Data Vital Signs (Past 12 Hours) Vital Signs Temp Pulse Resp BP Pulse Ox 07/10/19 15:32 36.4 C L 61 18 137/73 96 07/10/19 11:17 36.5 C 65 18 155/79 H 95 07/10/19 08:00 36.7 C 87 19 158/82 H 94 Diagnostic Findings His electrocardiogram today shows sinus rhythm with lateral ST-T abnormalities, not a lot different than before. Telemetry: Sinus rhythm, no significant arrhythmia PG Care Time/CCT Total # of Minutes Spent Total Time Spent with Patient: Total time spent is greater than 50% in coordination of care (as documented) at patient's floor/unit and/or counseling patient: (1) Chest pain Chest pain type: unspecified Qualified Code(s): R07.9 - Chest pain, unspecified
--- NOTE | 2019-07-11 08:55 | Discharge Summary ---
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 Pt presents with acute onset of chest pain which began around 0630 this morning. He reports the onset began while he was driving on his way to the gym with substernal chest pain rated a 4-5/10, chest pressure and indigestion-like feelin g. He did not participate in gym activity and brought himself to the ER. He denies any other radiation of pain. He denies any specific shortness of breath. He reports this does not feel as significant as previous NSTEMI which he sustained in 2017. He denies any worsening in ability to participate in physical activity over the last few days, no swelling peripherally. He does follow with cardiology, Dr. Lara as an outpatient. Patient's chart, troponin is slightly elevated at 0.145. Cr= 1.53 where baseline is 1.1- 1.2. Principal Diagnosis chest pain Discharge Exam General: awake, alert, no apparent distress, + morbidly obese Head: Normocephalic, atraumatic ENT: EOMI, Chest: mpt using accesory muscle to breath Cardiac: normal rate Abdominal: nondistended Extremities: Normal inspection Psych: Normal mood and affect Neuro: AAO x 3, strength intact bilaterally and related 5/5, no motor deficits, speech is clear Skin: no rash or erythema Discharge Data Allergies Allergy/AdvReac Type Severity Reaction Status Date / Time erythromycin base Allergy Intermediate THROAT Verified 07/09/19 08:09 BEGAN TO SWELL SHUT simvastatin Allergy Intermediate Unknown Verified 07/09/19 08:09 atorvastatin AdvReac Intermediate MYALGIAS Verified 07/09/19 08:09 lisinopril AdvReac Intermediate COUGH Verified 07/09/19 08:09 Consultations 07/09/19 08:59 ED Decision to Admit Stat 07/09/19 12:19 Consult Cardiology Routine Consult Case Management - Discharge Planning Routine Hospital Course (1) Chest pain: (2) Elevated troponin: - Admit to [facility] with tele for obs - Trend cardiac biomarkers, initial set = 0.145, peaked at 0.3 -Consulted with cardiology. Will obtain an outpatient lexiscan myoview stress test. Patient had discussion with cardiology and is agreeable with this plan. - Follows with Dr. Lara as an outpatient, consultation, follow-up upon discharge needed (3) Coronary artery disease: (4) NSTEMI (non-ST elevated myocardial infarction): - History of such on 07/29/2017, anterolateral, cardiac cath completed at [facility] because of high risk. S/p SHIRIN x 2 in ostial to mid LAD and SHIRIN x 1 in ostial/proximal circumflex. - Cont Plavix and asa (5) Dyslipidemia: - Cont statin therapy (6) Asthma: - Former smoker - Cont albuterol prn, no current O2 needs (7) Hypertension: - Cont losartan 100 mg QAM, metoprolol succ 100 mg QAM, amlodipine 5 mg QAM (8) Peripheral arterial disease: - Stable (9) SHAMIR (acute kidney injury): improved. will monitor as outpatient. 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 Was hospitalized d/t developed multiorgan involvement including renal failure for which he was on temporary dialysis and developed cardiac involvement with an elevated troponin. 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, continue valacyclovir daily, continue prednisolone drops Total Time Total Time Spent Total Time Spent (In Minutes): 32 Total Time Includes: Examination of the Patient, Discharge Planning and Medication Reconciliation Discharge Plan Discharge Items Patient Disposition: Home - Self-Care Reason For Visit: CHEST PAIN Discharge Diagnosis: chest pain Activity: Resume your previous activity Non-emergency contact: Primary Care Provider Call non-emergency contact if: you have any medication questions Follow-up/Referrals: Catrachita Cardenas MD [Primary Care Provider] - Diet: Heart Healthy and Low Sodium (2gm) Addtl Attending Provider Instructions: During your hospital stay, you were evaluated by Cardiology. It was deemed you were good for discharge and you did not require a cardiac catheterization. You will follow up with Dr. Andrew for further outpatient testing for your chest pain. Plan appears to be a lexiscan myoview stress test. Pending Studies at Discharge: No Stand-Alone Forms: My [facility], Smoking Cessation Medications and DC Order Prescriptions: Continued prednisolone sodium phosphate 1 % drops 1 drops OP QID RF: 0 nitroglycerin 0.4 mg tablet, sublingual 0.4 mg SL .COMPLEX RF: 0 cholecalciferol (vitamin D3) 2,000 unit tablet 2,000 units PO QAM Qty: 30 RF: 0 albuterol sulfate 90 mcg/actuation HFA aerosol inhaler 1 puffs inhalation Q6H PRN (Reason: shortness of breath or wheezing) Qty: 1 RF: 0 amlodipine 5 mg tablet 5 mg PO QAM Qty: 30 RF: 0 ascorbic acid (vitamin C) 500 mg capsule 500 mg PO QAM RF: 0 calcium carbonate-vitamin D3 500 mg(1,250mg) -200 unit tablet 1 tab PO QAM RF: 0 cyanocobalamin (vitamin B-12) 1,000 mcg tablet 1,500 mcg PO QAM RF: 0 desloratadine 5 mg tablet 5 mg PO QAM Qty: 90 RF: 0 atorvastatin 40 mg tablet 40 mg PO HS RF: 0 metoprolol succinate 100 mg tablet extended release 24 hr 100 mg PO QAM RF: 0 clopidogrel 75 mg tablet 75 mg PO QAM RF: 0 pantoprazole 20 mg tablet,delayed release (DR/EC) 20 mg PO QAM RF: 0 levothyroxine 100 mcg tablet 100 mcg PO QAM RF: 0 losartan 100 mg tablet 100 mg PO QAM RF: 0 dutasteride 0.5 mg capsule 0.5 mg PO HS RF: 0 tadalafil [Cialis] 5 mg tablet 5 mg PO QAM RF: 0 duloxetine 60 mg capsule,delayed release(DR/EC) 60 mg PO QAM RF: 0 valacyclovir 500 mg tablet 500 mg PO QAM RF: 0 aspirin [Aspir-81] 81 mg Tablet,Delayed Release (Dr/Ec) 81 mg PO QAM RF: 0 gabapentin 300 mg capsule 300 mg PO HS RF: 0 Discharge Orders: Discharge Order (Routine); Ordered 07/10/19 Ordered By: Xander Barton Admission Data Admit Date/Time: 07/09/19 09:49 Attending Provider: Xander Barton Admit Provider: Xander Barton Primary Care Provider: Catrachita Cardenas Other Providers: Xander Barton ; Josh Cormier Other Interventions: Discharge Summary Assessment (RN) Last Done: 07/10/19 17:15 DC Date/Time DO NOT enter until pt leaves facility: 07/10/19 18:00
== END 2019-07-10 18:00 | disposition home or self-care (01) ==
LOC: 2S 07:25 → ED 07:25 → 2S 11:00

== ENCOUNTER 2019-10-30 09:46 | Inpatient (IN) ==
--- NOTE | 2019-10-02 12:01 | PAT Medication Instructions ---
Medication Instructions Date of Service October 02, 2019 Home Medications Medication Instructions Recorded pantoprazole 20 mg tablet,delayed 20 mg PO QAM #90 tab 08/21/19 release aspirin [Aspir-81] 81 mg PO QAM valacyclovir 500 mg PO QAM nitroglycerin 0.4 mg sublingual tablet 0.4 mg SL .COMPLEX amlodipine 5 mg tablet 5 mg PO QAM ascorbic acid (vitamin C) 500 mg capsule 500 mg PO QAM calcium carbonate 500 mg (1,250 mg)-vitamin D3 200 unit tablet 1 tab PO QAM prednisolone sodium phosphate 1 % eye drops 1 drops OP QID atorvastatin 40 mg PO HS clopidogrel 75 mg PO QAM duloxetine 60 mg PO QAM dutasteride 0.5 mg PO QAM tadalafil [Cialis] 5 mg PO QAM pantoprazole 20 mg tablet,delayed release 20 mg PO QAM acetaminophen 500 mg tablet 1,000 mg PO QAM PRN albuterol sulfate [Proventil HFA] 1 puff INHALATION QID PRN amlodipine 5 mg PO QAM cholecalciferol (vitamin D3) [Vitamin D3] 1,000 unit PO QAM cyanocobalamin (vitamin B-12) [Vitamin B-12] 1,000 mcg PO QAM gabapentin 800 mg PO TID levothyroxine 100 mcg PO QPM losartan 50 mg PO QAM metoprolol succinate 25 mg PO QAM polyethylene glycol 3350 [Miralax] 17 g PO QPM Continue as directed nitroglycerin 0.4 mg sublingual tablet 0.4 mg SL .COMPLEX (if needed) ASK your prescriber and surgeon clopidogrel 75 mg PO QAM (in order for spinal anesthesia, Clopidogrel/Plavix needs to be stopped 7 days before surgery. Please check if okay with doctor that prescribes this to you) DO NOT take the morning of surgery ascorbic acid (vitamin C) 500 mg capsule 500 mg PO QAM calcium carbonate 500 mg (1,250 mg)-vitamin D3 200 unit tablet 1 tab PO QAM cholecalciferol (vitamin D3) [Vitamin D3] 1,000 unit PO QAM cyanocobalamin (vitamin B-12) [Vitamin B-12] 1,000 mcg PO QAM losartan 50 mg PO QAM Take morning of surgery With a small sip of water, OTHERWISE NOTHING TO EAT OR DRINK AFTER MIDNIGHT: aspirin [Aspir-81] 81 mg PO QAM valacyclovir 500 mg PO QAM amlodipine 5 mg tablet 5 mg PO QAM prednisolone sodium phosphate 1 % eye drops 1 drops OP QID duloxetine 60 mg PO QAM dutasteride 0.5 mg PO QAM tadalafil [Cialis] 5 mg PO QAM pantoprazole 20 mg tablet,delayed release 20 mg PO QAM acetaminophen 500 mg tablet 1,000 mg PO QAM PRN (okay to take up to 4 hours prior to surgery if needed) albuterol sulfate [Proventil HFA] 1 puff INHALATION QID PRN (use if needed; please bring with you to hospital day of surgery if possible) amlodipine 5 mg PO QAM gabapentin 800 mg PO TID metoprolol succinate 25 mg PO QAM Take evening before surgery prednisolone sodium phosphate 1 % eye drops 1 drops OP QID atorvastatin 40 mg PO HS acetaminophen 500 mg tablet 1,000 mg PO QAM PRN (if needed) albuterol sulfate [Proventil HFA] 1 puff INHALATION QID PRN (if needed) gabapentin 800 mg PO TID levothyroxine 100 mcg PO QPM polyethylene glycol 3350 [Miralax] 17 g PO QPM Other Notes If you have any questions please call us at [phone] or [phone] or [phone] or [phone]
--- NOTE | 2019-10-03 11:04 | Anesthesiology Consultation ---
Date of Service October 03, 2019 Assessment & Plan (1) Encounter for pre-operative examination: - Awaiting surgeon-ordered PCP clearance (Dr. Cardenas/[facility] - Awaiting surgeon-ordered cardiology clearance scheduled 10/17 (Lashay Dunn/[facility]). - Patient scheduled to see nephrology prior to surgery (Dr. Tatum/[facility])- awaiting nephrology office visit note. - Possible difficult intubation: d/t anatomy Chart Review Chart Review: Acceptable Risk for Surgery and Patient seen in Pre Admission Testing Teaching & Discussion Pre-Anesthesia Teaching/Discussion Notes: Instructed NPO after midnight before surgery,except medications with 15 cc of water. Medication instructions pro vided according to the PAT guidelines. History Surgery Operation Date: 10/30/19 07:45 Proposed Procedures p Right Total Hip Arthroplasty Posterior - Tony Liu DO Height/Weight Height: 5 ft 6 in Weight: 107.4 kg Allergies Allergy/AdvReac Type Severity Reaction Status Date / Time erythromycin base Allergy Intermediate THROAT Verified 09/26/19 12:23 BEGAN TO SWELL SHUT simvastatin Allergy Intermediate MUSCLE Verified 09/26/19 12:23 ACHES lisinopril AdvReac Intermediate COUGH Verified 09/26/19 12:23 Medications Home Medications Medication Instructions Recorded Confirmed Last Taken aspirin [Aspir-81] 81 mg PO QAM 05/22/18 09/26/19 07/09/19 valacyclovir 500 mg PO QAM 05/22/18 09/26/19 07/09/19 nitroglycerin 0.4 mg sublingual 0.4 mg SL .COMPLEX tab 01/26/19 09/26/19 07/09/19 tablet 2 tablets amlodipine 5 mg tablet 5 mg PO QAM #30 tab 04/01/19 09/26/19 07/09/19 ascorbic acid (vitamin C) 500 mg 500 mg PO QAM cap 04/01/19 09/26/19 07/09/19 capsule calcium carbonate 500 mg (1,250 1 tab PO QAM tab 04/01/19 09/26/19 07/09/19 mg)-vitamin D3 200 unit tablet prednisolone sodium phosphate 1 % 1 drops OP QID 04/09/19 09/26/19 07/09/19 eye drops atorvastatin 40 mg PO HS 07/09/19 09/26/19 07/08/19 clopidogrel 75 mg PO QAM 07/09/19 09/26/19 07/09/19 duloxetine 60 mg PO QAM 07/09/19 09/26/19 07/09/19 dutasteride 0.5 mg PO QAM 07/09/19 09/26/19 07/09/19 tadalafil [Cialis] 5 mg PO QAM 07/09/19 09/26/19 07/09/19 pantoprazole 20 mg tablet,delayed 20 mg PO QAM #90 tab 08/21/19 09/26/19 Unknown release acetaminophen 500 mg tablet 1,000 mg PO QAM PRN tab 09/03/19 09/26/19 Unknown albuterol sulfate [Proventil HFA] 1 puff INHALATION QID PRN 09/26/19 09/26/19 Unknown amlodipine 5 mg PO QAM 09/26/19 09/26/19 Unknown cholecalciferol (vitamin D3) 1,000 unit PO QAM 09/26/19 09/26/19 Unknown [Vitamin D3] cyanocobalamin (vitamin B-12) 1,000 mcg PO QAM 09/26/19 09/26/19 Unknown [Vitamin B-12] gabapentin 800 mg PO TID 09/26/19 09/26/19 Unknown levothyroxine 100 mcg PO QPM 09/26/19 09/26/19 Unknown losartan 50 mg PO QAM 09/26/19 09/26/19 Unknown metoprolol succinate 25 mg PO QAM 09/26/19 09/26/19 Unknown polyethylene glycol 3350 [Miralax] 17 g PO QPM 09/26/19 09/26/19 Unknown Past Medical History Medical History SHAMIR (acute kidney injury) 2017 in setting of Lyme disease/ehrlichiosis- was on dialysis x 6 treatments- now follows with [facility] nephrology Asthma stable BPH with obstruction/lower urinary tract symptoms Chronic osteoarthritis Coronary artery disease stents x2 (LAD/CX)- 2017 Dyslipidemia Enlarged prostate Gastroesophageal reflux disease controlled Hypertension Hypothyroidism Lumbar radiculopathy NSTEMI (non-ST elevated myocardial infarction) 2017- stents x 2 Obesity Osteoarthritis Peripheral neuropathy Exercise / Class Metabolic Activity III < 4 Walking/Shop/Light housework Past Family History Family History Other Family history non-contributory Past Surgical History Surgical History History of left hip replacement History of tonsillectomy and adenoidectomy History of trigger finger REPAIRED Hx of cardiac cath 2017 (stents x 2), 2018 (no stents/medical management/felt no significant progression of large vessel disease and patent stents) Hx of colonoscopy Past Anesthesia History No Hx of Anesthesia Complications and No Family Hx of Anesthesia Complications History of PONV No Hx of PONV and Hx of Motion Sickness (mild ) Social History Smoking Status: Never smoker Do You Dip or Chew Tobacco: No Hx Alcohol Use: Yes Alcohol type: beer and wine alcohol intake frequency: a few times a week Hx Substance Use: No Review of Systems Reflux controlled. Patient denies chest pain, shortness of breath, cough, wheezing, palpitations. Physical Exam Vital Signs VITALS BP 122/66 P 63 TEMP 98.3 SP02 96%RA RESP 16 PHYSICAL Full neck and c-spine range of motion. Full TMJ range of motion. TMD 2 finger breaths (small chin) Mallampati Score 3 Dentition: intact, + several crowns Lungs: clear throughout to auscultation Cardiac: regular rate and rhythm, no murmurs noted Spine: normal Carotid arteries: negative bruit Extremities: no edema Trimmed mccarthy Testing Laboratory Results 10/03/19 11:21 10/03/19 11:21 PT 10.3 Seconds (9.0-12.0) 10/03/19 11:21 INR 1.0 (0.9-1.1) 10/03/19 11:21 APTT 24.2 Seconds (21.0-31.0) 10/03/19 11:21 Hemoglobin A1c 5.9 % (4.5-5.6) H 10/03/19 11:21 Urine Color Dark Yellow 10/03/19 11:21 Urine Appearance Clear (Clear) 10/03/19 11:21 Urine pH 5.0 (4.5-7.5) 10/03/19 11:21 Ur Specific [place] 1.032 (1.000-1.030) H 10/03/19 11:21 Urine Protein Trace (Negative) H 10/03/19 11:21 Urine Glucose (UA) Negative (Negative) 10/03/19 11:21 Urine Ketones Trace (Negative) H 10/03/19 11:21 Urine Nitrite Negative (Negative) 10/03/19 11:21 Ur Leukocyte Esterase Negative (Negative) 10/03/19 11:21 Urine WBC (Auto) 1-5 /hpf (0-5) 10/03/19 11:21 Urine RBC (Auto) 0-4 /hpf (0-4) 10/03/19 11:21 U Hyaline Cast (Auto) 1-5 /lpf (0-5) 10/03/19 11:21 U Epithel Cells (Auto) 10-20 /lpf (0-5) H 10/03/19 11:21 Urine Bacteria (Auto) Negative (Negative) 10/03/19 11:21 Blood Type A Negative 10/03/19 11:21 Antibody Screen NEGATIVE 10/03/19 11:21 Electrocardiogram Date: 07/10/19 SR with occasional PVC's at 86bpm. ST/TWA, consider lateral ischemia. *Patient had subsequent unremarkable stress test 07/2019* Chest X-Ray Date: 07/09/19 Cardiomegaly without acute process. Large hiatal hernia. Echocardiogram Date: 07/09/19 LVEF >70%. No RWMA. Peak intracavitary gradient 24mmhg. Mild cLVH. No significant valvular disease. Compared to 10/14/17 study, no significant changes per report. Stress Test Date: 07/26/19 Type: nuclear 1. No scintigraphic evidence of a prior myocardial infarction or stress-induced myocardial ischemia. 2. No Lexiscan induced chest pain. 3. No Lexiscan induced EKG changes. 4. Normal left ventricular systolic function without wall motion abnormality. Left ventricular ejection fraction is 70%. Cardiac Catheterization Date: 10/14/17 LAD is stented from the ostial portion to the mid LAD. Ostial/proximal and mis LAD stents are patent. D2 appears to be pinched at the ostium within the stented portion of the LAD of approximately 70%. Mid CX 60-70%. pPDA 90%. Optimize medical therapy recommended. T/C FFR of mid circumflex stenosis if symptoms concerning for angina.
[2019-10-03 11:59] LABS: Basophils # (auto) 0.03 K/uL (0-0.2); Basophils % (auto) 0.4 %; Eosinophils # (auto) 0.23 K/uL (0-0.5); Eosinophils % (auto) 3.3 %; Hematocrit (blood only) 38.9 % (42-52); Hemoglobin 12.7 g/dL (14.0-18.0); Immature Granulocytes # (auto) 0.03 K/uL (0.00-0.02); Immature Granulocytes % (auto) 0.4 %; Lymphocytes # (auto) 1.35 K/uL (1.2-3.4); Lymphocytes % (auto) 19.5 %; Mean Corpuscular Hemoglobin 31.4 pg (25-34); Mean Corpuscular Hgb Conc 32.6 g/dL (32-36); Mean Corpuscular Volume 96.3 fL (80-100); Mean Platelet Volume 9.3 fL (7.4-10.4); Monocytes # (auto) 0.61 K/uL (0.11-0.59); Monocytes % (auto) 8.8 %; Neutrophils # (auto) 4.66 K/uL (1.4-6.5); Neutrophils % (auto) 67.6 %; Platelet Count 205 K/uL (130-400); RDW Coefficient of Variation 13.8 % (11.5-14.5); RDW Standard Deviation 48.3 fL (36.4-46.3); Red Blood Count 4.04 M/uL (4.7-6.1); White Blood Count 6.91 K/uL (4.8-10.8)
[2019-10-03 12:07] LABS: Albumin Level 3.4 gm/dl (3.4-5.0); BUN Creatinine Ratio 25.3 (10-20); Calcium 8.5 mg/dl (8.5-10.1); Creatinine Clr Calc Pharmacy 48.2 ml/min; Est GFR (African American) 55.2; Est GFR (Non-African American) 47.6; Estimated Average Glucose 123 mg/dl; Hemoglobin A1C 5.9 % (4.5-5.6); Potassium 4.7 mmol/L (3.5-5.1)
[2019-10-03 12:18] LABS: Partial Thromboplastin Ratio 0.9; Partial Thromboplastin Time 24.2 Seconds (21.0-31.0); Prothrombin Time 10.3 Seconds (9.0-12.0)
[2019-10-03 12:32] LABS: Appearance Urine Clear (Clear); Bacteria Urine Automated Negative (Negative); Bilirubin Urine Negative (Negative); Blood Urine Negative (Negative); Color Urine Dark Yellow; Glucose Urine UA Negative (Negative); Ketones Urine Trace (Negative); Leukocyte Esterase Urine Negative (Negative); Nitrite Urine Negative (Negative); Protein Urine Trace (Negative); RBC Urine Automated 0-4 /hpf (0-4); Specific Gravity Urine 1.032 (1.000-1.030); Urobilinogen Urine Negative (Negative)
--- NOTE | 2019-10-29 20:26 | History & Physical Report ---
Date of Service October 29, 2019 Assessment & Plan (1) Degenerative joint disease of right hip: I have indicated the patient for right total hip replacement. The risks, benefits and complications of surgery were explained to the patient which include but not limited to infection, acute blood loss, DVT/PE, injury to nerves, vessels, bone, soft tissue, arthrofibrosis, chronic pain, failure of the prosthesis, hip dislocation, leg length discrepancy, need for additional surgery, cardiac and pulmonary events and . The patient wished to proceed with surgery and informed consent was obtained at this time. We will plan for restarting patient's blood thinner plavix/81mg ASA post-operatively for DVT prophylaxis. Upon discharge the patient will be discharged home with home health services. Appropriate clearances by PCP, Cardio, nephrology were obtained. History of Present Illness Chief Complaint: Right hip pain/djd Primary Care Provider: Catrachita Cardenas MD The patient is a 83 year old male who presents with complaints of severe right hip pain and DJD. The patient has failed outpatient conservative treatments to this point which included home exercise/walking program, patient unable to take NSAIDs due to plavix, declined IA corticosteroid injection. The patient's pain and limited function have progressed to the point where they severely hinder their activities of daily living and they no longer tolerate exercise programs. They are requesting to proceed with total hip replacement surgery. Allergies Allergy/AdvReac Type Severity Reaction Status Date / Time erythromycin base Allergy Intermediate THROAT Verified 10/30/19 10:10 BEGAN TO SWELL SHUT simvastatin Allergy Intermediate MUSCLE Verified 10/30/19 10:10 ACHES lisinopril AdvReac Intermediate COUGH Verified 10/30/19 10:10 Home Medications Home Medications Medication Instructions Recorded Confirmed Type aspirin [Aspir-81] 81 mg PO QAM 05/22/18 10/30/19 History valacyclovir 500 mg PO QAM 05/22/18 10/30/19 History nitroglycerin 0.4 mg sublingual 0.4 mg SL .COMPLEX tab 01/26/19 10/30/19 History tablet amlodipine 5 mg tablet 5 mg PO QAM #30 tab 04/01/19 10/30/19 History ascorbic acid (vitamin C) 500 mg 500 mg PO QAM cap 04/01/19 10/30/19 History capsule calcium carbonate 500 mg (1,250 1 tab PO QAM tab 04/01/19 10/30/19 History mg)-vitamin D3 200 unit tablet prednisolone sodium phosphate 1 % 1 drops OP QID 04/09/19 10/30/19 History eye drops atorvastatin 40 mg PO HS 07/09/19 10/30/19 History clopidogrel 75 mg PO QAM 07/09/19 10/30/19 History duloxetine 60 mg PO QAM 07/09/19 10/30/19 History dutasteride 0.5 mg PO QAM 07/09/19 10/30/19 History tadalafil [Cialis] 5 mg PO QAM 07/09/19 10/30/19 History pantoprazole 20 mg tablet,delayed 20 mg PO QAM #90 tab 08/21/19 10/30/19 Rx release acetaminophen 500 mg tablet 1,000 mg PO QAM PRN tab 09/03/19 10/30/19 History cholecalciferol (vitamin D3) 1,000 unit PO QAM 09/26/19 10/30/19 History [Vitamin D3] cyanocobalamin (vitamin B-12) 1,000 mcg PO QAM 09/26/19 10/30/19 History [Vitamin B-12] gabapentin 800 mg PO TID 09/26/19 10/30/19 History levothyroxine 100 mcg PO QPM 09/26/19 10/30/19 History losartan 50 mg PO QAM 09/26/19 10/30/19 History metoprolol succinate 25 mg PO QAM 09/26/19 10/30/19 History polyethylene glycol 3350 [Miralax] 17 g PO QPM 09/26/19 10/30/19 History desloratadine 5 mg tablet 5 mg PO QAM #30 tab 10/10/19 10/30/19 Rx albuterol sulfate 90 mcg/actuation 1 puff INHALATION QID PRN #8.5 gm 10/17/19 10/30/19 Rx aerosol inhaler doxycycline hyclate 100 mg capsule 100 mg PO BID 7 Days #14 cap 10/17/19 10/30/19 Rx ferrous sulfate 1 ea PO DAILY 10/17/19 10/30/19 History Past Med/Surg History Medical History SHAMIR (acute kidney injury) 2016 in setting of Lyme disease/ehrlichiosis- was on dialysis x 6 treatments- now follows with [facility] nephrology Asthma stable BPH with obstruction/lower urinary tract symptoms Chronic osteoarthritis Coronary artery disease stents x2 (LAD/CX)- 2017 Dyslipidemia Enlarged prostate Gastroesophageal reflux disease controlled Hypertension Hypothyroidism Lumbar radiculopathy NSTEMI (non-ST elevated myocardial infarction) 2017- stents x 2 Obesity Osteoarthritis Peripheral neuropathy Surgical History History of left hip replacement History of tonsillectomy and adenoidectomy History of trigger finger REPAIRED Hx of cardiac cath 2017 (stents x 2), 2018 (no stents/medical management/felt no significant progression of large vessel disease and patent stents) Hx of colonoscopy Family History Other Family history non-contributory Social History Preferred Language: Romanian Communication Ability: Effective Visual Impairment: Limited Hearing Ability: Use of Hearing Aid Home Economics Teacher Required: No Beliefs That Will Affect Care: None marital status: Current Living Situation: Family Current Living Situation Comment: Son currently lives with the patient. 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) ; Hx Alcohol Use: Yes Alcohol type: beer and wine Alcohol Intake Frequency: Daily Alcohol Intake Frequency Comment: 0-1 per day Hx Substance Use: No Childhood Exposure to Second-Hand Smoke: Yes caffeine: Yes Dental Care, Regularly: Yes Physical Activity Frequency: Does not Exercise Seatbelt Use: always Sunscreen Use: No Review of Systems Review of Systems: All systems reviewed & are unremarkable except as noted in HPI & below Constitutional: as per Subjective / HPI Physical Exam Physical Exam: RLE NVSI +EHL/FHL/TA/GS SILT grossly, +2 DP pulse, compartments soft NT, limited painful ROM of the hip, antalgic gait. Constitutional: WD/WN, vitals as above Eyes: PERRL, conjunctivae normal, anicteric sclerae ENMT: external ear and nose normal, oropharynx normal Neck: trachea midline, no thyromegaly Respiratory: normal respiratory effort, lungs clear to auscultation Cardiovascular: RRR, no murmur, no edema Gastrointestinal (Abdomen): normal bowel sounds, soft, nontender, no hepatosplenomegaly Musculoskeletal: no cyanosis or clubbing, extremities motor strength 5/5 Skin: no rashes, warm and dry Neurologic: patellar DTR's 2+ bilat, sensation intact Psychiatric: A+Ox3, euthymic affect Lymphatic: no cervical or axillary lymphadenopathy Results & Data Diagnostic Findings Multiple views of the hip demonstrates severe DJD with complete loss of the joint space. +osteophytes, +sclerosis, +subchondral cysts.
[~2019-10-30 09:46] MED LIST changes: -ACET-1256 PO; +ACETAMINOPHEN 500 MG TAB PO SCH; -ALFU1TAB37 PO; -ASCO500C43 PO; -ASPI325T39 PO; -ATOR-24 PO; -B-COCAP20 PO; +BUPIVACAINE 0.5 % 5 MG/1 ML PF 10ML VIAL ONE; -CALCTAB7 PO; +CEFAZOLIN 2000MG 2,000 MG/15 ML SYR IV SCH; -CHOL100027 PO; -CLOP1TAB15 PO; -CLR/5 PO; -CYM60 PO; +CeleBREX 200 MG CAP PO SCH; -DUTA1CAP3 PO; +FAMOTIDINE 20 MG TAB PO SCH; -GABA-1219 PO; +GABAPENTIN 300 MG CAP PO SCH; -LEVO100T7 PO; -LOSA50TA6 PO; +LR 500ML BOLUS, THEN 15ML/HR IV SCH; +METOCLOPRAMIDE HCL 10 MG TABLET PO SCH; -MOME100A INH; -NITR0.4S UT; -OMEP40CA41 PO; -POLY335025 PO; -PRED1SUS17 OPL; -PSYL48.59 PO; +ROPIVACAINE 0.5% HCL/PF 150 MG, BUPIVACAINE 0.5% MPF 30 ML, EPINEPHrine 30MG/30ML (OR U... INSTIL SCH; -TADA5TAB11 PO; -TPRSR100 PO; +TRANEXAMIC ACID 1,000 MG **IV Intra-op IV SCH; +TRANEXAMIC ACID 1,000 MG **IV Pre-op IV SCH; -VALA500T39 PO; -VNTHFA/IN INH; +dexAMETHasone 4 MG TAB PO SCH
[2019-10-30] MEDS ORDERED: MIDAZOLAM HCL 1 MG/ML 2ML VIAL ONE (12:08)
[2019-10-30] MEDS ORDERED: ePHEDrine sulfate 50 MG/ML AMP IV PRN (12:27)
[2019-10-30] MEDS ORDERED: ATROPINE SULFATE 0.1 MG/ML 10ML SYR IV PRN (12:27)
--- NOTE | 2019-10-30 12:45 | History & Physical Bridge Note ---
Date of Service October 30, 2019 History & Physical Bridge Note I have examined the patient, reviewed the History & Physical and in the interval since the performance of the History & Physical I have noted the following changes of clinical significance: no changes noted
[2019-10-30] MEDS ORDERED: PROPOFOL IV EMULSION 10 MG/ML 20 ML VIAL IV ONE (12:47)
[2019-10-30] MEDS ORDERED: LIDOCAINE HCL 2% 2 ML VIAL/AMP(20MG/ML) INFIL ONE (12:47)
[2019-10-30] MEDS ORDERED: BACITRACIN INJ 50,000 UNIT VIAL ONE (12:50)
--- NOTE | 2019-10-30 15:13 | Post Operative Brief Note ---
Immediate Post Op Note v1 Date of Surgery October 30, 2019 Pre & Post Diagnosis Operation Date: 10/30/19 11:55 Pre-Op Diagnosis: Unilateral Primary Osteoarthritis, Right Hip Post-Op Diagnosis: Unilateral Primary Osteoarthritis, Right Hip I identified the patient and participated in the time-out.: Yes Procedure Operation Date: 10/30/19 11:55 Actual Procedures p Right Total Hip Arthroplasty Posterior(Right) - Tony Liu DO Surgeon Tony Liu DO Dry Cell And Battery Assembler Elvis Olivo Estimated Blood Loss 140 Findings Consistent with Post-Op Diagnosis Fluids 1500 cc LR Specimens femoral head Anesthesia Type Spinal MAC Complications none Disposition Disposition: Recovery Room Overlapping Procedure I was present for: the critical portions of procedure. I was immediately available: during the entire case. Back up surgeon: was not required during procedure.
--- NOTE | 2019-10-30 15:16 | Operative Report ---
Post Operative Report Pre & Post Diagnosis Operation Date: 10/30/19 11:55 Pre-Op Diagnosis: Unilateral Primary Osteoarthritis, Right Hip Post-Op Diagnosis: Unilateral Primary Osteoarthritis, Right Hip I identified the patient and participated in the time-out.: Yes Procedure Operation Date: 10/30/19 11:55 Actual Procedures p Right Total Hip Arthroplasty Posterior(Right) - Tony Liu DO Surgeon Tony Liu DO Senior Contracts Manager Elvis Olivo Estimated Blood Loss 140 Findings Consistent with Post-Op Diagnosis Fluids 1500 cc LR Specimens femoral head Drains none Anesthesia Type Spinal MAC Complications none Disposition Disposition: Recovery Room Indications The patient is a 83-year-old male who presents with severe progressive right hip DJD who has failed outpatient conservative treatments. I indicated the patient for a total hip replacement and the risks and benefits were explained in detail which included but not limited to infection, bleeding, blood clot, damage to surrounding bone, nerves, vessels, soft tissue, hip dislocation, failure of the prosthesis, leg length discrepancy, need for additional surgery and . The patient agreed to proceed with replacement of the hip and informed consent was obtained. Appropriate clearances were obtained. Description of Procedure COMPONENTS USED: [employer] hip system: Acetabulum size 62, femur size 12.5 standard offset, femoral head 36+0, liner 5230, acetabular screw 25 mm x 1. Following induction of adequate spinal anesthesia, the patient was transferred to the OR table and placed in lateral decubitus position with left hip down. The right hip was prepped and draped in the typical sterile fashion. A timeout was performed, patient identified and site melina confirmed. Appropriate antibiotics were given. A standard posterolateral/German-[place] incision was made. Subcutaneous tissue was sharply dissected. Electrocautery was utilized for hemostasis. The fascia was incised throughout the length of the wound and retracted with the Charnley retractor. The bursa was taken down and t he short external rotators were identified. The piriformis was tagged with #1 Vicryl. The short external rotators and capsule were divided from the posterior aspect of the femur using electrocautery. The posterior capsule was tagged with #1 Vicryl. Both external rotators and posterior capsule were swept posterior and protected, along with protecting the sciatic nerve. The hip was dislocated by flexion and internally rotation in a controlled manner and exposure of the femoral neck was gained with an old-style Hohmann and a blunt cobra retractor. A femoral cutting guide was utilized for making the appropriate level femoral neck cut with reciprocating saw. The femoral head was removed, measured and reserved on the back table. Next, attention was turned to the acetabulum. A posterior and anterior offset retractor was placed to gain adequate exposure. Acetabular labrum as well as posterior capsule elements were removed using electrocautery and forceps. Fovea centralis was cleared of all soft tissue. Sequential reaming was performed starting at 48 mm and carried up to a 60 mm and decision was made to proceed with impaction of a 62 mm G7 osteo-ti metal cup. This was impacted and held using a single 25 mm bone screw. The trial acetabular liner was placed at this time. Next, attention was turned to the proximal femur where a Bovie and pickup was used to further clear short external rotators from their insertion on the femur. Box osteotome and canal finder was used to gain access to the femoral canal and the lateral reamer on power was used to further open the proximal lateral canal. Sequentially rasping was carried up to a 12.5 which gave good fit and fill of the proximal femur. A trial reduction was carried out with a standard offset femoral neck component a 36+0 mm femoral head. The trial reduction was stable in all degrees of rotation with no [id number] impingement. The hip was dislocated, trial components were removed and access to the acetabulum was re-established. The trial liner was removed and the cup was irrigated to ensure all debris was removed. The final acetabular liner was inserted and properly seated in the cup. Access to the femur was once more gained and the size 12.5 femoral stem with standard offset was impacted into position. The hip was once more assessed with the 36+0 mm femoral head. Stability was accessed and found to be excellent with equal leg lengths. The hip was dislocated for the last time and the final 36+0 ceramic femoral head was impacted in place and the hip was reduced. Range of motion was checked once again and found to be stable. A Betadine soak was performed. After 3 minutes, the hip was once more irrigated with copious sterile saline solution with bacitracin. The randi-incisional soft tissue was injected utilizing [place] ortho mix which includes a combination of Ropivicaine 0.5% 150mg, Bupivicaine 0.5%/Epinephrine 1:200,000 30ml, Toradol 30mg, Dexamethasone 4mg, Ketamine 10mg, Clonidine 100mcg and NSS 30ml Orthomix solution. The piriformis, external rotators and capsule were repaired to the greater trochanter through bone tunnels using #5 FiberWire. The fascia was closed using #1 Vicryl, subcutaneous tissue was closed using 2-0 Vicryl, and skin was closed with 3-0 V-lock suture and Dermabond Prineo. Sterile dressings were applied which included nunu, 4x4s and tegaderm adhesive dressing. The patient tolerated the procedure well and was transported to PACU in stable condition. Due to the complex nature of the procedure, the entire surgery was performed with the operational assistance of Elvis Olivo PA-C. The assistant education director, under direct supervision, was involved in the actual performance of all aspects of the surgical procedure including patient positioning, hemostasis, tissue retraction, instrument management and wound closure. I attest to the content of the Intraoperative Record and any orders documented therein. Any exceptions are noted below.
--- NOTE | 2019-10-30 16:11 | XRay Report ---
SINGLE VIEW PELVIS; SINGLE VIEW RIGHT HIP CLINICAL HISTORY: Postoperative examination. FINDINGS: An AP portable view of the hips and pelvis with a crosstable lateral portable view of the r ight hip are obtained. A bipolar right hip arthroplasty is in near-anatomic alignment. A single corti beto lag screw transfixes the acetabular cup. No acute fracture is identified. Subcutaneous gas and so ft tissue edema overlying the right hip are expected postoperative findings. A left hip arthroplasty is also in place. Degenerative sclerosis is noted in the sacroiliac joints and pubic symphysis. IMPRESSION: Expected postoperative findings status post right hip arthroplasty. No acute fracture is seen. ACT 112: Negative or not required by law. Electronically signed by: Anthony Mercado M.D. 10/30/2019 4:10 PM
--- NOTE | 2019-10-30 16:25 | Anesthesiology Progress Note ---
Date of Service October 30, 2019 Anesthesia Post Procedure Vital Signs Vital Signs: Temp Pulse Pulse Resp BP BP Pulse Ox 10/30/19 16:15 36.9 C 55 L 16 151/69 H 98 10/30/19 16:05 50 L 15 134/65 98 10/30/19 15:55 54 L 16 115/71 99 10/30/19 15:46 37.2 C 53 L 16 144/71 H 98 10/30/19 10:20 36.8 C 58 L 18 176/78 H 98 Pain Intensity Right Knee: Pain Intensity: 3 Transfer of Care Handoff Completed per policy Notes Mental Status: alert / awake / arousable and participated in evaluation Patient Amnestic to Procedure: Yes Nausea / Vomiting: adequately controlled Pain: adequately controlled Airway Patency, RR, SpO2: stable & adequate BP & HR: stable & adequate Hydration State: stable & adequate Neuraxial Anesthesia: was administered and sensory block is resolving Anesthetic Complications: no major complications apparent
--- NOTE | 2019-10-30 16:32 | Orthopedic Progress Note ---
Date of Service October 30, 2019 Assessment & Plan (1) Degenerative joint disease of right hip: Status post right total hip arthroplasty -Ancef x24 -DVT prophylaxis: SCDs, teds, Plavix, 81 mg ASA daily -Weight-bear as tolerated right lower extremity -Posterior hip precaution -PT/OT -Postoperative x-ray demonstrates a well aligned well fixed total hip prosthesis without evidence of fracture or dislocation. -A.m. labs -DC planning Subjective Post Operative Progress Note Patient seen in PACU, comfortable, denies complaints, pain well controlled, no acute issues. Still feeling effects of spinal anesthesia Review of Systems Review of Systems: All systems reviewed & are unremarkable except as noted in HPI & below Constitutional: as per Subjective / HPI Physical Exam Physical Exam: Right lower extremity physical exam limited secondary to spinal anesthesia, +2 dorsalis pedis pulse, compartment soft nontender, abduction pillow in place, dressings clean dry and intact. Constitutional: WD/WN, vitals as above Results & Data ([facility]) Vital Signs (Past 12 Hours) Vital Signs Temp Pulse Pulse Resp BP BP Pulse Ox 10/30/19 16:15 36.9 C 55 L 16 151/69 H 98 10/30/19 16:05 50 L 15 134/65 98 10/30/19 15:55 54 L 16 115/71 99 10/30/19 15:46 37.2 C 53 L 16 144/71 H 98 10/30/19 10:20 36.8 C 58 L 18 176/78 H 98
[2019-10-30] MEDS ORDERED: CEFAZOLIN 3000MG/72.5 ML BAG IV SCH (17:06)
[2019-10-30] MEDS ORDERED: MAGNESIUM HYDROXIDE SUSP 30 ML UDC PO PRN (17:28)
[2019-10-30] MEDS ORDERED: SODIUM CHLORIDE 0.9% 1000ML 1,000 ML IV SCH (17:28)
[2019-10-30] MEDS ORDERED: bisacodyL 10 MG SUPP PR PRN (17:28)
[2019-10-30] MEDS ORDERED: ONDANSETRON INJ 2 MG/ML 2 ML VIAL IV PRN (17:28)
[2019-10-30] MEDS ORDERED: NALOXONE HCL 0.4 MG/1 ML VIAL/CARP IV PRN (17:28)
[2019-10-30] MEDS ORDERED: HYDROmorphone INJ 0.5 MG/0.5 ML SYR IV PRN (17:28)
[2019-10-30] MEDS ORDERED: METOCLOPRAMIDE HCL INJ 5 MG/ML 2 ML VIAL IV PRN (17:28)
[2019-10-30] MEDS ORDERED: ALBUTEROL HFA 8 GM INHALER INH PRN (17:30)
[2019-10-30] MEDS: prednisoLONE sod phos 1% 10 ML BTL OP SCH ×2 (19:44→21:20)
[2019-10-30] MEDS ORDERED: SENNA 8.6 MG TAB PO SCH (21:00)
[2019-10-30] MEDS ORDERED: ATORVASTATIN 40 MG TAB PO SCH (21:00)
[2019-10-30] MEDS ORDERED: GABAPENTIN 800 MG TAB PO SCH (21:00)
[2019-10-30] MEDS: CEFAZOLIN 3,000 MG in DEXTROSE 5% 50 ML IV SCH (21:24)
[2019-10-30] MEDS: prednisoLONE acetate 1% OP SUSP 5 ML BTL OP SCH (21:25)
[2019-10-30] MEDS: DOCUSATE SODIUM 100 MG CAP PO SCH (21:26)
[2019-10-30] MEDS: GABAPENTIN 300 MG CAP PO SCH (21:27)
[2019-10-30] MEDS: ACETAMINOPHEN 500 MG TAB PO SCH (21:27)
[2019-10-30] MEDS: *DUTASTERIDE*ORDER AWAITING ACTION SCH (23:27)
[2019-10-31] MEDS: ACETAMINOPHEN 500 MG TAB PO SCH ×2 (05:27→13:38)
[2019-10-31] MEDS: CEFAZOLIN 3,000 MG in DEXTROSE 5% 50 ML IV SCH (05:27)
[2019-10-31 05:30] LABS: Hematocrit (blood only) 35.4 % (42-52); Immature Granulocytes # (auto) 0.03 K/uL (0.00-0.02); Immature Granulocytes % (auto) 0.3 %; Lymphocytes # (auto) 0.87 K/uL (1.2-3.4); Lymphocytes % (auto) 7.4 %; Mean Corpuscular Hemoglobin 31.9 pg (25-34); Mean Corpuscular Hgb Conc 33.9 g/dL (32-36); Mean Corpuscular Volume 94.1 fL (80-100); Mean Platelet Volume 8.8 fL (7.4-10.4); Monocytes # (auto) 0.84 K/uL (0.11-0.59); Monocytes % (auto) 7.1 %; Neutrophils # (auto) 10.05 K/uL (1.4-6.5); Neutrophils % (auto) 85.2 %; Platelet Count 216 K/uL (130-400); Red Blood Count 3.76 M/uL (4.7-6.1); White Blood Count 11.79 K/uL (4.8-10.8)
--- NOTE | 2019-10-31 06:05 | Hospitalist Consultation ---
Date of Consultation October 31, 2019 Assessment & Plan (1) Hypertension: 83yo C male with history of HTN, s/p right SINAN performed yesterday afternoon by Dr. Liu. Elevated BP this evening, presently 188/85. Patient is asymptomatic, presently no complaints. His BP has ranged from 115-191/65-87 this hospital stay. Upon review of outpatient records his BP is fairly well controlled. Hypertension in the current setting most likely multifactorial - patient held his Losartan pre-operatively, post-operative hypersympathetic state, IVF and steroids administered during surgery and pain (well controlled at this time) most likely all contributing to patient's current BP. Would be hesitant to add additional agents at this time. -Continue home Metoprolol 25mg po qAM -Continue home Losartan 50mg po qAM -Continue home Amlodipine 5mg po qAM -Patient may take these medications now -Continue to monitor BP Present on Admission?: Yes (2) Coronary artery disease: CAD s/p PCI of LAD and LCx in 07/2017. Nuclear stress test in July 2019 negative for inducible ischemia. Stable CAD. Patient follows with Cardiology and was last see on 10/17/19 for preoperative clearance. -Continue ASA and Plavix at discretion of surgical team -Continue Atorvastatin, Losartan and Metoprolol Present on Admission?: Yes (3) Dyslipidemia: Chronic. Stable -Continue Atorvastatin Present on Admission?: Yes (4) Gastroesophageal reflux disease: Chronic. Stable -Continue Protonix Present on Admission?: Yes (5) Asthma: Chronic. Stable. 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 Stable -Continue Dutasteride (7) Hypothyroidism: Chronic. Stable. TSH on 10/23/19 normal at 2.47 -Continue Synthroid Thank you for this consultation. History of Present Illness Reason for Consultation: Hypertension Attending Physician: Tony Liu, DO History of Present Illness Mr. Kane Gill is a pleasant 83yo C male with history of CAD/HTN/HLP s/p right total hip arthroplasty performed by Dr. Liu yesterday afternoon. The surgery was well tolerated. No complications identified. The patient has ambulated to the bathroom without difficulty. Reports that pain is well controlled. Denies headache/visual changes/CP/palpitations/SOB. No complaints at this time. We have been asked by the primary service to evaluate this patient's blood pressure. He has history of hypertension, presently on Amlodipine/Losartan and Metoprolol. He reports well controlled BP at home and outpatient visits. BP this stay has ranged 115-191 / 65-87. He reports holding his Losartan pre- operatively. Allergies Allergy/AdvReac Type Severity Reaction Status Date / Time erythromycin base Allergy Intermediate THROAT Verified 10/30/19 10:10 BEGAN TO SWELL SHUT simvastatin Allergy Intermediate MUSCLE Verified 10/30/19 10:10 ACHES lisinopril AdvReac Intermediate COUGH Verified 10/30/19 10:10 Home Medications Home Medications Medication Instructions Recorded Confirmed Type aspirin [Aspir-81] 81 mg PO QAM 05/22/18 10/30/19 History valacyclovir 500 mg PO QAM 05/22/18 10/30/19 History nitroglycerin 0.4 mg sublingual 0.4 mg SL .COMPLEX tab 01/26/19 10/30/19 History tablet amlodipine 5 mg tablet 5 mg PO QAM #30 tab 04/01/19 10/30/19 History ascorbic acid (vitamin C) 500 mg 500 mg PO QAM cap 04/01/19 10/30/19 History capsule calcium carbonate 500 mg (1,250 1 tab PO QAM tab 04/01/19 10/30/19 History mg)-vitamin D3 200 unit tablet atorvastatin 40 mg PO HS 07/09/19 10/30/19 History clopidogrel 75 mg PO QAM 07/09/19 10/30/19 History duloxetine 60 mg PO QAM 07/09/19 10/30/19 History dutasteride 0.5 mg PO QAM 07/09/19 10/30/19 History tadalafil [Cialis] 5 mg PO QAM 07/09/19 10/30/19 History pantoprazole 20 mg tablet,delayed 20 mg PO QAM #90 tab 08/21/19 10/30/19 Rx release acetaminophen 500 mg tablet 1,000 mg PO QAM PRN tab 09/03/19 10/30/19 History cholecalciferol (vitamin D3) 1,000 unit PO QAM 09/26/19 10/30/19 History [Vitamin D3] cyanocobalamin (vitamin B-12) 1,000 mcg PO QAM 09/26/19 10/30/19 History [Vitamin B-12] levothyroxine 100 mcg PO QPM 09/26/19 10/30/19 History losartan 50 mg PO QAM 09/26/19 10/30/19 History metoprolol succinate 25 mg PO QAM 09/26/19 10/30/19 History polyethylene glycol 3350 [Miralax] 17 g PO QPM 09/26/19 10/30/19 History desloratadine 5 mg tablet 5 mg PO QAM #30 tab 10/10/19 10/30/19 Rx albuterol sulfate 90 mcg/actuation 1 puff INHALATION QID PRN #8.5 gm 10/17/19 10/30/19 Rx aerosol inhaler doxycycline hyclate 100 mg capsule 100 mg PO BID 7 Days #14 cap 10/17/19 10/30/19 Rx ferrous sulfate 1 ea PO DAILY 10/17/19 10/30/19 History acetaminophen 1,000 mg PO Q8 PRN #90 tab 10/30/19 Rx gabapentin 300 mg PO TID 10/30/19 10/30/19 History oxycodone 5 mg PO Q6H PRN #30 tab MDD 4 tabs 10/30/19 Rx prednisolone acetate OPHTHALMIC (EYE) QID 10/30/19 History sennosides [Senokot] 17.2 mg PO HS PRN #28 tab 10/30/19 Rx Patient History Medical History SHAMIR (acute kidney injury) 2017 in setting of Lyme disease/ehrlichiosis- was on dialysis x 6 treatments- now follows with [facility] nephrology Asthma stable BPH with obstruction/lower urinary tract symptoms Chronic osteoarthritis Coronary artery disease stents x2 (LAD/CX)- 2017 Dyslipidemia Enlarged prostate Gastroesophageal reflux disease controlled Hypertension Hypothyroidism Lumbar radiculopathy NSTEMI (non-ST elevated myocardial infarction) 2017- stents x 2 Obesity Osteoarthritis Peripheral neuropathy Surgical History History of left hip replacement History of tonsillectomy and adenoidectomy History of trigger finger REPAIRED Hx of cardiac cath 2017 (stents x 2), 2018 (no stents/medical management/felt no significant progression of large vessel disease and patent stents) Hx of colonoscopy Family History Other Family history non-contributory Social History Preferred Language: Italian Communication Ability: Effective Visual Impairment: Limited Hearing Ability: Use of Hearing Aid Structures Mechanic Required: No Beliefs That Will Affect Care: None marital status: Current Living Situation: Family Current Living Situation Comment: Son currently lives with the patient. 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) ; Hx Alcohol Use: Yes Alcohol type: beer and wine Alcohol Intake Frequency: Daily Alcohol Intake Frequency Comment: 0-1 per day Hx Substance Use: No Childhood Exposure to Second-Hand Smoke: Yes caffeine: Yes Dental Care, Regularly: Yes Physical Activity Frequency: Does not Exercise Seatbelt Use: always Sunscreen Use: No Review of Systems Review of Systems: All systems reviewed & are unremarkable except as noted in HPI & below Physical Exam Physical Exam: General: patient resting comfortably, NAD, non-toxic in appearance, AA&O x 4 Skin: dressing in place, c/d/i HEENT: NC/AT, PERRL, EOMI, anicteric sclera, conjunctiva without injection, external ear normal to inspection and nontender, nares patent, moist mucus membranes, dentition intact, no oropharyngeal lesions, neck supple, trachea midline, no LAD, no thyromegaly, no JVD Heart: +S1/S2, regular, no m/r/g Lungs: equal air entry bilaterally, no rales/rhonchi/wheezes Abd: +BS, soft, NT/ND, no masses/organomegaly/ascites Ext: warm, 2+ pulses in UE/LE bilaterally, no clubbing/cyanosis or edema Neuro: nonfocal, patient AA&O x 4, speech intact, no facial droop, moving all extremities on command with equal strength 5/5 Results & Data ([facility]) Vital Signs (Past 12 Hours) Vital Signs Temp Pulse Pulse Resp BP BP Pulse Ox 10/31/19 03:35 64 188/85 H 10/31/19 02:53 36.4 C L 63 16 185/87 H 191/84 H 93 03/10/20 23:10 36.6 C 61 16 163/76 H 95 10/30/19 19:31 55 L 17 167/75 H 100 10/30/19 18:26 36.7 C 59 L 16 161/74 H 99 10/30/19 17:53 36.3 C L 55 L 16 163/79 H 99 Laboratory Results Lab Results 10/03/19 10/03/19 10/03/19 Range/Units 11:21 11:21 11:21 WBC 6.91 (4.8-10.8) K/uL RBC 4.04 L (4.7-6.1) M/uL Hgb 12.7 L (14.0-18.0) g/dL Hct 38.9 L (42-52) % MCV 96.3 (80-100) fL MCH 31.4 (25-34) pg MCHC 32.6 (32-36) g/dL RDW Std Deviation 48.3 H (36.4-46.3) fL RDW Coeff of Ross 13.8 (11.5-14.5) % Plt Count 205 (130-400) K/uL MPV 9.3 (7.4-10.4) fL Immature Gran % (Auto) 0.4 % Neut % (Auto) 67.6 % Lymph % (Auto) 19.5 % [place] % (Auto) 8.8 % Eos % (Auto) 3.3 % Baso % (Auto) 0.4 % Immature Gran # (Auto) 0.03 H (0.00-0.02) K/uL Neut # (Auto) 4.66 (1.4-6.5) K/uL Lymph # (Auto) 1.35 (1.2-3.4) K/uL [place] # (Auto) 0.61 H (0.11-0.59) K/uL Eos # (Auto) 0.23 (0-0.5) K/uL Baso # (Auto) 0.03 (0-0.2) K/uL PT 10.3 (9.0-12.0) Seconds INR 1.0 (0.9-1.1) APTT 24.2 (21.0-31.0) Seconds PTT Ratio 0.9 Sodium (136-145) mmol/L Potassium (3.5-5.1) mmol/L Chloride (98-107) mmol/L Carbon Dioxide (21-32) mmol/L Anion Gap (3-11) BUN (7-18) mg/dl Creatinine (0.6-1.4) mg/dl Est Cr Clr Drug Dosing ml/min Est GFR ( Amer) Est GFR (Non-Af Amer) BUN/Creatinine Ratio (10-20) Glucose (70-99) mg/dl Estimat Average Glucose mg/dl Hemoglobin A1c (4.5-5.6) % Calcium (8.5-10.1) mg/dl Albumin (3.4-5.0) gm/dl Urine Color Urine Appearance (Clear) Urine pH (4.5-7.5) Ur Specific [place] (1.000-1.030) Urine Protein (Negative) Urine Glucose (UA) (Negative) Urine Ketones (Negative) Urine Blood (Negative) Urine Nitrite (Negative) Urine Bilirubin (Negative) Urine Urobilinogen (Negative) Ur Leukocyte Esterase (Negative) Urine WBC (Auto) (0-5) /hpf Urine RBC (Auto) (0-4) /hpf U Hyaline Cast (Auto) (0-5) /lpf U Epithel Cells (Auto) (0-5) /lpf Urine Bacteria (Auto) (Negative) Blood Type A Negative Antibody Screen NEGATIVE 10/03/19 10/03/19 10/03/19 Range/Units 11:21 11:21 11:21 WBC (4.8-10.8) K/uL RBC (4.7-6.1) M/uL Hgb (14.0-18.0) g/dL Hct (42-52) % MCV (80-100) fL MCH (25-34) pg MCHC (32-36) g/dL RDW Std Deviation (36.4-46.3) fL RDW Coeff of Ross (11.5-14.5) % Plt Count (130-400) K/uL MPV (7.4-10.4) fL Immature Gran % (Auto) % Neut % (Auto) % Lymph % (Auto) % [place] % (Auto) % Eos % (Auto) % Baso % (Auto) % Immature Gran # (Auto) (0.00-0.02) K/uL Neut # (Auto) (1.4-6.5) K/uL Lymph # (Auto) (1.2-3.4) K/uL [place] # (Auto) (0.11-0.59) K/uL Eos # (Auto) (0-0.5) K/uL Baso # (Auto) (0-0.2) K/uL PT (9.0-12.0) Seconds INR (0.9-1.1) APTT (21.0-31.0) Seconds PTT Ratio Sodium 143 (136-145) mmol/L Potassium 4.7 (3.5-5.1) mmol/L Chloride 111 H (98-107) mmol/L Carbon Dioxide 26 (21-32) mmol/L Anion Gap 6.0 (3-11) BUN 35 H (7-18) mg/dl Creatinine 1.38 (0.6-1.4) mg/dl Est Cr Clr Drug Dosing 48.2 ml/min Est GFR ( Amer) 55.2 Est GFR (Non-Af Amer) 47.6 BUN/Creatinine Ratio 25.3 H (10-20) Glucose 137 H (70-99) mg/dl Estimat Average Glucose 123 mg/dl Hemoglobin A1c 5.9 H (4.5-5.6) % Calcium 8.5 (8.5-10.1) mg/dl Albumin 3.4 (3.4-5.0) gm/dl Urine Color Dark Yellow Urine Appearance Clear (Clear) Urine pH 5.0 (4.5-7.5) Ur Specific [place] 1.032 H (1.000-1.030) Urine Protein Trace H (Negative) Urine Glucose (UA) Negative (Negative) Urine Ketones Trace H (Negative) Urine Blood Negative (Negative) Urine Nitrite Negative (Negative) Urine Bilirubin Negative (Negative) Urine Urobilinogen Negative (Negative) Ur Leukocyte Esterase Negative (Negative) Urine WBC (Auto) 1-5 (0-5) /hpf Urine RBC (Auto) 0-4 (0-4) /hpf U Hyaline Cast (Auto) 1-5 (0-5) /lpf U Epithel Cells (Auto) 10-20 H (0-5) /lpf Urine Bacteria (Auto) Negative (Negative) Blood Type Antibody Screen 03/11/20 Range/Units 05:05 WBC 11.79 H (4.8-10.8) K/uL RBC 3.76 L (4.7-6.1) M/uL Hgb 12.0 L (14.0-18.0) g/dL Hct 35.4 L (42-52) % MCV 94.1 (80-100) fL MCH 31.9 (25-34) pg MCHC 33.9 (32-36) g/dL RDW Std Deviation 48.0 H (36.4-46.3) fL RDW Coeff of Ross 14.0 (11.5-14.5) % Plt Count 216 (130-400) K/uL MPV 8.8 (7.4-10.4) fL Immature Gran % (Auto) 0.3 % Neut % (Auto) 85.2 % Lymph % (Auto) 7.4 % [place] % (Auto) 7.1 % Eos % (Auto) 0.0 % Baso % (Auto) 0.0 % Immature Gran # (Auto) 0.03 H (0.00-0.02) K/uL Neut # (Auto) 10.05 H (1.4-6.5) K/uL Lymph # (Auto) 0.87 L (1.2-3.4) K/uL [place] # (Auto) 0.84 H (0.11-0.59) K/uL Eos # (Auto) 0.00 (0-0.5) K/uL Baso # (Auto) 0.00 (0-0.2) K/uL PT (9.0-12.0) Seconds INR (0.9-1.1) APTT (21.0-31.0) Seconds PTT Ratio Sodium (136-145) mmol/L Potassium (3.5-5.1) mmol/L Chloride (98-107) mmol/L Carbon Dioxide (21-32) mmol/L Anion Gap (3-11) BUN (7-18) mg/dl Creatinine (0.6-1.4) mg/dl Est Cr Clr Drug Dosing ml/min Est GFR ( Amer) Est GFR (Non-Af Amer) BUN/Creatinine Ratio (10-20) Glucose (70-99) mg/dl Estimat Average Glucose mg/dl Hemoglobin A1c (4.5-5.6) % Calcium (8.5-10.1) mg/dl Albumin (3.4-5.0) gm/dl Urine Color Urine Appearance (Clear) Urine pH (4.5-7.5) Ur Specific [place] (1.000-1.030) Urine Protein (Negative) Urine Glucose (UA) (Negative) Urine Ketones (Negative) Urine Blood (Negative) Urine Nitrite (Negative) Urine Bilirubin (Negative) Urine Urobilinogen (Negative) Ur Leukocyte Esterase (Negative) Urine WBC (Auto) (0-5) /hpf Urine RBC (Auto) (0-4) /hpf U Hyaline Cast (Auto) (0-5) /lpf U Epithel Cells (Auto) (0-5) /lpf Urine Bacteria (Auto) (Negative) Blood Type Antibody Screen Diagnostic Findings SINGLE VIEW PELVIS; SINGLE VIEW RIGHT HIP CLINICAL HISTORY: Postoperative examination. FINDINGS: An AP portable view of the hips and pelvis with a crosstable lateral portable view of the right hip are obtained. A bipolar right hip arthroplasty is in near-anatomic alignment. A single cortical lag screw transfixes the acetabular cup. No acute fracture is identified. Subcutaneous gas and soft tissue edema overlying the right hip are expected postoperative findings. A left hip arthroplasty is also in place. Degenerative sclerosis is noted in the sacroiliac joints and pubic symphysis. IMPRESSION: Expected postoperative findings status post right hip arthroplasty. No acute fracture is seen. ACT 112: Negative or not required by law. Electronically signed by: Anthony Mercado M.D. 10/30/2019 4:10 PM Dictated: 10/30/19 1609 Transcribed: 10/30/19 1609 PG Care Time/CCT Total # of Minutes Spent Total Time Spent with Patient: Total time spent is greater than 50% in coordination of care (as documented) at patient's floor/unit and/or counseling patient: Coding Level of Care Code 99448 Inpt Consult Level 3 Diagnoses Hypertension I10 Hypertension type: essential hypertension Coronary artery disease I25.10 Coronary Disease-Associated Artery/Lesion type: [place] artery [place] vs. transplanted heart: [place] heart Associated angina: without angina Dyslipidemia E78.5 Gastroesophageal reflux disease K21.9 Esophagitis presence: esophagitis presence not specified Asthma J45.909 Asthma severity: unspecified severity Asthma persistence: unspecified Asthma complication type: unspecified BPH with obstruction/lower urinary tract symptoms N40.1; N13.8 Hypothyroidism E03.9 Hypothyroidism type: unspecified (1) Coronary artery disease Coronary Disease-Associated Artery/Lesion type: [place] artery [place] vs. transplanted heart: [place] heart Associated angina: without angina Qualified Code(s): I25.10 - Atherosclerotic heart disease of [place] coronary artery without angina pectoris (2) Gastroesophageal reflux disease Esophagitis presence: esophagitis presence not specified Qualified Code(s): K21.9 - Gastro-esophageal reflux disease without esophagitis (3) Asthma Asthma severity: unspecified severity Asthma persistence: unspecified Asthma complication type: unspecified Qualified Code(s): J45.909 - Unspecified asthma, uncomplicated (4) Hypertension Hypertension type: essential hypertension Qualified Code(s): I10 - Essential (primary) hypertension (5) Hypothyroidism Hypothyroidism type: unspecified Qualified Code(s): E03.9 - Hypothyroidism, unspecified
[2019-10-31 06:07] LABS: BUN Creatinine Ratio 26.3 (10-20); Calcium 8.6 mg/dl (8.5-10.1); Creatinine Clr Calc Pharmacy 46.1 ml/min; Est GFR (African American) 53.3; Potassium 5.1 mmol/L (3.5-5.1)
[2019-10-31] MEDS ORDERED: CLOPIDOGREL BISULFATE 75 MG TAB PO SCH (09:00)
[2019-10-31] MEDS ORDERED: METOPROLOL SUCC 25MG EXT REL TAB PO SCH (09:00)
[2019-10-31] MEDS ORDERED: PANTOprazole 40 MG TAB PO SCH (09:00)
[2019-10-31] MEDS ORDERED: AMLODIPINE BESYLATE 5 MG TAB PO SCH (09:00)
[2019-10-31] MEDS ORDERED: ASPIRIN 81 MG ECTAB PO SCH (09:00)
[2019-10-31] MEDS ORDERED: MULTIVITAMIN TAB PO SCH (09:00)
[2019-10-31] MEDS ORDERED: FERROUS SULFATE 325 MG TAB PO SCH (09:00)
[2019-10-31] MEDS ORDERED: LOSARTAN POTASSIUM 50 MG TAB PO SCH (09:00)
[2019-10-31] MEDS ORDERED: DULOXETINE HCL 60 MG CAP PO SCH (09:00)
[2019-10-31] MEDS: *DUTASTERIDE*ORDER AWAITING ACTION SCH ×2 (09:10→15:27)
[2019-10-31] MEDS: DOCUSATE SODIUM 100 MG CAP PO SCH (09:11)
[2019-10-31] MEDS: GABAPENTIN 300 MG CAP PO SCH ×2 (09:11→13:38)
[2019-10-31] MEDS: prednisoLONE acetate 1% OP SUSP 5 ML BTL OP SCH ×3 (09:12→17:19)
--- NOTE | 2019-10-31 09:47 | Orthopedic Progress Note ---
Date of Service October 31, 2019 Assessment & Plan (1) Degenerative joint disease of right hip: Status post right total hip arthroplasty, POD #1 -Ancef x24 -DVT prophylaxis: SCDs, teds, Plavix, 81 mg ASA daily -Weight-bear as tolerated right lower extremity -Posterior hip precaution -PT/OT -Postoperative x-ray demonstrates a well aligned well fixed total hip prosthesis without evidence of fracture or dislocation. -A.m. labs, Hypertension, 160 this AM -DC planning Home w HH if Okay w medical consult. Admission and Anticipated Discharge Date Admission Date: October 30, 2019 Supervising Physician Co-Signing Physician Notes Patient seen and examined, agree with above assessment and plan. Subjective Post Op Day #1 Feeling well, pain controlled, denies SOB, CP, N/V Been having some Hypertension. Medical input appreciated, no new recommendations at this time. Physical Exam Physical Exam: Right hip dressings c/d/i, no drainage. Toes/ ankle mobile. No calf tenderness. A&Ox3. Results & Data ([facility]) Vital Signs (Past 12 Hours) Vital Signs Temp Pulse Pulse Resp BP BP Pulse Ox 10/31/19 09:17 160/80 H 10/31/19 07:45 36.4 C L 63 16 170/75 H 97 10/31/19 03:35 64 188/85 H 10/31/19 02:53 36.4 C L 63 16 185/87 H 191/84 H 93 10/30/19 23:10 36.6 C 61 16 163/76 H 95
--- NOTE | 2019-10-31 12:36 | Orthopedic Progress Note ---
Date of Service October 31, 2019 Assessment & Plan (1) Degenerative joint disease of right hip: Status post right total hip arthroplasty POD#1 -Ancef x24 -DVT prophylaxis: SCDs, teds, Plavix, 81 mg ASA daily -Weight-bear as tolerated right lower extremity -Posterior hip precaution -PT/OT -Postoperative x-ray demonstrates a well aligned well fixed total hip prosthesis without evidence of fracture or dislocation. -A.m. labs - hgb 12.0, see above -Hypertension, 160 this AM, med recs appreciated -DC planning home with Admission and Anticipated Discharge Date Admission Date: October 30, 2019 Subjective Post Op Day #1 Feeling well, pain controlled, denies SOB, CP, N/V Been having some Hypertension. Medical input appreciated, no new recommendations at this time. Review of Systems Review of Systems: All systems reviewed & are unremarkable except as noted in HPI & below Constitutional: as per Subjective / HPI Physical Exam Physical Exam: RLE NVSI +EHL/FHL/TA/GS SILT grossly, +2 DP pulse, compartments soft NT, dressing cdi. Constitutional: WD/WN, vitals as above Results & Data ([facility]) Vital Signs (Past 12 Hours) Vital Signs Temp Pulse Pulse Resp BP BP Pulse Ox 10/31/19 09:17 160/80 H 10/31/19 07:45 36.4 C L 63 16 170/75 H 97 10/31/19 03:35 64 188/85 H 10/31/19 02:53 36.4 C L 63 16 185/87 H 191/84 H 93 Laboratory Results 10/31/19 10/31/19 Range/Units 05:05 05:05 WBC 11.79 H (4.8-10.8) K/uL RBC 3.76 L (4.7-6.1) M/uL Hgb 12.0 L (14.0-18.0) g/dL Hct 35.4 L (42-52) % MCV 94.1 (80-100) fL MCH 31.9 (25-34) pg MCHC 33.9 (32-36) g/dL RDW Std Deviation 48.0 H (36.4-46.3) fL RDW Coeff of Ross 14.0 (11.5-14.5) % Plt Count 216 (130-400) K/uL MPV 8.8 (7.4-10.4) fL Immature Gran % (Auto) 0.3 % Neut % (Auto) 85.2 % Lymph % (Auto) 7.4 % [place] % (Auto) 7.1 % Eos % (Auto) 0.0 % Baso % (Auto) 0.0 % Immature Gran # (Auto) 0.03 H (0.00-0.02) K/uL Neut # (Auto) 10.05 H (1.4-6.5) K/uL Lymph # (Auto) 0.87 L (1.2-3.4) K/uL [place] # (Auto) 0.84 H (0.11-0.59) K/uL Eos # (Auto) 0.00 (0-0.5) K/uL Baso # (Auto) 0.00 (0-0.2) K/uL Sodium 137 (136-145) mmol/L Potassium 5.1 (3.5-5.1) mmol/L Chloride 106 (98-107) mmol/L Carbon Dioxide 24 (21-32) mmol/L Anion Gap 7.0 (3-11) BUN 37 H (7-18) mg/dl Creatinine 1.42 H (0.6-1.4) mg/dl Est Cr Clr Drug Dosing 46.1 ml/min Est GFR ( Amer) 53.3 Est GFR (Non-Af Amer) 46.0 BUN/Creatinine Ratio 26.3 H (10-20) Glucose 123 H (70-99) mg/dl Calcium 8.6 (8.5-10.1) mg/dl
--- NOTE | 2019-10-31 13:56 | Hospitalist Progress Note ---
Date of Service October 31, 2019 Assessment & Plan (1) Hypertension: - Elevated BP following right SINAN on 10/30/[address] Liu. Related to holding Losartan, IVFs and steroids. - Continue home Metoprolol and Amlodipine. - Resumed home Losartan post op as prescribed. - Expect improvement in BP following discharge to home; f/u with PCP to discuss if necessary. (2) Coronary artery disease: - CAD s/p PCI of LAD and LCx in 07/2017. Nuclear stress test in July 2019 negative for inducible ischemia. Stable CAD. Patient follows with Cardiology and was last see on 10/17/19 for preoperative clearance. - Continue ASA and Plavix. - Continue Atorvastatin, Losartan and Metoprolol. (3) Dyslipidemia: - Continue Atorvastatin. (4) Gastroesophageal reflux disease: - Continue Protonix. (5) Asthma: - Continue Albuterol PRN. (6) BPH with obstruction/lower urinary tract symptoms: - Continue Dutasteride. (7) Hypothyroidism: - TSH on 10/23/19 normal at 2.47 - Continue Synthroid as prescribed. Dispo: Med/surg; will sign off, patient is medically stable for discharge this evening. Admission and Anticipated Discharge Date Admission Date: October 30, 2019 Supervising Physician Co-Signing Physician Notes Attending Attestation - Chart reviewed in detail, care plan d/w CHATO Clements. I agree w/ the hamilton components of her documentation. POD #1 s/p right THR. Known CAD/HTN. Review of EMR shows numerous high BP readings in the past as well. Agree w/ Ms Tyree's plans for BP control. Uncertain if some of the BP elevation is pain, anxiety, "white coat" phenomenon, and/or steroid induced contributing to high readings. Either way would resume all normal BP meds and f/u PCP within a week to recheck BP. Other medical issues, labs, etc acceptable. Arvind Hayward MD Subjective BP remains elevated, likely related to acute hospitalization. Expect improvement in levels following discharge to home. Resumed home ARB as prescribed. Can be discharged to home this evening. Review of Systems Review of Systems: All systems reviewed & are unremarkable except as noted in HPI & below Constitutional: + fatigue and + weakness; no fever, no chills and no anorexia Respiratory: no cough, no dyspnea and no dyspnea on exertion Cardiovascular: no chest pain, no palpitations and no edema Gastrointestinal: no abdominal pain, no nausea, no vomiting and no constipation Genitourinary: no difficulty urinating Musculoskeletal: no back pain and no joint pain Integumentary: no non-healing lesions Physical Exam Physical Exam: General: Resting comfortably HEENT: NC/AT; PERRLA with EOMI; [place] conjunctiva, MMM. No erythema of posterior pharynx Neck: Supple and nontender Cardiac: RRR Lungs: CTA bilaterally Abdomen: Bowel normoactive X 4; Nontender to palpation Extremities: Warm. No edema present Neuro: No focal weakness Skin: No rash Results & Data ([facility]) Vital Signs (Past 12 Hours) Vital Signs Temp Pulse Pulse Resp BP BP Pulse Ox 10/31/19 13:00 36.8 C 69 18 154/69 H 97 10/31/19 09:17 160/80 H 10/31/19 07:45 36.4 C L 63 16 170/75 H 97 10/31/19 03:35 64 188/85 H 10/31/19 02:53 36.4 C L 63 16 185/87 H 191/84 H 93 Laboratory Results 10/31/19 10/31/19 Range/Units 05:05 05:05 WBC 11.79 H (4.8-10.8) K/uL RBC 3.76 L (4.7-6.1) M/uL Hgb 12.0 L (14.0-18.0) g/dL Hct 35.4 L (42-52) % MCV 94.1 (80-100) fL MCH 31.9 (25-34) pg MCHC 33.9 (32-36) g/dL RDW Std Deviation 48.0 H (36.4-46.3) fL RDW Coeff of Ross 14.0 (11.5-14.5) % Plt Count 216 (130-400) K/uL MPV 8.8 (7.4-10.4) fL Immature Gran % (Auto) 0.3 % Neut % (Auto) 85.2 % Lymph % (Auto) 7.4 % Boyle % (Auto) 7.1 % Eos % (Auto) 0.0 % Baso % (Auto) 0.0 % Immature Gran # (Auto) 0.03 H (0.00-0.02) K/uL Neut # (Auto) 10.05 H (1.4-6.5) K/uL Lymph # (Auto) 0.87 L (1.2-3.4) K/uL Boyle # (Auto) 0.84 H (0.11-0.59) K/uL Eos # (Auto) 0.00 (0-0.5) K/uL Baso # (Auto) 0.00 (0-0.2) K/uL Sodium 137 (136-145) mmol/L Potassium 5.1 (3.5-5.1) mmol/L Chloride 106 (98-107) mmol/L Carbon Dioxide 24 (21-32) mmol/L Anion Gap 7.0 (3-11) BUN 37 H (7-18) mg/dl Creatinine 1.42 H (0.6-1.4) mg/dl Est Cr Clr Drug Dosing 46.1 ml/min Est GFR ( Amer) 53.3 Est GFR (Non-Af Amer) 46.0 BUN/Creatinine Ratio 26.3 H (10-20) Glucose 123 H (70-99) mg/dl Calcium 8.6 (8.5-10.1) mg/dl PG Care Time/CCT Total # of Minutes Spent Total Time Spent with Patient: Total time spent is greater than 50% in coordination of care (as documented) at patient's floor/unit and/or counseling patient: Coding Level of Care Code 82503 Subseq Hosp Care Lvl 2 Diagnoses Hypertension I10 Hypertension type: essential hypertension Coronary artery disease I25.10 Associated angina: without angina Coronary Disease-Associated Artery/Lesion type: douglas artery [place] vs. transplanted heart: douglas heart Dyslipidemia E78.5 Gastroesophageal reflux disease K21.9 Esophagitis presence: esophagitis presence not specified Asthma J45.909 Asthma complication type: unspecified Asthma persistence: unspecified Asthma severity: unspecified severity BPH with obstruction/lower urinary tract symptoms N40.1; N13.8 Hypothyroidism E03.9 Hypothyroidism type: unspecified (1) Coronary artery disease Associated angina: without angina Coronary Disease-Associated Artery/Lesion type: douglas artery [place] vs. transplanted heart: douglas heart Qualified Code(s): I25.10 - Atherosclerotic heart disease of douglas coronary artery without angina pectoris (2) Hypothyroidism Hypothyroidism type: unspecified Qualified Code(s): E03.9 - Hypothyroidism, unspecified (3) Gastroesophageal reflux disease Esophagitis presence: esophagitis presence not specified Qualified Code(s): K21.9 - Gastro-esophageal reflux disease without esophagitis (4) Hypertension Hypertension type: essential hypertension Qualified Code(s): I10 - Essential (primary) hypertension (5) Asthma Asthma complication type: unspecified Asthma persistence: unspecified Asthma severity: unspecified severity Qualified Code(s): J45.909 - Unspecified asthma, uncomplicated
[2019-10-31] MEDS: OXYCODONE HCL IR 5 MG TAB (IMMEDIATE RELEASE) PO PRN ×2 (14:32→18:05)
--- NOTE | 2019-10-31 22:34 | Discharge Summary ---
Date of Service October 31, 2019 Admission HPI Per Admitting Provider The patient is a 83 year old male who presents with complaints of severe right hip pain and DJD. The patient has failed outpatient conservative treatments to this point which included home exercise/walking program, patient unable to take NSAIDs due to plavix, declined IA corticosteroid injection. The patient's pain and limited function have progressed to the point where they severely hinder their activities of daily living and they no longer tolerate exercise programs. They are requesting to proceed with total hip replacement surgery. Principal Diagnosis Right total hip replacement -right hip djd Discharge Exam RLE NVSI +EHL/FHL/TA/GS SILT grossly, +2 DP pulse, compartments soft NT, dressing cdi. Constitutional WD/WN, vitals as above Discharge Data Allergies Allergy/AdvReac Type Severity Reaction Status Date / Time erythromycin base Allergy Intermediate THROAT Verified 10/30/19 10:10 BEGAN TO SWELL SHUT simvastatin Allergy Intermediate MUSCLE Verified 10/30/19 10:10 ACHES lisinopril AdvReac Intermediate COUGH Verified 10/30/19 10:10 Consultations 10/31/19 04:22 Consult Hospitalist Routine 10/31/19 08:00 Consult Case Management - Discharge Planning Routine Procedures Performed Operation Date: 10/30/19 11:55 Actual Procedures p Right Total Hip Arthroplasty - Uncemented(Right) - Tony Liu DO Hospital Course (1) Degenerative joint disease of right hip: The patient is a 83 -year-old male who presents with long standing history of severe right hip DJD and failed outpatient conservative treatments. The patient's symptoms have progressed to the point where it has been difficult to perform even normal activities of daily living. I indicated the patient for a right total hip arthroplasty, the risks, benefits and complications of the procedure include but not limited to infection, bleeding, damage to bone, nerves, vessels, surrounding soft tissue, may develop blood clots, loss of function, leg length discrepancy, dislocation, failure of the components, loosening of the components, the need for additional surgery and . The patient wished to proceed with surgery at this time and informed consent was obtained. Hospital Course: On 10/30/19 the patient was taken to the operating room, adequate anesthesia administered and underwent a right total hip arthroplasty. The patient tolerated the procedure well and was taken to the PACU in stable condition. Post-operatively the patient was started on a DVT ppx medication and given appropriate IV antibiotics. Consults were placed to medical hospitalist, physical therapy, occupational therapy and case management. On POD#1, the patient did well overnight and their pain was well controlled. Labs were drawn and the Hgb was 12.0. The patient progressed well with PT. The patient was seen by the medical team due to hypertension. Patient reported stopping lorsartan prior to surgery. This was restarted post-operatively. Patient remained asymptomatic. BP improved, 122/66 upon discharge. Dressings were changed at this time and the incision was clean, dry and intact. The patients hospital stay was relatively uneventful and they were deemed stable by the orthopedic team and consultants to be discharged home with HH on 10/31/19. Discharge Instructions: Upon discharge the patient may weight bear as tolerates through their operative extremity. They were instructed to keep the incision clean and dry at all times. The patient may shower but should not submerge the incision, avoid bathing, pools and hot tubes. The patient was given a script for pain medication and should take as instructed. The patient was given a script for DVT ppx 81mg ASA BID and should take as directed. The patient was instructed to not drive or travel for long distances until cleared to do so. If the patient develops any symptoms of fevers, chills, nausea, vomiting, increased redness, swelling, pain or drainage from the surgical site, they should notify the office and/or proceed to the nearest emergency room. The patient should follow up in 10-14 days after surgery for their routine post-operative follow-up appointment and should call the office to confirm the date and time. Instructed patient to follow up with PCP upon discharge. Status post right total hip arthroplasty POD#1 -Ancef x24 -DVT prophylaxis: SCDs, teds, Plavix, 81 mg ASA daily -Weight-bear as tolerated right lower extremity -Posterior hip precaution -PT/OT -Postoperative x-ray demonstrates a well aligned well fixed total hip prosthesis without evidence of fracture or dislocation. -A.m. labs - hgb 12.0, see above -Hypertension, 160 this AM, med recs appreciated -DC planning home with HH Total Time Total Time Spent Total Time Spent (In Minutes): 30 minutes Discharge Plan Discharge Items Patient Disposition: Home - Home Health Services Reason For Visit: Unilateral Primary Osteoarthritis, Right Hip Discharge Diagnosis: Right total hip replacement -right hip djd Condition on Discharge: Good Activity: Per Instructions section Lifting: Wait until after follow-up appointment Bathing: Keep incision dry Bathing Comment: No bathing, pools or hot tubs. Sexual Activity: Wait until after follow-up appointment Exercise/Sports: Wait until after follow-up appointment Driving/Machine Use: No driving Weightbearing: Full weightbearing Non-emergency contact: Primary Care Provider and Surgeon Call non-emergency contact if: you have any medication questions, your symptoms worsen, your pain is not controlled, your pain is worsening, your pain is unusual for you, your pain is concerning for you, you have a fever, your temperature is above 101, your wound has increased redness, your wound has increased drainage and your wound pain has increased Follow-up/Referrals: Catrachita Cardenas MD [Primary Care Provider] - 11/06/19 1:15 pm (APPT WITH [facility]) Diet: Heart Healthy Addtl Attending Provider Instructions: ACTIVITY RECOMMENDATIONS: SELF CARE INSTRUCTIONS AFTER TOTAL HIP REPLACEMENT Until the incision and soft tissues around your hip have healed, there is a possibility that the hip prosthesis could dislocate. A. Observe the following precautions to prevent dislocation: 1. Don't bend your hip greater than 90 degrees. 2. Avoid crossing your legs or ankles while standing or lying. 3. Sit with your feet placed 6 inches apart. 4. When sitting, keep your knees below your hips. Sit on a firm surface, avoid deep, soft chairs and couches. Use an elevated toilet seat in the bathroom. 5. Don't bend over at the waist. Use a long handled shoehorn and a sock aid to help you put on your shoes and socks. A head of advertising can help you pharmacy picking technician objects that are too high or too low to reach. 6. Keep car riding to a minimum for at least one month after surgery. B. Your balance may be shaky for a while. Use crutches or a walker until directed by your doctor. C. Use hand rails when walking on stairs. D. Wear low heeled shoes with non-slip soles. E. Be sure that your floors are free of things that could trip you - throw rugs, electrical cords, small objects. Avoid wet and waxed floors, especially with crutches and canes. F. Try to walk several times a day with rest periods between. G. Continue with all the exercises taught to you in the hospital. Again, make walking a part of your daily routine. SPECIAL CARE INSTRUCTIONS: VERY IMPORTANT TO READ AND REVIEW A. You may still be at risk for phlebitis and blood clots. 1. Wear surgical stockings (LANCE hose) for 2 weeks after surgery to improve circulation and reduce swelling. 2. Take your home medication Plavix and Aspirin 81mg daily or as directed by your doctor. This is your blood thinner. 3. High risk patients may be prescribed a stronger blood thinner if necessary. 4. If you are on Coumadin normally, your family doctor/senior cost accountant should monitor your blood work. Expect a phone call the day of or the day after bloodwork is drawn to adjust your dosage. B. You must take antibiotics before having dental work, bladder, bowel and ot her surgery. Your doctor will provide you with a permanent card to carry describing precautions. C. Call [facility] if you have a fever, redness or swelling around the incision, cloudy drainage from incision, or sudden increase in pain in your hip, not relieved by your regular pain medication. D. Please call the office at if you have any concerns or questions about your operation or recovery. * YOU MAY SHOWER, NO TUB BATHS UNTIL CLEARED BY YOUR DOCTOR. * WEAR LANCE HOSE 20 HOURS PER DAY FOR 2 WEEKS. * YOU SHOULD USE A WALKER OR CRUTCHES FOR 2-4 WEEKS. THIS WILL HELP PREVENT STRAIN ON YOUR HIP MUSCLE AND ALLOW IT TO HEAL PROPERLY. YOU MAY WEAN TO A CANE TOLERATED. * MOST PATIENTS WILL HAVE HOME NURSING FOR THERAPY. IF YOU DECIDE TO DO OUTPATIENT PHYSICAL THERAPY, PLEASE SCHEDULE THIS 3 TIMES PER WEEK. *PREVENA incisional vac is a special dressing covering your incision. This dressing provides a sterile dry environment while you are healing. The dressing is to be left in place for 7 days post-operatively. Your home nurse or surgeon will remove. If you develop any redness or blisters or have any questions notify your surgeon immediately. FOLLOW UP VISIT: If appointment is not already scheduled: Please call [facility] to make a follow-up appointment for 2 weeks after your surgery at . Follow up with your PCP next 1-2 weeks for BP checks. Pending Studies at Discharge: No Stand-Alone Forms: My [facility] [employer], Opioid Pain Management, Smoking Cessation Medications and DC Order Prescriptions: New acetaminophen 500 mg Tablet 1,000 mg PO Q8 PRN (Reason: pain/fevers) Qty: 90 RF: 0 oxycodone 5 mg Tablet 5 mg PO Q6H MDD 4 tabs PRN (Reason: pain) Qty: 30 RF: 0 sennosides [Senokot] 8.6 mg Tablet 17.2 mg PO HS PRN (Reason: constipation) Qty: 28 RF: 0 Continued pantoprazole 20 mg tablet,delayed release (DR/EC) 20 mg PO QAM Qty: 90 RF: 2 desloratadine 5 mg tablet 5 mg PO QAM Qty: 30 RF: 5 ferrous sulfate 1 ea PO DAILY RF: 0 doxycycline hyclate 100 mg capsule 100 mg PO BID 7 Days Qty: 14 RF: 0 albuterol sulfate [Proventil HFA] 90 mcg/actuation HFA aerosol inhaler 1 puff INHALATION QID PRN (Reason: Wheezing) Qty: 8.5 RF: 0 nitroglycerin 0.4 mg tablet, sublingual 0.4 mg SL .COMPLEX RF: 0 amlodipine 5 mg tablet 5 mg PO QAM Qty: 30 RF: 0 ascorbic acid (vitamin C) 500 mg capsule 500 mg PO QAM RF: 0 calcium carbonate-vitamin D3 500 mg(1,250mg) -200 unit tablet 1 tab PO QAM RF: 0 atorvastatin 40 mg tablet 40 mg PO HS RF: 0 clopidogrel 75 mg tablet 75 mg PO QAM RF: 0 dutasteride 0.5 mg capsule 0.5 mg PO QAM RF: 0 tadalafil [Cialis] 5 mg tablet 5 mg PO QAM RF: 0 duloxetine 60 mg capsule,delayed release(DR/EC) 60 mg PO QAM RF: 0 valacyclovir 500 mg tablet 500 mg PO QAM RF: 0 aspirin [Aspir-81] 81 mg Tablet,Delayed Release (Dr/Ec) 81 mg PO QAM RF: 0 losartan 50 mg Tablet 50 mg PO QAM RF: 0 cyanocobalamin (vitamin B-12) [Vitamin B-12] 1,000 mcg Tablet 1,000 mcg PO QAM RF: 0 metoprolol succinate 25 mg Tablet Extended Release 24 Hr 25 mg PO QAM RF: 0 polyethylene glycol 3350 [Miralax] 17 gram/dose Powder 17 g PO QPM RF: 0 cholecalciferol (vitamin D3) [Vitamin D3] 25 mcg (1,000 unit) Tablet 1,000 unit PO QAM RF: 0 levothyroxine 100 mcg tablet 100 mcg PO QPM RF: 0 gabapentin 300 mg capsule 300 mg PO TID RF: 0 prednisolone acetate 1 % drops,suspension ophthalmic (eye) QID RF: 0 Discontinued acetaminophen [Tylenol Extra Strength] 500 mg tablet 1,000 mg PO QAM PRN (Reason: Pain) RF: 0 Discharge Orders: Discharge Order (Routine); Ordered 10/31/19 Ordered By: Josh Mcnamara/Other Patient Handouts: Hip Replace Total Activity, Hip Replace Total Dc Admission Data Admit Date/Time: 10/30/19 15:49 Attending Provider: Tony Liu Admit Provider: Tony Liu Primary Care Provider: Catrachita Cardenas Other Providers: Padmini Tena ; Arvind Hayward Other Interventions: Discharge Summary Assessment (RN) Last Done: 10/31/19 17:26 DC Date/Time DO NOT enter until pt leaves facility: 10/31/19 18:15
== END 2019-10-31 18:15 | disposition home health service (06) | DRG 470 ==
LOC: ASU 09:46 → 3E 15:49

== ENCOUNTER 2019-11-21 17:13 | Observation (INO) ==
[2019-11-21] MEDS ORDERED: SODIUM CHLORIDE 0.9% 500 ML IV SCH (17:30)
[2019-11-21] MEDS ORDERED: SODIUM CHLORIDE 0.9% 1000ML 1,000 ML IV SCH (17:30)
[2019-11-21] MEDS ORDERED: SODIUM CHLORIDE 0.9% 1000ML 1,000 ML IV STA (17:45)
[2019-11-21] MEDS ORDERED: SODIUM CHLORIDE 0.9% 1000ML 500 ML IV ONE (17:45)
--- NOTE | 2019-11-21 17:45 | XRay Report ---
XR chest 1V portable HISTORY: weakness COMPARISON: Chest 10/14/2019. FINDINGS: The heart remains enlarged. Retrocardiac density favors a moderate hiatus hernia. No pleura l effusions. No pneumothorax. A few bibasilar linear densities suggesting subsegmental atelectasis. N o new focal lung consolidations to suggest pneumonia. IMPRESSION: No significant change compared to the prior study. No acute process. Stable cardiomegaly ACT 112: Negative or not required by law. Electronically signed by: Spencer Snyder M.D. 11/21/2019 5:44 PM
[2019-11-21 18:09] LABS: Prothrombin Time 10.9 Seconds (9.0-12.0)
--- NOTE | 2019-11-21 18:27 | Emergency Department Note ---
Impression & Plan Acute hypotension, Anemia, CHI (closed head injury), Fall, Hematoma of right hip ED Provider Note NAME: CHARLEY BROWN AGE: 84 SEX: M ARRIVES VIA: Walk-In INFORMANT: [Patient] ED PROVIDER(S): Delio Nunez MD CHIEF COMPLAINT: Hypotension PLAN: Disposition: Admitted Condition: [Good] MEDICAL DECISION MAKING: The patient presented from his primary due to feeling generally weak and was found to have hypotension. The patient recently had hip surgery and subsequent fall with hip dislocation. The patient also did have a fall and a head injury. Blood work and imaging were obtained. The patient was hydrated. He has a borderline troponin elevation but this is not significantly changed from prior. ECG did not reveal any ST elevation or depression. There are lateral T wave inversions. Head and chest imaging were negative for acute pathology. The patient did have a mild elevation of lactate but this was improved on repeat. Given the episodes of hypotension, mild dehydration on chemistry panel, and his borderline troponin, further management in the hospital is necessary. [facility] The patient was evaluated in the ER for further management. Triage Nursing notes reviewed and agree them. [Prior medical records reviewed] patient did have a drop in his hemoglobin of almost 2 g. Vital Signs: reviewed and remarkable for [no significant abnormalities] Differential diagnosis: Infection, dehydration, metabolic abnormality, hypo/hyperglycemia, electrolyte disturbance, anemia, hypoxia, cardiac sources, intracerebral event, toxicologic, neurologic, as well as other pathologies. ER treatment provided: Saline hydration Diagnostics interpreted by me: ECG: Rate: 73 Rhythm: Sinus rhythm [place]: Normal QRS: Normal ST segements: No ST elevation or depression. There is lateral T wave i nversions. Other: PACs noted. Cardiac Monitoring: Cardiac monitoring ordered by me: The patient was placed on continuous cardiac monitoring and observed. It revealed a normal sinus rhythm at 82 beats per minute without ectopy or evidence of dysrhythmia. Laboratory studies: [See below] I did review the old record for the patient's labs that were done prior to arrival. His CBC showed a mild anemia with hemoglobin that has dropped from prior by about 2 g. The patient has no leukocytosis. The patient's renal panel reveals a borderline low GFR and creatinine that is not significantly different than prior. He is mildly dehydrated. The patient has a mildly elevated troponin. This is not unusual for the patient on prior record review. Additional troponin will be necessary in order to trend. Imaging studies: Head CT: A noncontrast CT scan of the head was performed and was negative for tumor, fracture, intracranial hemorrhage, or other acute pathology. CT scan of the chest does not reveal any evidence of pulmonary embolism, pneumonia, or acute pathology to explain the patient's dizziness and hypotension. Consultation(s): Consultation was made with the [facility] physician group hospitalist service, Dr. Edin Guerrier. HPI: The patient is a 84 year old male who presents to the Emergency Room with complaints of hypotension. This started today and is stable. The patient also notes the following associated symptoms, generalized weakness for a few days, dizziness, a fall with head injury on the right forehead. The patient has noted rest as a relieving factor. Current pain is rated as 0/10. Patient recently underwent right total hip replacement by [facility] 3 weeks ago. He also had a fall and hip dislocation that was reduced. The patient then had another subsequent fall without injuring his hip but did strike the right side of his head. He feels generally weak. Pt denies LOC, headache, fevers, chills, diaphoresis, visual changes, neck pain, chest pain, breathing difficulties, nausea, vomiting, abdominal pain, back pain, melena, hematochezia, urinary symptoms, numbness, lymphadenopathy, rash, or other complaints. ROS: See above HPI for pertinent positives & negatives. A total of [10] systems reviewed and were otherwise negative. PAST MEDICAL HISTORY:[See Below] PAST SURGICAL HISTORY:[See Below] FAMILY HISTORY:[See Below] SOCIAL HISTORY:[See Below] no current smoking. HOME MEDICATIONS:[See Below] ALLERGIES:[See Below] VITALS:[See Below] PHYSICAL EXAMINATION: GENERAL: Awake, alert, well-appearing, in no distress HENT: Normocephalic, contusion and abrasion noted to the right forehead. Oropharynx unremarkable. EYES: Normal conjunctiva. Sclera non-icteric. NECK: Inspection normal. Non-tender. Supple. No nuchal rigidity. FROM. No ma sses. RESPIRATORY: Clear to auscultation. No wheezes. No rales. Normal respiratory effort. CARDIAC: Normal rate. Normal rhythm. No murmurs. No rubs. Extremities warm and well perfused. Pulses equal. No JVD. GI: Soft, non-distended. No tenderness to palpation. No rebound or guarding. No masses. RECTAL: Deferred. MUSCULOSKELETAL: Atraumatic. Chest examination reveals no tenderness. The back is symmetrical on inspection without obvious abnormality. There is no CVA tenderness to palpation. No joint edema. LOWER EXTREMITIES: Calves are equal size bilaterally and non-tender. 1+ lower edema. No discoloration. NEURO: Normal sensorium. No sensory or motor deficits noted. SKIN: No rash or jaundice noted. ED COURSE: Procedures: [none] [Critical Care:] No critical care intervention. Delio Nunez MD Past Med/Surg History Medical History (Updated 11/21/19 @ 18:22 by Delio Nunez MD) SHAMIR (acute kidney injury) 2017 in setting of Lyme disease/ehrlichiosis- was on dialysis x 6 treatments- now follows with [facility] nephrology Asthma stable BPH with obstruction/lower urinary tract symptoms Chronic osteoarthritis Coronary artery disease stents x2 (LAD/CX)- 2017 Dyslipidemia Enlarged prostate Gastroesophageal reflux disease controlled Hypertension Hypothyroidism Lumbar radiculopathy NSTEMI (non-ST elevated myocardial infarction) 2017- stents x 2 Obesity Osteoarthritis Peripheral neuropathy Social History Preferred Language: Ghanaian Communication Ability: Effective Visual Impairment: Limited Hearing Ability: Use of Hearing Aid 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) ; Hx Alcohol Use: Yes Alcohol type: beer and wine Alcohol Intake Frequency: Daily Alcohol Intake Frequency Comment: 0-1 per day Hx Substance Use: No Childhood Exposure to Second-Hand Smoke: Yes caffeine: Yes Dental Care, Regularly: Yes Physical Activity Frequency: Does not Exercise Seatbelt Use: always Sunscreen Use: No Allergies Allergies Allergy/AdvReac Type Severity Reaction Status Date / Time erythromycin base Allergy Intermediate THROAT Verified 11/21/19 20:08 BEGAN TO SWELL SHUT simvastatin Allergy Intermediate MUSCLE Verified 11/21/19 20:08 ACHES lisinopril AdvReac Intermediate COUGH Verified 11/21/19 20:08 Home Meds Home Medications Medication Instructions Recorded Confirmed aspirin [Aspir-81] 81 mg PO QAM 05/22/18 11/21/19 valacyclovir 500 mg PO QAM 05/22/18 11/21/19 amlodipine 5 mg tablet 5 mg PO QAM #30 tab 04/01/19 11/21/19 ascorbic acid (vitamin C) 500 mg 500 mg PO QAM cap 04/01/19 11/21/19 capsule calcium carbonate 500 mg (1,250 1 tab PO QAM tab 04/01/19 11/21/19 mg)-vitamin D3 200 unit tablet atorvastatin 40 mg PO HS 07/09/19 11/21/19 clopidogrel 75 mg PO QAM 07/09/19 11/21/19 dutasteride 0.5 mg PO QAM 07/09/19 11/21/19 tadalafil [Cialis] 5 mg PO QAM 07/09/19 11/21/19 cholecalciferol (vitamin D3) 1,000 unit PO QAM 09/26/19 11/21/19 [Vitamin D3] cyanocobalamin (vitamin B-12) 1,000 mcg PO QAM 09/26/19 11/21/19 [Vitamin B-12] levothyroxine 100 mcg PO QPM 09/26/19 11/21/19 polyethylene glycol 3350 [Miralax] 17 g PO QPM 09/26/19 11/21/19 gabapentin 300 mg PO TID 10/30/19 11/21/19 prednisolone acetate 1 drp OPL QID 10/30/19 11/21/19 metoprolol succinate 100 mg 100 mg PO QAM 11/01/19 11/21/19 tablet,extended release 24 hr ferrous sulfate [iron] 325 mg PO QAM 11/19/19 11/21/19 losartan 50 mg PO QAM 11/21/19 11/21/19 Previous Rx's Medication Instructions Recorded pantoprazole 20 mg tablet,delayed 20 mg PO QAM #90 tab 08/21/19 release desloratadine 5 mg tablet 5 mg PO QAM #30 tab 10/10/19 albuterol sulfate 90 mcg/actuation 1 puff INHALATION QID PRN #8.5 gm 10/17/19 aerosol inhaler acetaminophen 1,000 mg PO Q8 PRN #90 tab 10/30/19 sennosides [Senokot] 17.2 mg PO HS PRN #28 tab 10/30/19 duloxetine 60 mg capsule,delayed 60 mg PO QAM 30 Days #30 cap 11/01/19 release nitroglycerin 0.4 mg sublingual 0.4 mg SL .COMPLEX #10 tab 11/02/19 tablet Results & Data (ED) Vital Signs Vital Signs - 24 hr 11/21/19 17:15 11/21/19 17:30 11/21/19 17:48 Temperature 36.7 C Temperature Source Oral Pulse Rate 78 75 74 Respiratory Rate 18 22 20 Respiratory Effort / Characteristics Non-Labored Respiratory Depth Normal Respiratory Pattern Regular Blood Pressure 115/59 L 131/55 L Blood Pressure Mean 77 85 Pulse Oximetry 95 Oxygen Delivery Method Room Air Sepsis Recent Fever Within 48 Hours No Sepsis Action Taken by Nursing No Action Required 11/21/19 17:56 11/21/19 18:00 11/21/19 18:01 Temperature Temperature Source Pulse Rate 71 70 Respiratory Rate 24 20 Respiratory Effort / Characteristics Respiratory Depth Respiratory Pattern Blood Pressure 138/53 L Blood Pressure Mean 89 Pulse Oximetry 96 Oxygen Delivery Method Room Air Sepsis Recent Fever Within 48 Hours Sepsis Action Taken by Nursing 11/21/19 18:03 11/21/19 18:30 11/21/19 19:27 Temperature Temperature Source Pulse Rate 68 75 Respiratory Rate 21 16 Respiratory Effort / Characteristics Respiratory Depth Respiratory Pattern Blood Pressure 152/65 H 137/55 L Blood Pressure Mean 96 77 Pulse Oximetry 96 95 96 Oxygen Delivery Method Room Air Room Air Room Air Sepsis Recent Fever Within 48 Hours Sepsis Action Taken by Nursing 11/21/19 19:30 11/21/19 20:01 11/21/19 20:30 Temperature Temperature Source Pulse Rate 74 73 65 Respiratory Rate 21 22 19 Respiratory Effort / Characteristics Respiratory Depth Respiratory Pattern Blood Pressure 134/56 L 110/77 141/68 H Blood Pressure Mean 99 86 108 Pulse Oximetry 96 95 95 Oxygen Delivery Method Room Air Room Air Room Air Sepsis Recent Fever Within 48 Hours Sepsis Action Taken by Nursing 11/21/19 21:01 11/21/19 21:30 11/21/19 22:00 Temperature Temperature Source Pulse Rate 71 67 76 Respiratory Rate 21 21 18 Respiratory Effort / Characteristics Respiratory Depth Respiratory Pattern Blood Pressure 112/61 153/70 H 155/73 H Blood Pressure Mean 87 100 106 Pulse Oximetry 95 Oxygen Delivery Method Room Air Sepsis Recent Fever Within 48 Hours Sepsis Action Taken by Nursing 11/21/19 22:30 11/21/19 22:39 Temperature Temperature Source Pulse Rate 74 74 Respiratory Rate 21 22 Respiratory Effort / Characteristics Respiratory Depth Respiratory Pattern Blood Pressure 145/72 H 178/86 H Blood Pressure Mean 110 130 Pulse Oximetry Oxygen Delivery Method Sepsis Recent Fever Within 48 Hours Sepsis Action Taken by Nursing Laboratory Data Lab Results 11/21/19 11/21/19 11/21/19 Range/Units 17:45 17:45 17:45 PT 10.9 (9.0-12.0) Seconds INR 1.0 (0.9-1.1) Lactate (0.4-2.0) mmol/L Magnesium 2.4 (1.8-2.4) mg/dl Troponin I 0.052 H* (0-0.045) ng/ml TSH 0.924 (0.300-4.500) uIu/ml Urine Color Urine Appearance (Clear) Urine pH (4.5-7.5) Ur Specific [place] (1.000-1.030) Urine Protein (Negative) Urine Glucose (UA) (Negative) Urine Ketones (Negative) Urine Blood (Negative) Urine Nitrite (Negative) Urine Bilirubin (Negative) Urine Urobilinogen (Negative) Ur Leukocyte Esterase (Negative) Blood Type A Negative Antibody Screen NEGATIVE 11/21/19 11/21/19 11/21/19 Range/Units 17:45 18:50 20:11 PT (9.0-12.0) Seconds INR (0.9-1.1) Lactate 2.3 H* 1.5 (0.4-2.0) mmol/L Magnesium (1.8-2.4) mg/dl Troponin I (0-0.045) ng/ml TSH (0.300-4.500) uIu/ml Urine Color Dark Yellow Urine Appearance Clear (Clear) Urine pH 5.0 (4.5-7.5) Ur Specific [place] 1.028 (1.000-1.030) Urine Protein Negative (Negative) Urine Glucose (UA) Negative (Negative) Urine Ketones Trace H (Negative) Urine Blood Negative (Negative) Urine Nitrite Negative (Negative) Urine Bilirubin Negative (Negative) Urine Urobilinogen Negative (Negative) Ur Leukocyte Esterase Negative (Negative) Blood Type Antibody Screen Administered Medications Sodium Chloride (Nss 1000ml) 1,000 mls @ 125 mls/hr IV .Q8H AMBER Stop: 11/22/19 01:29 Last Admin: 11/21/19 18:51 Dose: 125 mls/hr Documented by: [id number] Sodium Chloride (Nss 1000ml) 1,000 mls @ 125 mls/hr IV .Q8H STA Stop: 11/22/19 01:44 Last Admin: 11/21/19 19:15 Dose: Not Given Documented by: [id number] Ioversol (Optiray 320 125ml) 116 ml IV ONCE PRN PRN Reason: Interaction Checking Stop: 11/25/19 19:14 Last Admin: 11/21/19 19:15 Dose: 116 ml Documented by: [id number] Discontinued Medications Sodium Chloride (Nss) 500 mls @ 999 mls/hr IV .Q31M AMBER Stop: 11/21/19 18:00 Last Infusion: 11/21/19 18:29 Dose: 0 mls/hr Documented by: [id number] Admin: 11/21/19 17:57 Dose: 999 mls/hr Documented by: [id number] Sodium Chloride (Nss 1000ml) 500 mls @ 999 mls/hr IV .Q31M ONE Stop: 11/21/19 18:15 Last Infusion: 11/21/19 19:42 Dose: 0 mls/hr Documented by: [id number] Admin: 11/21/19 19:16 Dose: 999 mls/hr Documented by: [id number] Discharge Plan Visit Data Chief Complaint: Hypotension Stated Complaint: KIDNEY FUCTION, DIZZY, LOW BP 80/56 Other Complaint: Dizziness Vertigo ED Provider: Delio Nunez Discharge Problem: Acute hypotension, Anemia, CHI (closed head injury), Fall, Hematoma of right hip Forms Stand Alone Forms: [facility] [employer] Prescriptions Prescriptions: No Action pantoprazole 20 mg tablet,delayed release (DR/EC) 20 mg PO QAM Qty: 90 RF: 2 desloratadine 5 mg tablet 5 mg PO QAM Qty: 30 RF: 5 duloxetine 60 mg capsule,delayed release(DR/EC) 60 mg PO QAM 30 Days Qty: 30 RF: 0 metoprolol succinate 100 mg tablet extended release 24 hr 100 mg PO QAM RF: 0 albuterol sulfate [Proventil HFA] 90 mcg/actuation HFA aerosol inhaler 1 puff INHALATION QID PRN (Reason: Wheezing) Qty: 8.5 RF: 0 amlodipine 5 mg tablet 5 mg PO QAM Qty: 30 RF: 0 ascorbic acid (vitamin C) 500 mg capsule 500 mg PO QAM RF: 0 calcium carbonate-vitamin D3 500 mg(1,250mg) -200 unit tablet 1 tab PO QAM RF: 0 nitroglycerin 0.4 mg tablet, sublingual 0.4 mg SL .COMPLEX Qty: 10 RF: 0 atorvastatin 40 mg tablet 40 mg PO HS RF: 0 clopidogrel 75 mg tablet 75 mg PO QAM RF: 0 dutasteride 0.5 mg capsule 0.5 mg PO QAM RF: 0 tadalafil [Cialis] 5 mg tablet 5 mg PO QAM RF: 0 ferrous sulfate [iron] 325 mg (65 mg iron) Tablet 325 mg PO QAM RF: 0 losartan 50 mg tablet 50 mg PO QAM RF: 0 valacyclovir 500 mg tablet 500 mg PO QAM RF: 0 aspirin [Aspir-81] 81 mg Tablet,Delayed Release (Dr/Ec) 81 mg PO QAM RF: 0 cyanocobalamin (vitamin B-12) [Vitamin B-12] 1,000 mcg Tablet 1,000 mcg PO QAM RF: 0 polyethylene glycol 3350 [Miralax] 17 gram/dose Powder 17 g PO QPM RF: 0 cholecalciferol (vitamin D3) [Vitamin D3] 25 mcg (1,000 unit) Tablet 1,000 unit PO QAM RF: 0 levothyroxine 100 mcg tablet 100 mcg PO QPM RF: 0 gabapentin 300 mg capsule 300 mg PO TID RF: 0 prednisolone acetate 1 % drops,suspension 1 drp OPL QID RF: 0 acetaminophen 500 mg Tablet 1,000 mg PO Q8 PRN (Reason: pain/fevers) Qty: 90 RF: 0 sennosides [Senokot] 8.6 mg Tablet 17.2 mg PO HS PRN (Reason: constipation) Qty: 28 RF: 0
[2019-11-21 18:32] LABS: Magnesium 2.4 mg/dl (1.8-2.4); Thyroid Stimulating Hormone 0.924 uIu/ml (0.300-4.500); Troponin I 0.052 ng/ml (0-0.045)
[2019-11-21 19:01] LABS: Appearance Urine Clear (Clear); Bilirubin Urine Negative (Negative); Blood Urine Negative (Negative); Color Urine Dark Yellow; Glucose Urine UA Negative (Negative); Ketones Urine Trace (Negative); Leukocyte Esterase Urine Negative (Negative); Nitrite Urine Negative (Negative); Protein Urine Negative (Negative); Specific Gravity Urine 1.028 (1.000-1.030); Urobilinogen Urine Negative (Negative)
[2019-11-21] MEDS ORDERED: OPTIRAY 320 125ml IV PRN (19:15)
--- NOTE | 2019-11-21 19:48 | CT Scan Report ---
CHEST CTA for PULMONARY ARTERIES CT DOSE: 734.49 mGy.cm HISTORY: hypotension, fall, recent surgery TECHNIQUE: Multiaxial CT images of the chest were performed following the intravenous administration of contrast to evaluate the pulmonary arteries. Maximal intensity projection images were also obtaine d. A dose lowering technique was utilized adhering to the principles of ALARA. COMPARISON STUDY: Chest 11/21/2019. FINDINGS: Normal caliber thoracic aorta with no evidence for dissection. Advanced calcified plaque wi thin the left coronary artery. The heart is normal in size. Moderate hiatus hernia containing the pro ximal stomach. Fluid within the nondistended esophagus. No mediastinal or hilar lymphadenopathy. Calc ified hilar lymph nodes are noted. No pleural or pericardial effusions. Limited views of the upper ab domen demonstrate normal liver and spleen. Small calcified right hilar lymph nodes. No filling defect s within the pulmonary arteries to suggest pulmonary embolus. No suspicious lytic are blastic osseous lesions. A few bibasilar linear densities likely representing subsegmental atelectasis. No pneumotho rax. The central airways are patent. No focal lung consolidations to suggest pneumonia. A 3 mm indete rminate pulmonary nodule within the right lower lobe on image 63. IMPRESSION: 1. No evidence for pulmonary embolus. 2. Moderate hiatus hernia. 3. A 3 mm indeterminate pulmonary nodule within the right lower lobe. Please refer to the chart below for recommended follow-up. 4. Advanced calcified plaque within the left coronary arteries. Please refer to below summary of Fleischner criteria recommendations for follow-up of incidental CT n odules ([place], Guidelines for management of small pulmonary nodules detected on CT scans: A sta tement from the Fleischner Society, Radiology 237: [phone].) SOLID NODULES Solitary nodule size: <6 mm * Low risk patients: no follow-up needed * high risk patients: optional CT at 12 months Solitary nodule size: 6-8 mm * Low risk patients: follow-up at 6-12 months, then consider further follow-up at 18-24 months * high risk patients: initial follow-up CT at 6-12 months and then at 18-24 months if no change Solitary nodule size: >8 mm * either low or high risk patients - consider follow-up CT at 3 months, and/or CT-PET, and/or biopsy Multiple nodules size: <6 mm * Low risk patients: no routine follow-up * high risk patients: optional CT at 12 months Multiple nodules size: 6-8 mm * Low risk patients: follow-up at 3-6 months, then consider further follow-up at 18-24 months * high risk patients: follow-up at 3-6 months, then at 18-24 months if no change Multiple nodules size: >8 mm * Low risk patients: follow-up at 3-6 months, then consider further follow-up at 18-24 months * high risk patients: follow-up at 3-6 months, then at 18-24 months if no change Note: newly detected indeterminate nodule in persons 35 years of age or older. * Low risk patients: minimal or absent history of smoking and/or other known risk factors * high risk patients: history of smoking or of other known risk factors (e.g. first degree relative with lung cancer, or exposure to asbestos, radon, uranium) * if a nodule up to 8 mm is partly solid or is ground glass further follow-up is required after 24 m onths to exclude possible slow growing adenocarcinoma ([place]) SUBSOLID NODULES Solitary pure ground-glass nodule * nodule size <6 mm - no CT follow-up required * nodule size >=6 mm - follow-up CT at 6-12 months, then every 2 years until 5 years Solitary part-solid nodule * nodule size <6 mm - no CT follow-up required * nodule size >=6 mm - follow-up CT at 3-6 months. If unchanged, and solid component remains <6 mm, then annual follow-up for 5 years Multiple subsolid nodules * nodule size <6 mm - follow-up CT at 3-6 months, consider further follow-up at 2 and 4 years if sta ble * nodule size >=6 mm - follow-up CT at 3-6 months, subsequent management based on the most suspiciou s nodule(s) ACT 112: Negative or not required by law. Electronically signed by: Spencer Snyder M.D. 11/21/2019 7:47 PM
--- NOTE | 2019-11-21 19:56 | CT Scan Report ---
HEAD CT NONCONTRAST CT DOSE: 537.48 mGy.cm HISTORY: fall, hit head TECHNIQUE: Multiaxial CT images of the head were performed without the use of intravenous contrast. A utomated exposure control was utilized for this study. A dose lowering technique was utilized adheri ng to the principles of ALARA. Comparison: Head CT 12/20/2016. Findings: Partially visualized retention cyst within the right maxillary sinus, unchanged. The mastoi d air cells are clear. The calvarium and skull base are intact. There is no mass, hematoma, midline s hift, acute infarct. White matter hypodensity is nonspecific but suggestive of microvascular ischemic change. The ventricles and sulci demonstrate mild age-related involutional changes. Mild right front al scalp swelling. Impression: No acute intracranial abnormality. Atrophy and microvascular ischemic changes. Mild right frontal sca lp swelling. ACT 112: Negative or not required by law. Electronically signed by: Spencer Snyder M.D. 11/21/2019 7:55 PM
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
[2019-11-22] MEDS ORDERED: ACETAMINOPHEN 500 MG TAB ONE (00:52)
[2019-11-22] MEDS ORDERED: POLYETHYLENE (MIRALAX) 17 GM PACK ONE (00:52)
[2019-11-22] MEDS ORDERED: MAGNESIUM HYDROXIDE SUSP 30 ML UDC PO PRN (01:23)
[2019-11-22] MEDS ORDERED: ONDANSETRON INJ 2 MG/ML 2 ML VIAL IV PRN (01:23)
[2019-11-22] MEDS ORDERED: ALUMINUM/MAGNESIUM SUSP 30 ML UDC PO PRN (01:23)
[2019-11-22] MEDS ORDERED: SENNA 8.6 MG TAB PO PRN (01:23)
[2019-11-22] MEDS ORDERED: ACETAMINOPHEN 500 MG TAB PO PRN (01:23)
[2019-11-22] MEDS ORDERED: NITROGLYCERIN SL 0.4 MG/TAB TAB SL PRN (01:23)
[2019-11-22] MEDS: SODIUM CHLORIDE 0.9% 1000ML 1,000 ML IV SCH ×2 (01:37→13:17)
[2019-11-22 05:57] LABS: Basophils # (auto) 0.02 K/uL (0-0.2); Basophils % (auto) 0.3 %; Eosinophils # (auto) 0.27 K/uL (0-0.5); Eosinophils % (auto) 4.2 %; Hematocrit (blood only) 29.1 % (42-52); Hemoglobin 9.7 g/dL (14.0-18.0); Immature Granulocytes # (auto) 0.01 K/uL (0.00-0.02); Immature Granulocytes % (auto) 0.2 %; Lymphocytes # (auto) 1.03 K/uL (1.2-3.4); Lymphocytes % (auto) 16.2 %; Mean Corpuscular Hemoglobin 32.1 pg (25-34); Mean Corpuscular Hgb Conc 33.3 g/dL (32-36); Mean Corpuscular Volume 96.4 fL (80-100); Mean Platelet Volume 8.8 fL (7.4-10.4); Monocytes # (auto) 0.84 K/uL (0.11-0.59); Monocytes % (auto) 13.2 %; Neutrophils % (auto) 65.9 %; Platelet Count 220 K/uL (130-400); RDW Standard Deviation 52.8 fL (36.4-46.3); Red Blood Count 3.02 M/uL (4.7-6.1); White Blood Count 6.37 K/uL (4.8-10.8)
[2019-11-22 06:55] LABS: BUN Creatinine Ratio 20.6 (10-20); Calcium 8.2 mg/dl (8.5-10.1); Creatinine Clr Calc Pharmacy 54.8 ml/min; Est GFR (African American) 65.5; Est GFR (Non-African American) 56.5; Potassium 4.1 mmol/L (3.5-5.1)
[2019-11-22] MEDS ORDERED: AVODART~ORDER AWAITING ACTION SCH (08:00)
[2019-11-22] MEDS: prednisoLONE acetate 1% OP SUSP 5 ML BTL OPL SCH ×2 (08:19→13:15)
[2019-11-22] MEDS: GABAPENTIN 300 MG CAP PO SCH ×2 (08:21→13:15)
[2019-11-22] MEDS ORDERED: CALCIUM 600MG + VIT D 400 IU TAB PO SCH (09:00)
[2019-11-22] MEDS ORDERED: CYANOCOBALAMIN 500 MCG TABLET (VITAMIN B-12) PO SCH (09:00)
[2019-11-22] MEDS ORDERED: CHOLECALCIFEROL 1,000 UNITS 25 MCG TAB PO SCH (09:00)
[2019-11-22] MEDS ORDERED: DULOXETINE HCL 60 MG CAP PO SCH (09:00)
[2019-11-22] MEDS ORDERED: ASPIRIN 81 MG ECTAB PO SCH (09:00)
[2019-11-22] MEDS ORDERED: ENOXAPARIN INJ 40 MG/0.4 ML SYR SQ SCH (09:00)
[2019-11-22] MEDS ORDERED: CLOPIDOGREL BISULFATE 75 MG TAB PO SCH (09:00)
[2019-11-22] MEDS ORDERED: PANTOprazole 40 MG TAB PO SCH (09:00)
[2019-11-22] MEDS ORDERED: METOPROLOL SUCC 50MG EXT REL TAB PO SCH ×2 (09:00→21:00)
[2019-11-22] MEDS ORDERED: FERROUS SULFATE 325 MG TAB PO SCH (09:00)
[2019-11-22] MEDS ORDERED: AMLODIPINE BESYLATE 5 MG TAB PO SCH (09:00)
[2019-11-22] MEDS ORDERED: ASCORBIC ACID 500 MG TAB PO SCH (09:00)
--- NOTE | 2019-11-22 12:55 | Electrocardiogram Report ---
Test Reason : Blood Pressure : / mmHG Vent. Rate : 073 BPM Atrial Rate : 073 BPM P-R Int : 182 ms QRS Dur : 076 ms QT Int : 392 ms P-R-T Axes : 028 002 081 degrees QTc Int : 431 ms Poor data quality, interpretation may be adversely affected Sinus rhythm with Premature atrial complexes Inferior infarct (cited on or before 14-OCT-2019) Abnormal ECG When compared with ECG of 14-OCT-2019 10:06, Premature atrial complexes are now Present T wave inversion less evident in Lateral leads Confirmed by Oscar Le ([id number]) on 11/22/2019 12:55:21 PM Referred By: REFERRED SELF Confirmed By:Oscar Le
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
[2019-11-22] MEDS ORDERED: LEVOTHYROXINE SODIUM 100 MCG TABLET PO SCH (21:00)
[2019-11-22] MEDS ORDERED: POLYETHYLENE (MIRALAX) 17 GM PACK PO SCH (21:00)
[2019-11-22] MEDS ORDERED: ATORVASTATIN 40 MG TAB PO SCH (21:00)
--- NOTE | 2019-11-23 01:48 | Billing Data ---
Date of Service November 23, 2019 Coding Level of Care Code 68338 Initial Inpt Care Lvl 3
== END 2019-11-22 15:58 | disposition home health service (06) ==
LOC: ED 17:13 → 2N 17:13 → SUATTDRO 23:35 → 2N 11-22 01:11